=== PATIENT | female | born 1955 | race Caucasian/White ===

== ENCOUNTER → 2017-02-21 | Outpatient (CLI) | payer MEDICARE, MEDICAID ==
[~2017-02-21] MED LIST: /FENO48TA PO; /QUET10TA PO; CALCTAB52 PO; CAMP333T PO; CETI10TA PO; FIBE625T4 PO; FOSA70TA PO; IBUP200T2 PO; MAGN200T3 PO; METF500T PO; MULTLIQ7 PO; NEXI40GR PO; PAXI40TA2 PO; PERC7.5T12 PO; SPIRIVA INH; VITA100037 PO; ZOCO40TA PO
== END ==
LOC: M WUC 09:01
PROVIDERS: ATTEND Anesthesiology Pain Medicine
DX: Z79.899 Other long term (current) drug therapy (principal)

== ENCOUNTER → 2017-08-03 | Outpatient (CLI) | payer MEDICARE, MEDICAID ==
[~2017-08-03] MED LIST changes: +DEBR6.5S4 AD; +FARX1TAB3 PO; +FLON1SPR; +INCR1INH IN; +LAMI1TAB9 PO; +TRAD5TAB PO; +WELLTAB38 PO; +ZOLO100T PO
[2017-08-03 07:26] LABS: MEAN CORPUSCULAR HEMOGLOBIN 31.4 pg (27.0-33.0); MEAN CORPUSCULAR HGB CONC 32.7 g/dl (32.0-36.5); MEAN CORPUSCULAR VOLUME 95.9 fl (80.0-96.0); RED CELL DISTRIBUTION WIDTH 13.5 % (11.5-14.5); WHITE BLOOD COUNT 3.4 K/mm3 (4.0-10.0)
[2017-08-03 07:44] LABS: ALBUMIN 3.9 GM/DL (3.2-5.2); ALBUMIN/GLOBULIN RATIO 1.18 (1.00-1.93); ALKALINE PHOSPHATASE 28 U/L (45-117); ALT/SGPT 26 U/L (12-78); ANION GAP 9 MEQ/L (8-16); AST/SGOT 17 U/L (15-37); BILIRUBIN,TOTAL 0.2 MG/DL (0.2-1.0); BLOOD UREA NITROGEN 18 MG/DL (7-18); CALCIUM LEVEL 9.2 MG/DL (8.8-10.2); CARBON DIOXIDE LEVEL 30 MEQ/L (21-32); CHLORIDE LEVEL 106 MEQ/L (98-107); CHOLESTEROL LEVEL 218 MG/DL (<200); CREATININE FOR GFR 0.55 MG/DL (0.55-1.02); GLOMERULAR FILTRATION RATE > 60.0 (>45); GLUCOSE, FASTING 141 MG/DL (80-110); POTASSIUM SERUM 4.4 MEQ/L (3.5-5.1); SODIUM LEVEL 145 MEQ/L (136-145); TOTAL PROTEIN 7.2 GM/DL (6.4-8.2); TRIGLYCERIDES LEVEL 148 MG/DL (<150)
== END ==
LOC: M LAB 06:12
PROVIDERS: ATTEND Nurse Practitioner Family
DX: E11.8 Type 2 diabetes mellitus with unspecified complications (principal); E78.2 Mixed hyperlipidemia

== ENCOUNTER → 2017-09-06 | Outpatient (CLI) | payer MEDICARE, MEDICAID ==
[~2017-09-06] MED LIST changes: +ISOVUE-370 76% 100ML VIAL (Q9967) As Ordered ONE
--- NOTE | 2017-09-06 17:10 | REP ---
CT UROGRAM, WITH AND WITHOUT IV CONTRAST: CT urogram is performed. Images of the abdomen and pelvis are performed prior to and following the intravenous administration of 100 mL of Isovue-370 with delayed images also performed. Sagittal and coronal reconstruction images are performed. Comparison made with prior study of 05/08/2014. Visualized lung bases demonstrate mild interstitial fibrosis. There are tiny calcified granulomas in the liver and spleen without other definite intrinsic abnormality. The adrenals and pancreas appear unremarkable. The common bile duct is mildly dilated up to 9 mm with no definite intraluminal calculus. Small cysts are seen throughout both kidneys. There are also bilateral calculi. There is a calculus in the mid to lower right renal collecting system measuring approximately 3 mm in diameter. An oval calcification in the right lower pole collecting system measures approximately 1.4 cm in maximum diameter. Another adjacent linear calcification is seen just posterior to that. In the left renal collecting system inferiorly, there is an irregular calcification measuring 7 mm in diameter. There is moderately severe right hydronephrosis without definite hydroureter. There is no left hydronephrosis. Visualize left ureter is not dilated. The right ureter is not opacified with contrast on the delayed images. There is some excretion into the dilated right pelvicaliceal system. There is no abdominal aortic aneurysm. There is no evidence of lymphadenopathy in the abdomen or pelvis. No free air or free fluid is seen. No gross bowel abnormality is seen although evaluation is limited due to lack of oral contrast and lack and the relative lack of intraperitoneal fat. There is no definite pelvic mass. Urinary bladder is mildly distended and is not optimally evaluated. There is a small hiatal hernia. IMPRESSION: Calcified granulomas in the liver and spleen. Common bile duct dilated up to 9 mm without a definite intraluminal calculus. Small cysts are seen of both kidneys and there are also bilateral renal calculi as discussed above. There is moderately severe right hydronephrosis without hydroureter of uncertain significance. Without evidence of a ureteral calculus, consideration must be made for a stricture or neoplastic lesion of the proximal right ureter at the ureteropelvic junction. Signed by Donny Peña MD 09/07/2017 07:56 P
== END ==
LOC: M RAD 15:39
PROVIDERS: ATTEND Nurse Practitioner Women's Health
DX: R31.9 Hematuria, unspecified (principal)
CPT/HCPCS: 74178; Q9967

== ENCOUNTER 2017-09-29 11:45 | Day surgery (SDC) | payer MEDICARE, MEDICAID ==
[~2017-09-29] VITALS: Ht 154.9 cm; Wt 53.5 kg
[~2017-09-29 11:45] MED LIST changes: -ISOVUE-370 76% 100ML VIAL (Q9967) As Ordered ONE
[2017-09-29] MEDS ORDERED: LIDOCAINE 1% MDV 20ML VIAL SQ PRN (12:00)
[2017-09-29] MEDS ORDERED: LR 1,000 ML IV ONE (12:00)
[2017-09-29] MEDS ORDERED: ALBUTEROL SULFATE 2.5 MG/0.5 ML INH NEB SOLN As Ordered ONE (12:41)
[2017-09-29] MEDS ORDERED: ALBUTEROL SULFATE 2.5 MG/0.5 ML INH NEB SOLN INH ONE ×2 (13:15→16:00)
[2017-09-29] MEDS ORDERED: CONRAY-60 60% 50ML VIAL (Q9961) As Ordered ONE (13:41)
[2017-09-29] MEDS ORDERED: MIDAZOLAM INJ 2 MG/2 ML VIAL (J2250) As Ordered ONE (14:04)
[2017-09-29] MEDS ORDERED: fentaNYL 100 MCG/2 ML INJECTION (J3010) As Ordered ONE (14:04)
[2017-09-29] MEDS ORDERED: PROPOFOL 200 MG/20 ML VIAL As Ordered ONE (14:04)
[2017-09-29] MEDS ORDERED: ONDANSETRON 4MG/2ML VIAL (J2405) As Ordered ONE (14:13)
[2017-09-29] MEDS ORDERED: hydrALAZINE INJ 20 MG/ML VIAL As Ordered ONE (15:53)
[2017-09-29] MEDS: hydrALAZINE INJ 20 MG/ML VIAL IV SCH ×2 (15:59→16:12)
[2017-09-29] MEDS ORDERED: fentaNYL 100 MCG/2 ML INJECTION (J3010) IV PRN (16:00)
[2017-09-29] MEDS ORDERED: ONDANSETRON 4MG/2ML VIAL (J2405) IV PRN (16:00)
[2017-09-29] MEDS ORDERED: PERCOCET 5MG/325MG TAB PO PRN ×2 (16:00)
[2017-09-29] MEDS ORDERED: LR 1,000 ML IV SCH (16:00)
[2017-09-29 16:12] VITALS: BP 185/97
[2017-09-29 17:15] VITALS: BP 132/92
--- NOTE | 2017-09-30 06:57 | REP ---
Retrograde pyelogram: Four views. History: Microscopic hematuria. 41 seconds of fluoroscopy time is reported. Findings: A sequence of four last image hold fluoroscopic spot radiographs of the abdomen document ureteral cannulation, contrast injection, hydronephrosis, and ureteral stenting. No laterality markers are apparent. Signed by Javi Chaparro MD 09/30/2017 07:42 A
--- NOTE | 2017-09-30 20:38 | RO ---
DATE OF PROCEDURE: 09/29/2017 PREPROCEDURE DIAGNOSIS: Microscopic hematuria, right hydronephrosis. POSTPROCEDURE DIAGNOSIS: Right ureteral strictures, microscopic hematuria, right hydronephrosis. PROCEDURE PERFORMED: Cystoscopy, right ureteroscopy with biopsies, right retrograde pyelogram with intraoperative interpretation of images, right ureteral stent placement. SURGEON: Dr. Marcelino Salas INTERIOR DESIGN INSTRUCTOR: None. ANESTHESIA: General. OPERATIVE INDICATIONS: This is a 62-year-old female who presented to our office for a workup of microscopic hematuria. A CT urogram was performed and notable for severe right hydronephrosis down to the level of the proximal ureter with no obvious cause of obstruction. She was brought to the operating room today to investigate this. DESCRIPTION OF PROCEDURE: The patient was brought to the operating room and general anesthesia was induced. Prophylactic antibiotics were infused. She was then placed in the dorsal lithotomy position and prepped and draped in the usual sterile fashion. A rigid cystoscope was then inserted into the urethral meatus and advanced to the bladder. The bladder was thoroughly examined and there were no abnormalities seen. Next, a guidewire was advanced up the right collecting system. We then went up the right collecting system with a short semi-rigid ureteroscope, and of note, there were several areas of strictures within the right ureter. The ureteral mucosa appeared edematous, and in some areas, it did appear like she might have had small masses. At this point , several ureteral washings were obtained along the course of the entire ureter, all the way up to the kidney. These ureteral washings were handed off the table and will be sent for pathologic analysis. The ureteroscope was then advanced up into the proximal ureter, and a few biopsies were obtained of abnormal appearing mucosa. Once that was done, the short semi-rigid ureteroscope was traded out for a flexible ureteroscope, and the kidney was thoroughly examined. Of note, I did not see any stones within the kidney. She had large amounts of whitish-yellow debris floating around and settling at the bottom of her calices. I did not see any obvious tumors inside her kidney either. At this point, a retrograde pyelogram was performed. It was notable for severe right hydronephrosis with no extravasation. The ureteroscope was then removed, and the previously placed wire was utilized to advance a #7-Finnish x 22-32 cm JJ ureteral stent up into the right collecting system. The wire was then removed, and there were adequate curls of the stent in the right renal pelvis and in the bladder. The bladder was then emptied of all fluids, and this marked the conclusion of the procedure. The patient was then taken out of the dorsal lithotomy position, awakened from anesthesia and transported to the recovery room in stable condition. ESTIMATED BLOOD LOSS: 0 mL. COMPLICATIONS: None. SPECIMENS: Right ureteral washing for cytology, right ureteral biopsies. PLAN: The patient will followup in the clinic in a week or two to discuss pathology results and also discuss management of her stent. EDWARD
== END 2017-09-29 17:35 | disposition home or self-care (01) ==
LOC: M SDC 11:45
PROVIDERS: ATTEND Urology
DX: N13.30 Unspecified hydronephrosis (principal); R31.29 Other microscopic hematuria; E11.9 Type 2 diabetes mellitus without complications; I10 Essential (primary) hypertension; E78.5 Hyperlipidemia, unspecified; K21.9 Gastro-esophageal reflux disease without esophagitis; F32.9 Major depressive disorder, single episode, unspecified; F41.9 Anxiety disorder, unspecified; Z79.899 Other long term (current) drug therapy; F70 Mild intellectual disabilities
CPT/HCPCS: 52204; 52332; 74420; 88108; 88305; C1769; C1894; C2617; J2250; J2405; J3010; Q9961

== ENCOUNTER → 2017-10-18 | Outpatient (REF) | payer MEDICARE, MEDICAID ==
[~2017-10-18] MED LIST changes: +CEFAD50CA PO; +MACR100C43 PO; +VITMTA PO
== END ==
LOC: M LAB REF 09:29
PROVIDERS: ATTEND Physician Assistant
DX: N39.0 Urinary tract infection, site not specified (principal)

== ENCOUNTER 2017-10-22 05:54 | Day surgery (SDC) | payer MEDICARE, MEDICAID ==
[~2017-10-22] VITALS: Ht 162.6 cm; Wt 51.6 kg
[~2017-10-22 05:54] MED LIST changes: -CEFAD50CA PO; -MACR100C43 PO
[2017-10-22] MEDS ORDERED: LR 1,000 ML IV ONE (06:15)
[2017-10-22] MEDS ORDERED: MACR100C43 PO (06:56)
[2017-10-22] MEDS ORDERED: CEFAD50CA PO (06:56)
[2017-10-22 07:42] LABS: MEAN CORPUSCULAR HEMOGLOBIN 29.3 pg (27.0-33.0); MEAN CORPUSCULAR HGB CONC 32.4 g/dl (32.0-36.5); MEAN CORPUSCULAR VOLUME 90.4 fl (80.0-96.0); PLATELET COUNT, AUTOMATED 267 10^3/uL (150-450); RED CELL DISTRIBUTION WIDTH 14.6 % (11.5-14.5)
[2017-10-22 07:56] LABS: ANION GAP 6 MEQ/L (8-16); BLOOD UREA NITROGEN 19 MG/DL (7-18); CALCIUM LEVEL 9.3 MG/DL (8.8-10.2); CARBON DIOXIDE LEVEL 31 MEQ/L (21-32); CHLORIDE LEVEL 106 MEQ/L (98-107); CREATININE FOR GFR 0.47 MG/DL (0.55-1.02); GLOMERULAR FILTRATION RATE > 60.0 (>45); GLUCOSE, FASTING 170 MG/DL (80-110); POTASSIUM SERUM 3.6 MEQ/L (3.5-5.1); SODIUM LEVEL 143 MEQ/L (136-145)
[2017-10-22] MEDS ORDERED: CONRAY-60 60% 50ML VIAL (Q9961) As Ordered ONE (09:22)
[2017-10-22] MEDS ORDERED: fentaNYL 100 MCG/2 ML INJECTION (J3010) As Ordered ONE (09:37)
[2017-10-22] MEDS ORDERED: MIDAZOLAM INJ 2 MG/2 ML VIAL (J2250) As Ordered ONE (09:37)
[2017-10-22] MEDS ORDERED: KETOROLAC 60 MG/2 ML VIAL (J1885) As Ordered ONE (09:38)
[2017-10-22] MEDS ORDERED: ONDANSETRON 4MG/2ML VIAL (J2405) As Ordered ONE (09:38)
[2017-10-22] MEDS ORDERED: dexameTHASONE 4 MG/ML 1ML VIAL (J1100) As Ordered ONE (09:38)
[2017-10-22] MEDS ORDERED: PROPOFOL 200 MG/20 ML VIAL As Ordered ONE (09:38)
[2017-10-22] MEDS ORDERED: ePHEDrine SULFATE 25 MG/5 ML(5MG/ML) SYRINGE As Ordered ONE (09:40)
[2017-10-22] MEDS ORDERED: LR 1,000 ML IV SCH (10:45)
[2017-10-22] MEDS ORDERED: HYDROmorphone HCL 1 MG/ML SYRINGE (J1170) IV PRN (10:45)
[2017-10-22] MEDS ORDERED: ONDANSETRON 4MG/2ML VIAL (J2405) IV PRN (10:45)
[2017-10-22] MEDS ORDERED: PERCOCET 5MG/325MG TAB PO PRN ×2 (10:45)
[2017-10-22] MEDS ORDERED: fentaNYL 100 MCG/2 ML INJECTION (J3010) IV PRN (10:45)
[2017-10-22 12:14] VITALS: BP 174/112
--- NOTE | 2017-10-23 08:12 | RO ---
DATE OF PROCEDURE: 10/22/2017 PREPROCEDURE DIAGNOSIS: Right ureteral stricture. POSTPROCEDURE DIAGNOSIS: Right ureteral stricture. PROCEDURE: Cystoscopy, right ureteroscopy with balloon dilation of ureteral strictures, right retrograde pyelogram with intraoperative interpretation of images, right ureteral stent exchange. SURGEON: Dr. Marcelino Salas TELE RN: None. ANESTHESIA: General. OPERATIVE INDICATIONS: This is a 62-year-old female who underwent recent right ureteroscopy with biopsies. Her biopsies came back negative for cancer. On ureteroscopy, she was noted to have moderate narrowing and strictures of very proximal ureter. She was brought to the operating room today for treatment. DESCRIPTION OF PROCEDURE: The patient was brought to the operating room and general anesthesia induced. Prophylactic antibiotics were infused. She was then placed in the dorsal lithotomy position and prepped and draped in the usual sterile fashion. A rigid cystoscope was then inserted into the urethral meatus and advanced to the bladder. Once within the bladder, the previously placed stent was seen. The stent was then grasped and withdrawn until the distal end of the stent was seen. I then advanced a wire up the stent and into the right collecting system. The stent was then removed leaving the wire in place. I then advanced the ureteral access sheath up into the right collecting system. Of note, the access sheath was able to be advanced into the ureter a lot easier than it was during her previous procedure. Once the access sheath was in, I then advanced a flexible ureteroscope up into the right collecting system. Of note, the patient still had moderate narrowing of her proximal right ureter. A retrograde pyelogram was performed and was notable for hydronephrosis down to the level of the proximal ureter. I then inserted a balloon and balloon dilated the proximal ureter in several different areas. Once that was done, I went back in with the flexible ureteroscope and examined it, and it did appear that the ureter did open some. After that, the ureteroscope was removed along with the access sheath and no additional abnormalities were seen other than, of note, there did appear to be several polyps along the length of the ureter. At this point, I then utilized the previously placed wire to advance a 7-Kiswahili x 22-32 cm JJ ureteral stent up into the right collecting system. The wire was then removed, and there were adequate curls of the stent in the right renal pelvis and in the bladder. The bladder was then emptied of all fluids and this marked the conclusion of the procedure. The patient was then taken out of the dorsal lithotomy position, awakened from anesthesia and transported to the recovery room in stable condition. Estimated blood loss: 0 mL. Complications: None. Specimens: None. PLAN: I will have the patient followup in the clinic in a few weeks for stent removal. I will followup that up with a renal ultrasound in approximately 6 weeks to see if there is any persistent hydronephrosis. EDWARD
== END 2017-10-22 12:35 | disposition home or self-care (01) ==
LOC: M SDC 05:54
PROVIDERS: ATTEND Urology
DX: N13.1 Hydronephrosis with ureteral stricture, not elsewhere classified (principal); N39.0 Urinary tract infection, site not specified; E11.9 Type 2 diabetes mellitus without complications; I10 Essential (primary) hypertension; J44.9 Chronic obstructive pulmonary disease, unspecified; E78.5 Hyperlipidemia, unspecified; K21.9 Gastro-esophageal reflux disease without esophagitis; G43.909 Migraine, unspecified, not intractable, without status migrainosus; E20.9 Hypoparathyroidism, unspecified; F32.9 Major depressive disorder, single episode, unspecified; F41.9 Anxiety disorder, unspecified; F42.9 Obsessive-compulsive disorder, unspecified; F70 Mild intellectual disabilities; M85.80 Other specified disorders of bone density and structure, unspecified site; Z87.442 Personal history of urinary calculi; Z87.891 Personal history of nicotine dependence; Z88.4 Allergy status to anesthetic agent; Z79.899 Other long term (current) drug therapy; Z79.51 Long term (current) use of inhaled steroids; Z79.84 Long term (current) use of oral hypoglycemic drugs
CPT/HCPCS: 36415; 52332; 52341; 74420; 80048; 85027; C1758; C1894; C2617; J0690; J1100; J1885; J2250; J2405; J3010; Q9961

== ENCOUNTER → 2017-11-03 | Outpatient (CLI) | payer MEDICARE, MEDICAID ==
[~2017-11-03] MED LIST changes: +CEFAD50CA PO; +MACR100C43 PO
--- NOTE | 2017-11-03 10:54 | REPMRS ---
Patient History The patient states she had a clinical breast exam in 11/07 Patient is postmenopausal. No known family history of cancer. Digital Woman Screen Mammo: November 03, 2017 - Exam #: [id number] Bilateral CC and MLO view(s) were taken. Technologist: [place], Technologist Prior study comparison: August 14, 2016, digital woman screen mammo performed at [facility] to [facility]. August 14, 2015, digital woman screen mammo performed at [facility] to [facility]. FINDINGS: The breast tissue is extremely dense which could obscure a lesion on mammography. There is no evidence of cancer on this mammogram. ASSESSMENT: BI-RADS/ACR category 2 mammogram. Benign finding(s). Recommendation Routine screening mammogram of both breasts in 1 year (for women over age 40). This mammogram was interpreted with the aid of an FDA-approved computer-aided dectection system. Electronically Signed By: Donny Peña MD 11/03/17 [id number]
== END ==
LOC: M WHC 09:16
PROVIDERS: ATTEND Nurse Practitioner Family
DX: Z12.31 Encounter for screening mammogram for malignant neoplasm of breast (principal); Z78.0 Asymptomatic menopausal state

== ENCOUNTER → 2017-11-03 | Outpatient (REF) | payer MEDICARE, MEDICAID | LOC: M SFHCWAGY 09:35 | PROVIDERS: ATTEND Nurse Practitioner Family | DX: Z12.4 Encounter for screening for malignant neoplasm of cervix (principal); N95.2 Postmenopausal atrophic vaginitis ==

== ENCOUNTER → 2017-12-10 | Outpatient (CLI) | payer MEDICARE, MEDICAID ==
[2017-12-10 15:50] LABS: CREATININE FOR GFR 0.63 MG/DL (0.55-1.02); FREE T4 0.89 NG/DL (0.76-1.46); GLOMERULAR FILTRATION RATE > 60.0 (>45)
[2017-12-10 15:50] LABS: BLOOD UREA NITROGEN 16 MG/DL (7-18)
== END ==
LOC: M LAB 14:41
DX: E03.9 Hypothyroidism, unspecified (principal); E85.9 Amyloidosis, unspecified
CPT/HCPCS: 82565

== ENCOUNTER → 2018-01-04 | Outpatient (CLI) | payer MEDICARE, MEDICAID | LOC: M RAD 10:06 | DX: N13.5 Crossing vessel and stricture of ureter without hydronephrosis (principal) | CPT/HCPCS: 76775 ==

== ENCOUNTER → 2018-01-05 | Outpatient (REF) | payer MEDICARE, MEDICAID | LOC: M LAB REF 13:36 | DX: E85.9 Amyloidosis, unspecified (principal) | CPT/HCPCS: 88305; 88313 ==

== ENCOUNTER → 2018-02-01 | Outpatient (CLI) | payer MEDICARE, MEDICAID | LOC: M RAD 10:52 | DX: N13.5 Crossing vessel and stricture of ureter without hydronephrosis (principal); R93.41 Abnormal radiologic findings on diagnostic imaging of renal pelvis, ureter, or bladder | CPT/HCPCS: 74176 ==

== ENCOUNTER → 2018-02-15 | Outpatient (CLI) | payer MEDICARE, MEDICAID ==
[2018-02-15 07:48] LABS: HEMATOCRIT 39.8 % (36.0-47.0); HEMOGLOBIN 12.1 g/dl (12.0-16.0); MEAN CORPUSCULAR HEMOGLOBIN 26.8 pg (27.0-33.0); MEAN CORPUSCULAR HGB CONC 30.4 g/dl (32.0-36.5); MEAN CORPUSCULAR VOLUME 88.1 fl (80.0-96.0); PLATELET COUNT, AUTOMATED 300 10^3/uL (150-450); RED BLOOD COUNT 4.52 10^6/uL (4.00-5.40); RED CELL DISTRIBUTION WIDTH 15.3 % (11.5-14.5); WHITE BLOOD COUNT 4.7 10^3/uL (4.0-10.0)
[2018-02-15 08:02] LABS: ALBUMIN 3.9 GM/DL (3.2-5.2); ALBUMIN/GLOBULIN RATIO 1.15 (1.00-1.93); ALKALINE PHOSPHATASE 48 U/L (45-117); ALT/SGPT 26 U/L (12-78); ANION GAP 5 MEQ/L (8-16); AST/SGOT 17 U/L (7-37); BILIRUBIN,TOTAL 0.2 MG/DL (0.2-1.0); BLOOD UREA NITROGEN 19 MG/DL (7-18); CALCIUM LEVEL 9.1 MG/DL (8.8-10.2); CARBON DIOXIDE LEVEL 34 MEQ/L (21-32); CHLORIDE LEVEL 105 MEQ/L (98-107); CHOLESTEROL LEVEL 224 MG/DL (<200); CHOLESTEROL RISK RATIO 2.765 (<5); CREATININE FOR GFR 0.49 MG/DL (0.55-1.30); GLOMERULAR FILTRATION RATE > 60.0 (>45); GLUCOSE, FASTING 171 MG/DL (70-100); HDL CHOLESTEROL 81 MG/DL (>40); LDL CHOLESTEROL 117.6 MG/DL (<100); NON-HDL-C 143 MG/DL; SODIUM LEVEL 144 MEQ/L (136-145); TOTAL PROTEIN 7.3 GM/DL (6.4-8.2); TRIGLYCERIDES LEVEL 127 MG/DL (<150)
== END ==
LOC: M LAB 06:10
DX: E11.9 Type 2 diabetes mellitus without complications (principal); Z01.818 Encounter for other preprocedural examination (principal); I10 Essential (primary) hypertension; E78.5 Hyperlipidemia, unspecified; N39.0 Urinary tract infection, site not specified; R35.0 Frequency of micturition; R39.14 Feeling of incomplete bladder emptying
CPT/HCPCS: 80053

== ENCOUNTER → 2018-02-15 | Outpatient (REF) | payer MEDICARE, MEDICAID | LOC: M SMT 16:47 | DX: Z01.818 Encounter for other preprocedural examination (principal); N13.5 Crossing vessel and stricture of ureter without hydronephrosis; N39.0 Urinary tract infection, site not specified | CPT/HCPCS: 87088; 87186 ==

== ENCOUNTER 2018-03-11 07:20 | Day surgery (SDC) | payer MEDICARE, MEDICAID ==
[2018-03-11 08:25] LABS: BEDSIDE GLUCOSE 162 MG/DL (80-115)
[2018-03-11] MEDS: LR 1,000 ML IV ×2 (08:26)
[2018-03-11] MEDS ORDERED: fentaNYL 100 MCG/2 ML INJECTION (J3010) As Ordered ×2 (10:20)
[2018-03-11] MEDS ORDERED: MIDAZOLAM INJ 2 MG/2 ML VIAL (J2250) As Ordered ×2 (10:20)
[2018-03-11] MEDS ORDERED: LIDOCAINE 2% INJ 100 MG/5 ML SDV (FOR ANES.) As Ordered ×2 (10:22)
[2018-03-11] MEDS ORDERED: PROPOFOL 200 MG/20 ML VIAL As Ordered ×2 (10:22)
[2018-03-11] MEDS: CONRAY-60 60% 50ML VIAL (Q9961) As Ordered ×2 (10:36)
[2018-03-11] MEDS: LIDOCAINE 2% 5ML JELLY UROJET As Ordered ×2 (10:36)
[2018-03-11] MEDS ORDERED: ONDANSETRON 4MG/2ML VIAL (J2405) As Ordered ×2 (11:25)
== END 2018-03-11 12:16 | disposition home or self-care (01) ==
LOC: M SDC 07:20
DX: N13.5 Crossing vessel and stricture of ureter without hydronephrosis (principal); I10 Essential (primary) hypertension; E78.5 Hyperlipidemia, unspecified; E11.9 Type 2 diabetes mellitus without complications; J44.9 Chronic obstructive pulmonary disease, unspecified; K21.9 Gastro-esophageal reflux disease without esophagitis; G31.84 Mild cognitive impairment of uncertain or unknown etiology; Z79.899 Other long term (current) drug therapy
CPT/HCPCS: 52332

== ENCOUNTER 2018-03-14 21:25 | Inpatient (IN) | payer MEDICARE, MEDICAID ==
[2018-03-14] MEDS ORDERED: ACETAMINOPHEN 325 MG TAB PO (22:00)
[2018-03-14] MEDS ORDERED: diphenhydrAMINE INJ 50MG/ML VIAL (J1200) IV (22:03)
[2018-03-14] MEDS: IBUPROFEN 600 MG TAB PO (22:07)
[2018-03-14] MEDS: cefTRIAXone SOD 2 GM in D5W MINI-BAG PLUS 50 ML IV (22:07)
[2018-03-14 22:37] LABS: HEMATOCRIT 32.4 % (36.0-47.0); HEMOGLOBIN 10.2 g/dl (12.0-15.5); MEAN CORPUSCULAR HEMOGLOBIN 25.8 pg (27.0-33.0); MEAN CORPUSCULAR HGB CONC 31.5 g/dl (32.0-36.5); PLATELET COUNT, AUTOMATED 186 10^3/uL (150-450); RED BLOOD COUNT 3.95 10^6/uL (4.00-5.40); RED CELL DISTRIBUTION WIDTH 15.8 % (11.5-14.5); WHITE BLOOD COUNT 6.6 10^3/uL (4.0-10.0)
[2018-03-14 23:00] LABS: LACTIC ACID SEPSIS PROTOCOL 1.5 MMOL/L (0.4-2.0)
[2018-03-14 23:00] LABS: ALBUMIN/GLOBULIN RATIO 0.91 (1.00-1.93); ALKALINE PHOSPHATASE 46 U/L (45-117); ALT/SGPT 19 U/L (12-78); ANION GAP 7 MEQ/L (8-16); AST/SGOT 13 U/L (7-37); BILIRUBIN,DIRECT 0.1 MG/DL (0.0-0.2); BILIRUBIN,TOTAL 0.3 MG/DL (0.2-1.0); BLOOD UREA NITROGEN 30 MG/DL (7-18); CALCIUM LEVEL 9.1 MG/DL (8.8-10.2); CARBON DIOXIDE LEVEL 28 MEQ/L (21-32); CHLORIDE LEVEL 100 MEQ/L (98-107); CREATININE FOR GFR 0.76 MG/DL (0.55-1.30); GLOMERULAR FILTRATION RATE > 60.0 (>45); GLUCOSE, FASTING 222 MG/DL (70-100); POTASSIUM SERUM 3.4 MEQ/L (3.5-5.1); SODIUM LEVEL 135 MEQ/L (136-145); TOTAL PROTEIN 6.3 GM/DL (6.4-8.2)
[2018-03-14 23:02] LABS: APPEARANCE, URINE CLOUDY (CLEAR); BACTERIA, URINE AUTO 1+ (NEGATIVE); BILIRUBIN, URINE AUTO NEGATIVE (NEGATIVE); BLOOD, URINE BLOOD 3+ (NEGATIVE); COLOR, URINE YELLOW (YELLOW); GLUCOSE, URINE (UA) AUTO 3+ mg/dL (NEGATIVE); KETONE, URINE AUTO NEGATIVE (NEGATIVE); LEUKOCYTE ESTERASE, URINE AUTO 3+ (NEGATIVE); MUCUS, URINE SMALL (NEGATIVE); NITRITE, URINE AUTO POSITIVE (NEGATIVE); PROTEIN, URINE AUTO 2+ mg/dL (NEGATIVE); RBC, URINE AUTO TNTC /HPF (0-3); SQUAMOUS EPITHELIAL CELL UR AU 0 /HPF (0-6); UROBILINOGEN, URINE AUTO 0.2 mg/dL (0.0-2.0); WBC, URINE AUTO TNTC /HPF (0-3)
[2018-03-14 23:04] LABS: ADD MANUAL DIFFER YES; DIFF SLIDE NUMBER 369; POSITIVE MORPH POS FLAG
[2018-03-14] MEDS: NS 1,000 ML IV (23:06)
[2018-03-14 23:42] LABS: ANISOCYTOSIS 1+; ATYPICAL LYMPH 1 % (0-5); BANDS 1 % (< 11); BASOPHILS 2 % (0-4); LYMPHOCYTES 4 % (16-52); MONOCYTES 3 % (0-8); NEUTROPHILS 89 % (35-75); PLATELET ESTIMATE NORMAL (NORMAL)
[2018-03-15 01:58] LABS: ABG BASE EXCESS 1.5 (-2.0-2.0); ABG HCO3 25.2 MEQ/L (22.0-26.0); ABG O2 SATURATION 97.7 % (95.0-99.0); ABG PARTIAL PRESSURE CO2 36.5 mmHg (35.0-45.0); ABG PARTIAL PRESSURE O2 90.1 mmHg (75.0-100.0); ABG STANDARD HCO3 25.8 MEQ/L (22.0-26.0); ABG TOTAL CO2 26.3 MEQ/L (23.0-31.0); ABG pH (ARTERIAL) 7.457 UNITS (7.350-7.450)
[2018-03-15] MEDS ORDERED: MORPHINE 4 MG/ML 1ML VIAL/SYRINGE (J2270) IV (02:30)
[2018-03-15] MEDS ORDERED: ONDANSETRON 4MG/2ML VIAL (J2405) IV ×2 (02:30→13:45)
[2018-03-15] MEDS ORDERED: GLUCAGON FOR INJ 1 MG VIAL (J1610) SC (03:15)
[2018-03-15] MEDS ORDERED: GLUCOSE 4 GM CHEW TABLET PO (03:15)
[2018-03-15] MEDS ORDERED: DEXTROSE 50% 50 ML SYRINGE IV (03:15)
[2018-03-15] MEDS: ACETAMINOPHEN TAB 650MG DOSE (2X325MG) PO ×2 (04:15→20:31)
[2018-03-15] MEDS: NS 1,000 ML IV ×3 (04:16→18:39)
[2018-03-15 06:07] LABS: BEDSIDE GLUCOSE 162 MG/DL (80-115)
[2018-03-15] MEDS: HumaLOG INSULIN (NovoLOG) PER UNIT SC ×4 (07:01→21:00)
[2018-03-15] MEDS: buPROPion (WELLBUTRIN SR) 100 MG SR TAB PO ×2 (09:12→19:35)
[2018-03-15] MEDS: ACAMPROSATE CALCIUM 333 MG TABLET (CAMPRAL) PO ×2 (09:12→19:35)
[2018-03-15] MEDS: SERTRALINE 100 MG TAB PO (09:12)
[2018-03-15] MEDS: cefTRIAXone SOD 1 GM in D5W MINI-BAG PLUS 50 ML IV ×2 (09:12→20:31)
[2018-03-15] MEDS ORDERED: IPRATROPIUM 0.5MG/ALBUTEROL 2.5MG INH SOL UD 3ML (DUONEB)(J7620) NEB (11:15)
[2018-03-15 11:45] LABS: BEDSIDE GLUCOSE 163 MG/DL (80-115)
[2018-03-15] MEDS ORDERED: MIDAZOLAM INJ 2 MG/2 ML VIAL (J2250) As Ordered (11:58)
[2018-03-15] MEDS ORDERED: fentaNYL 100 MCG/2 ML INJECTION (J3010) As Ordered (12:07)
[2018-03-15] MEDS ORDERED: PROPOFOL 200 MG/20 ML VIAL As Ordered (12:11)
[2018-03-15] MEDS ORDERED: LIDOCAINE 2% INJ 100 MG/5 ML SDV (FOR ANES.) As Ordered (12:11)
[2018-03-15] MEDS ORDERED: dexameTHASONE 4 MG/ML 1ML VIAL (J1100) As Ordered (12:11)
[2018-03-15] MEDS ORDERED: ONDANSETRON 4MG/2ML VIAL (J2405) As Ordered (12:12)
[2018-03-15] MEDS: LIDOCAINE 2% 5ML JELLY UROJET As Ordered (12:44)
[2018-03-15] MEDS: CONRAY-60 60% 50ML VIAL (Q9961) As Ordered (12:45)
[2018-03-15] MEDS: LR 1,000 ML IV (13:45)
[2018-03-15] MEDS ORDERED: fentaNYL 100 MCG/2 ML INJECTION (J3010) IV (13:45)
[2018-03-15] MEDS: MAGNESIUM OXIDE 400 MG TAB (MAG-OX) PO ×2 (14:21→19:35)
[2018-03-15] MEDS: FENOFIBRATE 48 MG TAB (TRICOR) PO (14:24)
[2018-03-15] MEDS: SIMVASTATIN 40 MG TAB PO (14:25)
[2018-03-15 17:31] LABS: BEDSIDE GLUCOSE 530 MG/DL (80-115)
[2018-03-15 18:17] LABS: BEDSIDE GLUCOSE CONFIRMATION 288 MG/DL (LESS THAN 200)
[2018-03-15] MEDS: PERCOCET 5MG/325MG TAB PO (19:34)
[2018-03-15] MEDS: FLUTICASONE PROP 0.05% NASAL SPRAY 16 GM (FLONASE) (19:36)
[2018-03-15 21:08] LABS: BEDSIDE GLUCOSE 223 MG/DL (80-115)
[2018-03-16] MEDS: NS 1,000 ML IV ×2 (03:34→14:15)
[2018-03-16 07:58] LABS: HEMATOCRIT 32.6 % (36.0-47.0); HEMOGLOBIN 10.2 g/dl (12.0-15.5); MEAN CORPUSCULAR HGB CONC 31.3 g/dl (32.0-36.5); PLATELET COUNT, AUTOMATED 181 10^3/uL (150-450); RED BLOOD COUNT 3.93 10^6/uL (4.00-5.40); RED CELL DISTRIBUTION WIDTH 15.9 % (11.5-14.5); WHITE BLOOD COUNT 4.6 10^3/uL (4.0-10.0)
[2018-03-16 08:00] LABS: BEDSIDE GLUCOSE 230 MG/DL (80-115)
[2018-03-16 08:10] LABS: ADD MANUAL DIFFER YES; DIFF SLIDE NUMBER 52; POSITIVE MORPH POS FLAG
[2018-03-16 08:22] LABS: ANION GAP 6 MEQ/L (8-16); BLOOD UREA NITROGEN 19 MG/DL (7-18); CALCIUM LEVEL 8.3 MG/DL (8.8-10.2); CARBON DIOXIDE LEVEL 28 MEQ/L (21-32); CHLORIDE LEVEL 102 MEQ/L (98-107); CREATININE FOR GFR 0.54 MG/DL (0.55-1.30); GLOMERULAR FILTRATION RATE > 60.0 (>45); GLUCOSE, FASTING 179 MG/DL (70-100); SODIUM LEVEL 136 MEQ/L (136-145)
[2018-03-16] MEDS: HumaLOG INSULIN (NovoLOG) PER UNIT SC ×4 (08:32→20:59)
[2018-03-16] MEDS: ACAMPROSATE CALCIUM 333 MG TABLET (CAMPRAL) PO ×2 (08:33→21:06)
[2018-03-16] MEDS: SIMVASTATIN 40 MG TAB PO (08:33)
[2018-03-16] MEDS: MAGNESIUM OXIDE 400 MG TAB (MAG-OX) PO ×2 (08:33→21:06)
[2018-03-16] MEDS: SERTRALINE 100 MG TAB PO (08:33)
[2018-03-16] MEDS: buPROPion (WELLBUTRIN SR) 100 MG SR TAB PO ×2 (08:33→21:07)
[2018-03-16] MEDS: FENOFIBRATE 48 MG TAB (TRICOR) PO (08:34)
[2018-03-16 08:46] LABS: BEDSIDE GLUCOSE > 600 MG/DL (80-115)
[2018-03-16 09:35] LABS: ATYPICAL LYMPH 1 % (0-5); BANDS 4 % (< 11); LYMPHOCYTES 6 % (16-52); MONOCYTES 3 % (0-8); NEUTROPHILS 86 % (35-75); PLATELET ESTIMATE NORMAL (NORMAL)
[2018-03-16 09:36] LABS: ANISOCYTOSIS 1+; HYPOCHROMASIA 1+
[2018-03-16] MEDS: cefTRIAXone SOD 1 GM in D5W MINI-BAG PLUS 50 ML IV ×2 (10:54→21:06)
[2018-03-16 12:05] LABS: BEDSIDE GLUCOSE 157 MG/DL (80-115)
[2018-03-16] MEDS: POTASSIUM CHLORIDE 10 MEQ SR TABLET PO (14:13)
[2018-03-16 17:03] LABS: BEDSIDE GLUCOSE 194 MG/DL (80-115)
[2018-03-16 20:51] LABS: BEDSIDE GLUCOSE 205 MG/DL (80-115)
[2018-03-16] MEDS: FLUTICASONE PROP 0.05% NASAL SPRAY 16 GM (FLONASE) (21:06)
[2018-03-17] MEDS: NS 1,000 ML IV (03:52)
[2018-03-17 06:41] LABS: BASO % 0.2 % (0.0-1.0); EOS % 0.2 % (0.0-3.0); HEMATOCRIT 33.9 % (36.0-47.0); HEMOGLOBIN 10.7 g/dl (12.0-15.5); IMMATURE GRANULOCYTE % 1.2 % (0-3.0); LYMPH # 0.6 10^3/uL (1.5-4.5); LYMPH % 13.8 % (24.0-44.0); MEAN CORPUSCULAR HEMOGLOBIN 25.9 pg (27.0-33.0); MEAN CORPUSCULAR HGB CONC 31.6 g/dl (32.0-36.5); MEAN CORPUSCULAR VOLUME 82.1 fl (80.0-96.0); MONO # 0.5 10^3/uL (0.0-0.8); MONO % 11.4 % (0.0-5.0); NEUTROPHILS % 73.2 % (36.0-66.0); PLATELET COUNT, AUTOMATED 177 10^3/uL (150-450); RED BLOOD COUNT 4.13 10^6/uL (4.00-5.40); RED CELL DISTRIBUTION WIDTH 15.9 % (11.5-14.5); WHITE BLOOD COUNT 4.1 10^3/uL (4.0-10.0)
[2018-03-17 07:10] LABS: ANION GAP 5 MEQ/L (8-16); BLOOD UREA NITROGEN 13 MG/DL (7-18); CALCIUM LEVEL 8.5 MG/DL (8.8-10.2); CARBON DIOXIDE LEVEL 30 MEQ/L (21-32); CHLORIDE LEVEL 104 MEQ/L (98-107); CREATININE FOR GFR 0.45 MG/DL (0.55-1.30); GLOMERULAR FILTRATION RATE > 60.0 (>45); GLUCOSE, FASTING 196 MG/DL (70-100); POTASSIUM SERUM 3.1 MEQ/L (3.5-5.1); SODIUM LEVEL 139 MEQ/L (136-145)
[2018-03-17] MEDS: ACAMPROSATE CALCIUM 333 MG TABLET (CAMPRAL) PO ×2 (08:27→22:09)
[2018-03-17] MEDS: HumaLOG INSULIN (NovoLOG) PER UNIT SC ×4 (08:27→21:00)
[2018-03-17] MEDS: buPROPion (WELLBUTRIN SR) 100 MG SR TAB PO ×2 (08:27→22:09)
[2018-03-17] MEDS: FENOFIBRATE 48 MG TAB (TRICOR) PO (08:27)
[2018-03-17] MEDS: SIMVASTATIN 40 MG TAB PO (08:27)
[2018-03-17] MEDS: SERTRALINE 100 MG TAB PO (08:27)
[2018-03-17] MEDS: MEROPENEM INJ 1 GM in APPROPRIATE DILUENT 1 EA IV ×2 (10:23→17:36)
[2018-03-17 12:01] LABS: BEDSIDE GLUCOSE 162 MG/DL (80-115)
[2018-03-17] MEDS: POTASSIUM CHLORIDE 10 MEQ SR TABLET PO ×2 (13:28→22:09)
[2018-03-17 17:07] LABS: BEDSIDE GLUCOSE 291 MG/DL (80-115)
[2018-03-17 21:42] LABS: BEDSIDE GLUCOSE 175 MG/DL (80-115)
[2018-03-17] MEDS: FLUTICASONE PROP 0.05% NASAL SPRAY 16 GM (FLONASE) (22:09)
[2018-03-18] MEDS: MEROPENEM INJ 1 GM in APPROPRIATE DILUENT 1 EA IV ×3 (00:17→17:39)
[2018-03-18 06:05] LABS: BASO % 0.2 % (0.0-1.0); EOS % 0.8 % (0.0-3.0); HEMATOCRIT 34.5 % (36.0-47.0); HEMOGLOBIN 10.9 g/dl (12.0-15.5); IMMATURE GRANULOCYTE % 3.2 % (0-3.0); LYMPH # 0.9 10^3/uL (1.5-4.5); LYMPH % 16.8 % (24.0-44.0); MEAN CORPUSCULAR HEMOGLOBIN 25.7 pg (27.0-33.0); MEAN CORPUSCULAR HGB CONC 31.6 g/dl (32.0-36.5); MEAN CORPUSCULAR VOLUME 81.4 fl (80.0-96.0); MONO # 0.6 10^3/uL (0.0-0.8); MONO % 10.9 % (0.0-5.0); NEUTROPHILS # 3.4 10^3/uL (1.8-7.7); NEUTROPHILS % 68.1 % (36.0-66.0); PLATELET COUNT, AUTOMATED 212 10^3/uL (150-450); RED BLOOD COUNT 4.24 10^6/uL (4.00-5.40); WHITE BLOOD COUNT 5.1 10^3/uL (4.0-10.0)
[2018-03-18 06:23] LABS: ANION GAP 5 MEQ/L (8-16); BLOOD UREA NITROGEN 12 MG/DL (7-18); CALCIUM LEVEL 8.6 MG/DL (8.8-10.2); CARBON DIOXIDE LEVEL 29 MEQ/L (21-32); CHLORIDE LEVEL 106 MEQ/L (98-107); CREATININE FOR GFR 0.41 MG/DL (0.55-1.30); GLOMERULAR FILTRATION RATE > 60.0 (>45); GLUCOSE, FASTING 224 MG/DL (70-100); POTASSIUM SERUM 3.7 MEQ/L (3.5-5.1); SODIUM LEVEL 140 MEQ/L (136-145)
[2018-03-18] MEDS: HumaLOG INSULIN (NovoLOG) PER UNIT SC ×4 (08:01→21:00)
[2018-03-18] MEDS: POTASSIUM CHLORIDE 10 MEQ SR TABLET PO ×2 (10:23→21:27)
[2018-03-18] MEDS: ACAMPROSATE CALCIUM 333 MG TABLET (CAMPRAL) PO ×2 (10:24→21:27)
[2018-03-18] MEDS: FENOFIBRATE 48 MG TAB (TRICOR) PO (10:24)
[2018-03-18] MEDS: SERTRALINE 100 MG TAB PO (10:24)
[2018-03-18] MEDS: buPROPion (WELLBUTRIN SR) 100 MG SR TAB PO ×2 (10:24→21:27)
[2018-03-18] MEDS: SIMVASTATIN 40 MG TAB PO (10:25)
[2018-03-18 12:00] LABS: BEDSIDE GLUCOSE 209 MG/DL (80-115)
[2018-03-18 17:39] LABS: BEDSIDE GLUCOSE 174 MG/DL (80-115)
[2018-03-18 21:12] LABS: BEDSIDE GLUCOSE 260 MG/DL (80-115)
[2018-03-18] MEDS: FLUTICASONE PROP 0.05% NASAL SPRAY 16 GM (FLONASE) (21:28)
[2018-03-19] MEDS: MEROPENEM INJ 1 GM in APPROPRIATE DILUENT 1 EA IV ×3 (01:16→17:10)
[2018-03-19 06:24] LABS: HEMOGLOBIN 11.5 g/dl (12.0-15.5); MEAN CORPUSCULAR HEMOGLOBIN 25.4 pg (27.0-33.0); MEAN CORPUSCULAR HGB CONC 31.1 g/dl (32.0-36.5); MEAN CORPUSCULAR VOLUME 81.7 fl (80.0-96.0); PLATELET COUNT, AUTOMATED 311 10^3/uL (150-450); RED BLOOD COUNT 4.53 10^6/uL (4.00-5.40); WHITE BLOOD COUNT 5.2 10^3/uL (4.0-10.0)
[2018-03-19 06:25] LABS: ADD MANUAL DIFFER YES; DIFF SLIDE NUMBER 31; POS COUNT POS FLAG; POSITIVE MORPH POS FLAG
[2018-03-19 06:42] LABS: ANION GAP 6 MEQ/L (8-16); BLOOD UREA NITROGEN 8 MG/DL (7-18); CALCIUM LEVEL 9.2 MG/DL (8.8-10.2); CARBON DIOXIDE LEVEL 29 MEQ/L (21-32); CHLORIDE LEVEL 106 MEQ/L (98-107); CREATININE FOR GFR 0.44 MG/DL (0.55-1.30); GLOMERULAR FILTRATION RATE > 60.0 (>45); GLUCOSE, FASTING 225 MG/DL (70-100); POTASSIUM SERUM 4.4 MEQ/L (3.5-5.1); SODIUM LEVEL 141 MEQ/L (136-145)
[2018-03-19 06:52] LABS: ANISOCYTOSIS 1+; BASOPHILS 2 % (0-4); LYMPHOCYTES 24 % (16-52); METAMYELOCYTES 1 % (0-0); MONOCYTES 8 % (0-8); MYELOCYTES 3 % (0-0); NEUTROPHILS 62 % (35-75); PLATELET ESTIMATE NORMAL (NORMAL)
[2018-03-19] MEDS: ACAMPROSATE CALCIUM 333 MG TABLET (CAMPRAL) PO ×2 (08:28→20:19)
[2018-03-19] MEDS: SERTRALINE 100 MG TAB PO (08:28)
[2018-03-19] MEDS: HumaLOG INSULIN (NovoLOG) PER UNIT SC ×4 (08:28→21:00)
[2018-03-19] MEDS: buPROPion (WELLBUTRIN SR) 100 MG SR TAB PO ×2 (08:28→20:18)
[2018-03-19] MEDS: FENOFIBRATE 48 MG TAB (TRICOR) PO (08:29)
[2018-03-19] MEDS: SIMVASTATIN 40 MG TAB PO (08:29)
[2018-03-19] MEDS: POTASSIUM CHLORIDE 10 MEQ SR TABLET PO ×2 (08:29→20:19)
[2018-03-19] MEDS: LEVEMIR (INSULIN DETEMIR) 1 UNITS/0.01ML SC (08:38)
[2018-03-19] MEDS: ALBUTEROL SULFATE 2.5 MG/0.5 ML INH NEB SOLN NEB ×2 (12:05→20:00)
[2018-03-19 12:13] LABS: BEDSIDE GLUCOSE 107 MG/DL (80-115)
[2018-03-19 17:14] LABS: BEDSIDE GLUCOSE 141 MG/DL (80-115)
[2018-03-19] MEDS: FLUTICASONE PROP 0.05% NASAL SPRAY 16 GM (FLONASE) (20:19)
[2018-03-19 21:13] LABS: BEDSIDE GLUCOSE 229 MG/DL (80-115)
[2018-03-20] MEDS: MEROPENEM INJ 1 GM in APPROPRIATE DILUENT 1 EA IV ×4 (00:18→23:46)
[2018-03-20 06:42] LABS: BEDSIDE GLUCOSE 206 MG/DL (80-115)
[2018-03-20] MEDS: ALBUTEROL SULFATE 2.5 MG/0.5 ML INH NEB SOLN NEB ×3 (07:55→19:54)
[2018-03-20] MEDS: TIOTROPIUM INHALER/CAPSULE (SPIRIVA) INH (07:55)
[2018-03-20] MEDS: LEVEMIR (INSULIN DETEMIR) 1 UNITS/0.01ML SC (08:33)
[2018-03-20] MEDS: HumaLOG INSULIN (NovoLOG) PER UNIT SC ×4 (08:34→21:00)
[2018-03-20] MEDS: buPROPion (WELLBUTRIN SR) 100 MG SR TAB PO ×2 (08:34→21:28)
[2018-03-20] MEDS: SERTRALINE 100 MG TAB PO (08:34)
[2018-03-20] MEDS: SIMVASTATIN 40 MG TAB PO (08:34)
[2018-03-20] MEDS: LevoFLOXacin IV 750 MG in APPROPRIATE DILUENT 1 EA IV (08:34)
[2018-03-20] MEDS: POTASSIUM CHLORIDE 10 MEQ SR TABLET PO (08:34)
[2018-03-20] MEDS: FENOFIBRATE 48 MG TAB (TRICOR) PO (08:34)
[2018-03-20] MEDS: ACAMPROSATE CALCIUM 333 MG TABLET (CAMPRAL) PO ×2 (08:44→21:28)
[2018-03-20 12:05] LABS: BEDSIDE GLUCOSE 166 MG/DL (80-115)
[2018-03-20 16:41] LABS: BEDSIDE GLUCOSE 108 MG/DL (80-115)
[2018-03-20] MEDS: FLUTICASONE PROP 0.05% NASAL SPRAY 16 GM (FLONASE) (21:28)
[2018-03-20 22:17] LABS: BEDSIDE GLUCOSE 150 MG/DL (80-115)
[2018-03-21 06:17] LABS: BEDSIDE GLUCOSE 148 MG/DL (80-115)
[2018-03-21 06:31] LABS: HEMOGLOBIN 11.5 g/dl (12.0-15.5); MEAN CORPUSCULAR HEMOGLOBIN 25.9 pg (27.0-33.0); MEAN CORPUSCULAR HGB CONC 31.1 g/dl (32.0-36.5); MEAN CORPUSCULAR VOLUME 83.3 fl (80.0-96.0); PLATELET COUNT, AUTOMATED 503 10^3/uL (150-450); RED BLOOD COUNT 4.44 10^6/uL (4.00-5.40); RED CELL DISTRIBUTION WIDTH 16.5 % (11.5-14.5); WHITE BLOOD COUNT 6.1 10^3/uL (4.0-10.0)
[2018-03-21 06:34] LABS: ADD MANUAL DIFFER YES; DIFF SLIDE NUMBER 21; POS COUNT POS FLAG; POSITIVE MORPH POS FLAG
[2018-03-21 06:56] LABS: ANION GAP 4 MEQ/L (8-16); BLOOD UREA NITROGEN 10 MG/DL (7-18); CARBON DIOXIDE LEVEL 34 MEQ/L (21-32); CHLORIDE LEVEL 104 MEQ/L (98-107); CREATININE FOR GFR 0.57 MG/DL (0.55-1.30); GLOMERULAR FILTRATION RATE > 60.0 (>45); GLUCOSE, FASTING 155 MG/DL (70-100); POTASSIUM SERUM 4.4 MEQ/L (3.5-5.1); SODIUM LEVEL 142 MEQ/L (136-145)
[2018-03-21 06:58] LABS: ATYPICAL LYMPH 2 % (0-5); BASOPHILS 1 % (0-4); EOSINOPHILS 1 % (0-5); LYMPHOCYTES 23 % (16-52); MONOCYTES 3 % (0-8); MYELOCYTES 2 % (0-0); NEUTROPHILS 68 % (35-75)
[2018-03-21 07:00] LABS: ANISOCYTOSIS 1+; GIANT PLATELETS 2+; PLATELET ESTIMATE INCREASED (NORMAL)
[2018-03-21 07:01] LABS: STOMATOCYTES 1+
[2018-03-21] MEDS: ALBUTEROL SULFATE 2.5 MG/0.5 ML INH NEB SOLN NEB (07:13)
[2018-03-21] MEDS: TIOTROPIUM INHALER/CAPSULE (SPIRIVA) INH (07:13)
[2018-03-21] MEDS: HumaLOG INSULIN (NovoLOG) PER UNIT SC ×4 (08:41→21:00)
[2018-03-21] MEDS: MEROPENEM INJ 1 GM in APPROPRIATE DILUENT 1 EA IV (08:41)
[2018-03-21] MEDS: LEVEMIR (INSULIN DETEMIR) 1 UNITS/0.01ML SC (08:41)
[2018-03-21] MEDS: LevoFLOXacin IV 750 MG in APPROPRIATE DILUENT 1 EA IV (08:41)
[2018-03-21] MEDS: FENOFIBRATE 48 MG TAB (TRICOR) PO (08:42)
[2018-03-21] MEDS: SERTRALINE 100 MG TAB PO (08:42)
[2018-03-21] MEDS: SIMVASTATIN 40 MG TAB PO (08:42)
[2018-03-21] MEDS: POTASSIUM CHLORIDE 10 MEQ SR TABLET PO (08:42)
[2018-03-21] MEDS: buPROPion (WELLBUTRIN SR) 100 MG SR TAB PO ×2 (08:42→20:18)
[2018-03-21] MEDS: ACAMPROSATE CALCIUM 333 MG TABLET (CAMPRAL) PO ×2 (08:42→20:18)
[2018-03-21 12:33] LABS: BEDSIDE GLUCOSE 66 MG/DL (80-115)
[2018-03-21 17:04] LABS: BEDSIDE GLUCOSE 161 MG/DL (80-115)
[2018-03-21] MEDS: FLUTICASONE PROP 0.05% NASAL SPRAY 16 GM (FLONASE) (20:18)
[2018-03-21 20:31] LABS: BEDSIDE GLUCOSE 144 MG/DL (80-115)
[2018-03-22] MEDS: LevoFLOXacin 750 MG TABLET PO (05:12)
[2018-03-22 06:54] LABS: BEDSIDE GLUCOSE 180 MG/DL (80-115)
[2018-03-22] MEDS: ALBUTEROL SULFATE 2.5 MG/0.5 ML INH NEB SOLN NEB (07:10)
[2018-03-22] MEDS: TIOTROPIUM INHALER/CAPSULE (SPIRIVA) INH (07:10)
[2018-03-22] MEDS: ACAMPROSATE CALCIUM 333 MG TABLET (CAMPRAL) PO (08:34)
[2018-03-22] MEDS: HumaLOG INSULIN (NovoLOG) PER UNIT SC ×2 (08:34→12:11)
[2018-03-22] MEDS: LEVEMIR (INSULIN DETEMIR) 1 UNITS/0.01ML SC (08:35)
[2018-03-22] MEDS: buPROPion (WELLBUTRIN SR) 100 MG SR TAB PO (08:35)
[2018-03-22] MEDS: FENOFIBRATE 48 MG TAB (TRICOR) PO (08:35)
[2018-03-22] MEDS: SERTRALINE 100 MG TAB PO (08:35)
[2018-03-22] MEDS: SIMVASTATIN 40 MG TAB PO (08:35)
[2018-03-22] MEDS: POTASSIUM CHLORIDE 10 MEQ SR TABLET PO (08:35)
[2018-03-22] MEDS: ACETAMINOPHEN TAB 650MG DOSE (2X325MG) PO (10:15)
[2018-03-22 11:56] LABS: BEDSIDE GLUCOSE 78 MG/DL (80-115)
== END 2018-03-22 15:40 | disposition home or self-care (01) | DRG 699 ==
LOC: M ED INP 21:26 → M ED 21:25 → M MS5PR 03-15 04:00
PROC: 0TP98DZ Removal of Intraluminal Device from Ureter, Via Natural or Artificial Opening Endoscopic (ICD-10-PCS; principal; 2018-03-15 07:30)
PROC: 0T768DZ Dilation of Right Ureter with Intraluminal Device, Via Natural or Artificial Opening Endoscopic (ICD-10-PCS; 2018-03-15 07:30)
DX: T83.122A Displacement of indwelling ureteral stent, initial encounter (principal); N10 Acute pyelonephritis; R78.81 Bacteremia; N13.1 Hydronephrosis with ureteral stricture, not elsewhere classified; J44.9 Chronic obstructive pulmonary disease, unspecified; N20.0 Calculus of kidney; E11.9 Type 2 diabetes mellitus without complications; B95.2 Enterococcus as the cause of diseases classified elsewhere; B96.5 Pseudomonas (aeruginosa) (mallei) (pseudomallei) as the cause of diseases classified elsewhere; E78.5 Hyperlipidemia, unspecified; G43.909 Migraine, unspecified, not intractable, without status migrainosus; G47.33 Obstructive sleep apnea (adult) (pediatric); Z87.820 Personal history of traumatic brain injury; Z98.51 Tubal ligation status; Z87.442 Personal history of urinary calculi; Z87.891 Personal history of nicotine dependence; Z79.84 Long term (current) use of oral hypoglycemic drugs; Z79.899 Other long term (current) drug therapy; Z88.0 Allergy status to penicillin; Z96.0 Presence of urogenital implants; Z99.89 Dependence on other enabling machines and devices

== ENCOUNTER → 2018-04-05 | Outpatient (CLI) | payer MEDICARE, MEDICAID ==
[2018-04-05 06:56] LABS: ALBUMIN 3.5 GM/DL (3.2-5.2); ALKALINE PHOSPHATASE 55 U/L (45-117); ALT/SGPT 18 U/L (12-78); ANION GAP 6 MEQ/L (8-16); AST/SGOT 13 U/L (7-37); BILIRUBIN,TOTAL 0.1 MG/DL (0.2-1.0); BLOOD UREA NITROGEN 22 MG/DL (7-18); CARBON DIOXIDE LEVEL 30 MEQ/L (21-32); CHLORIDE LEVEL 112 MEQ/L (98-107); CREATININE FOR GFR 0.45 MG/DL (0.55-1.30); GLOMERULAR FILTRATION RATE > 60.0 (>45); GLUCOSE, FASTING 169 MG/DL (70-100); POTASSIUM SERUM 3.7 MEQ/L (3.5-5.1); SODIUM LEVEL 148 MEQ/L (136-145)
== END ==
LOC: M LAB 06:06
DX: E11.69 Type 2 diabetes mellitus with other specified complication (principal)
CPT/HCPCS: 80053

== ENCOUNTER → 2018-04-19 | Outpatient (REF) | payer MEDICARE, MEDICAID | LOC: M LAB REF 17:21 | DX: E85.9 Amyloidosis, unspecified (principal) | CPT/HCPCS: 88305 ==

== ENCOUNTER → 2018-06-03 | Outpatient (CLI) | payer MEDICARE, MEDICAID | LOC: M RAD 12:13 | DX: N13.39 Other hydronephrosis (principal); N20.2 Calculus of kidney with calculus of ureter; Z96.0 Presence of urogenital implants | CPT/HCPCS: 76775 ==

== ENCOUNTER → 2018-06-10 | Outpatient (CLI) | payer MEDICARE, MEDICAID ==
[~2018-06-10] MED LIST changes: -/FENO48TA PO; -/QUET10TA PO; -CALCTAB52 PO; -CAMP333T PO; -CEFAD50CA PO; -CETI10TA PO; -DEBR6.5S4 AD; -FARX1TAB3 PO; -FIBE625T4 PO; -FLON1SPR; -FOSA70TA PO; +GASTROGRAFIN SOLUTION 30ML (Q9963) As Ordered; -IBUP200T2 PO; -INCR1INH IN; +ISOVUE-370 76% 100ML VIAL (Q9967) As Ordered; -LAMI1TAB9 PO; -MACR100C43 PO; -MAGN200T3 PO; -METF500T PO; -MULTLIQ7 PO; -NEXI40GR PO; -PAXI40TA2 PO; -PERC7.5T12 PO; -SPIRIVA INH; -TRAD5TAB PO; -VITA100037 PO; -VITMTA PO; -WELLTAB38 PO; -ZOCO40TA PO; -ZOLO100T PO
== END ==
LOC: M RAD 11:16
DX: R10.9 Unspecified abdominal pain (principal)
CPT/HCPCS: Q9963

== ENCOUNTER → 2018-06-17 | Outpatient (REF) | payer MEDICARE, MEDICAID | LOC: M SMT 16:59 | DX: Z01.818 Encounter for other preprocedural examination (principal); N13.5 Crossing vessel and stricture of ureter without hydronephrosis | CPT/HCPCS: 87186 ==

== ENCOUNTER → 2018-06-18 | Outpatient (CLI) | payer MEDICARE, MEDICAID ==
[2018-06-18 10:35] LABS: HEMATOCRIT 35.2 % (36.0-47.0); HEMOGLOBIN 10.5 g/dl (12.0-15.5); MEAN CORPUSCULAR HEMOGLOBIN 25.2 pg (27.0-33.0); MEAN CORPUSCULAR HGB CONC 29.8 g/dl (32.0-36.5); MEAN CORPUSCULAR VOLUME 84.6 fl (80.0-96.0); PLATELET COUNT, AUTOMATED 302 10^3/uL (150-450); RED BLOOD COUNT 4.16 10^6/uL (4.00-5.40); WHITE BLOOD COUNT 3.4 10^3/uL (4.0-10.0)
[2018-06-18 11:07] LABS: ANION GAP 5 MEQ/L (8-16); BLOOD UREA NITROGEN 17 MG/DL (7-18); CALCIUM LEVEL 9.3 MG/DL (8.8-10.2); CARBON DIOXIDE LEVEL 35 MEQ/L (21-32); CHLORIDE LEVEL 104 MEQ/L (98-107); CREATININE FOR GFR 0.57 MG/DL (0.55-1.30); GLOMERULAR FILTRATION RATE > 60.0 (>45); GLUCOSE, FASTING 119 MG/DL (70-100); POTASSIUM SERUM 3.8 MEQ/L (3.5-5.1); SODIUM LEVEL 144 MEQ/L (136-145)
== END ==
LOC: M LAB 10:02
DX: Z01.818 Encounter for other preprocedural examination (principal); N13.5 Crossing vessel and stricture of ureter without hydronephrosis
CPT/HCPCS: 80048

== ENCOUNTER 2018-06-23 11:17 | Day surgery (SDC) | payer MEDICARE, MEDICAID ==
[2018-06-23] MEDS: LR 1,000 ML IV (12:00)
[2018-06-23 12:02] LABS: BEDSIDE GLUCOSE 143 MG/DL (80-115)
[2018-06-23] MEDS ORDERED: KETOROLAC 60 MG/2 ML VIAL (J1885) As Ordered (12:33)
[2018-06-23] MEDS ORDERED: dexameTHASONE 4 MG/ML 1ML VIAL (J1100) As Ordered (12:33)
[2018-06-23] MEDS ORDERED: LIDOCAINE 2% INJ 100 MG/5 ML SDV (FOR ANES.) As Ordered (12:33)
[2018-06-23] MEDS ORDERED: ONDANSETRON 4MG/2ML VIAL (J2405) As Ordered ×2 (12:33→15:12)
[2018-06-23] MEDS ORDERED: PROPOFOL 200 MG/20 ML VIAL As Ordered ×2 (12:33)
[2018-06-23] MEDS ORDERED: fentaNYL 100 MCG/2 ML INJECTION (J3010) As Ordered (12:34)
[2018-06-23] MEDS ORDERED: MIDAZOLAM INJ 2 MG/2 ML VIAL (J2250) As Ordered (12:34)
[2018-06-23] MEDS ORDERED: SUGAMMADEX SODIUM 500 MG/5 ML VIAL (BRIDION) As Ordered (12:36)
[2018-06-23] MEDS: LevoFLOXacin IV 500 MG in APPROPRIATE DILUENT 1 EA IV (13:07)
[2018-06-23] MEDS: CONRAY-60 60% 50ML VIAL (Q9961) As Ordered (13:44)
[2018-06-23] MEDS: LIDOCAINE 2% 5ML JELLY UROJET As Ordered (13:45)
[2018-06-23] MEDS ORDERED: ACETAMINOPHEN TAB 650MG DOSE (2X325MG) As Ordered (14:45)
[2018-06-23] MEDS: ACETAMINOPHEN TAB 650MG DOSE (2X325MG) PO (14:45)
[2018-06-23] MEDS: ONDANSETRON 4MG/2ML VIAL (J2405) IV (15:15)
== END 2018-06-23 15:56 | disposition home or self-care (01) ==
LOC: M SDC 15:56
DX: N13.5 Crossing vessel and stricture of ureter without hydronephrosis (principal); I10 Essential (primary) hypertension; E78.00 Pure hypercholesterolemia, unspecified; E10.9 Type 1 diabetes mellitus without complications; K57.30 Diverticulosis of large intestine without perforation or abscess without bleeding; K21.9 Gastro-esophageal reflux disease without esophagitis; M12.9 Arthropathy, unspecified; M54.9 Dorsalgia, unspecified; M85.80 Other specified disorders of bone density and structure, unspecified site; F41.9 Anxiety disorder, unspecified; F32.9 Major depressive disorder, single episode, unspecified; G43.909 Migraine, unspecified, not intractable, without status migrainosus; F70 Mild intellectual disabilities; J44.9 Chronic obstructive pulmonary disease, unspecified; G47.33 Obstructive sleep apnea (adult) (pediatric); N13.30 Unspecified hydronephrosis; Z88.4 Allergy status to anesthetic agent; Z79.899 Other long term (current) drug therapy; Z79.84 Long term (current) use of oral hypoglycemic drugs; Z86.59 Personal history of other mental and behavioral disorders; Z98.51 Tubal ligation status; Z87.891 Personal history of nicotine dependence
CPT/HCPCS: 52332

== ENCOUNTER → 2018-08-16 | Outpatient (CLI) | payer MEDICARE, MEDICAID ==
[2018-08-16 13:11] LABS: BASO % 0.5 % (0.0-1.0); EOS % 1.1 % (0.0-3.0); HEMATOCRIT 37.7 % (36.0-47.0); HEMOGLOBIN 11.2 g/dl (12.0-15.5); IMMATURE GRANULOCYTE % 0.3 % (0-3.0); LYMPH # 0.8 10^3/uL (1.5-4.5); LYMPH % 21.4 % (24.0-44.0); MEAN CORPUSCULAR HEMOGLOBIN 25.5 pg (27.0-33.0); MEAN CORPUSCULAR HGB CONC 29.7 g/dl (32.0-36.5); MEAN CORPUSCULAR VOLUME 85.7 fl (80.0-96.0); MONO # 0.3 10^3/uL (0.0-0.8); MONO % 7.8 % (0.0-5.0); NEUTROPHILS # 2.6 10^3/uL (1.8-7.7); NEUTROPHILS % 68.9 % (36.0-66.0); PLATELET COUNT, AUTOMATED 302 10^3/uL (150-450); RED CELL DISTRIBUTION WIDTH 20.7 % (11.5-14.5); WHITE BLOOD COUNT 3.7 10^3/uL (4.0-10.0)
[2018-08-16 14:47] LABS: ALBUMIN/GLOBULIN RATIO 1.38 (1.00-1.93); ALKALINE PHOSPHATASE 30 U/L (45-117); ALT/SGPT 29 U/L (12-78); ANION GAP 14 MEQ/L (8-16); AST/SGOT 18 U/L (7-37); BILIRUBIN,TOTAL 0.1 MG/DL (0.2-1.0); BLOOD UREA NITROGEN 16 MG/DL (7-18); CALCIUM LEVEL 10.2 MG/DL (8.8-10.2); CARBON DIOXIDE LEVEL 27 MEQ/L (21-32); CHLORIDE LEVEL 104 MEQ/L (98-107); CHOLESTEROL LEVEL 204 MG/DL (<200); CHOLESTEROL RISK RATIO 3.138 (<5); GLOMERULAR FILTRATION RATE > 60.0 (>45); GLUCOSE, FASTING 173 MG/DL (70-100); HDL CHOLESTEROL 65 MG/DL (>40); LDL CHOLESTEROL 101 MG/DL (<100); NON-HDL-C 139 MG/DL; POTASSIUM SERUM 3.7 MEQ/L (3.5-5.1); PROLACTIN 5.2 NG/ML; SODIUM LEVEL 145 MEQ/L (136-145); THYROID STIMULATING HORMONE 0.692 uIU/ML (0.358-3.740); TOTAL PROTEIN 6.9 GM/DL (6.4-8.2); TRIGLYCERIDES LEVEL 189 MG/DL (<150)
[2018-08-16 15:55] LABS: ESTIMATED AVERAGE GLUCOSE 146 MG/DL (60-110); HEMOGLOBIN A1c 6.7 %
== END ==
LOC: M WUC 08:47
DX: F70 Mild intellectual disabilities (principal); D64.9 Anemia, unspecified; D72.819 Decreased white blood cell count, unspecified
CPT/HCPCS: 84146

== ENCOUNTER → 2018-08-16 | Outpatient (REF) | payer MEDICARE, MEDICAID ==
[2018-08-16 15:21] LABS: FERRITIN 16 NG/ML (8-252)
== END ==
LOC: M LAB REF 14:10
DX: D64.9 Anemia, unspecified (principal); D72.819 Decreased white blood cell count, unspecified

== ENCOUNTER → 2018-09-28 | Outpatient (CLI) | payer MEDICARE, MEDICAID ==
[2018-09-28 10:06] LABS: HEMATOCRIT 41.1 % (36.0-47.0); HEMOGLOBIN 13.1 g/dl (12.0-15.5); MEAN CORPUSCULAR HEMOGLOBIN 28.9 pg (27.0-33.0); MEAN CORPUSCULAR HGB CONC 31.9 g/dl (32.0-36.5); MEAN CORPUSCULAR VOLUME 90.5 fl (80.0-96.0); PLATELET COUNT, AUTOMATED 223 10^3/uL (150-450); RED BLOOD COUNT 4.54 10^6/uL (4.00-5.40); RED CELL DISTRIBUTION WIDTH 21.7 % (11.5-14.5); WHITE BLOOD COUNT 2.9 10^3/uL (4.0-10.0)
[2018-09-28 10:21] LABS: ANION GAP 7 MEQ/L (8-16); BLOOD UREA NITROGEN 24 MG/DL (7-18); CALCIUM LEVEL 9.5 MG/DL (8.8-10.2); CARBON DIOXIDE LEVEL 31 MEQ/L (21-32); CHLORIDE LEVEL 108 MEQ/L (98-107); CREATININE FOR GFR 0.57 MG/DL (0.55-1.30); GLOMERULAR FILTRATION RATE > 60.0 (>45); GLUCOSE, FASTING 130 MG/DL (70-100); SODIUM LEVEL 146 MEQ/L (136-145)
== END ==
LOC: M LAB 08:44
DX: N13.5 Crossing vessel and stricture of ureter without hydronephrosis (principal)
CPT/HCPCS: 71046

== ENCOUNTER 2018-10-03 07:35 | Day surgery (SDC) | payer MEDICARE, MEDICAID ==
[~2018-10-03 07:35] MED LIST changes: -GASTROGRAFIN SOLUTION 30ML (Q9963) As Ordered; -ISOVUE-370 76% 100ML VIAL (Q9967) As Ordered; +LIDOCAINE 1% MDV 20ML VIAL SQ
[2018-10-03 08:24] LABS: BEDSIDE GLUCOSE 162 MG/DL (80-115)
[2018-10-03] MEDS ORDERED: LR 1,000 ML IV ×2 (08:30)
[2018-10-03] MEDS ORDERED: PROPOFOL 200 MG/20 ML VIAL As Ordered ×2 (08:47)
[2018-10-03] MEDS ORDERED: fentaNYL 100 MCG/2 ML INJECTION (J3010) As Ordered ×2 (08:47)
[2018-10-03] MEDS ORDERED: LIDOCAINE 2% INJ 100 MG/5 ML SDV (FOR ANES.) As Ordered ×2 (08:47)
[2018-10-03] MEDS ORDERED: MIDAZOLAM INJ 2 MG/2 ML VIAL (J2250) As Ordered ×2 (08:48)
[2018-10-03] MEDS: LIDOCAINE 2% 5ML JELLY UROJET As Ordered ×2 (10:30)
[2018-10-03] MEDS: CONRAY-60 60% 50ML VIAL (Q9961) As Ordered ×2 (10:30)
== END 2018-10-03 11:53 | disposition home or self-care (01) ==
LOC: M SDC 07:35
DX: N13.30 Unspecified hydronephrosis (principal); I10 Essential (primary) hypertension; E11.59 Type 2 diabetes mellitus with other circulatory complications; R94.31 Abnormal electrocardiogram [ECG] [EKG]; E78.2 Mixed hyperlipidemia; K57.30 Diverticulosis of large intestine without perforation or abscess without bleeding; K21.9 Gastro-esophageal reflux disease without esophagitis; M12.9 Arthropathy, unspecified; M85.80 Other specified disorders of bone density and structure, unspecified site; J44.9 Chronic obstructive pulmonary disease, unspecified; F41.9 Anxiety disorder, unspecified; F32.9 Major depressive disorder, single episode, unspecified; F70 Mild intellectual disabilities; R06.83 Snoring; G47.33 Obstructive sleep apnea (adult) (pediatric); G43.001 Migraine without aura, not intractable, with status migrainosus; F17.200 Nicotine dependence, unspecified, uncomplicated; E55.9 Vitamin D deficiency, unspecified; Z88.4 Allergy status to anesthetic agent; Z79.899 Other long term (current) drug therapy; Z79.84 Long term (current) use of oral hypoglycemic drugs; Z86.59 Personal history of other mental and behavioral disorders; Z87.891 Personal history of nicotine dependence; Z98.51 Tubal ligation status
CPT/HCPCS: 52332

== ENCOUNTER → 2018-10-20 | Outpatient (CLI) | payer MEDICARE, MEDICAID ==
[~2018-10-20] MED LIST changes: +FUROSEMIDE 20 MG/2 ML VIAL (J1940) As Ordered; -LIDOCAINE 1% MDV 20ML VIAL SQ
== END ==
LOC: M RAD 11:55
DX: N13.5 Crossing vessel and stricture of ureter without hydronephrosis (principal); N13.30 Unspecified hydronephrosis
CPT/HCPCS: J1940

== ENCOUNTER → 2018-11-17 | Outpatient (CLI) | payer MEDICARE, MEDICAID ==
[~2018-11-17] MED LIST changes: +/FENO48TA PO; +/QUET10TA PO; +ACAM0.05 PO; +ACET1TAB55 PO; +AMMO12CR4 TOP; +BUPR100T3 PO; +BYDU2INJ7 SC; +CALC500T49 PO; +CALCTAB52 PO; +CAMP333T PO; +CEFAD50CA PO; +CETI10TA PO; +DEBR6.5S4; +DEBR6.5S4 AD; +DEBR6.5S4 OTIC; +FARX1TAB3 PO; +FENO48TA2 PO; +FERR324T2 PO; +FERR325T3 PO; +FIBE625T PO; +FIBE625T4 PO; +FLON1SPR; +FOSA70TA PO; -FUROSEMIDE 20 MG/2 ML VIAL (J1940) As Ordered; +IBUP200T2 PO; +INCR1INH IN; +LAMI1TAB9 PO; +LEVA750T7 PO; +MACR100C43 PO; +MAGN200T3 PO; +MAGN400T5 PO; +METF10004 PO; +METF500T PO; +MULTLIQ7 PO; +NEXI40CA PO; +NEXI40GR PO; +PAXI40TA2 PO; +PERC5TAB12 PO; +PERC7.5T12 PO; +QUET5TAB PO; +SIMV40TA2 PO; +SPIRIVA INH; +SUMA25TA3 PO; +TIOT18INH INH; +TRAD5TAB PO; +VITA100037 PO; +VITA100067 PO; +VITMTA PO; +WELLTAB38 PO; +ZOCO40TA PO; +ZOLO100T PO; +ZYRT10CA5 PO
--- NOTE | 2018-11-17 10:41 | REPMRS ---
Patient History The patient states she had a clinical breast exam in 07/2018. Patient is postmenopausal. No known family history of cancer. No Hormone Replacement Therapy Digital Woman Screen Mammo: November 17, 2018 - Exam #: [id number] Bilateral CC and MLO view(s) were taken. Technologist: Jessica Saunders, Technologist Prior study comparison: November 03, 2017, digital woman screen mammo performed at [facility]. August 14, 2016, digital woman screen mammo performed at [facility]. August 14, 2015, digital woman screen mammo performed at [facility] to [facility]. FINDINGS: The breast tissue is extremely dense which could obscure a lesion on mammography. There is an extremely dense symmetrical pattern of residual fibroglandular tissue. There has been no change in the appearance of the mammogram from the previous studies. There is no interval development of dominant mass, archetectural distortion, or microcalcific cluster suggestive of malignancy. 3-D tomosynthesis shows no additional findings. Assessment: BI-RADS/ACR category 1 mammogram. Negative. Recommendation Routine screening mammogram of both breasts in 1 year (for women over age 40). This patient's Lifetime Breast Cancer RIsk is estimated at 9.0 %. This mammogram was interpreted with the aid of an FDA-approved computer-aided dectection system. Electronically Signed By: Baljinder Chaparro MD 11/17/18 104
== END ==
LOC: M WHC 09:26
PROVIDERS: ATTEND Nurse Practitioner Family
DX: Z12.31 Encounter for screening mammogram for malignant neoplasm of breast (principal); N60.31 Fibrosclerosis of right breast; N60.32 Fibrosclerosis of left breast

== ENCOUNTER → 2018-11-18 | Day surgery (SDC) | payer MEDICARE, MEDICAID ==
[~2018-11-18] VITALS: Ht 152.4 cm; Wt 51.7 kg
[~2018-11-18] MED LIST changes: +LIDOCAINE 2% MDV 20 ML VIAL As Ordered ONE; +NS 1,000 ML IV ONE; +PROPOFOL 200 MG/20 ML VIAL As Ordered ONE
== END | disposition home or self-care (01) ==
LOC: M OPP 09:51
PROVIDERS: ATTEND Internal Medicine Gastroenterology
DX: Z53.20 Procedure and treatment not carried out because of patient's decision for unspecified reasons (principal)

== ENCOUNTER 2018-12-26 07:17 | Day surgery (SDC) | payer MEDICARE, MEDICAID ==
[~2018-12-26] VITALS: Ht 154.9 cm; Wt 51.3 kg
[~2018-12-26 07:17] MED LIST changes: +LIDOCAINE 2% INJ 100 MG/5 ML SDV (FOR ANES.) As Ordered ONE; -LIDOCAINE 2% MDV 20 ML VIAL As Ordered ONE
--- NOTE | 2018-12-26 09:31 | ROOR ---
Patient Name: Lucy Yusuf Procedure Date: 12/26/2018 8:52 AM Date of : 1955 Age: 63 Room: [facility] Gender: Female Note Status: Finalized Procedure: Upper GI endoscopy Indications: Iron deficiency anemia Providers: Brenden Ricardo MD Referring MD: REG ROBB Requesting Provider: Medicines: Monitored Anesthesia Care Complications: No immediate complications. Procedure: Pre-Anesthesia Assessment: - Prior to the procedure, a History and Physical was performed, and patient medications and allergies were reviewed. The patient is competent. The risks and benefits of the procedure and the sedation options and risks were discussed with the patient. All questions were answered and informed consent was obtained. Patient identification and proposed procedure were verified by the physician, the nurse and the anesthesiologist in the procedure room. Mental Status Examination: alert and oriented. Airway Examination: normal oropharyngeal airway and neck mobility. Respiratory Examination: clear to auscultation. CV Examination: normal. Prophylactic Antibiotics: The patient does not require prophylactic antibiotics. Prior Anticoagulants: The patient has taken no previous anticoagulant or antiplatelet agents. ASA Grade Assessment: III - A patient with severe systemic disease. After reviewing the risks and benefits, the patient was deemed in satisfactory condition to undergo the procedure. The anesthesia plan was to use monitored anesthesia care (MAC). Immediately prior to administration of medications, the patient was re-assessed for adequacy to receive sedatives. The heart rate, respiratory rate, oxygen saturations, blood pressure, adequacy of pulmonary ventilation, and response to care were monitored throughout the procedure. The physical status of the patient was re-assessed after the procedure. The Endoscope was introduced through the mouth, and advanced to the second part of duodenum. The upper GI endoscopy was accomplished without difficulty. The patient tolerated the procedure well. Findings: No gross lesions were noted in the entire esophagus. The Z-line was irregular and was found in the distal esophagus. Diffuse moderate inflammation characterized by congestion (edema), erythema and granularity was found in the gastric fundus, in the gastric body and in the gastric antrum. One 12 mm mucosal papule (nodule) with no stigmata of recent bleeding was found in the gastric antrum. Biopsies were taken with a cold forceps for histology. Verification of patient identification for the specimen was done by the physician and nurse using the patient's name, date and medical record number. Estimated blood loss was minimal. The duodenal bulb and second portion of the duodenum were normal. Biopsies for histology were taken with a cold forceps for evaluation of celiac disease. Impression: - No gross lesions in esophagus. - Z-line irregular, in the distal esophagus. - Gastritis. - One mucosal papule (nodule) found in the stomach. Biopsied. - Normal duodenal bulb and second portion of the duodenum. Biopsied. Recommendation: - Patient has a contact number available for emergencies. The signs and symptoms of potential delayed complications were discussed with the patient. Return to normal activities tomorrow. Written discharge instructions were provided to the patient. - Resume previous diet. - Continue present medications. - Await pathology results. - Use Protonix (pantoprazole) 40 mg PO daily for 8 weeks. - Based on the biopsy results you will receive a phone call from GI clinic in 2-3 weeks to review the pathology results AND/OR your results will be faxed to your Primary care physician. - Return to GI clinic in [facility] (address [address], [address], [place] [address]) in 4 -- 6 weeks. Please call GI clinic @ [phone] for apppointment date and time. - Return to primary care physician. Brenden Ricardo MD Brenden Ricardo MD 12/26/2018 9:30:47 AM This report has been signed electronically. Number of Addenda: 0 Note Initiated On: 12/26/2018 8:52 AM Estimated Blood Loss: Estimated blood loss was minimal.
--- NOTE | 2018-12-26 09:37 | ROOR ---
Patient Name: Lucy Yusuf Procedure Date: 12/26/2018 8:53 AM Date of : 1955 Age: 63 Room: [facility] Gender: Female Note Status: Finalized Procedure: Colonoscopy Indications: Iron deficiency anemia Providers: Brenden Ricardo MD Referring MD: REG ROBB Requesting Provider: Medicines: Monitored Anesthesia Care Complications: No immediate complications. Procedure: Pre-Anesthesia Assessment: - Prior to the procedure, a History and Physical was performed, and patient medications and allergies were reviewed. The patient is competent. The risks and benefits of the procedure and the sedation options and risks were discussed with the patient. All questions were answered and informed consent was obtained. Patient identification and proposed procedure were verified by the physician, the nurse and the anesthesiologist in the procedure room. Mental Status Examination: alert and oriented. Airway Examination: normal oropharyngeal airway and neck mobility. Respiratory Examination: clear to auscultation. CV Examination: normal. Prophylactic Antibiotics: The patient does not require prophylactic antibiotics. Prior Anticoagulants: The patient has taken no previous anticoagulant or antiplatelet agents. ASA Grade Assessment: III - A patient with severe systemic disease. After reviewing the risks and benefits, the patient was deemed in satisfactory condition to undergo the procedure. The anesthesia plan was to use monitored anesthesia care (MAC). Immediately prior to administration of medications, the patient was re-assessed for adequacy to receive sedatives. The heart rate, respiratory rate, oxygen saturations, blood pressure, adequacy of pulmonary ventilation, and response to care were monitored throughout the procedure. The physical status of the patient was re-assessed after the procedure. The Colonoscope was introduced through the anus with the intention of advancing to the cecum. The scope was advanced to the descending colon before the procedure was aborted. Medications were given. The colonoscopy was performed without difficulty. The patient tolerated the procedure well. The quality of the bowel preparation was poor. No anatomical landmarks were photographed. Scope insertion time was 2 minutes. Scope withdrawal time was 6 minutes. The total duration of the procedure was 8 minutes. Findings: The perianal and digital rectal examinations were normal. A large amount of semi-liquid semi-solid stool was found from rectum to descending colon, interfering with visualization. Lavage of the area was performed using a large amount of sterile water, resulting in incomplete clearance with continued poor visualization. There is no endoscopic evidence of mass or stricture from rectum to sigmoid colon. Impression: - Preparation of the colon was poor. - Stool from rectum to descending colon. - No specimens collected. Recommendation: - Patient has a contact number available for emergencies. The signs and symptoms of potential delayed complications were discussed with the patient. Return to normal activities tomorrow. Written discharge instructions were provided to the patient. - Resume previous diet. - Continue present medications. - Perform an air contrast barium enema at appointment to be scheduled. - Repeat colonoscopy is not recommended at this time as patient is unable to do bowel preparation after multiple attempts. - Return to GI clinic in [facility] (address [address], [address], [place], [facility]) in 4 -- 6 weeks. Please call GI clinic @ [phone] for apppointment date and time. - Return to primary care physician. Brenden Ricardo MD Brenden Ricardo MD 12/26/2018 9:37:20 AM This report has been signed electronically. Number of Addenda: 0 Note Initiated On: 12/26/2018 8:53 AM Estimated Blood Loss: Estimated blood loss: none.
[2018-12-26 10:17] VITALS: BP 151/81
[2019-01-02] MEDS ORDERED: FERR325T3 PO (15:35)
== END 2018-12-26 10:19 | disposition home or self-care (01) ==
LOC: M OPP 07:17
PROVIDERS: ATTEND Internal Medicine Gastroenterology
DX: D50.9 Iron deficiency anemia, unspecified (principal); K22.8 Other specified diseases of esophagus; K29.70 Gastritis, unspecified, without bleeding; K31.89 Other diseases of stomach and duodenum; K21.9 Gastro-esophageal reflux disease without esophagitis; G47.33 Obstructive sleep apnea (adult) (pediatric); J44.9 Chronic obstructive pulmonary disease, unspecified; Z88.8 Allergy status to other drugs, medicaments and biological substances; Z79.899 Other long term (current) drug therapy

== ENCOUNTER → 2019-01-11 | Outpatient (CLI) | payer MEDICARE, MEDICAID ==
[~2019-01-11] MED LIST changes: -LIDOCAINE 2% INJ 100 MG/5 ML SDV (FOR ANES.) As Ordered ONE; -NS 1,000 ML IV ONE; -PROPOFOL 200 MG/20 ML VIAL As Ordered ONE; +SENN8.6T54 PO
[2019-01-11 06:45] LABS: HEMATOCRIT 44.9 % (36.0-47.0); HEMOGLOBIN 14.7 g/dl (12.0-15.5); MEAN CORPUSCULAR HEMOGLOBIN 31.7 pg (27.0-33.0); MEAN CORPUSCULAR HGB CONC 32.7 g/dl (32.0-36.5); MEAN CORPUSCULAR VOLUME 96.8 fl (80.0-96.0); PLATELET COUNT, AUTOMATED 264 10^3/uL (150-450); RED BLOOD COUNT 4.64 10^6/uL (4.00-5.40); WHITE BLOOD COUNT 4.1 10^3/uL (4.0-10.0)
[2019-01-11 07:22] LABS: BLOOD UREA NITROGEN 15 MG/DL (7-18); CALCIUM LEVEL 10.3 MG/DL (8.8-10.2); CARBON DIOXIDE LEVEL 32 MEQ/L (21-32); CHLORIDE LEVEL 104 MEQ/L (98-107); CREATININE FOR GFR 0.67 MG/DL (0.55-1.30); GLOMERULAR FILTRATION RATE > 60.0 (>45); GLUCOSE, FASTING 150 MG/DL (70-100); POTASSIUM SERUM 4.1 MEQ/L (3.5-5.1); SODIUM LEVEL 142 MEQ/L (136-145)
--- NOTE | 2019-01-11 09:32 | REP ---
Chest two views HISTORY: Ureteral stricture Comparison: 09/28/2018 Linear density is present in the left lower lobe consistent with scar. The right lung is clear. The heart is normal in size. The pulmonary vasculature is normal in appearance. The bony structure is intact. IMPRESSION: No acute disease. Electronically Signed by Win Sexton MD 01/11/2019 09:24 A
--- NOTE | 2019-01-11 22:26 | ECGEPIP ---
Stationary ECG Study [facility] Test Date: 2019-01-11 Pat Name: JOHANNA WILSON Department: Room: - Gender: F Biologist: [facility] : 1955 Requested By: FOREST Blackburn Order Number: [id number] Reading MD: Billy Hartley Measurements Intervals [place] Rate: 62 P: 65 [place]: 185 QRS: 34 QRSD: 116 T: 86 QT: 419 QTc: 428 Interpretive Statements SINUS RHYTHM INDETERMINATE AXIS MODERATE INTRAVENTRICULAR CONDUCTION DELAY S1-S2-S3 pattern, consider lung disease. Electronically Signed On 01-11-2019 22:26:38 EST by Billy Hartley
== END ==
LOC: M LAB 06:17
PROVIDERS: ATTEND Urology
DX: Z01.818 Encounter for other preprocedural examination (principal); N13.5 Crossing vessel and stricture of ureter without hydronephrosis

== ENCOUNTER 2019-01-20 09:49 | Day surgery (SDC) | payer MEDICARE, MEDICAID ==
[~2019-01-20] VITALS: Ht 154.9 cm; Wt 48.7 kg
[~2019-01-20 09:49] MED LIST changes: +LIDOCAINE 1% MDV 20ML VIAL SQ PRN; +LR 1,000 ML IV ONE
[2019-01-20] MEDS ORDERED: ONDANSETRON 4MG/2ML VIAL (J2405) As Ordered ONE (11:18)
[2019-01-20] MEDS ORDERED: MIDAZOLAM INJ 2 MG/2 ML VIAL (J2250) As Ordered ONE (11:18)
[2019-01-20] MEDS ORDERED: fentaNYL 100 MCG/2 ML INJECTION (J3010) As Ordered ONE (11:18)
[2019-01-20] MEDS ORDERED: PROPOFOL 200 MG/20 ML VIAL As Ordered ONE (11:18)
[2019-01-20] MEDS ORDERED: LIDOCAINE 2% INJ 100 MG/5 ML SDV (FOR ANES.) As Ordered ONE (11:18)
[2019-01-20] MEDS ORDERED: CONRAY-60 60% 50ML VIAL (Q9961) As Ordered ONE (15:06)
[2019-01-20] MEDS ORDERED: LIDOCAINE 2% 5ML JELLY UROJET As Ordered ONE (15:22)
--- NOTE | 2019-01-20 16:46 | REP ---
Retrograde pyelogram: Two views. History: Ureteral stricture. 57 seconds of fluoroscopy time is reported. Findings: A sequence of two last image hold fluoroscopic spot radiographs of the abdomen document double pigtail ureteral stent placement on the right side. Electronically Signed by Javi Chaparro MD 01/20/2019 05:06 P
[2019-01-20 16:55] VITALS: BP 153/91
--- NOTE | 2019-01-20 22:31 | RO ---
DATE OF PROCEDURE: 01/20/2019 PREPROCEDURE DIAGNOSIS: Right ureteral stricture. POSTPROCEDURE DIAGNOSIS: Right ureteral stricture. PROCEDURE: Cystoscopy, right ureteroscopy, right ureteral stent exchange, right retrograde pyelogram with intraoperative interpretation of images. SURGEON: Dr. Marcelino Salas COMMUNITY ACTION WORKER: None. ANESTHESIA: Monitored anesthesia care (MAC). OPERATIVE INDICATIONS: This is a 63-year-old female with a history of a right ureteral stricture. It has been managed with chronic ureteral stenting. She was brought to the operating room today for routine stent exchange. DESCRIPTION OF PROCEDURE: The patient was brought to the operating room and MAC anesthesia was administered. Prophylactic antibiotics were infused. She was then placed in the dorsal lithotomy position and prepped and draped in the usual sterile fashion. At this point, a rigid cystoscope was inserted into the urethral meatus and advanced to the bladder. Of note, the distal end of the stent was seen and was very calcified. At this point, I used a stone grasper, and I used that to break up the calcifications from the stent. I then removed the stent so that the distal end was seen protruding from the urethral meatus. I then advanced the wire of the stent up into the right collecting system. The stent was then removed leaving the wire in place. I then advanced the ureteral catheter up into the right collecting system. Of note, the ureteral catheter did not go all the way up into the kidney due to resistance. At this point, a retrograde pyelogram was performed. It was notable for severe right hydroureteronephrosis. Of note, the ureteral catheter could not be advanced all the way to the renal pelvis. I then tried to put a wire back up the ureteral catheter into the right kidney, and it would not go into the renal pelvis. At this point, the ureteral catheter was removed, and the wire was left in place. I then went up the right collecting system with a flexible ureteroscope and used that to navigate all the way up into the right renal pelvis. Of note, the ureter was very tortuous from prolonged obstruction. Once I was inside the renal pelvis, it was severely dilated. At this point, a wire was advanced through the scope into the renal pelvis and then the ureteroscope was removed. At this point, the wire was utilized to advance a 7-Macedonian x 22-32 cm JJ ureteral stent all the way up into the right collecting system and into the renal pelvis. The wire was then removed, and there were adequate curls of the stent in the right renal pelvis and in the bladder. At this point, the bladder was drained, and all the calcifications from the stent were drained out. Once the bladder was then emptied of all fluids, this marked the conclusion of the procedure. The patient was then taken out of the dorsal lithotomy position, awakened from anesthesia and transported to the recovery room in stable condition. Estimated blood loss: 5 mL. Complications: None. Specimens: None. PLAN: The patient will followup in the clinic in a few months to get her set up for her next sent exchange. Of note, I am concerned that each time that the patient is brought back, her kidney still looks severely dilated despite the stent being placed. This is likely due to the stent being calcified from her not drinking enough water. If she continues to have worsening of her kidney function with time, I will ultimately have to recommend a simple nephrectomy. EDWARD
== END 2019-01-20 17:00 | disposition home or self-care (01) ==
LOC: M SDC 09:49
PROVIDERS: ATTEND Urology
DX: N13.5 Crossing vessel and stricture of ureter without hydronephrosis (principal); I10 Essential (primary) hypertension; E78.5 Hyperlipidemia, unspecified; E11.9 Type 2 diabetes mellitus without complications; K21.9 Gastro-esophageal reflux disease without esophagitis; J44.9 Chronic obstructive pulmonary disease, unspecified; G47.30 Sleep apnea, unspecified; Z79.899 Other long term (current) drug therapy; Z87.891 Personal history of nicotine dependence; F41.9 Anxiety disorder, unspecified
CPT/HCPCS: 52332; 74420; C1769; C2617; J0690; J2250; J2405; J3010; Q9961

== ENCOUNTER → 2019-02-14 | Outpatient (CLI) | payer MEDICARE, MEDICAID ==
[~2019-02-14] MED LIST changes: -LIDOCAINE 1% MDV 20ML VIAL SQ PRN; +LIQUID POLIBAR PLUS 105% w/v 1900ML BTL As Ordered ONE; -LR 1,000 ML IV ONE
--- NOTE | 2019-02-14 14:32 | REP ---
Clinical: Iron-deficiency anemia. Technique: Single supine view of the abdomen and pelvis. Findings: Right ureteral stent in satisfactory position. Bowel gas pattern is nonspecific and without obstruction or perforation. However, significant amount of fecal material is noted suggesting constipation. Calcifications in the pelvis consistent with phleboliths. Skeletal structures appear intact. Impression: Moderate fecal stasis and presumed constipation. Electronically Signed by Dhiraj Jo MD 02/14/2019 02:23 P
== END ==
LOC: M RAD 10:38
PROVIDERS: ATTEND Internal Medicine Gastroenterology
DX: D50.9 Iron deficiency anemia, unspecified (principal); I87.8 Other specified disorders of veins

== ENCOUNTER → 2019-03-01 | Outpatient (REF) | payer MEDICARE, MEDICAID ==
[~2019-03-01] MED LIST changes: -/FENO48TA PO; -/QUET10TA PO; -AMMO12CR4 TOP; +AMMO12CR7 TOP; -LIQUID POLIBAR PLUS 105% w/v 1900ML BTL As Ordered ONE; +SENN-50 PO; -SENN8.6T54 PO; +SERO1TAB PO; +TRIC1TAB PO
[2019-03-01 19:39] LABS: AMORPHOUS SEDIMENT SMALL (NEGATIVE); APPEARANCE, URINE TURBID (CLEAR); BACTERIA, URINE AUTO 1+ (NEGATIVE); BILIRUBIN, URINE AUTO NEGATIVE (NEGATIVE); BLOOD, URINE BLOOD 3+ (NEGATIVE); COLOR, URINE YELLOW (YELLOW); GLUCOSE, URINE (UA) AUTO 3+ mg/dL (NEGATIVE); KETONE, URINE AUTO NEGATIVE (NEGATIVE); LEUKOCYTE ESTERASE, URINE AUTO 3+ (NEGATIVE); NITRITE, URINE AUTO NEGATIVE (NEGATIVE); PROTEIN, URINE AUTO 2+ mg/dL (NEGATIVE); RBC, URINE AUTO TNTC /HPF (0-3); SPECIFIC GRAVITY URINE AUTO 1.011 (1.002-1.035); SQUAMOUS EPITHELIAL CELL UR AU 1 /HPF (0-6); UROBILINOGEN, URINE AUTO 0.2 mg/dL (0.0-2.0); WBC, URINE AUTO 57 /HPF (0-3)
== END ==
LOC: M LAB REF 18:49
PROVIDERS: ATTEND Nurse Practitioner Family
DX: R32 Unspecified urinary incontinence (principal)

== ENCOUNTER → 2019-03-07 | Outpatient (CLI) | payer MEDICARE, MEDICAID | LOC: M WUC 16:36 | PROVIDERS: ATTEND Nurse Practitioner Family | DX: R32 Unspecified urinary incontinence (principal) ==

== ENCOUNTER → 2019-03-14 | Outpatient (CLI) | payer MEDICARE, MEDICAID ==
[~2019-03-14] MED LIST changes: +LIQUID POLIBAR PLUS 105% w/v 1900ML BTL As Ordered ONE
--- NOTE | 2019-03-15 16:41 | REP ---
The barium and air contrast material. The procedure was performed by IZZY Mcgarry, under the direct supervision of Dr. Peña. All images were reviewed with Dr. Peña. The mine exploration engineer film shows a right ureteral stent. Liquid barium and air were installed into the colon and retrograde flow of the barium air mixture. The colon is markedly redundant and limiting this exam. There is question of a small polyp in the upper rectosigmoid region. Several smaller filling defects in the lower rectosigmoid area are also noted possibly representing small polyps. There is a large polypoid mass in the lower rectosigmoid colon measuring 3 cm in diameter. There is free flow of contrast to the region of the cecum, no reflux into the ileum is noted. Impression: 1. 3 cm polypoid mass in the lower rectosigmoid colon. 2. Small polyp in the upper rectosigmoid region, question of multiple smaller polyps in the lower rectosigmoid. 3. Markedly redundant colon limiting exam. Fluoroscopy time 3.5 minutes. Reviewed by IZZY Alegre 03/15/2019 01:24 P Electronically Signed by Donny Peña MD 03/15/2019 04:33 P
== END ==
LOC: M RAD 09:31
PROVIDERS: ATTEND Internal Medicine Gastroenterology
DX: K63.5 Polyp of colon (principal); D50.9 Iron deficiency anemia, unspecified

== ENCOUNTER → 2019-04-02 | Outpatient (CLI) | payer MEDICARE, MEDICAID ==
[~2019-04-02] MED LIST changes: +ALL10TAB28 PO; -LIQUID POLIBAR PLUS 105% w/v 1900ML BTL As Ordered ONE; +MAGN1TAB26 PO; +OYST1TAB PO; +VITA1CHW8 PO
[2019-04-02 18:33] LABS: FREE T4 0.98 NG/DL (0.76-1.46); THYROID STIMULATING HORMONE 0.603 uIU/ML (0.358-3.740)
[2019-04-03 09:42] LABS: THYROID PEROXIDASE ANTIBODY 30.9 U/ML (<60.0)
== END ==
LOC: M WUC 09:14
PROVIDERS: ATTEND Nurse Practitioner Family
DX: E04.0 Nontoxic diffuse goiter (principal)

== ENCOUNTER → 2019-04-12 | Outpatient (CLI) | payer MEDICARE, MEDICAID ==
[2019-04-12 09:27] LABS: AMORPHOUS SEDIMENT SMALL (NEGATIVE); APPEARANCE, URINE TURBID (CLEAR); BACTERIA, URINE AUTO NEGATIVE (NEGATIVE); BILIRUBIN, URINE AUTO NEGATIVE (NEGATIVE); BLOOD, URINE BLOOD 2+ (NEGATIVE); CALCIUM OXALATE CRYSTALS SMALL; COLOR, URINE YELLOW (YELLOW); GLUCOSE, URINE (UA) AUTO 3+ mg/dL (NEGATIVE); KETONE, URINE AUTO NEGATIVE (NEGATIVE); LEUKOCYTE ESTERASE, URINE AUTO 3+ (NEGATIVE); MUCUS, URINE MODERATE (NEGATIVE); NITRITE, URINE AUTO NEGATIVE (NEGATIVE); PROTEIN, URINE AUTO 2+ mg/dL (NEGATIVE); RBC, URINE AUTO 111 /HPF (0-3); SPECIFIC GRAVITY URINE AUTO 1.014 (1.002-1.035); SQUAMOUS EPITHELIAL CELL UR AU 0 /HPF (0-6); UROBILINOGEN, URINE AUTO 0.2 mg/dL (0.0-2.0); WBC, URINE AUTO 150 /HPF (0-3)
[2019-04-12 09:28] LABS: HEMATOCRIT 43.4 % (36.0-47.0); HEMOGLOBIN 14.2 g/dl (12.0-15.5); MEAN CORPUSCULAR HEMOGLOBIN 32.7 pg (27.0-33.0); MEAN CORPUSCULAR HGB CONC 32.7 g/dl (32.0-36.5); PLATELET COUNT, AUTOMATED 243 10^3/uL (150-450); RED BLOOD COUNT 4.34 10^6/uL (4.00-5.40); WHITE BLOOD COUNT 3.8 10^3/uL (4.0-10.0)
[2019-04-12 09:41] LABS: INR 0.93; PROTHROMBIN TIME 12.6 SECONDS (12.1-14.4)
[2019-04-12 09:42] LABS: PARTIAL THROMBOPLASTIN TIME 29.1 SECONDS (25.4-37.6)
[2019-04-12 10:16] LABS: BLOOD UREA NITROGEN 26 MG/DL (7-18); CALCIUM LEVEL 9.3 MG/DL (8.8-10.2); CARBON DIOXIDE LEVEL 30 MEQ/L (21-32); CHLORIDE LEVEL 109 MEQ/L (98-107); CREATININE FOR GFR 0.53 MG/DL (0.55-1.30); GLOMERULAR FILTRATION RATE > 60.0 (>45); GLUCOSE, FASTING 143 MG/DL (70-100); SODIUM LEVEL 146 MEQ/L (136-145)
== END ==
LOC: M WUC 08:15
PROVIDERS: ATTEND Nurse Practitioner Family
DX: Z01.818 Encounter for other preprocedural examination (principal); N13.5 Crossing vessel and stricture of ureter without hydronephrosis

== ENCOUNTER 2019-04-19 10:03 | Day surgery (SDC) | payer MEDICARE, MEDICAID ==
[~2019-04-19] VITALS: Ht 152.4 cm; Wt 53.3 kg
[2019-04-19] MEDS ORDERED: LR 1,000 ML IV SCH (14:15)
[2019-04-19] MEDS ORDERED: LIDOCAINE 2% 5ML JELLY UROJET As Ordered ONE (15:07)
[2019-04-19] MEDS ORDERED: CONRAY-60 60% 50ML VIAL (Q9961) As Ordered ONE (15:08)
--- NOTE | 2019-04-19 18:58 | REP ---
Clinical: Stent placement. Technique: Multiple intraoperative fluoroscopic imaging using portable C-arm technique. Findings: Multiple images demonstrate satisfactory right ureteral stent placement. Total fluoroscopic time 33 seconds. Impression: Status post right ureteral stent placement. Electronically Signed by Dhiraj oJ MD 04/19/2019 06:50 P
--- NOTE | 2019-04-19 19:02 | ROOPDOC ---
[facility] Report Of Operation Report of Operation DATE OF PROCEDURE: 04/19/19 PREPROCEDURE DIAGNOSIS: Right ureteral stricture. POSTPROCEDURE DIAGNOSIS: Right ureteral stricture. PROCEDURE: Cystoscopy, right ureteroscopy, right ureteral stent exchange, right retrograde pyelogram with intraoperative interpretation of images. SURGEON: Dr. Forest Gan CASINO SHIFT MANAGER: None. ANESTHESIA: Monitored anesthesia care (MAC). OPERATIVE INDICATIONS: This is a 64-year-old female with a history of a right ureteral stricture. It has been managed with chronic ureteral stenting. She was brought to the operating room today for routine stent exchange. DESCRIPTION OF PROCEDURE: The patient was brought to the operating room and MAC anesthesia was administered. Prophylactic antibiotics were infused. She was then placed in the dorsal lithotomy position and prepped and draped in the usual sterile fashion. At this point, a rigid cystoscope was inserted into the urethral meatus and advanced to the bladder. Of note, the distal end of the stent was was very calcified. At this point, I used a stone grasper, and I used that to break up the calcifications from the stent. I then advanced a wire up the right collecting system along side the stent but it only went up to the mid ureter. The stent was then removed and I went up the right ureter with a short semirigid ureteroscope. With the ureteroscope I was able to navigate all the way into the right kidney. I then advanced the wire up the ureteroscope and into the right right renal pelvis. The ureteroscope was removed and a 5-Albanian open ended ureteral catheter was advanced over the wire and into the kidney. The wire was removed and a retrograde pyelogram was performed. It was notable for severe right hydroureteronephrosis. I then advanced the wire back up the ureteral catheter and into the kidney. At this point, the wire was utilized to advance a 7-Albanian x 22-32 cm JJ ureteral stent all the way up into the right collecting system and into the renal pelvis. The wire was then removed, and there were adequate curls of the stent in the right renal pelvis and in the bladder. At this point, the bladder was drained and this marked the conclusion of the procedure. The patient was then taken out of the dorsal lithotomy position, awakened from anesthesia and transported to the recovery room in stable condition. Estimated blood loss: 5 mL. Complications: None. Specimens: None. PLAN: I will obtain another lasix renal scan on the patient to assess the funct ion of her right kidney. I do not think the chronic stenting is helping as she continues to have severe hydronephrosis each time I change her stent. At this point I will likely recommend a right simple nephrectomy for treatment. FOREST GAN MD April 19, 2019 19:02
[2019-04-19 19:55] VITALS: BP 131/75
[2019-04-19] MEDS ORDERED: fentaNYL 100 MCG/2 ML INJECTION (J3010) As Ordered ONE (20:08)
[2019-04-19] MEDS ORDERED: PROPOFOL 200 MG/20 ML VIAL As Ordered ONE (20:08)
[2019-04-19] MEDS ORDERED: LIDOCAINE 2% INJ 100 MG/5 ML SDV (FOR ANES.) As Ordered ONE (20:08)
[2019-04-19] MEDS ORDERED: dexameTHASONE 4 MG/ML 1ML VIAL (J1100) As Ordered ONE (20:08)
[2019-04-19] MEDS ORDERED: MIDAZOLAM INJ 2 MG/2 ML VIAL (J2250) As Ordered ONE (20:08)
== END 2019-04-19 20:05 | disposition home or self-care (01) ==
LOC: M SDC 10:03
PROVIDERS: ATTEND Urology
DX: N13.1 Hydronephrosis with ureteral stricture, not elsewhere classified (principal); E11.9 Type 2 diabetes mellitus without complications; E78.5 Hyperlipidemia, unspecified; F41.9 Anxiety disorder, unspecified; G47.30 Sleep apnea, unspecified; K21.9 Gastro-esophageal reflux disease without esophagitis; G43.909 Migraine, unspecified, not intractable, without status migrainosus; D64.9 Anemia, unspecified; Z79.899 Other long term (current) drug therapy
CPT/HCPCS: 52332; 74420; C1769; C2617; J0690; J1100; J2250; J3010; Q9961

== ENCOUNTER → 2019-04-28 | Outpatient (CLI) | payer MEDICARE, MEDICAID ==
--- NOTE | 2019-04-28 10:51 | REP ---
RENAL NUCLEAR SCAN WITH FLOW AND FUNCTION: Following the intravenous administration of 8.8 mCi of technetium-99m MAG 3, immediate flow images are obtained in the posterior projection showing symmetrical blood flow bilaterally. Delayed renal function images are then performed every minute for a period of 30 minutes in the posterior projection. Comparison made with prior study of 10/20/2018. There is again delayed cortical uptake on the right. There is also delayed excretion on the right. There is moderate left hydronephrosis and severe right hydronephrosis. Findings are similar to the prior study. Split function is 65.1% on the left and 34.9% on the right, not significantly changed. Time to peak is 3 minutes on the left and 0.6 minutes on the right. T1/2 on the left is 11.8 minutes, previously 10.3 minutes. T1/2 on the right is not calculated as the renal function curve is essentially a plateau. Renal function curve for the left kidney is mildly shallow in its downward slope. There is very mild postvoid residual in the urinary bladder after voiding with no change in bilateral hydronephrosis. IMPRESSION: Mild to moderate left hydronephrosis and does not appear to be completely obstructive. Appearance is similar to the prior study of 10/20/2018. There is again severe right hydronephrosis as seen on prior study with nonobstructive scintigraphic pattern unchanged. Electronically Signed by Donny Peña MD 05/02/2019 09:42 A
== END ==
LOC: M RAD 07:34
PROVIDERS: ATTEND Urology
DX: N13.5 Crossing vessel and stricture of ureter without hydronephrosis (principal)
CPT/HCPCS: 78707; A9562

== ENCOUNTER → 2019-05-11 | Outpatient (REF) | payer MEDICARE, MEDICAID ==
[~2019-05-11] MED LIST changes: +BYDU1INJ SC
== END ==
LOC: M LAB REF 12:04
PROVIDERS: ATTEND Internal Medicine Endocrinology, Diabetes & Metabolism
DX: E04.1 Nontoxic single thyroid nodule (principal)

== ENCOUNTER → 2019-05-21 | Outpatient (CLI) | payer MEDICARE, MEDICAID ==
[2019-05-21 17:55] LABS: BASO % 0.3 % (0.0-1.0); EOS # 0.1 10^3/uL (0.0-0.50); EOS % 1.9 % (0.0-3.0); HEMATOCRIT 45.2 % (36.0-47.0); HEMOGLOBIN 14.1 g/dl (12.0-15.5); LYMPH % 28.1 % (24.0-44.0); MEAN CORPUSCULAR HEMOGLOBIN 31.8 pg (27.0-33.0); MEAN CORPUSCULAR HGB CONC 31.2 g/dl (32.0-36.5); MONO # 0.4 10^3/uL (0.0-0.8); MONO % 9.5 % (0.0-5.0); NEUTROPHILS # 2.2 10^3/uL (1.8-7.7); NEUTROPHILS % 59.4 % (36.0-66.0); PLATELET COUNT, AUTOMATED 251 10^3/uL (150-450); RED BLOOD COUNT 4.43 10^6/uL (4.00-5.40); WHITE BLOOD COUNT 3.7 10^3/uL (4.0-10.0)
[2019-05-21 17:58] LABS: ALBUMIN 3.4 GM/DL (3.2-5.2); ALT/SGPT 40 U/L (12-78); BILIRUBIN,TOTAL 0.1 MG/DL (0.2-1.0); BLOOD UREA NITROGEN 22 MG/DL (7-18); CALCIUM LEVEL 8.8 MG/DL (8.8-10.2); CARBON DIOXIDE LEVEL 34 MEQ/L (21-32); CHLORIDE LEVEL 108 MEQ/L (98-107); CHOLESTEROL LEVEL 174 MG/DL (<200); CHOLESTEROL RISK RATIO 2.636 (<5); GLOMERULAR FILTRATION RATE > 60.0 (>45); GLUCOSE, FASTING 160 MG/DL (70-100); HDL CHOLESTEROL 66 MG/DL (>40); LDL CHOLESTEROL 83 MG/DL (<100); NON-HDL-C 108 MG/DL; POTASSIUM SERUM 3.8 MEQ/L (3.5-5.1); SODIUM LEVEL 148 MEQ/L (136-145); TOTAL PROTEIN 6.6 GM/DL (6.4-8.2); TRIGLYCERIDES LEVEL 126 MG/DL (<150)
[2019-05-21 18:11] LABS: HEMOGLOBIN A1c 7.5 %
== END ==
LOC: M WUC 08:11
PROVIDERS: ATTEND Physician Assistant
DX: F70 Mild intellectual disabilities (principal)

== ENCOUNTER 2019-05-29 07:47 | Day surgery (SDC) | payer MEDICARE, MEDICAID ==
[~2019-05-29] VITALS: Ht 154.9 cm; Wt 54.4 kg
[~2019-05-29 07:47] MED LIST changes: -ALL10TAB28 PO; +ALL10TAB29 PO; +DEBR6.5S4 AU; -DEBR6.5S4 OTIC; -FENO48TA2 PO; +FENO48TA7 PO; -SIMV40TA2 PO; +SIMV40TA20 PO
[2019-05-29] MEDS ORDERED: NS 1,000 ML IV ONE (08:00)
[2019-05-29] MEDS ORDERED: propofoL 200 MG/20 ML VIAL As Ordered ONE ×3 (08:38→10:05)
[2019-05-29] MEDS ORDERED: LIDOCAINE 2% INJ 100 MG/5 ML SDV (FOR ANES.) As Ordered ONE (08:38)
--- NOTE | 2019-05-29 10:22 | ROOR ---
Patient Name: Lucy Yusuf Procedure Date: 05/29/2019 8:51 AM Date of : 1955 Age: 64 Room: [facility] Gender: Female Note Status: Finalized Procedure: Colonoscopy Indications: Therapeutic procedure for known colon polyp Providers: Brenden Ricardo MD Referring MD: LILIANA SILVESTRE MD Requesting Provider: Medicines: Monitored Anesthesia Care Complications: No immediate complications. Procedure: Pre-Anesthesia Assessment: - Prior to the procedure, a History and Physical was performed, and patient medications and allergies were reviewed. The patient is competent. The risks and benefits of the procedure and the sedation options and risks were discussed with the patient. All questions were answered and informed consent was obtained. Patient identification and proposed procedure were verified by the physician, the nurse and the anesthesiologist in the procedure room. Mental Status Examination: alert and oriented. Airway Examination: normal oropharyngeal airway and neck mobility. Respiratory Examination: clear to auscultation. CV Examination: normal. Prophylactic Antibiotics: The patient does not require prophylactic antibiotics. Prior Anticoagulants: The patient has taken no previous anticoagulant or antiplatelet agents. ASA Grade Assessment: II - A patient with mild systemic disease. After reviewing the risks and benefits, the patient was deemed in satisfactory condition to undergo the procedure. The anesthesia plan was to use monitored anesthesia care (MAC). Immediately prior to administration of medications, the patient was re-assessed for adequacy to receive sedatives. The heart rate, respiratory rate, oxygen saturations, blood pressure, adequacy of pulmonary ventilation, and response to care were monitored throughout the procedure. The physical status of the patient was re-assessed after the procedure. The Colonoscope was introduced through the anus with the intention of advancing to the cecum. The scope was advanced to the ascending colon before the procedure was aborted. Medications were given. The colonoscopy was performed without difficulty. The patient tolerated the procedure well. The quality of the bowel preparation was fair except the transverse colon was poor and the ascending colon was poor. The rectum was photographed. Scope insertion time was 8 minutes. Scope withdrawal time was 20 minutes. The total duration of the procedure was 28 minutes. Findings: The perianal and digital rectal examinations were normal. A 45 mm polyp was found in the sigmoid colon. The polyp was sessile. The polyp was removed with a piecemeal technique using a hot snare. Resection and retrieval were complete. To close a defect after polypectomy, two hemostatic clips were successfully placed. There was no bleeding at the end of the procedure. Verification of patient identification for the specimen was done by the physician and nurse using the patient's name, date and medical record number. Estimated blood loss was minimal. Five sessile polyps were found in the rectum, descending colon and hepatic flexure. The polyps were 6 to 12 mm in size. These polyps were removed with a hot snare. Resection and retrieval were complete. Non-bleeding external and internal hemorrhoids were found during retroflexion. The hemorrhoids were medium-sized. Impression: - One 45 mm polyp in the sigmoid colon, removed piecemeal using a hot snare. Resected and retrieved. Clips were placed. - Five 6 to 12 mm polyps in the rectum, in the descending colon and at the hepatic flexure, removed with a hot snare. Resected and retrieved. - Non-bleeding external and internal hemorrhoids. Recommendation: - Patient has a contact number available for emergencies. The signs and symptoms of potential delayed complications were discussed with the patient. Return to normal activities tomorrow. Written discharge instructions were provided to the patient. - Clear liquid diet for 2 days, then advance as tolerated to high fiber diet. - Continue present medications. - Await pathology results. - Miralax 1 capful (17 grams) in 8 ounces of water PO BID. - Await pathology results. - Return to GI clinic 1 - 2 weeks. Please call GI clinic @ [phone] for apppointment date and time. - Return to primary care physician. Brenden Ricardo MD Brenden Ricardo MD 05/29/2019 10:21:47 AM Electronically signed by Brenden Ricardo MD Number of Addenda: 0 Note Initiated On: 05/29/2019 8:51 AM Estimated Blood Loss: Estimated blood loss was minimal.
[2019-05-29 10:59] VITALS: BP 147/97
[2019-07-06] MEDS ORDERED: MIRA3350 PO (13:10)
[2019-07-06] MEDS ORDERED: LINZ145C PO (13:10)
[2019-10-05] MEDS ORDERED: BASA100I SC (13:46)
== END 2019-05-29 11:00 | disposition home or self-care (01) ==
LOC: M OPP 07:47
PROVIDERS: ATTEND Internal Medicine Gastroenterology
DX: D12.5 Benign neoplasm of sigmoid colon (principal); D12.4 Benign neoplasm of descending colon; K63.5 Polyp of colon; K62.1 Rectal polyp; K64.0 First degree hemorrhoids; R93.3 Abnormal findings on diagnostic imaging of other parts of digestive tract; Z79.899 Other long term (current) drug therapy; Z79.84 Long term (current) use of oral hypoglycemic drugs; Z88.8 Allergy status to other drugs, medicaments and biological substances

== ENCOUNTER → 2019-07-05 | Outpatient (CLI) | payer MEDICARE, MEDICAID ==
[~2019-07-05] MED LIST changes: +ALL10TAB28 PO; -ALL10TAB29 PO; -DEBR6.5S4 AU; +DEBR6.5S4 OTIC; +FENO48TA2 PO; -FENO48TA7 PO; +LINZ145C PO; +MIRA3350 PO; +SIMV40TA2 PO; -SIMV40TA20 PO
[2019-07-05 07:13] LABS: HEMATOCRIT 47.2 % (36.0-47.0); HEMOGLOBIN 15.2 g/dl (12.0-15.5); MEAN CORPUSCULAR HEMOGLOBIN 32.8 pg (27.0-33.0); MEAN CORPUSCULAR HGB CONC 32.2 g/dl (32.0-36.5); MEAN CORPUSCULAR VOLUME 101.7 fl (80.0-96.0); PLATELET COUNT, AUTOMATED 250 10^3/uL (150-450); RED BLOOD COUNT 4.64 10^6/uL (4.00-5.40)
[2019-07-05 07:24] LABS: INR 1.04; PROTHROMBIN TIME 13.3 SECONDS (11.8-14.0)
[2019-07-05 07:25] LABS: PARTIAL THROMBOPLASTIN TIME 29.7 SECONDS (25.0-38.4)
[2019-07-05 07:33] LABS: BLOOD UREA NITROGEN 36 MG/DL (7-18); CALCIUM LEVEL 11.6 MG/DL (8.8-10.2); CARBON DIOXIDE LEVEL 35 MEQ/L (21-32); CHLORIDE LEVEL 103 MEQ/L (98-107); CREATININE FOR GFR 0.79 MG/DL (0.55-1.30); GLOMERULAR FILTRATION RATE > 60.0 (>45); GLUCOSE, FASTING 218 MG/DL (70-100); POTASSIUM SERUM 4.1 MEQ/L (3.5-5.1); SODIUM LEVEL 144 MEQ/L (136-145)
--- NOTE | 2019-07-05 10:58 | REP ---
X-RAY: TWO VIEWS. HISTORY: Ureteral stricture. COMPARISON STUDY: January 11, 2019 FINDINGS: The lungs are symmetrically aerated and free of infiltrate. Pleural angles are sharp. Heart size is normal. Pulmonary vasculature is not increased. There are degenerative changes in the thoracic spine. There is evidence of enlargement of the right side of the thyroid gland, unchanged from the January 11, 2019 and September 28, 2018 prior radiographs. IMPRESSION: No active cardiopulmonary disease. Right thyroid gland enlargement. Electronically Signed by Javi Chaparro MD 07/05/2019 08:57 P
== END ==
LOC: M LAB 06:24
PROVIDERS: ATTEND Nurse Practitioner Family
DX: N13.5 Crossing vessel and stricture of ureter without hydronephrosis (principal); Z01.818 Encounter for other preprocedural examination

== ENCOUNTER → 2019-07-13 | Outpatient (REF) | payer MEDICARE, MEDICAID ==
[~2019-07-13] MED LIST changes: -ALL10TAB28 PO; +ALL10TAB29 PO; +AMMO12LO TOP; +BASA100I SC; +DEBR6.5S4 AU; -DEBR6.5S4 OTIC; -FENO48TA2 PO; +FENO48TA7 PO; +FERR1TAB8 PO; +GNP8.6TA PO; +HM S0.65 NARES; +IBUP200T45 PO; +IMIT50TA PO; +INCR1INH INH; +LAMO100T80 PO; +NITR-67 PO; +SERO50TA PO; -SIMV40TA2 PO; +SIMV40TA20 PO; +SPIR1CAP INH; +TRIC145T22 PO; +WELL100T2 PO; +ZYRTTAB8 PO; +campral PO
[2019-07-13 20:09] LABS: APPEARANCE, URINE HAZY (CLEAR); BACTERIA, URINE AUTO 2+ (NEGATIVE); BILIRUBIN, URINE AUTO NEGATIVE (NEGATIVE); BLOOD, URINE BLOOD 2+ (NEGATIVE); COLOR, URINE YELLOW (YELLOW); GLUCOSE, URINE (UA) AUTO 3+ mg/dL (NEGATIVE); KETONE, URINE AUTO NEGATIVE (NEGATIVE); LEUKOCYTE ESTERASE, URINE AUTO 3+ (NEGATIVE); MUCUS, URINE SMALL (NEGATIVE); NITRITE, URINE AUTO NEGATIVE (NEGATIVE); PROTEIN, URINE AUTO 2+ mg/dL (NEGATIVE); RBC, URINE AUTO 151 /HPF (0-3); SPECIFIC GRAVITY URINE AUTO 1.015 (1.002-1.035); SQUAMOUS EPITHELIAL CELL UR AU 0 /HPF (0-6); UROBILINOGEN, URINE AUTO 0.2 mg/dL (0.0-2.0); WBC, URINE AUTO TNTC /HPF (0-3)
== END ==
LOC: M SMT 10:50
PROVIDERS: ATTEND Nurse Practitioner Family
DX: N13.5 Crossing vessel and stricture of ureter without hydronephrosis (principal); Z01.818 Encounter for other preprocedural examination

== ENCOUNTER 2019-07-20 08:59 | Day surgery (SDC) | payer MEDICARE, MEDICAID ==
[~2019-07-20] VITALS: Ht 156.2 cm; Wt 56.0 kg
[~2019-07-20 08:59] MED LIST changes: -AMMO12LO TOP; -BASA100I SC; -DEBR6.5S4 AU; +DEBR6.5S4 OTIC; +FENO48TA2 PO; -FENO48TA7 PO; -FERR1TAB8 PO; -GNP8.6TA PO; -HM S0.65 NARES; -IBUP200T45 PO; -IMIT50TA PO; -INCR1INH INH; -LAMO100T80 PO; +LIDOCAINE 1% MDV 20ML VIAL SQ PRN; +LR 1,000 ML IV ONE; -NITR-67 PO; -SERO50TA PO; +SIMV40TA2 PO; -SIMV40TA20 PO; -SPIR1CAP INH; -TRIC145T22 PO; -WELL100T2 PO; -ZYRTTAB8 PO; -campral PO
[2019-07-20] MEDS ORDERED: PROPOFOL 200 MG/20 ML VIAL As Ordered ONE (10:45)
[2019-07-20] MEDS ORDERED: LIDOCAINE 2% INJ 100 MG/5 ML SDV (FOR ANES.) As Ordered ONE (10:45)
[2019-07-20] MEDS ORDERED: fentaNYL 100 MCG/2 ML INJECTION (J3010) As Ordered ONE (10:45)
[2019-07-20] MEDS ORDERED: MIDAZOLAM INJ 2 MG/2 ML VIAL (J2250) As Ordered ONE (10:46)
[2019-07-20] MEDS ORDERED: CONRAY-60 60% 50ML VIAL (Q9961) As Ordered ONE (10:51)
[2019-07-20] MEDS ORDERED: LIDOCAINE 2% 5ML JELLY UROJET As Ordered ONE (11:22)
[2019-07-20] MEDS ORDERED: ONDANSETRON 4MG/2ML VIAL (J2405) As Ordered ONE (11:38)
--- NOTE | 2019-07-20 12:02 | REP ---
Retrograde pyelogram: A series of two intraoperative fluoroscopic views are performed and demonstrate a right ureteral stent with the proximal distal pigtails in satisfactory locations. Fluoroscopic exposure time is 45 seconds. The fluoroscopic views are performed with last image hold technology and require no additional radiation. Electronically Signed by Donny Dean MD 07/20/2019 11:53 A
[2019-07-20 12:35] VITALS: BP 135/95
--- NOTE | 2019-07-21 09:29 | RO ---
DATE OF PROCEDURE: 07/20/2019 PREPROCEDURE DIAGNOSIS: Right ureteral stricture. POSTPROCEDURE DIAGNOSIS: Right ureteral stricture. PROCEDURE: Cystoscopy, right ureteroscopy, right retrograde pyelogram with intraoperative interpretation of images, right ureteral stent exchange. SURGEON: Dr. Marcelino Salas SENIOR VICE PRESIDENT AND CHIEF INFORMATION OFFICER: None. ANESTHESIA: MAC. OPERATIVE INDICATIONS: This is a 64-year-old female with a right ureteral stricture that has been managed with chronic ureteral stenting. She was brought to the operating room today for routine stent exchange. DESCRIPTION OF PROCEDURE: The patient was brought to the operating room where MAC anesthesia was administered. Prophylactic antibiotics were infused. She was placed in dorsal lithotomy position and then prepped and draped in the usual sterile fashion. A rigid cystoscope inserted into the urethral meatus and advanced into the bladder. A guidewire was advanced up alongside the right stent and of note it would not go past the distal ureter. The stent was then removed and then I went inside the right ureter with a short semi-rigid ureteroscope. At the level of the distal ureter, there was a lot of ureteral edema. I was ultimately able to advance the wire past the ureteral edema and into the right renal pelvis. At this point, the short semi-rigid ureteroscope was removed and then an open ended ureteral catheter was advanced over the wire into the right renal pelvis. A retrograde pyelogram was performed and notable for severe right hydronephrosis and no extravasation. I then advanced the wire back up the right collecting system and then removed the ureteral catheter. I then utilized the wire to advance a 7 Greenlandic x 22-32 cm JJ ureteral stent up into the right collecting system. The wire was removed and there were adequate curls of the stent in the right renal pelvis and in the bladder. The bladder was emptied of all fluid and this marked the conclusion of the procedure. The patient was then taken out of the dorsal lithotomy position, awakened from anesthesia and transported to the recovery room in stable condition. Estimated blood loss: 5 mL. Complications: None. Specimen: None. Plan: Will have the patient followup in the clinic in approximately 2 months and get her set up for her next stent exchange.
== END 2019-07-20 13:08 | disposition home or self-care (01) ==
LOC: M SDC 08:59
PROVIDERS: ATTEND Urology
DX: N13.5 Crossing vessel and stricture of ureter without hydronephrosis (principal); E78.5 Hyperlipidemia, unspecified; R94.31 Abnormal electrocardiogram [ECG] [EKG]; E11.9 Type 2 diabetes mellitus without complications; G47.30 Sleep apnea, unspecified; Z79.899 Other long term (current) drug therapy; Z79.84 Long term (current) use of oral hypoglycemic drugs; K58.8 Other irritable bowel syndrome; K21.9 Gastro-esophageal reflux disease without esophagitis; M81.0 Age-related osteoporosis without current pathological fracture; Z87.891 Personal history of nicotine dependence
CPT/HCPCS: 52332; 74420; C1769; J0690; J2250; J2405; J3010; Q9961

== ENCOUNTER 2019-08-07 07:00 | Day surgery (SDC) | payer MEDICARE, MEDICAID ==
[~2019-08-07] VITALS: Ht 152.4 cm; Wt 54.4 kg
[2019-08-07] MEDS: NS 1,000 ML IV ONE (06:00)
[~2019-08-07 07:00] MED LIST changes: +DEBR6.5S4 AU; -DEBR6.5S4 OTIC; -LIDOCAINE 1% MDV 20ML VIAL SQ PRN; -LR 1,000 ML IV ONE
[2019-08-07] MEDS ORDERED: PROPOFOL 200 MG/20 ML VIAL As Ordered ONE ×2 (08:40→09:13)
[2019-08-07] MEDS ORDERED: LIDOCAINE 2% INJ 100 MG/5 ML SDV (FOR ANES.) As Ordered ONE (08:40)
--- NOTE | 2019-08-07 09:39 | ROOR ---
Patient Name: Lucy Yusuf Procedure Date: 08/07/2019 8:20 AM Date of : 1955 Age: 64 Room: [facility] Gender: Female Note Status: Finalized Procedure: Colonoscopy Indications: Therapeutic procedure for colon polyps Providers: Brenden Ricardo MD Referring MD: LILIANA SILVESTRE MD Requesting Provider: Medicines: Monitored Anesthesia Care Complications: No immediate complications. Procedure: Pre-Anesthesia Assessment: - Prior to the procedure, a History and Physical was performed, and patient medications and allergies were reviewed. The patient is competent. The risks and benefits of the procedure and the sedation options and risks were discussed with the patient. All questions were answered and informed consent was obtained. Patient identification and proposed procedure were verified by the physician, the nurse and the anesthesiologist in the procedure room. Mental Status Examination: alert and oriented. Airway Examination: normal oropharyngeal airway and neck mobility. Respiratory Examination: clear to auscultation. CV Examination: normal. Prophylactic Antibiotics: The patient does not require prophylactic antibiotics. Prior Anticoagulants: The patient has taken no previous anticoagulant or antiplatelet agents. ASA Grade Assessment: II - A patient with mild systemic disease. After reviewing the risks and benefits, the patient was deemed in satisfactory condition to undergo the procedure. The anesthesia plan was to use monitored anesthesia care (MAC). Immediately prior to administration of medications, the patient was re-assessed for adequacy to receive sedatives. The heart rate, respiratory rate, oxygen saturations, blood pressure, adequacy of pulmonary ventilation, and response to care were monitored throughout the procedure. The physical status of the patient was re-assessed after the procedure. The Colonoscope was introduced through the anus and advanced to the terminal ileum, with identification of the appendiceal orifice and IC valve. The colonoscopy was performed without difficulty. The patient tolerated the procedure well. The quality of the bowel preparation was poor. The terminal ileum, ileocecal valve, appendiceal orifice, and rectum were photographed. Scope insertion time was 4 minutes. Scope withdrawal time was 8 minutes. The total duration of the procedure was 12 minutes. Findings: The perianal and digital rectal examinations were normal. The terminal ileum appeared normal. A large amount of semi-liquid stool was found from transverse colon to cecum, interfering with visualization. Lavage of the area was performed using a large amount of sterile water, resulting in clearance with fair visualization. Four sessile polyps were found in the cecum. The polyps were 5 to 15 mm in size. These polyps were removed with a hot snare. Resection and retrieval were complete. To close a defect after polypectomy, one hemostatic clip was successfully placed. There was no bleeding at the end of the procedure. Verification of patient identification for the specimen was done by the physician and nurse using the patient's name, date and medical record number. Estimated blood loss was minimal. A 10 mm polyp was found in the ascending colon. The polyp was sessile. The polyp was removed with a hot snare. Resection and retrieval were complete. To close a defect after polypectomy, one hemostatic clip was successfully placed. There was no bleeding at the end of the procedure. A 8 mm polyp was found in the distal transverse colon. The polyp was sessile. The polyp was removed with a hot snare. Resection and retrieval were complete. A 35 mm polyp was found in the transverse colon. The polyp was sessile. The polyp was removed with a hot snare. Resection and retrieval were complete. To close a defect after polypectomy, three hemostatic clips were successfully placed. There was no bleeding at the end of the procedure. Non-bleeding external and internal hemorrhoids were found during retroflexion. The hemorrhoids were medium-sized. Impression: - Preparation of the colon was poor. - The examined portion of the ileum was normal. - Stool from transverse colon to cecum. - Four 5 to 15 mm polyps in the cecum, removed with a hot snare. Resected and retrieved. Clip was placed. - One 10 mm polyp in the ascending colon, removed with a hot snare. Resected and retrieved. Clip was placed. - One 8 mm polyp in the distal transverse colon, removed with a hot snare. Resected and retrieved. - One 35 mm polyp in the transverse colon, removed with a hot snare. Resected and retrieved. Clips were placed. - Non-bleeding external and internal hemorrhoids. Recommendation: - Patient has a contact number available for emergencies. The signs and symptoms of potential delayed complications were discussed with the patient. Return to normal activities tomorrow. Written discharge instructions were provided to the patient. - Clear liquid diet for 1 day, then advance as tolerated to high fiber diet. - Continue present medications. - Await pathology results. - Repeat colonoscopy in 1 year for surveillance based on pathology results. - Telephone GI clinic for pathology results in 2 weeks. - Return to primary care physician. Brenden Ricardo MD Bernden Ricardo MD 08/07/2019 9:39:28 AM Electronically signed by Brenden Ricardo MD Number of Addenda: 0 Note Initiated On: 08/07/2019 8:20 AM Estimated Blood Loss: Estimated blood loss was minimal.
[2019-08-07 10:02] VITALS: BP 117/64
== END 2019-08-07 10:30 | disposition home or self-care (01) ==
LOC: M OPP 07:00
PROVIDERS: ATTEND Internal Medicine Gastroenterology
DX: K64.8 Other hemorrhoids (principal); D12.0 Benign neoplasm of cecum; D12.2 Benign neoplasm of ascending colon; D12.3 Benign neoplasm of transverse colon; G47.30 Sleep apnea, unspecified; E11.9 Type 2 diabetes mellitus without complications; Z88.4 Allergy status to anesthetic agent; Z79.899 Other long term (current) drug therapy; Z79.84 Long term (current) use of oral hypoglycemic drugs

== ENCOUNTER 2019-08-10 10:55 | Inpatient (IN) | payer MEDICARE, MEDICAID ==
[~2019-08-10] VITALS: Ht 152.4 cm; Wt 58.5 kg
[~2019-08-10 10:55] MED LIST changes: -FERR1TAB8 PO; -HM S0.65 NARES; -IBUP200T45 PO; -IMIT50TA PO; -INCR1INH INH; -SPIR1CAP INH; -WELL100T2 PO
[2019-08-10] MEDS ORDERED: ZOCO40TA PO (11:20)
[2019-08-10] MEDS ORDERED: WELL100T2 PO (11:20)
[2019-08-10] MEDS ORDERED: IMIT50TA PO (11:20)
[2019-08-10] MEDS ORDERED: IBUP200T45 PO (11:20)
[2019-08-10] MEDS ORDERED: SPIR1CAP INH (11:20)
[2019-08-10] MEDS ORDERED: FIBE625T PO (11:20)
[2019-08-10] MEDS ORDERED: ONDANSETRON 4MG/2ML VIAL (J2405) IV ONE (11:30)
[2019-08-10] MEDS: NS 1,000 ML IV SCH ×2 (11:55→22:07)
[2019-08-10 12:03] LABS: HEMATOCRIT 41.5 % (36.0-47.0); HEMOGLOBIN 13.5 g/dl (12.0-15.5); MEAN CORPUSCULAR HEMOGLOBIN 31.5 pg (27.0-33.0); MEAN CORPUSCULAR HGB CONC 32.5 g/dl (32.0-36.5); PLATELET COUNT, AUTOMATED 373 10^3/uL (150-450); RED BLOOD COUNT 4.28 10^6/uL (4.00-5.40); WHITE BLOOD COUNT 12.4 10^3/uL (4.0-10.0)
[2019-08-10] MEDS ORDERED: ISOVUE-370 76% 100ML VIAL (Q9967) As Ordered ONE (12:20)
[2019-08-10 12:37] LABS: ATYPICAL LYMPH 1 % (0-5); LYMPHOCYTES 4 % (16-44); NEUTROPHILS 93 % (28-66); PLATELET ESTIMATE NORMAL (NORMAL)
[2019-08-10 13:36] LABS: ALBUMIN 2.8 GM/DL (3.2-5.2); BILIRUBIN,DIRECT 0.1 MG/DL (0.0-0.2); BILIRUBIN,TOTAL 0.4 MG/DL (0.2-1.0); TOTAL PROTEIN 6.7 GM/DL (6.4-8.2)
[2019-08-10] MEDS ORDERED: cefTRIAXone SOD 2 GM in D5W MINI-BAG PLUS 50 ML IV ONE (13:45)
[2019-08-10] MEDS ORDERED: ACETAMINOPHEN 325 MG TAB PO ONE (13:45)
[2019-08-10] MEDS ORDERED: FLEET ENEMA PR PRN (13:45)
--- NOTE | 2019-08-10 13:50 | REP ---
CT ABDOMEN AND PELVIS WITH IV CONTRAST: TECHNIQUE: Axial contrast enhanced images from the lung bases to the pubic symphysis using 100 mL Isovue 370 intravenous contrast material with multiplanar reformations. Visualized lung bases demonstrate fibroatelectatic change. Liver is mildly enlarged and contains tiny calcifications compatible with calcified granulomas. There are also severe calcified granulomas of the spleen. Adrenals and pancreas are unremarkable. Gallbladder is grossly unremarkable. Scattered tiny cysts are seen throughout the left kidney without hydronephrosis. Punctate calcification is seen inferiorly in the left kidney. Right kidney again demonstrates moderate to mildly severe hydronephrosis unchanged from the prior exam. There are dependent calcifications again seen in the lower pole collecting system. A right ureteral stent is seen. The proximal end is in the very proximal right ureter. The distal end is in the urinary bladder. Urinary bladder is mildly distended and not well evaluated. There is no abdominal aortic aneurysm. There is no adenopathy. There is no free air or free fluid. I see no bowel wall thickening. I see no pelvic mass. There are degenerative changes of the spine. Note is made of seven ingested metallic foreign bodies throughout the colon. The largest measured 2 cm in length and 4 mm in thickness. There are two in the region of the cecum, three in the more superior aspect of the right colon, one in the transverse colon, and one in the rectosigmoid colon. These are of uncertain significance. IMPRESSION: Seven linear metallic ingested foreign bodies scattered throughout the colon. No bowel wall thickening. No free air or free fluid. Moderately severe right hydronephrosis appears similar to prior study of 06/10/2018. Right ureteral stent is again noted in place, unchanged in position as discussed above. Electronically Signed by Donny Peña MD 08/10/2019 05:38 P
[2019-08-10] MEDS: MIRALAX *UNIT DOSE* 17GM PACKET PO SCH (15:01)
[2019-08-10] MEDS ORDERED: HM S0.65 NARES (15:53)
[2019-08-10] MEDS ORDERED: SUMA25TA3 PO (15:53)
[2019-08-10] MEDS ORDERED: ACAM0.05 PO (15:53)
--- NOTE | 2019-08-10 16:36 | HPEPDOC ---
[facility] Medical History & Physical Date of Admission Aug 10, 2019 Date of Service: Aug 10, 2019 History and Physical CHIEF COMPLAINT: Abdominal discomfort HISTORY OF PRESENT ILLNESS: Patient is a 64F with PMH Traumatic brain injury, chronic ureteral stricture, DM, HLD, hypoparathyroidism presented to the ER with reportedly abdominal discomfort. She reportedly has had Colonoscopy with Dr. Ricardo with polyp resection and clips placement, noted on CT scan. Also noted to have moderate/severe R. hydronephrosis similar to previous study. UA with evidence of UTI and patient is requested to be admitted for pyelonephritis in the ER. Patient reports mild periumbilical discomfort but otherwise does not report any other symptoms including fever, chills, nausea, vomiting. Noted to be constipated and has not had a bowel movement since her colonoscopy on Wednesday. She is getting fleet enema in ER now. PAST MEDICAL HISTORY: Refer to [facility] PAST SURGICAL HISTORY: Traumatic brain injury s/p surgery 2004 Tubal ligation Ovarian cystectomy SOCIAL HISTORY: Former smoker and alcohol abuse. Denies drug use. FAMILY HISTORY: Sister from lung cancer ALLERGIES: Please see below. REVIEW OF SYSTEMS: 10 point review of system negative except as stated in HPI HOME MEDICATIONS: Please see below. PHYSICAL EXAMINATION: General: No acute distress, Alert, facial asymmetry with tongue protrusion. Eyes: Normal sclera, EOMI HENT: Atraumatic, neck supple, moist mucous membranes Cardiovascular: Normal rate, normal rhythm. Pulmonary: Clear to auscultation b/l, no wheezing GI: Soft, nondistended, mild generalized tenderness Skin: Warm and dry Neuro: CN grossly intact. Facial asymmetry with tongue protrusion. LABORATORY DATA: See below. IMAGING: CT Abdomen/Pelvis- IMPRESSION: Seven linear metallic ingested foreign bodies scattered throughout the colon. No bowel wall thickening. No free air or free fluid. Moderately severe right hydronephrosis appears similar to prior study of 06/10/2018. Right ureteral stent is again noted in place, unchanged in position as discussed above. MICROBIOLOGY: Please see below. ASSESSMENT AND PLAN: 1. Suspected Pyelonephritis - UA + LE and WBCs. In setting of chronic ureteral stricture. - f/u Urine culture, blood cultures. - c/w Rocephin. 2. 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 3. DM - Hold metformin and Tradjenta, ISS and low dose levemir for now. - ISS. 4. HLD - resume home meds. Code status: Full code Vital Signs Vital Signs Date Time Temp Pulse Resp B/P (MAP) Pulse Ox O2 Delivery O2 Flow Rate FiO2 08/10/19 16:00 98.5 73 08/10/19 15:45 115/66 (82) 92 Room Air 08/10/19 15:30 2.0 08/10/19 13:40 21 Laboratory Data Labs 24H Laboratory Tests 2 08/10/19 11:40: Nucleated Red Blood Cells % (auto) 0.0, Neutrophils 93H, Band Neutrophils 2, Lymphocytes (Manual) 4L, Atypical Lymphocytes 1, Platelet Estimate NORMAL, Red Blood Cell Morphology NORMAL, Lactic Acid Level 1.8, Aspartate Amino Transf (AST/SGOT) 12, Alanine Aminotransferase (ALT/SGPT) 24, Alkaline Phosphatase 89, Total Bilirubin 0.4, Direct Bilirubin 0.1, Total Protein 6.7, Albumin 2.8L, Albumin/Globulin Ratio 0.72L, Lipase 127 08/10/19 11:44: POC Glucose (Misc Panel) 255H, POC Sodium (Misc Panel) 135L, POC Potassium (Misc Panel) 3.9, POC Chloride (Misc Panel) 99, POC Total CO2 (Misc Panel) 28.0H, POC Blood Urea Nitrogen (Misc Panel 24, POC Ionized Calcium (Misc Panel) 4.7, POC Creatinine (Misc Panel) 0.5L, POC Hematocrit (Misc Panel) 43.0 08/10/19 12:43: Urine Color YELLOW, Urine Appearance CLOUDYH, Urine pH 6.0, Urine Specific [place] 1.025, Urine Protein 3+H, Urine Glucose (UA) 3+H, Urine Ketones NEGATIVE, Urine Blood 2+H, Urine Nitrite NEGATIVE, Urine Bilirubin NEGATIVE, Urine Urobilinogen 0.2, Urine Leukocyte Esterase 3+H, Urine WBC (Auto) TNTCH, Urine RBC (Auto) 17H, Urine Hyaline Casts (Auto) 0, Urine Bacteria (Auto) 1+H, Urine Squamous Epithelial Cells 0, Urine Mucus (Auto) SMALL, Urine Sperm (Auto) CBC/BMP Laboratory Tests 08/10/19 11:40 Red Blood Count 4.28, Mean Corpuscular Volume 97.0 H, Mean Corpuscular Hemoglobin 31.5, Mean Corpuscular Hemoglobin Concent 32.5, Red Cell Distribution Width 13.2 Microbiology Microbiology 08/10/19 Blood Culture, Received Pending 08/10/19 Blood Culture, Received Pending 08/10/19 Urine Culture, Received Pending Home Medications Scheduled Acamprosate Calcium (Acamprosate Calcium) 333 Mg Tab, 333 MG PO BID AM/HS Acamprosate Calcium (Acamprosate Calcium) 333 Mg Tablet.dr, 666 MG PO DAILY TAKES AT 1400 Alendronate Sodium (Fosamax) 70 Mg Tab, 70 MG PO QWEEK SATURDAYS Bupropion HCl (Wellbutrin Sr) 100 Mg Tab.sr.12h, 100 MG PO BID Calcium Polycarbophil (Fibercon) 625 Mg Tablet, 625 MG PO BID Carbamide Peroxide (Debrox) 6.5 % Cami, 3 DROP AU ASDIRECTED 3 TIMES MONTHLY Cetirizine HCl (Cetirizine HCl) 10 Mg Tablet, 10 MG PO DAILY Esomeprazole Magnesium (Nexium) 40 Mg Cap, 40 MG PO DAILY Fenofibrate Nanocrystallized (Fenofibrate) 48 Mg Tab, 48 MG PO DAILY Fluticasone Propionate (Flonase Allergy Relief) 50 Mcg/Act Spr, 2 SPRAY NA QHS Lamotrigine (Lamictal) 200 Mg Tab, 200 MG PO QHS Linagliptin (Tradjenta) 5 Mg Tab, 5 MG PO DAILY Magnesium Oxide (Magnesium Oxide) 400 Mg Tablet, 800 MG PO BID Metformin HCl (Metformin HCl) 1,000 Mg Tab, 1,000 MG PO BID Multivitamins (Thera M Plus Tablet) 1 Tab Tab, 1 TAB PO DAILY Quetiapine Fumarate (Quetiapine Fumarate) 50 Mg Tab, 50 MG PO QHS Sertraline Hcl (Zoloft) 100 Mg Tab, 100 MG PO DAILY Simvastatin (Zocor) 40 Mg Tablet, 40 MG PO DAILY Tiotropium [place] (Spiriva) 18 Mcg Cap.w.dev, 18 MCG INH DAILY Scheduled PRN Acetaminophen (Acetaminophen) 325 Mg Tab, 650 MG PO for PAIN OR FEVER Ibuprofen (Ibu-200) 200 Mg Tablet, 400 MG PO QID PRN for FEVER Sodium Chloride (Saline Nasal [place]) 44 Ml [place], 1 SPRAY NARES QID PRN for NASAL DRYNESS Sumatriptan Succinate (Sumatriptan Succinate) 25 Mg Tablet, 25 MG PO for MIGRAINE Allergies Coded Allergies: procaine (Verified Allergy, Intermediate, Hives, 07/20/19) A-FIB/CHADSVASC A-FIB History Current/History of A-Fib/PAF?: No MANUEL SAMUEL MD Aug 10, 2019 16:36
[2019-08-10] MEDS ORDERED: INCR1INH INH (16:50)
[2019-08-10] MEDS ORDERED: MIRA3350 PO (16:50)
[2019-08-10] MEDS ORDERED: FERR1TAB8 PO (16:50)
[2019-08-10] MEDS ORDERED: FARX1TAB3 PO (16:50)
[2019-08-10] MEDS ORDERED: LINZ145C PO (16:50)
[2019-08-10] MEDS ORDERED: BYDU1INJ SC (16:50)
[2019-08-10 17:00] VITALS: BP 116/59
[2019-08-10] MEDS: ACETAMINOPHEN 325 MG TAB PO PRN (17:59)
[2019-08-10] MEDS ORDERED: ACAMPROSATE CALCIUM 333 MG TABLET (CAMPRAL) PO SCH (21:00)
[2019-08-10] MEDS: QUEtiapine FUMARATE 50 MG TAB PO SCH (21:11)
[2019-08-10] MEDS: lamoTRIgine 100MG TAB PO SCH (21:11)
[2019-08-10] MEDS: buPROPion (WELLBUTRIN SR) 100 MG SR TAB PO SCH (21:11)
[2019-08-10] MEDS: CETIRIZINE (ZyrTEC) 10 MG TAB PO SCH (21:11)
[2019-08-10] MEDS: ACAMPROSATE CALCIUM 333 MG TABLET (CAMPRAL) PO SCH (21:12)
[2019-08-10] MEDS: FLUTICASONE PROP 0.05% NASAL SPRAY 16 GM (FLONASE) SCH (21:13)
[2019-08-10] MEDS: HEPARIN SOD (PORCINE) 5000 UNITS/ML VIAL SC SCH (21:13)
--- NOTE | 2019-08-10 21:39 | ECGEPIP ---
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
[2019-08-10 22:00] VITALS: BP 121/66
[2019-08-10] MEDS ORDERED: GLUCOSE 4 GM CHEW TABLET PO PRN (22:00)
[2019-08-10] MEDS ORDERED: DEXTROSE 50% 50 ML SYRINGE IV PRN (22:00)
[2019-08-10] MEDS ORDERED: GLUCAGON FOR INJ 1 MG VIAL (J1610) SC PRN (22:00)
[2019-08-10] MEDS: SUMAtriptan SUCCINATE 25 MG TAB PO PRN (22:06)
[2019-08-10] MEDS: HumaLOG INSULIN (NovoLOG) PER UNIT SC SCH (22:35)
[2019-08-11] MEDS: SUMAtriptan SUCCINATE 25 MG TAB PO PRN (05:36)
[2019-08-11 06:00] VITALS: BP 153/84
[2019-08-11 06:48] LABS: HEMATOCRIT 36.6 % (36.0-47.0); HEMOGLOBIN 11.9 g/dl (12.0-15.5); MEAN CORPUSCULAR HEMOGLOBIN 31.3 pg (27.0-33.0); MEAN CORPUSCULAR HGB CONC 32.5 g/dl (32.0-36.5); MEAN CORPUSCULAR VOLUME 96.3 fl (80.0-96.0); PLATELET COUNT, AUTOMATED 340 10^3/uL (150-450); WHITE BLOOD COUNT 9.6 10^3/uL (4.0-10.0)
[2019-08-11 07:10] LABS: BLOOD UREA NITROGEN 17 MG/DL (7-18); CALCIUM LEVEL 8.7 MG/DL (8.8-10.2); CARBON DIOXIDE LEVEL 29 MEQ/L (21-32); CHLORIDE LEVEL 101 MEQ/L (98-107); CREATININE FOR GFR 0.57 MG/DL (0.55-1.30); GLOMERULAR FILTRATION RATE > 60.0 (>45); GLUCOSE, FASTING 222 MG/DL (70-100); POTASSIUM SERUM 3.5 MEQ/L (3.5-5.1); SODIUM LEVEL 138 MEQ/L (136-145)
[2019-08-11] MEDS ORDERED: HumaLOG INSULIN (NovoLOG) PER UNIT SC SCH (07:30)
[2019-08-11] MEDS: TIOTROPIUM INHALER/CAPSULE (SPIRIVA) INH SCH (08:43)
[2019-08-11] MEDS: NS 1,000 ML IV SCH ×2 (09:02→17:28)
[2019-08-11] MEDS: SIMVASTATIN 40 MG TAB PO SCH (09:03)
[2019-08-11] MEDS: PANTOPRAZOLE 40MG TAB (PROTONIX) PO SCH (09:03)
[2019-08-11] MEDS: MIRALAX *UNIT DOSE* 17GM PACKET PO SCH (09:03)
[2019-08-11] MEDS: FENOFIBRATE 48 MG TAB (TRICOR) PO SCH (09:03)
[2019-08-11] MEDS: SERTRALINE 100 MG TAB PO SCH (09:03)
[2019-08-11] MEDS: MULTIVITAMINS/MINERALS THERAP 1 TAB PO SCH (09:03)
[2019-08-11] MEDS: buPROPion (WELLBUTRIN SR) 100 MG SR TAB PO SCH ×2 (09:03→21:16)
[2019-08-11] MEDS: ACAMPROSATE CALCIUM 333 MG TABLET (CAMPRAL) PO SCH ×2 (09:03→21:17)
[2019-08-11] MEDS: HEPARIN SOD (PORCINE) 5000 UNITS/ML VIAL SC SCH ×2 (09:03→21:16)
[2019-08-11] MEDS: HumaLOG INSULIN (NovoLOG) PER UNIT SC SCH ×4 (09:04→21:26)
[2019-08-11 10:00] VITALS: BP 130/69
[2019-08-11 14:00] VITALS: BP 123/61
[2019-08-11] MEDS: cefTRIAXone SOD 2 GM in D5W MINI-BAG PLUS 50 ML IV SCH (15:34)
--- NOTE | 2019-08-11 17:26 | IPNPDOC ---
Date Seen The patient was seen on 08/11/19. Progress Note SUBJECTIVE: Patient reported feeling fine but still have some vague abdominal discomfort. Remained afebrile overnight. WBC 12->9. BS elevated 200-300s. OBJECTIVE PHYSICAL EXAMINATION: General: No acute distress, Alert, facial asymmetry with tongue protrusion. Eyes: Normal sclera, EOMI HENT: Atraumatic, neck supple, moist mucous membranes Cardiovascular: Normal rate, normal rhythm. Pulmonary: Clear to auscultation b/l, no wheezing GI: Soft, nondistended, mild periumbilical tenderness Skin: Warm and dry Neuro: CN grossly intact. Facial asymmetry with tongue protrusion. LABORATORY DATA, IMAGING STUDIES, MICROBIOLOGY: Please see below. MICROBIOLOGY: Please see below. ASSESSMENT AND PLAN: 1. Suspected Pyelonephritis - UA + LE and WBCs. In setting of chronic ureteral stricture. - f/u Urine culture, blood cultures. - c/w Rocephin. 2. 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 3. DM - Hold metformin and Tradjenta, ISS and low dose levemir for now. - ISS. 4. HLD - resume home meds. Code status: Full code VS, I&O, 24H, Fishbone Vital Signs/I&O Vital Signs Date Time Temp Pulse Resp B/P (MAP) Pulse Ox O2 Delivery O2 Flow Rate FiO2 08/11/19 10:00 98.0 82 18 130/69 (89) 99 08/10/19 15:45 Room Air 08/10/19 15:30 2.0 I&O- Last 24 Hours up to 6 AM 08/11/19 06:00 Intake Total 2880 ml Output Total 375 ml Balance 2505 ml Laboratory Data 24H LABS Laboratory Tests 2 08/10/19 20:42: Bedside Glucose (Misc Panel) 370H 08/11/19 05:21: Nucleated Red Blood Cells % (auto) 0.0, Anion Gap 8, Glomerular Filtration Rate > 60.0, Blood Urea Nitrogen 17, Creatinine 0.57, Sodium Level 138, Potassium Level 3.5, Chloride Level 101, Carbon Dioxide Level 29, Calcium Level 8.7L 08/11/19 07:52: Bedside Glucose (Misc Panel) 260H 08/11/19 11:49: Bedside Glucose (Misc Panel) 358H CBC/BMP Laboratory Tests 08/11/19 05:21 Red Blood Count 3.80 L, Mean Corpuscular Volume 96.3 H, Mean Corpuscular Hemoglobin 31.3, Mean Corpuscular Hemoglobin Concent 32.5, Red Cell Distribution Width 13.3, Calcium Level 8.7 L Microbiology Microbiology 08/10/19 Blood Culture - Preliminary, Resulted No growth after 24 hours . All specim... 08/10/19 Blood Culture - Preliminary, Resulted No growth after 24 hours . All specim... 08/10/19 Urine Culture, Received Pending MANUEL SAMUEL MD Aug 11, 2019 17:26
[2019-08-11] MEDS ORDERED: LEVEMIR (INSULIN DETEMIR) 1 UNITS/0.01ML SC SCH ×2 (17:30)
[2019-08-11] MEDS: QUEtiapine FUMARATE 50 MG TAB PO SCH (21:16)
[2019-08-11] MEDS: FLUTICASONE PROP 0.05% NASAL SPRAY 16 GM (FLONASE) SCH (21:17)
[2019-08-11] MEDS: CETIRIZINE (ZyrTEC) 10 MG TAB PO SCH (21:17)
[2019-08-11] MEDS: lamoTRIgine 100MG TAB PO SCH (21:26)
[2019-08-11] MEDS: ACETAMINOPHEN 325 MG TAB PO PRN (21:45)
[2019-08-11 22:00] VITALS: BP 128/73
[2019-08-12] MEDS: SUMAtriptan SUCCINATE 25 MG TAB PO PRN (00:47)
[2019-08-12] MEDS: NS 1,000 ML IV SCH ×3 (02:42→23:37)
[2019-08-12 06:00] VITALS: BP 131/66
[2019-08-12 06:46] LABS: HEMATOCRIT 36.2 % (36.0-47.0); HEMOGLOBIN 11.5 g/dl (12.0-15.5); MEAN CORPUSCULAR HEMOGLOBIN 30.9 pg (27.0-33.0); MEAN CORPUSCULAR HGB CONC 31.8 g/dl (32.0-36.5); MEAN CORPUSCULAR VOLUME 97.3 fl (80.0-96.0); PLATELET COUNT, AUTOMATED 320 10^3/uL (150-450); RED BLOOD COUNT 3.72 10^6/uL (4.00-5.40); WHITE BLOOD COUNT 6.1 10^3/uL (4.0-10.0)
[2019-08-12 07:07] LABS: BLOOD UREA NITROGEN 13 MG/DL (7-18); CALCIUM LEVEL 8.7 MG/DL (8.8-10.2); CARBON DIOXIDE LEVEL 29 MEQ/L (21-32); CHLORIDE LEVEL 107 MEQ/L (98-107); GLOMERULAR FILTRATION RATE > 60.0 (>45); GLUCOSE, FASTING 171 MG/DL (70-100); POTASSIUM SERUM 3.6 MEQ/L (3.5-5.1); SODIUM LEVEL 143 MEQ/L (136-145)
[2019-08-12] MEDS: TIOTROPIUM INHALER/CAPSULE (SPIRIVA) INH SCH (08:06)
[2019-08-12] MEDS: HumaLOG INSULIN (NovoLOG) PER UNIT SC SCH ×4 (08:24→21:22)
[2019-08-12] MEDS: HEPARIN SOD (PORCINE) 5000 UNITS/ML VIAL SC SCH ×2 (08:25→21:21)
[2019-08-12] MEDS: MULTIVITAMINS/MINERALS THERAP 1 TAB PO SCH (08:25)
[2019-08-12] MEDS: SERTRALINE 100 MG TAB PO SCH (08:25)
[2019-08-12] MEDS: PANTOPRAZOLE 40MG TAB (PROTONIX) PO SCH (08:25)
[2019-08-12] MEDS: ACETAMINOPHEN 325 MG TAB PO PRN (08:25)
[2019-08-12] MEDS: MIRALAX *UNIT DOSE* 17GM PACKET PO SCH (08:25)
[2019-08-12] MEDS: ACAMPROSATE CALCIUM 333 MG TABLET (CAMPRAL) PO SCH ×2 (08:26→21:20)
[2019-08-12] MEDS: buPROPion (WELLBUTRIN SR) 100 MG SR TAB PO SCH ×2 (08:26→21:20)
[2019-08-12] MEDS: SIMVASTATIN 40 MG TAB PO SCH (08:26)
[2019-08-12] MEDS: FENOFIBRATE 48 MG TAB (TRICOR) PO SCH (08:26)
[2019-08-12] MEDS ORDERED: FLUBLOK(EGG FREE)(QUAD)INFLUENZA VACC 0.5ML SYRINGE (90682)18YRS&OLDER IM ONE (09:00)
[2019-08-12] MEDS ORDERED: LEVEMIR (INSULIN DETEMIR) 1 UNITS/0.01ML SC ONE (09:00)
[2019-08-12 14:00] VITALS: BP 111/57
[2019-08-12] MEDS: cefTRIAXone SOD 2 GM in D5W MINI-BAG PLUS 50 ML IV SCH (15:55)
--- NOTE | 2019-08-12 18:00 | IPNPDOC ---
Date Seen The patient was seen on 08/12/19. Progress Note SUBJECTIVE: Patient states she feels ok with some abdominal discomfort with very mild R. CVA tenderness. Otherwise afebrile overnight. WBC 6.1 BS elevated 300-400s. Received extra 10 units of Levemir in AM. OBJECTIVE PHYSICAL EXAMINATION: General: No acute distress, Alert, facial asymmetry with tongue protrusion. Eyes: Normal sclera, EOMI HENT: Atraumatic, neck supple, moist mucous membranes Cardiovascular: Normal rate, normal rhythm. Pulmonary: Clear to auscultation b/l, no wheezing GI: Soft, nondistended, mild periumbilical tenderness Skin: Warm and dry Neuro: CN grossly intact. Facial asymmetry with tongue protrusion. LABORATORY DATA, IMAGING STUDIES, MICROBIOLOGY: Please see below. MICROBIOLOGY: Please see below. ASSESSMENT AND PLAN: 1. Pyelonephritis - UA + LE and WBCs. In setting of chronic ureteral stricture. - Urine culture + E. coli. resistant to fluoroquinolone and bactrim. - c/w Rocephin for now. Blood culture negative to date. 2. 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 3. DM - Hold metformin and Tradjenta, ISS and low levemir for now. Adjust as needed. - Increased from 20 to 30 units today. - ISS. 4. HLD - resume home meds. Code status: Full code VS, I&O, 24H, Fishbone Vital Signs/I&O Vital Signs Date Time Temp Pulse Resp B/P (MAP) Pulse Ox O2 Delivery O2 Flow Rate FiO2 08/12/19 14:00 98.6 65 20 111/57 (75) 94 08/10/19 15:45 Room Air 08/10/19 15:30 2.0 I&O- Last 24 Hours up to 6 AM 08/12/19 06:00 Intake Total 5180 ml Output Total 2250 ml Balance 2930 ml Laboratory Data 24H LABS Laboratory Tests 2 08/11/19 21:18: Bedside Glucose (Misc Panel) 310H 08/12/19 06:27: Nucleated Red Blood Cells % (auto) 0.0, Anion Gap 7L, Glomerular Filtration Rate > 60.0, Blood Urea Nitrogen 13, Creatinine 0.50L, Sodium Level 143, Potassium Level 3.6, Chloride Level 107, Carbon Dioxide Level 29, Calcium Level 8.7L 08/12/19 11:50: Bedside Glucose (Misc Panel) 233H 08/12/19 16:36: Bedside Glucose (Misc Panel) 249H CBC/BMP Laboratory Tests 08/12/19 06:27 Red Blood Count 3.72 L, Mean Corpuscular Volume 97.3 H, Mean Corpuscular Hemoglobin 30.9, Mean Corpuscular Hemoglobin Concent 31.8 L, Red Cell Distribution Width 13.2, Calcium Level 8.7 L Microbiology Microbiology 08/10/19 Blood Culture - Preliminary, Resulted No Growth after 48 hours. All Specime... 08/10/19 Blood Culture - Preliminary, Resulted No Growth after 48 hours. All Specime... 08/10/19 Urine Culture - Final, Complete Escherichia Coli MANUEL SAMUEL MD Aug 12, 2019 18:00
[2019-08-12] MEDS ORDERED: LEVEMIR (INSULIN DETEMIR) 1 UNITS/0.01ML SC SCH (21:00)
[2019-08-12] MEDS: QUEtiapine FUMARATE 50 MG TAB PO SCH (21:20)
[2019-08-12] MEDS: lamoTRIgine 100MG TAB PO SCH (21:20)
[2019-08-12] MEDS: CETIRIZINE (ZyrTEC) 10 MG TAB PO SCH (21:20)
[2019-08-12] MEDS: FLUTICASONE PROP 0.05% NASAL SPRAY 16 GM (FLONASE) SCH (21:21)
[2019-08-12 22:00] VITALS: BP 140/84
[2019-08-13] MEDS: SUMAtriptan SUCCINATE 25 MG TAB PO PRN (05:05)
[2019-08-13 06:00] VITALS: BP 144/86
[2019-08-13 06:27] LABS: HEMATOCRIT 36.5 % (36.0-47.0); HEMOGLOBIN 11.6 g/dl (12.0-15.5); MEAN CORPUSCULAR HEMOGLOBIN 31.3 pg (27.0-33.0); MEAN CORPUSCULAR HGB CONC 31.8 g/dl (32.0-36.5); MEAN CORPUSCULAR VOLUME 98.4 fl (80.0-96.0); PLATELET COUNT, AUTOMATED 339 10^3/uL (150-450); RED BLOOD COUNT 3.71 10^6/uL (4.00-5.40); WHITE BLOOD COUNT 5.2 10^3/uL (4.0-10.0)
[2019-08-13 06:54] LABS: BLOOD UREA NITROGEN 10 MG/DL (7-18); CALCIUM LEVEL 8.6 MG/DL (8.8-10.2); CARBON DIOXIDE LEVEL 31 MEQ/L (21-32); CHLORIDE LEVEL 106 MEQ/L (98-107); CREATININE FOR GFR 0.47 MG/DL (0.55-1.30); GLOMERULAR FILTRATION RATE > 60.0 (>45); GLUCOSE, FASTING 105 MG/DL (70-100); POTASSIUM SERUM 3.3 MEQ/L (3.5-5.1); SODIUM LEVEL 143 MEQ/L (136-145)
[2019-08-13] MEDS: TIOTROPIUM INHALER/CAPSULE (SPIRIVA) INH SCH (07:52)
[2019-08-13] MEDS ORDERED: POTASSIUM CHLORIDE 10 MEQ SR TABLET PO ONE (08:15)
[2019-08-13] MEDS: HumaLOG INSULIN (NovoLOG) PER UNIT SC SCH ×4 (08:36→20:20)
[2019-08-13] MEDS: MIRALAX *UNIT DOSE* 17GM PACKET PO SCH (08:36)
[2019-08-13] MEDS: HEPARIN SOD (PORCINE) 5000 UNITS/ML VIAL SC SCH ×2 (08:36→20:47)
[2019-08-13] MEDS: MULTIVITAMINS/MINERALS THERAP 1 TAB PO SCH (08:37)
[2019-08-13] MEDS: buPROPion (WELLBUTRIN SR) 100 MG SR TAB PO SCH ×2 (08:37→20:48)
[2019-08-13] MEDS: SIMVASTATIN 40 MG TAB PO SCH (08:38)
[2019-08-13] MEDS: SERTRALINE 100 MG TAB PO SCH (08:38)
[2019-08-13] MEDS: FENOFIBRATE 48 MG TAB (TRICOR) PO SCH (08:38)
[2019-08-13] MEDS: NS 1,000 ML IV SCH ×2 (08:38→19:09)
[2019-08-13] MEDS: ACAMPROSATE CALCIUM 333 MG TABLET (CAMPRAL) PO SCH ×2 (08:38→20:48)
[2019-08-13] MEDS: PANTOPRAZOLE 40MG TAB (PROTONIX) PO SCH (08:38)
[2019-08-13 14:00] VITALS: BP 146/77
--- NOTE | 2019-08-13 14:23 | IPNPDOC ---
Date Seen The patient was seen on 08/13/19. Progress Note SUBJECTIVE: Patient reported improving abdominal discomfort. Minimal today, R. CVA tenderness seem to have resolved. Afebrile overnight. WBC 5.2. OBJECTIVE PHYSICAL EXAMINATION: General: No acute distress, Alert, facial asymmetry with tongue protrusion. Eyes: Normal sclera, EOMI HENT: Atraumatic, neck supple, moist mucous membranes Cardiovascular: Normal rate, normal rhythm. Pulmonary: Clear to auscultation b/l, no wheezing GI: Soft, nondistended, nontender Skin: Warm and dry Neuro: CN grossly intact. Facial asymmetry with tongue protrusion. LABORATORY DATA, IMAGING STUDIES, MICROBIOLOGY: Please see below. MICROBIOLOGY: Please see below. ASSESSMENT AND PLAN: 1. Pyelonephritis - UA + LE and WBCs. In setting of chronic ureteral stricture. - Urine culture + E. coli. resistant to fluoroquinolone and bactrim. - c/w Rocephin for now. Blood culture negative to date. - Symptoms have improved significantly. Likely can be d/c in the next day or two. 2. 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 3. DM - Hold metformin and Tradjenta, ISS and low levemir for now. Adjust as needed. - Increased to 35 units. - ISS. 4. HLD - resume home meds. Code status: Full code VS, I&O, 24H, [facility] Vital Signs/I&O Vital Signs Date Time Temp Pulse Resp B/P (MAP) Pulse Ox O2 Delivery O2 Flow Rate FiO2 08/13/19 06:00 96.9 66 20 144/86 (105) 94 08/10/19 15:45 Room Air 08/10/19 15:30 2.0 I&O- Last 24 Hours up to 6 AM 08/13/19 06:00 Intake Total 3695 ml Output Total 1625 ml Balance 2070 ml Laboratory Data 24H LABS Laboratory Tests 2 08/12/19 16:36: Bedside Glucose (Misc Panel) 249H 08/12/19 20:08: Bedside Glucose (Misc Panel) 259H 08/13/19 05:36: Nucleated Red Blood Cells % (auto) 0.0, Anion Gap 6L, Glomerular Filtration Rate > 60.0, Blood Urea Nitrogen 10, Creatinine 0.47L, Sodium Level 143, Potassium Level 3.3L, Chloride Level 106, Carbon Dioxide Level 31, Calcium Level 8.6L 08/13/19 11:45: Bedside Glucose (Misc Panel) 215H CBC/BMP Laboratory Tests 08/13/19 05:36 Red Blood Count 3.71 L, Mean Corpuscular Volume 98.4 H, Mean Corpuscular Hemoglobin 31.3, Mean Corpuscular Hemoglobin Concent 31.8 L, Red Cell Distribution Width 13.2, Calcium Level 8.6 L Microbiology Microbiology 08/10/19 Blood Culture - Preliminary, Resulted No Growth after 72 hours. All specime... 08/10/19 Blood Culture - Preliminary, Resulted No Growth after 72 hours. All specime... 08/10/19 Urine Culture - Final, Complete Escherichia Coli MANUEL SAMUEL MD Aug 13, 2019 14:23
[2019-08-13] MEDS: cefTRIAXone SOD 2 GM in D5W MINI-BAG PLUS 50 ML IV SCH (15:28)
[2019-08-13] MEDS: CETIRIZINE (ZyrTEC) 10 MG TAB PO SCH (20:47)
[2019-08-13] MEDS: QUEtiapine FUMARATE 50 MG TAB PO SCH (20:47)
[2019-08-13] MEDS: LEVEMIR (INSULIN DETEMIR) 1 UNITS/0.01ML SC SCH (20:47)
[2019-08-13] MEDS: FLUTICASONE PROP 0.05% NASAL SPRAY 16 GM (FLONASE) SCH (20:47)
[2019-08-13] MEDS: lamoTRIgine 100MG TAB PO SCH (20:47)
[2019-08-13 22:00] VITALS: BP 134/81
[2019-08-14] MEDS: NS 1,000 ML IV SCH ×3 (04:26→23:58)
[2019-08-14 06:00] VITALS: BP 127/78
[2019-08-14 06:50] LABS: HEMATOCRIT 37.3 % (36.0-47.0); HEMOGLOBIN 11.8 g/dl (12.0-15.5); MEAN CORPUSCULAR HEMOGLOBIN 30.4 pg (27.0-33.0); MEAN CORPUSCULAR HGB CONC 31.6 g/dl (32.0-36.5); MEAN CORPUSCULAR VOLUME 96.1 fl (80.0-96.0); PLATELET COUNT, AUTOMATED 379 10^3/uL (150-450); RED BLOOD COUNT 3.88 10^6/uL (4.00-5.40); WHITE BLOOD COUNT 5.7 10^3/uL (4.0-10.0)
[2019-08-14 07:15] LABS: BLOOD UREA NITROGEN 8 MG/DL (7-18); CALCIUM LEVEL 8.8 MG/DL (8.8-10.2); CARBON DIOXIDE LEVEL 28 MEQ/L (21-32); CHLORIDE LEVEL 106 MEQ/L (98-107); CREATININE FOR GFR 0.46 MG/DL (0.55-1.30); GLOMERULAR FILTRATION RATE > 60.0 (>45); GLUCOSE, FASTING 115 MG/DL (70-100); POTASSIUM SERUM 3.9 MEQ/L (3.5-5.1); SODIUM LEVEL 142 MEQ/L (136-145)
[2019-08-14] MEDS: buPROPion (WELLBUTRIN SR) 100 MG SR TAB PO SCH ×2 (08:00→20:14)
[2019-08-14] MEDS: FENOFIBRATE 48 MG TAB (TRICOR) PO SCH (08:00)
[2019-08-14] MEDS: HumaLOG INSULIN (NovoLOG) PER UNIT SC SCH ×4 (08:00→20:03)
[2019-08-14] MEDS: PANTOPRAZOLE 40MG TAB (PROTONIX) PO SCH (08:00)
[2019-08-14] MEDS: SIMVASTATIN 40 MG TAB PO SCH (08:00)
[2019-08-14] MEDS: MIRALAX *UNIT DOSE* 17GM PACKET PO SCH (08:01)
[2019-08-14] MEDS: MULTIVITAMINS/MINERALS THERAP 1 TAB PO SCH (08:01)
[2019-08-14] MEDS: ACAMPROSATE CALCIUM 333 MG TABLET (CAMPRAL) PO SCH ×2 (08:05→20:14)
[2019-08-14] MEDS: SERTRALINE 100 MG TAB PO SCH (08:05)
[2019-08-14] MEDS: HEPARIN SOD (PORCINE) 5000 UNITS/ML VIAL SC SCH ×2 (08:06→20:14)
[2019-08-14] MEDS: SUMAtriptan SUCCINATE 25 MG TAB PO PRN (08:20)
[2019-08-14] MEDS: TIOTROPIUM INHALER/CAPSULE (SPIRIVA) INH SCH (08:33)
[2019-08-14 14:00] VITALS: BP 135/84
[2019-08-14] MEDS: cefTRIAXone SOD 2 GM in D5W MINI-BAG PLUS 50 ML IV SCH (14:46)
[2019-08-14] MEDS: ACETAMINOPHEN 325 MG TAB PO PRN ×2 (16:44→22:55)
--- NOTE | 2019-08-14 20:05 | IPNPDOC ---
Text Note Date of Service The patient was seen on 08/14/19. NOTE Subjective: Patient states that she feels well today, no any flank pain. Patient denies fever, chills, nausea, vomiting, shortness of breath, palpitations, diarrhea or dysuria OBJECTIVE PHYSICAL EXAMINATION: General: No acute distress, Alert, facial asymmetry with tongue protrusion. Eyes: Normal sclera, EOMI HENT: Atraumatic, neck supple, moist mucous membranes Cardiovascular: Normal rate, normal rhythm. Pulmonary: Clear to auscultation b/l, no wheezing GI: Soft, nondistended, nontender Skin: Warm and dry Neuro: CN grossly intact. Facial asymmetry with tongue protrusion. Patient is 64 years old female with past history of diabetes, hyperlipidemia, traumatic brain injury presented hospital with acute pyelonephritis secondary to chronic ureteral stricture. 1. Pyelonephritis Await finalization of blood culture Continue treatment with Rocephin . 2. 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 3. DM -Insulin sliding scale in top of detemir I added 10 units of detemir qam Diabetes diet 4. HLD - resume home meds. VS,Fishbone, I+O VS, Fishbone, I+O Laboratory Tests 08/14/19 06:30 Red Blood Count 3.88 L, Mean Corpuscular Volume 96.1 H, Mean Corpuscular Hemoglobin 30.4, Mean Corpuscular Hemoglobin Concent 31.6 L, Red Cell Distribution Width 13.2, Calcium Level 8.8 Vital Signs Date Time Temp Pulse Resp B/P (MAP) Pulse Ox O2 Delivery O2 Flow Rate FiO2 08/14/19 14:00 97.7 70 17 135/84 (101) 97 08/10/19 15:45 Room Air 08/10/19 15:30 2.0 I&O- Last 24 Hours up to 6 AM 08/14/19 06:00 Intake Total 5700 ml Output Total 5225 ml Balance 475 ml PATRICIA TALLEY DO Aug 14, 2019 20:05
[2019-08-14] MEDS: FLUTICASONE PROP 0.05% NASAL SPRAY 16 GM (FLONASE) SCH (20:13)
[2019-08-14] MEDS: LEVEMIR (INSULIN DETEMIR) 1 UNITS/0.01ML SC SCH (20:13)
[2019-08-14] MEDS: lamoTRIgine 100MG TAB PO SCH (20:14)
[2019-08-14] MEDS: QUEtiapine FUMARATE 50 MG TAB PO SCH (20:14)
[2019-08-14] MEDS: CETIRIZINE (ZyrTEC) 10 MG TAB PO SCH (20:14)
[2019-08-14 22:00] VITALS: BP 131/85
[2019-08-15 06:00] VITALS: BP 154/90
[2019-08-15 06:36] LABS: HEMATOCRIT 39.7 % (36.0-47.0); HEMOGLOBIN 12.7 g/dl (12.0-15.5); MEAN CORPUSCULAR HEMOGLOBIN 31.5 pg (27.0-33.0); MEAN CORPUSCULAR VOLUME 98.5 fl (80.0-96.0); PLATELET COUNT, AUTOMATED 386 10^3/uL (150-450); RED BLOOD COUNT 4.03 10^6/uL (4.00-5.40); WHITE BLOOD COUNT 8.7 10^3/uL (4.0-10.0)
[2019-08-15 07:00] LABS: BLOOD UREA NITROGEN 9 MG/DL (7-18); CALCIUM LEVEL 9.3 MG/DL (8.8-10.2); CARBON DIOXIDE LEVEL 31 MEQ/L (21-32); CHLORIDE LEVEL 105 MEQ/L (98-107); CREATININE FOR GFR 0.51 MG/DL (0.55-1.30); GLOMERULAR FILTRATION RATE > 60.0 (>45); GLUCOSE, FASTING 120 MG/DL (70-100); SODIUM LEVEL 142 MEQ/L (136-145)
[2019-08-15 08:00] VITALS: BP 132/78
[2019-08-15] MEDS: TIOTROPIUM INHALER/CAPSULE (SPIRIVA) INH SCH (08:27)
[2019-08-15] MEDS ORDERED: LEVEMIR (INSULIN DETEMIR) 1 UNITS/0.01ML SC SCH (09:00)
[2019-08-15] MEDS: FENOFIBRATE 48 MG TAB (TRICOR) PO SCH (09:03)
[2019-08-15] MEDS: ACAMPROSATE CALCIUM 333 MG TABLET (CAMPRAL) PO SCH (09:03)
[2019-08-15] MEDS: buPROPion (WELLBUTRIN SR) 100 MG SR TAB PO SCH (09:03)
[2019-08-15] MEDS: SERTRALINE 100 MG TAB PO SCH (09:03)
[2019-08-15] MEDS: PANTOPRAZOLE 40MG TAB (PROTONIX) PO SCH (09:04)
[2019-08-15] MEDS: MIRALAX *UNIT DOSE* 17GM PACKET PO SCH (09:04)
[2019-08-15] MEDS: SIMVASTATIN 40 MG TAB PO SCH (09:04)
[2019-08-15] MEDS: MULTIVITAMINS/MINERALS THERAP 1 TAB PO SCH (09:04)
[2019-08-15] MEDS: HumaLOG INSULIN (NovoLOG) PER UNIT SC SCH ×2 (09:05→12:00)
[2019-08-15] MEDS: HEPARIN SOD (PORCINE) 5000 UNITS/ML VIAL SC SCH (09:07)
[2019-08-15] MEDS ORDERED: NITR-67 PO (12:30)
[2019-08-15 14:00] VITALS: BP_SYST 132; BP_SYST 146; BP_DIAS 78; BP_DIAS 84
--- NOTE | 2019-08-15 22:11 | DS.PDOC ---
Discharge Summary General Date of Admission Aug 10, 2019 at 16:22 Date of Discharge 08/15/19 Attending Physician: PATRICIA TALLEY DO Discharge Summary PROCEDURES PERFORMED DURING STAY: None. ADMITTING DIAGNOSES: 1. Pyelonephritis 2. Traumatic brain injury 3. DM 4. HLD DISCHARGE DIAGNOSES: 1. Pyelonephritis 2. Traumatic brain injury 3. DM 4. HLD COMPLICATIONS/CHIEF COMPLAINT: Pyelonephritis,Uti. HISTORY OF PRESENT ILLNESS: Patient is a 64F with PMH Traumatic brain injury, chronic ureteral stricture, DM, HLD, hypoparathyroidism presented to the ER with reportedly abdominal discomfort. She reportedly has had Colonoscopy with Dr. Ricardo with polyp resection and clips placement, noted on CT scan. Also noted to have moderate/severe R. hydronephrosis similar to previous study. UA with evidence of UTI and patient is requested to be admitted for pyelonephritis in the ER. Patient reports mild periumbilical discomfort but otherwise does not report any other symptoms including fever, chills, nausea, vomiting. Noted to be constipated and has not had a bowel movement since her colonoscopy on Wednesday. HOSPITAL COURSE: During hospital course the following issues were addressed 1. Pyelonephritis Urine culture positive for Escherichia coli sensitive to nitrofurantoin, which was prescribed as outpatient antibiotic for 10 days Patient received treatment with Rocephin in the hospital settings . 2. 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 3. DM -Insulin sliding scale in top of detemir Diabetes diet 4. HLD - resume home meds. DISCHARGE MEDICATIONS: Please see below. ALLERGIES: Please see below. PHYSICAL EXAMINATION ON DISCHARGE: General: No acute distress, Alert, facial asymmetry with tongue protrusion. Eyes: Normal sclera, EOMI HENT: Atraumatic, neck supple, moist mucous membranes Cardiovascular: Normal rate, normal rhythm. Pulmonary: Clear to auscultation b/l, no wheezing GI: Soft, nondistended, nontender Skin: Warm and dry Neuro: CN grossly intact. Facial asymmetry with tongue protrusion. LABORATORY DATA: Please see below. IMAGING: CT ABDOMEN AND PELVIS WITH IV CONTRAST: TECHNIQUE: Axial contrast enhanced images from the lung bases to the pubic symphysis using 100 mL Isovue 370 intravenous contrast material with multiplanar reformations. Visualized lung bases demonstrate fibroatelectatic change. Liver is mildly enlarged and contains tiny calcifications compatible with calcified granulomas. There are also severe calcified granulomas of the spleen. Adrenals and pancreas are unremarkable. Gallbladder is grossly unremarkable. Scattered tiny cysts are seen throughout the left kidney without hydronephrosis. Punctate calcification is seen inferiorly in the left kidney. Right kidney again demonstrates moderate to mildly severe hydronephrosis unchanged from the prior exam. There are dependent calcifications again seen in the lower pole collecting system. A right ureteral stent is seen. The proximal end is in the very proximal right ureter. The distal end is in the urinary bladder. Urinary bladder is mildly distended and not well evaluated. There is no abdominal aortic aneurysm. There is no adenopathy. There is no free air or free fluid. I see no bowel wall thickening. I see no pelvic mass. There are degenerative changes of the spine. Note is made of seven ingested metallic foreign bodies throughout the colon. The largest measured 2 cm in length and 4 mm in thickness. There are two in the region of the cecum, three in the more superior aspect of the right colon, one in the transverse colon, and one in the rectosigmoid colon. These are of uncertain significance. IMPRESSION: Seven linear metallic ingested foreign bodies scattered throughout the colon. No bowel wall thickening. No free air or free fluid. Moderately severe right hydronephrosis appears similar to prior study of 06/10/2018. Right ureteral stent is again noted in place, unchanged in position as discussed above. PROGNOSIS: Favorable ACTIVITY: As tolerated DIET: Diabetes diet DISCHARGE PLAN: [facility] DISPOSITION: Home, Self-Care. DISCHARGE INSTRUCTIONS: Continue prescribed nitrofurantoin for 10 days ITEMS TO FOLLOWUP ON ON OUTPATIENT: Follow-up with PCP in one week DISCHARGE CONDITION: Stable TIME SPENT ON DISCHARGE: Greater than 20 minutes. Vital Signs/I&Os Vital Signs Date Time Temp Pulse Resp B/P (MAP) Pulse Ox O2 Delivery O2 Flow Rate FiO2 08/15/19 14:00 98.3 78 17 132/84 (100) 97 08/10/19 15:45 Room Air 08/10/19 15:30 2.0 I&O- Last 24 Hours up to 6 AM 08/15/19 05:59 Intake Total 4206 ml Output Total 3500 ml Balance 706 ml Laboratory Data Labs 24H Laboratory Tests 2 08/15/19 05:55: Nucleated Red Blood Cells % (auto) 0.0, Anion Gap 6L, Glomerular Filtration Rate > 60.0, Blood Urea Nitrogen 9, Creatinine 0.51L, Sodium Level 142, Potassium Level 4.0, Chloride Level 105, Carbon Dioxide Level 31, Calcium Level 9.3 08/15/19 11:13: Bedside Glucose (Misc Panel) 212H CBC/BMP Laboratory Tests 08/15/19 05:55 Red Blood Count 4.03, Mean Corpuscular Volume 98.5 H, Mean Corpuscular Hemoglobin 31.5, Mean Corpuscular Hemoglobin Concent 32.0, Red Cell Distribution Width 13.2, Calcium Level 9.3 FSBS Laboratory Tests Test 08/15/19 11:13 Range/Units Bedside Glucose (Misc Panel) 212 80-115 MG/DL Microbiology Microbiology 08/10/19 Blood Culture - Final, Complete NO GROWTH AFTER 5 DAYS 08/10/19 Blood Culture - Final, Complete Escherichia Coli 08/10/19 Urine Culture - Final, Complete Escherichia Coli Discharge Medications Scheduled Acamprosate Calcium (Acamprosate Calcium) 333 Mg Tab, 666 MG PO BID, (Reported) Alendronate Sodium (Fosamax) 70 Mg Tab, 70 MG PO QWEEK, (Reported) SATURDAYS Bupropion HCl (Wellbutrin Sr) 100 Mg Tab.sr.12h, 100 MG PO BID, (Reported) Calcium Polycarbophil (Fibercon) 625 Mg Tablet, 625 MG PO BID, (Reported) Carbamide Peroxide (Debrox) 6.5 % Cami, 3 DROP AU ASDIRECTED, (Reported) FIRST 3 DAYS OF EACH MONTH Cetirizine HCl (Cetirizine HCl) 10 Mg Tablet, 10 MG PO QHS, (Reported) Dapagliflozin Propanediol (Farxiga) 10 Mg Tablet, 5 MG PO DAILY, (Reported) Esomeprazole Magnesium (Nexium) 40 Mg Cap, 40 MG PO DAILY, (Reported) Exenatide Microspheres (Bydureon) 2 Mg/0.65 Ml Pen.injctr, 2 MG SC QWEEK, (Repo rted) TUESDAYS Fenofibrate Nanocrystallized (Fenofibrate) 48 Mg Tab, 48 MG PO DAILY, (Reported) Ferrous Sulfate (Ferrous Sulfate) 325 Mg Tablet, 325 MG PO TID, (Reported) Fluticasone Propionate (Flonase Allergy Relief) 50 Mcg/Act Spr, 2 SPRAY NA QHS, (Reported) Lamotrigine (Lamictal) 200 Mg Tab, 200 MG PO QHS, (Reported) Linaclotide (Linzess) 145 Mcg Capsule, 145 MCG PO QAM, (Reported) Linagliptin (Tradjenta) 5 Mg Tab, 5 MG PO DAILY, (Reported) Magnesium Oxide (Magnesium Oxide) 400 Mg Tablet, 800 MG PO BID, (Reported) Metformin HCl (Metformin HCl) 1,000 Mg Tab, 1,000 MG PO BID, (Reported) Multivitamins (Thera M Plus Tablet) 1 Tab Tab, 1 TAB PO DAILY, (Reported) Nitrofurantoin Macrocrystal (Nitrofurantoin) 100 Mg Capsule, 100 MG PO BID Quetiapine Fumarate (Quetiapine Fumarate) 50 Mg Tab, 50 MG PO QHS, (Reported) Sertraline Hcl (Zoloft) 100 Mg Tab, 100 MG PO DAILY, (Reported) Simvastatin (Zocor) 40 Mg Tablet, 40 MG PO DAILY, (Reported) Umeclidinium [place] (Incruse Ellipta) 62.5 Mcg Blst.w.dev, 1 PUFF INH DAILY, (Reported) Scheduled PRN Acetaminophen (Acetaminophen) 325 Mg Tab, 650 MG PO for PAIN OR FEVER, (Reported) Ibuprofen (Ibu-200) 200 Mg Tablet, 400 MG PO QID PRN for FEVER, (Reported) Polyethylene Glycol 3350 (Miralax) 119 Gm Powder, 17 GM PO DAILY PRN for CONSTIPATION, (Reported) dilute in 8 ounces of water or juice Sodium Chloride (Saline Nasal [place]) 44 Ml [place], 1 SPRAY NARES QID PRN for NASAL DRYNESS, (Reported) Sumatriptan Succinate (Sumatriptan Succinate) 25 Mg Tablet, 25 MG PO for MIGRAINE, (Reported) Allergies Coded Allergies: procaine (Verified Allergy, Intermediate, Hives, 07/20/19) PATRICIA TALLEY DO Aug 15, 2019 22:11
[2019-08-22] MEDS ORDERED: CARBAMIDE PEROXIDE 6.5% OTIC SOLN 15ML AU SCH (09:00)
== END 2019-08-15 14:58 | disposition home or self-care (01) | DRG 690 ==
LOC: M ED 10:55 → M ED INP 16:22 → M MSPAV 16:58
PROVIDERS: ADMIT Student in an Organized Health Care Education/Training Program; ATTEND Internal Medicine
DX: N10 Acute pyelonephritis (principal); E11.9 Type 2 diabetes mellitus without complications; Z87.820 Personal history of traumatic brain injury; N13.1 Hydronephrosis with ureteral stricture, not elsewhere classified; E20.9 Hypoparathyroidism, unspecified; G31.84 Mild cognitive impairment of uncertain or unknown etiology; Z79.899 Other long term (current) drug therapy; Z88.8 Allergy status to other drugs, medicaments and biological substances; B96.29 Other Escherichia coli [E. coli] as the cause of diseases classified elsewhere

== ENCOUNTER → 2019-08-10 | Outpatient (CLI) | payer MEDICARE, MEDICAID ==
[~2019-08-10] MED LIST changes: +FERR1TAB8 PO; +HM S0.65 NARES; +IBUP200T45 PO; +IMIT50TA PO; +INCR1INH INH; +SPIR1CAP INH; +WELL100T2 PO
--- NOTE | 2019-08-10 10:17 | REP ---
Acute abdominal series including PA chest and supine upright views of the abdomen: A PA chest: Comparisons are 09/20/2017 and 07/05/2019. Lung tellez are clear. Cardiac size is upper normal. The the aditya are unremarkable. The trachea is deviated to the left, unchanged from both prior studies. This may be from thyroid enlargement. Consider follow-up thyroid ultrasound. There is no free subdiaphragmatic air. Impression: No acute cardiopulmonary findings. Possible thyroid enlargement. Consider thyroid ultrasound. Abdomen, supine upright views: There is a comparison abdomen/pelvis CT dated 06/10/2018. There is a right ureteral stent. This is unchanged. There are air-fluid levels in minimally distended bowel loops. The bowel gas pattern is nonspecific. There are metallic density superimposed over the abdomen and pelvis, nonspecific, possibly artifacts in clothing. Impression: Nonspecific bowel gas pattern. Electronically Signed by Donny Dean MD 08/10/2019 10:09 A
== END ==
LOC: M RAD 09:18
PROVIDERS: ATTEND Internal Medicine Gastroenterology
DX: K59.00 Constipation, unspecified (principal)

== ENCOUNTER → 2019-08-21 | Outpatient (CLI) | payer MEDICARE, MEDICAID ==
[~2019-08-21] MED LIST changes: +AMMO12LO TOP; +FERR1TAB8 PO; +GNP8.6TA PO; +HM S0.65 NARES; +IBUP200T45 PO; +IMIT50TA PO; +INCR1INH INH; +LAMO100T80 PO; +NITR-67 PO; +SERO50TA PO; +SPIR1CAP INH; +TRIC145T22 PO; +WELL100T2 PO; +ZYRTTAB8 PO; +campral PO
[2019-08-21 07:40] LABS: ALBUMIN 2.7 GM/DL (3.2-5.2); ALT/SGPT 31 U/L (12-78); BILIRUBIN,TOTAL 0.1 MG/DL (0.2-1.0); BLOOD UREA NITROGEN 39 MG/DL (7-18); CARBON DIOXIDE LEVEL 29 MEQ/L (21-32); CHLORIDE LEVEL 103 MEQ/L (98-107); CREATININE FOR GFR 0.77 MG/DL (0.55-1.30); GLOMERULAR FILTRATION RATE > 60.0 (>45); GLUCOSE, FASTING 332 MG/DL (70-100); POTASSIUM SERUM 5.1 MEQ/L (3.5-5.1); SODIUM LEVEL 141 MEQ/L (136-145); TOTAL PROTEIN 6.6 GM/DL (6.4-8.2)
== END ==
LOC: M LAB 06:26
PROVIDERS: ATTEND Nurse Practitioner Family
DX: E83.52 Hypercalcemia (principal)

== ENCOUNTER 2019-08-22 10:56 | Emergency (ER) | payer MEDICARE, MEDICAID ==
[~2019-08-22] VITALS: Ht 154.9 cm; Wt 55.1 kg
[~2019-08-22 10:56] MED LIST changes: -AMMO12LO TOP; -GNP8.6TA PO; -LAMO100T80 PO; -SERO50TA PO; -TRIC145T22 PO; -ZYRTTAB8 PO; -campral PO
[2019-08-22] MEDS ORDERED: TRAD5TAB PO (11:33)
[2019-08-22] MEDS ORDERED: TRIC145T22 PO (11:33)
[2019-08-22] MEDS ORDERED: ZYRTTAB8 PO (11:33)
[2019-08-22] MEDS ORDERED: FIBE625T PO (11:33)
[2019-08-22] MEDS ORDERED: campral PO (11:33)
[2019-08-22] MEDS ORDERED: INCR1INH INH (11:33)
[2019-08-22] MEDS ORDERED: SERO50TA PO (11:33)
[2019-08-22] MEDS ORDERED: BYDU1INJ SC (11:33)
[2019-08-22] MEDS ORDERED: ISOVUE-370 76% 100ML VIAL (Q9967) As Ordered ONE (13:55)
[2019-08-22 13:56] LABS: BASO % 0.4 % (0.0-1.0); EOS # 0.1 10^3/uL (0.0-0.5); EOS % 0.8 % (0.0-3.0); HEMATOCRIT 32.6 % (36.0-47.0); HEMOGLOBIN 10.2 g/dl (12.0-15.5); LYMPH # 1.7 10^3/uL (1.5-5.0); LYMPH % 23.9 % (24.0-44.0); MEAN CORPUSCULAR HEMOGLOBIN 32.1 pg (27.0-33.0); MEAN CORPUSCULAR HGB CONC 31.3 g/dl (32.0-36.5); MEAN CORPUSCULAR VOLUME 102.5 fl (80.0-96.0); MONO # 0.4 10^3/uL (0.0-0.8); MONO % 5.1 % (0.0-5.0); NEUTROPHILS # 4.7 10^3/uL (1.5-8.5); PLATELET COUNT, AUTOMATED 473 10^3/uL (150-450); RED BLOOD COUNT 3.18 10^6/uL (4.00-5.40); WHITE BLOOD COUNT 7.1 10^3/uL (4.0-10.0)
[2019-08-22 14:23] LABS: ALBUMIN 3.1 GM/DL (3.2-5.2); ALT/SGPT 28 U/L (12-78); BILIRUBIN,TOTAL 0.1 MG/DL (0.2-1.0); BLOOD UREA NITROGEN 34 MG/DL (7-18); CALCIUM LEVEL 9.4 MG/DL (8.8-10.2); CARBON DIOXIDE LEVEL 34 MEQ/L (21-32); CHLORIDE LEVEL 105 MEQ/L (98-107); CREATININE FOR GFR 0.62 MG/DL (0.55-1.30); GLOMERULAR FILTRATION RATE > 60.0 (>45); GLUCOSE, FASTING 151 MG/DL (70-100); POTASSIUM SERUM 4.3 MEQ/L (3.5-5.1); SODIUM LEVEL 143 MEQ/L (136-145); TOTAL PROTEIN 6.9 GM/DL (6.4-8.2)
[2019-08-22] MEDS ORDERED: MACR100C43 PO (15:38)
--- NOTE | 2019-08-22 15:52 | REP ---
HISTORY: Rectal bleeding. COMPARISON: All priors were reviewed, the latest which is dated 08/10/2019. CONTRAST: 100 mL Isovue-370. There are bibasilar curvilinear densities right greater than left increased from the prior examination likely secondary to subsegmental atelectatic changes. There are no pleural or pericardial effusions. There is a double pigtail catheter seen in the right renal collecting system, the proximal portion of which is in the region of the renal pelvis and the distal portion of which is in the urinary bladder. This is unchanged compared to the prior exam. The degree of right-sided hydronephrosis is also unchanged. The left kidney is stable. The liver, spleen, gallbladder, pancreas, and adrenal glands are unchanged. The abdominal aorta and periaortic regions are unchanged and again seen to be within normal limits. Once again, there are metallic radiodensities seen in the colon, one is in the mid transverse colon and two are in the proximal transverse colon. There is an additional metallic radiodensity which appears to be in the cecum near the ileocecal valve. These metallic radiodensities are essentially unchanged compared to the prior exam. There is no evidence of free intraperitoneal fluid or air. There is no evidence of intestinal obstruction. CT PELVIS: The bowel loops and their mesenteries are unchanged. There is no free fluid or free air. There is no mass or adenopathy. Bone window technique the examination shows no change in the osseous structures. IMPRESSION: 1. Multiple metallic radiodensities in the colon as described above. These have the appearance of threaded metallic radiodensities possibly reflecting some sort of screw. This should be correlated clinically. 2. Right-sided double pigtail catheter and hydronephrosis as described above, essentially unchanged. 3. Stable tiny bilateral nephroliths. 4. Other findings as described above. Electronically Signed by Óscar Emerson DO 08/22/2019 04:37 P
[2019-08-22 16:00] VITALS: BP 134/89
== END 2019-08-22 16:07 | disposition home or self-care (01) ==
LOC: M ED 10:56
DX: N39.0 Urinary tract infection, site not specified (principal); D64.9 Anemia, unspecified; K62.5 Hemorrhage of anus and rectum; E11.9 Type 2 diabetes mellitus without complications; J44.9 Chronic obstructive pulmonary disease, unspecified; Z87.442 Personal history of urinary calculi; Z87.448 Personal history of other diseases of urinary system; Z87.820 Personal history of traumatic brain injury; F41.9 Anxiety disorder, unspecified; F32.9 Major depressive disorder, single episode, unspecified; N20.0 Calculus of kidney; Z97.8 Presence of other specified devices; N13.30 Unspecified hydronephrosis; R93.3 Abnormal findings on diagnostic imaging of other parts of digestive tract; Z79.899 Other long term (current) drug therapy; Z88.8 Allergy status to other drugs, medicaments and biological substances
CPT/HCPCS: 74177; 80053; 81001; 85025; 86140; 86850; 86900; 86901; 87088; 87186; 99284; Q9967

== ENCOUNTER 2019-08-25 14:53 | Inpatient (IN) | payer MEDICARE, MEDICAID ==
[~2019-08-25] VITALS: Ht 154.9 cm; Wt 56.4 kg
[~2019-08-25 14:53] MED LIST changes: -AMMO12LO TOP; -GNP8.6TA PO; -LAMO100T80 PO
[2019-08-25] MEDS ORDERED: PANTOPRAZOLE 40MG INJ (PROTONIX) (C9113) IV ONE (15:15)
[2019-08-25] MEDS ORDERED: NS 1,000 ML IV ONE (15:15)
[2019-08-25 15:35] LABS: BASO % 0.2 % (0.0-1.0); EOS # 0.1 10^3/uL (0.0-0.5); EOS % 0.9 % (0.0-3.0); HEMATOCRIT 21.9 % (36.0-47.0); LYMPH # 1.2 10^3/uL (1.5-5.0); LYMPH % 18.7 % (24.0-44.0); MEAN CORPUSCULAR HEMOGLOBIN 31.7 pg (27.0-33.0); MEAN CORPUSCULAR HGB CONC 30.1 g/dl (32.0-36.5); MEAN CORPUSCULAR VOLUME 105.3 fl (80.0-96.0); MONO # 0.5 10^3/uL (0.0-0.8); MONO % 6.9 % (0.0-5.0); NEUTROPHILS # 4.6 10^3/uL (1.5-8.5); NEUTROPHILS % 71.1 % (36.0-66.0); PLATELET COUNT, AUTOMATED 363 10^3/uL (150-450); RED BLOOD COUNT 2.08 10^6/uL (4.00-5.40); WHITE BLOOD COUNT 6.5 10^3/uL (4.0-10.0)
[2019-08-25 15:40] LABS: HEMOGLOBIN 6.6 g/dl (12.0-15.5)
[2019-08-25 15:48] LABS: INR 1.01
[2019-08-25 15:58] LABS: ALT/SGPT 29 U/L (12-78); BILIRUBIN,DIRECT < 0.1 MG/DL (0.0-0.2); BILIRUBIN,TOTAL 0.1 MG/DL (0.2-1.0); BLOOD UREA NITROGEN 33 MG/DL (7-18); CALCIUM LEVEL 8.5 MG/DL (8.8-10.2); CARBON DIOXIDE LEVEL 31 MEQ/L (21-32); CHLORIDE LEVEL 105 MEQ/L (98-107); CREATININE FOR GFR 0.57 MG/DL (0.55-1.30); GLOMERULAR FILTRATION RATE > 60.0 (>45); GLUCOSE, FASTING 131 MG/DL (70-100); LIPASE 380 U/L (73-393); POTASSIUM SERUM 3.7 MEQ/L (3.5-5.1); SODIUM LEVEL 141 MEQ/L (136-145); TOTAL PROTEIN 6.7 GM/DL (6.4-8.2)
[2019-08-25] MEDS ORDERED: ACETAMINOPHEN 325 MG TAB PO ONE (16:45)
[2019-08-25] MEDS ORDERED: GLUCOSE 4 GM CHEW TABLET PO PRN (17:15)
[2019-08-25] MEDS ORDERED: GLUCAGON FOR INJ 1 MG VIAL (J1610) SC PRN (17:15)
[2019-08-25] MEDS ORDERED: DEXTROSE 50% 50 ML SYRINGE IV PRN (17:15)
[2019-08-25] MEDS ORDERED: AMMO12LO TOP (17:28)
[2019-08-25] MEDS ORDERED: LINZ145C PO (17:28)
[2019-08-25] MEDS ORDERED: LAMO100T80 PO (17:28)
[2019-08-25] MEDS ORDERED: ACAM0.05 PO (17:28)
[2019-08-25] MEDS ORDERED: FERR1TAB8 PO (17:28)
[2019-08-25] MEDS ORDERED: CETI10TA PO (17:28)
[2019-08-25] MEDS ORDERED: MIRA3350 PO (17:28)
[2019-08-25] MEDS ORDERED: BYDU1INJ SC (17:28)
[2019-08-25] MEDS ORDERED: GNP8.6TA PO (17:29)
[2019-08-25] MEDS: HumaLOG INSULIN (NovoLOG) PER UNIT SC SCH ×2 (17:30→21:00)
--- NOTE | 2019-08-25 18:53 | REP ---
Abdomen series: Four views. History: Abdomen pain. Comparison chest x-ray August 25, 2019. Findings: Monitoring electrodes are seen overlying the chest. Mild cardiomegaly is observed. There is linear fibrosis in the left base unchanged. There is no evidence of infiltrate or free subdiaphragmatic air. Supine and upright views of the abdomen demonstrate a double pigtail ureteral stent in place on the right. There are endoscopically placed clips projecting in the right colon. There is formed stool in the proximal and distal colon without large bowel dilation. No small bowel dilation is seen. There are osteoarthritic changes at the hips. These are unchanged from August 10, 2019 prior studies. Impression: Double pigtail right ureteral stent noted in place. Endoscopic lead position mucosal clips noted in the right colon. Moderate formed stool. Mild cardiomegaly. Electronically Signed by Javi Chaparro MD 08/28/2019 11:24 A
[2019-08-25] MEDS: COMBIVENT RESPIMAT 100-20MCG INHALER 4GM INH SCH (19:26)
[2019-08-25 20:21] VITALS: BP 135/73
[2019-08-25 20:24] LABS: HEMATOCRIT 22.8 % (36.0-47.0); HEMOGLOBIN 7.1 g/dl (12.0-15.5); MEAN CORPUSCULAR HEMOGLOBIN 31.4 pg (27.0-33.0); MEAN CORPUSCULAR HGB CONC 31.1 g/dl (32.0-36.5); MEAN CORPUSCULAR VOLUME 100.9 fl (80.0-96.0); PLATELET COUNT, AUTOMATED 325 10^3/uL (150-450); RED BLOOD COUNT 2.26 10^6/uL (4.00-5.40); WHITE BLOOD COUNT 5.4 10^3/uL (4.0-10.0)
--- NOTE | 2019-08-25 20:55 | HPE ---
DATE OF ADMISSION: 08/25/2019 PRIMARY CARE PROVIDER: Dr. Martha Mejia ATTENDING PHYSICIAN: Hospitalist group. PRINCIPAL DIAGNOSIS: Gastrointestinal bleeding with acute blood loss anemia. HISTORY: Lucy Yusuf is a 64-year-old who underwent colonoscopy with polypectomy 08/07/2019. She had multiple polyps removed, hemostat clips were required for several of the polypectomy sites. She was then subsequently hospitalized on 08/10/2019 to 08/15/2019 for pyelonephritis, Escherichia (E) coli cultured out of her urine culture. She then began to pass bright red blood per rectum today. She came to the emergency room and hemoglobin was down to 6.8 (was 10.2 on 08/22/2019). She is being admitted for stabilization and transfusion and monitoring. PAST MEDICAL HISTORY: 1. Traumatic brain injury. She is under the care of [facility] ([facility]) now. 2. Chronic ureteral strictures. 3. Type 2 diabetes. 4. Hyperlipidemia. 5. Hyperparathyroidism. 6. History of chronic right hydronephrosis. PAST SURGICAL HISTORY: 1. Some type of craniotomy surgery in 2003. 2. Tubal ligation. 3. Oophorectomy. SOCIAL HISTORY: She is a former smoker and no longer smokes. FAMILY HISTORY: Sister of lung cancer. REVIEW OF SYSTEMS: No abdominal pain, fevers, chills, urinary bleeding, frequency, urgency, dysuria. HOME MEDICATIONS: - Fosamax 70 mg weekly - Wellbutrin SR 100 mg twice a day - Zyrtec D one daily - Farxiga 5 mg daily - Nexium 40 mg daily - Tricor 145 mg daily - Flonase spray - Lamictal 200 mg at night - Tradjenta 5 mg daily - magnesium oxide 800 mg twice a day - metformin 1000 mg twice a day - multivitamin - Seroquel 50 mg one at bedtime - sertraline 100 mg daily - simvastatin 40 mg daily - sumatriptan 25 mg as needed for migraines - Incruse Ellipta one inhalation daily - Campral 333 mg twice a day ALLERGIES: PROCAINE. PHYSICAL EXAMINATION: VITAL SIGNS: Per flow sheet. Blood pressure was 125/76, pulse 78. GENERAL APPEARANCE: Well developed, well nourished, well perfused. Resting comfortably and in no distress. Hirsute. Pupils are equal and reactive to light. Pharynx benign. Neck with no masses. LUNGS: Clear. HEART: Regular rhythm without murmur. ABDOMEN: Bright red blood per rectum reported by the emergency room provider. EXTREMITIES: No clubbing, cyanosis or edema. Normal strength in the arms and legs. LABORATORIES: Hemoglobin 6.8 and recheck was 6.6 two hours later. White count 6.5, platelets 363. INR normal. Electrolytes unremarkable. BUN 33, creatinine 0.5. IMPRESSION: 1. Gastrointestinal bleed with acute blood loss anemia. She will be admitted to the medical floor. She is hemodynamically stable and well perfused. Transfuse her with a total of 4 units of packed red blood cells. Every 6 hour complete blood count (CBC) ordered. 2. Diabetes. Sliding scale of insulin. Fingerstick blood sugar until oral intake is assured. 3. Various psychiatric conditions. Continue psychotropic medications. 4. History of asthma. Continue her inhalers. 5. Osteoporosis. Hold her Fosamax while in the hospital. 6. Hyperlipidemia. Continue simvastatin 40 mg daily. Hold her fibrate for now. Her bleeding seems to have ceased. Her hemoglobin is stable over the last several hours. If she rebleeds then GI can be consulted.
[2019-08-25] MEDS: buPROPion (WELLBUTRIN SR) 100 MG SR TAB PO SCH (21:00)
[2019-08-25] MEDS: ACAMPROSATE CALCIUM 333 MG TABLET (CAMPRAL) PO SCH (21:00)
[2019-08-25] MEDS: SIMVASTATIN 40 MG TAB PO SCH (21:46)
[2019-08-25] MEDS: QUEtiapine FUMARATE 50 MG TAB PO SCH (21:46)
[2019-08-25] MEDS: CETIRIZINE (ZyrTEC) 10 MG TAB PO SCH (21:46)
[2019-08-25] MEDS: lamoTRIgine 100MG TAB PO SCH (21:46)
[2019-08-25 23:18] LABS: HEMATOCRIT 23.9 % (36.0-47.0); HEMOGLOBIN 7.5 g/dl (12.0-15.5); MEAN CORPUSCULAR HEMOGLOBIN 31.6 pg (27.0-33.0); MEAN CORPUSCULAR HGB CONC 31.4 g/dl (32.0-36.5); MEAN CORPUSCULAR VOLUME 100.8 fl (80.0-96.0); PLATELET COUNT, AUTOMATED 293 10^3/uL (150-450); RED BLOOD COUNT 2.37 10^6/uL (4.00-5.40); WHITE BLOOD COUNT 4.6 10^3/uL (4.0-10.0)
[2019-08-25] MEDS: KCL 20MEQ in NS 1000ML 1,000 ML IV SCH (23:55)
[2019-08-26] MEDS: KCL 20MEQ in NS 1000ML 1,000 ML IV SCH ×4 (00:20→19:55)
[2019-08-26 06:00] VITALS: BP 94/73
[2019-08-26 06:44] LABS: HEMATOCRIT 27.6 % (36.0-47.0); HEMOGLOBIN 8.6 g/dl (12.0-15.5); MEAN CORPUSCULAR HGB CONC 31.2 g/dl (32.0-36.5); MEAN CORPUSCULAR VOLUME 99.6 fl (80.0-96.0); PLATELET COUNT, AUTOMATED 335 10^3/uL (150-450); RED BLOOD COUNT 2.77 10^6/uL (4.00-5.40); WHITE BLOOD COUNT 4.9 10^3/uL (4.0-10.0)
[2019-08-26 07:09] LABS: BLOOD UREA NITROGEN 22 MG/DL (7-18); CALCIUM LEVEL 8.5 MG/DL (8.8-10.2); CARBON DIOXIDE LEVEL 28 MEQ/L (21-32); CHLORIDE LEVEL 110 MEQ/L (98-107); CREATININE FOR GFR 0.52 MG/DL (0.55-1.30); GLOMERULAR FILTRATION RATE > 60.0 (>45); GLUCOSE, FASTING 165 MG/DL (70-100); POTASSIUM SERUM 3.6 MEQ/L (3.5-5.1); SODIUM LEVEL 143 MEQ/L (136-145)
[2019-08-26] MEDS: COMBIVENT RESPIMAT 100-20MCG INHALER 4GM INH SCH ×2 (07:22→20:10)
--- NOTE | 2019-08-26 09:36 | IPNPDOC ---
Subjective Date Seen The patient was seen on 08/26/19. Subjective Chief Complaint/HPI As per patient is no more bleeding. Wants to eat now, as per patient, she is been very hungry General: Denies: ROS Unobtainable, Chills, Night Sweats, Fatigue, Malaise, Normal Appetite, Other Symptoms Constitutional: Denies: Chills, Fever, Malaise, Night Sweats, Weakness, Fatigue, Weight Loss, Lethargy, Other Pulmonary: Denies: Dyspnea, Cough, Pleuritic Chest Pain, Other Symptoms Cardiovascular: Denies: Chest Pain, Palpitations, Orthopnea, Paroxysmal Noc. Dyspnea, Edema, Lt Headedness, Other Symptoms Gastrointestinal: Denies: Nausea, Vomiting, Abdominal Pain, Diarrhea, Constipation, Melena, Hematochezia, Other Symptoms Musculoskeletal: Denies: Neck Pain, Back Pain, Shoulder Pain, Arm Pain, Hand Pain, Leg Pain, Foot Pain, Joint Pain, Muscle Pain, Spasms, Other Symptoms Neurological: Denies: Weakness, Numbness, Incoordination, Change in speech, Confusion, Seizures, Other Symptoms Objective Physical Examination General Exam: Positive: Alert, Cooperative Neck Exam: Positive: Supple Chest Exam: Positive: Clear to auscultation, Normal air movement Heart Exam: Positive: Rate Normal, Normal S1, Normal S2 Abdomen Exam: Positive: Normal bowel sounds, Soft Extremity Exam: Positive: Normal pulses Skin Exam: Positive: Nl turgor and temperature Neuro Exam: Positive: Normal Gait, Strength at 5/5 X4 ext, Sensation Intact Assessment /Plan Problems (1) GI bleed Status: Acute Problem Text: 64 years old white female, status post colonoscopy with polypectomy on 08/07/2019. She had multiple polyps removed and clips were placed in at multiple sites. Patient came in with the chief complaint of bright red blood per rectum and hemoglobin was found to be 6.8, hence was admitted and had 4 units of PRBC transfused. Patient does not complain of any active bleeding at this time and wants to eat, as she is on clear liquids. Monitor H&H Advance diet as tolerated Continue all home meds (2) Anemia Status: Acute Problem Text: Acute blood loss anemia secondary to GI bleed Monitor H&H Transfuse as needed (3) Diabetes mellitus Status: Chronic Problem Text: Continue home meds Fingerstick blood sugar every before meals and at bedtime with coverage (4) Asthma Status: Chronic Problem Text: Stable Continue home meds (5) Hyperlipemia Status: Chronic Problem Text: Stable Continue home meds Plan/VTE VTE Prophylaxis Ordered?: Yes VS, I&O, 24H, Fishbone Vital Signs/I&O Vital Signs Date Time Temp Pulse Resp B/P (MAP) Pulse Ox O2 Delivery O2 Flow Rate FiO2 08/26/19 06:00 98.5 66 17 94/73 (80) 94 08/25/19 14:54 Room Air I&O- Last 24 Hours up to 6 AM 08/26/19 05:59 Intake Total 720 ml Output Total 800 ml Balance -80 ml Laboratory Data 24H LABS Laboratory Tests 2 08/25/19 15:18: Immature Granulocyte % (Auto) 2.2, White Blood Count 6.5, Red Blood Count 2.08L, Hemoglobin 6.6*L, Hematocrit 21.9L, Mean Corpuscular Volume 105.3H, Mean Corpuscular Hemoglobin 31.7, Mean Corpuscular Hemoglobin Concent 30.1L, Red Cell Distribution Width 17.2H, Platelet Count 363, Neutrophils (%) (Auto) 71.1H, Lymphocytes (%) (Auto) 18.7L, Monocytes (%) (Auto) 6.9H, Eosinophils (%) (Auto) 0.9, Basophils (%) (Auto) 0.2, Neutrophils # (Auto) 4.6, Lymphocytes # (Auto) 1.2L, Monocytes # (Auto) 0.5, Eosinophils # (Auto) 0.1, Basophils # (Auto) 0.0, Nucleated Red Blood Cells % (auto) 2.5H, Prothrombin Time 13.0, Prothromb Time International Ratio 1.01, Anion Gap 5L, Glomerular Filtration Rate > 60.0, Calcium Level 8.5L, Aspartate Amino Transf (AST/SGOT) 13, Alanine Aminotransferase (ALT/SGPT) 29, Alkaline Phosphatase 52, Total Bilirubin 0.1L, Direct Bilirubin < 0.1, Total Protein 6.7, Albumin 3.0L, Albumin/Globulin Ratio 0.81L, Lipase 380 08/25/19 20:02: Nucleated Red Blood Cells % (auto) 2.6H 08/25/19 21:59: Bedside Glucose (Misc Panel) 143H 08/25/19 23:10: Nucleated Red Blood Cells % (auto) 2.8H 08/26/19 05:56: Nucleated Red Blood Cells % (auto) 1.8H, Anion Gap 5L, Glomerular Filtration Rate > 60.0, Blood Urea Nitrogen 22H, Creatinine 0.52L, Sodium Level 143, Potassium Level 3.6, Chloride Level 110H, Carbon Dioxide Level 28, Calcium Level 8.5L CBC/BMP Laboratory Tests 08/25/19 15:18 Red Blood Count 2.08 L, Mean Corpuscular Volume 105.3 H, Mean Corpuscular Hemoglobin 31.7, Mean Corpuscular Hemoglobin Concent 30.1 L, Red Cell Distribution Width 17.2 H, Neutrophils (%) (Auto) 71.1 H, Lymphocytes (%) (Auto) 18.7 L, Monocytes (%) (Auto) 6.9 H, Eosinophils (%) (Auto) 0.9, Basophils (%) (Auto) 0.2, Neutrophils # (Auto) 4.6, Lymphocytes # (Auto) 1.2 L, Monocytes # (Auto) 0.5, Eosinophils # (Auto) 0.1, Basophils # (Auto) 0.0 08/25/19 20:02 Red Blood Count 2.26 L, Mean Corpuscular Volume 100.9 H, Mean Corpuscular Hemoglobin 31.4, Mean Corpuscular Hemoglobin Concent 31.1 L, Red Cell Distribution Width 17.1 H 08/25/19 23:10 Red Blood Count 2.37 L, Mean Corpuscular Volume 100.8 H, Mean Corpuscular Hemoglobin 31.6, Mean Corpuscular Hemoglobin Concent 31.4 L, Red Cell Distribution Width 17.3 H 08/26/19 05:56 Red Blood Count 2.77 L, Mean Corpuscular Volume 99.6 H, Mean Corpuscular Hemoglobin 31.0, Mean Corpuscular Hemoglobin Concent 31.2 L, Red Cell Distribution Width 17.8 H, Calcium Level 8.5 L SOULEYMANE BURGOS MD Aug 26, 2019 09:36
[2019-08-26] MEDS: ACAMPROSATE CALCIUM 333 MG TABLET (CAMPRAL) PO SCH ×2 (09:41→21:11)
[2019-08-26] MEDS: HumaLOG INSULIN (NovoLOG) PER UNIT SC SCH ×4 (09:41→21:00)
[2019-08-26] MEDS: SERTRALINE 100 MG TAB PO SCH (09:42)
[2019-08-26] MEDS: PANTOPRAZOLE 40MG INJ (PROTONIX) (C9113) IV SCH (09:42)
[2019-08-26] MEDS: buPROPion (WELLBUTRIN SR) 100 MG SR TAB PO SCH ×2 (09:42→21:11)
[2019-08-26 10:00] VITALS: BP 127/73
[2019-08-26 11:28] LABS: HEMATOCRIT 27.2 % (36.0-47.0); HEMOGLOBIN 8.4 g/dl (12.0-15.5); MEAN CORPUSCULAR HEMOGLOBIN 30.5 pg (27.0-33.0); MEAN CORPUSCULAR HGB CONC 30.9 g/dl (32.0-36.5); MEAN CORPUSCULAR VOLUME 98.9 fl (80.0-96.0); PLATELET COUNT, AUTOMATED 305 10^3/uL (150-450); RED BLOOD COUNT 2.75 10^6/uL (4.00-5.40); WHITE BLOOD COUNT 4.9 10^3/uL (4.0-10.0)
[2019-08-26 14:00] VITALS: BP 143/72
[2019-08-26 17:06] LABS: HEMATOCRIT 26.5 % (36.0-47.0); HEMOGLOBIN 8.3 g/dl (12.0-15.5); MEAN CORPUSCULAR HEMOGLOBIN 31.7 pg (27.0-33.0); MEAN CORPUSCULAR HGB CONC 31.3 g/dl (32.0-36.5); MEAN CORPUSCULAR VOLUME 101.1 fl (80.0-96.0); PLATELET COUNT, AUTOMATED 287 10^3/uL (150-450); RED BLOOD COUNT 2.62 10^6/uL (4.00-5.40); WHITE BLOOD COUNT 5.9 10^3/uL (4.0-10.0)
[2019-08-26 18:00] VITALS: BP 125/60
[2019-08-26] MEDS: QUEtiapine FUMARATE 50 MG TAB PO SCH (21:11)
[2019-08-26] MEDS: lamoTRIgine 100MG TAB PO SCH (21:11)
[2019-08-26] MEDS: CETIRIZINE (ZyrTEC) 10 MG TAB PO SCH (21:11)
[2019-08-26] MEDS: SIMVASTATIN 40 MG TAB PO SCH (21:11)
[2019-08-26 22:00] VITALS: BP 137/74
[2019-08-26 22:53] LABS: HEMATOCRIT 27.4 % (36.0-47.0); HEMOGLOBIN 8.7 g/dl (12.0-15.5); MEAN CORPUSCULAR HEMOGLOBIN 31.9 pg (27.0-33.0); MEAN CORPUSCULAR HGB CONC 31.8 g/dl (32.0-36.5); MEAN CORPUSCULAR VOLUME 100.4 fl (80.0-96.0); PLATELET COUNT, AUTOMATED 286 10^3/uL (150-450); RED BLOOD COUNT 2.73 10^6/uL (4.00-5.40); WHITE BLOOD COUNT 5.1 10^3/uL (4.0-10.0)
[2019-08-27 02:00] VITALS: BP 132/81
[2019-08-27 05:53] LABS: BASO % 0.4 % (0.0-1.0); EOS # 0.1 10^3/uL (0.0-0.5); EOS % 1.4 % (0.0-3.0); HEMATOCRIT 27.9 % (36.0-47.0); HEMOGLOBIN 8.5 g/dl (12.0-15.5); LYMPH # 0.8 10^3/uL (1.5-5.0); LYMPH % 16.1 % (24.0-44.0); MEAN CORPUSCULAR HEMOGLOBIN 30.4 pg (27.0-33.0); MEAN CORPUSCULAR HGB CONC 30.5 g/dl (32.0-36.5); MEAN CORPUSCULAR VOLUME 99.6 fl (80.0-96.0); MONO # 0.3 10^3/uL (0.0-0.8); MONO % 6.7 % (0.0-5.0); NEUTROPHILS # 3.7 10^3/uL (1.5-8.5); NEUTROPHILS % 74.4 % (36.0-66.0); PLATELET COUNT, AUTOMATED 301 10^3/uL (150-450)
[2019-08-27 06:00] VITALS: BP 125/76
[2019-08-27 06:12] LABS: BLOOD UREA NITROGEN 19 MG/DL (7-18); CALCIUM LEVEL 8.3 MG/DL (8.8-10.2); CARBON DIOXIDE LEVEL 27 MEQ/L (21-32); CHLORIDE LEVEL 111 MEQ/L (98-107); CREATININE FOR GFR 0.49 MG/DL (0.55-1.30); GLOMERULAR FILTRATION RATE > 60.0 (>45); GLUCOSE, FASTING 163 MG/DL (70-100); POTASSIUM SERUM 3.4 MEQ/L (3.5-5.1); SODIUM LEVEL 144 MEQ/L (136-145)
[2019-08-27] MEDS: COMBIVENT RESPIMAT 100-20MCG INHALER 4GM INH SCH ×2 (07:30→19:46)
[2019-08-27] MEDS: PANTOPRAZOLE 40MG INJ (PROTONIX) (C9113) IV SCH (08:40)
[2019-08-27] MEDS: ACAMPROSATE CALCIUM 333 MG TABLET (CAMPRAL) PO SCH ×2 (08:41→20:49)
[2019-08-27] MEDS: HumaLOG INSULIN (NovoLOG) PER UNIT SC SCH ×4 (08:41→20:41)
[2019-08-27] MEDS: SERTRALINE 100 MG TAB PO SCH (08:41)
[2019-08-27] MEDS: buPROPion (WELLBUTRIN SR) 100 MG SR TAB PO SCH ×2 (08:41→20:49)
[2019-08-27] MEDS ORDERED: ACETAMINOPHEN TAB 650MG DOSE (2X325MG) PO PRN (09:00)
--- NOTE | 2019-08-27 09:33 | IPNPDOC ---
Subjective Date Seen The patient was seen on 08/27/19. Subjective Chief Complaint/HPI Patient offers no new complaints. Tolerating oral feeding very well. As per palpation. No more bleeding was noted General: Denies: ROS Unobtainable, Chills, Night Sweats, Fatigue, Malaise, Normal Appetite, Other Symptoms Constitutional: Denies: Chills, Fever, Malaise, Night Sweats, Weakness, Fatigue, Weight Loss, Lethargy, Other Pulmonary: Denies: Dyspnea, Cough, Pleuritic Chest Pain, Other Symptoms Cardiovascular: Denies: Chest Pain, Palpitations, Orthopnea, Paroxysmal Noc. Dyspnea, Edema, Lt Headedness, Other Symptoms Gastrointestinal: Denies: Nausea, Vomiting, Abdominal Pain, Diarrhea, Constipation, Melena, Hematochezia, Other Symptoms Endocrine: Denies: Polydipsia, Polyphagia, Polyuria, Heat Intolerance, Cold Intolerance, Other Endocrine Sx Musculoskeletal: Denies: Neck Pain, Back Pain, Shoulder Pain, Arm Pain, Hand Pain, Leg Pain, Foot Pain, Joint Pain, Muscle Pain, Spasms, Other Symptoms Objective Physical Examination Chest Exam: Positive: Clear to auscultation, Normal air movement Heart Exam: Positive: Rate Normal, Normal S1, Normal S2 Abdomen Exam: Positive: Normal bowel sounds, Soft Extremity Exam: Positive: Normal pulses Skin Exam: Positive: Nl turgor and temperature Assessment /Plan Problems (1) GI bleed Status: Acute Problem Text: 64 years old white female, status post colonoscopy with polypectomy on 08/07/2019. She had multiple polyps removed and clips were placed in at multiple sites. Patient came in with the chief complaint of bright red blood per rectum and hemoglobin was found to be 6.8, hence was admitted and had 4 units of PRBC transfused. Patient is tolerating oral feeding very well and has no more episodes of active bleeding , Hemoglobin is 8.5/27.9 Will monitor hemoglobin. Possibly discharge patient home Needs social work evaluation before discharge as patient lives in assisted living facility/longterm and will not be safe discharge to discharge her home today (2) Anemia Status: Acute Problem Text: Acute blood loss anemia secondary to GI bleed Stable H&H, hemoglobin 8.4./Hematocrit 27.4 CBC in a.m. (3) Diabetes mellitus Status: Chronic Problem Text: Continue home meds Fingerstick blood sugar every before meals and at bedtime with coverage (4) Asthma Status: Chronic Problem Text: Stable Continue home meds (5) Hyperlipemia Status: Chronic Problem Text: Stable Continue home meds (6) Hypokalemia Status: Acute Problem Text: Potassium supplementation given Repeat K in a.m. Plan/VTE VTE Prophylaxis Ordered?: Yes VS, I&O, 24H, Fishbone Vital Signs/I&O Vital Signs Date Time Temp Pulse Resp B/P (MAP) Pulse Ox O2 Delivery O2 Flow Rate FiO2 08/27/19 06:00 98.2 67 17 125/76 (92) 92 08/25/19 14:54 Room Air I&O- Last 24 Hours up to 6 AM 08/27/19 05:59 Intake Total 4050 ml Output Total 2300 ml Balance 1750 ml Laboratory Data 24H LABS Laboratory Tests 2 08/26/19 10:58: Nucleated Red Blood Cells % (auto) 1.8H 08/26/19 11:42: Bedside Glucose (Misc Panel) 98 08/26/19 16:44: Bedside Glucose (Misc Panel) 129H 08/26/19 16:47: Nucleated Red Blood Cells % (auto) 1.4H 08/26/19 21:01: Bedside Glucose (Misc Panel) 138H 08/26/19 22:47: Nucleated Red Blood Cells % (auto) 2.4H 08/27/19 05:30: Nucleated Red Blood Cells % (auto) 1.4H, Immature Granulocyte % (Auto) 1.0, White Blood Count 5.0, Red Blood Count 2.80L, Hemoglobin 8.5L, Hematocrit 27.9L, Mean Corpuscular Volume 99.6H, Mean Corpuscular Hemoglobin 30.4, Mean Corpu scular Hemoglobin Concent 30.5L, Red Cell Distribution Width 18.2H, Platelet Count 301, Neutrophils (%) (Auto) 74.4H, Lymphocytes (%) (Auto) 16.1L, Monocytes (%) (Auto) 6.7H, Eosinophils (%) (Auto) 1.4, Basophils (%) (Auto) 0.4, Neutrophils # (Auto) 3.7, Lymphocytes # (Auto) 0.8L, Monocytes # (Auto) 0.3, Eosinophils # (Auto) 0.1, Basophils # (Auto) 0.0, Anion Gap 6L, Glomerular Filtration Rate > 60.0, Blood Urea Nitrogen 19H, Creatinine 0.49L, Sodium Level 144, Potassium Level 3.4L, Chloride Level 111H, Carbon Dioxide Level 27, Calcium Level 8.3L CBC/BMP Laboratory Tests 08/26/19 10:58 Red Blood Count 2.75 L, Mean Corpuscular Volume 98.9 H, Mean Corpuscular Hemoglobin 30.5, Mean Corpuscular Hemoglobin Concent 30.9 L, Red Cell Distribution Width 18.1 H 08/26/19 16:47 Red Blood Count 2.62 L, Mean Corpuscular Volume 101.1 H, Mean Corpuscular Hemo globin 31.7, Mean Corpuscular Hemoglobin Concent 31.3 L, Red Cell Distribution Width 18.4 H 08/26/19 22:47 Red Blood Count 2.73 L, Mean Corpuscular Volume 100.4 H, Mean Corpuscular Hemoglobin 31.9, Mean Corpuscular Hemoglobin Concent 31.8 L, Red Cell Distribution Width 18.4 H 08/27/19 05:30 Red Blood Count 2.80 L, Mean Corpuscular Volume 99.6 H, Mean Corpuscular Hemoglobin 30.4, Mean Corpuscular Hemoglobin Concent 30.5 L, Red Cell Distribution Width 18.2 H, Neutrophils (%) (Auto) 74.4 H, Lymphocytes (%) (Auto) 16.1 L, Monocytes (%) (Auto) 6.7 H, Eosinophils (%) (Auto) 1.4, Basophils (%) (Auto) 0.4, Neutrophils # (Auto) 3.7, Lymphocytes # (Auto) 0.8 L, Monocytes # (Auto) 0.3, Eosinophils # (Auto) 0.1, Basophils # (Auto) 0.0, Calcium Level 8.3 L SOULEYMANE BURGOS MD Aug 27, 2019 09:33
[2019-08-27 10:00] VITALS: BP 119/63
[2019-08-27 11:14] LABS: HEMATOCRIT 29.2 % (36.0-47.0); HEMOGLOBIN 9.1 g/dl (12.0-15.5); MEAN CORPUSCULAR HEMOGLOBIN 31.3 pg (27.0-33.0); MEAN CORPUSCULAR HGB CONC 31.2 g/dl (32.0-36.5); MEAN CORPUSCULAR VOLUME 100.3 fl (80.0-96.0); PLATELET COUNT, AUTOMATED 327 10^3/uL (150-450); RED BLOOD COUNT 2.91 10^6/uL (4.00-5.40); WHITE BLOOD COUNT 8.9 10^3/uL (4.0-10.0)
[2019-08-27 14:00] VITALS: BP 120/62
[2019-08-27 18:00] VITALS: BP 130/69
[2019-08-27] MEDS: CETIRIZINE (ZyrTEC) 10 MG TAB PO SCH (20:49)
[2019-08-27] MEDS: SIMVASTATIN 40 MG TAB PO SCH (20:50)
[2019-08-27] MEDS: lamoTRIgine 100MG TAB PO SCH (20:50)
[2019-08-27] MEDS: QUEtiapine FUMARATE 50 MG TAB PO SCH (20:50)
[2019-08-27 22:00] VITALS: BP 128/70
[2019-08-28 02:00] VITALS: BP 115/58
[2019-08-28 06:00] VITALS: BP 116/76
[2019-08-28 06:37] LABS: BLOOD UREA NITROGEN 14 MG/DL (7-18); CALCIUM LEVEL 8.8 MG/DL (8.8-10.2); CARBON DIOXIDE LEVEL 29 MEQ/L (21-32); CHLORIDE LEVEL 111 MEQ/L (98-107); CREATININE FOR GFR 0.56 MG/DL (0.55-1.30); GLOMERULAR FILTRATION RATE > 60.0 (>45); GLUCOSE, FASTING 193 MG/DL (70-100); POTASSIUM SERUM 3.8 MEQ/L (3.5-5.1); SODIUM LEVEL 144 MEQ/L (136-145)
[2019-08-28] MEDS: COMBIVENT RESPIMAT 100-20MCG INHALER 4GM INH SCH (07:18)
[2019-08-28] MEDS: buPROPion (WELLBUTRIN SR) 100 MG SR TAB PO SCH (09:00)
--- NOTE | 2019-08-28 09:54 | DS.PDOC ---
Discharge Summary General Date of Admission Aug 25, 2019 at 17:05 Date of Discharge 08/28/19 Discharge Summary PROCEDURES PERFORMED DURING STAY: None. ADMITTING DIAGNOSES: 1. Lower GI bleed, acute blood loss anemia. DISCHARGE DIAGNOSES: 1. Lower GI bleed, acute blood loss anemia, status post polypectomy. COMPLICATIONS/CHIEF COMPLAINT: Gi Bleed. HISTORY OF PRESENT ILLNESS: This is a 64-year-old who underwent colonoscopy with polypectomy 08/07/2019. She had multiple polyps removed, hemostat clips were required for several of the polypectomy sites. She was then subsequently hospitalized on 08/10/2019 to 08/15/2019 for pyelonephritis, Escherichia (E) coli cultured out of her urine culture. She then began to pass bright red blood per rectum today. She came to the emergency room and hemoglobin was down to 6.8 (was 10.2 on 08/22/2019). She is being admitted for stabilization and transfusion and monitoring. . HOSPITAL COURSE: [ 64 years old white female, status post colonoscopy with polypectomy on 08/07/2019. She had multiple polyps removed and clips were placed in at multiple sites. Patient came in with the chief complaint of bright red blood per rectum and hemoglobin was found to be 6.8, hence was admitted and had 4 units of PRBC transfused. Patient remained asymptomatic during her stay. She tolerated oral feeding very well. Hemoglobin remained stable and no more GI bleeding was noted Patient has no more evidence of active bleeding. She can be followed up with her GI as an outpatient for possible repeat colonoscopy if needed On patient request, I called her sister and updated on, patient's discharge plans Will continue all home medications on discharge, follow up with dr muse in one week DISCHARGE MEDICATIONS: Please see below. ALLERGIES: Please see below. PHYSICAL EXAMINATION ON DISCHARGE: VITAL SIGNS: Please see below. GENERAL: Normal Normal HEENT: PERRLA. Extraocular muscles intact NECK: Supple, no JVD, no lymphadenopathy CARDIOVASCULAR EXAMINATION: S1, S2, regular RESPIRATORY EXAMINATION: Clear to A&P ABDOMINAL EXAMINATION: , Soft, nontender, bowel sounds present EXTREMITIES: No clubbing, cyanosis, edema SKIN: Normal NEUROLOGICAL EXAMINATION: . No focal motor sensory deficit PSYCHIATRIC EXAMINATION: , Normal LABORATORY DATA: Please see below. IMAGING: Abdominal x-ray:Impression: Double pigtail right ureteral stent noted in place. Endoscopic lead position mucosal clips noted in the right colon. Moderate formed stool. Mild cardiomegaly. PROGNOSIS: Good ACTIVITY: As tolerated. DIET: As tolerated DISCHARGE PLAN: Follow with Dr. Ricardo in 1 week DISPOSITION: senior living . DISCHARGE INSTRUCTIONS: 1. As per discharge instructions. ITEMS TO FOLLOWUP ON ON OUTPATIENT: 1. Follow with Dr. Ricardo outpatient in one week. DISCHARGE CONDITION: Stable. TIME SPENT ON DISCHARGE: 38 minutes. Vital Signs/I&Os Vital Signs Date Time Temp Pulse Resp B/P (MAP) Pulse Ox O2 Delivery O2 Flow Rate FiO2 08/28/19 06:00 98.5 73 18 116/76 (89) 95 08/25/19 14:54 Room Air I&O- Last 24 Hours up to 6 AM 08/28/19 06:00 Intake Total 3100 ml Output Total 2900 ml Balance 200 ml Laboratory Data Labs 24H Laboratory Tests 2 08/27/19 10:55: Nucleated Red Blood Cells % (auto) 1.0H 08/27/19 11:19: Bedside Glucose (Misc Panel) 221H 08/27/19 16:31: Bedside Glucose (Misc Panel) 339H 08/27/19 20:27: Bedside Glucose (Misc Panel) 191H 08/28/19 05:37: Anion Gap 4L, Glomerular Filtration Rate > 60.0, Blood Urea Nitrogen 14, Creatinine 0.56, Sodium Level 144, Potassium Level 3.8, Chloride Level 111H, Carbon Dioxide Level 29, Calcium Level 8.8 CBC/BMP Laboratory Tests 08/27/19 10:55 Red Blood Count 2.91 L, Mean Corpuscular Volume 100.3 H, Mean Corpuscular Hemoglobin 31.3, Mean Corpuscular Hemoglobin Concent 31.2 L, Red Cell Distribution Width 18.2 H 08/28/19 05:37 Calcium Level 8.8 FSBS Laboratory Tests Test 08/27/19 11:19 08/27/19 16:31 08/27/19 20:27 Range/Units Bedside Glucose (Misc Panel) 221 339 191 80-115 MG/DL Discharge Medications Scheduled Acamprosate Calcium (Acamprosate Calcium) 333 Mg Tablet.dr, 666 MG PO BID, (Reported) Alendronate Sodium (Fosamax) 70 Mg Tab, 70 MG PO QWEEK, (Reported) SATURDAYS Bupropion HCl (Wellbutrin Sr) 100 Mg Tab.sr.12h, 100 MG PO BID, (Reported) Calcium Polycarbophil (Fibercon) 625 Mg Tablet, 625 MG PO BID, (Reported) Carbamide Peroxide (Debrox) 6.5 % Cami, 3 DROP AU ASDIRECTED, (Reported) FIRST 3 DAYS OF EACH MONTH Cetirizine HCl (Cetirizine HCl) 10 Mg Tablet, 10 MG PO QHS, (Reported) Dapagliflozin Propanediol (Farxiga) 10 Mg Tablet, 5 MG PO DAILY, (Reported) Esomeprazole Magnesium (Nexium) 40 Mg Cap, 40 MG PO DAILY, (Reported) Exenatide Microspheres (Bydureon) 2 Mg/0.65 Ml Pen.injctr, 2 MG SC QWEEK, (Reported) TUESDAYS Fenofibrate Nanocrystallized (Tricor) 145 Mg Tablet, 48 MG PO QHS, (Reported) Ferrous Sulfate (Ferrous Sulfate) 325 Mg Tablet, 325 MG PO BID, (Reported) Fluticasone Propionate (Flonase Allergy Relief) 50 Mcg/Act Spr, 2 SPRAY NA QHS, (Reported) Lamotrigine (Lamotrigine) 100 Mg Tablet, 200 MG PO QHS, (Reported) Linaclotide (Linzess) 145 Mcg Capsule, 145 MCG PO DAILY, (Reported) Linagliptin (Tradjenta) 5 Mg Tablet, 5 MG PO DAILY, (Reported) Magnesium Oxide (Magnesium Oxide) 400 Mg Tablet, 800 MG PO BID, (Reported) Metformin HCl (Metformin HCl) 1,000 Mg Tab, 1,000 MG PO BID, (Reported) Multivitamins (Thera M Plus Tablet) 1 Tab Tab, 1 TAB PO DAILY, (Reported) Quetiapine Fumarate (Seroquel) 50 Mg Tablet, 50 MG PO QHS, (Reported) Sertraline Hcl (Zoloft) 100 Mg Tab, 100 MG PO DAILY, (Reported) Simvastatin (Zocor) 40 Mg Tablet, 40 MG PO QHS, (Reported) Umeclidinium [place] (Incruse Ellipta) 62.5 Mcg Blst.w.dev, 1 PUFF INH DAILY, (Reported) Scheduled PRN Ammonium Lactate (Ammonium Lactate) 12% Lotion, 1 APLCT TOP BID PRN for DRY SKIN, (Reported) Polyethylene Glycol 3350 (Miralax) 119 Gm Powder, 17 GM PO DAILY PRN for CONSTIPATION, (Reported) dilute in 8 ounces of water or juice Sumatriptan Succinate (Sumatriptan Succinate) 25 Mg Tablet, 25 MG PO for MIGRAINE, (Reported) Allergies Coded Allergies: procaine (Verified Allergy, Intermediate, Hives, 07/20/19) SOULEYMANE BURGOS MD Aug 28, 2019 09:54
[2019-08-28 10:00] VITALS: BP 116/74
[2019-08-28] MEDS: PANTOPRAZOLE 40MG INJ (PROTONIX) (C9113) IV SCH (10:19)
[2019-08-28] MEDS: HumaLOG INSULIN (NovoLOG) PER UNIT SC SCH ×2 (10:19→12:34)
[2019-08-28] MEDS: ACAMPROSATE CALCIUM 333 MG TABLET (CAMPRAL) PO SCH (10:20)
[2019-08-28] MEDS: SERTRALINE 100 MG TAB PO SCH (10:20)
== END 2019-08-28 14:58 | disposition home or self-care (01) | DRG 920 ==
LOC: M ED 14:53 → M ED INP 17:05 → M MSPAV 20:09
PROVIDERS: ADMIT Internal Medicine; ATTEND Internal Medicine
PROC: 30233N1 Transfusion of Nonautologous Red Blood Cells into Peripheral Vein, Percutaneous Approach (ICD-10-PCS; principal; 2019-08-25)
DX: K91.840 Postprocedural hemorrhage of a digestive system organ or structure following a digestive system procedure (principal); D62 Acute posthemorrhagic anemia; K92.2 Gastrointestinal hemorrhage, unspecified; Z79.899 Other long term (current) drug therapy; Z88.8 Allergy status to other drugs, medicaments and biological substances; E78.5 Hyperlipidemia, unspecified; E11.9 Type 2 diabetes mellitus without complications; E21.3 Hyperparathyroidism, unspecified; J45.909 Unspecified asthma, uncomplicated; M81.0 Age-related osteoporosis without current pathological fracture; E87.6 Hypokalemia

== ENCOUNTER → 2019-08-25 | Outpatient (CLI) | payer MEDICARE, MEDICAID ==
[~2019-08-25] MED LIST changes: +AMMO12LO TOP; +GNP8.6TA PO; +LAMO100T80 PO; +SERO50TA PO; +TRIC145T22 PO; +ZYRTTAB8 PO; +campral PO
[2019-08-25 13:59] LABS: HEMATOCRIT 22.1 % (36.0-47.0); HEMOGLOBIN 6.8 g/dl (12.0-15.5); MEAN CORPUSCULAR HEMOGLOBIN 31.8 pg (27.0-33.0); MEAN CORPUSCULAR HGB CONC 30.8 g/dl (32.0-36.5); MEAN CORPUSCULAR VOLUME 103.3 fl (80.0-96.0); PLATELET COUNT, AUTOMATED 378 10^3/uL (150-450); RED BLOOD COUNT 2.14 10^6/uL (4.00-5.40); WHITE BLOOD COUNT 7.1 10^3/uL (4.0-10.0)
--- NOTE | 2019-08-25 14:29 | REP ---
Chest x-ray: Two views. History: Wheezing. Comparison study: August 10, 2019. Findings: The lungs are symmetrically aerated. No infiltrate is seen. There is plate-like atelectasis in the bases visible bilaterally. This is somewhat improved. Heart is mildly enlarged unchanged. Pulmonary vasculature is not increased. There are degenerative changes in the thoracic spine. Impression: Mild bibasilar plate-like atelectasis improved from the prior study. No acute infiltrate. Mild cardiomegaly. Electronically Signed by Javi Chaparro MD 08/25/2019 02:21 P
[2019-08-25 14:33] LABS: ALT/SGPT 27 U/L (12-78); BILIRUBIN,TOTAL 0.1 MG/DL (0.2-1.0); BLOOD UREA NITROGEN 33 MG/DL (7-18); CALCIUM LEVEL 8.6 MG/DL (8.8-10.2); CARBON DIOXIDE LEVEL 29 MEQ/L (21-32); CHLORIDE LEVEL 105 MEQ/L (98-107); CPK CREATINE PHOSPHOKINASE 39 U/L (26-192); CREATININE FOR GFR 0.58 MG/DL (0.55-1.30); GLOMERULAR FILTRATION RATE > 60.0 (>45); GLUCOSE, FASTING 155 MG/DL (70-100); NT-PRO BNP 36 PG/ML (<125); SODIUM LEVEL 142 MEQ/L (136-145); TOTAL PROTEIN 6.3 GM/DL (6.4-8.2); TROPONIN I < 0.02 NG/ML (< 0.10)
[2019-08-25 14:40] LABS: HEMOGLOBIN A1c 9.2 %
== END ==
LOC: M LAB 13:25
PROVIDERS: ATTEND Family Medicine
DX: J98.11 Atelectasis (principal); I51.7 Cardiomegaly; R06.2 Wheezing; E11.69 Type 2 diabetes mellitus with other specified complication

== ENCOUNTER → 2019-10-16 | Outpatient (CLI) | payer MEDICARE, MEDICAID ==
[~2019-10-16] MED LIST changes: +AMMO12LO TOP; +BASA100I SC; +FENO48TA13 PO; -FENO48TA2 PO; +GNP8.6TA PO; +LAMO100T80 PO; -SIMV40TA2 PO; +SIMV40TA20 PO
[2019-10-16 07:46] LABS: INR 1.06; PARTIAL THROMBOPLASTIN TIME 32.1 SECONDS (25.0-38.4); PROTHROMBIN TIME 13.6 SECONDS (11.8-14.0)
[2019-10-16 08:20] LABS: BLOOD UREA NITROGEN 23 MG/DL (7-18); CALCIUM LEVEL 9.6 MG/DL (8.8-10.2); CARBON DIOXIDE LEVEL 28 MEQ/L (21-32); CHLORIDE LEVEL 109 MEQ/L (98-107); CREATININE FOR GFR 0.61 MG/DL (0.55-1.30); GLOMERULAR FILTRATION RATE > 60.0 (>45); GLUCOSE, FASTING 184 MG/DL (70-100); POTASSIUM SERUM 4.3 MEQ/L (3.5-5.1); SODIUM LEVEL 150 MEQ/L (136-145)
[2019-10-16 08:22] LABS: AMORPHOUS SEDIMENT SMALL (NEGATIVE); APPEARANCE, URINE TURBID (CLEAR); BACTERIA, URINE AUTO 3+ (NEGATIVE); BILIRUBIN, URINE AUTO NEGATIVE (NEGATIVE); BLOOD, URINE BLOOD 2+ (NEGATIVE); COLOR, URINE YELLOW (YELLOW); GLUCOSE, URINE (UA) AUTO 3+ mg/dL (NEGATIVE); KETONE, URINE AUTO NEGATIVE (NEGATIVE); LEUKOCYTE ESTERASE, URINE AUTO 3+ (NEGATIVE); NITRITE, URINE AUTO POSITIVE (NEGATIVE); PROTEIN, URINE AUTO 2+ mg/dL (NEGATIVE); RBC, URINE AUTO TNTC /HPF (0-3); SPECIFIC GRAVITY URINE AUTO 1.016 (1.002-1.035); SQUAMOUS EPITHELIAL CELL UR AU 0 /HPF (0-6); UROBILINOGEN, URINE AUTO 0.2 mg/dL (0.0-2.0); WBC, URINE AUTO TNTC /HPF (0-3)
[2019-10-16 09:00] LABS: HEMATOCRIT 41.7 % (36.0-47.0); MEAN CORPUSCULAR HEMOGLOBIN 25.1 pg (27.0-33.0); MEAN CORPUSCULAR HGB CONC 28.8 g/dl (32.0-36.5); MEAN CORPUSCULAR VOLUME 87.1 fl (80.0-96.0); PLATELET COUNT, AUTOMATED 509 10^3/uL (150-450); RED BLOOD COUNT 4.79 10^6/uL (4.00-5.40); WHITE BLOOD COUNT 5.2 10^3/uL (4.0-10.0)
== END ==
LOC: M LAB 06:30
PROVIDERS: ATTEND Nurse Practitioner Family
DX: Z01.818 Encounter for other preprocedural examination (principal); N13.5 Crossing vessel and stricture of ureter without hydronephrosis

== ENCOUNTER → 2019-10-21 | Outpatient (CLI) | payer MEDICARE, MEDICAID ==
[2019-10-21 11:57] LABS: HEMATOCRIT 43.1 % (36.0-47.0); HEMOGLOBIN 12.3 g/dl (12.0-15.5); MEAN CORPUSCULAR HEMOGLOBIN 24.7 pg (27.0-33.0); MEAN CORPUSCULAR HGB CONC 28.5 g/dl (32.0-36.5); MEAN CORPUSCULAR VOLUME 86.7 fl (80.0-96.0); PLATELET COUNT, AUTOMATED 395 10^3/uL (150-450); RED BLOOD COUNT 4.97 10^6/uL (4.00-5.40); WHITE BLOOD COUNT 3.9 10^3/uL (4.0-10.0)
[2019-10-21 12:20] LABS: ALT/SGPT 29 U/L (12-78); BILIRUBIN,DIRECT < 0.1 MG/DL (0.0-0.2); BILIRUBIN,TOTAL 0.1 MG/DL (0.2-1.0); BLOOD UREA NITROGEN 20 MG/DL (7-18); CALCIUM LEVEL 9.2 MG/DL (8.8-10.2); CARBON DIOXIDE LEVEL 34 MEQ/L (21-32); CHLORIDE LEVEL 109 MEQ/L (98-107); CHOLESTEROL LEVEL 174 MG/DL (<200); CHOLESTEROL RISK RATIO 2.676 (<5); CPK CREATINE PHOSPHOKINASE 210 U/L (26-192); GLOMERULAR FILTRATION RATE > 60.0 (>45); GLUCOSE, FASTING 117 MG/DL (70-100); HDL CHOLESTEROL 65 MG/DL (>40); LDL CHOLESTEROL 88 MG/DL (<100); NON-HDL-C 109 MG/DL; POTASSIUM SERUM 4.1 MEQ/L (3.5-5.1); SODIUM LEVEL 147 MEQ/L (136-145); TOTAL PROTEIN 7.1 GM/DL (6.4-8.2); TRIGLYCERIDES LEVEL 106 MG/DL (<150)
[2019-10-23 09:26] LABS: TOTAL 25(OH) VITAMIN D 25.5 NG/ML (30.0-100.0)
== END ==
LOC: M WUC 08:57
PROVIDERS: ATTEND Family Medicine
DX: E11.9 Type 2 diabetes mellitus without complications (principal); D50.8 Other iron deficiency anemias; E78.2 Mixed hyperlipidemia; E55.9 Vitamin D deficiency, unspecified

== ENCOUNTER 2019-10-26 10:19 | Day surgery (SDC) | payer MEDICARE, MEDICAID ==
[~2019-10-26] VITALS: Ht 152.4 cm; Wt 56.4 kg
[~2019-10-26 10:19] MED LIST changes: +LIDOCAINE 1% MDV 20ML VIAL SQ PRN; +LR 1,000 ML IV ONE; +ceFAZolin SOD 2 GM in IV 1 EA IV ONE
[2019-10-26] MEDS ORDERED: dexameTHASONE 4 MG/ML 1ML VIAL (J1100) As Ordered ONE (10:23)
[2019-10-26] MEDS ORDERED: ONDANSETRON 4MG/2ML VIAL (J2405) As Ordered ONE (10:23)
[2019-10-26] MEDS ORDERED: PROPOFOL 200 MG/20 ML VIAL As Ordered ONE (10:23)
[2019-10-26] MEDS ORDERED: LIDOCAINE 2% INJ 100 MG/5 ML SDV (FOR ANES.) As Ordered ONE (10:23)
[2019-10-26] MEDS ORDERED: PROPOFOL 500 MG/50 ML VIAL As Ordered ONE (10:32)
[2019-10-26] MEDS ORDERED: fentaNYL 100 MCG/2 ML INJECTION (J3010) As Ordered ONE (10:44)
[2019-10-26] MEDS ORDERED: CONRAY-60 60% 50ML VIAL (Q9961) As Ordered ONE (10:48)
[2019-10-26] MEDS ORDERED: LIDOCAINE 2% 5ML JELLY UROJET As Ordered ONE (10:48)
--- NOTE | 2019-10-26 11:54 | REP ---
Clinical: Ureteral stent exchange. Technique: Intraoperative fluoroscopic imaging. Findings: Right ureteral stent in satisfactory position. Marked right hydronephrosis noted. Total fluoroscopic time 22 seconds. Impression: Right ureteral stent in satisfactory position. Electronically Signed by Dhiraj Jo MD 10/26/2019 11:46 A
[2019-10-26 12:14] VITALS: BP 130/89
--- NOTE | 2019-10-26 12:15 | ROOPDOC ---
[facility] Report Of Operation Report of Operation DATE OF PROCEDURE: 10/26/19 PREPROCEDURE DIAGNOSIS: Right ureteral stricture. POSTPROCEDURE DIAGNOSIS: Right ureteral stricture. PROCEDURE: Cystoscopy, right ureteral stent exchange, right retrograde pyelogram with intraoperative interpretation of images. SURGEON: Dr. Forest Gan PR SPECIALIST: None. ANESTHESIA: MAC. OPERATIVE INDICATIONS: This is a 64-year-old female with a right ureteral stricture that has been managed with chronic ureteral stenting. She was brought to the operating room today for routine stent exchange. DESCRIPTION OF PROCEDURE: The patient was brought to the operating room where MAC anesthesia was administered. Prophylactic antibiotics were infused. She was placed in dorsal lithotomy position and then prepped and draped in the usual sterile fashion. A rigid cystoscope inserted into the urethral meatus and advanced into the bladder. Once inside the bladder the previously placed right ureteral stent was seen. Of note, the distal end of the stent had a small amount of calcifications on it, which was a significant improvement from what has been seen previously at the time of stent changes. At this point, the distal end of the stent was grasped and the stent was withdrawn until the end was protruding from the urethral meatus. A guidewire was then advanced up the stent and into the right renal pelvis. A 5 Samoan open ended ureteral catheter was then advanced up the wire and into the right collecting system. The wire was removed and a retrograde pyelogram was performed. It was notable for moderate right hydronephrosis with no extravasation. The guidewire was then advanced back up the right collecting system and the open ended ureteral catheter was removed. The guidewire was then utilized to advance a 7 Samoan x 24 cm black silicone stent into the right collecting system. The wire was removed and there were adequate curls of the stent in the right renal pelvis and in the bladder. The b ladder was emptied of all fluid and this marked the conclusion of the procedure. The patient was then taken out of the dorsal lithotomy position, awakened from anesthesia and transported to the recovery room in stable condition. Estimated blood loss: 5 mL. Complications: None. Specimen: None. Plan: Will arrange for the patient to have a renal ultrasound in 3 months and have her follow up in clinic afterward. If there is minimal to no hydronephrosis, we will keep the stent in longer. FOREST GAN MD Oct 26, 2019 12:15
== END 2019-10-26 12:22 | disposition home or self-care (01) ==
LOC: M SDC 10:19
PROVIDERS: ATTEND Urology
DX: N13.5 Crossing vessel and stricture of ureter without hydronephrosis (principal); E11.69 Type 2 diabetes mellitus with other specified complication; J44.9 Chronic obstructive pulmonary disease, unspecified; K21.9 Gastro-esophageal reflux disease without esophagitis; E78.2 Mixed hyperlipidemia; E04.1 Nontoxic single thyroid nodule; K58.9 Irritable bowel syndrome, unspecified; M19.90 Unspecified osteoarthritis, unspecified site; G47.30 Sleep apnea, unspecified; M81.0 Age-related osteoporosis without current pathological fracture; G43.001 Migraine without aura, not intractable, with status migrainosus; E55.9 Vitamin D deficiency, unspecified; F32.9 Major depressive disorder, single episode, unspecified; R32 Unspecified urinary incontinence; R15.9 Full incontinence of feces; G43.909 Migraine, unspecified, not intractable, without status migrainosus; M25.561 Pain in right knee; F10.10 Alcohol abuse, uncomplicated; E78.5 Hyperlipidemia, unspecified; F41.9 Anxiety disorder, unspecified; Z88.4 Allergy status to anesthetic agent; Z87.891 Personal history of nicotine dependence; Z79.899 Other long term (current) drug therapy; Z79.4 Long term (current) use of insulin
CPT/HCPCS: 52332; 74420; C1769; C2617; J0690; J1100; J2405; J3010; Q9961

== ENCOUNTER → 2019-10-30 | Outpatient (CLI) | payer MEDICARE, MEDICAID ==
[~2019-10-30] MED LIST changes: +E-Z-GAS II EFFERVESCENT PACKET (SODIUM BICARB./CITRIC ACID/SIMETHICONE) As Ordered ONE; +E-Z-HD 98% w/w 340GM SUSP BTL As Ordered ONE; +E-Z-PAQUE 96% w/w SUSP 176GM BTL As Ordered ONE; -LIDOCAINE 1% MDV 20ML VIAL SQ PRN; -LR 1,000 ML IV ONE; -ceFAZolin SOD 2 GM in IV 1 EA IV ONE
--- NOTE | 2019-10-30 09:49 | REP ---
RIGHT UPPER QUADRANT ULTRASOUND: Real-time sonographic evaluation of the right upper quadrant performed. Gallbladder demonstrates multiple tiny polyps along the inner wall 5 mm maximally due to mild sludge. There is no gallbladder wall thickening or pericholecystic fluid. There is no intrahepatic biliary dilatation. Common bile duct is upper limits of normal at 7 mm. Liver demonstrates heterogeneous echo texture which may indicate some degree of fibrofatty infiltration. No gross liver or pancreatic mass is seen. Right kidney is somewhat enlarged. Length is 15.6 cm. There is mild hydronephrosis. There appears to be echogenic calculus in the lower pole of the right kidney 1.9 cm in diameter. An echogenic stent is seen in the region of the renal pelvis. IMPRESSION: Multiple polyps in the gallbladder up to 5 mm. Mild gallbladder sludge with no wall thickening. Common bile duct upper limits of normal at 7 mm. Heterogeneous echotexture of the liver may indicate some degree of fibrofatty infiltration. Mild right hydronephrosis with stone, lower pole 1.9 cm. Electronically Signed by Donny Peña MD 10/30/2019 03:48 P
--- NOTE | 2019-10-30 18:06 | REP ---
UPPER GI AIR CONTRAST AND SMALL BOWEL FOLLOW THROUGH The procedure was performed under the direct supervision of Dr. Chaparro. The images were reviewed with Dr. Chaparro The supervisor garage film shows no organomegaly or pathological masses. The intestinal gas pattern is non-specific. There is a double pigtail ureteral stent in place on the right. Liquid barium and gas producing crystals were given in the erect position as well as liquid barium in the prone oblique position in order to perform a double contrast upper GI examination. Additionally liquid barium was given at the end of the examination in order to perform a small bowel follow through. The oral and pharyngeal stages of deglutition are unremarkable. There are esophageal transport there are tertiary waves demonstrated. There is no esophagitis, stricture or mucosal ring. There is a small sliding-type hiatal hernia. Gastroesophageal reflux is not demonstrated on this examination. The stomach solo are normally outlined . The rugal folds are smooth and regular. There is no gastritis neoplasm or ulcer disease. The duodenal solo are normally outlined . The mucosal folds are smooth and regular. There is no duodenitis pancreatitis peptic ulcer disease or neoplasm. The visualized portion of the proximal small bowel appears normal in course and caliber. The barium column was followed through the small bowel to the level of the terminal ileum. Small bowel transit time is approximately 3 hours . During fluoroscopy gentle palpation shows all loops are freely movable and pliable. There are no fixed or angulated loops. The small bowel mucosal pattern is normal in course and caliber. There is no transition to suggest a partial small-bowel obstruction. Spot filming of the terminal ileum shows it to be unremarkable. Impression: 1. Tertiary waves. 2. There is a small sliding-type hiatal hernia. 3.3 minutes of fluoro time was utilized for this procedure. Electronically Signed by IZZY Encarnacion 10/30/2019 05:03 P Electronically Signed by Javi Chaparro MD 10/30/2019 05:57 P
== END ==
LOC: M RAD 08:31
PROVIDERS: ATTEND Internal Medicine Gastroenterology
DX: R11.0 Nausea (principal); K44.9 Diaphragmatic hernia without obstruction or gangrene

== ENCOUNTER → 2019-11-27 | Outpatient (CLI) | payer MEDICARE, MEDICAID ==
[~2019-11-27] MED LIST changes: -E-Z-GAS II EFFERVESCENT PACKET (SODIUM BICARB./CITRIC ACID/SIMETHICONE) As Ordered ONE; -E-Z-HD 98% w/w 340GM SUSP BTL As Ordered ONE; -E-Z-PAQUE 96% w/w SUSP 176GM BTL As Ordered ONE
[2019-11-27 07:17] LABS: BASO % 0.4 % (0.0-1.0); EOS # 0.1 10^3/uL (0.0-0.5); HEMATOCRIT 47.6 % (36.0-47.0); HEMOGLOBIN 13.5 g/dl (12.0-15.5); LYMPH # 0.8 10^3/uL (1.5-5.0); LYMPH % 11.4 % (24.0-44.0); MEAN CORPUSCULAR HEMOGLOBIN 24.2 pg (27.0-33.0); MEAN CORPUSCULAR HGB CONC 28.4 g/dl (32.0-36.5); MEAN CORPUSCULAR VOLUME 85.2 fl (80.0-96.0); MONO # 0.4 10^3/uL (0.0-0.8); MONO % 6.2 % (0.0-5.0); NEUTROPHILS # 5.5 10^3/uL (1.5-8.5); NEUTROPHILS % 80.6 % (36.0-66.0); PLATELET COUNT, AUTOMATED 497 10^3/uL (150-450); RED BLOOD COUNT 5.59 10^6/uL (4.00-5.40); WHITE BLOOD COUNT 6.8 10^3/uL (4.0-10.0)
[2019-11-27 07:43] LABS: BLOOD UREA NITROGEN 24 MG/DL (7-18); CREATININE FOR GFR 0.64 MG/DL (0.55-1.30); FERRITIN 23 NG/ML (8-252); GLOMERULAR FILTRATION RATE > 60.0 (>45); IRON (FE) 108 UG/DL (50-170); PERCENT SATURATION 23.2 % (13.2-45.0); TOTAL IRON BINDING CAPACITY 465 UG/DL (250-450)
[2019-11-27 09:01] LABS: FOLATE 23.6 NG/ML
[2019-11-27 09:27] LABS: VITAMIN B12 LEVEL 728 PG/ML
== END ==
LOC: M LAB 06:33
PROVIDERS: ATTEND Internal Medicine Gastroenterology
DX: R11.0 Nausea (principal); D64.9 Anemia, unspecified

== ENCOUNTER → 2019-12-12 | Outpatient (CLI) | payer MEDICARE, MEDICAID ==
[~2019-12-12] MED LIST changes: -FENO48TA13 PO; +FENO48TA7 PO
[2019-12-12 06:56] LABS: HEMATOCRIT 46.5 % (36.0-47.0); HEMOGLOBIN 13.3 g/dl (12.0-15.5); MEAN CORPUSCULAR HEMOGLOBIN 24.1 pg (27.0-33.0); MEAN CORPUSCULAR HGB CONC 28.6 g/dl (32.0-36.5); MEAN CORPUSCULAR VOLUME 84.2 fl (80.0-96.0); PLATELET COUNT, AUTOMATED 360 10^3/uL (150-450); RED BLOOD COUNT 5.52 10^6/uL (4.00-5.40); WHITE BLOOD COUNT 5.5 10^3/uL (4.0-10.0)
[2019-12-12 07:28] LABS: PERCENT SATURATION 10.6 % (13.2-45.0)
== END ==
LOC: M LAB 06:25
PROVIDERS: ATTEND Family Medicine
DX: D50.8 Other iron deficiency anemias (principal)

== ENCOUNTER → 2020-02-09 | Outpatient (CLI) | payer MEDICARE, MEDICAID ==
--- NOTE | 2020-02-09 11:37 | REP ---
RENAL ULTRASOUND: Real-time sonographic evaluation of the kidneys performed. Right kidney measures 12.8 x 6.8 x 6.6 cm and left kidney 14.1 x 7.5 x 6.3 cm. Both kidneys are hyperechoic suggesting medical renal disease. There is moderate right hydronephrosis and mild left hydronephrosis. With duplex Doppler evaluation resistive index right kidney is 0.67 and left kidney is 0.58. In the dilated right pelvicalyceal system there is layering debris. There is a 1.1 cm echogenic focus likely representing a calculus in the lower pole of the right kidney. Stent is seen in the right renal pelvis. Three subcentimeter cysts are seen in the mid left kidney. Urinary bladder demonstrates a moderate amount of debris and the right ureteral stent is visualized within the bladder lumen. IMPRESSION: Hyperechoic kidneys suggests medical renal disease. Moderate right hydronephrosis with layering debris. Right ureteral stent appears to be in good position. There appears to be a calculus in the lower pole of the right kidney 1.1 cm in diameter. Mild left hydronephrosis. Urinary bladder contains debris. Electronically Signed by Donny Peña MD 02/09/2020 02:07 P
== END ==
LOC: M RAD 09:52
PROVIDERS: ATTEND Urology
DX: N13.1 Hydronephrosis with ureteral stricture, not elsewhere classified (principal)

== ENCOUNTER → 2020-02-12 | Outpatient (CLI) | payer MEDICARE, MEDICAID ==
[2020-02-12 21:04] LABS: BLOOD UREA NITROGEN 24 MG/DL (7-18); CALCIUM LEVEL 9.6 MG/DL (8.8-10.2); CARBON DIOXIDE LEVEL 33 MEQ/L (21-32); CHLORIDE LEVEL 103 MEQ/L (98-107); CREATININE FOR GFR 0.62 MG/DL (0.55-1.30); GLOMERULAR FILTRATION RATE > 60.0 (>45); GLUCOSE, FASTING 90 MG/DL (70-100); POTASSIUM SERUM 4.4 MEQ/L (3.5-5.1); SODIUM LEVEL 141 MEQ/L (136-145)
== END ==
LOC: M WUC 15:44
PROVIDERS: ATTEND Nurse Practitioner Family
DX: N13.5 Crossing vessel and stricture of ureter without hydronephrosis (principal)

== ENCOUNTER → 2020-04-10 | Outpatient (CLI) | payer MEDICARE, MEDICAID ==
--- NOTE | 2020-04-10 15:57 | REPMRS ---
Patient History The patient states she had a clinical breast exam in March 2020.No known family history of cancer. No Hormone Replacement Therapy Digital Woman Screen Mammo: April 10, 2020 - Exam #: [id number] Bilateral CC and MLO view(s) were taken. Technologist: Mare Lea, Technologist Prior study comparison: November 17, 2018, bilateral digital woman screen mammo performed at [facility]. November 03, 2017, digital woman screen mammo performed at [facility]. August 14, 2016, digital woman screen mammo performed at [facility]. FINDINGS: The breast tissue is extremely dense which could obscure a lesion on mammography. The Volpara volumetric breast density category is: D. There is an extremely dense symmetrical pattern of residual fibroglandular tissue. There has been no change in the appearance of the mammogram from the previous studies. There is no interval development of dominant mass, archetectural distortion, or grouped microcalcifications suggestive of malignancy. 3-D tomosynthesis shows no additional findings. Assessment: BI-RADS/ACR category 1 mammogram. Negative Mammogram. Recommendation Routine screening mammogram of both breasts in 1 year (for women over age 40). This patient's Lifetime Breast Cancer RIsk is estimated at 8.3 %. This mammogram was interpreted with the aid of an FDA-approved computer-aided dectection system. Electronically Signed By: Baljinder Chaparro MD 04/10/20 [id number]
== END ==
LOC: M WHC 14:48
PROVIDERS: ATTEND Family Medicine
DX: Z12.31 Encounter for screening mammogram for malignant neoplasm of breast (principal); M85.88 Other specified disorders of bone density and structure, other site

== ENCOUNTER → 2020-04-10 | Outpatient (REF) | payer MEDICARE, MEDICAID | LOC: M SFHCWAGY 17:26 | PROVIDERS: ATTEND Nurse Practitioner Family | DX: Z12.4 Encounter for screening for malignant neoplasm of cervix (principal); N95.2 Postmenopausal atrophic vaginitis; Z12.12 Encounter for screening for malignant neoplasm of rectum | CPT/HCPCS: 82270; G0101; G0123 ==

== ENCOUNTER → 2020-05-13 | Outpatient (CLI) | payer MEDICARE, MEDICAID ==
--- NOTE | 2020-05-13 13:03 | REP ---
RENAL ULTRASOUND: Real-time sonographic evaluation of the kidneys performed. Both kidneys demonstrate hyperechoic echotexture diffusely suggesting medical renal disease. Right kidney measures 13.8 x 6.8 x 6.1 cm and left kidney 15.4 x 7.7 x 6.6 cm. There is moderate to severe right hydronephrosis. There is mild to moderate left hydronephrosis. There is a stent in the right renal pelvis. Small amount of air is seen in the right renal collecting system. Elevated resistive index is noted of the right kidney with duplex Doppler evaluation at 0.70. There are a few scattered subcentimeter cysts at the left kidney. Resistive index left kidney 0.58. Urinary bladder is minimally distended and demonstrates ureteral stent in the bladder lumen. IMPRESSION: Moderate to severe right hydronephrosis is probably somewhat worse than the prior study of 02/09/2020. In addition, there appears to be air in the right renal collecting system. Mild to moderate left hydronephrosis is also probably mildly increased. Electronically Signed by Donny Peña MD 05/13/2020 07:31 P
== END ==
LOC: M RAD 09:32
PROVIDERS: ATTEND Nurse Practitioner Women's Health
DX: N35.92 Unspecified urethral stricture, female (principal)

== ENCOUNTER → 2020-05-15 | Outpatient (CLI) | payer MEDICARE, MEDICAID ==
[~2020-05-15] MED LIST changes: -ALL10TAB29 PO; +CETI-24 PO; +GABA-843 PO; +NITR1CAP11 PO; +OMEP-218 PO
[2020-05-15 13:21] LABS: BLOOD UREA NITROGEN 31 MG/DL (7-18); CALCIUM LEVEL 10.5 MG/DL (8.8-10.2); CARBON DIOXIDE LEVEL 31 MEQ/L (21-32); CHLORIDE LEVEL 104 MEQ/L (98-107); CREATININE FOR GFR 0.71 MG/DL (0.55-1.30); GLOMERULAR FILTRATION RATE > 60.0 (>45); GLUCOSE, FASTING 146 MG/DL (70-100); POTASSIUM SERUM 4.3 MEQ/L (3.5-5.1); SODIUM LEVEL 143 MEQ/L (136-145)
== END ==
LOC: M WUC 09:21
PROVIDERS: ATTEND Nurse Practitioner Women's Health
DX: N13.5 Crossing vessel and stricture of ureter without hydronephrosis (principal)

== ENCOUNTER → 2020-05-30 | Outpatient (CLI) | payer MEDICARE, MEDICAID ==
--- NOTE | 2020-05-30 13:36 | REP ---
RENAL AND BLADDER ULTRASOUND: Real-time sonographic evaluation of the kidneys performed. The kidneys are increased in echotexture suggesting medical renal disease. Right kidney measures 13.3 x 7.4 x 5.5 cm and left kidney 5.0 x 7.2 x 7.9 cm. There are moderate right hydronephrosis. There is mild left hydronephrosis. With duplex Doppler evaluation, right kidney is 0.61 and left kidney 0.63. Stent is seen in the right renal pelvis. Stent is also seen in the right side of the bladder posteriorly. IMPRESSION: Moderates hydronephrosis on the right and mild hydronephrosis on the left not significantly changed compared to a prior study of 05/13/2020. BLADDER ULTRASOUND: Real-time sonographic evaluation of the urinary bladder are performed. Bladder measures 6.3 x 6.2 x 2.6 cm for a total volume of 66 mL. Ureteral jets are not visualized with Doppler color evaluation. Ureteral stent is seen in the right base of the bladder. No gross bladder mass is seen. There is no postvoid residual. IMPRESSION: Suboptimal distention. Ureteral stent is seen in the bladder lumen. No gross abnormality.
== END ==
LOC: M WHC 10:15
PROVIDERS: ATTEND Nurse Practitioner Family
DX: N13.5 Crossing vessel and stricture of ureter without hydronephrosis (principal); Z96.0 Presence of urogenital implants

== ENCOUNTER → 2020-06-04 | Outpatient (CLI) | payer MEDICARE, MEDICAID ==
[2020-06-04 19:58] LABS: HEMOGLOBIN 14.1 g/dl (12.0-15.5); MEAN CORPUSCULAR HEMOGLOBIN 29.7 pg (27.0-33.0); MEAN CORPUSCULAR HGB CONC 30.7 g/dl (32.0-36.5); PLATELET COUNT, AUTOMATED 307 10^3/uL (150-450); RED BLOOD COUNT 4.74 10^6/uL (4.00-5.40); WHITE BLOOD COUNT 3.4 10^3/uL (4.0-10.0)
[2020-06-04 20:20] LABS: PERCENT SATURATION 23.9 % (13.2-45.0)
== END ==
LOC: M WUC 12:00
PROVIDERS: ATTEND Family Medicine
DX: D50.8 Other iron deficiency anemias (principal)

== ENCOUNTER → 2020-06-18 | Outpatient (REF) | payer MEDICARE, MEDICAID ==
[2020-07-12 10:50] LABS: APPEARANCE, URINE TURBID (CLEAR); BACTERIA, URINE AUTO 1+ (NEGATIVE); BILIRUBIN, URINE AUTO NEGATIVE (NEGATIVE); BLOOD, URINE BLOOD 1+ (NEGATIVE); COLOR, URINE YELLOW (YELLOW); GLUCOSE, URINE (UA) AUTO 3+ mg/dL (NEGATIVE); KETONE, URINE AUTO NEGATIVE (NEGATIVE); LEUKOCYTE ESTERASE, URINE AUTO 3+ (NEGATIVE); MUCUS, URINE SMALL (NEGATIVE); NITRITE, URINE AUTO NEGATIVE (NEGATIVE); PROTEIN, URINE AUTO 2+ mg/dL (NEGATIVE); RBC, URINE AUTO 27 /HPF (0-3); SPECIFIC GRAVITY URINE AUTO 1.013 (1.002-1.035); SQUAMOUS EPITHELIAL CELL UR AU 0 /HPF (0-6); UROBILINOGEN, URINE AUTO 0.2 mg/dL (0.0-2.0); WBC, URINE AUTO TNTC /HPF (0-3)
== END ==
LOC: M SMT 15:12
PROVIDERS: ATTEND Nurse Practitioner Family
DX: Z01.818 Encounter for other preprocedural examination (principal); N13.5 Crossing vessel and stricture of ureter without hydronephrosis

== ENCOUNTER → 2020-06-18 | Outpatient (CLI) | payer MEDICARE, MEDICAID ==
--- NOTE | 2020-07-24 11:34 | REP ---
CHEST X-RAY: 2-VIEWS HISTORY: Ureteral stone on the right. Preoperative testing. COMPARISON: 08/25/2019. This report was delayed due to a protracted episode of computer network disruption experienced by this facility. FINDINGS: The lungs are symmetrically some hyperinflated and free of infiltrate. Pleural angles are sharp. Heart size is mildly enlarged with cardiothoracic ratio measuring 50.1%. There are degenerative disc changes in the thoracic spine. Pulmonary vasculature is not increased. There is evidence of chronic enlargement of the right thyroid with the trachea deviated to the left at the level of the thoracic inlet from comparison radiographs. IMPRESSION: Enlarged right thyroid. Otherwise no acute disease. Mild cardiomegaly. MTDD
--- NOTE | 2020-08-14 11:17 | ECGEPIP ---
[facility] Test Date: 2020-06-18 Pat Name: JOHANNA WILSON Department: Room: - Gender: Female Financial Agent: NIKHIL : 1955 Requested By: FOREST Blackburn Order Number: [id number] Reading MD: Garth Brown Measurements Intervals [place] Rate: 57 P: 57 HI: 168 QRS: 9 QRSD: 119 T: 86 QT: 432 QTc: 423 Interpretive Statements SINUS BRADYCARDIA MODERATE INTRAVENTRICULAR CONDUCTION DELAY NONSPECIFIC T-WAVE ABNORMALITY BORDERLINE ECG CLINICAL CORRELATION ADVISED SEE SCANNED DOWNTIME REPORT
== END ==
LOC: M RAD 16:15
PROVIDERS: ATTEND Nurse Practitioner Family
DX: Z01.818 Encounter for other preprocedural examination (principal); N13.5 Crossing vessel and stricture of ureter without hydronephrosis

== ENCOUNTER → 2020-06-20 | Outpatient (REF) | payer MEDICARE, MEDICAID ==
[2020-07-16 12:26] LABS: INR 0.99; PARTIAL THROMBOPLASTIN TIME 31.3 SECONDS (25.0-38.4); PROTHROMBIN TIME 13.3 SECONDS (11.8-14.0)
[2020-07-28 09:05] LABS: BLOOD UREA NITROGEN 27 MG/DL (7-18); CALCIUM LEVEL 9.3 MG/DL (8.8-10.2); CARBON DIOXIDE LEVEL 31 MEQ/L (21-32); CHLORIDE LEVEL 105 MEQ/L (98-107); CREATININE FOR GFR 0.65 MG/DL (0.55-1.30); GLOMERULAR FILTRATION RATE > 60.0 (>45); GLUCOSE, FASTING 114 MG/DL (70-100); POTASSIUM SERUM 3.6 MEQ/L (3.5-5.1); SODIUM LEVEL 141 MEQ/L (136-145)
[2020-09-24 09:41] LABS: HEMATOCRIT 47.4 % (36.0-47.0); HEMOGLOBIN 14.8 g/dl (12.0-15.5); MEAN CORPUSCULAR HEMOGLOBIN 30.4 pg (27.0-33.0); MEAN CORPUSCULAR HGB CONC 31.2 g/dl (32.0-36.5); MEAN CORPUSCULAR VOLUME 97.3 fl (80.0-96.0); PLATELET COUNT, AUTOMATED 274 10^3/uL (150-450); RED BLOOD COUNT 4.87 10^6/uL (4.00-5.40); WHITE BLOOD COUNT 3.7 10^3/uL (4.0-10.0)
== END ==
LOC: M LABSMT 10:53
PROVIDERS: ATTEND Nurse Practitioner Family
DX: Z01.818 Encounter for other preprocedural examination (principal); N13.5 Crossing vessel and stricture of ureter without hydronephrosis

== ENCOUNTER → 2020-06-20 | Outpatient (CLI) | payer MEDICARE, MEDICAID ==
--- NOTE | 2020-08-09 15:32 | REP ---
THYROID ULTRASOUND INDICATION: Non-toxic new goiter. DATE: 06/20/2020. NOTE: Delay in reporting results from hospital computer malfunction as a result of a malware attack. FINDINGS: The thyroid right lobe measures 6.6 x 4.1 x 4.2 cm and the thyroid right lobe measures 5.5 x 1.6 x 1.8 cm. The isthmus measures 5.6 mm in thickness. The thyroid is diffusely enlarged. At the mid to lower pole of the right lobe there is a large solid thyroid mass measuring 5.0 x 3.6 x 4.3 cm. The thyroid parenchyma is effaced around the periphery of this mass. In the upper pole there is a 0.8 nodule and in the lower pole there is a 0.6 cm nodule. The smaller nodules are likely adenomatous cysts. In the isthmus, there are two nodules each measuring 4 mm. In the left lobe, there are three nodules measuring 5-7 mm each, likely thyroid adenomatous cysts. IMPRESSION: There is a large mass in the right lobe mid. I would recommend ultrasound-guided biopsy of this mass. Additionally, a radionuclide thyroid scan might be considered. There are other smaller nodules, likely thyroid adenomatous cysts. The entire gland is diffusely enlarged. MTDD
== END ==
LOC: M WHC 13:09
PROVIDERS: ATTEND Family Medicine
DX: E04.9 Nontoxic goiter, unspecified (principal); Z79.899 Other long term (current) drug therapy

== ENCOUNTER → 2020-07-11 | Outpatient (CLI) | payer MEDICARE, MEDICAID | LOC: M LABSMTC 11:18 | PROVIDERS: ATTEND Anesthesiology | DX: Z01.812 Encounter for preprocedural laboratory examination (principal); Z20.828 Contact with and (suspected) exposure to other viral communicable diseases ==

== ENCOUNTER 2020-07-16 06:57 | Day surgery (SDC) | payer MEDICARE, MEDICAID ==
[~2020-07-16] VITALS: Ht 156.2 cm; Wt 55.2 kg
[~2020-07-16 06:57] MED LIST changes: -GABA-843 PO; -NITR1CAP11 PO; -OMEP-218 PO
[2020-07-16] MEDS ORDERED: LIDOCAINE 2% 100MG/5ML SDV (FOR ANES.) As Ordered ONE (07:09)
[2020-07-16] MEDS ORDERED: propofoL 200 MG/20 ML VIAL As Ordered ONE (07:09)
[2020-07-16] MEDS ORDERED: D5W 200 ML IV ONE (08:15)
[2020-07-16 08:42] VITALS: BP 138/90
--- NOTE | 2020-07-31 11:35 | ROOR ---
Patient Name: Lucy Yusuf Procedure Date: 07/16/2020 7:47 AM Date of : 1955 Age: 65 Room: [facility] Gender: Female Note Status: Finalized Procedure: Colonoscopy Indications: High risk colon cancer surveillance: Personal history of colonic polyps Providers: Brenden Ricardo MD Referring MD: Kelsey Au Requesting Provider: Medicines: Monitored Anesthesia Care Complications: No immediate complications. Procedure: Pre-Anesthesia Assessment: - Prior to the procedure, a History and Physical was performed, and patient medications and allergies were reviewed. The patient is competent. The risks and benefits of the procedure and the sedation options and risks were discussed with the patient. All questions were answered and informed consent was obtained. Patient identification and proposed procedure were verified by the physician, the nurse and the anesthesiologist in the procedure room. Mental Status Examination: alert and oriented. Airway Examination: normal oropharyngeal airway and neck mobility. Respiratory Examination: clear to auscultation. CV Examination: normal. Prophylactic Antibiotics: The patient does not require prophylactic antibiotics. Prior Anticoagulants: The patient has taken no previous anticoagulant or antiplatelet agents. ASA Grade Assessment: II - A patient with mild systemic disease. After reviewing the risks and benefits, the patient was deemed in satisfactory condition to undergo the procedure. The anesthesia plan was to use monitored anesthesia care (MAC). Immediately prior to administration of medications, the patient was re-assessed for adequacy to receive sedatives. The heart rate, respiratory rate, oxygen saturations, blood pressure, adequacy of pulmonary ventilation, and response to care were monitored throughout the procedure. The physical status of the patient was re-assessed after the procedure. The Colonoscope was introduced through the anus with the intention of advancing to the cecum. The scope was advanced to the sigmoid colon before the procedure was aborted. Medications were given. The colonoscopy was performed without difficulty. The patient tolerated the procedure well. The quality of the bowel preparation was poor and unsatisfactory. The rectum was photographed. Scope insertion time was 2 minutes. Scope withdrawal time was 3 minutes. The total duration of the procedure was 8 minutes. Findings: The perianal and digital rectal examinations were normal. Three sessile polyps were found in the rectum. The polyps were 4 to 5 mm in size. These polyps were removed with a jumbo cold forceps. Resection and retrieval were complete. Verification of patient identification for the specimen was done by the physician and nurse using the patient's name, date and medical record number. Estimated blood loss was minimal. Extensive amounts of semi-solid stool was found from rectum to sigmoid colon, precluding visualization. Lavage of the area was performed using a large amount of sterile water, resulting in incomplete clearance with continued poor visualization. Impression: - Preparation of the colon was poor. - Preparation of the colon was unsatisfactory. - Three 4 to 5 mm polyps in the rectum, removed with a jumbo cold forceps. Resected and retrieved. - Stool from rectum to sigmoid colon. Recommendation: - Patient has a contact number available for emergencies. The signs and symptoms of potential delayed complications were discussed with the patient. Return to normal activities tomorrow. Written discharge instructions were provided to the patient. - High fiber diet. - Continue present medications. - Await pathology results. - Repeat colonoscopy is not recommended at this time as patient is unable to do bowel preparation after multiple attempts. - Perform an air contrast barium enema at appointment to be scheduled. - Return to GI clinic in [facility] (address [address], [facility] [address], [place] [address]) in 4 -- 6 weeks. Please call GI clinic @ [phone] for apppointment date and time. - Return to primary care physician. Brenden Ricardo MD Brenden Ricardo MD 07/16/2020 8:09:30 AM Number of Addenda: 0 Note Initiated On: 07/16/2020 7:47 AM Estimated Blood Loss: Estimated blood loss was minimal.
== END 2020-07-16 08:41 | disposition home or self-care (01) ==
LOC: M OPP 06:57
PROVIDERS: ATTEND Internal Medicine Gastroenterology
DX: Z86.010 Personal history of colon polyps (principal); K63.5 Polyp of colon; E11.9 Type 2 diabetes mellitus without complications; J44.9 Chronic obstructive pulmonary disease, unspecified

== ENCOUNTER → 2020-07-24 | Outpatient (REF) | payer MEDICARE, MEDICAID ==
[~2020-07-24] MED LIST changes: +GABA-843 PO; +NITR1CAP11 PO; +OMEP-218 PO
[2020-07-24 19:33] LABS: APPEARANCE, URINE CLOUDY (CLEAR); BACTERIA, URINE AUTO 2+ (NEGATIVE); BILIRUBIN, URINE AUTO NEGATIVE (NEGATIVE); BLOOD, URINE BLOOD 1+ (NEGATIVE); COLOR, URINE YELLOW (YELLOW); GLUCOSE, URINE (UA) AUTO 3+ mg/dL (NEGATIVE); KETONE, URINE AUTO NEGATIVE (NEGATIVE); LEUKOCYTE ESTERASE, URINE AUTO 3+ (NEGATIVE); NITRITE, URINE AUTO NEGATIVE (NEGATIVE); PROTEIN, URINE AUTO 2+ mg/dL (NEGATIVE); RBC, URINE AUTO 17 /HPF (0-3); SPECIFIC GRAVITY URINE AUTO 1.015 (1.002-1.035); SQUAMOUS EPITHELIAL CELL UR AU 0 /HPF (0-6); UROBILINOGEN, URINE AUTO 0.2 mg/dL (0.0-2.0); WBC, URINE AUTO TNTC /HPF (0-3)
== END ==
LOC: M LAB REF 11:00
PROVIDERS: ATTEND Urology
DX: N13.5 Crossing vessel and stricture of ureter without hydronephrosis (principal); N39.0 Urinary tract infection, site not specified

== ENCOUNTER → 2020-07-26 | Outpatient (CLI) | payer MEDICARE, MEDICAID ==
[2020-07-26 19:21] LABS: HEMATOCRIT 46.5 % (36.0-47.0); HEMOGLOBIN 14.6 g/dl (12.0-15.5); MEAN CORPUSCULAR HEMOGLOBIN 31.1 pg (27.0-33.0); MEAN CORPUSCULAR HGB CONC 31.4 g/dl (32.0-36.5); MEAN CORPUSCULAR VOLUME 98.9 fl (80.0-96.0); PLATELET COUNT, AUTOMATED 359 10^3/uL (150-450); WHITE BLOOD COUNT 4.5 10^3/uL (4.0-10.0)
[2020-07-26 19:28] LABS: INR 0.97; PROTHROMBIN TIME 13.1 SECONDS (11.8-14.0)
[2020-07-26 20:00] LABS: BLOOD UREA NITROGEN 26 MG/DL (7-18); CALCIUM LEVEL 9.6 MG/DL (8.8-10.2); CARBON DIOXIDE LEVEL 33 MEQ/L (21-32); CHLORIDE LEVEL 103 MEQ/L (98-107); CREATININE FOR GFR 0.68 MG/DL (0.55-1.30); GLOMERULAR FILTRATION RATE > 60.0 (>45); GLUCOSE, FASTING 56 MG/DL (70-100); POTASSIUM SERUM 4.3 MEQ/L (3.5-5.1); SODIUM LEVEL 141 MEQ/L (136-145)
== END ==
LOC: M WUC 12:19
PROVIDERS: ATTEND Nurse Practitioner Family
DX: Z01.818 Encounter for other preprocedural examination (principal); N13.30 Unspecified hydronephrosis; Z11.59 Encounter for screening for other viral diseases; Z79.01 Long term (current) use of anticoagulants
CPT/HCPCS: 36415; 80048; 85027; 85610; C9803; U0003

== ENCOUNTER → 2020-07-26 | Outpatient (CLI) | payer MEDICARE, MEDICAID | LOC: M LABSMTC 10:24 | PROVIDERS: ATTEND Anesthesiology | DX: Z11.59 Encounter for screening for other viral diseases (principal) ==

== ENCOUNTER 2020-07-31 07:43 | Day surgery (SDC) | payer MEDICARE, MEDICAID ==
[~2020-07-31] VITALS: Ht 154.9 cm; Wt 55.3 kg
[~2020-07-31 07:43] MED LIST changes: -GABA-843 PO; +LR 1,000 ML IV ONE; -NITR1CAP11 PO; -OMEP-218 PO; +ceFAZolin SOD 2 GM in IV 1 EA IV ONE
[2020-07-31] MEDS ORDERED: LIDOCAINE 2% 100MG/5ML SDV (FOR ANES.) As Ordered ONE ×2 (08:03→10:03)
[2020-07-31] MEDS ORDERED: propofoL 200 MG/20 ML VIAL As Ordered ONE ×2 (08:03→08:13)
[2020-07-31] MEDS ORDERED: fentaNYL 100 MCG/2 ML INJECTION (J3010) As Ordered ONE (08:03)
[2020-07-31] MEDS ORDERED: ONDANSETRON 4MG/2ML VIAL As Ordered ONE (08:04)
[2020-07-31] MEDS ORDERED: dexameTHASONE 4 MG/ML 1ML VIAL (J1100 PER 1MG) As Ordered ONE (08:04)
[2020-07-31] MEDS ORDERED: MIDAZOLAM INJ 2MG/2ML VIAL (J2250 PER 1MG) As Ordered ONE (08:05)
[2020-07-31] MEDS ORDERED: GABA-843 PO (08:31)
[2020-07-31] MEDS ORDERED: OMEP-218 PO (08:31)
[2020-07-31] MEDS ORDERED: NITR1CAP11 PO (08:31)
[2020-07-31] MEDS ORDERED: LINZ145C PO (08:31)
[2020-07-31] MEDS ORDERED: LIDOCAINE 2% 5ML JELLY UROJET As Ordered ONE (09:08)
[2020-07-31] MEDS ORDERED: CONRAY-60 60% 50ML VIAL (Q9961) As Ordered ONE (09:08)
--- NOTE | 2020-07-31 10:31 | ROOPDOC ---
[facility] Report Of Operation Report of Operation DATE OF PROCEDURE: 07/31/20 PREPROCEDURE DIAGNOSIS: Right ureteral stricture. POSTPROCEDURE DIAGNOSIS: Right ureteral stricture. PROCEDURE: Cystoscopy, right ureteral stent exchange, right retrograde pyelogram with intraoperative interpretation of images. SURGEON: Dr. Forest Gan MEDICAL OFFICE REP: None. ANESTHESIA: MAC. OPERATIVE INDICATIONS: This is a 65-year-old female with a right ureteral stricture that has been managed with chronic ureteral stenting. She was brought to the operating room today for routine stent exchange. DESCRIPTION OF PROCEDURE: The patient was brought to the operating room where MAC anesthesia was administered. Prophylactic antibiotics were infused. She was placed in dorsal lithotomy position and then prepped and draped in the usual sterile fashion. A rigid cystoscope inserted into the urethral meatus and advanced into the bladder. Once inside the bladder the previously placed right ureteral stent was seen. Of note, the distal end of the stent did not have any calcifications on it, which is an improvement compared to what has been seen previously when exchanging her stent. At this point, the distal end of the stent was grasped and the stent was withdrawn until the end was protruding from the urethral meatus. A guidewire was then advanced up the stent and into the right renal pelvis. A 5 Belgian open ended ureteral catheter was then advanced up the wire and into the right collecting system. The wire was removed and a retrograde pyelogram was performed. It was notable for moderate right hydronephrosis with no extravasation. The guidewire was then advanced back up the right collecting system and the open ended ureteral catheter was removed. The guidewire was then utilized to advance a 7 Belgian x 24 cm black silicone stent into the right collecting system. The wire was removed and there were adequate curls of the stent in the right renal pelvis and in the bladder. The bladder was emptied of all fluid and this marked the conclusion of the procedure. The patient was then taken out of the dorsal lithotomy position, awakened from anesthesia and transported to the recovery room in stable condition. Estimated blood loss: 5 mL. Complications: None. Specimen: None. Plan: Will arrange to change the patient's stent in 6 months. FOREST GAN MD Jul 31, 2020 10:31
[2020-07-31 12:09] VITALS: BP 136/91
--- NOTE | 2020-08-20 12:00 | REP ---
RETROGRADE PYELOGRAM CLINICAL: Right ureteral stent exchange. TECHNIQUE: Intraoperative fluoroscopic imaging using portable C-arm technique. FINDINGS: Multiple images demonstrate irregular marked hydronephrosis of the right kidney with satisfactory right ureteral stent placement. Total fluoroscopic time 24 seconds. IMPRESSION: Satisfactory right ureteral stent placement. MTDD
== END 2020-07-31 12:23 | disposition home or self-care (01) ==
LOC: M SDC 07:43
PROVIDERS: ATTEND Urology
DX: N35.92 Unspecified urethral stricture, female (principal)
CPT/HCPCS: 52332; 74420; C1769; C2617; J0690; J2250; J2405; J3010; Q9961

== ENCOUNTER → 2020-08-22 | Outpatient (CLI) | payer MEDICARE, MEDICAID ==
[~2020-08-22] MED LIST changes: +GABA-843 PO; +LIQUID POLIBAR PLUS 105% w/v 1900ML BTL As Ordered ONE; -LR 1,000 ML IV ONE; +NITR1CAP11 PO; +OMEP-218 PO; -ceFAZolin SOD 2 GM in IV 1 EA IV ONE
--- NOTE | 2020-08-22 13:12 | REP ---
KUB: SINGLE VIEW HISTORY: The patient is referred for a barium enema procedure. History of chronic polyps. FINDINGS: Preliminary heat treat worker radiograph demonstrates a right ureteral double pigtail stent placement. There is formed stool in the transverse colon and in the sigmoid colon and descending colon indicating inadequate bowel prep. The anticipated barium enema will be rescheduled. MTDD
--- NOTE | 2020-08-28 13:45 | REP ---
BARIUM ENEMA The procedure was performed by IZZY Mcgarry, under the direct supervision of Dr. Peña. The images were reviewed with Dr. Peña prior to dictation. The travel pt film shows a right ureteral double pigtail stent placement as well as air filled colon. Liquid barium and air were instilled into the colon and retrograde flow of the barium air mixture. The colon is markedly redundant. This combined with the lack of barium and air retention greatly limited this exam. No annular constricting lesions or polyps were identified. IMPRESSION: 1. Markedly redundant colon limiting exam. 2. No constricting lesions or polyps were identified. MTDD
== END ==
LOC: M RAD 08-15 07:20
PROVIDERS: ATTEND Internal Medicine Gastroenterology
DX: Z86.010 Personal history of colon polyps (principal); Z96.0 Presence of urogenital implants; Z91.19 Patient's noncompliance with other medical treatment and regimen

== ENCOUNTER → 2020-10-03 | Outpatient (CLI) | payer MEDICARE, MEDICAID ==
[~2020-10-03] MED LIST changes: -LIQUID POLIBAR PLUS 105% w/v 1900ML BTL As Ordered ONE
[2020-10-03 20:13] LABS: BLOOD UREA NITROGEN 28 MG/DL (7-18); CALCIUM LEVEL 9.8 MG/DL (8.8-10.2); CARBON DIOXIDE LEVEL 32 MEQ/L (21-32); CHLORIDE LEVEL 106 MEQ/L (98-107); CREATININE FOR GFR 0.75 MG/DL (0.55-1.30); GLOMERULAR FILTRATION RATE > 60.0 (>45); GLUCOSE, FASTING 82 MG/DL (70-100); POTASSIUM SERUM 4.1 MEQ/L (3.5-5.1); SODIUM LEVEL 145 MEQ/L (136-145)
[2020-10-03 20:49] LABS: CREATININE, URINE 78.1 MG/DL; MAU/CREAT RATIO 2727.2 MCG/MG (0.0-30.0)
== END ==
LOC: M WUC 17:25
PROVIDERS: ATTEND Internal Medicine Endocrinology, Diabetes & Metabolism
DX: E11.65 Type 2 diabetes mellitus with hyperglycemia (principal)

== ENCOUNTER → 2021-01-18 | Outpatient (CLI) | payer MEDICARE, MEDICAID ==
[~2021-01-18] MED LIST changes: +CEFA500C2 PO; -CEFAD50CA PO; +GABA-282 PO; -GABA-843 PO; +QUET50TA3 PO; -QUET5TAB PO
--- NOTE | 2021-01-18 09:56 | REP ---
INDICATION: BODY MASS INDEX PEDIATRIC, > OR EQUAL TO 95% FOR AGE COMPARISON: 06/18/2020. TECHNIQUE: PA/Lateral FINDINGS: Lungs: Clear, no infiltrate. Heart: Normal in size. Mediastinum: There is again evidence of chronic large amount of the right thyroid with deviation the trachea to the left, unchanged. Pleural angles: Unremarkable.. Bones and soft tissues: There are mild degenerative changes of the spine without compression deformity. IMPRESSION: No acute pulmonary disease. No change since prior study. <Electronically signed by Donny Peña > 01/18/21 0980
[2021-01-18 14:23] LABS: ALBUMIN 3.1 GM/DL (3.2-5.2); ALT/SGPT 23 U/L (12-78); BILIRUBIN,TOTAL 0.1 MG/DL (0.2-1.0); BLOOD UREA NITROGEN 22 MG/DL (7-18); CALCIUM LEVEL 9.5 MG/DL (8.8-10.2); CARBON DIOXIDE LEVEL 35 MEQ/L (21-32); CHLORIDE LEVEL 104 MEQ/L (98-107); CREATININE FOR GFR 0.51 MG/DL (0.55-1.30); FREE T3 2.2 PG/ML (2.2-4.0); FREE T4 1.14 NG/DL (0.76-1.46); GLOMERULAR FILTRATION RATE > 60.0 (>45); GLUCOSE, FASTING 123 MG/DL (70-100); POTASSIUM SERUM 4.2 MEQ/L (3.5-5.1); SODIUM LEVEL 143 MEQ/L (136-145); TOTAL PROTEIN 6.4 GM/DL (6.4-8.2)
[2021-01-18 14:40] LABS: HEMATOCRIT 45.2 % (36.0-47.0); HEMOGLOBIN 14.4 g/dl (12.0-15.5); MEAN CORPUSCULAR HEMOGLOBIN 30.3 pg (27.0-33.0); MEAN CORPUSCULAR HGB CONC 31.9 g/dl (32.0-36.5); PLATELET COUNT, AUTOMATED 286 10^3/uL (150-450); RED BLOOD COUNT 4.76 10^6/uL (4.00-5.40); WHITE BLOOD COUNT 3.9 10^3/uL (4.0-10.0)
--- NOTE | 2021-01-18 20:34 | ECGEPIP ---
[facility] Test Date: 2021-01-18 Pat Name: JOHANNA WILSON Department: Room: - Gender: Female Bias Binding Folder: baldo : 1955 Requested By: Mich FERRERA Order Number: [id number] Reading MD: Billy Hartley Measurements Intervals [place] Rate: 70 P: 63 LA: 164 QRS: 3 QRSD: 108 T: 38 QT: 402 QTc: 434 Interpretive Statements Normal sinus rhythm Nonspecific T wave abnormality. No significant change compared with 06/18/2020. Electronically Signed on 01-18-2021 20:33:38 EST by Billy Hartley
[2021-01-22 18:06] LABS: CK 1 (BB) 0 % (0); CK 2 (MB) 0 % (0-3); CK 3 (MM) 100 % (97-100); CK MACRO I PERCENT 0 % (Not Observed); CK MACRO II PERCENT 0 % (Not Observed); CK TOTAL 64 U/L (32-182)
== END ==
LOC: M LAB 08:45
PROVIDERS: ATTEND Registered Nurse
DX: Z01.818 Encounter for other preprocedural examination (principal); N13.5 Crossing vessel and stricture of ureter without hydronephrosis; E78.2 Mixed hyperlipidemia

== ENCOUNTER → 2021-01-18 | Outpatient (REF) | payer MEDICARE, MEDICAID ==
[2021-01-18 14:06] LABS: APPEARANCE, URINE TURBID (CLEAR); BACTERIA, URINE AUTO 2+ (NEGATIVE); BILIRUBIN, URINE AUTO NEGATIVE (NEGATIVE); BLOOD, URINE BLOOD 1+ (NEGATIVE); COLOR, URINE YELLOW (YELLOW); GLUCOSE, URINE (UA) AUTO NEGATIVE (NEGATIVE); KETONE, URINE AUTO NEGATIVE (NEGATIVE); LEUKOCYTE ESTERASE, URINE AUTO 3+ (NEGATIVE); NITRITE, URINE AUTO POSITIVE (NEGATIVE); PROTEIN, URINE AUTO 2+ mg/dL (NEGATIVE); RBC, URINE AUTO 15 /HPF (0-3); SPECIFIC GRAVITY URINE AUTO 1.012 (1.002-1.035); SQUAMOUS EPITHELIAL CELL UR AU 1 /HPF (0-6); UROBILINOGEN, URINE AUTO 0.2 mg/dL (0.0-2.0); WBC, URINE AUTO TNTC /HPF (0-3)
[2021-01-18 14:12] LABS: INR 1.92; PARTIAL THROMBOPLASTIN TIME 33.8 SECONDS (24.2-38.5); PROTHROMBIN TIME 12.6 SECONDS (12.5-14.3)
[2021-01-18 14:12] LABS: BLOOD UREA NITROGEN 23 MG/DL (7-18); CALCIUM LEVEL 9.6 MG/DL (8.8-10.2); CARBON DIOXIDE LEVEL 35 MEQ/L (21-32); CHLORIDE LEVEL 106 MEQ/L (98-107); CREATININE FOR GFR 0.56 MG/DL (0.55-1.30); GLOMERULAR FILTRATION RATE > 60.0 (>45); GLUCOSE, FASTING 123 MG/DL (70-100); POTASSIUM SERUM 4.2 MEQ/L (3.5-5.1); SODIUM LEVEL 144 MEQ/L (136-145)
[2021-01-18 14:39] LABS: HEMATOCRIT 45.3 % (36.0-47.0); HEMOGLOBIN 14.2 g/dl (12.0-15.5); MEAN CORPUSCULAR HEMOGLOBIN 29.7 pg (27.0-33.0); MEAN CORPUSCULAR HGB CONC 31.3 g/dl (32.0-36.5); MEAN CORPUSCULAR VOLUME 94.8 fl (80.0-96.0); PLATELET COUNT, AUTOMATED 284 10^3/uL (150-450); RED BLOOD COUNT 4.78 10^6/uL (4.00-5.40); WHITE BLOOD COUNT 3.8 10^3/uL (4.0-10.0)
== END ==
LOC: M LAB 10:14
PROVIDERS: ATTEND Nurse Practitioner Family
DX: Z01.818 Encounter for other preprocedural examination (principal); N13.5 Crossing vessel and stricture of ureter without hydronephrosis

== ENCOUNTER → 2021-01-24 | Outpatient (CLI) | payer MEDICARE, MEDICAID ==
[~2021-01-24] MED LIST changes: +ISOVUE-370 76% 100ML VIAL As Ordered ONE; +VITATAB26 PO; +XALA0.007 OU; +fiberlax PO
--- NOTE | 2021-01-24 09:19 | REPVR ---
PROCEDURE INFORMATION: Exam: CT Angiography Head With Contrast Exam date and time: 01/24/2021 8:47 AM Age: 65 years old Clinical indication: Pain; Other: Poss CVA; Additional info: Possible CVA TECHNIQUE: Imaging protocol: Computed tomography angiography of the head with intravenous contrast. 3D rendering (Not supervised by radiologist): MIP and/or 3D reconstructed images were created by the technologist. Radiation optimization: All CT scans at this facility use at least one of these dose optimization techniques: automated exposure control; mA and/or kV adjustment per patient size (includes targeted exams where dose is matched to clinical indication); or iterative reconstruction. Contrast material: ISOVUE 370; Contrast volume: 75 ml; Contrast route: INTRAVENOUS (IV); COMPARISON: CT Head without contrast 03/29/2018 1:33 PM FINDINGS: ANTERIOR CIRCULATION: Right internal carotid artery: Unremarkable. Intracranial segment is patent with no significant stenosis. No aneurysm. Right middle cerebral artery: Unremarkable. No occlusion or significant stenosis. No aneurysm. Right anterior cerebral artery: Unremarkable. No occlusion or significant stenosis. No aneurysm. Left internal carotid artery: Unremarkable. Intracranial segment is patent with no significant stenosis. No aneurysm. Left middle cerebral artery: Unremarkable. No occlusion or significant stenosis. No aneurysm. Left anterior cerebral artery: Unremarkable. No occlusion or significant stenosis. No aneurysm. POSTERIOR CIRCULATION: Right vertebral artery: Unremarkable. No occlusion or significant stenosis. No aneurysm. Left vertebral artery: Unremarkable. No occlusion or significant stenosis. No aneurysm. Basilar artery: Unremarkable. No occlusion or significant stenosis. No aneurysm. Right posterior cerebral artery: Unremarkable. No occlusion or significant stenosis. No aneurysm. Left posterior cerebral artery: Unremarkable. No occlusion or significant stenosis. No aneurysm. Brain: No definite mass, mass effect, or midline shift. Sella: There is a markedly expanded sella with possible underlying macro adenoma. This would be better assessed with pituitary protocol MRI. Cerebral ventricles: No ventriculomegaly. Bones/joints: There are right-sided craniotomy changes. Soft tissues: Unremarkable. IMPRESSION: Intracranial arterial circulation within normal limits. Electronically signed by: Bailey Coles On 01/24/2021 09:19:57 AM
== END ==
LOC: M RAD 08:10
PROVIDERS: ATTEND Registered Nurse
DX: Z86.73 Personal history of transient ischemic attack (TIA), and cerebral infarction without residual deficits (principal)
CPT/HCPCS: 70496; Q9967

== ENCOUNTER → 2021-01-25 | Outpatient (CLI) | payer MEDICARE, MEDICAID ==
[~2021-01-25] MED LIST changes: -ISOVUE-370 76% 100ML VIAL As Ordered ONE
== END ==
LOC: M LABSMTC 09:41
PROVIDERS: ATTEND Anesthesiology
DX: Z01.812 Encounter for preprocedural laboratory examination (principal); Z20.822 Contact with and (suspected) exposure to COVID-19

== ENCOUNTER → 2021-02-03 | Outpatient (REF) | payer MEDICARE ==
[2021-02-03 20:04] LABS: APPEARANCE, URINE CLOUDY (CLEAR); BACTERIA, URINE AUTO 1+ (NEGATIVE); BILIRUBIN, URINE AUTO NEGATIVE (NEGATIVE); BLOOD, URINE BLOOD 2+ (NEGATIVE); COLOR, URINE YELLOW (YELLOW); GLUCOSE, URINE (UA) AUTO NEGATIVE (NEGATIVE); KETONE, URINE AUTO NEGATIVE (NEGATIVE); LEUKOCYTE ESTERASE, URINE AUTO 3+ (NEGATIVE); MUCUS, URINE SMALL (NEGATIVE); NITRITE, URINE AUTO NEGATIVE (NEGATIVE); PROTEIN, URINE AUTO 3+ mg/dL (NEGATIVE); RBC, URINE AUTO 33 /HPF (0-3); SPECIFIC GRAVITY URINE AUTO 1.011 (1.002-1.035); SQUAMOUS EPITHELIAL CELL UR AU 0 /HPF (0-6); UROBILINOGEN, URINE AUTO 0.2 mg/dL (0.0-2.0); WBC, URINE AUTO TNTC /HPF (0-3)
== END ==
LOC: M LAB REF 19:20
PROVIDERS: ATTEND Registered Nurse
DX: N39.41 Urge incontinence (principal)

== ENCOUNTER → 2021-02-11 | Outpatient (CLI) | payer MEDICARE, MEDICAID ==
[2021-02-11 11:48] LABS: FOLATE 6.7 NG/ML; TOTAL PROTEIN 6.2 GM/DL (6.4-8.2); VITAMIN B12 LEVEL 917 PG/ML
[2021-02-11 12:33] LABS: HEMOGLOBIN A1c 5.9 %
[2021-02-12 11:05] LABS: ALPHA-1-GLOBULIN % 4.9 % (2.9-4.9); ALPHA-2-GLOBULINS % 11.7 % (7.1-11.8)
[2021-02-12 11:06] LABS: ALBUMIN 3.72 GM/DL (3.29-5.55); ALPHA-2-GLOBULINS 0.73 GM/DL (0.42-0.99); BETA-1-GLOBULINS 0.42 GM/DL (0.28-0.60); BETA-1-GLOBULINS % 6.8 % (4.7-7.2); BETA-2-GLOBULINS 0.37 GM/DL (0.19-0.55); GAMMA GLOBULIN % 10.6 % (11.1-18.8); GAMMA GLOBULINS 0.66 GM/DL (0.65-1.58)
== END ==
LOC: M WUC 08:30
PROVIDERS: ATTEND Psychiatry & Neurology Neurology
DX: R20.2 Paresthesia of skin (principal); E11.9 Type 2 diabetes mellitus without complications

== ENCOUNTER → 2021-02-14 | Outpatient (CLI) | payer MEDICARE, MEDICAID | LOC: M LABSMTC 13:46 | PROVIDERS: ATTEND Anesthesiology | DX: Z01.812 Encounter for preprocedural laboratory examination (principal); Z20.822 Contact with and (suspected) exposure to COVID-19 ==

== ENCOUNTER 2021-02-17 09:47 | Day surgery (SDC) | payer MEDICARE, MEDICAID ==
[~2021-02-17] VITALS: Ht 156.2 cm; Wt 46.2 kg
[~2021-02-17 09:47] MED LIST changes: +LIDOCAINE 1% MDV 20ML VIAL SQ PRN; +LR 1,000 ML IV ONE; +ceFAZolin SOD 2 GM in IV 1 EA IV ONE
[2021-02-17] MEDS ORDERED: CONRAY-60 60% 50ML VIAL (Q9961) As Ordered ONE (13:45)
[2021-02-17] MEDS ORDERED: LIDOCAINE 2% 5ML JELLY UROJET As Ordered ONE (14:01)
[2021-02-17] MEDS ORDERED: fentaNYL 100 MCG/2 ML INJECTION (J3010) As Ordered ONE (14:31)
[2021-02-17] MEDS ORDERED: MIDAZOLAM INJ 2MG/2ML VIAL (J2250 PER 1MG) As Ordered ONE (14:31)
[2021-02-17] MEDS ORDERED: propofoL 200 MG/20 ML VIAL As Ordered ONE (14:31)
[2021-02-17] MEDS ORDERED: LR 1,000 ML IV SCH (15:15)
[2021-02-17] MEDS ORDERED: fentaNYL 100 MCG/2 ML INJECTION (J3010) IV PRN (15:15)
[2021-02-17] MEDS ORDERED: ONDANSETRON 4MG/2ML VIAL IV PRN (15:15)
[2021-02-17] MEDS ORDERED: oxyCODONE 5MG TAB PO PRN (15:15)
--- NOTE | 2021-02-17 15:19 | REP ---
INDICATION: RIGHT URETERAL STRICTURE. COMPARISON: Comparison study 07/31/2020.. TECHNIQUE: Three views. 24 seconds of fluoroscopy time is reported. FINDINGS: A sequence of 3 last image hold fluoroscopically obtained spot retic are absent the right abdomen document right ureteral cannulation, contrast injection, hydronephrosis, and double-pigtail ureteral stent placement. IMPRESSION: Procedural imaging. <Electronically signed by Baljinder Chaparro > 02/17/21 [id number]
[2021-02-17] MEDS ORDERED: ACETAMINOPHEN TAB 650MG DOSE (2X325MG) PO PRN (15:20)
[2021-02-17 15:40] VITALS: BP 168/90
--- NOTE | 2021-02-17 15:47 | ROOPDOC ---
[facility] Report Of Operation Report of Operation DATE OF PROCEDURE: 02/17/21 PREPROCEDURE DIAGNOSIS: Right ureteral stricture. POSTPROCEDURE DIAGNOSIS: Right ureteral stricture. PROCEDURE: Cystoscopy, right ureteral stent exchange, right retrograde pyelogram with intraoperative interpretation of images. SURGEON: Dr. Forest Gan RN HEMATOLOGY: None. ANESTHESIA: General. OPERATIVE INDICATIONS: This is a 65-year-old female with a right ureteral stricture that has been managed with chronic ureteral stenting. She was brought to the operating room today for routine stent exchange. DESCRIPTION OF PROCEDURE: The patient was brought to the operating room where MAC anesthesia was administered. Prophylactic antibiotics were infused. She was placed in dorsal lithotomy position and then prepped and draped in the usual sterile fashion. A rigid cystoscope inserted into the urethral meatus and advanced into the bladder. Once inside the bladder the previously placed right ureteral stent was seen. At this point, the distal end of the stent was grasped and the stent was withdrawn until the end was protruding from the urethral meatus. A guidewire was then advanced up the stent and into the right renal pelvis. A 5 Scottish open ended ureteral catheter was then advanced up the wire and into the right collecting system. The wire was removed and a retrograde pyelogram was performed. It was notable for mild right hydronephrosis with no extravasation. The guidewire was then advanced back up the right collecting system and the open ended ureteral catheter was removed. The guidewire was then utilized to advance a 7 Scottish x 24 cm black silicone stent into the right collecting system. The wire was removed and there were adequate curls of the stent in the right renal pelvis and in the bladder. The bladder was emptied of all fluid and this marked the conclusion of the procedure. The patient was then taken out of the dorsal lithotomy position, awakened from anesthesia and transported to the recovery room in stable condition. Estimated blood loss: 5 mL. Complications: None. Specimen: None. Plan: Will arrange to change the patient's stent in 6 months. FOREST GAN MD Feb 17, 2021 15:47
== END 2021-02-17 16:02 | disposition home or self-care (01) ==
LOC: M SDC 09:47
PROVIDERS: ATTEND Urology
DX: N28.89 Other specified disorders of kidney and ureter (principal); Z96.0 Presence of urogenital implants; K21.9 Gastro-esophageal reflux disease without esophagitis; E11.9 Type 2 diabetes mellitus without complications; E78.5 Hyperlipidemia, unspecified; E04.1 Nontoxic single thyroid nodule; K58.8 Other irritable bowel syndrome; G47.30 Sleep apnea, unspecified; J44.9 Chronic obstructive pulmonary disease, unspecified; G43.909 Migraine, unspecified, not intractable, without status migrainosus; Z86.73 Personal history of transient ischemic attack (TIA), and cerebral infarction without residual deficits; M81.0 Age-related osteoporosis without current pathological fracture; Z79.899 Other long term (current) drug therapy; Z79.84 Long term (current) use of oral hypoglycemic drugs; F41.9 Anxiety disorder, unspecified; F32.9 Major depressive disorder, single episode, unspecified
CPT/HCPCS: 52332; 74420; C1769; C2617; J0690; J2250; J3010; Q9961; U0002

== ENCOUNTER → 2021-04-18 | Outpatient (REF) | payer MEDICARE, MEDICAID ==
[~2021-04-18] MED LIST changes: -GNP8.6TA PO; +GNP8.6TA7 PO; -LIDOCAINE 1% MDV 20ML VIAL SQ PRN; -LR 1,000 ML IV ONE; -ceFAZolin SOD 2 GM in IV 1 EA IV ONE
== END ==
LOC: M LAB REF 16:57
PROVIDERS: ATTEND Internal Medicine Nephrology
DX: T83.592A Infection and inflammatory reaction due to indwelling ureteral stent, initial encounter (principal)

== ENCOUNTER → 2021-05-06 | Outpatient (REF) | payer MEDICARE, MEDICAID ==
[2021-05-06 13:07] LABS: APPEARANCE, URINE CLOUDY (CLEAR); BACTERIA, URINE AUTO 3+ (NEGATIVE); BILIRUBIN, URINE AUTO NEGATIVE (NEGATIVE); BLOOD, URINE BLOOD 1+ (NEGATIVE); COLOR, URINE YELLOW (YELLOW); GLUCOSE, URINE (UA) AUTO NEGATIVE (NEGATIVE); KETONE, URINE AUTO NEGATIVE (NEGATIVE); LEUKOCYTE ESTERASE, URINE AUTO 3+ (NEGATIVE); NITRITE, URINE AUTO POSITIVE (NEGATIVE); PROTEIN, URINE AUTO 2+ mg/dL (NEGATIVE); RBC, URINE AUTO 0 /HPF (0-3); SQUAMOUS EPITHELIAL CELL UR AU 1 /HPF (0-6); UROBILINOGEN, URINE AUTO 0.2 mg/dL (0.0-2.0); WBC, URINE AUTO 86 /HPF (0-3)
== END ==
LOC: M LAB REF 09:26
PROVIDERS: ATTEND Internal Medicine Nephrology
DX: N18.2 Chronic kidney disease, stage 2 (mild) (principal); T83.592A Infection and inflammatory reaction due to indwelling ureteral stent, initial encounter; E11.22 Type 2 diabetes mellitus with diabetic chronic kidney disease

== ENCOUNTER → 2021-06-17 | Outpatient (CLI) | payer MEDICARE, MEDICAID ==
--- NOTE | 2021-06-18 09:06 | REP ---
INDICATION: ANGELICA SCR MAMMO/Z12.31. COMPARISON: Multiple TECHNIQUE: Digital screening mammography was attempted in the CC and MLO projections bilaterally using 2D modality only. The prior exams were reviewed. The patient's latest priors 04/10/2020 and DBT imaging was obtained during that exam. FINDINGS: There is gross underpenetration of the radiographic beam in all views bilaterally to such a degree That an abnormality could be obscured. The breast parenchymal density is equal to that of skin density. The Volpara volumetric breast density pattern could not be determined due to the gross underpenetration of the radiographic beam. IMPRESSION: BIRADS/ACR category 0 mammogram nondiagnostic as described above. Repeat examination is required. This patient's Tyrer-Cuzick lifetime breast cancer risk assessment score is 8%. This mammogram was interpreted with the aid of an FDA-approved computer-aided detection system. The patient states she had a clinical breast exam in over a year. The patient letter being requested is M0 RECOMMENDATION: As above). <Electronically signed by Óscar Emerson > 06/18/21 0902
== END ==
LOC: M WHC 15:29
PROVIDERS: ATTEND Registered Nurse
DX: Z12.31 Encounter for screening mammogram for malignant neoplasm of breast (principal); R92.8 Other abnormal and inconclusive findings on diagnostic imaging of breast

== ENCOUNTER → 2021-07-14 | Outpatient (CLI) | payer MEDICARE, MEDICAID ==
[~2021-07-14] MED LIST changes: -GNP8.6TA7 PO; -QUET50TA3 PO; +QUET50TA4 PO; +SENN-111 PO
--- NOTE | 2021-07-14 17:11 | REP ---
INDICATION: REPEAT MAMMOGRAM. COMPARISON: 06/17/2021 as well as other prior exams. TECHNIQUE: Additional views bilateral breasts. FINDINGS: The compression thickness of the breasts is only 6 mm. There is homogeneously dense parenchymal tissue. There is no suspicious mass or clustered microcalcifications. IMPRESSION: BIRADS/ACR category 1, negative bilateral mammogram. This mammogram was interpreted with the aid of an FDA-approved computer-aided detection system. The patient letter being requested is M1. RECOMMENDATION: Repeat screening mammography recommended 1 year (for women over 40). <Electronically signed by Donny Peña > 07/14/21 2646
== END ==
LOC: M WHC 15:06
PROVIDERS: ATTEND Registered Nurse
DX: R92.2 Inconclusive mammogram (principal)

== ENCOUNTER → 2021-07-21 | Outpatient (CLI) | payer MEDICARE, MEDICAID ==
[2021-07-21 11:36] LABS: BASO % 0.3 % (0.0-1.0); EOS % 0.8 % (0.0-3.0); HEMATOCRIT 42.3 % (36.0-47.0); HEMOGLOBIN 13.7 g/dl (12.0-15.5); LYMPH # 0.7 10^3/uL (1.5-5.0); MEAN CORPUSCULAR HEMOGLOBIN 29.7 pg (27.0-33.0); MEAN CORPUSCULAR HGB CONC 32.4 g/dl (32.0-36.5); MEAN CORPUSCULAR VOLUME 91.8 fl (80.0-96.0); MONO # 0.4 10^3/uL (0.0-0.8); MONO % 9.3 % (2.0-8.0); NEUTROPHILS # 2.8 10^3/uL (1.5-8.5); NEUTROPHILS % 72.1 % (36.0-66.0); PLATELET COUNT, AUTOMATED 317 10^3/uL (150-450); RED BLOOD COUNT 4.61 10^6/uL (4.00-5.40); WHITE BLOOD COUNT 3.9 10^3/uL (4.0-10.0)
[2021-07-21 11:43] LABS: INR 0.98; PROTHROMBIN TIME 13.4 SECONDS (12.7-14.5)
[2021-07-21 12:54] LABS: BLOOD UREA NITROGEN 17 MG/DL (7-18); CALCIUM LEVEL 9.2 MG/DL (8.8-10.2); CARBON DIOXIDE LEVEL 31 MEQ/L (21-32); CHLORIDE LEVEL 104 MEQ/L (98-107); CREATININE FOR GFR 0.54 MG/DL (0.55-1.30); GLOMERULAR FILTRATION RATE > 60.0 (>45); GLUCOSE, FASTING 120 MG/DL (70-100); POTASSIUM SERUM 4.2 MEQ/L (3.5-5.1); SODIUM LEVEL 141 MEQ/L (136-145)
== END ==
LOC: M WUC 08:42
PROVIDERS: ATTEND Registered Nurse
DX: E11.9 Type 2 diabetes mellitus without complications (principal)
CPT/HCPCS: 36415; 80048; 85025; 85610; G0463

== ENCOUNTER → 2021-08-02 | Outpatient (CLI) | payer MEDICARE, MEDICAID | LOC: M LABSMTC 11:18 | PROVIDERS: ATTEND Neurological Surgery | DX: Z01.812 Encounter for preprocedural laboratory examination (principal); Z20.822 Contact with and (suspected) exposure to COVID-19 ==

== ENCOUNTER → 2021-08-03 | Outpatient (CLI) | payer MEDICARE, MEDICAID ==
[2021-08-03 09:06] LABS: HEMATOCRIT 42.1 % (36.0-47.0); HEMOGLOBIN 13.6 g/dl (12.0-15.5); MEAN CORPUSCULAR HEMOGLOBIN 29.9 pg (27.0-33.0); MEAN CORPUSCULAR HGB CONC 32.3 g/dl (32.0-36.5); MEAN CORPUSCULAR VOLUME 92.5 fl (80.0-96.0); PLATELET COUNT, AUTOMATED 322 10^3/uL (150-450); RED BLOOD COUNT 4.55 10^6/uL (4.00-5.40); WHITE BLOOD COUNT 3.9 10^3/uL (4.0-10.0)
[2021-08-03 09:08] LABS: APPEARANCE, URINE TURBID (CLEAR); BACTERIA, URINE AUTO 1+ (NEGATIVE); BILIRUBIN, URINE AUTO NEGATIVE (NEGATIVE); BLOOD, URINE BLOOD 1+ (NEGATIVE); COLOR, URINE YELLOW (YELLOW); GLUCOSE, URINE (UA) AUTO NEGATIVE (NEGATIVE); KETONE, URINE AUTO NEGATIVE (NEGATIVE); LEUKOCYTE ESTERASE, URINE AUTO 3+ (NEGATIVE); MUCUS, URINE SMALL (NEGATIVE); NITRITE, URINE AUTO POSITIVE (NEGATIVE); PROTEIN, URINE AUTO 3+ mg/dL (NEGATIVE); RBC, URINE AUTO 22 /HPF (0-3); SPECIFIC GRAVITY URINE AUTO 1.009 (1.002-1.035); SQUAMOUS EPITHELIAL CELL UR AU 0 /HPF (0-6); UROBILINOGEN, URINE AUTO 0.2 mg/dL (0.0-2.0); WBC, URINE AUTO TNTC /HPF (0-3)
[2021-08-03 09:17] LABS: INR 0.99; PROTHROMBIN TIME 13.5 SECONDS (12.7-14.5)
[2021-08-03 09:18] LABS: PARTIAL THROMBOPLASTIN TIME 31.5 SECONDS (25.9-37.0)
[2021-08-03 09:36] LABS: BLOOD UREA NITROGEN 18 MG/DL (7-18); CALCIUM LEVEL 9.4 MG/DL (8.8-10.2); CARBON DIOXIDE LEVEL 35 MEQ/L (21-32); CHLORIDE LEVEL 104 MEQ/L (98-107); CREATININE FOR GFR 0.62 MG/DL (0.55-1.30); GLOMERULAR FILTRATION RATE > 60.0 (>45); GLUCOSE, FASTING 132 MG/DL (70-100); POTASSIUM SERUM 4.2 MEQ/L (3.5-5.1); SODIUM LEVEL 142 MEQ/L (136-145)
--- NOTE | 2021-08-03 10:47 | REP ---
INDICATION: CROSSING VESSEL AND STRICTURE OF URETER W/O HYDRONE/LABS 1ST COMPARISON: 01/18/2021. TECHNIQUE: PA/Lateral FINDINGS: Lungs: Clear, no infiltrate. Heart: Normal in size. Mediastinum: Mediastinal silhouette unremarkable. Pleural angles: Unremarkable.. Bones and soft tissues: There are mild degenerative changes of the spine. IMPRESSION: No acute pulmonary disease. <Electronically signed by Donny Peña > 08/03/21 1046
== END ==
LOC: M LAB 08:21
PROVIDERS: ATTEND Nurse Practitioner Women's Health
DX: Z01.818 Encounter for other preprocedural examination (principal); N13.5 Crossing vessel and stricture of ureter without hydronephrosis; Z86.010 Personal history of colon polyps

== ENCOUNTER → 2021-08-03 | Outpatient (CLI) | payer MEDICARE, MEDICAID ==
[2021-08-03 09:06] LABS: BASO % 0.5 % (0.0-1.0); HEMATOCRIT 41.9 % (36.0-47.0); HEMOGLOBIN 13.6 g/dl (12.0-15.5); LYMPH # 0.8 10^3/uL (1.5-5.0); LYMPH % 19.2 % (24.0-44.0); MEAN CORPUSCULAR HGB CONC 32.5 g/dl (32.0-36.5); MEAN CORPUSCULAR VOLUME 92.5 fl (80.0-96.0); MONO # 0.4 10^3/uL (0.0-0.8); MONO % 9.4 % (2.0-8.0); NEUTROPHILS # 2.8 10^3/uL (1.5-8.5); NEUTROPHILS % 69.4 % (36.0-66.0); PLATELET COUNT, AUTOMATED 308 10^3/uL (150-450); RED BLOOD COUNT 4.53 10^6/uL (4.00-5.40); WHITE BLOOD COUNT 4.1 10^3/uL (4.0-10.0)
[2021-08-03 09:36] LABS: BLOOD UREA NITROGEN 18 MG/DL (7-18); CALCIUM LEVEL 9.3 MG/DL (8.8-10.2); CARBON DIOXIDE LEVEL 36 MEQ/L (21-32); CHLORIDE LEVEL 105 MEQ/L (98-107); CREATININE FOR GFR 0.58 MG/DL (0.55-1.30); GLOMERULAR FILTRATION RATE > 60.0 (>45); GLUCOSE, FASTING 131 MG/DL (70-100); IRON (FE) 52 UG/DL (50-170); PERCENT SATURATION 13.5 % (13.2-45.0); POTASSIUM SERUM 4.3 MEQ/L (3.5-5.1); SODIUM LEVEL 141 MEQ/L (136-145); TOTAL IRON BINDING CAPACITY 386 UG/DL (250-450)
== END ==
LOC: M LAB 08:15
PROVIDERS: ATTEND Internal Medicine Gastroenterology
DX: Z86.010 Personal history of colon polyps (principal)

== ENCOUNTER → 2021-08-15 | Outpatient (CLI) | payer MEDICARE, MEDICAID ==
[~2021-08-15] MED LIST changes: +HYDR-3911 PO; +TORS5TAB2 PO
== END ==
LOC: M LABSMTC 09:00
PROVIDERS: ATTEND Anesthesiology
DX: Z01.812 Encounter for preprocedural laboratory examination (principal); Z20.822 Contact with and (suspected) exposure to COVID-19

== ENCOUNTER 2021-08-18 06:01 | Day surgery (SDC) | payer MEDICARE, MEDICAID ==
[~2021-08-18] VITALS: Ht 154.9 cm; Wt 48.7 kg
[~2021-08-18 06:01] MED LIST changes: -HYDR-3911 PO; +LIDOCAINE 1% MDV 20ML VIAL SQ PRN
[2021-08-18] MEDS ORDERED: ceFAZolin SOD 1 GM in D5W MINI-BAG PLUS 50 ML IV ONE ×4 (06:05)
[2021-08-18] MEDS ORDERED: LR 1,000 ML IV ONE (06:05)
[2021-08-18] MEDS ORDERED: HYDR-3911 PO (06:42)
[2021-08-18] MEDS ORDERED: propofoL 200 MG/20 ML VIAL As Ordered ONE (06:52)
[2021-08-18] MEDS ORDERED: ONDANSETRON 4MG/2ML VIAL As Ordered ONE (06:52)
[2021-08-18] MEDS ORDERED: PHENYLephrine 500MCG 5ML (100MCG/ML) SYRINGE As Ordered ONE (06:52)
[2021-08-18] MEDS ORDERED: dexameTHASONE 4 MG/ML 1ML VIAL (J1100 PER 1MG) As Ordered ONE (06:52)
[2021-08-18] MEDS ORDERED: LIDOCAINE 2% 100MG/5ML SDV (FOR ANES.) As Ordered ONE (06:52)
[2021-08-18] MEDS ORDERED: ACETAMINOPHEN 1000MG 100ML IV BTL (OFIRMEV) (J0131 PER 10MG) As Ordered ONE (06:52)
[2021-08-18] MEDS ORDERED: ePHEDrine SULFATE 25 MG/5 ML(5MG/ML) SYRINGE As Ordered ONE (06:52)
[2021-08-18] MEDS ORDERED: MIDAZOLAM INJ 2MG/2ML VIAL (J2250 PER 1MG) As Ordered ONE (06:53)
[2021-08-18] MEDS ORDERED: fentaNYL 100 MCG/2 ML INJECTION (J3010) As Ordered ONE (07:27)
[2021-08-18] MEDS ORDERED: CONRAY-60 60% 50ML VIAL (Q9961) As Ordered ONE (07:57)
--- NOTE | 2021-08-18 08:18 | ROOPDOC ---
[facility] Report Of Operation Report of Operation DATE OF PROCEDURE: 08/18/21 PREPROCEDURE DIAGNOSES: [right ureteral stricture]. POSTPROCEDURE DIAGNOSES: [same]. PROCEDURE PERFORMED: [cysto, fluoro, retrograde, rig uscopy, stent change]. SURGEON: [Sudheer Gregorio, PHYSICIAN SURGEON: [none], ANESTHESIA: [mac]. ESTIMATED BLOOD LOSS: Approximately [1] mL. COMPLICATIONS: [none]. REMARKS: [66yo wf with right ureteral stricture managed with ureteral stent that is changed routinely. Presents today for the same. Informed consent obtained. Risks discussed including infection, pain, bleeding, scarring, failure of surgery, need for another surgery, injury to gu tract and others. No guarantees given.]. FINDINGS: SPECIMENS REMOVED: [old right ureteral stent and urine from right kidney for cx] PROCEDURE NOTE: [7fr 24cm black right ureteral stent]. DESCRIPTION OF PROCEDURE: [Met with pt in preop and surgery discussed. Questions answered. Informed consent obtained. Pt wished to proceed. Pt brought to OR room. Mac anesthesia started. Dorsal litho position. Well padded. Prep'd and draped in sterile fashion. Time out performed. Surgery done under iv antibiotic. Cystoscopy performed with rigid scope. Stent on right noted. Coil encrusted with soft material. With rigid grasper, encrustation broken up. Stent then pulled to ext meatus. Could not pass wire through it. Wire passed along side stent instead with cystoscope. Stent then removed in its entirety. 5fr open ended catheter passed over wire and wire then removed. Retrograde obtained with gentle injection of contrast under fluoroscopy. Fluoroscopy used intermittently. Some images saved. Ureter obstructed just a few cm up from uo. Contrast did not make it past the area in question. Tip of ureteral catheter was below the obstruction. I couldn't pass a wire beyond the area either, even with help from ureteral catheter. I then performed rigid ureteroscopy. Fortunately I was able to advance a wire into the kidney after passing the stricture with the ureteroscope. With a wire in place, a new 7fr 24cm black silicone stent was placed using the cystoscope. Proper positioning was confirmed. This ended surgery. Of note, after getting a wire past the strictu re, another retrograde was obtained after passing the ureteral catheter past the stricture. Hydronephrosis was noted. At end of surgery, bladder was emptied and cystoscope was removed. Pt tolerated all well and left room in satisfactory condition. ]. MINDI GREGORIO MD Aug 18, 2021 08:18
[2021-08-18 09:05] VITALS: BP 165/96
--- NOTE | 2021-08-18 12:25 | REP ---
INDICATION: RIGHT STENT PLACEMENT. COMPARISON: February 17, 2021. TECHNIQUE: Single-view. 1 minute 9 seconds of fluoroscopy time. FINDINGS: A single last image hold fluoroscopically obtained spot radiograph of the abdomen documents double pigtail stent placement. Contrast opacification shows hydronephrosis. IMPRESSION: Procedural imaging. <Electronically signed by Baljinder Chaparro > 08/18/21 0879
== END 2021-08-18 09:05 | disposition home or self-care (01) ==
LOC: M SDC 06:01
PROVIDERS: ATTEND Urology
DX: N13.5 Crossing vessel and stricture of ureter without hydronephrosis (principal); E11.9 Type 2 diabetes mellitus without complications; G43.909 Migraine, unspecified, not intractable, without status migrainosus; Z88.8 Allergy status to other drugs, medicaments and biological substances; Z87.891 Personal history of nicotine dependence; Z79.899 Other long term (current) drug therapy
CPT/HCPCS: 52332; 74420; 87088; 87186; C1769; C2617; J0690; J1100; J2250; J2370; J2405; J3010; Q9961

== ENCOUNTER → 2021-08-26 | Outpatient (REF) | payer MEDICARE, MEDICAID ==
[~2021-08-26] MED LIST changes: +HYDR-3911 PO; -LIDOCAINE 1% MDV 20ML VIAL SQ PRN
[2021-08-26 21:37] LABS: AMORPHOUS SEDIMENT SMALL (NEGATIVE); APPEARANCE, URINE TURBID (CLEAR); BACTERIA, URINE AUTO 3+ (NEGATIVE); BILIRUBIN, URINE AUTO NEGATIVE (NEGATIVE); BLOOD, URINE BLOOD NEGATIVE (NEGATIVE); COLOR, URINE YELLOW (YELLOW); GLUCOSE, URINE (UA) AUTO NEGATIVE (NEGATIVE); KETONE, URINE AUTO NEGATIVE (NEGATIVE); LEUKOCYTE ESTERASE, URINE AUTO 3+ (NEGATIVE); MUCUS, URINE SMALL (NEGATIVE); NITRITE, URINE AUTO NEGATIVE (NEGATIVE); PROTEIN, URINE AUTO 3+ mg/dL (NEGATIVE); RBC, URINE AUTO 9 /HPF (0-3); SPECIFIC GRAVITY URINE AUTO 1.013 (1.002-1.035); SQUAMOUS EPITHELIAL CELL UR AU 1 /HPF (0-6); UROBILINOGEN, URINE AUTO 0.2 mg/dL (0.0-2.0); WBC, URINE AUTO TNTC /HPF (0-3)
== END ==
LOC: M LAB REF 20:51
PROVIDERS: ATTEND Neurological Surgery
DX: Z01.818 Encounter for other preprocedural examination (principal); D35.2 Benign neoplasm of pituitary gland

== ENCOUNTER → 2021-08-29 | Outpatient (CLI) | payer MEDICARE, MEDICAID ==
[~2021-08-29] MED LIST changes: +LIQUID POLIBAR PLUS 105% w/v 750ML BTL As Ordered ONE
--- NOTE | 2021-08-29 16:16 | REP ---
INDICATION: CONSTIPATION. COMPARISON: None. TECHNIQUE: The procedure was performed under the direct supervision of Dr. Chaparro. The images were reviewed with Dr. Chaparro. The could barium and air were instilled into the colon in a retrograde flow of the barium and air mixture. FINDINGS: The hand booked folder and stitcher film shows no organomegaly or pathological mass is. The intestinal gas pattern is nonspecific. There is a double pigtail stent in the right ureter. The colon is redundant and capacious. There is free flow of contrast to the cecum. There are a few mobile filling defects seen throughout the examination consistent with small 2 particles from incomplete cleansing. There are no annular constricting lesions identified. There are no polypoid masses identified. IMPRESSION: The colon is redundant and capacious. Otherwise, double-contrast barium enema within normal limits. <Electronically signed by Olman Schaffer > 08/29/21 1507 <Electronically signed by Baljinder Chaparro > 08/29/21 1610
== END ==
LOC: M RAD 08:56
PROVIDERS: ATTEND Internal Medicine Gastroenterology
DX: K59.00 Constipation, unspecified (principal); Q43.8 Other specified congenital malformations of intestine; Z96.0 Presence of urogenital implants

== ENCOUNTER → 2021-08-29 | Outpatient (REF) | payer MEDICARE, MEDICAID ==
[~2021-08-29] MED LIST changes: -LIQUID POLIBAR PLUS 105% w/v 750ML BTL As Ordered ONE
[2021-08-29 16:42] LABS: APPEARANCE, URINE TURBID (CLEAR); BACTERIA, URINE AUTO NEGATIVE (NEGATIVE); BILIRUBIN, URINE AUTO NEGATIVE (NEGATIVE); BLOOD, URINE BLOOD 2+ (NEGATIVE); COLOR, URINE YELLOW (YELLOW); GLUCOSE, URINE (UA) AUTO NEGATIVE (NEGATIVE); KETONE, URINE AUTO NEGATIVE (NEGATIVE); LEUKOCYTE ESTERASE, URINE AUTO 2+ (NEGATIVE); NITRITE, URINE AUTO NEGATIVE (NEGATIVE); PROTEIN, URINE AUTO 3+ mg/dL (NEGATIVE); RBC, URINE AUTO TNTC /HPF (0-3); SPECIFIC GRAVITY URINE AUTO 1.015 (1.002-1.035); SQUAMOUS EPITHELIAL CELL UR AU 0 /HPF (0-6); UROBILINOGEN, URINE AUTO 0.2 mg/dL (0.0-2.0); WBC, URINE AUTO TNTC /HPF (0-3)
== END ==
LOC: M LAB REF 15:50
PROVIDERS: ATTEND Registered Nurse
DX: N30.00 Acute cystitis without hematuria (principal)

== ENCOUNTER → 2021-09-14 | Outpatient (REF) | payer MEDICARE, MEDICAID ==
[~2021-09-14] MED LIST changes: -FENO48TA7 PO; +FENO48TA8 PO; -IBUP200T45 PO; +IBUP200T46 PO
[2021-09-14 13:07] LABS: APPEARANCE, URINE CLOUDY (CLEAR); BACTERIA, URINE AUTO 2+ (NEGATIVE); BILIRUBIN, URINE AUTO NEGATIVE (NEGATIVE); BLOOD, URINE BLOOD 2+ (NEGATIVE); COLOR, URINE YELLOW (YELLOW); GLUCOSE, URINE (UA) AUTO NEGATIVE (NEGATIVE); KETONE, URINE AUTO NEGATIVE (NEGATIVE); LEUKOCYTE ESTERASE, URINE AUTO 3+ (NEGATIVE); MUCUS, URINE SMALL (NEGATIVE); NITRITE, URINE AUTO NEGATIVE (NEGATIVE); PROTEIN, URINE AUTO 2+ mg/dL (NEGATIVE); RBC, URINE AUTO 51 /HPF (0-3); SPECIFIC GRAVITY URINE AUTO 1.009 (1.002-1.035); SQUAMOUS EPITHELIAL CELL UR AU 0 /HPF (0-6); UROBILINOGEN, URINE AUTO 0.2 mg/dL (0.0-2.0); WBC, URINE AUTO TNTC /HPF (0-3)
== END ==
LOC: M LAB REF 11:00
PROVIDERS: ATTEND Registered Nurse
DX: N30.00 Acute cystitis without hematuria (principal)

== ENCOUNTER 2021-09-19 12:28 | Emergency (ER) | payer MEDICARE, MEDICAID ==
[~2021-09-19] VITALS: Ht 157.5 cm; Wt 53.1 kg
--- OUTSIDE RECORDS SUMMARY | 2021-09-19 12:37 | CCD | Continuity of Care Document ---
Author Author Lucy DE PAZ FINANCIAL INSTITUTION BRANCH MANAGER Organization Unknown Address [address] [place] [address] Phone [phone] Care Team Providers Care Net C Developer Name Role Phone Martha Ortiz MD AUT [phone] Problems Active Problems Provider Date Pure hypercholesterolemia Onset: 019 Dominant nodule of thyroid Madyson Watters MD Onset: 2018 Social History Type Date Description Comments Sex Unknown Tobacco Use Start: Unknown Never Smoked Cigarettes ETOH Use Never used alcohol Tobacco Use Start: Unknown Patient has never smoked Smoking Status Reviewed: 08/19/21 Patient has never smoked Allergies and adverse reactions Active Allergies Criticality Reaction | Severity Comments Date W/ Epi Unable to assess criticality 04/07/2019 Medications Active Medications SIG Qnty Indications Ordering Provide r Date Dex4 Glucose 4-6GM-mg Chewtabs take 3 tablets for Blood sugar< 70 and symptoms 90units Madyson Watters MD 01/01/2021 Embrace Lancets Ultra Thin 30G Thin 30G Misc use as directed to check blood sugars twice daily 200units E11.65 Bette De Paz NP 12/12/2019 Embrace Blood Glucose Test Strips Strips use to test blood sugars twice a day 200units E11.65 Bette sterling NP 10/06/2019 Pen [place] 31G X 8 mm Misc use as directed 1 x per day e11.65 100units E11.65 Bette De Paz NP 09/29/2019 Torsemide 5mg Tablets 1 by mouth daily Unknown Seroquel 50mg Tablets 1 by mouth daily Unknown Neurontin 300mg Capsules every night then after a week twice a day Unknown 00/00/0 000 Latanoprost 0.005% Solution p rn Unknown Debrox 6.5% Solution prn Unknown Ferrous Sulfate 325(65Fe) mg Table ts 1 po daily Unknown Linzess 145mcg Capsules 1 po qd Unknown Flonase Allergy Relief 50mcg/Act Suspension 2 sprays (50 mcg/spray) per nostril once daily Unknown Zoloft 100mg Tablets 1 by mouth every day Unknown Imitrex 25mg Tablets prn Unknown Wellbutrin SR 100mg Tablets ER 12H R 1 po bid Unknown Lamictal 100mg Tablets 1 by mouth twice a day Unknown Zyrtec Allergy 10mg Tablets 1 by mouth every day Unknown Vitamin D3 1000Unit Capsules 1 by mouth bid Unknown Incruse Ellipta 62.5mcg/Inh Aeroso l one puff daily Unknown Tricor 48mg Tablets 1 by mouth every day Unknown Zocor 40mg Tablets take one tablet by mouth at bedtime Unknown Multivitamin Adult Tablets 1 by mouth every day Unknown Nexium 40mg Capsules DR 1 by mouth every day Unknown Magnesium Oxide 400mg Tablets 2 by mouth every day Unknown Metformin HCL 1000mg Tablets take one tablet by mouth twice a day 60tabs E11.65 Madyson Watters MD Fosamax 70mg Tablets 1 by mouth weekly Unknown Immunizations Description No Information Available Vital Signs Date Vital Result Comment 08/19/2021 10:28am BP Systolic 118 mmHg BP Diastolic 80 mmHg Heart Rate 78 /min Height 61 inches 5'1" Weight 107.50 lb BMI (Body Mass Index) 20.3 kg/m2 O2 % BldC Oximetry 96 % 03/31/2021 3:42pm BP Systolic 136 mmHg BP Diastolic 80 mmHg Heart Rate 60 /min Body Temperature 97.5 F Height 61 inches 5'1" Weight 108.25 lb BMI (Body Mass Index) 20.5 kg/m2 O2 % BldC Oximetry 98 % Results Test Acquired Date Facility Test Result H/L Range Note Laboratory test finding 08/19/2021 In House Glucose 188 Hemoglobin A1c 7.0 Procedures Date Code Description Status 08/19/2021 80595 Office/Outpatient Established Mo d MDM 30-39 Min Completed 08/01/2021 [id number] Diabetic Foot Exam Completed 03/31/2021 77413 Office/Outpatient Established Hi gh MDM 40-54 Min Completed Medical Devices Description No Information Available Encounters Type Date Location Provider Dx Diagnosis Office Visit 08/19/2021 10:30a DR. 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 Madyson Watters MD E 23.6 Other disorders of pituitary gland E11.65 Type 2 diabetes mellitus wit h hyperglycemia Assessments Date Code Description Provider 08/19/2021 E11.65 Type 2 diabetes mellitus with hy perglycemia Bette De Paz NP 08/19/2021 E23.6 Other disorders of pituitary gla nd Bette De Paz NP 03/31/2021 E23.6 Other disorders of pituitary gla nd Madyson Watters MD 03/31/2021 E11.65 Type 2 diabetes mellitus with hy perglycemia Madyson Watters MD Plan of Treatment Future Appointment(s):* 02/12/2022 3:45 pm - Bette De Paz NP at DR. Madyson Watters 08/19/2021 - Bette De Paz NP* E11.65 Type 2 diabetes mellitus with hyperglycemia* New Labs:* Basic Metabolic Profile, Scheduled: 01/20/22 * Comments:* 08/19/21- in office A1c= 7 % (5.4% down from 6.1%, 7%.) Random BS= 188 Blood sugar log reviewed- fasting- 98-197, bedtime- 72-193Current medications: Metformin 1000 mg twice a day, DIET:. No more than 55 g of carbohydrates with breakfast lunch and dinner and not more than 25 g of carbohydrates with a meal. Labs 10/03/2020- creatinine = 0.75, GFR >60, microalbumin ratio = 2727 Will continue same. RTO 6 months * Follow up:* Follow up in 6 months. 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 02/11, somatomedin C = 347, this is elevated.She completed an MRI of the pituitary gland at the neurology office. 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 Status post right frontoparietal craniotomy.Disease state of abnormality explained to the patient and her sister and the [facility] staff.Explained that she needs a referral to the neurosurgeon. Explained that approach through the back of the nose and the need to also see ear nose and throat.Surgery is always recommended as first line of treatment.Will recheck IGF-1 prior to next appt 01/2022 " is waiting for repeat MRI" Functional Status Description No Information Available Mental Status Description No Information Available Referrals Description No Information Available
--- OUTSIDE RECORDS SUMMARY | 2021-09-19 12:37 | CCD | Continuity of Care Document ---
Author Author Lucy DE PAZ NEWS PRODUCTION ASSISTANT Organization Unknown Address [address] [place] [address] Phone [phone] Care Team Providers Care Superintendent Building Name Role Phone Martha Ortiz MD AUT [phone] Problems Active Problems Provider Date Pure hypercholesterolemia Onset: 019 Dominant nodule of thyroid Madyson Watters MD Onset: 2018 Social History Type Date Description Comments Sex Unknown Tobacco Use Start: Unknown Never Smoked Cigarettes ETOH Use Never used alcohol Tobacco Use Start: Unknown Patient has never smoked Smoking Status Reviewed: 08/19/21 Patient has never smoked Allergies, Adverse Reactions, Alerts Active Allergies Criticality Reaction | Severity Comments [...] 200units E11.65 Bette sterling NP 10/06/2019 Pen [place] 31G X 8 mm Misc use as directed 1 x per day e11.65 100units E11.65 Bette De Paz NP 09/29/2019 Torsemide 5mg Tablets 1 by mouth daily Unknown Seroquel 50mg Tablets 1 by mouth daily Unknown Neurontin 300mg Capsules every night then after a week twice a day Unknown 0000/0 000 Latanoprost 0.005% Solution p rn Unknown [...] A1c 7.0 Procedures Date Code Description Status 08/01/2021 900642768 Diabetic Foot Exam Completed 03/31/2021 77961 Office/Outpatient Established Hi gh MDM 40-54 Min Completed 02/20/2021 25680 Office/Outpatient Established Mo d MDM 30-39 Min Completed Medical Devices Description No Information Available Encounters Type Date Location Provider Dx Diagnosis Office Visit 03/31/2021 3:45p DR. Madyson Watters MD E 23.6 Other disorders of pituitary gland E11.65 Type 2 diabetes mellitus wit h hyperglycemia Office Visit 02/20/2021 2:45p DR. Madyson Watters MD E 23.6 Other disorders of pituitary gland Assessments Date Code Description Provider 08/19/2021 E11.65 Type 2 diabetes mellitus with hy perglycemia Bette De Paz NP 08/19/2021 E23.6 Other disorders of pituitary gla nd Bette De Paz NP 03/31/2021 E23.6 Other disorders of pituitary gla nd Madyson Watters MD 03/31/2021 E11.65 Type 2 diabetes mellitus with hy perglycemia Madyson Watters MD 02/20/2021 E23.6 Other disorders of pituitary gla nd Madyson Watters MD Plan of Treatment 08/19/2021 - Bette De Paz NP* E11.65 [...] the patient and her sister and the [facility] staff.Explained that she needs a referral to the neurosurgeon. Explained that approach through the back of the nose and the need to also see ear nose and throat.Surgery is always recommended as first line of treatment.If IGF-I level remains elevated thereafter we will give her medical therapy. Functional Status Description No Information Available Mental Status Description No Information Available Referrals Refer to Reason for Referral Status Appt Date Madyson Watters MD MRI PITUITARY NO AUTH REQUIR ED, BASED ON MEDICAL NECESSITY. Created [facility] [address] [facility], [address] [place] [address] [phone]
--- OUTSIDE RECORDS SUMMARY | 2021-09-19 12:37 | CCD ---
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 818 Active confirmed 049862660 Problem Urinary frequency R35.0 Active confirmed 16 7412145 Problem Chronic obstructive pulmonary disease, unspecified COPD ty pe J44.9 Active confirmed 26385928 Problem Kidney stones N20.0 Active confirmed 256726 07 Problem Pyelonephritis N12 Active confirmed 15847 000 ALLERGIES Allergen (clinical drug ingredient) Drug/Non Drug Allergy do cumented on EMR Reaction Allergy Type Onset Date Status novocaine Rash Non Drug Allergy Active ENCOUNTERS from 1957 to 2021-08-26 Encounter Location Date Provider Diagnosis [facility] [address] [phone] [place] [address] Aug, Lorna Garland IMMUNIZATIONS No Information SOCIAL HISTORY Tobacco Use: Social History Observation Description Date Details (start date - stop date) Former Smoker Sex Assigned At : Social History Observation Description Sex Assigned At Unknown Tobacco Use: Question Answer Notes Are you a: former smoker How long has it been since you last smoked? 1-5 years REASON FOR REFERRAL No Information VITAL SIGNS No information MEDICATIONS Medication SIG (Take, Route, Frequency, Duration) Notes Start Da te End Date Status Tradjenta 5 MG 1 tablet Orally Once a day Active ZyrTEC Allergy 10 MG 1 tablet Orally Once a day Active Farxiga 5 MG 1 tablet Orally Once a day Active Wellbutrin SR 100 MG 1 tablet Orally Twice a day Active Magnesium 400mg. 1 tab Orally twice daily Active Imitrex 25 MG as directed Orally Act melissa Fosamax 70 MG 1 tablet Orally once weekly Active Macrobid 100 MG 1 cap Orally bid for 14 day(s) Jul, Active Incruse Ellipta 62.5 MCG/INH 1 puff Inhalation Once a day Active metFORMIN HCl 1000 MG 1 tab Orally Twice a day Active Basaglar KwikPen 100 UNIT/ML as directed Subcutaneous 30 units at bed time Active Zoloft 100 MG 1 tablet Orally Once a day Active Seroquel 50 MG 1 tablet Orally qhs A ctive Tricor 48 MG 1 tablet Orally Once a day for 30 day(s) Active LaMICtal 100 MG 2 tablets Orally once daily Active Multivitamins otc 1 tablet Orally once a day Active Zocor 40 MG 1 tablet every evening Orally Once a day for 30 day(s) Active PROCEDURES No Information RESULTS No Results REASON FOR VISIT URINE MEDICAL (GENERAL) HISTORY Type Description Date Medical History diabetic Medical History hx. of hyperlipidemia Medical History migraine headache Medical History hx. of alcohol abuse Medical History chronic breathing problems Medical History CALCIUM STOPPED PER [facility] NURS E DUE TO NEW DX. HYPO-PARATHYROIDISM----02/06/11 Medical History osteopenia Medical History Kidney stones Surgical History brain surgery/head injury 2003 Surgical History tubal ligation 1982 Surgical History colonoscopy 2009,2010,2019 Surgical History ovarian cystectomy 11/2013 Surgical History CYSTO 11/2017 Surgical History chronic right ureteral stent exchanges. 01/30/2021 Hospitalization History surgery related Hospitalization History kidney infection Hospitalization History blood transfusion Goals Section No Information Health Concerns No Information MEDICAL EQUIPMENT No Information MENTAL STATUS No Information FUNCTIONAL STATUS No Information ASSESSMENTS No Information PLAN OF TREATMENT Medication Medication Name Sig Start Date Stop Date Macrobid 100 MG 1 cap Orally bid for 14 day(s) Jul, Next Appt Details Provider Name:Lorna Garland, 1 10:15:00 AM, [address], , [place], [address], Insurance Providers Payer Name Payer Address Payer Phone Insured Name Patient Relati onship to Insured Coverage Start Date Coverage End Date MEDICARE Part A and B [address] [facility] [phone] JOHANNA WILSON self MEDICAID [facility] [address] [facility] [id number] JOHANNA WILSON self
--- OUTSIDE RECORDS SUMMARY | 2021-09-19 12:37 | CCD ---
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 818 Active confirmed 075222850 Problem Urinary frequency R35.0 Active confirmed 16 9486219 Problem Chronic obstructive pulmonary disease, unspecified COPD ty pe J44.9 Active confirmed 16672673 Problem Kidney stones N20.0 Active confirmed 756408 07 Problem Pyelonephritis N12 Active confirmed 20961 000 ALLERGIES Allergen (clinical drug ingredient) Drug/Non Drug Allergy do cumented on EMR Reaction Allergy Type Onset Date Status Novocain Rash Drug Allergy Active ENCOUNTERS from 1957 to 2021-09-17 Encounter Location Date Provider Diagnosis [facility] [address] [phone] [place] [address] Aug, Lorna Garland IMMUNIZATIONS No Information SOCIAL [...] Information RESULTS No Results REASON FOR VISIT UTI MEDICAL (GENERAL) HISTORY Type Description Date Medical History diabetic Medical History hx. of hyperlipidemia Medical History migraine headache Medical History hx. of alcohol abuse Medical History chronic breathing problems Medical History CALCIUM STOPPED PER [facility] NURS E DUE TO NEW DX. HYPO-PARATHYROIDISM----02/06/11 [...] Details Provider Name:Lorna Garland, 1 10:15:00 AM, [address], , [place], [address], Insurance Providers Payer Name Payer Address Payer Phone Insured Name Patient Relati onship to Insured Coverage Start Date Coverage End Date MEDICARE Part A and B [address] [facility] [phone] JOHANNA WILSON self MEDICAID [facility] [address] [facility] [id number] JOHANNA WILSON self
--- OUTSIDE RECORDS SUMMARY | 2021-09-19 12:37 | CCD | Continuity of Care Document ---
Author Author Lucy DE PAZ SUPPORT DBA Organization Unknown Address [address] [place] [address] Phone [phone] Care Team Providers Care Furnace Attendant Name Role Phone Martha Ortiz MD AUT [phone] Problems Active Problems Provider Date Pure hypercholesterolemia [...] 200units E11.65 Bette sterling NP 10/06/2019 Pen [place] 31G X 8 mm Misc use as [...] 7.0 Procedures Date Code Description Status 08/19/2021 35024 Office/Outpatient Established Mo d MDM 30-39 Min Completed 08/01/2021 347110387 Diabetic Foot Exam Completed 03/31/2021 72338 Office/Outpatient Established Hi gh MDM 40-54 Min Completed 02/20/2021 57153 Office/Outpatient Established Mo d MDM 30-39 Min [...] 2 diabetes mellitus with hy perglycemia Madyson Watetrs MD 02/20/2021 E23.6 Other disorders of pituitary gla nd Madyson Watters MD Plan of Treatment Future [...] the patient and her sister and the [facility] staff.Explained that she needs a referral to the neurosurgeon. Explained that approach through the back of the nose and the need to also see ear nose and throat.Surgery is always recommended as first line of treatment.Will recheck IGF-1 prior to next appt 01/2022 Functional Status Description No Information Available Mental Status Description No Information Available Referrals Refer to Reason for Referral Status Appt Date Madyson Watters MD MRI PITUITARY NO AUTH REQUIR ED, BASED ON MEDICAL NECESSITY. LS Created [address] [facility], [address] [place] [address] [phone]
--- OUTSIDE RECORDS SUMMARY | 2021-09-19 12:37 | CCD ---
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 818 Active confirmed 407276786 Problem Urinary frequency R35.0 Active confirmed 16 2923984 Problem Chronic obstructive pulmonary disease, unspecified COPD ty pe J44.9 Active confirmed 29311658 Problem Kidney stones N20.0 Active confirmed 756140 07 Problem Pyelonephritis N12 Active confirmed 63624 000 ALLERGIES Allergen (clinical drug ingredient) Drug/Non Drug Allergy do cumented on EMR Reaction Allergy Type Onset Date Status novocaine Rash Non Drug Allergy Active ENCOUNTERS from 1957 to 2021-08-26 Encounter Location Date Provider Diagnosis [facility] [address] [phone] [place] [address] Aug, Lorna Garland UTI (urinary tract infection) N39.0 IMMUNIZATIONS No Information SOCIAL HISTORY Tobacco Use: [...] Information RESULTS No Results REASON FOR VISIT UA MEDICAL (GENERAL) HISTORY Type Description Date Medical History diabetic Medical History hx. of hyperlipidemia Medical History migraine headache Medical History hx. of alcohol abuse Medical History chronic breathing problems Medical History CALCIUM STOPPED PER [facility] NURS E DUE TO NEW [...] No Information FUNCTIONAL STATUS No Information ASSESSMENTS Encounter Date Diagnosis Assessment Notes Treatment Notes Treatm ent Clinical Notes Aug, UTI (urinary tract infection) (ICD-10 - N39.0) PLAN OF TREATMENT Medication Medication Name Sig Start Date Stop Date Macrobid 100 MG 1 cap Orally bid for 14 day(s) Jul, Future Test Test Name Order Date URINE CULTURE [id number] UA URINALYSIS [id number] Next Appt Details Provider Name:Lorna Suh Dada, 1 10:15:00 AM, [address], , [place], [address], Insurance Providers Payer Name Payer Address Payer Phone Insured Name Patient Relati onship to Insured Coverage Start Date Coverage End Date MEDICARE Part A and B [address] [facility] [phone] JOHANNA WILSON self MEDICAID [facility] [address] [facility] [id number] JOHANNA WILSON self
--- OUTSIDE RECORDS SUMMARY | 2021-09-19 12:37 | CCD | Continuity of Care Document ---
Author Author [facility], Lucy Organization Unknown Address [facility] [address] [place] [address] Phone [phone] Care Team Providers Care Ladle Filler Name Role Phone Madyson Watters M.D. AUTM [phone] Martha Mejia MD AUTM [phone] Patrick Ram MD AUTM [phone] Problems Description No Information Available Social History Type Date Description Comments Sex Unknown ETOH Use Denies alcohol use past hx of al coholism Tobacco Use Start: Unknown End: Patient is a former smoker 1 ppd x 18 Recreational Drug Use Denies Drug Use Smoking Status Reviewed: 05/06/21 Patient is a former smoker 1 ppd x 18 Allergies, Adverse Reactions, Alerts Active Allergies Criticality Reaction | Severity Comments Date Yaw Unable to assess criticality 05/06/2021 Medications Active Medications SIG Qnty Indications Ordering Provide r Date Multivitamin Tablets 1 by mouth every day Unknown Aimovig 70mg/ml Solution Auto-Inject Martha Mejia MD Vitamin D3 25mcg (1000 Ut) Chewtab s 1 by mouth every day Unknown Omeprazole 20mg Capsules DR 1 by mouth every day Unknown Zyrtec Allergy 10mg Tablets 1 by mouth every day Unknown Zoloft 100mg Tablets 1 by mouth every day Unknown Zocor 40mg Tablets 1 by mo uth every day Unknown Wellbutrin SR 100mg Tablets ER 12H R 1 by mouth every day Unknown Tricor 48mg Tablets 1 by mouth every day Unknown Torsemide 5mg Tablets 1 by mouth every day Unknown Seroquel 50mg Tablets take 1 tablet by mouth AT bedtime Unknown Neurontin 300mg Capsules 1 tab by mouth three times a day Unknown Ferrous Sulfate 324(65Fe) mg Table ts DR 1 by mouth every day Unknown Miralax 17gm Packet needed Unknown Metformin HCL 1000mg Tablets take 1 tablet by mouth 2 times per day with meals for type 2 diabetes Unknown Magnesium 400mg Tablets 1 by mouth every day Unknown Linzess 145mcg Capsules 1 by mouth every day Unknown Latanoprost 0.005% Solution Unknown Lamictal 100mg Tablets 1 by mouth twice a day Unknown Incruse Ellipta 62.5mcg/Inh Aeroso l one inhalation once a day, rinse mouth after use Unk nown Imitrex 25mg Tablets take 1 tablet by mouth once with fluids early possible after the onset of a migraine attack Unknown Fosamax 70mg Tablets take 1 tablet by oral route every week in the morning, AT least 30 min before first food, beverage, Unknown Flonase Allergy Relief 50mcg/Act Suspension 1 spray intranasal twice a day needed Unknown Fiber-Lax 625mg Tablets take 2 tablets by mouth once daily for constipation Unknown Immunizations CPT Code Status Date Vaccine Lot # [id number] Given 12/26/2020 [facility] Covid-19 Sars-Cov-2, mRNA, LNP-S, PF, 100 mcg/ 0.5 mL 70965 Given 11/28/2020 [facility] Covid-19 Sars-Cov-2, mRNA, LNP-S, PF, 100 mcg/ 0.5 mL Vital Signs Date Vital Result Comment 07/30/2021 2:36pm Height 60.5 inches 5'0.50" Weight 111.00 lb BMI (Body Mass Index) 21.3 kg/m2 BP Systolic 160 mmHg BP Diastolic 92 mmHg Heart Rate 71 /min 05/06/2021 12:59pm Height 60.5 inches 5'0.50" Weight 110.00 lb BMI (Body Mass Index) 21.1 kg/m2 BP Systolic 129 mmHg BP Diastolic 78 mmHg Heart Rate 73 /min Body Temperature 98.5 F Body Temperature 36.9 C Respiratory Rate 73 /min Results Test Acquired Date Facility Test Result H/L Range Note Coronavirus 2019 Nasopharygeal 08/02/2021 [facility] [address] [place] [address] [phone] Coronavirus 2019 Nasopharygeal ASSAY INFORMATIO <SEE N OTE> 1 Laboratory test finding 07/30/2021 [facility] [address] [place] [address] [phone] Miscellaneous ok - 2 Lacny MRSA/Mssa By PCR done - 3 1 ASSAY INFORMATION: Real Time RT-PCR NOTE: The COVID-19 assay has been cleared by the U.S. Food and Drug Administration under the Emergency Use Authorization (EUA). [facility] are designated as high complexity laboratories by the Clinical Laboratory Improvement Amendments of 1988(CLIA) and are qualified to perform this test. Not Detected 2 MRSA/MSSA nasal swab 3 MRSA/MSSA nasal swab Procedures Date Code Description Status 07/30/2021 53039 Office/Outpatient Established Hi gh MDM 40-54 Min Completed 05/06/2021 33623 Office/Outpatient New High MDM 6 0-74 Minutes Completed Medical Devices Description No Information Available Encounters Type Date Location Provider Dx Diagnosis Office Visit 07/30/2021 1:40p [facility] [place] D35.2 Benign neoplasm of pituitary gland Z01.818 Encounter for other preproce dural examination Office Visit 05/06/2021 1:00p [facility] Patrick Ram MD D35.2 Benign neoplasm of pituitary gland Assessments Date Code Description Provider 07/30/2021 D35.2 Benign neoplasm of pituitary gla nd [facility] [place] 07/30/2021 Z01.818 Encounter for other preprocedura l examination [facility] [place] 07/30/2021 D35.2 Benign neoplasm of pituitary gla nd [facility] 07/30/2021 Z01.812 Encounter for preprocedural labo ratory examination [facility] 05/06/2021 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 She is at her neurological baseline. I answered all of her questions to her full satisfaction.We discussed the hospitalization and need for close monitoring for CSF leak and for laboratory abnormalities requiring hormone replacement. I told her to expect to be in the hospital for 4 to 5 days.She is agreeable to proceed with the surgery as planned.She is scheduled for Covid test on Wednesday, August 04, 2021. She is fully vaccinated. * Follow up:* 2 weeks post op * Z01.818 Encounter for other preprocedural examination Functional Status Description No Information Available Mental Status Description No Information Available Referrals Refer to Reason for Referral Status Appt Date Fabiola Jeffery MD 66 year old female with acro megaly and pituitary macroadenoma. Sent [facility] [address] [place] [address], [address] [place] [address] [phone]
--- OUTSIDE RECORDS SUMMARY | 2021-09-19 12:37 | CCD ---
Author Author [facility] Organization [facility] Address Unknown Phone Unavailable Care Team Providers Care Pipe Stress Engineer Name Role Phone Mich Arteaga Unavailable PROBLEMS Type Condition ICD9-CM Code NOC84-NV Code Onset Dates Condition S tatus W/U Status Risk SNOMED Code Notes Problem Postmenopausal atrophic vaginitis 627.3 Active con firmed 69619573 Problem Low bone mass M85.80 Active confirmed 028412 000 Problem Ureteral stricture, right N13.5 Active confirmed 77983572 Problem Preop testing Z01.818 Active confirmed 78115 9001 Problem UTI (urinary tract infection) N39.0 Active confirm ed 27576267 Problem Pseudomonas aeruginosa infection A49.8 Active conf irmed 71267892 Problem Microscopic hematuria R31.29 Active confirmed 141033888 Problem Kidney atrophy N26.1 Active confirmed 78356 005 Problem Encounter for other preprocedural examination Z01. 818 Active confirmed 370625465 Problem Urinary frequency R35.0 Active confirmed 16 1512490 Problem Chronic obstructive pulmonary disease, unspecified COPD ty pe J44.9 Active confirmed 90202778 Problem Kidney stones N20.0 Active confirmed 149458 07 Problem Pyelonephritis N12 Active confirmed 84598 000 ALLERGIES Allergen (clinical drug ingredient) Drug/Non Drug Allergy do cumented on EMR Reaction Allergy Type Onset Date Status novocaine Rash Non Drug Allergy Active ENCOUNTERS from 1957 to 2021-08-18 Encounter Location Date Provider Diagnosis [facility] [address] [phone] [place] [address] Jul, Mich Arteaga IMMUNIZATIONS No Information SOCIAL HISTORY Tobacco Use: [...] Information RESULTS No Results REASON FOR VISIT back to work slip MEDICAL (GENERAL) HISTORY Type Description Date Medical History diabetic Medical History hx. of hyperlipidemia Medical History migraine headache Medical History hx. of alcohol abuse Medical History chronic breathing problems Medical History CALCIUM STOPPED PER [facility] NURS E DUE TO NEW [...] 14 day(s) Jul, Next Appt Details Provider Name:Mare Almodovrajac, 2021-08-20 03:00:00 PM, [address] [facility], , [place], [address], Provider Name:Lorna Garland, 2021-10-22 5 10:45:00 AM, [address], , [place], [address], Insurance Providers Payer Name Payer Address Payer Phone Insured Name Patient Relati onship to Insured Coverage Start Date Coverage End Date MEDICAID [place] [address] [facility] [id number] [phone] JOHANNA WILSON self MEDICARE Part A and B [address] [facility] [phone] JOHANNA WILSON self
--- OUTSIDE RECORDS SUMMARY | 2021-09-19 12:38 | CCD | Continuity of Care Document ---
Author Lucy Marina DPGeraldine Organization Unknown Address [address] [place] [address], [facility] [address] [place] [address] Phone [phone] Care Team Providers Care Vision Impaired Teacher Name Role Phone Stephen Melanie WEIR [phone] Problems Active Problems Provider Date Pronation Roman De Leon DPM Onset: 10/24/2017 Onychomycosis Roman De Leon DPM Onset: 10/24/2017 Type 2 diabetes mellitus Roman De Leon DPM Onset: 017 Social History Type Date Description Comments Sex Unknown ETOH Use Never used alcohol Tobacco Use Start: Unknown Patient has never smoked Allergies, Adverse Reactions, Alerts Active Allergies Criticality Reaction | Severity Comments Date Yaw Unable to assess criticality 09/14/2017 Medications Active Medications SIG Qnty Indications Ordering Provide r Date Sulfamethoxazole/Trimethoprim DS 800-160mg Tablets Unknown D3 High Potency 1000Unit Capsules Take One Capsule By Mouth Every Morning Unknown 0 Sumatriptan Succinate 25mg Tablets Stephen PEDIATRIC SPORTS MEDICINE SPECIALIST, Melanie Fluticasone Propionate 50mcg/Act Suspension Stephen PEDIATRIC SPORTS MEDICINE SPECIALIST, Melanie Incruse Ellipta 62.5mcg/Inh Aerosol Stephen PEDIATRIC SPORTS MEDICINE SPECIALIST, Melanie Simvastatin 40mg Tablets Stephen DESTIN, Melanie Bupropion HCL ER (SR) 100mg Tablets ER 12HR Nora Wick,Andrea Lamotrigine 100mg Tablets Nora Wick,Andrea Acamprosate Calcium 333mg Tablets DR Nora Wick,Andrea Farxiga 5mg Tablets Stephen DESTIN, [facility] Metformin HCL 1000mg Tablets Stephen PEDIATRIC SPORTS MEDICINE SPECIALIST, [facility] Alendronate Sodium 70mg Tablets Stephen PEDIATRIC SPORTS MEDICINE SPECIALIST, [facility] Esomeprazole Magnesium 40mg Capsules DR Stephen , [facility] Quetiapine Fumarate 50mg Tablets [facility] [place] Tradjenta 5mg Tablets Stephen PEDIATRIC SPORTS MEDICINE SPECIALIST, [facility] Sertraline HCL 100mg Tablets Nora Wick,[place] Fenofibrate 48mg Tablets Stephen PEDIATRIC SPORTS MEDICINE SPECIALIST, [facility] Immunizations Description No Information Available Vital Signs Date Vital Result Comment 08/03/2019 2:01pm Height 60 inches 5'0" Weight 120.00 lb BP Systolic 88 mmHg BP Diastolic 60 mmHg Heart Rate 68 /min BMI (Body Mass Index) 23.4 kg/m2 09/14/2017 3:45pm Weight 109.00 lb BP Systolic 110 mmHg BP Diastolic 60 mmHg Heart Rate 62 /min Results Description No Information Available Procedures Date Code Description Status 08/01/2021 08692 Office/Outpatient Established [facility] 10-19 Min Completed 04/01/2021 28011 Office/Outpatient Established [facility] 10-19 Min Completed Medical Devices Description No Information Available Encounters Type Date Location Provider Dx Diagnosis Office Visit 08/01/2021 3:30p [place] [facility] Roman De Leon DPM B35.1 Tinea unguium E11.9 Type 2 diabetes mellitus wit hout complications Office Visit 04/01/2021 3:45p [place] [facility] Roman De Leon DPM B35.1 Tinea unguium E11.9 Type 2 diabetes mellitus wit hout complications Assessments Date Code Description Provider 08/01/2021 B35.1 Tinea unguium Roman De Leon DPM 08/01/2021 E11.9 Type 2 diabetes mellitus without complications Roman De Leon DPM 04/01/2021 B35.1 Tinea unguium Roman De Leon DPM 04/01/2021 E11.9 Type 2 diabetes mellitus without complications Roman De Leon DPM Plan of Treatment Future Appointment(s):* 10/10/2021 3:30 pm - Roman De Leon DPM at [facility] Functional Status Description No Information Available Mental Status Description No Information Available Referrals Description No Information Available
--- OUTSIDE RECORDS SUMMARY | 2021-09-19 12:38 | CCD | Continuity of Care Document ---
Author Author Lucy GEORGES [place] Organization Unknown Address [address], [address] [place] [address] Phone [phone] Care Team Providers Care Obstetrics And Gynecology Professor Name Role Phone Madyson Watters M.D. AUTM [phone] Martha Mejia MD AUTM [phone] Patrick Ram MD AUTM [phone] Problems Description No Information Available Social History [...] SIG Qnty Indications Ordering Provide r Date Miralax 17gm Packet needed Unknown Vitamin D3 25mcg (1000 Ut) Chewtab s [...] by mouth three times a day Unknown Multivitamin Tablets 1 by mouth every day Unknown Ferrous Sulfate 324(65Fe) mg Table ts DR 1 by mouth every day Unknown Metformin HCL 1000mg Tablets take 1 [...] CPT Code Status Date Vaccine Lot # [id number] Given 12/26/2020 [facility] Covid-19 Sars-Cov-2, mRNA, LNP-S, PF, 100 mcg/ 0.5 mL 04769 Given 11/28/2020 [facility] Covid-19 Sars-Cov-2, mRNA, LNP-S, PF, 100 mcg/ [...] 36.9 C Respiratory Rate 73 /min Results Description No Information Available Procedures Date Code Description Status 07/30/2021 24235 Office/Outpatient Established Mo d MDM 30-39 Min Completed 05/06/2021 46000 Office/Outpatient New High MDM 6 0-74 Minutes Completed Medical Devices Description No Information Available Encounters Type Date Location Provider Dx Diagnosis Office Visit 07/30/2021 1:40p [facility] [place] D35.2 Benign neoplasm of pituitary gland Office Visit 05/06/2021 1:00p [facility] Patrick Ram MD D35.2 Benign neoplasm of pituitary gland Assessments Date Code Description Provider 07/30/2021 D35.2 Benign neoplasm of pituitary gla nd [facility] [place] 05/06/2021 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 Sent [facility] [address] [place] [address], [address] [place] [id number] [phone]
--- OUTSIDE RECORDS SUMMARY | 2021-09-19 12:38 | CCD | Continuity of Care Document ---
Author Author Lucy GLASGOW PA-C Organization Unknown Address [facility] [address] [place] [address] Phone [phone] Problems Active Problems Provider Date Chronic alcoholism in remission Armando Glasgow PA-C Onset: 0 02/06/2020 Obsessive-compulsive disorder Armando Glasgow PA-C Onset: Alcohol dependence, uncomplicated Kacy Hathaway LCSW-Gregg Onset : 07/13/2018 Other specified disorders of brain MARLY Bradshaw Onse t: 07/13/2018 Mild mental handicap MARLY Bradshaw Onset: 07/13/2018 Social History Type Date Description Comments Sex Unknown Allergies, Adverse Reactions, Alerts Active Allergies Criticality Reaction | Severity Comments Date Novocaine Unable to assess criticality 07/19/2018 Seasonal Unable to assess criticality 07/19/2018 NKFA Unable to assess criticality 07/19/2018 Medications Active Medications SIG Qnty Indications Ordering Provide r Date Hydroxyzine HCL 50mg Tablets 1 tab by mouth every day at bedtime 90tabs F70 Javi Oconnell MD 07/26/2020 Fibercon 625mg Tablets Unknown Flonase Allergy Relief 50mcg/Act Suspension Unknown Debrox 6.5% Solution Unknown Zoloft 100mg Tablets 2 tabs by mouth every day 180tabs Javi Oconnell MD Imitrex 25mg Tablets Unknown Wellbutrin SR 100mg Tablets ER 12H R 1 tab by mouth twice a day Unknown Lamictal 100mg Tablets 2 tabs by mouth every day at bedtime 180tabs Javi Oconnell MD Zyrtec Allergy 10mg Capsules Unknown Vitamin D (Ergocalciferol) 21381Ywhr Capsules 1 tab by mouth weekly Unknown Calcium Carbonate Antacid 500mg Ch ewtabs Unknown Spiriva Handihaler 18mcg Capsules Unknown Tricor 48mg Tablets Unknown Zocor 40mg Tablets Unknown Multivitamin Adult Tablets Unknown Nexium 40mg Capsules DR Unknown Magnesium Oxide -MG Supplement 250mg Tablets 2 tabs by mouth twice a day Unknown Metformin HCL 1000mg Tablets Unknown Fosamax 70mg Tablets Unknown Immunizations Description No Information Available Vital Signs Date Vital Result Comment 07/19/2018 9:01am BP Systolic Sitting 144 mmHg BP Diastolic Sitting 87 mmHg Heart Rate 74 /min Body Temperature 98.2 F oral Respiratory Rate 20 /min O2 % BldC Oximetry 98 % Weight 148.75 lb Weight 67.473 kg Results Description No Information Available Procedures Date Code Description Status 07/29/2021 92715 Office/Outpatient Established Mo d MDM 30-39 Min Completed 03/25/2021 14089 Office/Outpatient Established Mo d MDM 30-39 Min Completed Medical Devices Description No Information Available Encounters Type Date Location Provider Dx Diagnosis Office Visit 07/29/2021 3:40p [facility] Armando Glasgow PA-C F70 Mild intellectual disabilities F42.9 Obsessive-compulsive disorde r, unspecified Assessments Date Code Description Provider 07/29/2021 F70 Mild intellectual disabilities Andrade Glasgow PA-C 07/29/2021 F42.9 Obsessive-compulsive disorder, u nspecrl Glasgow PA-C 03/25/2021 F70 Mild intellectual disabilities C bereket Glasgow PA-C 03/25/2021 F42.9 Obsessive-compulsive disorder, u nspanthony Glasgow PA-C Plan of Treatment Future Appointment(s):* 11/27/2021 3:40 pm - Armando Glasgow PA-C at [facility] Functional Status Description No Information Available Mental Status Description No Information Available Referrals Description No Information Available"
--- OUTSIDE RECORDS SUMMARY | 2021-09-19 12:38 | CCD | Continuity of Care Document ---
Author Author Lucy GEORGES [place] Organization Unknown Address [address], [address] [place] [address] Phone [phone] Care Team Providers Care Help Desk Internship Name Role Phone Madyson Watters M.D. AUTM [phone] Martha Mejia MD AUTM [phone] Patrick Ram MD AUTM [phone] Problems Description No Information Available Social History [...] CPT Code Status Date Vaccine Lot # [id number] Given 12/26/2020 [facility] Covid-19 Sars-Cov-2, mRNA, LNP-S, PF, 100 mcg/ 0.5 mL 35455 Given 11/28/2020 [facility] Covid-19 Sars-Cov-2, mRNA, LNP-S, PF, 100 mcg/ [...] Available Procedures Date Code Description Status 07/30/2021 26769 Office/Outpatient Established Mo d MDM 30-39 Min Completed 05/06/2021 70322 Office/Outpatient New High MDM 6 0-74 Minutes Completed Medical Devices Description No Information Available Encounters Type Date Location Provider Dx Diagnosis Office Visit 07/30/2021 1:40p [facility] [place] D35.2 Benign neoplasm of pituitary gland Office Visit 05/06/2021 1:00p [facility] Patrick Ram MD D35.2 Benign neoplasm of pituitary gland Assessments Date Code Description Provider 07/30/2021 D35.2 Benign neoplasm of pituitary gla nd [facility] [place] 05/06/2021 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 Sent [facility] [address] [place] [address], [address] [place] [id number] [phone]
--- OUTSIDE RECORDS SUMMARY | 2021-09-19 12:38 | CCD | Continuity of Care Document ---
Author Author Lucy LOWERY M.D. Organization Unknown Address [address] [facility], [address] [place] [address] Phone [phone] Care Team Providers Care Mold Burner Name Role Phone Martha Mejia M.D. AUTM [phone] Baldemar Can M.D. 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 Mild mental handicap Nicholas Kennedy MD Onset: 12/10/2017 Dysphagia Nicholas Kennedy MD Onset: 12/10/2017 Obstructive sleep apnea syndrome Nicholas Kennedy MD Onset: 12/10/2017 Social History Type Date Description Comments Sex Unknown Smokeless Tobacco Never Used Smokeless Tobacco ETOH Use H/O Abuse Recreational Drug Use Denies Drug Use Tobacco Use Start: Unknown End: Unknown Patient is a former smoker 1 PPD SMOKER Tobacco Use Start: Unknown Quit 2014 Allergies, Adverse Reactions, Alerts Active Allergies Criticality Reaction | Severity Comments Date Novacaine Unable to assess criticality SWELLING 09/27/2013 Medications Active Medications SIG Qnty Indications Ordering Provide r Date Preparation H 0.25-88.44% Supposit ory one suppository jessica night at bedtime for 7 days 48units Brenden Lowery M.D. 07/29/2021 Linzess 145mcg Capsules Take One Capsule By Mouth Every Morning 30 Minutes Prior To Breakfast bottle 30caps K59.00 Brenden Lowery M.D. 06/14/2019 Zocor 40mg Tablets 1tab qd Unknown Tricor 48mg Tablets 1tab qd Unknown Torsemide 5mg Tablets 1tab qd Unknown Seroquel 50mg Tablets 1tab qd Unknown Multi Vitamin Tablets 1tab q d Unknown Magnesium Oxide 400mg Tablets 2tabs (800mg) bid Unknown Incruse Ellipta 62.5mcg/Inh Aeroso l 1puff/qd Unknown Ferrous Sulfate 325mg Tablets 1tab qd Unknown Gabapentin 300mg Capsules 1ca p bid Unknown Vitamin D3 1000Unit Capsules 1cap qd Unknown Flonase Allergy Relief 50mcg/Act Suspension 2sprays/qd Unknown Debrox 6.5% Solution 3drops g gts Unknown Zoloft 100mg Tablets 2tabs qa m Unknown Imitrex 25mg Tablets 1tab prn Unknown Wellbutrin SR 100mg Tablets ER 12H R 1tab bid Unknown Lamictal 100mg Tablets 2tabs qhs Unknown Metformin HCL 1000mg Tablets 1tab bid Unknown Zyrtec Allergy 10mg Tablets 1 tab qd Unknown Fosamax 70mg Tablets 1tab qwk Unknown Immunizations Description No Information Available Vital Signs Date Vital Result Comment 07/21/2021 11:16am BP Systolic 150 mmHg BP Diastolic 86 mmHg Height 60 inches 5'0" Weight 106.00 lb BMI (Body Mass Index) 20.7 kg/m2 [place] Body Weight 100 lb Weight 48.082 kg BSA (Body Surface Area) 1.43 m2 09/19/2020 10:33am BP Systolic 142 mmHg BP Diastolic 84 mmHg Height 60 inches 5'0" Weight 113.00 lb BMI (Body Mass Index) 22.1 kg/m2 [place] Body Weight 100 lb Weight 51.257 kg BSA (Body Surface Area) 1.46 m2 Results Description No Information Available Procedures Date Code Description Status 07/21/2021 71215 Office/Outpatient Established Lo w MDM 20-29 Min Completed Medical Devices Description No Information Available Encounters Type Date Location Provider Dx Diagnosis Office Visit 07/21/2021 10:30a [facility] jai Lowery M.D. Z86.010 Personal history of colonic polyps K59.00 Constipation, unspecified R63.4 Abnormal weight loss Assessments Date Code Description Provider 07/21/2021 Z86.010 Personal history of colonic poly ps Brenden Lowery M.D. 07/21/2021 K59.00 Constipation, unspecified Shamir Lowery M.D. 07/21/2021 R63.4 Abnormal weight loss Brenden skinner M.D. Plan of Treatment No Information Available Functional Status Description No Information Available Mental Status Description No Information Available Referrals Refer to Reason for Referral Status Appt Date Brenden Lowery M.D. FECAL ENCOPRESIS Scheduled [facility] [address] [facility], [address] [address] [phone]
--- OUTSIDE RECORDS SUMMARY | 2021-09-19 12:38 | CCD | Continuity of Care Document ---
Author Lucy Marina DPGeraldine Organization Unknown Address [address] [place] [address], [facility] [address] [place] [address] Phone [phone] Care Team Providers Care Scrap Baler Name Role Phone Stephen Melanie WEIR [phone] Problems Active Problems Provider Date Pronation Roman [...] Unknown 0 Sumatriptan Succinate 25mg Tablets Stephen AIRFRAME [employer] POWERPLANT MECHANIC, Melanie Fluticasone Propionate 50mcg/Act Suspension Stephen [employer]FRAME [employer] POWERPLANT MECHANIC, Melanie Incruse Ellipta 62.5mcg/Inh Aerosol Stephen [employer]FRAME [employer]OWERPLANT MECHANIC, Melanie Simvastatin 40mg Tablets Stephen [employer]FRAME [employer] POWERPLANT MECHANIC, Melanie Bupropion HCL ER (SR) 100mg Tablets ER 12HR Nora Wick,Andrea Lamotrigine 100mg Tablets Nora Wick,Andrea Acamprosate Calcium 333mg Tablets DR Nora Wick,Andrea Farxiga 5mg Tablets Stephen DESTIN, Melanie Metformin HCL 1000mg Tablets Stephen [employer]FRAME [employer]OWERPLANT MECHANIC, [facility] Alendronate Sodium 70mg Tablets Stephen [employer]FRAME [employer]OWERPLANT MECHANIC, [facility] Esomeprazole Magnesium 40mg Capsules DR Stephen [employer]OWERPLANT MECHANIC, [facility] Quetiapine Fumarate [facility]mg Tablets [facility],[place] Tradjenta 5mg Tablets Stephen [employer]FRAME [employer]OWERPLANT MECHANIC, [facility] Sertraline HCL 100mg Tablets Nora Wick,[place] Fenofibrate 48mg Tablets Stephen [employer]FRAME [employer] POWERPLANT MECHANIC, [facility] Immunizations Description No Information Available Vital Signs [...] Information Available Procedures Date Code Description Status 04/01/2021 10569 Office/Outpatient Established [facility] 10-19 Min Completed Medical Devices Description No Information Available Encounters Type Date Location Provider Dx Diagnosis Office Visit 04/01/2021 3:45p [place] [facility] Roman De Leon DPM B35.1 Tinea unguium E11.9 Type 2 diabetes mellitus wit hout complications Assessments Date Code Description Provider 04/01/2021 B35.1 Tinea unguium Roman De Leon DPM 04/01/2021 E11.9 Type 2 diabetes mellitus without complications Roman De Leon DPM Plan of Treatment Future Appointment(s):* 10/10/2021 3:30 pm - Roman De Leon DPM at [place] [facility] Functional Status Description No Information Available Mental Status Description No Information Available Referrals Description No Information Available
--- OUTSIDE RECORDS SUMMARY | 2021-09-19 12:38 | CCD ---
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 818 Active confirmed 215374817 Problem Urinary frequency R35.0 Active confirmed 16 5493443 Problem Chronic obstructive pulmonary disease, unspecified COPD ty pe J44.9 Active confirmed 21862254 Problem Kidney stones N20.0 Active confirmed 410289 07 Problem Pyelonephritis N12 Active confirmed 43313 000 ALLERGIES Allergen (clinical drug ingredient) Drug/Non Drug Allergy do cumented on EMR Reaction Allergy Type Onset Date Status novocaine Rash Non Drug Allergy Active ENCOUNTERS from 1957 to 2021-07-22 Encounter Location Date Provider Diagnosis [facility] Urology [address] [phone] [place] [address] Jun, Lorna Garland Ureteral stricture, right N13.5 and Preo p testing Z01.818 IMMUNIZATIONS No Information SOCIAL HISTORY Tobacco Use: Social History Observation Description Date Details (start date - stop date) Former Smoker Sex Assigned At : Social History Observation Description Sex Assigned At Unknown Tobacco Use: Question Answer Notes Are you a: former smoker How long has it been since you last smoked? 1-5 years REASON FOR REFERRAL No Information VITAL SIGNS Weight 106 lbs Jun, Weight-kg 48.08 kg Jun, Height 59.5 in Jun, BMI 21.05 kg/m2 Jun, Heart Rate 77 /min Jun, Respiratory Rate 18 /min Jun, Temperature 97.7 degrees Fahrenheit Jun, Oximetry 96 Jun, Blood pressure systolic 136 mm Hg Jun, Blood pressure diastolic 86 mm Hg Jun, MEDICATIONS Medication SIG (Take, Route, Frequency, Duration) Notes Start Da te End Date Status Wellbutrin SR 100 MG 1 tablet Orally Twice a day Active Tradjenta 5 MG 1 tablet Orally Once a day Active metFORMIN HCl 1000 MG 1 tab Orally Twice a day Active Basaglar KwikPen 100 UNIT/ML as directed Subcutaneous 30 units at bed time Active Fosamax 70 MG 1 tablet Orally once weekly Active Magnesium 400mg. 1 tab Orally twice daily Active Imitrex 25 MG as directed Orally Act melissa Tricor 48 MG 1 tablet Orally Once a day for 30 day(s) Active Incruse Ellipta 62.5 MCG/INH 1 puff Inhalation Once a day Active Multivitamins otc 1 tablet Orally once a day Active Zocor 40 MG 1 tablet every evening Orally Once a day for 30 day(s) Active Farxiga 5 MG 1 tablet Orally Once a day Active Zoloft 100 MG 1 tablet Orally Once a day Active LaMICtal 100 MG 2 tablets Orally once daily Active Seroquel 50 MG 1 tablet Orally qhs A ctive ZyrTEC Allergy 10 MG 1 tablet Orally Once a day Active PROCEDURES No Information RESULTS No Results REASON FOR VISIT consent for stent exchange. MEDICAL (GENERAL) HISTORY Type Description Date Medical History diabetic Medical History hx. of hyperlipidemia Medical History migraine headache Medical History hx. of alcohol abuse Medical History chronic breathing problems Medical History CALCIUM STOPPED PER [facility] NURS E DUE TO NEW DX. HYPO-PARATHYROIDISM----02/06/11 [...] Notes Treatment Notes Treatm ent Clinical Notes Jun, Ureteral stricture, right (ICD-10 - N13.5) She will need preop urine, blood work, chest x-ray, EKG, and medical clearance. Preop orders given to [employer] worker today, they will wait to do them until she hears from our office. Jun, Preop testing (ICD-10 - Z01.818) PLAN OF TREATMENT Treatment Notes Assessment Notes Clinical Notes Ureteral stricture, right She will need preop urine, blood work, chest x-ray, EKG, and medical clearance. Preop orders given to [employer] worker today, they will wait to do them until she hears from our office. Treatment Notes Test Name Order Date Electrocardiogram (EKG) 2021-07-21 PLZ CHEST 2 VIEW 2021-07-21 Future Test Test Name Order Date Basic Metabolic Profile (BMP) [id number] CBC - Complete Blood Count [id number] PT & APTT [id number] UA URINALYSIS [id number] URINE CULTURE [id number] Next Appt Details Provider Name:Mare Lopez, 2021-08-20 03:00:00 PM, [address] [facility], , [place], [address], Insurance Providers Payer Name Payer Address Payer Phone Insured Name Patient Relati onship to Insured Coverage Start Date Coverage End Date MEDICARE Part A and B [address] [facility] [phone] JOHANNA WILSON MEDICAID [employer] [address] [facility] [id number] JOHANNA WILSON
--- OUTSIDE RECORDS SUMMARY | 2021-09-19 12:38 | CCD ---
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 818 Active confirmed 161668260 Problem Urinary frequency R35.0 Active confirmed 16 8720467 Problem Chronic obstructive pulmonary disease, unspecified COPD ty pe J44.9 Active confirmed 99019392 Problem Kidney stones N20.0 Active confirmed 270730 07 Problem Pyelonephritis N12 Active confirmed 85061 000 ALLERGIES Allergen (clinical drug ingredient) Drug/Non Drug Allergy do cumented on EMR Reaction Allergy Type Onset Date Status novocaine Rash Non Drug Allergy Active ENCOUNTERS from 1955 to 2021-08-05 Encounter Location Date Provider Diagnosis [facility] Urology [address] [phone] [place] [address] 14 Jul, 2021 Lorna Garland IMMUNIZATIONS No Information SOCIAL HISTORY [...] breathing problems Medical History CALCIUM STOPPED PER [facility] NURS E DUE TO [...] day(s) Jul, Next Appt Details Provider Name:Mare Almodovarjac, 2021-08-20 03:00:00 PM, [address] [facility], , [place], [address], Provider Name:Lorna Garland, 2021-10-22 10:45:00 AM, [address], , [place], [address], Insurance Providers Payer Name Payer Address Payer Phone Insured Name Patient Relati onship to Insured Coverage Start Date Coverage End Date MEDICAID Panl [address] [facility] [id number] [phone] JOHANNA WILSON self MEDICARE Part A and B [address] [facility] [address] [phone] JOHANNA WILSON self
--- OUTSIDE RECORDS SUMMARY | 2021-09-19 12:38 | CCD | Continuity of Care Document ---
Author Author Lucy GEORGES LA Organization Unknown Address [address], [address] [place] [address] Phone [phone] Care Team Providers Care Sander And Polisher Name Role Phone Madyson Watters M.D. AUTM [phone] Martha Mejia MD AUTM [phone] Patrick Ram MD AUTM [phone] Problems Description No Information Available Social History [...] CPT Code Status Date Vaccine Lot # [id number] Given 12/26/2020 [facility] Covid-19 Sars-Cov-2, mRNA, LNP-S, PF, 100 mcg/ 0.5 mL 74528 Given 11/28/2020 [facility] Covid-19 Sars-Cov-2, mRNA, LNP-S, PF, 100 mcg/ [...] Available Procedures Date Code Description Status 07/30/2021 79423 Office/Outpatient Established Mo d MDM 30-39 Min Completed 05/06/2021 75620 Office/Outpatient New High MDM 6 0-74 Minutes Completed Medical Devices Description No Information Available Encounters Type Date Location Provider Dx Diagnosis Office Visit 07/30/2021 1:40p [facility] [place] D35.2 Benign neoplasm of pituitary gland Office Visit 05/06/2021 1:00p [facility] Patrick Ram MD D35.2 Benign neoplasm of pituitary gland Assessments Date Code Description Provider 07/30/2021 D35.2 Benign neoplasm of pituitary gla nd [facility] [place] 05/06/2021 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 Sent [facility] [place] Otoloaryngology [address] [place] [address], [address] [place] [id number] [phone]
--- OUTSIDE RECORDS SUMMARY | 2021-09-19 12:38 | CCD | Continuity of Care Document ---
Author Author Lucy GEORGES DC Organization Unknown Address [address], [address] [place] [address] Phone [phone] Care Team Providers Care Rental Representative Name Role Phone Madyson Watters M.D. AUTM [phone] Martha Mejia MD AUTM [phone] Patrick Ram MD AUTM [phone] Problems Description No Information Available Social History [...] CPT Code Status Date Vaccine Lot # [id number] Given 12/26/2020 [facility] Covid-19 Sars-Cov-2, mRNA, LNP-S, PF, 100 mcg/ 0.5 mL 50690 Given 11/28/2020 [facility] Covid-19 Sars-Cov-2, [...] Available Procedures Date Code Description Status 07/30/2021 51775 Office/Outpatient Established Mo d MDM 30-39 Min Completed 05/06/2021 11440 Office/Outpatient New High MDM 6 0-74 Minutes Completed Medical Devices Description No Information Available Encounters Type Date Location Provider Dx Diagnosis Office Visit 07/30/2021 1:40p [facility] Neurosurgery [place] D35.2 Benign neoplasm of pituitary gland Office Visit 05/06/2021 1:00p [facility] Patrick Ram MD D35.2 Benign neoplasm of pituitary gland Assessments Date Code Description Provider 07/30/2021 D35.2 Benign neoplasm of pituitary gla nd [facility] [place] 05/06/2021 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 Sent [facility] [place] Otoloaryngology [address] [place] [address], [address] [place] [id number] [phone]
--- OUTSIDE RECORDS SUMMARY | 2021-09-19 12:40 | CCD ---
Author Author [facility] Organization [facility] Address Unknown Phone Unavailable Care Team Providers Care Manager Hvac Name Role Phone Andrade Mejia MD Unavailable Unavailable Andrade Mejia MD Unavailable Unavailable Andrade Mejia MD Unavailable Unavailable Andrade Mejia MD Unavailable Unavailable Andrade Mejia MD Unavailable Unavailable Andrade Mejia MD Unavailable Unavailable Andrade Mejia MD Unavailable Unavailable Andrade Mejia MD Unavailable Unavailable Andrade Mejia MD Unavailable Unavailable Andrade Mejia MD Unavailable Unavailable Roberto, Andrade Thomas MD Unavailable Unavailable Roberto, Andrade Thomas MD Unavailable Unavailable Roberto, Andrade Thomas MD Unavailable Unavailable Roberto, Andrade Thomas MD Unavailable Unavailable Roberto, Andrade Thomas MD Unavailable Unavailable Roberto, Andrade Thomas MD Unavailable Unavailable Roberto, Andrade Thomas MD Unavailable Unavailable Roberto, Andrade Thomas MD Unavailable Unavailable Roberto, Andrade Thomas MD Unavailable Unavailable Roberto, Andrade Thomas MD Unavailable Unavailable Roberto, Andrade Thomas MD Unavailable Unavailable Roberto, Andrade Thomas MD Unavailable Unavailable Roberto, Andrade Thomas MD Unavailable Unavailable Roberto, Andrade Thomas MD Unavailable Unavailable Roberto, Andrade Thomas MD Unavailable Unavailable Roberto, Andrade Thomas MD Unavailable Unavailable Roberto, Andrade Thomas MD Unavailable Unavailable Roberto, Andrade Thomas MD Unavailable Unavailable Roberto, Andrade Thomas MD Unavailable Unavailable Roberto, Andrade Thomas MD Unavailable Unavailable Roberto, Andrade Thomas MD Unavailable Unavailable Roberto, Andrade Thomas MD Unavailable Unavailable Roberto, Andrade Thomas MD Unavailable Unavailable Roberto, Andrade Thomas MD Unavailable Unavailable Roberto, Andrade Thomas MD Unavailable Unavailable Roberto, Andrade Thomas MD Unavailable Unavailable Roberto, Andrade Thomas MD Unavailable Unavailable Roberto, Andrade Thomas MD Unavailable Unavailable Roberto, Andrade Thomas MD Unavailable Unavailable Orberto, Andrade Thomas MD Unavailable Unavailable Roberto, Andrade Thomas MD Unavailable Unavailable Roberto, Andrade Thomas MD Unavailable Unavailable Roberto, Andrade Thomas MD Unavailable Unavailable Roberto, Andrade Thomas MD Unavailable Unavailable Roberto, Andrade Thomas MD Unavailable Unavailable Roberto, Andrade Thomas MD Unavailable Unavailable Roberto, Andrade Thomas MD Unavailable Unavailable Roberto, Andrade Thomas MD Unavailable Unavailable Roberto, Andrade Thomas MD Unavailable Unavailable Roberto, Andrade Thomas MD Unavailable Unavailable Roberto, Andrade Thomas MD Unavailable Unavailable Roberto, Andrade Thomas MD Unavailable Unavailable Roberto, Andrade Thomas MD Unavailable Unavailable Roberto, Andrade Thomas MD Unavailable Unavailable Roberto, Andrade Thomas MD Unavailable Unavailable Roberto, Andrade Thomas MD Unavailable Unavailable Roberto, Andrade Thomas MD Unavailable Unavailable Roberto, Andrade Thomas MD Unavailable Unavailable Roberto, Andrade Thomas MD Unavailable Unavailable Roberto, Andrade Thomas MD Unavailable Unavailable Roberto, Andrade Thomas MD Unavailable Unavailable Roberto, Andrade Thomas MD Unavailable Unavailable Roberto, Andrade Thomas MD Unavailable Unavailable Roberto, Andrade Thomas MD Unavailable Unavailable Roberto, Andrade Thomas MD Unavailable Unavailable Roberto, Andrade Thomas MD Unavailable Unavailable Roberto, Andrade Thomas MD Unavailable Unavailable Roberto, Andrade Thomas MD Unavailable Unavailable Roberto, Andrade Thomas MD Unavailable Unavailable Roberto, Andrade Thomas MD Unavailable Unavailable Roberto, Andrade Thomas MD Unavailable Unavailable Roberto, Andrade Thomas MD Unavailable Unavailable Roberto, Andrade Thomas MD Unavailable Unavailable Roberto, Andrade Thomas MD Unavailable Unavailable Roberto, Andrade Thomas MD Unavailable Unavailable Roberto, Andrade Thomas MD Unavailable Unavailable Roberto, Andrade Thomas MD Unavailable Unavailable Gregg COBB DPM Unavailable Unavailable Gregg COBB DPM Unavailable Unavailable Gregg COBB DPM Unavailable Unavailable Gregg COBB DPM Unavailable Unavailable Gregg COBB DPM Unavailable Unavailable Gregg COBB DPM Unavailable Unavailable Gregg COBB DPM Unavailable Unavailable Gregg COBB DPM Unavailable Unavailable Gregg COBB DPM Unavailable Unavailable Gregg COBB DPM Unavailable Unavailable Gregg COBB DPM Unavailable Unavailable Gregg COBB DPM Unavailable Unavailable Gregg COBB DPM Unavailable Unavailable Gregg COBB DPM Unavailable Unavailable Gregg COBB DPM Unavailable Unavailable Gregg COBB DPM Unavailable Unavailable Gregg COBB DPM Unavailable Unavailable Gregg COBB DPM Unavailable Unavailable Gregg COBB DPM Unavailable Unavailable Gregg COBB DPM Unavailable Unavailable Gregg COBB DPM Unavailable Unavailable Gregg COBB DPM Unavailable Unavailable Gregg COBB DPM Unavailable Unavailable Gregg COBB DPM Unavailable Unavailable Gregg COBB DPM Unavailable Unavailable Gregg COBB DPM Unavailable Unavailable Gregg COBB DPM Unavailable Unavailable Gregg COBB DPM Unavailable Unavailable Gregg COBB DPM Unavailable Unavailable Gregg COBB DPM Unavailable Unavailable Gregg COBB DPM Unavailable Unavailable Art CRANE Unavailable Unavailable CRANE, J EMILIO PA Unavailable Unavailable CRANE, J EMILIO PA Unavailable Unavailable CRANE, J EMILIO PA Unavailable Unavailable CRANE, J EMILIO PA Unavailable Unavailable CRANE, J EMILIO PA Unavailable Unavailable CRANE, J EMILIO PA Unavailable Unavailable CRANE, J EMILIO PA Unavailable Unavailable CRANE, J EMILIO PA Unavailable Unavailable CRANE, J EMILIO PA Unavailable Unavailable CRANE, J EMILIO PA Unavailable Unavailable CRANE, J EMILIO PA Unavailable Unavailable CRANE, J EMILIO PA Unavailable Unavailable CRANE, J EMILIO PA Unavailable Unavailable CRANE, J EMILIO PA Unavailable Unavailable CRANE, J EMILIO PA Unavailable Unavailable CRANE, J EMILIO PA Unavailable Unavailable CRANE, J EMILIO PA Unavailable Unavailable CRANE, J EMILIO PA Unavailable Unavailable CRANE, J EMILIO PA Unavailable Unavailable CRANE, J EMILIO PA Unavailable Unavailable CRANE, J EMILIO PA Unavailable Unavailable CRANE, J EMILIO PA Unavailable Unavailable CRANE, J EMILIO PA Unavailable Unavailable CRANE, J EMILIO PA Unavailable Unavailable CRANE, J EMILIO PA Unavailable Unavailable CRANE, J EMILIO PA Unavailable Unavailable CRANE, J EMILIO PA Unavailable Unavailable CRANE, J EMILIO PA Unavailable Unavailable CRANE, J EMILIO PA Unavailable Unavailable CRANE, J EMILIO PA Unavailable Unavailable CRANE, J EMILIO PA Unavailable Unavailable CRANE, J EMILIO PA Unavailable Unavailable CRANE, J EMILIO PA Unavailable Unavailable CRANE, J EMILIO PA Unavailable Unavailable CRANE, J EMILIO PA Unavailable Unavailable CRANE, J EMILIO PA Unavailable Unavailable CRANE, J EMILIO PA Unavailable Unavailable CRANE, J EMILIO PA Unavailable Unavailable CRANE, J EMILIO PA Unavailable Unavailable CRANE, J EMILIO PA Unavailable Unavailable CRANE, J EMILIO PA Unavailable Unavailable CRANE, J EMILIO PA Unavailable Unavailable CRANE, J EMILIO PA Unavailable Unavailable CRANE, J EMILIO PA Unavailable Unavailable CRANE, J EMILIO PA Unavailable Unavailable CRANE, J EMILIO PA Unavailable Unavailable CRANE, J EMILIO PA Unavailable Unavailable CRANE, J EMILIO PA Unavailable Unavailable CRANE, J EMILIO PA Unavailable Unavailable CRANE, J EMILIO PA Unavailable Unavailable CRANE, J EMILIO PA Unavailable Unavailable CRANE, J EMILIO PA Unavailable Unavailable CRANE, J EMILIO PA Unavailable Unavailable Saw Oconnell MD Unavailable Unavailable Saw Oconnell MD Unavailable Unavailable Saw Oconnell MD Unavailable Unavailable Saw Oconnell MD Unavailable Unavailable Saw Oconnell MD Unavailable Unavailable Saw Oconnell MD Unavailable Unavailable Saw Oconnell MD Unavailable Unavailable Saw Oconnell MD Unavailable Unavailable Saw Oconnell MD Unavailable Unavailable Saw Oconnell MD Unavailable Unavailable Saw Oconnell MD Unavailable Unavailable Saw Oconnell MD Unavailable Unavailable Saw Oconnell MD Unavailable Unavailable Saw Oconnell MD Unavailable Unavailable Saw Oconnell MD Unavailable Unavailable Saw Oconnell MD Unavailable Unavailable Saw Oconnell MD Unavailable Unavailable Saw Oconnell MD Unavailable Unavailable Saw Oconnell MD Unavailable Unavailable Saw Oconnell MD Unavailable Unavailable Saw Oconnell MD Unavailable Unavailable Saw Oconnell MD Unavailable Unavailable Saw Oconnell MD Unavailable Unavailable Saw Oconnell MD Unavailable Unavailable Saw Oconnell MD Unavailable Unavailable Saw Oconnell MD Unavailable Unavailable Michael Mayo MD Unavailable Unavailable Michael Mayo MD Unavailable Unavailable Michael Mayo MD Unavailable Unavailable Michael Mayo MD Unavailable Unavailable Michael Mayo MD Unavailable Unavailable Michael Mayo MD Unavailable Unavailable Michael Mayo MD Unavailable Unavailable Michael Mayo MD Unavailable Unavailable Michael Mayo MD Unavailable Unavailable Michael Mayo MD Unavailable Unavailable Michael Mayo MD Unavailable Unavailable Michael Mayo MD Unavailable Unavailable Michael Mayo MD Unavailable Unavailable Michael Mayo MD Unavailable Unavailable Michael Mayo MD Unavailable Unavailable Michael Mayo MD Unavailable Unavailable Michael Mayo MD Unavailable Unavailable Michael Mayo MD Unavailable Unavailable Michael Mayo MD Unavailable Unavailable Michael Mayo MD Unavailable Unavailable Michael Mayo MD Unavailable Unavailable Michael Mayo MD Unavailable Unavailable Michael Mayo MD Unavailable Unavailable Michael Mayo MD Unavailable Unavailable Michael Mayo MD Unavailable Unavailable Michael Mayo MD Unavailable Unavailable Michael Mayo MD Unavailable Unavailable Michael Mayo MD Unavailable Unavailable Michael Mayo MD Unavailable Unavailable Michael Mayo MD Unavailable Unavailable Michael Mayo MD Unavailable Unavailable Michael Mayo MD Unavailable Unavailable Michael Mayo MD Unavailable Unavailable Michael Mayo MD Unavailable Unavailable Michael Mayo MD Unavailable Unavailable Michael Mayo MD Unavailable Unavailable Michael Mayo MD Unavailable Unavailable Michael Mayo MD Unavailable Unavailable Michael Mayo MD Unavailable Unavailable Michael Mayo MD Unavailable Unavailable Michael Mayo MD Unavailable Unavailable Michael Mayo MD Unavailable Unavailable Michael Mayo MD Unavailable Unavailable Michael Mayo MD Unavailable Unavailable Michael Mayo MD Unavailable Unavailable Michael Mayo MD Unavailable Unavailable Michael Mayo MD Unavailable Unavailable Michael Mayo MD Unavailable Unavailable Michael Mayo MD Unavailable Unavailable Michael Mayo MD Unavailable Unavailable Michael Mayo MD Unavailable Unavailable Michael Mayo MD Unavailable Unavailable Michael Mayo MD Unavailable Unavailable Michael Mayo MD Unavailable Unavailable Michael Mayo MD Unavailable Unavailable Michael Mayo MD Unavailable Unavailable Michael Mayo MD Unavailable Unavailable Michael Mayo MD Unavailable Unavailable Michael Mayo MD Unavailable Unavailable Michael Mayo MD Unavailable Unavailable Michael Mayo MD Unavailable Unavailable Michael Mayo MD Unavailable Unavailable Michael Mayo MD Unavailable Unavailable Michael Mayo MD Unavailable Unavailable Michael Mayo MD Unavailable Unavailable Michael Mayo MD Unavailable Unavailable Michael Mayo MD Unavailable Unavailable Michael Mayo MD Unavailable Unavailable Michael Mayo MD Unavailable Unavailable Michael Mayo MD Unavailable Unavailable Michael Mayo MD Unavailable Unavailable Michael Mayo MD Unavailable Unavailable Michael Mayo MD Unavailable Unavailable Michael Mayo MD Unavailable Unavailable Michael Mayo MD Unavailable Unavailable Michael Mayo MD Unavailable Unavailable Michael Mayo MD Unavailable Unavailable Michael Mayo MD Unavailable Unavailable Michael Mayo MD Unavailable Unavailable [place], Mariae Bowdoin DATA MANAGEMENT MANAGER Unavailable Unavailable [place], Mariae Rosanna DATA MANAGEMENT MANAGER Unavailable Unavailable [place], Mariae Rosanna DATA MANAGEMENT MANAGER Unavailable Unavailable Benedicto, Mariae Rosanna DATA MANAGEMENT MANAGER Unavailable Unavailable [place], Mariae Rosanna DATA MANAGEMENT MANAGER Unavailable Unavailable Benedicto, Mariae Rosanna DATA MANAGEMENT MANAGER Unavailable Unavailable Benedicto, Mariae Rosanna DATA MANAGEMENT MANAGER Unavailable Unavailable Benedicto, Mariae Bowdoin DATA MANAGEMENT MANAGER Unavailable Unavailable [place], Mariae Rosanna DATA MANAGEMENT MANAGER Unavailable Unavailable [place], Mariae Bowdoin DATA MANAGEMENT MANAGER Unavailable Unavailable Benedicto, Mariae Bowdoin DATA MANAGEMENT MANAGER Unavailable Unavailable [place], Mariae Bowdoin DATA MANAGEMENT MANAGER Unavailable Unavailable Benedicto, Mariae Bowdoin DATA MANAGEMENT MANAGER Unavailable Unavailable [place], Mariae Bowdoin DATA MANAGEMENT MANAGER Unavailable Unavailable [place], Mariae Rosanna DATA MANAGEMENT MANAGER Unavailable Unavailable [place], Mariae Bowdoin DATA MANAGEMENT MANAGER Unavailable Unavailable Benedicto, Mariae Bowdoin DATA MANAGEMENT MANAGER Unavailable Unavailable Aziza LOWERY MD Unavailable Unavailable Aziza LOWERY MD Unavailable Unavailable Aziza LOWERY MD Unavailable Unavailable Aziza LOWERY MD Unavailable Unavailable Aziza LOWERY MD Unavailable Unavailable Aziza LOWERY MD Unavailable Unavailable Aziza LOWERY MD Unavailable Unavailable Aziza LOWERY MD Unavailable Unavailable Aziza LOWERY MD Unavailable Unavailable Aziza LOWERY MD Unavailable Unavailable Aziza LOWERY MD Unavailable Unavailable Aziza LOWERY MD Unavailable Unavailable Aziza LOWERY MD Unavailable Unavailable Aziza LOWERY MD Unavailable Unavailable Aziza LOWERY MD Unavailable Unavailable Aziza LOWERY MD Unavailable Unavailable Aziza LOWERY MD Unavailable Unavailable Aziza LOWERY MD Unavailable Unavailable Aziza LOWERY MD Unavailable Unavailable Aziza LOWERY MD Unavailable Unavailable Aziza LOWERY MD Unavailable Unavailable Aziza LOWERY MD Unavailable Unavailable Aziza LOWERY MD Unavailable Unavailable Aziza LOWERY MD Unavailable Unavailable Aziza LOWERY MD Unavailable Unavailable Aziza LOWERY MD Unavailable Unavailable Aziza LOWERY MD Unavailable Unavailable Aziza LOWERY MD Unavailable Unavailable Aziza LOWERY MD Unavailable Unavailable Aziza LOWERY MD Unavailable Unavailable Aziza LOWERY MD Unavailable Unavailable Aziza LOWERY MD Unavailable Unavailable Aziza LOWERY MD Unavailable Unavailable CRISTI, 0000{ Unavailable Unavailable LETTIERE, A ROGER PA Unavailable Unavailable LETTIERE, A ROGER PA Unavailable Unavailable LETTIERE, A ROGER PA Unavailable Unavailable LETTIERE, A ROGER PA Unavailable Unavailable LETTIERE, A ROGER PA Unavailable Unavailable LETTIERE, A ROGER PA Unavailable Unavailable LETTIERE, A ROGER PA Unavailable Unavailable LETTIERE, A ROGER PA Unavailable Unavailable LETTIERE, A ROGER PA Unavailable Unavailable LETTIERE, A ROGER PA Unavailable Unavailable LETTIERE, A ROGER PA Unavailable Unavailable LETTIERE, A ROGER PA Unavailable Unavailable LETTIERE, A ROGER PA Unavailable Unavailable LETTIERE, A ROGER PA Unavailable Unavailable LETTIERE, A ROGER PA Unavailable Unavailable LETTIERE, A ROGER PA Unavailable Unavailable LETTIERE, A ROGER PA Unavailable Unavailable LETTIERE, A ROGER PA Unavailable Unavailable LETTIERE, A ROGER PA Unavailable Unavailable LETTIERE, A ROGER PA Unavailable Unavailable LETTIERE, A ROGER PA Unavailable Unavailable LETTIERE, A ROGER PA Unavailable Unavailable LETTIERE, A ROGER PA Unavailable Unavailable LETTIERE, A ROGER PA Unavailable Unavailable LETTIERE, A ROGER PA Unavailable Unavailable LETTIERE, A ROGER PA Unavailable Unavailable LETTIERE, A ROGER PA Unavailable Unavailable LETTIERE, A ROGER PA Unavailable Unavailable LETTIERE, A ROGER PA Unavailable Unavailable LETTIERE, A ROGER PA Unavailable Unavailable LETTIERE, A ROGER PA Unavailable Unavailable ZANDRA, B MICHELLE DATA MANAGEMENT MANAGER Unavailable Unavailable ZANDRA, B MICHELLE DATA MANAGEMENT MANAGER Unavailable Unavailable ZANDRA, B MICHELLE DATA MANAGEMENT MANAGER Unavailable Unavailable ZANDRA, B MICHELLE DATA MANAGEMENT MANAGER Unavailable Unavailable ZANDRA, B MICHELLE DATA MANAGEMENT MANAGER Unavailable Unavailable ZANDRA, B MICHELLE DATA MANAGEMENT MANAGER Unavailable Unavailable ZANDRA, B MICHELLE DATA MANAGEMENT MANAGER Unavailable Unavailable ZANDRA, B MICHELLE DATA MANAGEMENT MANAGER Unavailable Unavailable ZANDRA, B MICHELLE DATA MANAGEMENT MANAGER Unavailable Unavailable ZANDRA, B MICHELLE DATA MANAGEMENT MANAGER Unavailable Unavailable ZANDRA, B MICHELLE DATA MANAGEMENT MANAGER Unavailable Unavailable ZANDRA, B MICHELLE DATA MANAGEMENT MANAGER Unavailable Unavailable ZANDRA, B MICHELLE DATA MANAGEMENT MANAGER Unavailable Unavailable ZANDRA, B MICHELLE DATA MANAGEMENT MANAGER Unavailable Unavailable ZANDRA, B MICHELLE DATA MANAGEMENT MANAGER Unavailable Unavailable ZANDRA, B MICHELLE DATA MANAGEMENT MANAGER Unavailable Unavailable ZANDRA, B MICHELLE DATA MANAGEMENT MANAGER Unavailable Unavailable ZANDRA, B MICHELLE DATA MANAGEMENT MANAGER Unavailable Unavailable ZANDRA, B MICHELLE DATA MANAGEMENT MANAGER Unavailable Unavailable ZANDRA, B MICHELLE DATA MANAGEMENT MANAGER Unavailable Unavailable ZANDRA, B MICHELLE DATA MANAGEMENT MANAGER Unavailable Unavailable ZANDRA, B MICHELLE DATA MANAGEMENT MANAGER Unavailable Unavailable ZANDRA, B MICHELLE DATA MANAGEMENT MANAGER Unavailable Unavailable ZANDRA, B MICHELLE DATA MANAGEMENT MANAGER Unavailable Unavailable ZANDRA, B MICHELLE DATA MANAGEMENT MANAGER Unavailable Unavailable ZANDRA, B MICHELLE DATA MANAGEMENT MANAGER Unavailable Unavailable ZANDRA, B MICHELLE DATA MANAGEMENT MANAGER Unavailable Unavailable ZANDRA, B MICHELLE DATA MANAGEMENT MANAGER Unavailable Unavailable ZANDRA, B MICHELLE DATA MANAGEMENT MANAGER Unavailable Unavailable ZANDRA, B MICHELLE DATA MANAGEMENT MANAGER Unavailable Unavailable ZANDRA, B MICHELLE DATA MANAGEMENT MANAGER Unavailable Unavailable ZANDRA, B MICHELLE DATA MANAGEMENT MANAGER Unavailable Unavailable ZANDRA, B MICHELLE DATA MANAGEMENT MANAGER Unavailable Unavailable ZANDRA, B MICHELLE DATA MANAGEMENT MANAGER Unavailable Unavailable ZANDRA, B MICHELLE DATA MANAGEMENT MANAGER Unavailable Unavailable ZANDRA, B MICHELLE DATA MANAGEMENT MANAGER Unavailable Unavailable ZANDRA, B MICHELLE DATA MANAGEMENT MANAGER Unavailable Unavailable ZANDRA, B MICHELLE DATA MANAGEMENT MANAGER Unavailable Unavailable ZANDRA, B MICHELLE DATA MANAGEMENT MANAGER Unavailable Unavailable ZANDRA, B MICHELLE DATA MANAGEMENT MANAGER Unavailable Unavailable ZANDRA, B MICHELLE DATA MANAGEMENT MANAGER Unavailable Unavailable ZANDRA, B MICHELLE DATA MANAGEMENT MANAGER Unavailable Unavailable ZANDRA, B MICHELLE DATA MANAGEMENT MANAGER Unavailable Unavailable ZANDRA, B MICHELLE DATA MANAGEMENT MANAGER Unavailable Unavailable ZANDRA, B MICHELLE DATA MANAGEMENT MANAGER Unavailable Unavailable ZANDRA, B MICHELLE DATA MANAGEMENT MANAGER Unavailable Unavailable ZANDRA, B MICHELLE DATA MANAGEMENT MANAGER Unavailable Unavailable ZANDRA, B MICHELLE DATA MANAGEMENT MANAGER Unavailable Unavailable ZANDRA, B MICHELLE DATA MANAGEMENT MANAGER Unavailable Unavailable ZANDRA, B MICHELLE DATA MANAGEMENT MANAGER Unavailable Unavailable ZANDRA, B MICHELLE DATA MANAGEMENT MANAGER Unavailable Unavailable ZANDRA, B MICHELLE DATA MANAGEMENT MANAGER Unavailable Unavailable ZANDRA, B MICHELLE DATA MANAGEMENT MANAGER Unavailable Unavailable ZANDRA, B MICHELLE DATA MANAGEMENT MANAGER Unavailable Unavailable ZANDRA, B MICHELLE DATA MANAGEMENT MANAGER Unavailable Unavailable ZANDRA, B MICHELLE DATA MANAGEMENT MANAGER Unavailable Unavailable ZANDRA, B MICHELLE DATA MANAGEMENT MANAGER Unavailable Unavailable ZANDRA, B MICHELLE DATA MANAGEMENT MANAGER Unavailable Unavailable ZANDRA, B MICHELLE DATA MANAGEMENT MANAGER Unavailable Unavailable ZANDRA, B MICHELLE DATA MANAGEMENT MANAGER Unavailable Unavailable ZANDRA, B MICHELLE DATA MANAGEMENT MANAGER Unavailable Unavailable ZANDRA, B MICHELLE DATA MANAGEMENT MANAGER Unavailable Unavailable Chong, Shannon Shari PA Unavailable Unavailable Chong, Shannon Shari PA Unavailable Unavailable Chong, Shannon Shari PA Unavailable Unavailable Chong, Shannon Shari PA Unavailable Unavailable Chong, Shannon Shari PA Unavailable Unavailable Chong, Shannon Shari PA Unavailable Unavailable Hcong, Shannon Shari PA Unavailable Unavailable Chong, Shannon Shari PA Unavailable Unavailable Chong, Shannon Shair PA Unavailable Unavailable Chong, Shannon Shari PA Unavailable Unavailable CARISSA, MAQBOOL JOHN MD Unavailable Unavailable CARISSA, MAQBOOL JOHN MD Unavailable Unavailable CARISSA, MAQBOOL JOHN MD Unavailable Unavailable CARISSA, MAQBOOL JOHN MD Unavailable Unavailable CARISSA, MAQBOOL JOHN MD Unavailable Unavailable CARISSA, MAQBOOL JOHN MD Unavailable Unavailable CARISSA, MAQBOOL JOHN MD Unavailable Unavailable CARISSA, MAQBOOL JOHN MD Unavailable Unavailable CARISSA, MAQBOOL JOHN MD Unavailable Unavailable CARISSA, MAQBOOL JOHN MD Unavailable Unavailable CARISSA, MAQBOOL JOHN MD Unavailable Unavailable CARISSA, MAQBOOL JOHN MD Unavailable Unavailable CARISSA, MAQBOOL JOHN MD Unavailable Unavailable CARISSA, MAQBOOL JONH MD Unavailable Unavailable CARISSA, MAQBOOL JOHN MD Unavailable Unavailable CARISSA, MAQBOOL JOHN MD Unavailable Unavailable CARISSA, MAQBOOL JOHN MD Unavailable Unavailable CARISSA, MAQBOOL JOHN MD Unavailable Unavailable CARISSA, MAQBOOL JOHN MD Unavailable Unavailable CARISSA, MAQBOOL JOHN MD Unavailable Unavailable CARISSA, MAQBOOL JOHN MD Unavailable Unavailable CARISSA, MAQBOOL JOHN MD Unavailable Unavailable CARISSA, MAQBOOL JOHN MD Unavailable Unavailable CARISSA, MAQBOOL JOHN MD Unavailable Unavailable CARISSA, MAQBOOL JOHN MD Unavailable Unavailable CARISSA, MAQBOOL JOHN MD Unavailable Unavailable CARISSA, MAQBOOL JOHN MD Unavailable Unavailable CARISSA, MAQBOOL JOHN MD Unavailable Unavailable CARISSA, MAQBOOL JOHN MD Unavailable Unavailable CARISSA, MAQBOOL JOHN MD Unavailable Unavailable CARISSA, MAQBOOL JOHN MD Unavailable Unavailable CARISSA, MAQBOOL JOHN MD Unavailable Unavailable CARISSA, MAQBOOL JOHN MD Unavailable Unavailable CARISSA, MAQBOOL JOHN MD Unavailable Unavailable CARISSA, MAQBOOL JOHN MD Unavailable Unavailable CARISSA, MAQBOOL JOHN MD Unavailable Unavailable CARISSA, MAQBOOL JOHN MD Unavailable Unavailable CARISSA, MAQBOOL JOHN MD Unavailable Unavailable CARISSA, MAQBOOL JOHN MD Unavailable Unavailable CARISSA, MAQBOOL JOHN MD Unavailable Unavailable CARISSA, MAQBOOL JOHN MD Unavailable Unavailable CARISSA, MAQBOOL JOHN MD Unavailable Unavailable CARISSA, MAQBOOL JOHN MD Unavailable Unavailable CARISSA, MAQBOOL JOHN MD Unavailable Unavailable CARISSA, MAQBOOL JOHN MD Unavailable Unavailable CARISSA, MAQBOOL JOHN MD Unavailable Unavailable CARISSA, MAQBOOL JOHN MD Unavailable Unavailable CARISSA, MAQBOOL JOHN MD Unavailable Unavailable CARISSA, MAQBOOL JOHN MD Unavailable Unavailable CARISSA, MAQBOOL JOHN MD Unavailable Unavailable CARISSA, MAQBOOL JOHN MD Unavailable Unavailable CARISSA, MAQBOOL JOHN MD Unavailable Unavailable CARISSA, MAQBOOL JOHN MD Unavailable Unavailable CARISSA, MAQBOOL JOHN MD Unavailable Unavailable CARISSA, MAQBOOL JOHN MD Unavailable Unavailable CARISSA, MAQBOOL JOHN MD Unavailable Unavailable CARISSA, MAQBOOL JOHN MD Unavailable Unavailable CARISSA, MAQBOOL JOHN MD Unavailable Unavailable CARISSA, MAQBOOL JOHN MD Unavailable Unavailable CARISSA, MAQBOOL JOHN MD Unavailable Unavailable CARISSA, MAQBOOL JOHN MD Unavailable Unavailable CARISSA, MAQBOOL JOHN MD Unavailable Unavailable CARISSA, MAQBOOL JOHN MD Unavailable Unavailable CARISSA, MAQBOOL JOHN MD Unavailable Unavailable CARISSA, MAQBOOL JOHN MD Unavailable Unavailable CARISSA, MAQBOOL JOHN MD Unavailable Unavailable CARISSA, MAQBOOL JOHN MD Unavailable Unavailable CARISSA, MAQBOOL JOHN MD Unavailable Unavailable CARISSA, MAQBOOL JOHN MD Unavailable Unavailable CARISSA, MAQBOOL JOHN MD Unavailable Unavailable CARISSA, MAQBOOL JOHN MD Unavailable Unavailable CARISSA, MAQBOOL JOHN MD Unavailable Unavailable ACRISSA, MAQBOOL JOHN MD Unavailable Unavailable CARISSA, MAQBOOL JOHN MD Unavailable Unavailable CARISSA, MAQBOOL JOHN MD Unavailable Unavailable CARISSA, MAQBOOL JOHN MD Unavailable Unavailable CARISSA, MAQBOOL JOHN MD Unavailable Unavailable CARISSA, MAQBOOL JOHN MD Unavailable Unavailable CANUTE, W RADAMES MD Unavailable Unavailable CANUTE, W RADAMES MD Unavailable Unavailable CANUTE, W RADAMES MD Unavailable Unavailable CANUTE, W RADAMES MD Unavailable Unavailable CANUTE, W RADAMES MD Unavailable Unavailable CANUTE, W RADAMES MD Unavailable Unavailable CANUTE, W RADAMES MD Unavailable Unavailable CANUTE, W RADAMES MD Unavailable Unavailable CANUTE, W RADAMES MD Unavailable Unavailable CANUTE, W RADAMES MD Unavailable Unavailable CANUTE, W RADAMES MD Unavailable Unavailable CANUTE, W RADAMES MD Unavailable Unavailable CANUTE, W RADAMES MD Unavailable Unavailable CANUTE, W RADAMES MD Unavailable Unavailable CANUTE, W RADAMES MD Unavailable Unavailable CANUTE, W RADAMES MD Unavailable Unavailable CANUTE, W RADAMES MD Unavailable Unavailable CANUTE, W RADAMES MD Unavailable Unavailable CANUTE, W RADAMES MD Unavailable Unavailable CANUTE, W RADAMES MD Unavailable Unavailable CANUTE, W RADAMES MD Unavailable Unavailable CANUTE, W RADAMES MD Unavailable Unavailable CANUTE, W RADAMES MD Unavailable Unavailable CANUTE, W RADAMES MD Unavailable Unavailable CANUTE, W RADAMES MD Unavailable Unavailable CANUTE, W RADAMES MD Unavailable Unavailable CANUTE, W RADAMES MD Unavailable Unavailable CANUTE, W RADAMES MD Unavailable Unavailable CANUTE, W RADAMES MD Unavailable Unavailable CANUTE, W RADAMES MD Unavailable Unavailable CANUTE, W RADAMES MD Unavailable Unavailable CANUTE, W RADAMES MD Unavailable Unavailable CANUTE, W RADAMES MD Unavailable Unavailable CANUTE, W RADAMES MD Unavailable Unavailable CANUTE, W RADAMES MD Unavailable Unavailable CANUTE, W RADAMES MD Unavailable Unavailable CANUTE, W RADAMES MD Unavailable Unavailable CANUTE, W RADAMES MD Unavailable Unavailable CANUTE, W RADAMES MD Unavailable Unavailable CANUTE, W RADAMES MD Unavailable Unavailable CANUTE, W RADAMES MD Unavailable Unavailable CANUTE, W RADAMES MD Unavailable Unavailable CANUTE, W RADAMES MD Unavailable Unavailable CANUTE, W RADAMES MD Unavailable Unavailable CANUTE, W RADAMES MD Unavailable Unavailable CANUTE, W RADAMES MD Unavailable Unavailable CANUTE, W RADAMES MD Unavailable Unavailable CANUTE, W RADAMES MD Unavailable Unavailable CANUTE, W RADAMES MD Unavailable Unavailable CANUTE, W RADAMES MD Unavailable Unavailable CANUTE, W RADAMES MD Unavailable Unavailable CANUTE, W RADAMES MD Unavailable Unavailable CANUTE, W RADAMES MD Unavailable Unavailable CANUTE, W RADAMES MD Unavailable Unavailable CANUTE, W RADAMES MD Unavailable Unavailable CANUTE, W RADAMES MD Unavailable Unavailable CANUTE, W RADAMES MD Unavailable Unavailable CANUTE, W RADAMES MD Unavailable Unavailable CANUTE, W RADAMES MD Unavailable Unavailable CANUTE, W RADAMES MD Unavailable Unavailable CANUTE, W RADAMES MD Unavailable Unavailable CANUTE, W RADAMES MD Unavailable Unavailable CANUTE, W RADAMES MD Unavailable Unavailable CANUTE, W RADAMES MD Unavailable Unavailable CANUTE, W RADAMES MD Unavailable Unavailable CANUTE, W RADAMES MD Unavailable Unavailable CANUTE, W RADAMES MD Unavailable Unavailable CANUTE, W RADAMES MD Unavailable Unavailable CANUTE, W RADAMES MD Unavailable Unavailable CANUTE, W RADAMES MD Unavailable Unavailable CANUTE, W RADAMES MD Unavailable Unavailable CANUTE, W RADAMES MD Unavailable Unavailable CANUTE, W RADAMES MD Unavailable Unavailable CANUTE, W RADAMES MD Unavailable Unavailable CANUTE, W RADAMES MD Unavailable Unavailable CANUTE, W RADAMES MD Unavailable Unavailable CANUTE, W RADAMES MD Unavailable Unavailable CANUTE, W RADAMES MD Unavailable Unavailable CANUTE, W RADAMES MD Unavailable Unavailable CANUTE, W RADAMES MD Unavailable Unavailable CANUTE, W RADAMES MD Unavailable Unavailable CANUTE, W RADAMES MD Unavailable Unavailable CANUTE, W RADAMES MD Unavailable Unavailable CANUTE, W RADAMES MD Unavailable Unavailable CANUTE, W RADAMES MD Unavailable Unavailable CANUTE, W RADAMES MD Unavailable Unavailable CANUTE, W RADAMES MD Unavailable Unavailable CANUTE, W RADAMES MD Unavailable Unavailable CANUTE, W RADAMES MD Unavailable Unavailable CANUTE, W RADAMES MD Unavailable Unavailable Kevin FRANKS MD Unavailable Unavailable CANKevin WOLF MD Unavailable Unavailable Kevin FRANKS MD Unavailable Unavailable CANKevin WOLF MD Unavailable Unavailable CANKevin WOLF MD Unavailable Unavailable CANKevin WOLF MD Unavailable Unavailable Kevin FRANKS MD Unavailable Unavailable Kevin FRANKS MD Unavailable Unavailable CANKeivn WOLF MD Unavailable Unavailable CANKevin WOLF MD Unavailable Unavailable CANKevin WOLF MD Unavailable Unavailable CANKevin WOLF MD Unavailable Unavailable Kevin FRANKS MD Unavailable Unavailable FishScot MD Unavailable Unavailable FishScot MD Unavailable Unavailable Fish, Scot Coughlin MD Unavailable Unavailable Fish, Scot Coughlin MD Unavailable Unavailable Fish, Scot Coughlin MD Unavailable Unavailable Fish, Scot Coughlin MD Unavailable Unavailable Fish, Scot Coughlin MD Unavailable Unavailable Fish, Scot Coughlin MD Unavailable Unavailable Fish, Scot Coughlin MD Unavailable Unavailable Fish, Scot Coughlin MD Unavailable Unavailable Fish, Scot Coughlin MD Unavailable Unavailable Fish, Scot Coughlin MD Unavailable Unavailable Fish, Scot Coughlin MD Unavailable Unavailable Fish, Scot Coughlin MD Unavailable Unavailable Fish, Scot Coughlin MD Unavailable Unavailable Fish, Scot Coughlin MD Unavailable Unavailable FishScot MD Unavailable Unavailable FishScot MD Unavailable Unavailable FishScot MD Unavailable Unavailable Fish, Scot Coughlin MD Unavailable Unavailable Fish, Scot Coughlin MD Unavailable Unavailable Fish, Scot Coughlin MD Unavailable Unavailable Fish, Scot Coughlin MD Unavailable Unavailable FishScot MD Unavailable Unavailable Scot Watters MD Unavailable Unavailable Scot Watters MD Unavailable Unavailable Scot Watters MD Unavailable Unavailable FishScot MD Unavailable Unavailable FishScot MD Unavailable Unavailable FishScot MD Unavailable Unavailable FishScot MD Unavailable Unavailable FishScot MD Unavailable Unavailable FishScot MD Unavailable Unavailable FishScot MD Unavailable Unavailable Scot Watters MD Unavailable Unavailable Scot Watters MD Unavailable Unavailable Scot Watters MD Unavailable Unavailable Scot Watters MD Unavailable Unavailable FishScot MD Unavailable Unavailable FishScot MD Unavailable Unavailable Scot Watters MD Unavailable Unavailable Scot Watters MD Unavailable Unavailable Scot Watters MD Unavailable Unavailable Scot Watters MD Unavailable Unavailable Fish, Scot Coughlin MD Unavailable Unavailable Fish, Scot Coughlin MD Unavailable Unavailable Fish, B Madyson MD Unavailable Unavailable Fish, B Madyson MD Unavailable Unavailable Fish, B Madyson MD Unavailable Unavailable Fish, B Madyson MD Unavailable Unavailable Fish, B Madyson MD Unavailable Unavailable Fish, B Madyson MD Unavailable Unavailable Fish, B Madyson MD Unavailable Unavailable Fish, B Madyson MD Unavailable Unavailable Fish, B Madyson MD Unavailable Unavailable Fish, B Madyson MD Unavailable Unavailable Fish, B Madyson MD Unavailable Unavailable Fish, B Madyson MD Unavailable Unavailable Fish, B Madyson MD Unavailable Unavailable Fish, B Madyson MD Unavailable Unavailable Fish, B Madyson MD Unavailable Unavailable Fish, B Madyson MD Unavailable Unavailable Fish, B Madyson MD Unavailable Unavailable Fish, B Madyson MD Unavailable Unavailable Fish, B Madyson MD Unavailable Unavailable CANUTE, W RADAMES MD Unavailable Unavailable CANUTE, W RADAMES MD Unavailable Unavailable CANUTE, W RADAMES MD Unavailable Unavailable CANUTE, W RADAMES MD Unavailable Unavailable CANUTE, W RADAMES MD Unavailable Unavailable CANUTE, W RADAMES MD Unavailable Unavailable CANUTE, W RADAMES MD Unavailable Unavailable CANUTE, W RADAMES MD Unavailable Unavailable CANUTE, W RADAMES MD Unavailable Unavailable CANUTE, W RADAMES MD Unavailable Unavailable CANUTE, W RADAMES MD Unavailable Unavailable CANUTE, W RADAMES MD Unavailable Unavailable CANUTE, W RADAMES MD Unavailable Unavailable CANUTE, W RADAMES MD Unavailable Unavailable CANUTE, W RADAMES MD Unavailable Unavailable CANUTE, W RADAMES MD Unavailable Unavailable CANUTE, W RADAMES MD Unavailable Unavailable CANUTE, W RADAMES MD Unavailable Unavailable CANUTE, W RADAMES MD Unavailable Unavailable CANUTE, W RADAMES MD Unavailable Unavailable CANUTE, W RADAMES MD Unavailable Unavailable CANUTE, W RADAMES MD Unavailable Unavailable CANUTE, W RADAMES MD Unavailable Unavailable CANUTE, W RADAMES MD Unavailable Unavailable CANUTE, W RADAMES MD Unavailable Unavailable CANUTE, W RADAMES MD Unavailable Unavailable CANUTE, W RADAMES MD Unavailable Unavailable CANUTE, W RADAMES MD Unavailable Unavailable CANUTE, W RADAMES MD Unavailable Unavailable CANUTE, W RADAMES MD Unavailable Unavailable CANUTE, W RADAMES MD Unavailable Unavailable CANUTE, W RADAMES MD Unavailable Unavailable CANUTE, W RADAMES MD Unavailable Unavailable CANUTE, W RADAMES MD Unavailable Unavailable CANUTE, W RADAMES MD Unavailable Unavailable CANUTE, W RADAMES MD Unavailable Unavailable CANUTE, W RADAMES MD Unavailable Unavailable CANUTE, W RADAMES MD Unavailable Unavailable CANUTE, W RADAMES MD Unavailable Unavailable CANUTE, W RADAMES MD Unavailable Unavailable CANUTE, W RADAMES MD Unavailable Unavailable CANUTE, W RADAMES MD Unavailable Unavailable CANUTE, W RADAMES MD Unavailable Unavailable CANUTE, W RADAMES MD Unavailable Unavailable CANUTE, W RADAMES MD Unavailable Unavailable CANUTE, W RADAMES MD Unavailable Unavailable CANUTE, W RADAMES MD Unavailable Unavailable CANUTE, W RADAMES MD Unavailable Unavailable CANUTE, W RADAMES MD Unavailable Unavailable CANUTE, W RADAMES MD Unavailable Unavailable CANUTE, W RADAMES MD Unavailable Unavailable CANUTE, W RADAMES MD Unavailable Unavailable CANUTE, W RADAMES MD Unavailable Unavailable CANUTE, W RADAMES MD Unavailable Unavailable CANUTE, W RADAMES MD Unavailable Unavailable CANUTE, W RADAMES MD Unavailable Unavailable CANUTE, W RADAMES MD Unavailable Unavailable CANUTE, W RADAMES MD Unavailable Unavailable CANUTE, W RADAMES MD Unavailable Unavailable CANUTE, W RADAMES MD Unavailable Unavailable CANUTE, W RADAMES MD Unavailable Unavailable CANUTE, W RADAMES MD Unavailable Unavailable CANUTE, W RADAMES MD Unavailable Unavailable CANUTE, W RADAMES MD Unavailable Unavailable CANUTE, W RADAMES MD Unavailable Unavailable CANUTE, W RADAMES MD Unavailable Unavailable CANUTE, W RADAMES MD Unavailable Unavailable CANUTE, W RADAMES MD Unavailable Unavailable CANUTE, W RADAMES MD Unavailable Unavailable CANUTE, W RADAMES MD Unavailable Unavailable CANUTE, W RADAMES MD Unavailable Unavailable CANUTE, W RADAMES MD Unavailable Unavailable CANUTE, W RADAMES MD Unavailable Unavailable CANUTE, W RADAMES MD Unavailable Unavailable CANUTE, W RADAMES MD Unavailable Unavailable CANUTE, W RADAMES MD Unavailable Unavailable CANUTE, W RADAMES MD Unavailable Unavailable CANUTE, W RADAMES MD Unavailable Unavailable CANUTE, W RADAMES MD Unavailable Unavailable CANUTE, W RADAMES MD Unavailable Unavailable CANUTE, W RADAMES MD Unavailable Unavailable CANUTE, W RADAMES MD Unavailable Unavailable CANUTE, W RADAMES MD Unavailable Unavailable CANUTE, W RADAMES MD Unavailable Unavailable CANUTE, W RADAMES MD Unavailable Unavailable CANUTE, W RADAMES MD Unavailable Unavailable CANUTE, W RADAMES MD Unavailable Unavailable CANUTE, W RADAMES MD Unavailable Unavailable CANUTE, W RADAMES MD Unavailable Unavailable CANUTE, W RADAMES MD Unavailable Unavailable CANUTE, W RADAMES MD Unavailable Unavailable CANUTE, W RADAMES MD Unavailable Unavailable CANUTE, W RADAMES MD Unavailable Unavailable CANUTE, W RADAMES MD Unavailable Unavailable CANUTE, W RADAMES TEMPLETON Unavailable Unavailable CANKevin WOLF MD Unavailable Unavailable CANKevin WOLF MD Unavailable Unavailable CANKevin WOLF MD Unavailable Unavailable CANKevin WOLF MD Unavailable Unavailable CANUTE, Kevin CRUM MD Unavailable Unavailable CANUTE, Kevin CRUM MD Unavailable Unavailable CANUTE, Kevin CRUM MD Unavailable Unavailable CANUTEKevin MD Unavailable Unavailable STULB, R WALTER PA Unavailable Unavailable STULB, R WALTER PA Unavailable Unavailable STULB, R WALTER PA Unavailable Unavailable STULB, R WALTER PA Unavailable Unavailable STULB, R WALTER PA Unavailable Unavailable STULB, R WALTER PA Unavailable Unavailable STULB, R WALTER PA Unavailable Unavailable STULB, R WALTER PA Unavailable Unavailable STULB, R WALTER PA Unavailable Unavailable STULB, R WALTER PA Unavailable Unavailable STULB, R WALTER PA Unavailable Unavailable STULB, R WALTER PA Unavailable Unavailable STULB, R WALTER PA Unavailable Unavailable STULB, R WALTER PA Unavailable Unavailable STULB, R WALTER PA Unavailable Unavailable STULB, R WALTER PA Unavailable Unavailable STULB, R WALTER PA Unavailable Unavailable STULB, R WALTER PA Unavailable Unavailable STULB, R WALTER PA Unavailable Unavailable STULB, R WALTER PA Unavailable Unavailable STULB, R WALTER PA Unavailable Unavailable STULB, R WALTER PA Unavailable Unavailable STULB, R WALTER PA Unavailable Unavailable STULB, R WALTER PA Unavailable Unavailable STULB, R WALTER PA Unavailable Unavailable STULB, R WALTER PA Unavailable Unavailable STULB, R WALTER PA Unavailable Unavailable STULB, R WALTER PA Unavailable Unavailable STULB, R WALTER PA Unavailable Unavailable STULB, R WALTER PA Unavailable Unavailable STULB, R WALTER PA Unavailable Unavailable STULB, R WALTER PA Unavailable Unavailable STULB, R WALTER PA Unavailable Unavailable STULB, R WALTER PA Unavailable Unavailable STULB, R WALTER PA Unavailable Unavailable STULB, R WALTER PA Unavailable Unavailable STULB, R WALTER PA Unavailable Unavailable STULB, R WALTER PA Unavailable Unavailable STULB, R WALTER PA Unavailable Unavailable STULB, R WALTER PA Unavailable Unavailable STULB, R WALTER PA Unavailable Unavailable STULB, R WALTER PA Unavailable Unavailable STULB, R WALTER PA Unavailable Unavailable STULB, R WALTER PA Unavailable Unavailable STULB, R WALTER PA Unavailable Unavailable STULB, R WALTER PA Unavailable Unavailable Andrade Mejia MD Unavailable Unavailable Andrade Mejia MD Unavailable Unavailable Roberto, Andrade Thomas MD Unavailable Unavailable Roberto, Andrade Thomas MD Unavailable Unavailable Roberto, Andrade Thomas MD Unavailable Unavailable Roberto, Andrade Thomas MD Unavailable Unavailable Roberto, Andrade Thomas MD Unavailable Unavailable Roberto, Andrade Thomas MD Unavailable Unavailable Roberto, Andrade Thomas MD Unavailable Unavailable Roberto, Andrade Thomas MD Unavailable Unavailable Roberto, Andrade Thomas MD Unavailable Unavailable Roberto, Andrade Thomas MD Unavailable Unavailable Roberto, Andrade Thomas MD Unavailable Unavailable Roberto, Andrade Thomas MD Unavailable Unavailable Roberto, Andrade Thomas MD Unavailable Unavailable Roberto, Andrade Thomas MD Unavailable Unavailable Roberto, Andrade Thomas MD Unavailable Unavailable Roberto, Andrade Thomas MD Unavailable Unavailable Roberto, Andrade Thomas MD Unavailable Unavailable Roberto, Andrade Thomas MD Unavailable Unavailable Roberto, Andrade Thomas MD Unavailable Unavailable Roberto, Andrade Thomas MD Unavailable Unavailable Roberto, Andrade Thomas MD Unavailable Unavailable Roberto, Adnrade Thomas MD Unavailable Unavailable Roberto, Andrade Thomas MD Unavailable Unavailable Roberto, Andrade Thomas MD Unavailable Unavailable Roberto, Andrade Thomas MD Unavailable Unavailable Roberto, Andrade Thomas MD Unavailable Unavailable Roberto, Andrade Thomas MD Unavailable Unavailable Roberto, Andrade Thomas MD Unavailable Unavailable Roberto, Andrade Thomas MD Unavailable Unavailable Roberto, Andrade Thomas MD Unavailable Unavailable Roberto, Andrade Thomas MD Unavailable Unavailable Roberto, Andrade Thomas MD Unavailable Unavailable Roberto, Andrade Thomas MD Unavailable Unavailable Roberto, Andrade Thomas MD Unavailable Unavailable Roberto, Andrade Thomas MD Unavailable Unavailable Roberto, Andrade Thomas MD Unavailable Unavailable Roberto, Andrade Thomas MD Unavailable Unavailable Roberto, Andrade Thomas MD Unavailable Unavailable Roberto, Andrade Thomas MD Unavailable Unavailable Roberto, Andrade Thomas MD Unavailable Unavailable Roberto, Andrade Thomas MD Unavailable Unavailable Roberto, Andrade Thomas MD Unavailable Unavailable Roberto, Andrade Thomas MD Unavailable Unavailable Roberto, Andrade Thomas MD Unavailable Unavailable Roberto, Andrade Thomas MD Unavailable Unavailable Roberto, Andrade Thomas MD Unavailable Unavailable Roberto, Andrade Thomas MD Unavailable Unavailable Roberto, Andrade Thomas MD Unavailable Unavailable Roberto, Andrade Thomas MD Unavailable Unavailable Roberto, C Martha MD Unavailable Unavailable Roberot, C Martha MD Unavailable Unavailable Roberto, C Martha MD Unavailable Unavailable Roberto, C Martha MD Unavailable Unavailable Roberto, C Martha MD Unavailable Unavailable Roberto, C Martha MD Unavailable Unavailable Roberto, C Martha MD Unavailable Unavailable Roberto, C Martha MD Unavailable Unavailable Roberto, C Martha MD Unavailable Unavailable Roberto, C Martha MD Unavailable Unavailable Roberto, C Martha MD Unavailable Unavailable Roberto, C Martha MD Unavailable Unavailable Roberto, C Martha MD Unavailable Unavailable Roberto, C Martha MD Unavailable Unavailable Roberto, C Martha MD Unavailable Unavailable Roberto, C Martha MD Unavailable Unavailable Roberto, C Martha MD Unavailable Unavailable Roberto, C Martha MD Unavailable Unavailable Roberto, C Martha MD Unavailable Unavailable Roberto, C Martha MD Unavailable Unavailable Roberto, C Martha MD Unavailable Unavailable Roberto, C Martha MD Unavailable Unavailable Roberto, C Martha MD Unavailable Unavailable Roberto, C Martha MD Unavailable Unavailable Roberto, C Martha MD Unavailable Unavailable Roberto, C Martha MD Unavailable Unavailable Re-disclosure Warning The records that you are about to access may contain information from federally-assisted alcohol or drug abuse programs. If such information is present, then the following federally mandated warning applies: This information has been disclosed to you from records protected by federal confidentiality rules (42 CFR part 2). The federal rules prohibit you from making any further disclosure of this information unless further disclosure is expressly permitted by the written consent of the person to whom it pertains or as otherwise permitted by 42 CFR part 2. A general authorization for the release of medical or other information is NOT sufficient for this purpose. The Federal rules restrict any use of the information to criminally investigate or prosecute any alcohol or drug abuse patient.The records that you are about to access may contain highly sensitive health information, the redisclosure of which is protected by Article 27-F of the [facility] Public Health law. If you continue you may have access to information: Regarding HIV / AIDS; Provided by facilities licensed or operated by the [facility] Office of Mental Health; or Provided by the [facility] Office for People With Developmental Disabilities. If such information is present, then the following [facility] mandated warning applies: This information has been disclosed to you from confidential records which are protected by state law. State law prohibits you from making any further disclosure of this information without the specific written consent of the person to whom it pertains, or as otherwise permitted by law. Any unauthorized further disclosure in violation of state law may result in a fine or halfway sentence or both. A general authorization for the release of medical or other information is NOT sufficient authorization for further disc losure. Allergies and Adverse Reactions Type Description Substance Reaction Status Data Source(s ) Propensity to adverse reactions NOVOCAIN NOVOCAIN [facility] Family History Family Member Name Family Member Gender Family Member Status Date o f Status Description Data Source(s) Unknown Female Problem MEDENT ([facility]) Unknown Unknown Problem MED[facility] ([facility] ) Unknown Unknown Problem [facility] ([facility] Unknown Unknown Problem MEDENT ([facility] Encounters Encounter Providers Location Date Indications Data Source(s ) Unknown [address] [facility] [address] [id number] 09/17/2021 12:00:00 AM EDT eCW1 ([facility]) Unknown [address] [facility] [address] [id number] 08/26/2021 12:00:00 AM EDT eCW1 ([facility]) Unknown [address] [facility] [address] [id number] 08/22/2021 12:00:00 AM EDT eCW1 ([facility]) Outpatient Attender: MICHELLE DE PAZ NP Physical Therapy 10:30:00 AM EDT MEDENT ([facility]) Unknown [address] [facility] [address] [id number] 08/18/2021 12:00:00 AM EDT eCW1 ([facility]) Unknown [address] [facility] [address] [id number] 08/05/2021 12:00:00 AM EDT eCW1 ([facility]) [facility] [place] [facility] 03:30:00 PM EDT MEDENT ([facility] Outpatient Attender: WALTER FINNEY [facility] Internal Med at [facility] 07/30/2021 01:40:00 PM EDT [facility] ([facility] Outpatient Attender: EMILIO CRANE PAConsultant: Martha graves MD 07/29/2021 03:43:00 PM EDT - 07/29/2021 03:43:00 PM EDT [facility] Outpatient Attender: EMILIO FINNEY [facility] 07/29 03:40:00 PM EDT MEDENT ([facility]) Outpatient<td ID="encounterTypeDescripti onID0">SURGICAL CLEARANCE</td><td>Rosanna Nimisha Diane NP</td><td>[facility]</td><td>07/25/2021</td><td>10:18AM</td><td>11:22AM</td><td><content ID="encounterDiagnosisID0-0">Chronic Kidney Disease (Nkf Classification)</content>, <content ID="encounterDiagnosisID0-1">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</content>, <content ID="encounterDiagnosisID0-2">Ureteral Stricture</content>, <content ID="encounterDiagnosisID0-3">Pituitary Macroadenoma</content></td> Attender: Rosanna Diane NP [facility], 07/25/2021 10:18:00 AM EDT - 07/25/2021 11:22:00 AM EDT Ureteral StrictureInfection and Inflamma tory Reaction Due To Ureteral StentChronic Kidney Disease (Nkf Classification)Ureteral Stricture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Chronic Kidney Disease (Nkf Classification)Pituitary MacroadenomaPituitary Macroadenoma KADI ([facility]) Ureteral Stricture 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 Chronic Kidney Disease (Nkf Classificati on) Ureteral Stricture 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 Chronic Kidney Disease (Nkf Classificati on) Pituitary Macroadenoma Pituitary Macroadenoma Outpatient Attender: MALENA Gaitan/Gilson/Faheem hopkins/Gia 07/21/2021 10:30:00 AM EDT MEDENT ([facility] Outpatient [address] [facility] [address] [place] [id number] 07/21/2021 12:00:00 AM EDT eCW1 ([facility]) Outpatient Attender: 0000{ [place] 06/19/2021 05:57:00 PM E DT [facility] Outpatient Attender: RADAMES FRANKS MD 06/19/2021 05 :57:00 PM EDT BENIGN NEOPLASM OF PITUITARY GLAND [facility] BENIGN NEOPLASM OF PITUITARY GLAND Outpatient<td ID="encounterTypeDescripti onID2">STANDARD OV</td><td>Martha Mejia MD</td><td>[facility]</td><td>06/12/2021</td><td>3:24PM</td><td>4:22PM</td><td><content ID="encounterDiagnosisID2-0">Encopresis</content>, <content ID="encounterDiagnosisID2-1">Acromegaly</content>, <content ID="encounterDiagnosisID2-2">Pituitary Macroadenoma</content>, <content ID="encounterDiagnosisID2-3">Chronic Kidney Disease Stage 1</content>, <content ID="encounterDiagnosisID2-4">Cardiomegaly</content>, <content ID="encounterDiagnosisID2-5">Mitral Regurgitation</content>, <content ID="encounterDiagnosisID2-6">Tricuspid Regurgitation</content>, <content ID="encounterDiagnosisID2-7">Iron Deficiency Anemia</content>, <content ID="encounterDiagnosisID2-8">Common Migraine Without Aura Without Intractable Migraine</content></td> Attender: Martha Mejia MD [facility] 06/12/2021 03:24:00 PM EDT - 06/12/2021 04:22:00 PM ED T Common Migraine Without Aura Without Intractable MigraineIron Deficiency AnemiaTricuspid RegurgitationMitral RegurgitationCardiomegalyChronic Kidney Disease Stage 1AcromegalyEncopresisCommon Migraine Without Aura Without Intractable MigraineIron Deficiency AnemiaTricuspid RegurgitationMitral RegurgitationCardiomegalyChronic Kidney Disease Stage 1AcromegalyEncopresisCommon Migraine Without Aura Without Intractable MigraineIron Deficiency AnemiaTricuspid RegurgitationMitral RegurgitationCardiomegalyChronic Kidney Disease Stage 1AcromegalyEncopresisPituitary MacroadenomaPituitary MacroadenomaPituitary Macroadenoma [place] ([facility]) Common Migraine Without Aura Without Int ractable Migraine Iron Deficiency Anemia Tricuspid Regurgitation Mitral Regurgitation Cardiomegaly Chronic Kidney Disease Stage 1 Acromegaly Encopresis Common Migraine Without Aura Without Int ractable Migraine Iron Deficiency Anemia Tricuspid Regurgitation Mitral Regurgitation Cardiomegaly Chronic Kidney Disease Stage 1 Acromegaly Encopresis Common Migraine Without Aura Without Int ractable Migraine Iron Deficiency Anemia Tricuspid Regurgitation Mitral Regurgitation Cardiomegaly Chronic Kidney Disease Stage 1 Acromegaly Encopresis 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 Outpatient<td ID="encounterTypeDescripti onID1">CLINICAL USE ONLY</td><td>Rosanna Diane NP</td><td>Family Medicine [facility]</td><td>07/14/2021</td><td>06/12/2021 2:42PM</td><td>06/12/2021 11:59PM</td><td></td> Attender: Rosanna Diane NP Family Medicine [facility] sharon 06/12/2021 02:42:00 PM EDT - 06/12/2021 11:59:00 PM EDT [place] ([facility]) Office Visit Attender: Layla Mayo MD Main office - [facility] 05/20/2021 02:45:00 PM EDT [facility] ([facility] ) Outpatient Attender: RADAMES FRANKS MD [facility] Internal Med at [place] 05/06/2021 01:00:00 PM EDT [facility] ([facility] Unknown [address] [facility] [address] 05/05/2021 12:00:00 AM EDT eCW1 ([facility]) <td ID="encounterTypeDescriptionID3">EXT ENDED VISIT</td><td>Rosanna Diane DESTIN</td><td>[facility]</td><td>04/10/2021</td><td>2:52PM</td><td>3:29PM</td><td><content ID="encounterDiagnosisID3-0">Depression</content>, <content ID="encounterDiagnosisID3-1">Hyperlipidemia</content>, <content ID="encounterDiagnosisID3-2">Pituitary Neoplasm Benign</content>, <content ID="encounterDiagnosisID3-3">Migraine Headache</content></td>Outpatient Attender: Rosanna Benedicto WEIR [facility] 04/10/2021 02:52:00 PM EDT - 04/10/2021 03:29:00 PM EDT Pituitary Neoplasm BenignDepressionPitui tary Neoplasm BenignDepressionPituitary Neoplasm BenignDepressionPituitary Neoplasm BenignDepressionMigraine HeadacheMigraine HeadacheMigraine HeadacheMigraine HeadacheHyperlipidemiaHyperlipidemiaHyperlipidemiaHyperlipidemia [place] ([facility]) Pituitary Neoplasm Benign Depression Pituitary Neoplasm Benign Depression Pituitary Neoplasm Benign Depression Pituitary Neoplasm Benign Depression Migraine Headache Migraine Headache Migraine Headache Migraine Headache Hyperlipidemia Hyperlipidemia Hyperlipidemia Hyperlipidemia Outpatient Attender: TARA COBB [facility] 03/22 03:45:00 PM EDT [facility] ([facility] Outpatient Attender: Madyson Watters MD Physical Therapy 03/31 03:45:00 PM EDT [facility] ([facility] ) Outpatient Attender: JOHN CHAVEZ MD Medical Building 03/26 03:30:00 PM EDT [facility] (John Chavez MD) Outpatient Attender: EMILIO CRANE PAConsultant: Martha graves MD 03/25/2021 03:13:00 PM EDT - 03/25/2021 03:13:00 PM EDT [facility] Outpatient<td ID="encounterTypeDescripti onID4">STANDARD OV</td><td>Martha Mejia MD</td><td>[facility],</td><td>03/05/2021</td><td>12:55PM</td><td>1:32PM</td><td><content ID="encounterDiagnosisID4-0">Thyroid Disorders</content>, <content ID="encounterDiagnosisID4-1">Diabetes Mellitus Type 2 in Nonobese</content>, <content ID="encounterDiagnosisID4-2">Chronic Obstructive Pulmonary Disease</content>, <content ID="encounterDiagnosisID4-3">Assessment of Difficulty with Balance</content>, <content ID="encounterDiagnosisID4- 4">Undiagnosed Cardiac Murmur</content></td> Attender: Martha Mejia MD [facility], 03/05/2021 12:55:00 PM EDT - 03/05/2021 01:32:00 PM ED T Undiagnosed Cardiac MurmurAssessment of Difficulty with BalanceThyroid DisordersUndiagnosed Cardiac MurmurAssessment of Difficulty with BalanceThyroid DisordersUndiagnosed Cardiac MurmurAssessment of Difficulty with BalanceThyroid DisordersUndiagnosed Cardiac MurmurAssessment of Difficulty with BalanceThyroid DisordersUndiagnosed Cardiac MurmurAssessment of Difficulty with BalanceThyroid DisordersDiabetes Mellitus Type 2 in NonobeseDiabetes Mellitus Type 2 in NonobeseDiabetes Mellitus Type 2 in NonobeseDiabetes Mellitus Type 2 in NonobeseDiabetes Mellitus Type 2 in NonobeseChronic Obstructive Pulmonary DiseaseChronic Obstructive Pulmonary DiseaseChronic Obstructive Pulmonary DiseaseChronic Obstructive Pulmonary DiseaseChronic Obstructive Pulmonary Disease [place] ([facility]) Undiagnosed Cardiac Murmur Assessment of Difficulty with Balance Thyroid Disorders Undiagnosed Cardiac Murmur Assessment of Difficulty with Balance Thyroid Disorders Undiagnosed Cardiac Murmur Assessment of Difficulty with Balance Thyroid Disorders Undiagnosed Cardiac Murmur Assessment of Difficulty with Balance Thyroid Disorders Undiagnosed Cardiac Murmur Assessment of Difficulty with Balance Thyroid Disorders Diabetes Mellitus Type 2 in Nonobese Diabetes Mellitus Type 2 in Nonobese Diabetes Mellitus Type 2 in Nonobese Diabetes Mellitus Type 2 in Nonobese Diabetes Mellitus Type 2 in Nonobese Chronic Obstructive Pulmonary Disease Chronic Obstructive Pulmonary Disease Chronic Obstructive Pulmonary Disease Chronic Obstructive Pulmonary Disease Chronic Obstructive Pulmonary Disease Outpatient Attender: Madyson Watters MD Physical Therapy 02/20 02:45:00 PM EDT [facility] ([facility]) Unknown [address] [facility] [address] 02/17/2021 12:00:00 AM EDT eCW1 ([facility]) Outpatient Attender: Layla Mayo MD Main office - [facility] 02/10/2021 09:30:00 AM EDT [facility] ([facility]) Outpatient Attender: Madyson Watters MD Physical Therapy 02/04 09:45:00 AM EDT [facility] ([facility]) Outpatient<td ID="encounterTypeDescripti onID6"> CONSULTATION</td><td>Rosanna Diane DATA MANAGEMENT MANAGER</td><td>[facility]</td><td>02/05/2021</td><td>01/29/2021 4:21PM</td><td>01/29/2021 11:59PM</td><td><content ID="encounterDiagnosisID6-0">Urinary Tract Infection</content></td> Attender: Rosanna Diane NP [facility] [place] 01/29/2021 04:21:00 PM EST - 01/29/2021 11:59:00 PM ES T Urinary Tract InfectionUrinary Tract InfectionUrinary Tract InfectionUrinary Tract InfectionUrinary Tract InfectionUrinary Tract InfectionUrinary Tract Infection [place] ([facility]) Urinary Tract Infection Urinary Tract Infection Urinary Tract Infection Urinary Tract Infection Urinary Tract Infection Urinary Tract Infection Urinary Tract Infection Outpatient<td ID="encounterTypeDescripti onID7">RX UPDATE</td><td>Rosanna Diane NP</td><td>Family [facility]</td><td>02/05/2021</td><td>01/29/2021 4:09PM</td><td>01/29/2021 11:59PM</td><td></td> Attender: Rosanna Diane NP [facility], 01/29/2021 04:09:00 PM EST - 01/29/2021 11:59:00 PM EST [place] ([facility]) Outpatient<td ID="encounterTypeDescripti onID5">CLINICAL USE ONLY</td><td>Rosanna Diane NP</td><td>[facility],</td><td>02/10/2021</td><td>01/29/2021 2:20PM</td><td>01/29/2021 11:59PM</td><td></td> Attender: Rosanna Diane NP [facility], 01/29/2021 02:20:00 PM EST - 01/29/2021 11:59:00 PM EST [place] ([facility]) Outpatient<td ID="encounterTypeDescripti onID8">SURGICAL CLEARANCE</td><td>Rosanna Diane NP</td><td>[facility],</td><td>01/29/2021</td><td>10:18AM</td><td>10:56AM</td><td><content ID="encounterDiagnosisID8-0">Possible Stroke Syndrome</content></td> Attender: Rosanna Diane NP [facility], 01/29/2021 10:18:00 AM EST - 01/29/2021 10:56:00 AM EST Possible Stroke SyndromePossible Stroke SyndromePossible Stroke SyndromePossible Stroke SyndromePossible Stroke SyndromePossible Stroke SyndromePossible Stroke SyndromePossible Stroke SyndromePossible Stroke Syndrome [place] ([facility]) Possible Stroke Syndrome Possible Stroke Syndrome Possible Stroke Syndrome Possible Stroke Syndrome Possible Stroke Syndrome Possible Stroke Syndrome Possible Stroke Syndrome Possible Stroke Syndrome Possible Stroke Syndrome <td ID="encounterTypeDescriptionID9">JACINTO GICAL CLEARANCE</td><td>Rosanna Bansal Benedicto DESTIN</td><td>[facility]</td><td>01/22/2021</td><td>10:57AM</td><td>12:00PM</td><td><content ID="encounterDiagnosisID9-0">Disturbance of Gait</content>, <content ID="encounterDiagnosisID9-1">Possible Stroke Syndrome</content></td>Outpatient Attender: Rosanna Benedicto WEIR [facility] 01/22/2021 10:57:00 AM EST - 01/22/2021 12:00:00 PM EST Possible Stroke SyndromeDisturbance of GaitPossible Stroke SyndromeDisturbance of GaitPossible Stroke SyndromeDisturbance of GaitPossible Stroke SyndromeDisturbance of GaitPossible Stroke SyndromeDisturbance of GaitPossible Stroke SyndromeDisturbance of GaitPossible Stroke SyndromeDisturbance of GaitPossible Stroke SyndromeDisturbance of GaitPossible Stroke SyndromeDisturbance of GaitPossible Stroke SyndromeDisturbance of Gait [place] ([facility]) Possible Stroke Syndrome Disturbance of Gait Possible Stroke Syndrome Disturbance of Gait Possible Stroke Syndrome Disturbance of Gait Possible Stroke Syndrome Disturbance of Gait Possible Stroke Syndrome Disturbance of Gait Possible Stroke Syndrome Disturbance of Gait Possible Stroke Syndrome Disturbance of Gait Possible Stroke Syndrome Disturbance of Gait Possible Stroke Syndrome Disturbance of Gait Possible Stroke Syndrome Disturbance of Gait Unknown [address] [facility] [address] 01/22/2021 12:00:00 AM EST eCW1 ([facility]) Outpatient Attender: TARA COBB [facility] 12/2020 12:45:00 PM EST [facility] ([facility] Outpatient Attender: EMILIO CRANE PAConsultant: Martha graves MD 01/20/2021 03:52:00 PM EST - 01/20/2021 03:52:00 PM EST [facility] Unknown [address] [facility] [address] 01/20/2021 12:00:00 AM EST eCW1 ([facility]) Outpatient<td ID="encounterTypeDescripti onID10">RX UPDATE</td><td>Rosanna Diane DATA MANAGEMENT MANAGER</td><td></td><td>01/21/2021</td><td>01/13/2021 4:25PM</td><td>01/13/2021 11:59PM</td><td></td> Attender: Rosanna Diane NP 01/13/2021 04:25:00 PM EST - 01/13/2021 11:59:00 PM EST [place] ([facility]) <td ID="[id number]">EX TENDED VISIT</td><td>Rosanna Diane NP</td><td>[facility],</td><td>01/13/2021</td><td>2:11PM</td><td>3:46PM</td><td><content ID="compkcmvgWbuadhbqoQK14-7">Disorder of Muscle Weakness (Generalized)</content>, <content ID="hccusrlcsHckxtrkfsFB96-4">Allergic Rhinitis</content>, <content ID="owzqyctkpZomhrsgdoBD55-5">Migraine Headache</content>, <content ID="pbyhrmxgoDasthkkxyHQ84- 3">Hyperlipidemia</content>, <content ID="suqaemnupPqivhhqqbPI48-4">Emphysema</content></td>Outpatient Attender: Rosanna Diane NP [facility], 01/13/2021 02:11:00 PM EST - 01/13/2021 03:46:00 PM EST EmphysemaAllergic RhinitisDisorder of Mu scle Weakness (Generalized)EmphysemaAllergic RhinitisDisorder of Muscle Weakness (Generalized)EmphysemaAllergic RhinitisDisorder of Muscle Weakness (Generalize d)EmphysemaAllergic RhinitisDisorder of Muscle Weakness (Generalized)EmphysemaAllergic RhinitisDisorder of Muscle Weakness (Generalized)EmphysemaAllergic RhinitisDisorder of Muscle Weakness (Generalized)EmphysemaAllergic RhinitisDisorder of Muscle Weakness (Generalized) EmphysemaAllergic RhinitisDisorder of Muscle Weakness (Generalized)EmphysemaAllergic RhinitisDisorder of Muscle Weakness (Generalized)EmphysemaAllergic RhinitisDisorder of Muscle Weakness (Generalized )EmphysemaAllergic RhinitisDisorder of Muscle Weakness (Generalized)EmphysemaAllergic RhinitisDisorder of Muscle Weakness (Generalized)Migraine HeadacheMigraine HeadacheMigraine HeadacheMigraine HeadacheMigraine HeadacheMigraine HeadacheMigraine HeadacheMigraine Headache Migraine HeadacheMigraine HeadacheMigraine HeadacheMigraine HeadacheHyperlipidemiaHyperlipidemiaHyperlipidemiaHyperlipidemiaHyperlipidemiaHy perlipidemiaHyperlipidemiaHyperlipidemiaHyperlipidemiaHyperl ipidemiaHyperlipidemiaHyperlipidemia [place] ([facility]) Emphysema Allergic Rhinitis Disorder of Muscle Weakness (Generalized ) Emphysema Allergic Rhinitis Disorder of Muscle Weakness (Generalized ) Emphysema Allergic Rhinitis Disorder of Muscle Weakness (Generalized ) Emphysema Allergic Rhinitis Disorder of Muscle Weakness (Generalized ) Emphysema Allergic Rhinitis Disorder of Muscle Weakness (Generalized ) Emphysema Allergic Rhinitis Disorder of Muscle Weakness (Generalized ) Emphysema Allergic Rhinitis Disorder of Muscle Weakness (Generalized ) Emphysema Allergic Rhinitis Disorder of Muscle Weakness (Generalized ) Emphysema Allergic Rhinitis Disorder of Muscle Weakness (Generalized ) Emphy[place]ma Allergic Rhinitis Disorder of Muscle Weakness (Generalized ) [place]phy[place]ma Allergic Rhinitis Disorder of Muscle Weakness (Generalized ) [place] Allergic Rhinitis Disorder of Muscle Weakness (Generalized ) Migraine Headache Migraine Headache Migraine Headache Migraine Headache Migraine Headache Migraine Headache Migraine Headache Migraine Headache Migraine Headache Migraine Headache Migraine Headache Migraine Headache Hyperlipidemia Hyperlipidemia Hyperlipidemia Hyperlipidemia Hyperlipidemia Hyperlipidemia Hyperlipidemia Hyperlipidemia Hyperlipidemia Hyperlipidemia Hyperlipidemia Hyperlipidemia Outpatient<td ID="encounterTypeDescripti onID11">MEDICARE ANNUAL WELLNESS/RISK ASSESSMENT</td><td>Rosanna Diane NP</td><td>[facility],</td><td>01/13/2021</td><td>2:11PM</td><td>3:46PM</td><td><content ID="tlgbpbtsuIvshlhwehSL62-1">Routine History and Physical Adult (18 - 64 Yrs)</content></td> Attender: Rosanna Diane NP [facility] 01/13/2021 02:11:00 PM EST - 01/13/2021 03:46:00 PM EST Routine History and Physical Adult (18 - 64 Yrs)Routine History and Physical Adult (18 - 64 Yrs)Routine History and Physical Adult (18 - 64 Yrs)Routine History and Physical Adult (18 - 64 Yrs)Routine History and Physical Adult (18 - 64 Yrs)Routine History and Physical Adult (18 - 64 Yrs)Routine History and Physical Adult (18 - 64 Yrs)Routine History and Physical Adult (18 - 64 Yrs)Routine History and Physical Adult (18 - 64 Yrs)Routine History and Physical Adult (18 - 64 Yrs) Routine History and Physical Adult (18 - 64 Yrs)Routine History and Physical Adult (18 - 64 Yrs) [place] ([facility]) Routine History and Physical Adult (18 - 64 Yrs) Routine History and Physical Adult (18 - 64 Yrs) Routine History and Physical Adult (18 - 64 Yrs) Routine History and Physical Adult (18 - 64 Yrs) Routine History and Physical Adult (18 - 64 Yrs) Routine History and Physical Adult (18 - 64 Yrs) Routine History and Physical Adult (18 - 64 Yrs) Routine History and Physical Adult (18 - 64 Yrs) Routine History and Physical Adult (18 - 64 Yrs) Routine History and Physical Adult (18 - 64 Yrs) Routine History and Physical Adult (18 - 64 Yrs) Routine History and Physical Adult (18 - 64 Yrs) Outpatient Attender: Madyson Watters MD Physical Therapy 01/06 10:30:00 AM EST [facility] ([facility]) Unknown [address] [facility] [address] 01/02/2021 12:00:00 AM EST eCW1 ([facility]) Outpatient [address] [facility] [place] [address] 12/31/2020 12:00:00 AM EST eCW1 ([facility]) Unknown [address] [facility] [place] [address] 12/09/2020 12:00:00 AM EST eCW1 ([facility]) Outpatient Attender: ROGER pierce 11/23/2020 01:25:00 PM EST [facility] ([facility] Outpatient Attender: TARA COBB [facility] Office 10/23 01:00:00 PM EST [facility] ([facility] Outpatient Attender: Shari pierce 11/19/2020 12:15:00 PM EST [facility] ([facility]) Outpatient Attender: EMILIO CRANE PAConsultant: Martha graves MD 10/22/2020 03:38:00 PM EST - 10/22/2020 03:38:00 PM EST [facility] Unknown [address] [facility] [facility] [address] 10/08/2020 12:00:00 AM EST eCW1 ([facility]) Outpatient<td ID="encounterTypeDescripti onID14">RX UPDATE</td><td>Rosanna Diane NP</td><td>Family Medicine [facility]</td><td>11/11/2020</td><td>10/03/2020 5:16PM</td><td>10/03/2020 11:59PM</td><td></td> Attender: Rosanna Diane NP Family Medicine [facility] 10/03/2020 05:16:00 PM EST - 10/03/2020 11:59:00 PM EST [facility] ([facility]) <td ID="ta[id number]">[facility]</td><td>Rosanna Diane NP</td><td>Family Medicine [facility]</td><td>10/03/2020</td><td>3:39PM</td><td>4:41PM</td><td><content ID="sqtphpgwqQkxiaybyeZG85-2">Urge Incontinence of Urine</content>, <content ID="nifqqcyinBvzrbrpifKY61-5">Obsessive Compulsive Disorder</content></td>Outpatient Attender: [facility] Diane [facility] 10/03/2020 03:39:00 PM EST - 10/03/2020 04:41:00 PM ES T Obsessive Compulsive DisorderUrge Incontinence of UrineObsessive Compulsive DisorderUrge Incontinence of UrineObsessive Compulsive DisorderUrge Incontinence of UrineObsessive Compulsive DisorderUrge Incontinence of UrineObsessive Compulsive DisorderUrge Incontinence of UrineObsessive Compulsive DisorderUrge Incontinence of UrineObsessive Compulsive DisorderUrge Incontinence of UrineObsessive Compulsive DisorderUrge Incontinence of UrineObsessive Compulsive DisorderUrge Incontinence of UrineObsessive Compulsive DisorderUrge Incontinence of UrineObsessive Compulsive DisorderUrge Incontinence of UrineObsessive Compulsive DisorderUrge Incontinence of UrineObsessive Compulsive DisorderUrge Incontinence of Urine [place] ([facility]) Obsessive Compulsive Disorder Urge Incontinence of Urine Obsessive Compulsive Disorder Urge Incontinence of Urine Obsessive Compulsive Disorder Urge Incontinence of Urine Obsessive Compulsive Disorder Urge Incontinence of Urine Obsessive Compulsive Disorder Urge Incontinence of Urine Obsessive Compulsive Disorder Urge Incontinence of Urine Obsessive Compulsive Disorder Urge Incontinence of Urine Obsessive Compulsive Disorder Urge Incontinence of Urine Obsessive Compulsive Disorder Urge Incontinence of Urine Obsessive Compulsive Disorder Urge Incontinence of Urine Obsessive Compulsive Disorder Urge Incontinence of Urine Obsessive Compulsive Disorder Urge Incontinence of Urine Obsessive Compulsive Disorder Urge Incontinence of Urine Outpatient<td ID="encounterTypeDescripti onID13">E-VISIT E/M</td><td>Rosanna Diane NP</td><td>[facility]</td><td>12/10/2020</td><td>10/03/2020 11:39AM</td><td>10/03/2020 11:59PM</td><td><content ID="geqapkiekEawcjjrkrKM35-8">Muscle Hematoma</content></td> Attender: Rosanna Diane NP [facility] 10/03/2020 11:39:00 AM EST - 10/03/2020 11:59:00 PM ES T Muscle HematomaMuscle HematomaMuscle HematomaMuscle HematomaMuscle HematomaMuscle HematomaMuscle HematomaMuscle HematomaMuscle HematomaMuscle HematomaMuscle HematomaMuscle Hematoma [place] ([facility]) Muscle Hematoma Muscle Hematoma Muscle Hematoma Muscle Hematoma Muscle Hematoma Muscle Hematoma Muscle Hematoma Muscle Hematoma Muscle Hematoma Muscle Hematoma Muscle Hematoma Muscle Hematoma Outpatient<td ID="encounterTypeDescripti onID15">CLINICAL USE ONLY</td><td>Martha Mejia MD</td><td>[facility]</td><td>10/10/2020</td><td>10/03/2020 10:26AM</td><td>10/03/2020 11:59PM</td><td></td> Attender: Martha Mejia MD Family Medicine [facility], 10/03/2020 10:26:00 AM EST - 10/03/2020 11:59:00 PM EST [place] ([facility]) Outpatient Attender: Madyson Wattres MD Physical Therapy 09/03 02:30:00 PM EDT [facility] ([facility] Outpatient Attender: TARA COBB [facility] 08/22 09:30:00 AM EDT [facility] ([facility] Outpatient Attender: EMILIO FINNEY Family Practice 08/23 03:20:00 PM EDT [facility] ([facility] Outpatient Attender: EMILIO CRANE PAConsultant: Martha graves MD 08/23/2020 03:05:00 PM EDT - 08/23/2020 03:05:00 PM EDT [facility] <td ID="dj[id number]">E- VISIT E/M</td><td>Rosanna Nimisha Diane NP</td><td>Family Medicine [facility],</td><td>08/21/2020</td><td>4:03PM</td><td>5:09PM</td><td></td> Outpatient Attender: Rosanna Diane NP Family Medicine [facility], 0 08/21/2020 04:03:00 PM EDT - 08/21/2020 05:09:00 PM EDT [place] ([facility]) Outpatient<td ID="encounterTypeDescripti onID17">RX UPDATE</td><td>Martha Mejia MD</td><td>Family Medicine [facility]</td><td>09/26/2020</td><td>08/21/2020 1:06PM</td><td>08/21/2020 11:59PM</td><td></td> Attender: Martha Meija MD [facility] 08/21/2020 01:06:00 PM EDT - 08/21/2020 11:59:00 PM EDT [place] ([facility]) Outpatient Attender: EMILIO FINNEY Family Practice 07/26 03:00:00 PM [facility] Outpatient Attender: EMILIO Ac ferguson: Javi Oconnell MDConsultant: Martha Mejia MD 07/26/2020 02:50:00 PM EDT - 07/26/2020 02:50:0 0 PM EDT [facility] Outpatient<td ID="encounterTypeDescripti onID17">STANDARD OV</td><td>Martha Mejia MD</td><td>[facility]</td><td>07/24/2020</td><td>9:02AM</td><td>9:53AM</td><td><content ID="bynlqrawrZmfqojiqgPN66-9">Allergic Rhinitis</content>, <content ID="ivphectayNsxgjtxvnFY39-3">Diabetes Mellitus Type 2 in Nonobese</content>, <content ID="fgzvgxianEdmfwevpzFT46-5">Organic Sleep Apnea Obstructive Adult</content>, <content ID="mvmvzoqdlKvqigqvrtDR02-3">Obsessive Compulsive Disorder</content></td> Attender: Martha Mejia MD [facility], 07/24/2020 09:02:00 AM EDT - 07/24/2020 09:53:00 AM ED T Obsessive Compulsive DisorderObsessive Compulsive DisorderObsessive Compulsive DisorderObsessive Compulsive DisorderObsessive Compulsive DisorderObsessive Compulsive DisorderObsessive Compulsive DisorderObsessive Compulsive Disorder Obsessive Compulsive DisorderObsessive Compulsive DisorderObsessive Compulsive DisorderOrganic Sleep Apnea Obstructive AdultAllergic RhinitisOrganic Sleep Apnea Obstructive AdultAllergic RhinitisOrganic Sleep Apnea Obstructive Adult Allergic RhinitisOrganic Sleep Apnea Obstructive AdultAllergic RhinitisOrganic Sleep Apnea Obstructive AdultAllergic RhinitisOrganic Sleep Apnea Obstructive AdultAllergic RhinitisOrganic Sleep Apnea Obstructive AdultAllergic Rhinitis Organic Sleep Apnea Obstructive AdultAllergic RhinitisOrganic Sleep Apnea Obstructive AdultAllergic RhinitisOrganic Sleep Apnea Obstructive AdultAllergic RhinitisOrganic Sleep Apnea Obstructive AdultAllergic RhinitisObsessive Compulsive DisorderOrganic Sleep Apnea Obstructive AdultAllergic RhinitisObsessive Compulsive DisorderOrganic Sleep Apnea Obstructive AdultDiabetes Mellitus Type 2 in NonobeseAllergic RhinitisObsessive Compulsive DisorderOrganic Sleep Apnea Obstructive AdultDiabetes Mellitus Type 2 in NonobeseAllergic RhinitisDiabetes Mellitus Type 2 in NonobeseDiabetes Mellitus Type 2 in NonobeseDiabetes Mellitus Type 2 in NonobeseDiabetes Mellitus Type 2 in NonobeseDiabetes Mellitus Type 2 in NonobeseDiabetes Mellitus Type 2 in NonobeseDiabetes Mellitus Type 2 in NonobeseDiabetes Mellitus Type 2 in NonobeseDiabetes Mellitus Type 2 in NonobeseDiabetes Mellitus Type 2 in NonobeseDiabetes Mellitus Type 2 in NonobeseDiabetes Mellitus Type 2 in Nonobese [facility] ([facility]) Obsessive Compulsive Disorder Obsessive Compulsive Disorder Obsessive Compulsive Disorder Obsessive Compulsive Disorder Obsessive Compulsive Disorder Obsessive Compulsive Disorder Obsessive Compulsive Disorder Obsessive Compulsive Disorder Obsessive Compulsive Disorder Obsessive Compulsive Disorder Obsessive Compulsive Disorder Organic Sleep Apnea Obstructive Adult Allergic Rhinitis Organic Sleep Apnea Obstructive Adult Allergic Rhinitis Organic Sleep Apnea Obstructive Adult Allergic Rhinitis Organic Sleep Apnea Obstructive Adult Allergic Rhinitis Organic Sleep Apnea Obstructive Adult Allergic Rhinitis Organic Sleep Apnea Obstructive Adult Allergic Rhinitis Organic Sleep Apnea Obstructive Adult Allergic Rhinitis Organic Sleep Apnea Obstructive Adult Allergic Rhinitis Organic Sleep Apnea Obstructive Adult Allergic Rhinitis Organic Sleep Apnea Obstructive Adult Allergic Rhinitis Organic Sleep Apnea Obstructive Adult Allergic Rhinitis Obsessive Compulsive Disorder Organic Sleep Apnea Obstructive Adult Allergic Rhinitis Obsessive Compulsive Disorder Organic Sleep Apnea Obstructive Adult Diabetes Mellitus Type 2 in Nonobese Allergic Rhinitis Obsessive Compulsive Disorder Organic Sleep Apnea Obstructive Adult Diabetes Mellitus Type 2 in Nonobese Allergic Rhinitis Diabetes Mellitus Type 2 in Nonobese Diabetes Mellitus Type 2 in Nonobese Diabetes Mellitus Type 2 in Nonobese Diabetes Mellitus Type 2 in Nonobese Diabetes Mellitus Type 2 in Nonobese 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 Moderna Covid-19 Sars-Cov-2, mRNA, LNP-S, PF, 100 mcg/ 0.5 mL 12/25/2020 11:00:00 PM EST completed [facility] ([facility]) COVID-19 VACCINE Moderna 11/28/2020 12:00:00 AM EST completed [facility] Vaccine Series Complete: NOThis Data was Submitted to [facility] Via [employer]. Moderna Covid-19 Sars-Cov-2, mRNA, LNP-S, PF, 100 mcg/ 0.5 mL 11/27/2020 11:00:00 PM EST completed [facility] ([facility]) Medications Medication Brand Name Start Date Product Form Dose Route Admi nistrative Instructions Pharmacy Instructions Status Indications Reaction Description Data Source(s) NITROFURANTOIN, MACROCRYSTALS 25 MG / Ni trofurantoin, Monohydrate 75 MG Oral Capsule [Macrobid] Macrobid 100 MG Macrobid 100 MG 08/05/2021 12:00:00 AM EDT active Macrobid 100 MG eCW1 ([facility]) NITROFURANTOIN, MACROCRYSTALS 25 MG / Ni trofurantoin, Monohydrate 75 MG Oral Capsule [Macrobid] Macrobid 100 MG Macrobid 100 MG 08/05/2021 12:00:00 AM EDT active Macrobid 100 MG eCW1 ([facility]) NITROFURANTOIN, MACROCRYSTALS 25 MG / Ni trofurantoin, Monohydrate 75 MG Oral Capsule [Macrobid] Macrobid 100 MG Macrobid 100 MG 08/05/2021 12:00:00 AM EDT active Macrobid 100 MG eCW1 ([facility]) NITROFURANTOIN, MACROCRYSTALS 25 MG / Ni trofurantoin, Monohydrate 75 MG Oral Capsule [Macrobid] Macrobid 100 MG Macrobid 100 MG 08/05/2021 12:00:00 AM EDT active Macrobid 100 MG eCW1 ([facility]) NITROFURANTOIN, MACROCRYSTALS 25 MG / Ni trofurantoin, Monohydrate 75 MG Oral Capsule [Macrobid] Macrobid 100 MG Macrobid 100 MG 08/05/2021 12:00:00 AM EDT active Macrobid 100 MG eCW1 ([facility]) cocoa butter 0.884 MG/MG / Phenylephrine Hydrochloride 0.0025 MG/MG Rectal Suppository Preparation H 07/29/2021 12:00:00 AM EDT active [facility] ([facility], ) Huggies Pull-Ups Miscellaneous Huggies Pull-Ups Miscellaneou s 06/12/2021 12:00:00 AM EDT completed Huggi es Pull-Ups [facility] ([facility]) Fenofibrate 48 MG Oral Tablet Fenofibrate 48 MG Oral Tablet 06/12/2021 12:00:00 AM EDT active fenofibrate 48 MG Oral Tablet [place] ([facility]) 12 HR Bupropion Hydrochloride 100 MG Ext ended Release Oral Tablet buPROPion HCl ER (SR) 100 MG Oral Tablet Extended Release 12 Hour buPROPion HCl ER (SR) 100 MG Oral Tablet Extended Release 12 Hour 06/12/2021 12:00:00 AM EDT active 12 HR bupropion hydrochloride 10 0 MG Extended Release Oral Tablet [facility]) Omeprazole 20 MG Delayed Release Oral Ca psule Omeprazole 20 MG Oral Capsule Delayed Release Omeprazole 20 MG Oral Capsule Delayed Release 06/12/20 12:00:00 AM EDT active omeprazole 20 MG Delayed Release Oral Capsule [facility]) cetirizine hydrochloride 10 MG Oral Tablet Cetirizine HCl 10 MG Oral Tablet Cetirizine HCl 10 MG Oral Tablet 06/12/2021 12:00:00 AM EDT active cetirizine hydrochloride 10 MG Oral Tablet [facility] ([facility]) Sumatriptan 25 MG Oral Tablet SUMAtriptan Succinate 25 MG Oral Tablet SUMAtriptan Succinate 25 MG Oral Tablet 06/12/2021 12:00:00 AM EDT active [facility]ript[facility] carbamide peroxide 65 MG/ML Otic Solutio n [Murine Ear] Murine Ear 6.5% Otic Solution Murine Ear 6.5% Otic Solution 06/12/2021 12:00:00 AM EDT active carbamide peroxide 65 MG/ML Otic Solution [Murine Ear] [facility]) Huggies Pull-Ups Miscellaneous Huggies Pull-Ups Miscellaneou s 06/12/2021 12:00:00 AM EDT aborted Huggies Pull-Ups [facility]) Multivitamins Oral Capsule Multivitamins Oral Capsule 2020 12:00:00 AM EDT 1 [facility] gabapentin 300 MG Oral Capsule Gabapentin 300 MG Oral Capsule Gabapentin 300 MG Oral Capsule 06/12/2021 12:00:00 AM EDT activ e gabapentin [address] [facility]) Cholecalciferol 1000 UNT Oral Capsule Vitamin D3 25 MC G (1000 UT) Oral Capsule Vitamin D3 25 MCG (1000 UT) Oral Capsule 06/12/2021 12:00:00 AM EDT active cholecalciferol 0.[address] [facility]) Magnesium Oxide 400 MG Oral Tablet Magne sium Oxide 400 (241.3 Mg) MG Oral Tablet Magnesium Oxide 400 (241.3 Mg) MG Oral Tablet 06/12/2021 12:00:00 AM EDT active magnesium oxide 400 [address] [facility]) Simvastatin 40 MG Oral Tablet Simvastatin 40 MG Oral Tablet 06/12/2021 12:00:00 AM EDT 1 active simvastatin [address] [facility]) 7 ACTUAT umeclidinium 0.0625 MG/ACTUAT D ry Powder Inhaler [Incruse] Incruse Ellipta 62.5 MCG/INH Inhalation Aerosol Powder Breath Activated Incruse Ellipta 62.5 MCG/INH Inhalation Aerosol Powder Breath Activated 06/12/2021 12:00:00 AM EDT active 7 ACTUAT umeclidinium 0.0625 MG/ACTUAT Dry Powder Inhaler [Incruse] [facility]) ammonium lactate 120 MG/ML Topical Lotion Ammonium Lac turner 12% External Lotion Ammonium Lactate 12% External Lotion 06/12/2021 12:00:00 AM EDT active ammonium lactate 120 MG/ML Topic al Lotion [place] ([facility]) ferrous sulfate 325 MG Oral Tablet Ferrous Sulfate 325 (65 Fe) MG Oral Tablet Ferrous Sulfate 325 (65 Fe) MG Oral Tablet 06/12/2021 12:00:00 AM EDT active ferrous sulfate 325 MG Oral Tabl et [place] ([facility]) Alendronic acid 70 MG Oral Tablet Alendronate Sodium 7 0 MG Oral Tablet Alendronate Sodium 70 MG Oral Tablet 06/01/2021 12:00:00 AM EDT active alendronic acid 70 MG Oral Table t [place] ([facility]) Fluticasone Propionate 50 MCG/ACT Nasal Suspension Flu ticasone Propionate 50 MCG/ACT Nasal Suspension 05/28/2021 12:00:00 AM EDT active fluticasone propionate 0.05 MG/ACTUAT Metered Dose Nasal [place] ([facility]) ferrous sulfate 325 MG Oral Tablet Ferrous Sulfate 325 (65 Fe) MG Oral Tablet Ferrous Sulfate 325 (65 Fe) MG Oral Tablet 04/10/2021 12:00:00 AM EDT aborted ferrous sulfate 325 MG Oral Tabl et [place] ([facility]) Fenofibrate 48 MG Oral Tablet Fenofibrate 48 MG Oral Tablet 04/10/2021 12:00:00 AM EDT aborted fenofibrate 48 M G Oral Tablet [place] ([facility]) gabapentin 300 MG Oral Capsule Gabapentin 300 MG Oral Capsule Gabapentin 300 MG Oral Capsule 04/10/2021 12:00:00 AM EDT abort ed gabapentin 300 MG Oral Capsule [place] ([facility]) 12 HR Bupropion Hydrochloride 100 MG Ext ended Release Oral Tablet buPROPion HCl ER (SR) 100 MG Oral Tablet Extended Release 12 Hour buPROPion HCl ER (SR) 100 MG Oral Tablet Extended Release 12 Hour 04/10/2021 12:00:00 AM EDT aborted 12 HR bupropion hydrochloride 10 0 MG Extended Release Oral Tablet [place] ([facility]) Multivitamins Oral Capsule Multivitamins Oral Capsule 2020 12:00:00 AM EDT 1 [facility] cetirizine hydrochloride 10 MG Oral Tablet Cetirizine HCl 10 MG Oral Tablet Cetirizine HCl 10 MG Oral Tablet 04/04/2021 12:00:00 AM EDT aborted cetirizine hydrochloride 10 MG Oral Tablet [facility] ([facility]) Fiber-Lax 625 MG Oral Tablet Fiber-Lax 625 MG Oral Tablet 12:00:00 AM EDT aborted Fiber-Lax [facility] ([facility]) Omeprazole 20 MG Delayed Release Oral Ca psule Omeprazole 20 MG Oral Capsule Delayed Release Omeprazole 20 MG Oral Capsule Delayed Release 04/04/20 12:00:00 AM EDT aborted omeprazole 20 MG Delayed Release Oral Capsule [place] ([facility]) Dobutamine IV Injection 250MG 04/02/2021 12:00:00 AM EDT completed [facility] (John stephenson MD) Medication administered onsite Technetium TC 99M Sestamibi 04/02/2021 12:00:00 AM EDT completed [facility] (John Chavez MD) Medication administered onsite Sumatriptan 25 MG Oral Tablet SUMAtriptan Succinate 25 MG Oral Tablet SUMAtriptan Succinate 25 MG Oral Tablet 04/01/2021 12:00:00 AM EDT aborted [facility]riptan 25 MG [facility] 7 ACTUAT umeclidinium 0.0625 MG/ACTUAT D ry Powder Inhaler [Incruse] Incruse Ellipta 62.5 MCG/INH Inhalation Aerosol Powder Breath Activated Incruse Ellipta 62.5 MCG/INH Inhalation Aerosol Powder Breath Activated 04/01/2021 12:00:00 AM EDT aborted 7 ACTUAT umeclidinium 0.0625 MG/ACTUAT Dry Powder Inhaler [Incruse] [facility] ([facility]) Cholecalciferol 1000 UNT Oral Capsule Vitamin D3 25 MC G (1000 UT) Oral Capsule Vitamin D3 25 MCG (1000 UT) Oral Capsule 03/20/2021 12:00:00 AM EDT aborted cholecalciferol 0.025 MG Oral Ca psule [facility] ([facility]) Magnesium Oxide 400 MG Oral Tablet Magne sium Oxide 400 (241.3 Mg) MG Oral Tablet Magnesium Oxide 400 (241.3 Mg) MG Oral Tablet 03/14/2021 12:00:00 AM EDT aborted magnesium oxide 400 MG Or al Tablet [place] ([facility]) Alendronic acid 70 MG Oral Tablet Alendronate Sodium 7 0 MG Oral Tablet Alendronate Sodium 70 MG Oral Tablet 03/05/2021 12:00:00 AM EDT aborted alendronic acid 70 MG Oral Table t [place] ([facility]) carbamide peroxide 65 MG/ML Otic Solutio n [Murine Ear] Murine Ear 6.5% Otic Solution Murine Ear 6.5% Otic Solution 03/05/2021 12:00:00 AM EDT aborted carbamide peroxide 65 MG/ML Otic Solution [Murine Ear] [place] ([facility]) Magnesium Oxide 400 MG Oral Tablet Magnesium Oxide 400 MG Or al Tablet 03/05/2021 12:00:00 AM EDT aborted magnesi um oxide 400 MG Oral Tablet [place] ([facility]) Fluticasone Propionate 50 MCG/ACT Nasal Suspension Flu ticasone Propionate 50 MCG/ACT Nasal Suspension 03/05/2021 12:00:00 AM EDT 2 aborted fluticasone propionate 0.05 MG/ACTUAT Metered Dose Nasal [place] [facility]) Huggies Pull-Ups Miscellaneous Huggies Pull-Ups Miscellaneou s 03/05/2021 12:00:00 AM EDT aborted Huggies Pull-Ups [place] ([facility]) Simvastatin 40 MG Oral Tablet Simvastatin 40 MG Oral Tablet 03/05/2021 12:00:00 AM EDT 1 aborted simvastatin 40 M G Oral Tablet [place] ([facility]) 12 HR Bupropion Hydrochloride 100 MG Ext ended Release Oral Tablet buPROPion HCl ER (SR) 100 MG Oral Tablet Extended Release 12 Hour buPROPion HCl ER (SR) 100 MG Oral Tablet Extended Release 12 Hour 02/08/2021 12:00:00 AM EDT aborted 12 HR bupropion hydrochloride 10 0 MG Extended Release Oral Tablet [place] ([facility]) Cephalexin 500 MG Oral Capsule Cephalexin 500 MG Oral Capsul e 02/05/2021 12:00:00 AM EDT aborted cephale dayan [address] [facility]) Multivitamins Oral Capsule Multivitamins Oral Capsule 2020 12:00:00 AM EST 1 [facility] NITROFURANTOIN, MACROCRYSTALS 25 MG / Ni trofurantoin, Monohydrate 75 MG Oral Capsule [Macrobid] Macrobid 100 MG Macrobid 100 MG 01/20/2021 12:00:00 AM EST active Macrobid 100 MG eCW1 ([facility]) NITROFURANTOIN, MACROCRYSTALS 25 MG / Ni trofurantoin, Monohydrate 75 MG Oral Capsule [Macrobid] Macrobid 100 MG Macrobid 100 MG 01/20/2021 12:00:00 AM EST active Macrobid 100 MG eCW1 ([facility]) NITROFURANTOIN, MACROCRYSTALS 25 MG / Ni trofurantoin, Monohydrate 75 MG Oral Capsule [Macrobid] Macrobid 100 MG Macrobid 100 MG 01/20/2021 12:00:00 AM EST active Macrobid 100 MG eCW1 ([facility]) NITROFURANTOIN, MACROCRYSTALS 25 MG / Ni trofurantoin, Monohydrate 75 MG Oral Capsule [Macrobid] Macrobid 100 MG Macrobid 100 MG 01/20/2021 12:00:00 AM EST active Macrobid 100 MG eCW1 ([facility]) Omeprazole 20 MG Delayed Release Oral Ca psule Omeprazole 20 MG Oral Capsule Delayed Release Omeprazole 20 MG Oral Capsule Delayed Release 01/13/20 12:00:00 AM EST aborted omeprazole 20 MG Delayed Release Oral Capsule [place] ([facility]) gabapentin 300 MG Oral Capsule Gabapentin 300 MG Oral Capsule Gabapentin 300 MG Oral Capsule 01/13/2021 12:00:00 AM EST abort ed gabapentin 300 MG Oral Capsule [place] ([facility]) 7 ACTUAT umeclidinium 0.0625 MG/ACTUAT D ry Powder Inhaler [Incruse] Incruse Ellipta 62.5 MCG/INH Inhalation Aerosol Powder Breath Activated Incruse Ellipta 62.5 MCG/INH Inhalation Aerosol Powder Breath Activated 01/13/2021 12:00:00 AM EST aborted 7 ACTUAT umeclidinium 0.0625 MG/ACTUAT Dry Powder Inhaler [Incruse] [place] ([facility]) Sumatriptan 25 MG Oral Tablet SUMAtriptan Succinate 25 MG Oral Tablet SUMAtriptan Succinate 25 MG Oral Tablet 01/13/2021 12:00:00 AM EST aborted [facility]riptan [facility] MG [facility] cetirizine hydrochloride 10 MG Oral Tablet Cetirizine HCl 10 MG Oral Tablet Cetirizine HCl 10 MG Oral Tablet 01/13/2021 12:00:00 AM EST aborted cetirizine hydrochloride 10 MG Oral Tablet [place] ([facility]) Fenofibrate 48 MG Oral Tablet Fenofibrate 48 MG Oral Tablet 01/13/2021 12:00:00 AM EST aborted fenofibrate 48 M G Oral Tablet [facility]) ferrous sulfate 325 MG Oral Tablet Ferrous Sulfate 325 (65 Fe) MG Oral Tablet Ferrous Sulfate 325 (65 Fe) MG Oral Tablet 01/13/2021 12:00:00 AM EST aborted ferrous sulfate 325 MG Oral Tabl et [place] ([facility]) calcium polycarbophil 625 MG Oral Tablet [FiberCon] Fi berCon 625 MG Oral Tablet FiberCon 625 MG Oral Tablet 01/13/2021 12:00:00 AM EST aborted calcium polycarbophil 625 MG Oral Tablet [FiberCon] [place] ([facility]) ferrous sulfate 325 MG Oral Tablet Ferrous Sulfate 325 (65 Fe) MG Oral Tablet Ferrous Sulfate 325 (65 Fe) MG Oral Tablet 01/10/2021 12:00:00 AM EST aborted ferrous sulfate 325 MG Oral Tabl et [place] ([facility]) Alendronic acid 70 MG Oral Tablet Alendronate Sodium 7 0 MG Oral Tablet Alendronate Sodium 70 MG Oral Tablet 01/07/2021 12:00:00 AM EST aborted alendronic acid 70 [address] [facility]) Sure Comfort Pen Denbo 32G X 6 MM Miscellaneous Sure Comfort Pen Denbo 32G X 6 MM Miscellaneous 01/02/2021 12:00:00 AM EST aborted Sure Comfort Pen Denbo [place] ([facility]) Glucose 4000 MG Chewable Tablet [Dex4] Dex4 Glucose 12:00:00 AM EST active [facility] ( [facility]) Glucose Tabs 01/01/2021 12:00:00 AM EST compl eted [facility] ([facility]) Fluticasone Propionate 50 MCG/ACT Nasal Suspension Flu ticasone Propionate 50 MCG/ACT Nasal Suspension 12/27/2020 12:00:00 AM EST 2 aborted fluticasone propionate 0.05 MG/ACTUAT Metered Dose Nasal [place] ([facility]) Magnesium Oxide 400 MG Oral Tablet Magnesium Oxide 400 MG Or al Tablet 12/20/2020 12:00:00 AM EST aborted magnes ium oxide 400 MG Oral Tablet [place] ([facility]) carbamide peroxide 65 MG/ML Otic Solutio n [Murine Ear] Murine Ear 6.5% Otic Solution Murine Ear 6.5% Otic Solution 12/17/2020 12:00:00 AM EST aborted carbamide peroxide 65 MG/ML Otic Solution [Murine Ear] [facility]) ferrous sulfate 325 MG Oral Tablet Ferrous Sulfate 325 (65 Fe) MG Oral Tablet Ferrous Sulfate 325 (65 Fe) MG Oral Tablet 12/13/2020 12:00:00 AM EST aborted ferrous sulfate 325 MG Oral Tabl et [place] ([facility]) ammonium lactate 120 MG/ML Topical Lotion Ammonium Lac turner 12% External Lotion Ammonium Lactate 12% External Lotion 12/08/2020 12:00:00 AM EST aborted ammonium lactate 120 MG/ML Topic al Lotion [place] ([facility]) Cholecalciferol 1000 UNT Oral Capsule Vitamin D3 25 MC G (1000 UT) Oral Capsule Vitamin D3 25 MCG (1000 UT) Oral Capsule 12/05/2020 12:00:00 AM EST aborted cholecalciferol 0.025 MG Oral Ca psule [place] ([facility]) Simvastatin 40 MG Oral Tablet Simvastatin 40 MG Oral Tablet 12/05/2020 12:00:00 AM EST 1 aborted simvastatin 40 M G Oral Tablet [place] ([facility]) 12 HR Bupropion Hydrochloride 100 MG Ext ended Release Oral Tablet buPROPion HCl ER (SR) 100 MG Oral Tablet Extended Release 12 Hour buPROPion HCl ER (SR) 100 MG Oral Tablet Extended Release 12 Hour 11/25/2020 12:00:00 AM EST aborted 12 HR bupropion hydrochloride 10 0 MG Extended Release Oral Tablet [place] ([facility]) Cephalexin 500 MG Oral Tablet Cephalexin 11/23/2020 12:00:00 AM EST ORAL active [facility] ([facility]) calcium polycarbophil 625 MG Oral Tablet [FiberCon] Fi berCon 625 MG Oral Tablet FiberCon 625 MG Oral Tablet 11/19/2020 12:00:00 AM EST aborted calcium polycarbophil 625 MG Oral Tablet [FiberCon] [place] ([facility]) Omeprazole 20 MG Delayed Release Oral Ca psule Omeprazole 20 MG Oral Capsule Delayed Release Omeprazole 20 MG Oral Capsule Delayed Release 11/11/20 12:00:00 AM EST aborted omeprazole 20 MG Delayed Release Oral Capsule [facility]) gabapentin 300 MG Oral Capsule Gabapentin 300 MG Oral Capsule Gabapentin 300 MG Oral Capsule 11/11/2020 12:00:00 AM EST abort ed gabapentin [address] [facility]) cetirizine hydrochloride 10 MG Oral Tablet Cetirizine HCl 10 MG Oral Tablet Cetirizine HCl 10 MG Oral Tablet 11/05/2020 12:00:00 AM EST aborted cetirizine hydrochloride 10 MG Oral Tablet [place] ([facility]) Fenofibrate 48 MG Oral Tablet Fenofibrate 48 MG Oral Tablet 11/05/2020 12:00:00 AM EST aborted fenofibrate 48 M G Oral Tablet [facility]) 7 ACTUAT umeclidinium 0.0625 MG/ACTUAT D ry Powder Inhaler [Incruse] Incruse Ellipta 62.5 MCG/INH Inhalation Aerosol Powder Breath Activated Incruse Ellipta 62.5 MCG/INH Inhalation Aerosol Powder Breath Activated 10/25/2020 12:00:00 AM EST aborted 7 ACTUAT umeclidinium 0.0625 MG/ACTUAT Dry Powder Inhaler [Incruse] [place] ([facility]) Magnesium 400 MG Oral Tablet Magnesium 400 MG Oral Tablet 12:00:00 AM EST aborted Magnesium [facility] ([facility]) 12 HR Bupropion Hydrochloride 100 MG Ext ended Release Oral Tablet buPROPion HCl ER (SR) 100 MG Oral Tablet Extended Release 12 Hour buPROPion HCl ER (SR) 100 MG Oral Tablet Extended Release 12 Hour 10/08/2020 12:00:00 AM EST aborted 12 HR bupropion hydrochloride 10 0 MG Extended Release Oral Tablet [facility]) cetirizine hydrochloride 10 MG Oral Tablet Cetirizine HCl 10 MG Oral Tablet Cetirizine HCl 10 MG Oral Tablet 10/08/2020 12:00:00 AM EST aborted cetirizine hydrochloride 10 MG Oral Tablet [place] ([facility]) Fenofibrate 48 MG Oral Tablet Fenofibrate 48 MG Oral Tablet 10/08/2020 12:00:00 AM EST aborted fenofibrate 48 M G Oral Tablet [place] ([facility]) dapagliflozin 5 MG Oral Tablet [Farxiga] Farxiga 5 MG Oral Tablet Farxiga 5 MG Oral Tablet 10/03/2020 12:00:00 AM EST aborte d dapagliflozin 5 MG Oral Tablet [Farxiga] [place] ([facility]) Huggies Pull-Ups Miscellaneous Huggies Pull-Ups Miscellaneou s 10/03/2020 12:00:00 AM EST aborted Huggies Pull-Ups [facility]) POLYETHYLENE GLYCOL 3350 142 MG/ML Oral Solution [Miralax] MiraLax 17 GM Oral Packet MiraLax 17 GM Oral Packet 10/03/2020 12:00:00 AM EST 1 active polyethylene glycol 3350 06013 MG Powder for Oral Solu tion [Miralax] [facility]) hydroxizine 15 mg Oral Capsule hydroxizine 15 mg Oral Capsul e 10/03/2020 12:00:00 AM EST [address] [facility]) 7 ACTUAT umeclidinium 0.0625 MG/ACTUAT D ry Powder Inhaler [Incruse] Incruse Ellipta 62.5 MCG/INH Inhalation Aerosol Powder Breath Activated Incruse Ellipta 62.5 MCG/INH Inhalation Aerosol Powder Breath Activated 09/28/2020 12:00:00 AM EST aborted 7 ACTUAT umeclidinium 0.0625 MG/ACTUAT Dry Powder Inhaler [Incruse] [place] ([facility]) ferrous sulfate 325 MG Oral Tablet Ferrous Sulfate 325 (65 Fe) MG Oral Tablet Ferrous Sulfate 325 (65 Fe) MG Oral Tablet 09/26/2020 12:00:00 AM EST 1 aborted ferrous sulfate 325 MG Oral Tabl et [place] ([facility]) Alendronic acid 70 MG Oral Tablet [Fosamax] Fosamax 70 MG Oral Tablet Fosamax 70 MG Oral Tablet 09/26/2020 12:00:00 AM EST ab orted alendronic acid 70 MG Oral Tablet [Fosamax] [place] ([facility]) dapagliflozin 10 MG Oral Tablet [Farxiga] Farxiga 09/26/2020 1 2:00:00 AM EST ORAL completed [facility] ([facility]) Magnesium 400 MG Oral Tablet Magnesium 400 MG Oral Tablet 12:00:00 AM EST aborted Magnesium [facility] ([facility]) ammonium lactate 120 MG/ML Topical Lotio n [Lac-Hydrin] Lac-Hydrin Twelve 12% External Lotion Lac-Hydrin Twelve 12% External Lotion 09/19/2020 12:00 :00 AM EDT aborted ammonium lactate 120 MG/ML Topical Lotion [Lac-Hydrin] [place] ([facility]) Cholecalciferol 1000 UNT Oral Capsule Vitamin D3 25 MC G (1000 UT) Oral Capsule Vitamin D3 25 MCG (1000 UT) Oral Capsule 09/18/2020 12:00:00 AM EDT aborted cholecalciferol 0.025 MG Oral Ca psule [place] ([facility]) Simvastatin 40 MG Oral Tablet Simvastatin 40 MG Oral Tablet 09/18/2020 12:00:00 AM EDT 1 aborted simvastatin 40 M G Oral Tablet [place] ([facility]) Multivitamins Oral Capsule Multivitamins Oral Capsule 2019 12:00:00 AM EDT 1 [facility] Fenofibrate 48 MG Oral Tablet Fenofibrate 48 MG Oral Tablet 09/10/2020 12:00:00 AM EDT aborted fenofibrate 48 M G Oral Tablet [place] ([facility]) 12 HR Bupropion Hydrochloride 100 MG Ext ended Release Oral Tablet buPROPion HCl ER (SR) 100 MG Oral Tablet Extended Release 12 Hour buPROPion HCl ER (SR) 100 MG Oral Tablet Extended Release 12 Hour 09/10/2020 12:00:00 AM EDT aborted 12 HR bupropion hydrochloride 10 0 MG Extended Release Oral Tablet [place] ([facility]) cetirizine hydrochloride 10 MG Oral Tablet Cetirizine HCl 10 MG Oral Tablet Cetirizine HCl 10 MG Oral Tablet 09/10/2020 12:00:00 AM EDT aborted cetirizine hydrochloride 10 MG Oral Tablet [facility] ([facility]) calcium polycarbophil 625 MG Oral Tablet [FiberCon] Fi berCon 625 MG Oral Tablet FiberCon 625 MG Oral Tablet 09/02/2020 12:00:00 AM EDT aborted calcium polycarbophil 625 MG Oral Tablet [FiberCon] [place] ([facility]) Magnesium 400 MG Oral Tablet Magnesium 400 MG Oral Tablet 12:00:00 AM EDT aborted Magnesium [place] ([facility]) POLYETHYLENE GLYCOL 3350 142 MG/ML Oral Solution [Miralax] M iralax 08/28/2020 12:00:00 AM EDT active M [place]IM[place] ([facility], ) 7 ACTUAT umeclidinium 0.0625 MG/ACTUAT D ry Powder Inhaler [Incruse] Incruse Ellipta 62.5 MCG/INH Inhalation Aerosol Powder Breath Activated Incruse Ellipta 62.5 MCG/INH Inhalation Aerosol Powder Breath Activated 08/22/2020 12:00:00 AM EDT aborted 7 ACTUAT umeclidinium 0.0625 MG/ACTUAT Dry Powder Inhaler [Incruse] [place] ([facility]) 200 ACTUAT Albuterol 0.09 MG/ACTUAT Mete red Dose Inhaler [Ventolin] Ventolin HFA 108 (90 Base) MCG/ACT Inhalation Aerosol Solution Ventolin HFA 108 (90 Base) MCG/ACT Inhalation Aerosol Solution 08/22/2020 12:00:00 AM EDT 18 aborted [id number] 200 ACTUAT albuterol 0.09 MG/ACTUAT Metered Dose Inhaler [Ventolin] [place] ([facility]) POLYETHYLENE GLYCOL 3350 142 MG/ML Oral Solution [Miralax] M iralax 08/16/2020 12:00:00 AM EDT completed [facility] ([facility], ) Acetaminophen 325 MG / Hydrocodone Bitartrate 5 MG Oral Tabl et [[place]] [place] 08/01/2020 12:00:00 AM EDT ORAL active [facility] ([facility], ) magnesium citrate 58.2 MG/ML Oral Solution Magnesium Citrate 07/30/2020 12:00:00 AM EDT completed [facility] ([facility], ) Bisacodyl 5 MG Delayed Release Oral Tablet Bisacodyl Ec 07/30/2020 12:00:00 AM EDT ORAL completed [facility] ([facility], ) Bisacodyl 10 MG Rectal Suppository Bisacodyl 07/30/2020 12:00:00 AM EDT completed [facility] ([facility], ) Hydroxyzine Hydrochloride 50 MG Oral Tablet Hydroxyzine HCL 07/26/2020 12:00:00 AM EDT ORAL active [facility] ([facility]) gabapentin 300 MG Oral Capsule Gabapentin 300 MG Oral Capsule Gabapentin 300 MG Oral Capsule 07/26/2020 12:00:00 AM EDT abort ed gabapentin [address] [facility]) quetiapine 50 MG Oral Tablet [Seroquel] SEROquel 50 MG Oral Tablet SEROquel 50 MG Oral Tablet 07/24/2020 12:00:00 AM EDT 1 abo rted quetiapine 50 MG Oral Tablet [Seroquel] [facility]) lamotrigine 100 MG Oral Tablet [Lamictal] LaMICtal 100 MG Oral Tablet LaMICtal 100 MG Oral Tablet 07/24/2020 12:00:00 AM EDT active lamotrigine 100 MG Oral Tablet [Lamictal] [facility]) Multivitamins Oral Capsule Multivitamins Oral Capsule 2019 12:00:00 AM EDT 1 [facility] Omeprazole 20 MG Delayed Release Oral Ca psule Omeprazole 20 MG Oral Capsule Delayed Release Omeprazole 20 MG Oral Capsule Delayed Release 07/23/20 12:00:00 AM EDT aborted omeprazole 20 MG Delayed Release Oral Capsule [facility]) POLYETHYLENE GLYCOL 3350 105 MG/ML / Pot assium Chloride 0.28125 MEQ/ML / Sodium Bicarbonate 0.017 MEQ/ML / Sodium Chloride 0.0479 MEQ/ML Oral Solution [GaviLyte-N] Gavilyte-N With Flavor Pack 07/01/2020 12:00:00 AM EDT completed [facility] ([facility], ) Bisacodyl 5 MG Delayed Release Oral Tablet [Dulcolax] Dulcol ax 07/01/2020 12:00:00 AM EDT completed [facility] ([facility], ) lamotrigine 100 MG Oral Tablet [Lamictal] LaMICtal 100 MG Oral Tablet LaMICtal 100 MG Oral Tablet 06/18/2020 12:00:00 AM EDT 1 aborted lamotrigine 100 MG Oral Tablet [Lamictal] [place] ([facility]) ammonium lactate 120 MG/ML Topical Lotio n [Lac-Hydrin] Lac-Hydrin Twelve 12% External Lotion Lac-Hydrin Twelve 12% External Lotion 06/18/2020 12:00 :00 AM EDT aborted ammonium lactate 120 MG/ML Topical Lotion [Lac-Hydrin] [place] ([facility]) Basaglar KwikPen 100 UNIT/ML Subcutaneous Solution Pen -injector Basaglar KwikPen 100 UNIT/ML Subcutaneous Solution Pen-injector 06/18/2020 12:00:00 AM EDT aborted Sensor 3 ML in sulin glargine 100 UNT/ML Pen Injector [Basaglar] [place] ([facility]) gabapentin 300 MG Oral Capsule Gabapentin 300 MG Oral Capsule Gabapentin 300 MG Oral Capsule 06/18/2020 12:00:00 AM EDT 1 abort ed gabapentin 300 MG Oral Capsule [place] ([facility]) 200 ACTUAT Albuterol 0.09 MG/ACTUAT Mete red Dose Inhaler [Ventolin] Ventolin HFA 108 (90 Base) MCG/ACT Inhalation Aerosol Solution Ventolin HFA 108 (90 Base) MCG/ACT Inhalation Aerosol Solution 06/04/2020 12:00:00 AM EDT 18 aborted [id number] 200 ACTUAT albuterol 0.09 MG/ACTUAT Metered Dose Inhaler [Ventolin] [facility]) Riboflavin 400 MG Oral Tablet Riboflavin 400 MG Oral Tablet 06/04/2020 12:00:00 AM EDT 1 aborted riboflavin 400 M G Oral Tablet [place] ([facility]) 12 HR Bupropion Hydrochloride 100 MG Ext ended Release Oral Tablet buPROPion HCl ER (SR) 100 MG Oral Tablet Extended Release 12 Hour buPROPion HCl ER (SR) 100 MG Oral Tablet Extended Release 12 Hour 06/04/2020 12:00:00 AM EDT aborted 12 HR bupropion hydrochloride 10 0 MG Extended Release Oral Tablet [facility]) cetirizine hydrochloride 10 MG Oral Tablet Cetirizine HCl 10 MG Oral Tablet Cetirizine HCl 10 MG Oral Tablet 06/04/2020 12:00:00 AM EDT aborted cetirizine hydrochloride 10 MG Oral Tablet [place] ([facility]) Fenofibrate 48 MG Oral Tablet Fenofibrate 48 MG Oral Tablet 06/04/2020 12:00:00 AM EDT aborted fenofibrate 48 M G Oral Tablet [place] ([facility]) Cholecalciferol 1000 UNT Oral Capsule Vitamin D3 25 MC G (1000 UT) Oral Capsule Vitamin D3 25 MCG (1000 UT) Oral Capsule 06/04/2020 12:00:00 AM EDT aborted cholecalciferol 0.025 MG Oral Ca psule [place] ([facility]) Fluticasone Propionate 50 MCG/ACT Nasal Suspension Flu ticasone Propionate 50 MCG/ACT Nasal Suspension 06/04/2020 12:00:00 AM EDT 2 aborted fluticasone propionate 0.05 MG/ACTUAT Metered Dose Nasal [place] [facility]) Sumatriptan 25 MG Oral Tablet SUMAtriptan Succinate 25 MG Oral Tablet SUMAtriptan Succinate 25 MG Oral Tablet 06/04/2020 12:00:00 AM EDT aborted [facility]riptan 25 MG [facility] ferrous sulfate 325 MG Oral Tablet Ferrous Sulfate 325 (65 Fe) MG Oral Tablet Ferrous Sulfate 325 (65 Fe) MG Oral Tablet 06/04/2020 12:00:00 AM EDT 1 aborted ferrous sulfate 325 MG Oral Tabl et [place] ([facility]) Magnesium Oxide 400 MG Oral Tablet Magnesium Oxide 400 MG Or al Tablet 06/04/2020 12:00:00 AM EDT aborted magnes ium oxide [address] [facility]) Alendronic acid 70 MG Oral Tablet [Fosamax] Fosamax 70 MG Oral Tablet Fosamax 70 MG Oral Tablet 06/04/2020 12:00:00 AM EDT ab orted alendronic acid 70 MG Oral Tablet [Fosamax] [facility]) 7 ACTUAT umeclidinium 0.0625 MG/ACTUAT D ry Powder Inhaler [Incruse] Incruse Ellipta 62.5 MCG/INH Inhalation Aerosol Powder Breath Activated Incruse Ellipta 62.5 MCG/INH Inhalation Aerosol Powder Breath Activated 06/03/2020 12:00:00 AM EDT aborted 7 ACTUAT umeclidinium 0.0625 MG/ACTUAT Dry Powder Inhaler [Incruse] [facility]) Multivitamins Oral Capsule Multivitamins Oral Capsule 2019 12:00:00 AM EDT 1 [facility] calcium polycarbophil 625 MG Oral Tablet [FiberCon] Fi berCon 625 MG Oral Tablet FiberCon 625 MG Oral Tablet 06/03/2020 12:00:00 AM EDT aborted calcium polycarbophil 625 MG Oral Tablet [FiberCon] [facility]) Simvastatin 40 MG Oral Tablet Simvastatin 40 MG Oral Tablet 05/29/2020 12:00:00 AM EDT 1 aborted simvastatin 40 M G Oral Tablet [facility]) Omeprazole 20 MG Delayed Release Oral Ca psule Omeprazole 20 MG Oral Capsule Delayed Release Omeprazole 20 MG Oral Capsule Delayed Release 05/03/20 12:00:00 AM EDT aborted omeprazole 20 MG Delayed Release Oral Capsule [facility]) carbamide peroxide 65 MG/ML Otic Solution [Debrox] Daylin cosme 6.5% Otic Solution Debrox 6.5% Otic Solution 03/05/2020 12:00:00 AM EDT aborted carbamide peroxide 65 MG/ML Otic Solution [Debrox] [place] ([facility]) Acamprosate 333 MG Oral Tablet Acamprosate 333 MG Oral Table t 01/11/2020 12:00:00 AM EST aborted Acampro sate [place] ([facility]) dapagliflozin 5 MG Oral Tablet [Farxiga] Farxiga 5 MG Oral Tablet Farxiga 5 MG Oral Tablet 12/12/2019 12:00:00 AM EST aborte d dapagliflozin 5 MG Oral Tablet [Farxiga] [place] ([facility]) Bydureon BCise 2 MG/0.85ML Subcutaneous Auto-injector Bydureon BCise 2 MG/0.85ML Subcutaneous Auto-injector 12/12/2019 12:00:00 AM EST aborted 0.85 ML exenatide 2.35 MG/ML Auto-Injector [Bydureon] [place] ([facility]) BD Pen Needle Micro U/F 32G X 6 MM Miscellaneous BD Pe n Needle Micro U/F 32G X 6 MM Miscellaneous 12/04/2019 12:00:00 AM EST aborted BD Pen Needle Micro U/F [place] ([facility]) POLYETHYLENE GLYCOL 3350 142 MG/ML Oral Solution [Kalani lax] MiraLax Oral Powder MiraLax Oral Powder 04/04/2019 12:00:00 AM EDT aborted polyethylene glycol 3350 14554 MG Powder for Oral Solution [Miralax] [place] ([facility]) quetiapine 50 MG Oral Tablet [Seroquel] SEROquel 50MG Oral Tablet SEROquel 50MG Oral Tablet 01/05/2019 12:00:00 AM EST aborte d quetiapine 50 MG Oral Tablet [Seroquel] [place] ([facility]) Insurance Providers Payer name Policy type / Coverage type Policy ID Covered alliance party ID Covered alliance party's relationship to vallejo Policy [place] Plan Information Medicare [place] of [place] Medicare Primary [id number] Self 0 MEDICARE [id number] SP [id number] Medicare [place] of [place] Medicare Primary 0 [id number] Self 0 Medicare [place] of [place] Medicare Primary 0 [id number] Self 0 Medicare Part B of [facility] Medicare Primary 0 [id number] Self 0 Medicare Part B of [facility] Medicare Primary 0 [id number] Self 0 Medicare Part B of [facility] Medicare Primary 0 [id number] Self 0 Medicare Part B of [facility] Medicare Primary 0 [id number] Self 0 Medicare Part B of [facility] Medicare Primary 0 [id number] Self 0 Medicare Part B of [facility] Medicare Primary 0 [id number] Self 0 Medicare Part B of [facility] Medicare Primary 0 [id number] Self 0 MEDICARE A [id number] Self [id number] MEDICARE [id number] SP [id number] Medicare Part B of [facility] Medicare Primary 0 [id number] Self 0 Medicare Part B of [facility] Medicare Primary 0 [id number] Self 0 MEDICARE [id number] SP [id number] MEDICARE [id number] SP [id number] MEDICAID [id number] SP [id number] MEDICAID M [id number] Self [id number] MEDICAID [id number] SP [id number] MEDICAID [id number] SP [id number] MEDICAID [id number] SP [id number] MEDICAID [id number] SP [id number] MEDICAID [id number] SP [id number] MEDICAID [id number] SP [id number] MEDICAID [id number] SP [id number] MEDICAID [id number] SP [id number] Medicare Part B of [facility] Other 0 [id number] Self 0 Medicaid of [place] Supplemental Policy 0 [id number] Self 0 Medicare Part B of [facility] Other 0 [id number] Self 0 Medicaid [place] Supplemental Policy 0 [id number] Self 0 Medicare Part B of [facility] Other 0 [id number] Self 0 [place] Supplemental Policy 0 [id number] Self 0 Medicare Part B of [facility] Other 0 [id number] Self 0 [place] Supplemental Policy 0 [id number] Self 0 Medicare Part B of [facility] Other 0 [id number] Self 0 [place] Supplemental Policy 0 [id number] Self 0 Medicare Part B of [facility] Other 0 [id number] Self 0 [place] Supplemental Policy 0 [id number] Self 0 Medicare Part B of [facility] Other 0 [id number] Self 0 [place] Supplemental Policy 0 [id number] Self 0 Medicare Part B of [facility] Other 0 [id number] Self 0 [place] Supplemental Policy 0 [id number] Self 0 Medicare Part B of [facility] Other 0 [id number] Self 0 [place] Supplemental Policy 0 [id number] Self 0 Medicare Part B of [facility] Other 0 [id number] Self 0 [place] Supplemental Policy 0 [id number] Self 0 Medicare Part B of [facility] Other 0 [id number] Self 0 [place] Supplemental Policy 0 [id number] Self 0 Medicare Part B of [facility] Other 0 [id number] Self 0 [place] Supplemental Policy 0 [id number] Self 0 Medicare Part B of [facility] Other 0 [id number] Self 0 MEDICAID [id number] SP [id number] Medicaid of [place] Supplemental Policy 0 [id number] Self 0 Medicare Part B of [facility] Other 0 [id number] Self 0 [place] Supplemental Policy 0 [id number] Self 0 Medicare Part B of [facility] Other 0 [id number] Self 0 [place] Supplemental Policy 0 [id number] Self 0 Medicare Part B of [facility] Other 0 [id number] Self 0 MEDICARE C [id number] S [id number] MEDICAID M [id number] S [id number] Medicaid of [place] Supplemental Policy 0 [id number] Self 0 Medicare Part B of [facility] Other 0 [id number] Self 0 [place] Supplemental Policy 0 [id number] Self 0 Medicare Part B of [facility] Other 0 [id number] Self 0 [place] Supplemental Policy 0 [id number] Self 0 Medicare Part B of [facility] Other 0 [id number] Self 0 [place] Supplemental Policy 0 [id number] Self 0 Medicare Part B of [facility] Other 0 [id number] Self 0 [place] Supplemental Policy 0 [id number] Self 0 Medicare Part B of [facility] Other 0 [id number] Self 0 [place] Supplemental Policy 0 [id number] Self 0 Medicare Part B of [facility] Other 0 [id number] Self 0 [place] Supplemental Policy 0 [id number] Self 0 Medicare Part B of [facility] Other 0 [id number] Self 0 MEDICARE [place] [id number] Medicaid [place] Supplemental Policy 0 [id number] Self 0 Medicare Part B of [facility] Other 0 [id number] Self 0 [place] Supplemental Policy 0 [id number] Self 0 Medicare Part B of [facility] Other 0 [id number] Self 0 Medicaid [place] Supplemental Policy 0 [id number] Self 0 Medicare Part B of [facility] Other 0 [id number] Self 0 ANSI-Medicaid [id number] ANSI-Medicare Part B [id number] Medicaid [facility] Part B [id number] Self [id number] [place] Primary [id number] Self [id number] Medicaid [place] Med[place] Part [place] [id number] Self [id number] Medicare [place]/[facility] Medicare Primary [id number] Self [id number] Medicaid [place] [id number] Self [id number] [place] Primary [id number] Self [id number] MEDICARE [id number] ANSI-Medicaid [id number] ANSI-Medicare Part B [id number] ANSI-Medicaid [id number] ANSI-Medicare Part B [id number] Medicaid [facility] Supplemental Policy 0 [id number] Self 0 Medicare Part B [facility] Other 0 [id number] Self 0 Medicaid [place] Part [place] [id number] Self [id number] [place] Medicare Primary [id number] Self [id number] Medicaid [facility] Supplemental Policy 0 [id number] Self 0 Medicare Part B of [place] Other 0 [id number] Self 0 ANSI-Medicare Part B [id number] ANSI-Medicaid [id number] ANSI-Medicaid [id number] ANSI-Medicare Part B [id number] Medicaid [facility] Supplemental Policy 0 [id number] Self 0 Medicare Part B [facility] Other 0 [id number] Self 0 Medicaid [facility] Supplemental Policy 0 [id number] Self 0 Medicare Part B [facility] Other 0 [id number] Self 0 Medicaid [facility] Supplemental Policy 0 [id number] Self 0 Medicare Part B [place] Other 0 [id number] Self 0 ANSI-Medicare Part B [id number] ANSI-Medicaid [id number] Medicare [facility] Part B [id number] .936.92858.0 Self [id number] Medicaid Medicaid [id number] S elf [id number] Medicare Medicare Primary [id number] 2.0.1.520515.3.227. 99.936.28218.0 Self [id number] Medicaid [place] Medigap Part B [id number] .8646.03292.0 Self [id number] Medicare [place] Medicare Primary [id number] 2.0.1.720931.3.227.99.8646.42781.0 Self [id number] ANSI-Medicaid [id number] ANSI-Medicare Part B [id number] Medicaid [facility] Supplemental Policy 0 [id number] Self 0 Medicare Part B [facility] Other 0 [id number] Self 0 ANSI-Medicare Part B [id number] ANSI-Medicaid [id number] Medicaid [facility] Supplemental Policy 0 [id number] Self 0 ANSI-Medicaid [id number] ANSI-Medicare Part B [id number] Medicare [place] Medigap Part B [id number] 2.0.1.059717.3.227.99 .936.35057.0 Self [id number] Medicaid Medicaid [id number] 2.0.1.191424.3.227.99.936.87869.0 S elf [id number] Medicare Medicare Primary [id number] 2.0.1.313478.3.227. 99.936.29229.0 Self [id number] Medicaid [facility] Supplemental Policy 0 [id number] Self 0 ANSI-Medicaid [id number] ANSI-Medicare Part B [id number] Medicaid [facility] Supplemental Policy 0 [id number] Self [facility] [id number] 2.0.1.328472.3.227.99 .936.84918.0 Self [id number] Medicaid Medicaid [id number]36.30972.0 S elf [id number] Medicare Medicare Primary [id number] 2.840.1.665684.3.227. 99.936.05299.0 Self [id number] MEDICARE C [id number] S [id number] Medicaid [facility] Part B [id number] .8646.63374.0 Self [id number] Medicare [place]/[facility] Medicare Primary [id number] 2.0.1.415539.3.227.99.8646.78108.0 Self [id number] Medicaid [facility] Supplemental Policy 0 [id number] Self 0 Medicaid [place] Part B [id number] 2.0.1.495677.3.227.99 .8646.48036.0 Self [id number] Medicare [place] Medicare Primary [id number].8646.67597.0 Self [id number] Medicaid [facility] Supplemental Policy 0 [id number] Self 0 [place] Supplemental Policy 0 [id number] Self 0 [place] Supplemental Policy 0 [id number] Self 0 Medicaid [place] Part [place] [id number] 2.16.840.1.017567.3.227.99 .8646.22585.0 Self [id number] Medicare [place] Medicare Primary [id number] 2.16.840.1.498057.3.227.99.8646.71802.0 Self [id number] Medicare [place] Medigap Part B [id number] 2.16.840.1.267432.3.227.99 .936.55325.0 Self [id number] Medicaid Medicaid [id number] 2.16.840.1.744300.3.227.99.936.42441.0 S elf [id number] Medicare Medicare Primary [id number] 2.16840.1.132172.3.227. 99.936.95046.0 Self [id number] [facility] MED[facility] PART B C [id number] S [id number] Medicaid [place] Med[place] Part B [id number] 2.16.840.1.434019.3.227.99 .8646.10390.0 Self [id number] Medicare [place] Medicare Primary [id number] 2.16.840.1.937398.3.227.99.8646.99006.0 Self [id number] Medicaid [place] Part [place] [id number] 2.16.840.1.900497.3.227.99 .8646.53774.0 Self [id number] Medicare [place] Medicare Primary [id number] 2.16.840.1.983810.3.227.99.8646.33266.0 Self [id number] Medicaid [place] Part [place] [id number] 2.16.840.1.534122.3.227.99 .8646.69155.0 Self [id number] Medicare [place] Medicare Primary [id number] [id number] Self [id number] [place] [id number] .[id number] Self [id number] Medicare Natl Gov't Servi Medicare Primary [id number] Self 1 [id number] MEDICARE [id number] Medicaid [facility] Supplemental Policy 0 [id number] Self 0 Medicaid [facility] Supplemental Policy 0 [id number] Self 0 Medicare Medicare Primary [id number]. [id number] Self [id number] MEDICAID-O/P [id number] MEDICARE PART A -O/P [id number] 18 [id number] Medicaid [facility] Supplemental Policy 0 [id number] Self 0 Medicaid of [place] Supplemental Policy 0 [id number] Self 0 [facility] Network Supplemental Policy 0 [id number] Self 0 MEDICAID [id number] Medicaid [place] 2551 Self Medicare Natl Gov't Servi Medicare Primary 2550 Self MEDICARE -O/P [id number] 18 [id number] MEDICARE P [id number] S [id number] MEDICAID - CLINIC [id number] MEDICARE PART A-CLINIC [id number] 18 [id number] A [facility] MEDICAID [id number] MEDICARE [id number] SP [id number] U92 MEDICARE CO [id number] 18 [id number] MEDICAID [id number] Medicaid of [place] Supplemental Policy 0 [id number] Self 0 [place] Other 0 [id number] Self 0 [place] 0 [id number] Self 0 [place] Other 0 [id number] Self 0 MEDICAID HEA [id number] S [id number] MEDICARE MCA [id number] S [id number] MEDICARE MCA [id number] S [id number] [place] of [place] Supplemental Policy 0 [id number] Self 0 Medicare Part B of [facility] Other 0 [id number] Self 0 [place] Supplemental Policy 0 [id number] Self 0 Medicare Part B of [facility] Other 0 [id number] Self 0 [place] of [place] Supplemental Policy 0 [id number] Self 0 Medicare Part B of [facility] Other 0 [id number] Self 0 EMEDNY [id number] SP [id number] [place] of [place] Supplemental Policy 0 [id number] Self 0 Medicare Part B of [facility] Other 0 [id number] Self 0 [place] of [place] Supplemental Policy 0 [id number] Self 0 Medicare Part B of [facility] Other 0 [id number] Self 0 [place] Supplemental Policy 0 [id number] Self 0 Medicare Part B of [facility] 0 [id number] Self 0 Medicaid of [place] Supplemental Policy 0 [id number] Self 0 Medicare Part B of [facility] 0 [id number] Self 0 Medicaid of [facility] Policy 0 [id number] Self 0 Problems, Conditions, and Diagnoses Code Display Name Description Problem Type Effective Dates Data Source(s) F429 Obsessive-compulsive disorder, unspecifi ed Obsessive-compulsive disorder, unspecified Diagnosis 07/29/2021 03:43:00 PM [facility] F70 Mild intellectual disabilities Mild intellectual disab ilities Diagnosis 07/29/2021 03:43:00 PM [facility] 593.3 Ureteral Stricture Ureteral Stricture Problem 12:00:00 AM EDT [place] ([facility]) 585.9 Chronic Renal Failure Chronic Renal Failure Problem 07/25/2021 12:00:00 AM EDT [facility] ([facility]) [id number] 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, 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) 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 Problem 07/25/2021 12:00:00 AM EDT [facility] ([facility]) 593.3 Ureteral Stricture Ureteral Stricture Problem 12:00:00 AM EDT [facility] ([facility]) 585.9 Chronic Renal Failure Chronic Renal Failure Problem 07/25/2021 12:00:00 AM EDT [facility] ([facility]) 970578163 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, 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) 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 Problem 07/25/2021 12:00:00 AM EDT [facility] ([facility]) 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 04/10/2021 12:00:00 AM EDT [facility] ([facility]) 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 04/10/2021 12:00:00 AM EDT [facility] ([facility]) 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 04/10/2021 12:00:00 AM EDT [facility] ([facility]) 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 04/10/2021 12:00:00 AM EDT [facility] ([facility]) 137440311 Recurrent falls Recurrent falls Problem 02/10/2021 12:0 0:00 AM EDT [facility] ([facility] ) 97909040 Unsteady when walking Unsteady when walking Problem 02/10/2021 12:00:00 AM EDT [facility] ([facility] ) T14.90XA Muscle Hematoma Muscle Hematoma Problem 12/10/2020 12:0 0:00 AM EST [facility] ([facility]) T14.90XA Muscle Hematoma Muscle Hematoma Problem 12/10/2020 12:0 0:00 AM EST [facility] ([facility]) T14.90XA Muscle Hematoma Muscle Hematoma Problem 12/10/2020 12:0 0:00 AM EST [facility] ([facility]) T14.90XA Muscle Hematoma Muscle Hematoma Problem 12/10/2020 12:0 0:00 AM EST [facility] ([facility]) T14.90XA Muscle Hematoma Muscle Hematoma Problem 12/10/2020 12:0 0:00 AM EST [facility] ([facility]) T14.90XA Muscle Hematoma Muscle Hematoma Problem 12/10/2020 12:0 0:00 AM EST [facility] ([facility]) T14.90XA Muscle Hematoma Muscle Hematoma Problem 12/10/2020 12:0 0:00 AM EST [facility] ([facility]) T14.90XA Muscle Hematoma Muscle Hematoma Problem 12/10/2020 12:0 0:00 AM EST [facility] ([facility]) T14.90XA Muscle Hematoma Muscle Hematoma Problem 12/10/2020 12:0 0:00 AM EST [facility] ([facility]) T14.90XA Muscle Hematoma Muscle Hematoma Problem 12/10/2020 12:0 0:00 AM EST [facility] ([facility]) T14.90XA Muscle Hematoma Muscle Hematoma Problem 12/10/2020 12:0 0:00 AM EST [facility] ([facility]) T14.90XA Muscle Hematoma Muscle Hematoma Problem 12/10/2020 12:0 0:00 AM EST [facility] ([facility]) 788.31 Urge Incontinence of Urine Urge Incontinence of Urine Finding 10/03/2020 12:00:00 AM EST [facility] ([facility]) F42.9 Obsessive Compulsive Disorder Obsessive Compulsive Dis order Problem 10/03/2020 12:00:00 AM EST [facility] ([facility]) 788.31 Urge Incontinence of Urine Urge Incontinence of Urine Finding 10/03/2020 12:00:00 AM EST [facility] ([facility]) F42.9 Obsessive Compulsive Disorder Obsessive Compulsive Dis order Problem 10/03/2020 12:00:00 AM EST [facility] ([facility]) 788.31 Urge Incontinence of Urine Urge Incontinence of Urine Finding 10/03/2020 12:00:00 AM EST [facility] ([facility]) F42.9 Obsessive Compulsive Disorder Obsessive Compulsive Dis order Problem 10/03/2020 12:00:00 AM EST [facility] ([facility]) 788.31 Urge Incontinence of Urine Urge Incontinence of Urine Finding 10/03/2020 12:00:00 AM EST [facility] ([facility]) F42.9 Obsessive Compulsive Disorder Obsessive Compulsive Dis order Problem 10/03/2020 12:00:00 AM EST [facility] ([facility]) 788.31 Urge Incontinence of Urine Urge Incontinence of Urine Finding 10/03/2020 12:00:00 AM EST [facility] ([facility]) F42.9 Obsessive Compulsive Disorder Obsessive Compulsive Dis order Problem 10/03/2020 12:00:00 AM EST [facility] ([facility]) 788.31 Urge Incontinence of Urine Urge Incontinence of Urine Finding 10/03/2020 12:00:00 AM EST [facility] ([facility]) F42.9 Obsessive Compulsive Disorder Obsessive Compulsive Dis order Problem 10/03/2020 12:00:00 AM EST [facility] ([facility]) 788.31 Urge Incontinence of Urine Urge Incontinence of Urine Finding 10/03/2020 12:00:00 AM EST [facility] ([facility]) F42.9 Obsessive Compulsive Disorder Obsessive Compulsive Dis order Problem 10/03/2020 12:00:00 AM EST [facility] ([facility]) 788.31 Urge Incontinence of Urine Urge Incontinence of Urine Finding 10/03/2020 12:00:00 AM EST [facility] ([facility]) F42.9 Obsessive Compulsive Disorder Obsessive Compulsive Dis order Problem 10/03/2020 12:00:00 AM EST [facility] ([facility]) 788.31 Urge Incontinence of Urine Urge Incontinence of Urine Finding 10/03/2020 12:00:00 AM EST [facility] ([facility]) F42.9 Obsessive Compulsive Disorder Obsessive Compulsive Dis order Problem 10/03/2020 12:00:00 AM EST [facility] ([facility]) 788.31 Urge Incontinence of Urine Urge Incontinence of Urine Finding 10/03/2020 12:00:00 AM EST [facility] ([facility]) F42.9 Obsessive Compulsive Disorder Obsessive Compulsive Dis order Problem 10/03/2020 12:00:00 AM EST [facility] ([facility]) 788.31 Urge Incontinence of Urine Urge Incontinence of Urine Finding 10/03/2020 12:00:00 AM [facility] ([facility]) F42.9 Obsessive Compulsive Disorder Obsessive Compulsive Dis order Problem 10/03/2020 12:00:00 AM [facility] ([facility]) 788.31 Urge Incontinence of Urine Urge Incontinence of Urine Finding 10/03/2020 12:00:00 AM [facility] ([facility]) F42.9 Obsessive Compulsive Disorder Obsessive Compulsive Dis order Problem 10/03/2020 12:00:00 AM [facility] ([facility]) 788.31 Urge Incontinence of Urine Urge Incontinence of Urine Finding 10/03/2020 12:00:00 AM [facility] ([facility]) F42.9 Obsessive Compulsive Disorder Obsessive Compulsive Dis order Problem 10/03/2020 12:00:[address] [facility]) Surgeries/Procedures Procedure Description Date Indications Data Source(s) OFFICE OUTPATIENT VISIT 25 MINUTES 08/19/2021 12:00:00 AM EDT [facility] ([facility] ) Diabetic Foot Exam 08/01/2021 12:00:00 AM EDT [facility] ([facility]) OFFICE OUTPATIENT VISIT 10 MINUTES 08/01/2021 12:00:00 AM EDT [facility] ([facility] OFFICE OUTPATIENT VISIT 40 MINUTES 07/30/2021 12:00:00 AM EDT [facility] ([facility]) OFFICE OUTPATIENT VISIT 25 MINUTES 07/30/2021 12:00:00 AM EDT [facility] ([facility]) OFFICE OUTPATIENT VISIT 25 MINUTES 07/29/2021 12:00:00 AM EDT [facility] ([facility]) ELECTROCARDIOGRAM, COMPLETE (EKG) ELECTROCARDIOGRAM, COMPLET E (EKG) 07/25/2021 12:00:00 AM [facility] ([facility]) OFFICE OUTPATIENT VISIT 15 MINUTES 07/21/2021 12:00:00 AM EDT [facility] ([facility] ) HbA1c (Glycosolated) (waived laboratory) HbA1c (Glycos olated) (waived laboratory) 06/12/2021 12:00:00 AM EDT [facility] ([facility]) GLUCOSE (waived laboratory) GLUCOSE (waived laboratory) 05/23 [facility] COLLECTION VENOUS BLOOD VENIPUNCTURE BLOOD DRAW 06/12/2021 12:00: 00 AM [facility] ([facility]) PHYSICIAN TELEPHONE EVALUATION 11-20 MIN 05/20/2021 12 :00:00 AM [facility] OFFICE OUTPATIENT NEW 60 MINUTES 05/06/2021 12:00:00 A M EDT [facility]) MYOCARDIAL SPECT MULTIPLE STUDIES 04/02/2021 12:00:00 AM EDT [facility]John Ch[facility]) OFFICE OUTPATIENT VISIT 10 MINUTES 04/01/2021 12:00:00 AM EDT [facility] OFFICE OUTPATIENT VISIT 40 MINUTES 03/31/2021 12:00:00 AM EDT [facility] ) ECG ROUTINE ECG W/LEAST 12 LDS W/I&R 03/26/2021 12:00: 00 AM EDT [facility]John Chavez [facility]) ECHO TTHRC R-T 2D W/WOM-MODE COMPL SPEC&COLR DOP 03/26 12:00:00 AM EDT [facility]John Chavez [facility]) OFFICE OUTPATIENT VISIT 25 MINUTES 03/25/2021 12:00:00 AM EDT [facility]) MRI BRAIN BRAIN STEM W/O CONTRAST MATERIAL 03/05/2021 12:00:00 AM EDT [facility] ([facility] ) MRI BRAIN BRAIN STEM W/O CONTRAST MATERIAL 03/05/2021 12:00:00 AM EDT [facility] ([facility] ) MRI SPINAL CANAL CERVICAL W/O CONTRAST MATRL 12:00:00 AM EDT [facility] ([facility] ) MRI SPINAL CANAL CERVICAL W/O CONTRAST MATRL 12:00:00 AM EDT [facility] ) Needle electromyography, each extremity, with related paraspinal areas, when performed, done with nerve conduction, amplitude and latency/velocity study; complete, five or more muscles studied, innervated by three or more nerves or four or more spinal levels (list separately in addition to the code for primary procedure). 02/26/2021 12:00:00 AM EDT [facility] ([facility] ) Needle electromyography, each extremity, with related paraspinal areas, when performed, done with nerve conduction, amplitude and latency/velocity study; complete, five or more muscles studied, innervated by three or more nerves or four or more spinal levels (list separately in addition to the code for primary procedure). 02/26/2021 12:00:00 AM EDT [facility] ([facility] ) Nerve Conduction 9-10 Studies 02/26/2021 12:00:00 AM E DT [facility] ([facility] ) OFFICE OUTPATIENT VISIT 25 MINUTES 02/20/2021 12:00:00 AM EDT [facility] ([facility] ) Needle electromyography, each extremity, with related paraspinal areas, when performed, done with nerve conduction, amplitude and latency/velocity study; complete, five or more muscles studied, innervated by three or more nerves or four or more spinal levels (list separately in addition to the code for primary procedure). 02/12/2021 12:00:00 AM EDT [facility] ([facility] ) Needle electromyography, each extremity, with related paraspinal areas, when performed, done with nerve conduction, amplitude and latency/velocity study; complete, five or more muscles studied, innervated by three or more nerves or four or more spinal levels (list separately in addition to the code for primary procedure). 02/12/2021 12:00:00 AM EDT [facility] ([facility] ) Nerve Conduction 9-10 Studies 02/12/2021 12:00:00 AM E DT [facility] ([facility] ) OFFICE OUTPATIENT NEW 45 MINUTES 02/10/2021 12:00:00 A M EDT [facility] ([facility] ) Annual wellness visit, includes a person alized prevention plan of service (pps), subsequent visit MEDICARE ANNUAL WELLNESS VISIT (SUBSEQUENT) 01/13/2021 12:00:00 AM [facility] ([facility]) Annual wellness visit, includes a person alized prevention plan of service (pps), subsequent visit MEDICARE ANNUAL WELLNESS VISIT (SUBSEQUENT) 01/13/2021 12:00:00 AM EST [place] ([facility]) Results ID Date Data Source [id number] 08/19/2021 10:40:00 AM EDT [facility] ([facility]) Name Value Range Interpretation Code Description Data Cinthia rce(s) Supporting Document(s) Glucose [Mass/volume] in Serum or Plasma 188 [facility]) Hemoglobin A1c/Hemoglobin.total in Blood 7.0 [facility]) ID Date Data Source [id number] 08/15/2021 10:20:00 AM EDT [facility] Name Value Range Interpretation Code Description Data Cinthia rce(s) Supporting Document(s) SARS coronavirus 2 RNA [Presence] in Res piratory specimen by KB with probe detection NEGATIVE [facility] This lab was ordered by [facility] a nd reported by . ID Date Data Source [id number] 08/02/2021 11:35:00 AM EDT [facility] ([facility]) Name Value Range Interpretation Code Description Data Cinthia rce(s) Supporting Document(s) Laboratory test finding (navigational concept) Laboratory test result [facility]) ASSAY INFORMATION: Real Time RT-PCR NOTE: The COVID-19 assay has been cleared by the U.S. Food and Drug Administration under the Emergency Use Authorization (EUA). [facility] are designated as high complexity laboratories by the Clinical Laboratory Improvement Amendments of 1988(CLIA) and are qualified to perform this test. Not Detected ID Date Data Source [id number] 08/02/2021 11:35:00 AM EDT [facility] Name Value Range Interpretation Code Description Data Cinthia rce(s) Supporting Document(s) SARS-CoV-2 (COVID-19) RNA [Presence] in Respiratory specimen by KB with probe detection Not Detected [facility] This lab was ordered by [facility] and reported by [employer] ID Date Data Source [id number] 07/30/2021 05:09:00 PM EDT [facility]) Name Value Range Interpretation Code Description Data Cinthia rce(s) Supporting Document(s) Miscellaneous Laboratory test result [facility] ([facility]) MRSA/MSSA nasal swab Methicillin resistant Staphylococcus aur eus (MRSA) DNA [Presence] in Unspecified specimen by Probe and target amplification method Laboratory test result [facility] ([facility]) MRSA/MSSA nasal swab ID Date Data Source [id number] 08/01/2021 01:33:40 PM EDT [facility] Name Value Range Interpretation Code Description Data Cinthia rce(s) Supporting Document(s) SPECIMEN DESCRIPTION Laborator y [facility] Corrected on 08/01 AT 1204: Previously r eported as THROAT SWAB METH RES STAPH AUR (NEG) Laboratory [facility] ID Date Data Source [id number] 06/20/2021 08:26:00 AM EDT [facility] DATE OF EXAM: 06/19/2021MRI BRAIN AND PI TUITARY WITH AND WITHOUT CONTRAST CLINICAL STATEMENT: Benign neoplasm of the pituitary gland TECHNIQUE: Multiplanar, multisequential imaging of the brain and pituitary gland was performed with and without the administration of intravenous contrast. The patient was administered 8 mL ProHance intravenously/10 mL vial. COMPARISON: None FINDINGS: An expansile hypoenhancing lesion is seen within the sella. This lesion measures approximately 1.7 x 1.9 x 1.5 cm (transverse by anterior posterior by craniocaudad dimensions). The lesion is predominantly T2 hypointen se with several very small intrinsic T2 hyperintense areas within the lesion. No significant encasement of the cavernous internal carotid artery segments is seen. No significant suprasellar component is seen. The pituitary infundibulum is midline and unremarkable in appearance. The optic chiasm is unremarkable. A right-sided craniotomy changes are noted. No suspicious intracranial enhancement or mass is seen. No acute infarct or restricted diffusion is seen. Mild FLAIR signal abnormality is seen throughout the periventricular and subcortical white matter, nonspecific however most likely sequela of chronic small vessel ischemic disease. No intra or extra-axial fluid collections are seen. The ventricles are symmetric and normal in size. Visualized orbits are unremarkable. Trace mucoperiosteal thickening is seen within the paranasal sinuses. Trace bilateral mastoid fluid is seen. IMPRESSION: Expansile sellar mass measuring up to 1.9 cm. 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 Professional interpretation performed at [facility] .End of diagnostic report for accession: [id number] Interpreted: Michell Tam MDTranscribed: 06/20/2021 08:16 AMSigned: 06/20/2021 08:26 AM Michell Tam MD [facility] ACC # [id number] BILL # [id number] 2MEM Name Value Range Interpretation Code Description Data Cinthia rce(s) Supporting Document(s) ID Date Data Source [id number] 06/12/2021 04:43:00 PM EDT [place] ([facility] Name Value Range Interpretation Code Description Data Cinthia rce(s) Supporting Document(s) Glucose [Mass/volume] in Urine collected for unspecified duration [address] [facility]) ID Date Data Source [id number] 06/12/2021 04:43:00 PM EDT [place] ([facility]) Name Value Range Interpretation Code Description Data Cinthia rce(s) Supporting Document(s) Hemoglobin A1c/Hemoglobin.total in Blood 6.9 Abnormal (applies to non-numeric results) HbA1C [place] ([facility]) ID Date Data Source [id number] 02/17/2021 03:02:00 PM EDT [place] ([facility]) Name Value Range Interpretation Code Description Data Cinthia rce(s) Supporting Document(s) Reported Physicians See Note Reported Physici ans [place] ([facility]) Note: Reported Physicians:Ordering: ANGIE MCCALL [id number], FOREST BlackburnAttending: Laura GAN To: Laura GAN To: Martha Mejia ID Date Data Source [id number] 02/17/2021 03:02:00 PM EDT [place] ([facility]) Name Value Range Interpretation Code Description Data Cinthia rce(s) Supporting Document(s) BEDSIDE GLUCOSE 108 MG/DL Normal BEDSIDE GLUCOSE [facility] ([facility]) ID Date Data Source [id number] 02/17/2021 10:51:00 AM EDT [facility] ([facility]) Name Value Range Interpretation Code Description Data Cinthia rce(s) Supporting Document(s) Reported Physicians See Note Reported Physic ans [place] ([facility]) Note: Reported Physicians:Ordering: ANGIE MCCALL [id number], FOREST BlackburnAttending: Laura GAN To: Laura GAN To: Martha Mejia ID Date Data Source [id number] 02/17/2021 10:51:00 AM EDT [facility] ([facility]) Name Value Range Interpretation Code Description Data Cinthia rce(s) Supporting Document(s) BEDSIDE GLUCOSE 111 MG/DL Normal BEDSIDE GLUCOSE [facility] ([facility]) Note: Doctor Notified ID Date Data Source [id number] 02/17/2021 08:40:00 AM EDT [facility] ([facility]) Name Value Range Interpretation Code Description Data Cinthia rce(s) Supporting Document(s) Reported Physicians See Note Reported [facility] ([facility]) Note: Reported Physicians:Ordering: Payton [id number], Ian LowryAttending: Laura GAN To: Laura GAN To: Britni Cain To: Martha Mejia ID Date Data Source [id number] 02/17/2021 08:40:00 AM EDT [facility] ([facility]) Name Value Range Interpretation Code Description Data Cinthia rce(s) Supporting Document(s) SARS COVID-19 AMPLIFICATION NEGATIVE Normal SARS COV ID-19 AMPLIFICATION [place] ([facility]) Note: A false negative result may occur if a specimen is improperly collected, transported or handled. False negative results may also occur if inadequate numbers of organisms are present in the specimen. As with any molecular test, mutations within the target regions of [employer] [employer] SARS-CoV-2 could affect primer and/or probe binding resulting in failure to detect the presence of virus. This test cannot rule out diseases caused by other bacterial or viral pathogens. DISCLAIMER: Testing was performed using the [employer] SARS-CoV-2 test. This test was developed and its performance characteristics determined by [employer]. This test has not been FDA cleared or approved. This test has been authorized by FDA under an Emergency Use Authorization (EUA). This test is only authorized for the duration of time the declaration that circumstances exist justifying the authorization of the emergency use of in vitro diagnostic tests for detection of SARS-CoV-2 virus and/or diagnosis of COVID-19 infection under section 564(b)(1) of the Act, 21 U.S.C. 360bbb-3(b)(1), unless the authorization is terminated or revoked sooner. ID Date Data Source [id number] 02/17/2021 08:40:00 AM EDT [facility] Name Value Range Interpretation Code Description Data Cinthia rce(s) Supporting Document(s) SARS coronavirus 2 RNA [Presence] in Res piratory specimen by KB with probe detection NEGATIVE [facility] This lab was ordered by [facility] a nd reported by . ID Date Data Source [id number] 02/14/2021 01:00:00 PM EDT [facility] Name Value Range Interpretation Code Description Data Cinthia rce(s) Supporting Document(s) SARS coronavirus 2 RNA Not Detected [facility] [place] This lab was ordered by [facility] and reported by [facility]. ID Date Data Source [id number] 02/11/2021 08:34:00 AM EDT [facility] Name Value Range Interpretation Code Description Data Cinthia rce(s) Supporting Document(s) Insulin-like growth factor-I [Mass/volume] in Serum or Plasma 34 7 ng/mL 57-202 [facility] ([facility]) Performed at: [address] [id number] [employer]: Houston Davidson MD, Phone: [phone] ID Date Data Source [id number] 02/11/2021 08:34:00 AM EDT [facility] ([facility]) Name Value Range Interpretation Code Description Data Cinthia rce(s) Supporting Document(s) Insulin-like growth factor-I [Mass/volume] in Serum or Plasma 34 7 ng/mL 57-202 [facility] ([facility]) Performed at: BN - [address] [id number] [employer]: Houston Davidson MD, Phone: [phone] ID Date Data Source [id number] 02/11/2021 08:31:00 AM EDT [facility] Name Value Range Interpretation Code Description Data Cinthia rce(s) Supporting Document(s) Thiamine [Mass/volume] in Blood 170.7 nmol/L 66.5-200.0 [facility] ([facility] ) Performed at: [address] [id number] [employer]er: Houston Davidson MD, Phone: [phone] Pyridoxine [Mass/volume] in Serum or Plasma 9.2 ug/L 2.0-32.8 [facility] ) Specimen Comment: Test(s) 419099-Gstsaap E(Alpha Tocopherol); 088822- Specimen Comment: Vitamin E(Gamma Tocopherol); 450914-Iaqhukf B6; 920870- Specimen Comment: Vit. B1, Whole Blood Specimen Comment: was developed and its performance characteristics Specimen Comment: [facility] It has not been cleared or approved Specimen Comment: by the Food and Drug Administration. ID Date Data Source [id number] 02/11/2021 08:31:00 AM EDT [facility] Name Value Range Interpretation Code Description Data Cinthia rce(s) Supporting Document(s) Vitamin E(Gamma Tocopherol) 0.9 mg/L 0.5-4.9 [facility] ([facility] ) Reference intervals for alpha and gamma- tocopherol determined from National Health and Nutrition Examination Survey, 1739-5409. Individuals with alpha-tocopherol levels less than 5.0 mg/L are considered vitamin E deficient. Vitamin E(Alpha Tocopherol) 12.8 mg/L 9.0-29.0 [facility] ID Date Data Source [id number] 02/11/2021 08:31:00 AM EDT [facility] Name Value Range Interpretation Code Description Data Cinthia rce(s) Supporting Document(s) Reagin Ab [Presence] in Serum by RPR Laboratory test result [facility] ) ID Date Data Source [id number] 02/11/2021 08:31:00 AM EDT [facility] ([facility] ) Name Value Range Interpretation Code Description Data Cinthia rce(s) Supporting Document(s) Vitamin B12 Level 917 pg/mL [facility] ([facility], ) VITAMIN B12 NORMAL RANGE NORMAL 247 - 911 PG/ML INDETERMINATE 211 - 246 PG/ML DEFICIENT LESS THAN 211 PG/ML Folate 6.7 ng/mL [facility] ([facility]) FOLATE NORMAL RANGE NORMAL GREATER THAN 5.4 NG/ML INDETERMINATE 3.4-5.4 NG/ML DEFICIENT LESS THAN 3.4 NG/ML ID Date Data Source [id number] 02/11/2021 08:31:00 AM EDT [facility] ([facility] ) Name Value Range Interpretation Code Description Data Cinthia rce(s) Supporting Document(s) Tfunp-0-Pcnkeitp % 4.9 % 2.9-4.9 [facility] ([facility] ) Albumin % 60.0 % 55.8-66.1 [facility] Ovcbk-2-Cbjacrzml % 11.7 % 7.1-11.8 [facility] ([facility], ) Neae-5-Vdyjeflud % 6.0 % 3.2-6.5 [facility] ([facility] ) Kqvc-2-Nhdbuwfyq % 6.8 % 4.7-7.2 [facility] Gamma Globulin % 10.6 % 11.1-18.8 [facility] Albumin 3.72 GM/DL 3.29-5.55 [facility] ([facility] ) Eezcu-2-Kkpzwmhzc 0.73 GM/DL 0.42-0.99 [facility] ([facility] ) Pmoqp-0-Wjhfscqli 0.30 GM/DL 0.17-0.41 [facility] ([facility] ) Fmnp-3-Znnimjxuh 0.42 GM/DL 0.28-0.60 [facility] ([facility] ) Ydgy-0-Uxnzumpxi 0.37 GM/DL 0.19-0.55 [facility] ([facility] ) Gamma Globulins 0.66 GM/DL 0.65-1.58 [facility] ([facility]) Spep Interpretation Laboratory test result [facility]) NO M-SPIKE(S)NOTED. Total Protein 6.2 GM/DL 6.4-8.2 [facility] ([facility]) Laboratory test finding (navigational concept) Laboratory test result [facility] ([facility]) REV'D BY O ADJAPONG ID Date Data Source [id number] 02/11/2021 08:31:00 AM EDT [facility]) Name Value Range Interpretation Code Description Data Cinthia rce(s) Supporting Document(s) Laboratory test finding (navigational concept) Laboratory test result [facility] ([facility]) REV'D BY O ADJAPONG It Serum Interpretation Laboratory test result [facility] ([facility]) NO MONOCLONAL BANDS NOTED. ID Date Data Source [id number] 02/11/2021 08:31:00 AM EDT [facility] ([facility]) Name Value Range Interpretation Code Description Data Cinthia rce(s) Supporting Document(s) Hemoglobin A1c 5.9 % [facility] ([facility]) <content>REFERENCE RANGES:</content><br/ ><content></content>
<content><=5.6% NORMAL</content>
<content>5.7-6.4% SUGGESTS IMPAIRED GLUCOSE METABOLISM/PREDIABETIC</content>
<content>>= 6.5% ABNORMAL</content>
<content></content> Estimated Average Glucose 123 mg/dL 60-110 [facility] ([facility]) ID Date Data Source [id number] 01/25/2021 11:00:00 AM EST [facility] Name Value Range Interpretation Code Description Data Cinthia rce(s) Supporting Document(s) SARS coronavirus 2 RNA Not Detected [facility] This lab was ordered by [facility] and reported by [facility]. ID Date Data Source [id number] 01/18/2021 09:18:00 AM EST [facility] ([facility]) Name Value Range Interpretation Code Description Data Cinthia rce(s) Supporting Document(s) Reported Physicians See Note Reported Physici ans [facility] ([facility]) Note: Reported Physicians:Ordering: Ellen resendiz [phone] FNPAttending: Rosanna DianeCopy To: Rosanna DianeCopy To: Keenan Arteaga To: Martha Mejia ID Date Data Source [id number] 01/18/2021 09:18:00 AM EST [facility] ([facility]) Name Value Range Interpretation Code Description Data Cinthia rce(s) Supporting Document(s) THYROID STIMULATING HORMONE 1.010 uIU/ML Normal THYROI D STIMULATING HORMONE [facility]) FREE T4 1.14 NG/DL Normal FREE T4 [place] ([facility]) ID Date Data Source [id number] 01/18/2021 09:18:00 AM EST [place] ([facility]) Name Value Range Interpretation Code Description Data Cinthia rce(s) Supporting Document(s) Reported Physicians See Note Reported Physici ans [facility]) Note: Reported Physicians:Ordering: Ellen resendiz [phone], Jordan FNPAttending: Rosanna DianeCopy To: Rosanna DianeCopy To: Keenan Arteaga To: Martha Mejia ID Date Data Source [id number] 01/18/2021 09:18:00 AM EST [place] ([facility]) Name Value Range Interpretation Code Description Data [facility] rce(s) Supporting Document(s) RED BLOOD COUNT 4.76 6/uL Normal [facility] Hemoglobin [Mass/volume] in Mixed venous blood by Oximetry 14.4 g/d l Normal HEMOGLOBIN [facility]) WHITE BLOOD COUNT 3.9 3/uL Below low normal WHITE BLOOD COUNT [facility]) MEAN CORPUSCULAR VOLUME 95.0 fl Normal MEAN CORPUSC ULAR VOLUME [facility]) Hematocrit [Pure volume fraction] of Blood by Automated count 45.2 % Normal HEMATOCRIT [facility]) MEAN CORPUSCULAR HEMOGLOBIN 30.3 pg Normal MEAN COR PUSCULAR HEMOGLOBIN [facility]) PLATELET COUNT, AUTOMATED 286 3/uL Normal PLATELET C OUNT, AUTOMATED [facility]) MEAN CORPUSCULAR HGB CONC 31.9 g/dl Below low caty l MEAN CORPUSCULAR HGB CONC [place] ([facility]) RED CELL DISTRIBUTION WIDTH 13.2 % Normal RED CELL DISTRIBUTION WIDTH [facility]) NUCLEATED RED BLOOD CELL % 0.0 % Normal NUCLEATED RED BLOOD CELL % [facility]) ID Date Data Source [id number] 01/18/2021 09:18:00 AM EST [facility] ([facility]) Name Value Range Interpretation Code Description Data Cinthia rce(s) Supporting Document(s) Reported Physicians See Note Reported Physici ans [place] ([facility]) Note: Reported Physicians:Ordering: Ellen Blanco [phone], Jordan FNPAttending: Rosanna DianeCopy To: Rosanna DianeCopmartín To: Keenan Arteaga To: Martha Mejia ID Date Data Source [id number] 01/18/2021 09:18:00 AM EST [facility] ([facility]) Name Value Range Interpretation Code Description Data Cinthia rce(s) Supporting Document(s) CPK CREATINE PHOSPHOKINASE 64 U/L Normal CPK CREAT INE PHOSPHOKINASE [facility]) ID Date Data Source [id number] 01/18/2021 09:18:00 AM EST [place] ([facility]) Name Value Range Interpretation Code Description Data Cinthia rce(s) Supporting Document(s) Reported Physicians See Note Reported Physici ans [place] ([facility]) Note: Reported Physicians:Ordering: Ellen resendiz [id number], Jordan FNPAttending: Benedicto JamaicaCopy To: Eliecer DianeicaCopy To: Keenan Arteaga To: Martha Mejia ID Date Data Source [id number] 01/18/2021 09:18:00 AM EST [facility] ([facility]) Name Value Range Interpretation Code Description Data Cinthia rce(s) Supporting Document(s) CK 1 (BB) 0 % Normal CK 1 (BB) [facility]) Note: Performed at: RN - [facility] [address], [place], [place] [id number] [employer]er: Roxy Sheth MD, Phone: [phone] CK TOTAL 64 U/L Normal CK TOTAL [facility] ([facility]) CK 2 (MB) 0 % Normal CK 2 (MB) [facility] ([facility]) CK 3 (MM) 100 % Normal CK 3 (MM) [facility] ([facility]) CK MACRO I PERCENT 0 % Normal CK MACRO I PERCEN T [facility] ([facility]) CK MACRO II PERCENT 0 % Normal CK MACRO II PERC ENT [facility] ([facility]) ID Date Data Source [id number] 01/18/2021 09:18:00 AM EST [place] ([facility]) Name Value Range Interpretation Code Description Data Cinthia rce(s) Supporting Document(s) Reported Physicians See Note Reported Physici ans [place] ([facility]) Note: Reported Physicians:Ordering: Ellen resendiz [phone], Jordan FNPAttending: Rosanna DianeCopy To: Rosanna DianeCopmartín To: Keenan Arteaga To: Martha Mejia ID Date Data Source [id number] 01/18/2021 09:18:00 AM EST [facility] ([facility]) Name Value Range Interpretation Code Description Data Cinthia rce(s) Supporting Document(s) FREE T3 2.2 PG/ML Normal FREE T3 [place] ([facility]) ID Date Data Source [id number] 01/18/2021 09:18:00 AM EST [facility] ([facility]) Name Value Range Interpretation Code Description Data Cinthia rce(s) Supporting Document(s) Reported Physicians See Note Reported Physici ans [place] ([facility]) Note: Reported Physicians:Ordering: Ellen resendiz [phone], Jordan FNPAttending: Eliecer DianeicaCopy To: Rosanna DianeCopy To: Mich ArteagaCopmartín To: Martha Mejia ID Date Data Source [id number] 01/18/2021 09:18:00 AM EST [facility] ([facility]) Name Value Range Interpretation Code Description Data Cinthia rce(s) Supporting Document(s) BLOOD UREA NITROGEN 22 MG/DL Above high normal BLOOD URE A NITROGEN [place] ([facility]) GLUCOSE, FASTING 123 MG/DL Above high normal GLUCOSE, FAS TING [facility]) CREATININE FOR GFR 0.51 MG/DL Below low normal CREATININE FOR GFR [place] ([facility]) SODIUM LEVEL 143 MEQ/L Normal SODIUM LEVEL [place] ( [facility]) POTASSIUM SERUM 4.2 MEQ/L Normal [facility]UM [facility]) GLOMERULAR FILTRATION RATE > 60.0 Normal GLOMERULA R FILTRATION RATE [place] ([facility]) Note: Units are mL/min/1.73 m2 Chroni c Kidney Disease Staging per NKF: Stage I & II GFR >=60 Normal to Mildly Decreased Stage III GFR 30- 59 Moderately Decreased Stage IV GFR 15-29 Severely Decreased Stage V GFR <15 Very Little GFR Left ESRD GFR <15 on CONSTRUCTION TECH CARBON DIOXIDE LEVEL 35 MEQ/L Above high normal CARBON D IOXIDE LEVEL [facility]) Anion gap in Body fluid 4 MEQ/L Below low normal ANION GAP [facility]) CALCIUM LEVEL 9.5 MG/DL Normal CALCIUM LEVEL [facility]) CHLORIDE LEVEL 104 MEQ/L Normal CHLORIDE LEVEL [facility]) Alkaline phosphatase [Enzymatic activity/volume] in Se rum, Plasma or Blood 57 U/L Normal ALKALINE PHOSPHATASE [facility]) ALT/SGPT 23 U/L Normal ALT/SGPT [facility]) AST/SGOT 9 U/L Normal AST/SGOT [place] ([facility]) BILIRUBIN,TOTAL 0.1 MG/DL Below low normal BILIRUBIN,TOTA L [facility]) TOTAL PROTEIN 6.4 GM/DL Normal TOTAL PROTEIN [facility]) Albumin [Mass/volume] in Blood by Bromocresol purple ( BCP) dye binding method 3.1 GM/DL Below low normal ALBUMIN [place] ([facility]) ALBUMIN/GLOBULIN RATIO 0.9 Below low normal ALBUMIN /GLOBULIN RATIO [place] ([facility]) ID Date Data Source [id number] 01/06/2021 11:48:00 AM EST [facility] ([facility]) Name Value Range Interpretation Code Description Data Cinthia rce(s) Supporting Document(s) Hemoglobin A1c/Hemoglobin.total in Blood 4.9 [facility] ([facility]) Glucose [Mass/volume] in Serum or Plasma 67 [facility] ([facility]) ID Date Data Source [id number] 11/19/2020 12:00:00 AM EST [facility] Name Value Range Interpretation Code Description Data Cinthia rce(s) Supporting Document(s) SARS-CoV2 Rapid Antigen [facility] This lab was reported by [facility] ID Date Data Source [id number] 10/03/2020 05:26:00 PM EST [facility] ([facility]) Name Value Range Interpretation Code Description Data Cinthia rce(s) Supporting Document(s) Creatinine [Mass/volume] in Urine 78.1 mg/dL [facility] ([facility]) Microalbumin [Mass/volume] in Urine 2130.0 mg/L [facility] ([facility]) Microalbumin/Creatinine [Mass Ratio] in Urine 2727.2 MCG/MG 0.0-30.0 [facility] ([facility]) THE [employer] STATES THAT MICROALBUMINURIA IS PRESENT IF THE MICROALBUMIN/CREATININE RATIO EXCEEDS 30 MCG/MG. THE THRESHOLD FOR CLINICAL ALBUMINURIA IS REACHED AT 300 MCG/MG. THE CLASSIFICATION OF A PATIENT SHOULD BE BASED UPON AT LEAST 2 OF 3 ABNORMAL RESULTS ON SPECIMENS COLLECTED WITHIN A 3 TO 6 MONTH TIME FRAME. ID Date Data Source [id number] 10/03/2020 05:26:00 PM EST [facility] ([facility]) Name Value Range Interpretation Code Description Data Cinthia rce(s) Supporting Document(s) Glucose, Fasting 82 mg/dL 70-100 [facility] ([facility]) Creatinine For GFR 0.75 mg/dL 0.55-1.30 [facility] ([facility]) Blood Urea Nitrogen 28 mg/dL 7-18 [facility] ([facility]) Glomerular Filtration Rate [facility]) <content>Units are mL/min/1.73 m2</content>
<content></content>
<content>Chronic Kidney Disease Staging per NKF:</content>
<content></content>
<content>Stage I & II GFR >=60 Normal to Mildly Decreased</content>
<content>Stage III GFR 30-59 Moderately Decreased</content>
<content>Stage IV GFR 15-29 Severely Decreased</content>
<content>Stage V GFR <15 Very Little GFR Left</content>
<content>ESRD GFR <15 on CONSTRUCTION TECH</content>
<content></content> Potassium Serum 4.1 meq/L 3.5-5.1 [facility] ([facility]) Sodium Level 145 meq/L 136-145 [facility] ([facility]) Chloride Level 106 meq/L 98-107 [facility] ([facility]) Carbon Dioxide Level 32 meq/L 21-32 [facility] ([facility]) Anion Gap 7 meq/L 8-16 [facility] ([facility]) Calcium Level 9.8 mg/dL 8.8-10.2 [facility] ([facility]) ID Date Data Source [id number] 09/03/2020 02:47:00 PM EDT [facility] ([facility]) Name Value Range Interpretation Code Description Data Cinthia rce(s) Supporting Document(s) Hemoglobin A1c/Hemoglobin.total in Blood 5.4 [facility] ([facility]) Glucose [Mass/volume] in Serum or Plasma 101 [facility] ([facility]) ID Date Data Source [id number] URINALYSIS 08/20/2020 09:32:52 AM EDT eCW1 (formerly [facility]) Name Value Range Interpretation Code Description Data Cinthia rce(s) Supporting Document(s) Laboratory studies (set) UA URINALYS IS eCW1 ([facility]) ID Date Data Source URINE CULTURE 08/20/2020 09:32:44 AM EDT eCW1 (formerly [facility]) Name Value Range Interpretation Code Description Data Cinthia rce(s) Supporting Document(s) Laboratory studies (set) URINE CULTU RE eCW1 ([facility]) ID Date Data Source PT & APTT 08/20/2020 09:32:32 AM EDT eCW1 (formerly [facility]) Name Value Range Interpretation Code Description Data Cinthia rce(s) Supporting Document(s) 13.3 eCW1 (On license of [facility]) 0.99 eCW1 (On license of [facility]) 31.3 eCW1 (On license of [facility]) ID Date Data Source Basic Metabolic Profile (BMP) 08/20/2020 04:51:29 AM EDT eCW 1 ([facility]) Name Value Range Interpretation Code Description Data Cinthia rce(s) Supporting Document(s) 56 eCW1 (On license of [facility]) 26 eCW1 (On license of [facility]) 141 eCW1 (On license of [facility]) > 60.0 eCW1 (On license of [facility]) 0.68 eCW1 (On license of [facility]) 33 eCW1 (On license of [facility]) 4.3 eCW1 (On license of [facility]) 103 eCW1 (On license of [facility]) 9.6 eCW1 (On license of [facility]) ID Date Data Source CBC - Complete Blood Count 08/20/2020 04:51:15 AM EDT eCW1 ( [facility]) Name Value Range Interpretation Code Description Data Cinthia rce(s) Supporting Document(s) 4.5 eCW1 (On license of [facility]) 4.70 eCW1 (On license of [facility]) 98.9 eCW1 (On license of [facility]) 31.1 eCW1 (On license of [facility]) 46.5 eCW1 (On license of [facility]) 14.6 eCW1 (On license of [facility]) 359 eCW1 (On license of [facility]) 14.1 eCW1 (On license of [facility]) 31.4 eCW1 (On license of [facility]) ID Date Data Source [id number] 07/31/2020 10:37:00 AM EDT [facility] ([facility]) Name Value Range Interpretation Code Description Data Cinthia rce(s) Supporting Document(s) Reported Physicians See Note Reported Physici ans [facility] ([facility]) Note: Reported Physicians:Ordering: ANGIE MCCALL [phone], FOREST BlackburnAttending: Laura GAN To: Laura GAN To: Martha Mejia ID Date Data Source [id number] 07/31/2020 10:37:00 AM EDT [facility] ([facility]) Name Value Range Interpretation Code Description Data Cinthia rce(s) Supporting Document(s) BEDSIDE GLUCOSE 78 MG/DL Below low normal BEDSIDE GLUCOS E [facility] ([facility]) Note: Nurse Notified ID Date Data Source [id number] 07/26/2020 11:00:00 AM EDT [facility] Name Value Range Interpretation Code Description Data Cinthia rce(s) Supporting Document(s) SARS coronavirus 2 RNA [facility] This lab was ordered by [facility] and reported by [facility]. Procedure Social History Code Duration Value Status Description Data Source(s ) Smoking 09/09/2021 12:00:00 AM EDT Former Smoker completed Former Smoker eCW1 ([facility]) Smoking 08/19/2021 12:00:00 AM EDT Patient has never smoked co mpleted Patient has never smoked [facility] ([facility]) Smoking 08/18/2021 12:00:00 AM EDT Former Smoker completed Former Smoker eCW1 ([facility]) Smoking 08/18/2021 12:00:00 AM EDT Former Smoker completed Former Smoker eCW1 ([facility]) Smoking 08/18/2021 12:00:00 AM EDT Former Smoker completed Former Smoker eCW1 ([facility]) Smoking 07/21/2021 12:00:00 AM EDT Former Smoker completed Former Smoker eCW1 ([facility]) Smoking 07/21/2021 12:00:00 AM EDT Former Smoker completed Former Smoker eCW1 ([facility]) Smoking 05/06/2021 12:00:00 AM EDT Patient is a former smoker completed Patient is a former smoker [facility] ([facility]) Smoking 01/13/2021 06:50:29 PM EST Never smoked tobacco (findi ng) completed Never smoked tobacco (finding) [facility] ([facility]) Smoking 12/31/2020 12:00:00 AM EST Former Smoker completed Former Smoker eCW1 ([facility]) Smoking 12/31/2020 12:00:00 AM EST Former Smoker completed Former Smoker eCW1 ([facility]) Smoking 12/31/2020 12:00:00 AM EST Former Smoker completed Former Smoker eCW1 ([facility]) Smoking 12/31/2020 12:00:00 AM EST Former Smoker completed Former Smoker eCW1 ([facility]) Smoking 12/31/2020 12:00:00 AM EST Former Smoker completed Former Smoker eCW1 ([facility]) Smoking 12/31/2020 12:00:00 AM EST Former Smoker completed Former Smoker eCW1 ([facility]) Smoking 11/23/2020 12:00:00 AM EST Patient is a former smoker completed Patient is a former smoker PAT ([facility]) Vital Signs ID Date Data Source UNK Name Value Range Interpretation Code Description Data Source(s) Systolic blood pressure 118 mm[Hg] 118 mm[Hg] M EDENT ([facility]) Diastolic blood pressure 80 mm[Hg] 80 mm[Hg] [facility] ([facility]) Heart rate 78 /min 78 /min [facility] ([facility]) Body height 61 [in_i] 61 [in_i] [facility] ([facility]) 5'1" Body weight 107.50 [lb_av] 107.50 [lb_av] MEDEN T ([facility]) Body mass index (BMI) [Ratio] 20.3 kg/m2 20.3 k g/m2 [facility] ([facility] Oxygen saturation in Arterial blood by Pulse oximetry 96 % 96 % [facility] ([facility]) Body weight 111.00 [lb_av] 111.00 [lb_av] MEDEN T ([facility]) Body mass index (BMI) [Ratio] 21.3 kg/m2 21.3 k g/m2 [facility]) Diastolic blood pressure 92 mm[Hg] 92 mm[Hg] [facility] ([facility]) Heart rate 71 /min 71 /min [facility] ([facility]) Systolic blood pressure 160 mm[Hg] 160 mm[Hg] M ED[facility] ([facility]) Body height 60.5 [in_i] 60.5 [in_i] [facility] ([facility] 5'0.50" Diastolic blood pressure 80 mm[Hg] 80 mm[Hg] [facility] ([facility]) Systolic blood pressure 140 mm[Hg] 140 mm[Hg] G REENWAY ([facility]) Body mass index (BMI) [Ratio] 21.2 kg/m2 21.2 k g/m2 [facility] ([facility]) Body surface area Derived from formula 1.42 m2 1.42 m2 [place] ([facility]) Oxygen saturation in Arterial blood by Pulse oximetry 96 % 96 % [place] ([facility]) Heart rate 80 /min 80 /min [facility] Respiratory rate 20 /min 20 /min [facility] ([facility]) Body temperature 97.3 [degF] 97.3 [degF] [facility] ([facility]) Body height 59.5 [in_i] 59.5 [in_i] KADI ([facility] Body weight 107 [lb_av] 107 [lb_av] KAD[facility] ([facility] Body weight 106 [lb_av] 106 [lb_av] W1 ([facility]) Body mass index (BMI) [Ratio] 21.05 kg/m2 21.05 kg/m2 eCW1 ([facility]) Body weight 48.08 kg 48.08 kg eCW1 ([facility]) Heart rate 77 /min 77 /min eCW1 ([facility]) Respiratory rate 18 /min 18 /min eCW1 ([facility]) Body temperature 97.7 [degF] 97.7 [degF] eCW1 ( [facility]) Systolic blood pressure 136 mm[Hg] 136 mm[Hg] e CW1 ([facility]) Diastolic blood pressure 86 mm[Hg] 86 mm[Hg] eCW1 ([facility]) Body height 59.5 [in_i] 59.5 [in_i] eCW1 ([facility]) Systolic blood pressure 150 mm[Hg] 150 mm[Hg] M EDENT ([facility]) Diastolic blood pressure 86 mm[Hg] 86 mm[Hg] [facility] ([facility]) Body height 60 [in_i] 60 [in_i] [facility] ([facility]) 5'0" Body weight 106.00 [lb_av] 106.00 [lb_av] [facility]) Body mass index (BMI) [Ratio] 20.7 kg/m2 20.7 k g/m2 [facility] ([facility]) [place] body weight 100 [lb_av] 100 [lb_av] [facility]) Body weight 48.082 kg 48.082 kg [facility] ([facility]) Body surface area Derived from formula 1.43 m2 1.43 m2 [facility] ([facility]) Body surface area Derived from formula 1.42 m2 1.42 m2 [place] ([facility]) Diastolic blood pressure 68 mm[Hg] 68 mm[Hg] [place] ([facility]) Oxygen saturation in Arterial blood by Pulse oximetry 95 % 95 % [place] ([facility]) Body mass index (BMI) [Ratio] 21.1 kg/m2 21.1 k g/m2 [place] ([facility]) Inhaled oxygen flow rate 0 L/min 0 L/min [place] ([facility]) Inhaled oxygen concentration 21 % 21 % [place] ([facility]) Systolic blood pressure 122 mm[Hg] 122 mm[Hg] [facility] Heart rate 61 /min 61 /min [place] ([facility]) Respiratory rate 24 /min 24 /min [place] ([facility]) Body temperature 97.6 [degF] 97.6 [degF] [facility] ([facility]) Body height 59.5 [in_i] 59.5 [in_i] KADI ([facility]) Body weight 106 [lb_av] 106 [lb_av] KADI ([facility]) Respiratory rate 12 /min 12 /min MEDENT ( [facility] ) Body height 61 [in_i] 61 [in_i] MEDENT ([facility], ) 5'1" Body weight 105.00 [lb_av] 105.00 [lb_av] MEDEN T ([facility], ) Body mass index (BMI) [Ratio] 19.8 kg/m2 19.8 k g/m2 MEDENT ([facility], ) [place] body weight 105 [lb_av] 105 [lb_av] MEDEN T ([facility], ) Body height 60.5 [in_i] 60.5 [in_i] MEDENT ([facility] 5'0.50" Body mass index (BMI) [Ratio] 21.1 kg/m2 21.1 k g/m2 MEDENT ([facility]) Systolic blood pressure 129 mm[Hg] 129 mm[Hg] M EDENT ([facility]) Diastolic blood pressure 78 mm[Hg] 78 mm[Hg] MEDENT ([facility]) Heart rate 73 /min 73 /min MEDENT ([facility]) Body temperature 98.5 [degF] 98.5 [degF] MEDENT ([facility]) Body weight 110.00 [lb_av] 110.00 [lb_av] MEDEN T ([facility]) Body temperature 36.9 Melissa 36.9 Melissa MEDENT ( [facility]) Respiratory rate 73 /min 73 /min MEDENT ( [facility]) Body height 62 [in_i] 62 [in_i] MEDENT (John Chavez [facility]) 5'2" Body weight 108.00 [lb_av] 108.00 [lb_av] MEDEN T (John Chavez [facility]) Body mass index (BMI) [Ratio] 19.8 kg/m2 19.8 k g/m2 MEDENT (John Chavez [facility]) Body temperature 97.2 [degF] 97.2 [degF] MED[facility] (John Chavez [facility]) Systolic blood pressure 139 mm[Hg] 139 mm[Hg] M EDENT (John Chavez [facility]) Diastolic blood pressure 83 mm[Hg] 83 mm[Hg] [facility] (John Chavez [facility]) Heart rate 76 /min 76 /min MEDENT (John Chavez [facility]) Oxygen saturation in Arterial blood by Pulse oximetry 96 % 96 % MED[facility] (John Chavez [facility]) Body mass index (BMI) [Ratio] 21.1 kg/m2 21.1 k g/m2 [place] ([facility]) Body surface area Derived from formula 1.42 m2 1.42 m2 [place] ([facility]) Oxygen saturation in Arterial blood by Pulse oximetry 97 % 97 % [place] ([facility]) Inhaled oxygen flow rate 0 L/min 0 L/min [place] ([facility]) Inhaled oxygen concentration 21 % 21 % [place] ([facility]) Systolic blood pressure 140 mm[Hg] 140 mm[Hg] [facility] ([facility]) Diastolic blood pressure 90 mm[Hg] 90 mm[Hg] [place] ([facility]) Heart rate 71 /min 71 /min [place] ([facility]) Respiratory rate 18 /min 18 /min [place] ([facility]) Body temperature 94.5 [degF] 94.5 [degF] [facility] ([facility]) Body height 59.5 [in_i] 59.5 [in_i] KADI ([facility]) Body weight 106 [lb_av] 106 [lb_av] [facility] Diastolic blood pressure 80 mm[Hg] 80 mm[Hg] MEDENT ([facility]) Heart rate 60 /min 60 /min MEDENT ([facility]) Body temperature 97.5 [degF] 97.5 [degF] MED[facility] ([facility]) Body height 61 [in_i] 61 [in_i] MED[facility] ([facility]) 5'1" Body weight 108.25 [lb_av] 108.25 [lb_av] MEDEN T ([facility]) Body mass index (BMI) [Ratio] 20.5 kg/m2 20.5 k g/m2 MEDENT ([facility]) Systolic blood pressure 136 mm[Hg] 136 mm[Hg] M EDENT ([facility]) Oxygen saturation in Arterial blood by Pulse oximetry 98 % 98 % MED[facility] ([facility]) Body temperature 97.2 [degF] 97.2 [degF] MEDENT (John Chavez [facility]) Systolic blood pressure 144 mm[Hg] 144 mm[Hg] M EDENT (John Chavez [facility]) Diastolic blood pressure 80 mm[Hg] 80 mm[Hg] MED[facility] (John Chavez [facility]) Heart rate 63 /min 63 /min MED[facility] (John Chavez [facility]) Oxygen saturation in Arterial blood by Pulse oximetry 95 % 95 % [facility] Body height 62 [in_i] 62 [in_i] MEDENT (John Chavez [facility]) 5'2" Body weight 107.12 [lb_av] 107.12 [lb_av] MEDEN T (John Chavez [facility]) Body mass index (BMI) [Ratio] 19.6 kg/m2 19.6 k g/m2 MED[facility] (John Chavez [facility]) Inhaled oxygen concentration 21 % 21 % [place] ([facility]) Oxygen saturation in Arterial blood by Pulse oximetry 94 % 94 % [place] ([facility]) Systolic blood pressure 118 mm[Hg] 118 mm[Hg] [facility] ([facility]) Diastolic blood pressure 68 mm[Hg] 68 mm[Hg] [place] ([facility]) Body mass index (BMI) [Ratio] 20.7 kg/m2 20.7 k g/m2 [place] ([facility]) Inhaled oxygen flow rate 0 L/min 0 L/min [place] ([facility]) Body surface area Derived from formula 1.41 m2 1.41 m2 [place] ([facility]) Heart rate 87 /min 87 /min [place] ([facility]) Respiratory rate 24 /min 24 /min [place] ([facility]) Body temperature 98.1 [degF] 98.1 [degF] [facility] ([facility]) Body height 59.5 [in_i] 59.5 [in_i] KADI ([facility]) Body weight 104 [lb_av] 104 [lb_av] [place] ([facility]) Systolic blood pressure 138 mm[Hg] 138 mm[Hg] M EDENT ([facility] ) Diastolic blood pressure 80 mm[Hg] 80 mm[Hg] MED[facility] ([facility] ) Heart rate 77 /min 77 /min [facility] Body temperature 95.1 [degF] 95.1 [degF] MED[facility] ([facility] ) Body height 61 [in_i] 61 [in_i] [facility] 5'1" Body weight 105.25 [lb_av] 105.25 [lb_av] MEDEN T ([facility] ) Body mass index (BMI) [Ratio] 19.9 kg/m2 19.9 k g/m2 [facility] ) Oxygen saturation in Arterial blood by Pulse oximetry 98 % 98 % [facility] ) Respiratory rate 12 /min 12 /min [facility] ( [facility] ) Body height 61 [in_i] 61 [in_i] [facility] ([facility], ) 5'1" Body weight 105.00 [lb_av] 105.00 [lb_av] MEDEN T ([facility] ) Body mass index (BMI) [Ratio] 19.8 kg/m2 19.8 k g/m2 MED[facility] ([facility] ) [place] body weight 105 [lb_av] 105 [lb_av] MEDEN T ([facility], ) Systolic blood pressure 124 mm[Hg] 124 mm[Hg] M EDENT ([facility] ) Body temperature 95.9 [degF] 95.9 [degF] [facility] ([facility] ) Body height 61 [in_i] 61 [in_i] [facility] ([facility] ) 5'1" Body weight 103.50 [lb_av] 103.50 [lb_av] MEDEN T ([facility]) Diastolic blood pressure 86 mm[Hg] 86 mm[Hg] MED[facility] ([facility]) Heart rate 71 /min 71 /min MED[facility] ([facility]) Body mass index (BMI) [Ratio] 19.6 kg/m2 19.6 k g/m2 [facility] ([facility]) Oxygen saturation in Arterial blood by Pulse oximetry 96 % 96 % [facility] ([facility]) Diastolic blood pressure 80 mm[Hg] 80 mm[Hg] KADI ([facility]) Systolic blood pressure 146 mm[Hg] 146 mm[Hg] [facility] ([facility]) Body mass index (BMI) [Ratio] 20.6 kg/m2 20.6 k g/m2 [place] ([facility]) Body surface area Derived from formula 1.40 m2 1.40 m2 [place] ([facility]) Oxygen saturation in Arterial blood by Pulse oximetry 95 % 95 % [place] ([facility]) Heart rate 76 /min 76 /min [place] ([facility]) Respiratory rate 20 /min 20 /min [place] ([facility]) Body temperature 97.4 [degF] 97.4 [degF] [facility] ([facility]) Body height 59.5 [in_i] 59.5 [in_i] [place] ([facility]) Body weight 103.5 [lb_av] 103.5 [lb_av] [facility] ([facility]) Systolic blood pressure 110 mm[Hg] 110 mm[Hg] [facility] ([facility]) Diastolic blood pressure 60 mm[Hg] 60 mm[Hg] [place] ([facility]) Body mass index (BMI) [Ratio] 20.5 kg/m2 20.5 k g/m2 [place] ([facility]) Body surface area Derived from formula 1.40 m2 1.40 m2 [place] ([facility]) Oxygen saturation in Arterial blood by Pulse oximetry 96 % 96 % [place] ([facility]) Heart rate 76 /min 76 /min [place] ([facility]) Respiratory rate 20 /min 20 /min [place] ([facility]) Body temperature 96.7 [degF] 96.7 [degF] [facility] ([facility]) Body height 59.5 [in_i] 59.5 [in_i] KADI ([facility]) Body weight 103 [lb_av] 103 [lb_av] KADI ([facility]) Body mass index (BMI) [Ratio] 21.1 kg/m2 21.1 k g/m2 [place] ([facility]) Body surface area Derived from formula 1.42 m2 1.42 m2 [place] ([facility]) Oxygen saturation in Arterial blood by Pulse oximetry 81 % 81 % [place] ([facility]) Systolic blood pressure 138 mm[Hg] 138 mm[Hg] [facility] ([facility]) Diastolic blood pressure 80 mm[Hg] 80 mm[Hg] [place] ([facility]) Heart rate 88 /min 88 /min KADI ([facility]) Respiratory rate 20 /min 20 /min [place] ([facility]) Body temperature 98 [degF] 98 [degF] [place] ([facility]) Body height 59.5 [in_i] 59.5 [in_i] [place] ([facility]) Body weight 106 [lb_av] 106 [lb_av] [place] ([facility]) Body surface area Derived from formula 1.42 m2 1.42 m2 [place] ([facility]) Oxygen saturation in Arterial blood by Pulse oximetry 81 % 81 % [place] ([facility]) Heart rate 88 /min 88 /min [place] ([facility]) Respiratory rate 20 /min 20 /min [place] ([facility]) Body temperature 98 [degF] 98 [degF] [place] ([facility]) Body height 59.5 [in_i] 59.5 [in_i] KADI ([facility]) Body weight 106 [lb_av] 106 [lb_av] KADI ([facility]) Systolic blood pressure 138 mm[Hg] 138 mm[Hg] G [place] ([facility]) Diastolic blood pressure 80 mm[Hg] 80 mm[Hg] [facility]AD[place] ([facility]) Body mass index (BMI) [Ratio] 21.1 kg/m2 21.1 k g/m2 [facility] ([facility]) Diastolic blood pressure 74 mm[Hg] 74 mm[Hg] MEDENT ([facility] ) Oxygen saturation in Arterial blood by Pulse oximetry 96 % 96 % MED[facility] ([facility]) Body height 61 [in_i] 61 [in_i] [facility] ([facility]) 5'1" Body weight 103.50 [lb_av] 103.50 [lb_av] MEDEN T ([facility]) Systolic blood pressure 118 mm[Hg] 118 mm[Hg] M EDENT ([facility]) Heart rate 69 /min 69 /min MED[facility] ([facility]) Body temperature 96.4 [degF] 96.4 [degF] [facility] ([facility]) Body mass index (BMI) [Ratio] 19.6 kg/m2 19.6 k g/m2 [facility] ([facility] ) Body weight 104 [lb_av] 104 [lb_av] eCW1 ([facility]) Body height 59.5 [in_i] 59.5 [in_i] eCW1 ([facility]) Diastolic blood pressure 88 mm[Hg] 88 mm[Hg] eCW1 ([facility]) Body mass index (BMI) [Ratio] 20.65 kg/m2 20.65 kg/m2 eCW1 ([facility]) Heart rate 66 /min 66 /min eCW1 ([facility]) Respiratory rate 18 /min 18 /min eCW1 ([facility]) Systolic blood pressure 138 mm[Hg] 138 mm[Hg] e CW1 ([facility]) Systolic blood pressure 142 mm[Hg] 142 mm[Hg] M EDENT ([facility], [facility]) Body temperature 97.8 [degF] 97.8 [degF] MEDENT ([facility], [facility]) Body weight 106.00 [lb_av] 106.00 [lb_av] [facility], [facility]) Body height 62 [in_i] 62 [in_i] [facility] ([facility], [facility]) 5'2" Body mass index (BMI) [Ratio] 19.4 kg/m2 19.4 k g/m2 MEDENT ([facility], [facility]) Diastolic blood pressure 93 mm[Hg] 93 mm[Hg] MEDENT ([facility], [facility]) Heart rate 89 /min 89 /min MEDENT ([facility], [facility]) Respiratory rate 18 /min 18 /min [facility] ( [facility], [facility]) Oxygen saturation in Arterial blood by Pulse oximetry 96 % 96 % [facility] ([facility], [facility]) Systolic blood pressure 124 mm[Hg] 124 mm[Hg] M EDENT ([facility], [facility]) Diastolic blood pressure 76 mm[Hg] 76 mm[Hg] [facility] ([facility], [facility]) Heart rate 77 /min 77 /min MEDENT ([facility], [facility]) Respiratory rate 18 /min 18 /min [facility] ( [facility], [facility]) Oxygen saturation in Arterial blood by Pulse oximetry 96 % 96 % [facility] ([facility], [facility]) Body temperature 99.3 [degF] 99.3 [degF] [facility] ([facility], [facility]) Body weight 106.00 [lb_av] 106.00 [lb_av] [facility] ([facility], [facility]) Systolic blood pressure 132 mm[Hg] 132 mm[Hg] [facility] Diastolic blood pressure 86 mm[Hg] 86 mm[Hg] [place] ([facility]) Body height 59.75 [in_i] 59.75 [in_i] [place] ([facility]) Body weight 114 [lb_av] 114 [lb_av] [place] ([facility]) Body mass index (BMI) [Ratio] 22.5 kg/m2 22.5 k g/m2 [place] ([facility]) Body surface area Derived from formula 1.47 m2 1.47 m2 [place] ([facility]) Oxygen saturation in Arterial blood by Pulse oximetry 94 % 94 % [place] ([facility]) Inhaled oxygen flow rate 0 L/min 0 L/min [place] ([facility]) Inhaled oxygen concentration 21 % 21 % [place] ([facility]) Heart rate 66 /min 66 /min [place] ([facility]) Respiratory rate 22 /min 22 /min [place] ([facility]) Body temperature 96.8 [degF] 96.8 [degF] [facility] ([facility]) Body mass index (BMI) [Ratio] 22.1 kg/m2 22.1 k g/m2 [facility] ([facility]) Body height 60 [in_i] 60 [in_i] [facility] ([facility]) 5'0" Body weight 113.00 [lb_av] 113.00 [lb_av] MED[facility] T ([facility]) [place] body weight 100 [lb_av] 100 [lb_av] MED[facility] T ([facility]) Body weight 51.257 kg 51.257 kg [facility] ([facility]) Systolic blood pressure 142 mm[Hg] 142 mm[Hg] [facility] ([facility]) Diastolic blood pressure 84 mm[Hg] 84 mm[Hg] [facility] ([facility]) Body height 60 [in_i] 60 [in_i] [facility] ([facility]) 5'0" Body weight 113.00 [lb_av] 113.00 [lb_av] MED[facility] T ([facility]) Body mass index (BMI) [Ratio] 22.1 kg/m2 22.1 k g/m2 [facility] ([facility]) [place] body weight 100 [lb_av] 100 [lb_av] MED[facility] T ([facility]) Body weight 51.257 kg 51.257 kg [facility] ([facility]) Body surface area Derived from formula 1.46 m2 1.46 m2 [facility] ([facility] ) Systolic blood pressure 152 mm[Hg] 152 mm[Hg] M EDENT ([facility]) Diastolic blood pressure 80 mm[Hg] 80 mm[Hg] MED[facility] ([facility]) Body temperature 96.6 [degF] 96.6 [degF] [facility] Body height 61 [in_i] 61 [in_i] [facility] ([facility]) 5'1" Body weight 114.25 [lb_av] 114.25 [lb_av] MED[facility] T ([facility]) Body mass index (BMI) [Ratio] 21.6 kg/m2 21.6 k g/m2 [facility] ([facility]) Heart rate 66 /min 66 /min [facility] ([facility]) Oxygen saturation in Arterial blood by Pulse oximetry 97 % 97 % [facility] ([facility]) Systolic blood pressure 152 mm[Hg] 152 mm[Hg] [facility], ) Diastolic blood pressure 98 mm[Hg] 98 mm[Hg] [facility] ([facility], ) Body height 60 [in_i] 60 [in_i] [facility] ([facility]) 5'0" Body weight 114.00 [lb_av] 114.00 [lb_av] [facility]) Body mass index (BMI) [Ratio] 22.3 kg/m2 22.3 k g/m2 [facility] ([facility]) [place] body weight 100 [lb_av] 100 [lb_av] [facility], ) Body weight 51.710 kg 51.710 kg [facility] ([facility], ) Respiratory rate 24 /min 24 /min [place] ([facility]) Systolic blood pressure 124 mm[Hg] 124 mm[Hg] [facility] [place] ([facility]) Diastolic blood pressure 66 mm[Hg] 66 mm[Hg] [place] ([facility]) Heart rate 81 /min 81 /min KADI ([facility]) Body surface area Derived from formula 1.49 m2 1.49 m2 [place] ([facility]) Oxygen saturation in Arterial blood by Pulse oximetry 95 % 95 % [place] ([facility]) Inhaled oxygen flow rate 0 L/min 0 L/min [place] ([facility]) Inhaled oxygen concentration 21 % 21 % [place] ([facility]) Body temperature 97.6 [degF] 97.6 [degF] [facility] Body height 59.75 [in_i] 59.75 [in_i] [place] ([facility]) Body weight 119 [lb_av] 119 [lb_av] [place] ([facility]) Body mass index (BMI) [Ratio] 23.4 kg/m2 23.4 k g/m2 [place] ([facility]) Patient Treatment Plan of Care Planned Activity Planned Date Details Description Data Source (s) NITROFURANTOIN, MACROCRYSTALS 25 MG / Ni trofurantoin, Monohydrate 75 MG Oral Capsule [Macrobid] 08/05/2021 12:00:00 AM EDT eC W1 ([facility]) NITROFURANTOIN, MACROCRYSTALS 25 MG / Ni trofurantoin, Monohydrate 75 MG Oral Capsule [Macrobid] 08/05/2021 12:00:00 AM EDT eC W1 ([facility]) NITROFURANTOIN, MACROCRYSTALS 25 MG / Ni trofurantoin, Monohydrate 75 MG Oral Capsule [Macrobid] 08/05/2021 12:00:00 AM EDT eC W1 ([facility]) NITROFURANTOIN, MACROCRYSTALS 25 MG / Ni trofurantoin, Monohydrate 75 MG Oral Capsule [Macrobid] 08/05/2021 12:00:00 AM EDT eC W1 ([facility]) NITROFURANTOIN, MACROCRYSTALS 25 MG / Ni trofurantoin, Monohydrate 75 MG Oral Capsule [Macrobid] 08/05/2021 12:00:00 AM EDT eC W1 ([facility]) Huggies Pull-Ups Miscellaneous 06/12/2021 12:00:00 AM EDT [place] ([facility]) Huggies Pull-Ups Miscellaneous 06/12/2021 12:00:00 AM EDT [place] ([facility]) Fenofibrate 48 MG Oral Tablet 06/12/2021 12:00:00 AM EDT [place] ([facility]) 12 HR Bupropion Hydrochloride 100 MG Extended Release Oral Tablet 06/12/2021 12:00:00 AM EDT [place] ([facility]) carbamide peroxide 65 MG/ML Otic Solution [Murine Ear] 06/12/2021 12:00:00 AM EDT [place] ([facility]) cetirizine hydrochloride 10 MG Oral Tablet 06/12/2021 12:00:00 AM E DT [place] ([facility]) Sumatriptan 25 MG Oral Tablet 06/12/2021 12:00:00 AM EDT [place] ([facility]) Omeprazole 20 MG Delayed Release Oral Capsule 06/12/2021 12:00:00 A M EDT [place] ([facility]) Multivitamins Oral Capsule 06/12/2021 12:00:00 AM EDT [place] ([facility]) gabapentin 300 MG Oral Capsule 06/12/2021 12:00:00 AM EDT [place] ([facility]) Cholecalciferol 1000 UNT Oral Capsule 06/12/2021 12:00:00 AM EDT [place] ([facility]) Magnesium Oxide 400 MG Oral Tablet 06/12/2021 12:00:00 AM EDT [place] ([facility]) Simvastatin 40 MG Oral Tablet 06/12/2021 12:00:00 AM EDT [place] ([facility]) 7 ACTUAT umeclidinium 0.0625 MG/ACTUAT Dry Powder Inha ler [Incruse] 06/12/2021 12:00:00 AM EDT [place] ([facility]) ammonium lactate 120 MG/ML Topical Lotion 06/12/2021 12:00:00 AM ED T [place] ([facility]) ferrous sulfate 325 MG Oral Tablet 06/12/2021 12:00:00 AM EDT [place] ([facility]) Alendronic acid 70 MG Oral Tablet 06/01/2021 12:00:00 AM EDT [place] ([facility]) Fluticasone Propionate 50 MCG/ACT Nasal Suspension 05/28/2021 12 :00:[address] [facility]) ferrous sulfate 325 MG Oral Tablet 04/10/2021 12:00:00 AM [facility]) Fenofibrate 48 MG Oral Tablet 04/10/2021 12:00:[address] [facility]) 12 HR Bupropion Hydrochloride 100 MG Extended Release Oral Tablet 04/10/2021 12:00:00 AM T [facility]) Multivitamins Oral Capsule 04/10/2021 12:00:00 AM [facility]) gabapentin 300 MG Oral Capsule 04/10/2021 12:00:00 AM [facility]) Omeprazole 20 MG Delayed Release Oral Capsule 04/04/2021 12:00:00 A M [facility]) cetirizine hydrochloride 10 MG Oral Tablet 04/04/2021 12:00:00 AM E DT [place] ([facility]) Fiber-Lax 625 MG Oral Tablet 04/04/2021 12:00:00 AM [facility]) Sumatriptan 25 MG Oral Tablet 04/01/2021 12:00:00 AM [facility]) 7 ACTUAT umeclidinium 0.0625 MG/ACTUAT Dry Powder Inha ler [Incruse] 04/01/2021 12:00:00 AM EDT [place] ([facility]) Cholecalciferol 1000 UNT Oral Capsule 03/20/2021 12:00:[address] [facility]) Magnesium Oxide 400 MG Oral Tablet 03/14/2021 12:00:00 AM [facility]) Fluticasone Propionate 50 MCG/ACT Nasal Suspension 03/05/2021 12 :00:[address] [facility]) Huggies Pull-Ups Miscellaneous 03/05/2021 12:00:00 AM EDT [place] ([facility]) Alendronic acid 70 MG Oral Tablet 03/05/2021 12:00:00 AM EDT [place] ([facility]) Magnesium Oxide 400 MG Oral Tablet 03/05/2021 12:00:00 AM EDT [place] ([facility]) carbamide peroxide 65 MG/ML Otic Solution [Murine Ear] 03/05/2021 12:00:00 AM EDT [place] ([facility]) Simvastatin 40 MG Oral Tablet 03/05/2021 12:00:00 AM EDT [place] ([facility]) 12 HR Bupropion Hydrochloride 100 MG Extended Release Oral Tablet 02/08/2021 12:00:00 AM EDT [place] ([facility]) Cephalexin 500 MG Oral Capsule 02/05/2021 12:00:00 AM EDT [place] ([facility]) Multivitamins Oral Capsule 01/21/2021 12:00:00 AM EST [place] ([facility]) NITROFURANTOIN, MACROCRYSTALS 25 MG / Ni trofurantoin, Monohydrate 75 MG Oral Capsule [Macrobid] 01/20/2021 12:00:00 AM EST eC [place] ([facility]) NITROFURANTOIN, MACROCRYSTALS 25 MG / Ni trofurantoin, Monohydrate 75 MG Oral Capsule [Macrobid] 01/20/2021 12:00:00 AM EST eC [facility] ([facility]) NITROFURANTOIN, MACROCRYSTALS 25 MG / Ni trofurantoin, Monohydrate 75 MG Oral Capsule [Macrobid] 01/20/2021 12:00:00 AM EST eC [facility] ([facility]) NITROFURANTOIN, MACROCRYSTALS 25 MG / Ni trofurantoin, Monohydrate 75 MG Oral Capsule [Macrobid] 01/20/2021 12:00:00 AM EST eC [facility] ([facility]) cetirizine hydrochloride 10 MG Oral Tablet 01/13/2021 12:00:[address] [place] ([facility]) Fenofibrate 48 MG Oral Tablet 01/13/2021 12:00:00 AM [facility] ([facility]) ferrous sulfate 325 MG Oral Tablet 01/13/2021 12:00:[facility] calcium polycarbophil 625 MG Oral Tablet [FiberCon] 01/13/20 12:00:00 AM [facility] ([facility]) Omeprazole 20 MG Delayed Release Oral Capsule 01/13/2021 12:00:00 A M EST [place] ([facility]) gabapentin 300 MG Oral Capsule 01/13/2021 12:00:00 AM [facility] ([facility]) 7 ACTUAT umeclidinium 0.0625 MG/ACTUAT Dry Powder Inha ler [Incruse] 01/13/2021 12:00:00 AM [facility] ([facility]) Sumatriptan 25 MG Oral Tablet 01/13/2021 12:00:00 AM [facility] ([facility]) ferrous sulfate 325 MG Oral Tablet 01/10/2021 12:00:00 AM [facility] ([facility]) Alendronic acid 70 MG Oral Tablet 01/07/2021 12:00:00 AM [facility] ([facility]) Sure Comfort Pen Denbo 32G X 6 MM Miscellaneous 01/02/2021 12: 00:00 AM [facility] ([facility]) Fluticasone Propionate 50 MCG/ACT Nasal Suspension 12/27/2020 12 :00:[address] [facility]) Magnesium Oxide 400 MG Oral Tablet 12/20/2020 12:00:[address] [facility]) carbamide peroxide 65 MG/ML Otic Solution [Murine Ear] 12/17/2020 12:00:00 AM [facility] ([facility]) ferrous sulfate 325 MG Oral Tablet 12/13/2020 12:00:00 AM [facility] ([facility]) ammonium lactate 120 MG/ML Topical Lotion 12/08/2020 12:00:00 AM [facility] ([facility]) Simvastatin 40 MG Oral Tablet 12/05/2020 12:00:[address] [facility]) Cholecalciferol 1000 UNT Oral Capsule 12/05/2020 12:00:[address] [facility]) 12 HR Bupropion Hydrochloride 100 MG Extended Release Oral Tablet 11/25/2020 12:00:00 AM [facility]) calcium polycarbophil 625 MG Oral Tablet [FiberCon] 11/19/20 12:00:[address] [facility]) gabapentin 300 MG Oral Capsule 11/11/2020 12:00:[address] [facility]) Omeprazole 20 MG Delayed Release Oral Capsule 11/11/2020 12:00:[address] [facility]) cetirizine hydrochloride 10 MG Oral Tablet 11/05/2020 12:00:00 AM E [facility]) Fenofibrate 48 MG Oral Tablet 11/05/2020 12:00:[address] [facility]) 7 ACTUAT umeclidinium 0.0625 MG/ACTUAT Dry Powder Inha ler [Incruse] 10/25/2020 12:00:00 AM [facility]) Magnesium 400 MG Oral Tablet 10/21/2020 12:00:[address] [facility]) Fenofibrate 48 MG Oral Tablet 10/08/2020 12:00:[address] [facility]) 12 HR Bupropion Hydrochloride 100 MG Extended Release Oral Tablet 10/08/2020 12:00:00 AM [facility]) cetirizine hydrochloride 10 MG Oral Tablet 10/08/2020 12:00:00 AM E [facility] ([facility]) Huggies Pull-Ups Miscellaneous 10/03/2020 12:00:[address] [facility]) 7 ACTUAT umeclidinium 0.0625 MG/ACTUAT Dry Powder Inha ler [Incruse] 09/28/2020 12:00:00 AM [facility]) ferrous sulfate 325 MG Oral Tablet 09/26/2020 12:00:00 AM [facility] ([facility]) Alendronic acid 70 MG Oral Tablet [Fosamax] 09/26/2020 12:00:[address] [facility]) Magnesium 400 MG Oral Tablet 09/25/2020 12:00:[address] [facility]) ammonium lactate 120 MG/ML Topical Lotion [Lac-Hydrin] [facility] Multivitamins Oral Capsule 09/18/2020 12:00:00 AM [facility] ([facility]) Cholecalciferol 1000 UNT Oral Capsule 09/18/2020 12:00:00 AM [facility]) Simvastatin 40 MG Oral Tablet 09/18/2020 12:00:00 AM [facility] ([facility]) 12 HR Bupropion Hydrochloride 100 MG Extended Release Oral Tablet 09/10/2020 12:00:00 AM [facility] ([facility]) cetirizine hydrochloride 10 MG Oral Tablet 09/10/2020 12:00:00 AM E [facility] ([facility]) Fenofibrate 48 MG Oral Tablet 09/10/2020 12:00:00 AM [facility] ([facility]) calcium polycarbophil 625 MG Oral Tablet [FiberCon] 09/02/20 [facility] Magnesium 400 MG Oral Tablet 08/29/2020 12:00:00 AM [facility] ([facility]) 7 ACTUAT umeclidinium 0.0625 MG/ACTUAT Dry Powder Inha ler [Incruse] 08/22/2020 12:00:00 AM EDT [place] ([facility]) 200 ACTUAT Albuterol 0.09 MG/ACTUAT Metered Dose Inhal er [Ventolin] 08/22/2020 [facility] gabapentin 300 MG [facility]apsule [facility] 07/24/2020 12:00:00 AM [facility]) Omeprazole 20 MG Delayed Release Oral Capsule 07/23/2020 12:00:00 A M [facility]) gabapentin 300 MG Oral Capsule 06/18/2020 12:00:00 AM [facility]) ammonium lactate 120 MG/ML Topical Lotion [Lac-Hydrin] 06/18/2020 12:00:00 AM EDT [facility]) Fenofibrate 48 MG Oral Tablet 06/04/2020 12:00:00 AM [facility]) 200 ACTUAT Albuterol 0.09 MG/ACTUAT Metered Dose Inhal er [Ventolin] 06/04/2020 12:00:00 AM T [facility]) cetirizine hydrochloride 10 MG Oral Tablet 06/04/2020 12:00:00 AM E DT [place] ([facility]) Riboflavin 400 MG Oral Tablet 06/04/2020 12:00:[address] [facility]) Sumatriptan 25 MG Oral Tablet 06/04/2020 12:00:00 AM [facility]) ferrous sulfate 325 MG Oral Tablet 06/04/2020 12:00:00 AM [facility]) Cholecalciferol 1000 UNT Oral Capsule 06/04/2020 12:00:00 AM [facility]) 12 HR Bupropion Hydrochloride 100 MG Extended Release Oral Tablet 06/04/2020 12:00:00 AM [facility]) Fluticasone Propionate 50 MCG/ACT Nasal Suspension 06/04/2020 12 :00:[address] [facility]) Magnesium Oxide 400 MG Oral Tablet 06/04/2020 12:00:00 AM [facility]) Alendronic acid 70 MG Oral Tablet [Fosamax] 06/04/2020 12:00:[address] [facility]) Multivitamins Oral Capsule 06/03/2020 12:00:00 AM EDT [place] ([facility]) 7 ACTUAT umeclidinium 0.0625 MG/ACTUAT Dry Powder Inha ler [Incruse] 06/03/2020 12:00:00 AM EDT [place] ([facility]) calcium polycarbophil 625 MG Oral Tablet [FiberCon] 06/03/20 20 12:00:00 AM EDT [place] ([facility]) Simvastatin 40 MG Oral Tablet 05/29/2020 12:00:00 AM EDT [place] ([facility]) Omeprazole 20 MG Delayed Release Oral Capsule 05/03/2020 12:00:00 A M [facility] ([facility]) carbamide peroxide 65 MG/ML Otic Solution [Debrox] 03/05/2020 12 :00:00 AM [facility] ([facility]) BD Pen Needle Micro U/F 32G X 6 MM Miscellaneous 12/04/2019 12:00:[address] [facility])
--- OUTSIDE RECORDS SUMMARY | 2021-09-19 15:37 | CCD ---
Author Author [facility] Organization [facility] Address Unknown Phone Unavailable Care Team Providers Care Solar Designer/Installer Name Role Phone Andrade Mejia MD Unavailable [...] Andrade Thomas MD Unavailable Unavailable Roberto, Andrade Thmoas MD Unavailable Unavailable Roberto, Andrade Thomas MD [...] J EMILIO PA Unavailable Unavailable CRANE, J EMIILO PA Unavailable Unavailable CRANE, J EMILIO PA Unavailable Unavailable CRANE, J MEILIO PA Unavailable Unavailable CRANE, J EMILIO PA [...] Unavailable Unavailable Michael Mayo MD Unavailable Unavailable Micheal Mayo MD Unavailable Unavailable Michael Mayo MD [...] Unavailable Unavailable Michael Mayo MD Unavailable Unavailable Sabattus, Mariae Brilliant ELECTRON TUBE ASSEMBLER Unavailable Unavailable Sabattus, Mariae Rosanna ELECTRON TUBE ASSEMBLER Unavailable Unavailable Sabattus, Mariae Rosanna ELECTRON TUBE ASSEMBLER Unavailable Unavailable Benedicto, Mariae Rosanna ELECTRON TUBE ASSEMBLER Unavailable Unavailable Sabattus, Mariae Rosanna ELECTRON TUBE ASSEMBLER Unavailable Unavailable Benedicto, Mariae Rosanna ELECTRON TUBE ASSEMBLER Unavailable Unavailable Benedicto, Mariae Rosanna ELECTRON TUBE ASSEMBLER Unavailable Unavailable Benedicto, Mariae Brilliant ELECTRON TUBE ASSEMBLER Unavailable Unavailable Sabattus, Mariae Rosanna ELECTRON TUBE ASSEMBLER Unavailable Unavailable Sabattus, Mariae Brilliant ELECTRON TUBE ASSEMBLER Unavailable Unavailable Benedicto, Mariae Brilliant ELECTRON TUBE ASSEMBLER Unavailable Unavailable Sabattus, Mariae Brilliant ELECTRON TUBE ASSEMBLER Unavailable Unavailable Benedicto, Mariae Brilliant ELECTRON TUBE ASSEMBLER Unavailable Unavailable Sabattus, Mariae Brilliant ELECTRON TUBE ASSEMBLER Unavailable Unavailable Sabattus, Mariae Rosanna ELECTRON TUBE ASSEMBLER Unavailable Unavailable Sabattus, Mariae Brilliant ELECTRON TUBE ASSEMBLER Unavailable Unavailable Benedicto, Mariae Brilliant ELECTRON TUBE ASSEMBLER Unavailable Unavailable Aziza LOWERY MD Unavailable Unavailable Aziza LOWERY MD Unavailable Unavailable Aziza LOWERY MD Unavailable Unavailable Aziza LOWERY MD Unavailable Unavailable Aziza LOWERY MD Unavailable Unavailable Aizza LOWERY MD Unavailable Unavailable Aziza LOWERY MD [...] ROGER PA Unavailable Unavailable ZANDRA, B MICHELLE ELECTRON TUBE ASSEMBLER Unavailable Unavailable ZANDAR, B MICHELLE ELECTRON TUBE ASSEMBLER Unavailable Unavailable ZANDRA, B MICHELLE ELECTRON TUBE ASSEMBLER Unavailable Unavailable ZANDRA, B MICHELLE ELECTRON TUBE ASSEMBLER Unavailable Unavailable ZANDRA, B MICHELLE ELECTRON TUBE ASSEMBLER Unavailable Unavailable ZANDRA, B MICHELLE ELECTRON TUBE ASSEMBLER Unavailable Unavailable ZANDRA, B MICHELLE ELECTRON TUBE ASSEMBLER Unavailable Unavailable ZANDRA, B MICHELLE ELECTRON TUBE ASSEMBLER Unavailable Unavailable ZANDRA, B MICHELLE ELECTRON TUBE ASSEMBLER Unavailable Unavailable ZANDRA, B MICHELLE ELECTRON TUBE ASSEMBLER Unavailable Unavailable ZANDRA, B MICHELLE ELECTRON TUBE ASSEMBLER Unavailable Unavailable ZANDRA, B MICHELLE ELECTRON TUBE ASSEMBLER Unavailable Unavailable ZANDRA, B MICHELLE ELECTRON TUBE ASSEMBLER Unavailable Unavailable ZANDRA, B MICHELLE ELECTRON TUBE ASSEMBLER Unavailable Unavailable ZANDRA, B MICHELLE ELECTRON TUBE ASSEMBLER Unavailable Unavailable ZANDRA, B MICHELLE ELECTRON TUBE ASSEMBLER Unavailable Unavailable ZANDRA, B MICHELLE ELECTRON TUBE ASSEMBLER Unavailable Unavailable ZANDRA, B MICHELLE ELECTRON TUBE ASSEMBLER Unavailable Unavailable ZANDRA, B MICHELLE ELECTRON TUBE ASSEMBLER Unavailable Unavailable ZANDRA, B MICHELLE ELECTRON TUBE ASSEMBLER Unavailable Unavailable ZANDRA, B MICHELLE ELECTRON TUBE ASSEMBLER Unavailable Unavailable ZANDRA, B MICHELLE ELECTRON TUBE ASSEMBLER Unavailable Unavailable ZANDRA, B MICHELLE ELECTRON TUBE ASSEMBLER Unavailable Unavailable ZANDRA, B MICHELLE ELECTRON TUBE ASSEMBLER Unavailable Unavailable ZANDRA, B MICHELLE ELECTRON TUBE ASSEMBLER Unavailable Unavailable ZANDRA, B MICHELLE ELECTRON TUBE ASSEMBLER Unavailable Unavailable ZANDRA, B MICHELLE ELECTRON TUBE ASSEMBLER Unavailable Unavailable ZANDRA, B MICHELLE ELECTRON TUBE ASSEMBLER Unavailable Unavailable ZANDRA, B MICHELLE ELECTRON TUBE ASSEMBLER Unavailable Unavailable ZANDRA, B MICHELLE ELECTRON TUBE ASSEMBLER Unavailable Unavailable ZANDRA, B MICHELLE ELECTRON TUBE ASSEMBLER Unavailable Unavailable ZANDRA, B MICHELLE ELECTRON TUBE ASSEMBLER Unavailable Unavailable ZANDRA, B MICHELLE ELECTRON TUBE ASSEMBLER Unavailable Unavailable ZANDRA, B MICHELLE ELECTRON TUBE ASSEMBLER Unavailable Unavailable ZANDRA, B MICHELLE ELECTRON TUBE ASSEMBLER Unavailable Unavailable ZANDRA, B MICHELLE ELECTRON TUBE ASSEMBLER Unavailable Unavailable ZANDRA, B MICHELLE ELECTRON TUBE ASSEMBLER Unavailable Unavailable ZANDRA, B MICHELLE ELECTRON TUBE ASSEMBLER Unavailable Unavailable ZANDRA, B MICHELLE ELECTRON TUBE ASSEMBLER Unavailable Unavailable ZANDRA, B MICHELLE ELECTRON TUBE ASSEMBLER Unavailable Unavailable ZANDRA, B MICHELLE ELECTRON TUBE ASSEMBLER Unavailable Unavailable ZANDRA, B MICHELLE ELECTRON TUBE ASSEMBLER Unavailable Unavailable ZANDRA, B MICHELLE ELECTRON TUBE ASSEMBLER Unavailable Unavailable ZANDRA, B MICHELLE ELECTRON TUBE ASSEMBLER Unavailable Unavailable ZANDRA, B MICHELLE ELECTRON TUBE ASSEMBLER Unavailable Unavailable ZANDRA, B MICHELLE ELECTRON TUBE ASSEMBLER Unavailable Unavailable ZANDRA, B MICHELLE ELECTRON TUBE ASSEMBLER Unavailable Unavailable ZANDRA, B MICHELLE ELECTRON TUBE ASSEMBLER Unavailable Unavailable ZANDRA, B MICHELLE ELECTRON TUBE ASSEMBLER Unavailable Unavailable ZANDRA, B MICHELLE ELECTRON TUBE ASSEMBLER Unavailable Unavailable ZANDRA, B MICHELLE ELECTRON TUBE ASSEMBLER Unavailable Unavailable ZANDRA, B MICHELLE ELECTRON TUBE ASSEMBLER Unavailable Unavailable ZANDRA, B MICHELLE ELECTRON TUBE ASSEMBLER Unavailable Unavailable ZANDRA, B MICHELLE ELECTRON TUBE ASSEMBLER Unavailable Unavailable ZANDRA, B MICHELLE ELECTRON TUBE ASSEMBLER Unavailable Unavailable ZANDRA, B MICHELLE ELECTRON TUBE ASSEMBLER Unavailable Unavailable ZANDRA, B MICHELLE ELECTRON TUBE ASSEMBLER Unavailable Unavailable ZANDRA, B MICHELLE ELECTRON TUBE ASSEMBLER Unavailable Unavailable ZANDRA, B MICHELLE ELECTRON TUBE ASSEMBLER Unavailable Unavailable ZANDRA, B MICHELLE ELECTRON TUBE ASSEMBLER Unavailable Unavailable ZANDRA, B MICHELLE ELECTRON TUBE ASSEMBLER Unavailable Unavailable ZANDRA, B MICHELLE ELECTRON TUBE ASSEMBLER Unavailable Unavailable Chong, Shannon Shari PA Unavailable [...] Scot Coughlin MD Unavailable Unavailable Fish, Scot Couhglin MD Unavailable Unavailable FishScot MD Unavailable Unavailable [...] Unavailable Roberto, Andrade Thomas MD Unavailable Unavailable Robreto, Andrade Thomas MD Unavailable Unavailable Roberto, Andrade [...] is protected by Article 27-F of the [facility] Public Health law. If you continue you may have access to information: Regarding HIV / AIDS; Provided by facilities licensed or operated by the [facility] Office of Mental Health; or Provided by the [facility] Office for People With Developmental Disabilities. If such information is present, then the following [facility] mandated warning applies: This information has [...] law may result in a fine or intermediate sentence or both. A general authorization for the release of medical or other information is NOT sufficient authorization for further disc losure. Allergies and Adverse Reactions Type Description Substance Reaction Status Data Source(s ) Propensity to adverse reactions NOVOCAIN NOVOCAIN [facility] Family History Family Member Name Family Member Gender Family Member Status Date o f Status Description Data Source(s) Unknown Female Problem [facility] ([facility]) Unknown Unknown Problem [facility] ([facility] ) Unknown Unknown Problem [facility] ([facility] Unknown Unknown Problem [facility] ([facility] Encounters Encounter Providers Location Date Indications Data Source(s ) Unknown [address] [facility] [place] [address] 09/17/2021 12:00:00 AM EDT eCW1 ([facility]) Unknown [address] [facility] [place] [address] 08/26/2021 12:00:00 AM EDT eCW1 ([facility]) Unknown [address] [facility] [place] [address] 08/22/2021 12:00:00 AM EDT eCW1 ([facility]) Outpatient Attender: MICHELLE DE PAZ NP Physical Therapy 10:30:00 AM EDT [facility] ([facility]) Unknown [address] [facility] [place] [address] 08/18/2021 12:00:00 AM EDT eCW1 ([facility]) Unknown [address] [facility] [place] [address] 08/05/2021 12:00:00 AM EDT eCW1 ([facility]) [facility] 03[facility]00 PM EDT [facility] ([facility] Outpatient Attender: WALTER FINNEY [facility] Internal Med at [facility] 07/30/2021 01:40:00 PM EDT [facility] ([facility]) Outpatient Attender: EMILIO CRANE PAConsultant: Martha graves MD 07/29/2021 03:43:00 PM EDT - 07/29/2021 03:43:00 PM EDT [facility] Outpatient Attender: EMILIO FIN[facility] 07/29 03:40:00 PM EDT MED[facility] ([facility]) Outpatient<td ID="encounterTypeDescripti onID0">SURGICAL CLEARANCE</td><td>Rosanna Nimisha Diane NP</td><td>[facility]</td><td>07/25/2021</td><td>10:18AM</td><td>11:22AM</td><td><content ID="encounterDiagnosisID0-0">Chronic Kidney Disease (Nkf Classification)</content>, <content ID="encounterDiagnosisID0-1">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</content>, <content ID="encounterDiagnosisID0-2">Ureteral Stricture</content>, <content ID="encounterDiagnosisID0-3">Pituitary Macroadenoma</content></td> Attender: Rosanna Diane NP [facility], 07/25/2021 10:18:00 AM EDT - 07/25/2021 11:22:00 AM EDT Ureteral StrictureInfection and Inflamma tory Reaction Due To Ureteral StentChronic Kidney Disease (Nkf Classification)Ureteral Stricture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Chronic Kidney Disease (Nkf Classification)Pituitary MacroadenomaPituitary Macroadenoma [facility] ([facility]) Ureteral Stricture 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 Chronic Kidney Disease (Nkf Classificati on) Ureteral Stricture 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 Chronic Kidney Disease (Nkf Classificati on) Pituitary Macroadenoma Pituitary Macroadenoma Outpatient Attender: MALENA Gaitan/Gilson/Faheem hopkins/Gia 07/21/2021 10:30:00 AM EDT MED[facility] ([facility] [place] [address] [place] [address] 07/21/2021 12:00:00 AM EDT eCW1 ([facility]) Outpatient Attender: 0000{ UNION 06/19/2021 05:57:00 PM E DT [facility] Outpatient Attender: RADAMES FRANKS MD 06/19/2021 05 :57:00 PM EDT BENIGN NEOPLASM OF PITUITARY GLAND [facility] BENIGN NEOPLASM OF PITUITARY GLAND <td ID="encounterTypeDescriptionID2">STA NDARD OV</td><td>Martha Mejia MD</td><td>[facility]</td><td>06/12/2021</td><td>3:24PM</td><td>4:22PM</td><td><content ID="encounterDiagnosisID2-0">Encopresis</content>, <content ID="encounterDiagnosisID2-1">Acromegaly</content>, <content ID="encounterDiagnosisID2-2">Pituitary Macroadenoma</content>, <content ID="encounterDiagnosisID2-3">Chronic Kidney Disease Stage 1</content>, <content ID="encounterDiagnosisID2-4">Cardiomegaly</content>, <content ID="encounterDiagnosisID2-5">Mitral Regurgitation</content>, <content ID="encounterDiagnosisID2-6">Tricuspid Regurgitation</content>, <content ID="encounterDiagnosisID2-7">Iron Deficiency Anemia</content>, <content ID="encounterDiagnosisID2-8">Common Migraine Without Aura Without Intractable Migraine</content></td>Outpatient Attender: Martha Mejia MD [facility] 06/12/2021 03:24:00 PM EDT - 06/12/2021 04:22:00 PM ED T Common Migraine Without Aura Without Intractable MigraineIron Deficiency AnemiaTricuspid RegurgitationMitral RegurgitationCardiomegalyChronic Kidney Disease Stage 1AcromegalyEncopresisCommon Migraine Without Aura Without Intractable MigraineIron Deficiency AnemiaTricuspid RegurgitationMitral RegurgitationCardiomegalyChronic Kidney Disease Stage 1AcromegalyEncopresisCommon Migraine Without Aura Without Intractable MigraineIron Deficiency AnemiaTricuspid RegurgitationMitral RegurgitationCardiomegalyChronic Kidney Disease Stage 1AcromegalyEncopresisPituitary MacroadenomaPituitary MacroadenomaPituitary Macroadenoma [place] ([facility]) Common Migraine Without Aura Without Int ractable [...] ID="encounterTypeDescripti onID1">CLINICAL USE ONLY</td><td>Rosanna Diane NP</td><td>Family Medicine [facility]</td><td>07/14/2021</td><td>06/12/2021 2:42PM</td><td>06/12/2021 11:59PM</td><td></td> Attender: Rosanna Diane NP Family Medicine [facility] sharon 06/12/2021 02:42:00 PM EDT - 06/12/2021 11:59:00 PM EDT [place] ([facility]) Office Visit Attender: Layla Mayo MD Main office - [facility] 05/20/2021 02:45:00 PM EDT MED[facility] ([facility] Outpatient Attender: RADAMES FRANKS MD [facility] Internal Med at [place] 05/06/2021 01:00:00 PM EDT [facility] ([facility]) [place] [address] [place] [address] 05/05/2021 12:00:00 AM EDT eCW1 ([facility]) <td ID="encounterTypeDescriptionID3">EXT ENDED VISIT</td><td>Rosanna Diane DESTIN</td><td>[facility]</td><td>04/10/2021</td><td>2:52PM</td><td>3:29PM</td><td><content ID="encounterDiagnosisID3-0">Depression</content>, <content ID="encounterDiagnosisID3-1">Hyperlipidemia</content>, <content ID="encounterDiagnosisID3-2">Pituitary Neoplasm Benign</content>, <content ID="encounterDiagnosisID3-3">Migraine Headache</content></td>Outpatient Attender: Rosannamikala Diane NP [facility] 04/10/2021 02:52:00 PM EDT - 04/10/2021 03:29:00 PM EDT Pituitary Neoplasm BenignDepressionPitui tary Neoplasm BenignDepressionPituitary Neoplasm BenignDepressionPituitary Neoplasm BenignDepressionMigraine HeadacheMigraine HeadacheMigraine HeadacheMigraine HeadacheHyperlipidemiaHyperlipidemiaHyperlipidemiaHyperlipidemia [place] ([facility]) Pituitary Neoplasm Benign Depression Pituitary Neoplasm Benign Depression Pituitary Neoplasm Benign Depression Pituitary Neoplasm Benign Depression Migraine Headache Migraine Headache Migraine Headache Migraine Headache Hyperlipidemia Hyperlipidemia Hyperlipidemia Hyperlipidemia Outpatient Attender: TARA COBB [facility] 03/22 03:45:00 PM EDT [facility] ([facility] Outpatient Attender: Madyson Watters MD Physical Therapy 03/31 03:45:00 PM EDT [facility] ([facility] Outpatient Attender: JOHN CHAVEZ MD Medical Building 03/26 03:30:00 PM EDT MEDENT (John Chavez MD) Outpatient Attender: EMILIO CRANE PAConsultant: Martha graves MD 03/25/2021 03:13:00 PM EDT - 03/25/2021 03:13:00 PM EDT [facility] <td ID="encounterTypeDescriptionID4">STA NDARD OV</td><td>Martha Mejia MD</td><td>[facility],</td><td>03/05/2021</td><td>12:55PM</td><td>1:32PM</td><td><content ID="encounterDiagnosisID4-0">Thyroid Disorders</content>, <content ID="encounterDiagnosisID4-1">Diabetes Mellitus Type 2 in Nonobese</content>, <content ID="encounterDiagnosisID4-2">Chronic Obstructive Pulmonary Disease</content>, <content ID="encounterDiagnosisID4-3">Assessment of Difficulty with Balance</content>, <content ID="encounterDiagnosisID4- 4">Undiagnosed Cardiac Murmur</content></td>Outpatient Attender: Martha Mejia MD [facility], 03/05/2021 12:55:00 PM EDT - 03/05/2021 01:32:00 PM EDT Undiagnosed Cardiac MurmurAssessment of Difficulty with BalanceThyroid [...] DiseaseChronic Obstructive Pulmonary DiseaseChronic Obstructive Pulmonary Disease [place] ([facility]) Undiagnosed Cardiac Murmur Assessment of Difficulty with [...] Physical Therapy 02/20 02:45:00 PM EDT [facility] ([facility]) [place] [address] [facility] [place] [address] 02/17/2021 12:00:00 AM EDT eCW1 ([facility]) Outpatient Attender: Layla Mayo MD Main office - [facility] 02/10/2021 09:30:00 AM EDT MED[facility] ([facility]) Outpatient Attender: Madyson Watters MD Physical Therapy 02/04 09:45:00 AM EDT MED[facility] ([facility]) <td ID="encounterTypeDescriptionID6"> CONSULTATION</td><td>Rosanna Diane ELECTRON TUBE ASSEMBLER</td><td>[facility]</td><td>02/05/2021</td><td>01/29/2021 4:21PM</td><td>01/29/2021 11:59PM</td><td><content ID="encounterDiagnosisID6-0">Urinary Tract Infection</content></td>Outpatient Attender: Rosanna Diane NP [facility] 01/29/2021 04:21:00 PM EST - 01/29/2021 11:59:00 PM ES T Urinary Tract InfectionUrinary Tract InfectionUrinary Tract InfectionUrinary Tract InfectionUrinary Tract InfectionUrinary Tract InfectionUrinary Tract Infection [place] [facility] Urinary Tract Infection Urinary Tract Infection Urinary Tract Infection Urinary Tract Infection Urinary Tract Infection Urinary Tract Infection Urinary Tract Infection <td ID="encounterTypeDescriptionID7">RX UPDATE</td><td>Rosanna Diane NP</td><td>Family [facility]</td><td>02/05/2021</td><td>01/29/2021 4:09PM</td><td>01/29/2021 11:59PM</td><td></td>Outpatient Attender: Rosanna Diane NP [facility] Medicine [facility], 01/29/2021 04:09:00 PM EST - 01/29/2021 11:59:00 PM EST [facility] ([facility]) <td ID="encounterTypeDescriptionID5">CLI NICAL USE ONLY</td><td>Rosanna Diane ELECTRON TUBE ASSEMBLER</td><td>[facility],</td><td>02/10/2021</td><td>01/29/2021 2:20PM</td><td>01/29/2021 11:59PM</td><td></td>Outpatient Attender: Rosanna Diane NP [facility], 01/29/2021 02:20:00 PM EST - 01/29/2021 11:59:00 PM EST [facility] ([facility]) <td ID="encounterTypeDescriptionID8">JACINTO GICAL CLEARANCE</td><td>Rosanna Diane ELECTRON TUBE ASSEMBLER</td><td>[facility],</td><td>01/29/2021</td><td>10:18AM</td><td>10:56AM</td><td><content ID="encounterDiagnosisID8-0">Possible Stroke Syndrome</content></td>Outpatient Attender: Rosanna Diane NP [facility], 01/29/2021 10:18:00 AM EST - 01/29/2021 10:56:00 AM EST Possible Stroke SyndromePossible Stroke SyndromePossible Stroke SyndromePossible Stroke SyndromePossible Stroke SyndromePossible Stroke SyndromePossible Stroke SyndromePossible Stroke SyndromePossible Stroke Syndrome [facility] ([facility]) Possible Stroke Syndrome Possible Stroke Syndrome Possible Stroke Syndrome Possible Stroke Syndrome Possible Stroke Syndrome Possible Stroke Syndrome Possible Stroke Syndrome Possible Stroke Syndrome Possible Stroke Syndrome Outpatient<td ID="encounterTypeDescripti onID9">SURGICAL CLEARANCE</td><td>Rosanna Bansal Benedicto WEIR</td><td>[facility]</td><td>01/22/2021</td><td>10:57AM</td><td>12:00PM</td><td><content ID="encounterDiagnosisID9-0">Disturbance of Gait</content>, <content ID="encounterDiagnosisID9-1">Possible Stroke Syndrome</content></td> Attender: Rosanna Diane NP [facility] 01/22/2021 10:57:00 AM EST - 01/22/2021 12:00:00 PM EST Possible Stroke SyndromeDisturbance of G aitPossible Stroke SyndromeDisturbance of GaitPossible Stroke SyndromeDisturbance of GaitPossible Stroke SyndromeDisturbance of GaitPossible Stroke SyndromeDis turbance of GaitPossible Stroke SyndromeDisturbance of GaitPossible Stroke SyndromeDisturbance of GaitPossible Stroke SyndromeDisturbance of GaitPossible Stroke SyndromeDisturbance of GaitPossible Stroke SyndromeDisturbance of Gait [facility] ([facility]) Possible Stroke Syndrome Disturbance of Gait Possible Stroke Syndrome Disturbance of Gait Possible Stroke Syndrome Disturbance of Gait Possible Stroke Syndrome Disturbance of Gait Possible Stroke Syndrome Disturbance of Gait Possible Stroke Syndrome Disturbance of Gait Possible Stroke Syndrome Disturbance of Gait Possible Stroke Syndrome Disturbance of Gait Possible Stroke Syndrome Disturbance of Gait Possible Stroke Syndrome Disturbance of Gait [place] [address] [facility] [place] [address] 01/22/2021 12:00:00 AM EST eCW1 ([facility]) Outpatient Attender: TARA COBB [facility] 12/2020 12:45:00 PM EST PAT ([facility] Outpatient Attender: EMILIO CRANE PAConsultant: Martha graves MD 01/20/2021 03:52:00 PM EST - 01/20/2021 03:52:00 PM EST [facility] Unknown [address] [facility] [place] [address] 01/20/2021 12:00:00 AM EST eCW1 ([facility]) <td ID="[id number]">RX UPDATE</td><td>Rosanna Diane NP</td><td></td><td>01/21/2021</td><td>01/13/2021 4:25PM</td><td>01/13/2021 11:59PM</td><td></td>Outpatient Attender: Rosanna Diane NP 01/13/2021 04:25:00 PM EST - 01/13/2021 11:59:00 PM EST [facility] ([facility]) Outpatient<td ID="encounterTypeDescripti onID12">EXTENDED VISIT</td><td>Rosanna iDane NP</td><td>[facility],</td><td>01/13/2021</td><td>2:11PM</td><td>3:46PM</td><td><content ID="wwzvturyhUadzvbzbcHI05-9">Disorder of Muscle Weakness (Generalized)</content>, <content ID="lovcmivbaHadvfmoxrBH04-2">Allergic Rhinitis</content>, <content ID="zkkksokzeYzshuojnoSK28-4">Migraine Headache</content>, <content ID="ablvuwvriWpcttzszvEG94- 3">Hyperlipidemia</content>, <content ID="rqpcslvqpVvehurvckQK84-5">Emphysema</content></td> Attender: Rosanna Diane NP [facility], 01/13/2021 02:11:00 PM EST - 01/13/2021 03:46:00 [...] Migraine HeadacheMigraine HeadacheMigraine HeadacheMigraine HeadacheHyperlipidemiaHyperlipidemiaHyperlipidemiaHyperlipidemiaHyperlipidemiaHy perlipidemiaHyperlipidemiaHyperlipidemiaHyperlipidemiaHyperl ipidemiaHyperlipidemiaHyperlipidemia [place] ([facility]) Emphysema Allergic Rhinitis Disorder of Muscle Weakness [...] Outpatient<td ID="encounterTypeDescripti onID11">MEDICARE ANNUAL WELLNESS/RISK ASSESSMENT</td><td>Rosanna Diane NP</td><td>[facility],</td><td>01/13/2021</td><td>2:11PM</td><td>3:46PM</td><td><content ID="hbadrdynwKzeqqnkmfCG23-3">Routine History and Physical Adult (18 - 64 Yrs)</content></td> Attender: Rosanna Diane NP [facility] 01/13/2021 02:11:00 PM EST - 01/13/2021 03:46:00 [...] and Physical Adult (18 - 64 Yrs) [place] ([facility]) Routine History and Physical Adult (18 - [...] Physical Therapy 01/06 10:30:00 AM EST [facility] ([facility]) Unknown [address] [place] [address] 01/02/2021 12:00:00 AM EST eCW1 ([facility]) Outpatient [address] [place] [address] 12/31/2020 12:00:00 AM EST eCW1 ([facility]) Unknown [address] [facility] [place] [address] 12/09/2020 12:00:00 AM EST eCW1 ([facility]) Outpatient Attender: ROGER pierce 11/23/2020 01:25:00 PM EST [facility] ([facility] Outpatient Attender: TARA COBB [facility] Office 10/23 01:00:00 PM EST [facility] ([facility] Outpatient Attender: Shari pierce 11/19/2020 12:15:00 PM EST [facility] ([facility]) Outpatient Attender: EMILIO CRANE PAConsultant: Martha graves MD 10/22/2020 03:38:00 PM EST - 10/22/2020 03:38:00 PM EST [facility] Unknown [id number] [address] 10/08/2020 12:00:00 AM EST eCW1 (Formerly [facility]) <td ID="[id number]">RX UPDATE</td><td>Rosanna Diane NP</td><td>[facility]</td><td>11/11/2020</td><td>10/03/2020 5:16PM</td><td>10/03/2020 11:59PM</td><td></td>Outpatient Attender: Rosanna Diane NP [facility] 10/03/2020 05:16:00 PM EST - 10/03/2020 11:59:00 PM EST [facility] ([facility]) Outpatient<td ID="encounterTypeDescripti [email or web address]">STANDARD OV</td><td>Rosanna Diane NP</td><td>[facility]</td><td>10/03/2020</td><td>3:39PM</td><td>4:41PM</td><td><content ID="[id number]">Urge Incontinence of Urine</content>, <content ID="[id number]">Obsessive Compulsive Disorder</content></td> Attender: Rosanna Diane NP Family Medicine [facility] 10/03/2020 03:39:00 PM EST - 10/03/2020 04:41:00 PM EST Obsessive Compulsive DisorderUrge Incontinence of UrineObsessive Compulsive DisorderUrge Incontinence of UrineObsessive Compulsive DisorderUrge Incontinence of UrineObsessive Compulsive DisorderUrge Incontinence of UrineObsessive Compulsive DisorderUrge Incontinence of UrineObsessive Compulsive DisorderUrge Incontinence of UrineObsessive Compulsive DisorderUrge Incontinence of UrineObsessive Compulsive DisorderUrge I ncontinence of UrineObsessive Compulsive DisorderUrge Incontinence of UrineObsessive Compulsive DisorderUrge Incontinence of UrineObsessive Compulsive DisorderUrge Incontinence of UrineObsessive Compulsive DisorderUrge Incontinence of UrineObsessive Compulsive DisorderUrge Incontinence of Urine [facility] ([facility]) Obsessive Compulsive Disorder Urge Incontinence of Urine [...] of Urine Outpatient<td ID="encounterTypeDescripti [email or web address]">E-VISIT E/M</td><td>Rosanna Diane NP</td><td>[facility]</td><td>12/10/2020</td><td>10/03/2020 11:39AM</td><td>10/03/2020 11:59PM</td><td><content ID="[id number]">Muscle Hematoma</content></td> Attender: oRsanna Diane NP [facility] 10/03/2020 11:39:00 AM EST - 10/03/2020 11:59:00 PM ES T Muscle HematomaMuscle HematomaMuscle HematomaMuscle HematomaMuscle HematomaMuscle HematomaMuscle HematomaMuscle HematomaMuscle HematomaMuscle HematomaMuscle HematomaMuscle Hematoma [place] ([facility]) Muscle Hematoma Muscle Hematoma Muscle Hematoma Muscle Hematoma Muscle Hematoma Muscle Hematoma Muscle Hematoma Muscle Hematoma Muscle Hematoma Muscle Hematoma Muscle Hematoma Muscle Hematoma <td ID="[id number]">CL INICAL USE ONLY</td><td>Martha Mejia MD</td><td>[facility]</td><td>10/10/2020</td><td>10/03/2020 10:26AM</td><td>10/03/2020 11:59PM</td><td></td>Outpatient Attender: Martha Mejia MD Family Medicine [facility], 10/03/2020 10:26:00 AM EST - 10/03/2020 11:59:00 PM EST [place] ([facility]) Outpatient Attender: Madyson Watters MD Physical Therapy 09/03 02:30:00 PM EDT [facility] ([facility] ) Outpatient Attender: TARA COBB [facility] 08/22 09:30:00 AM EDT [facility] ([facility] Outpatient Attender: EMILIO FINNEY [facility] 08/23 03:20:00 PM EDT [facility] ([facility]) Outpatient Attender: EMILIO CRANE PAConsultant: Martha graves MD 08/23/2020 03:05:00 PM EDT - 08/23/2020 03:05:00 PM EDT [facility] Outpatient<td ID="encounterTypeDescripti [email or web address]">E-VISIT E/M</td><td>Rosanna Nimisha Diane NP</td><td>Family [facility]</td><td>08/21/2020</td><td>4:03PM</td><td>5:09PM</td><td></td> Attender: Rosanna Diane NP Family Medicine [facility] 08/21/2020 04:03:00 PM EDT - 08/21/2020 05:09:00 PM EDT [place] ([facility] <td ID="[id number]">RX UPDATE</td><td>Martha Mejia MD</td><td>Family Medicine [facility]</td><td>09/26/2020</td><td>08/21/2020 1:06PM</td><td>08/21/2020 11:59PM</td><td></td>Outpatient Attender: Martha Mejia MD [facility], 08/21/2020 01:06:00 PM EDT - 08/21/2020 11:59:00 PM EDT [place] ([facility]) Outpatient Attender: EMILIO FINNEY [facility] 07/26 03:00:00 [facility] Outpatient Attender: EMILIO Ac ferguson: Javi Oconnell MDConsultant: Martha Mejia MD 07/26/2020 02:50:00 PM EDT - 07/26/2020 02:50:0 0 PM EDT [facility] Outpatient<td ID="encounterTypeDescripti [email or web address]">STANDARD OV</td><td>Martha Mejia MD</td><td>[facility]</td><td>07/24/2020</td><td>9:02AM</td><td>9:53AM</td><td><content ID="[id number]">Allergic Rhinitis</content>, <content ID="[id number]">Diabetes Mellitus Type 2 in Nonobese</content>, <content ID="[id number]">Organic Sleep Apnea Obstructive Adult</content>, <content ID="[id number]">Obsessive Compulsive Disorder</content></td> Attender: Martha Mejia MD [facility], 07/24/2020 09:02:00 AM EDT - 07/24/2020 09:53:00 [...] in NonobeseDiabetes Mellitus Type 2 in Nonobese [place] ([facility]) Obsessive Compulsive Disorder Obsessive Compulsive Disorder Obsessive [...] Complete: YESThis Data wa s Submitted to [facility] Via [email or web address]. Moderna Covid-19 Sars-Cov-2, mRNA, LNP-S, PF, 100 mcg/ 0.5 mL 12/25/2020 11:00:00 PM EST completed [facility] ([facility]) COVID-19 VACCINE Moderna 11/28/2020 12:00:00 AM EST completed [facility] Vaccine Series Complete: NOThis Data was Submitted to [facility] Via [email or web address]. Moderna Covid-19 Sars-Cov-2, mRNA, LNP-S, PF, 100 mcg/ 0.5 mL 11/27/2020 11:00:00 PM EST completed [facility] ([facility]) Medications Medication Brand Name Start Date Product Form Dose Route Admi nistrative Instructions Pharmacy Instructions Status Indications Reaction Description Data Source(s) NITROFURANTOIN, MACROCRYSTALS 25 MG / Ni trofurantoin, Monohydrate 75 MG Oral Capsule [Macrobid] Macrobid 100 MG Macrobid 100 MG 08/05/2021 12:00:00 AM EDT active Macrobid 100 MG eCW1 ([facility]) NITROFURANTOIN, MACROCRYSTALS 25 MG / Ni trofurantoin, Monohydrate 75 MG Oral Capsule [Macrobid] Macrobid 100 MG Macrobid 100 MG 08/05/2021 12:00:00 AM EDT active Macrobid 100 MG eCW1 ([facility]) NITROFURANTOIN, MACROCRYSTALS 25 MG / Ni trofurantoin, Monohydrate 75 MG Oral Capsule [Macrobid] Macrobid 100 MG Macrobid 100 MG 08/05/2021 12:00:00 AM EDT active Macrobid 100 MG eCW1 ([facility]) NITROFURANTOIN, MACROCRYSTALS 25 MG / Ni trofurantoin, Monohydrate 75 MG Oral Capsule [Macrobid] Macrobid 100 MG Macrobid 100 MG 08/05/2021 12:00:00 AM EDT active Macrobid 100 MG eCW1 ([facility]) NITROFURANTOIN, MACROCRYSTALS 25 MG / Ni trofurantoin, Monohydrate 75 MG Oral Capsule [Macrobid] Macrobid 100 MG Macrobid 100 MG 08/05/2021 12:00:00 AM EDT active Macrobid 100 MG eCW1 ([facility]) cocoa butter 0.884 MG/MG / Phenylephrine Hydrochloride 0.0025 MG/MG Rectal Suppository Preparation H 07/29/2021 12:00:00 AM EDT active [facility] ([facility], ) Huggies Pull-Ups Miscellaneous Huggies Pull-Ups Miscellaneou s 06/12/2021 12:00:00 AM EDT completed Huggi es Pull-Ups [place] ([facility]) Fenofibrate 48 MG Oral Tablet Fenofibrate 48 MG Oral Tablet 06/12/2021 12:00:00 AM EDT active fenofibrate 48 MG Oral Tablet [place] ([facility]) 12 HR Bupropion Hydrochloride 100 MG Ext ended Release Oral Tablet buPROPion HCl ER (SR) 100 MG Oral Tablet Extended Release 12 Hour buPROPion HCl ER (SR) 100 MG Oral Tablet Extended Release 12 Hour 06/12/2021 12:00:00 AM EDT active 12 HR bupropion hydrochloride 10 0 MG Extended Release Oral Tablet [facility]) Omeprazole 20 MG Delayed Release Oral Ca psule Omeprazole 20 MG Oral Capsule Delayed Release Omeprazole 20 MG Oral Capsule Delayed Release 06/12/20 12:00:00 AM EDT active omeprazole 20 MG Delayed Release Oral Capsule [facility]) cetirizine hydrochloride 10 MG Oral Tablet Cetirizine HCl 10 MG Oral Tablet Cetirizine HCl 10 MG Oral Tablet 06/12/2021 12:00:00 AM EDT active cetirizine hydrochloride 10 MG Oral Tablet [facility] ([facility]) Sumatriptan 25 MG Oral Tablet SUMAtriptan Succinate 25 MG Oral Tablet SUMAtriptan Succinate 25 MG Oral Tablet 06/12/2021 12:00:00 AM EDT active sumatriptan 25 MG [facility] carbamide peroxide 65 MG/ML Otic Solutio n [Murine Ear] Murine Ear 6.5% Otic Solution Murine Ear 6.5% Otic Solution 06/12/2021 12:00:00 AM EDT active carbamide peroxide 65 MG/ML Otic Solution [Murine Ear] [facility]) Huggies Pull-Ups Miscellaneous Huggies Pull-Ups Miscellaneou s 06/12/2021 12:00:00 AM EDT aborted Huggies Pull-Ups [facility]) Multivitamins Oral Capsule Multivitamins Oral Capsule 2020 12:00:00 AM EDT 1 [facility] gabapentin 300 MG Oral Capsule Gabapentin 300 MG Oral Capsule Gabapentin 300 MG Oral Capsule 06/12/2021 12:00:00 AM EDT activ e gabapentin 300 MG Oral Capsule [facility]) Cholecalciferol 1000 UNT Oral Capsule Vitamin D3 25 MC G (1000 UT) Oral Capsule Vitamin D3 25 MCG (1000 UT) Oral Capsule 06/12/2021 12:00:00 AM EDT active cholecalciferol 0.025 MG Oral Ca psule [facility]) Magnesium Oxide 400 MG Oral Tablet Magne sium Oxide 400 (241.3 Mg) MG Oral Tablet Magnesium Oxide 400 (241.3 Mg) MG Oral Tablet 06/12/2021 12:00:00 AM EDT active magnesium oxide 400 MG Or al Tablet [facility]) Simvastatin 40 MG Oral Tablet Simvastatin 40 MG Oral Tablet 06/12/2021 12:00:00 AM EDT 1 active simvastatin 40 MG Oral Tablet [facility]) 7 ACTUAT umeclidinium 0.0625 MG/ACTUAT D ry Powder Inhaler [Incruse] Incruse Ellipta 62.5 MCG/INH Inhalation Aerosol Powder Breath Activated Incruse Ellipta 62.5 MCG/INH Inhalation Aerosol Powder Breath Activated 06/12/2021 12:00:00 AM EDT active 7 ACTUAT umeclidinium 0.0625 MG/ACTUAT Dry Powder Inhaler [Incruse] [place] ([facility]) ammonium lactate 120 MG/ML Topical Lotion Ammonium [place] 12% External Lotion Ammonium Lactate 12% External Lotion 06/12/2021 12:00:00 AM EDT active ammonium lactate 120 MG/ML Topic al Lotion [place] ([facility]) ferrous sulfate 325 MG Oral Tablet Ferrous Sulfate 325 (65 Fe) MG Oral Tablet Ferrous Sulfate 325 (65 Fe) MG Oral Tablet 06/12/2021 12:00:00 AM EDT active ferrous sulfate 325 MG Oral Tabl et [place] ([facility]) Alendronic acid 70 MG Oral Tablet Alendronate Sodium 7 0 MG Oral Tablet Alendronate Sodium 70 MG Oral Tablet 06/01/2021 12:00:00 AM EDT active alendronic acid 70 MG Oral Table t [place] ([facility]) Fluticasone Propionate 50 MCG/ACT Nasal Suspension Flu ticasone Propionate 50 MCG/ACT Nasal Suspension 05/28/2021 12:00:00 AM EDT active fluticasone propionate 0.05 MG/ACTUAT Metered Dose Nasal [place] ([facility]) ferrous sulfate 325 MG Oral Tablet Ferrous Sulfate 325 (65 Fe) MG Oral Tablet Ferrous Sulfate 325 (65 Fe) MG Oral Tablet 04/10/2021 12:00:00 AM EDT aborted ferrous sulfate 325 MG Oral Tabl et [place] ([facility]) Fenofibrate 48 MG Oral Tablet Fenofibrate 48 MG Oral Tablet 04/10/2021 12:00:00 AM EDT aborted fenofibrate 48 M G Oral Tablet [place] ([facility]) gabapentin 300 MG Oral Capsule Gabapentin 300 MG Oral Capsule Gabapentin 300 MG Oral Capsule 04/10/2021 12:00:00 AM EDT abort ed gabapentin 300 MG Oral Capsule [place] ([facility]) 12 HR Bupropion Hydrochloride 100 MG Ext ended Release Oral Tablet buPROPion HCl ER (SR) 100 MG Oral Tablet Extended Release 12 Hour buPROPion HCl ER (SR) 100 MG Oral Tablet Extended Release 12 Hour 04/10/2021 12:00:00 AM EDT aborted 12 HR bupropion hydrochloride 10 0 MG Extended Release Oral Tablet [facility]) Multivitamins Oral Capsule Multivitamins Oral Capsule 2020 12:00:00 AM EDT 1 aborted [facility]amins [facility] cetirizine hydrochloride 10 MG Oral Tablet Cetirizine HCl 10 MG Oral Tablet Cetirizine HCl 10 MG Oral Tablet 04/04/2021 12:00:00 AM EDT aborted cetirizine hydrochloride 10 MG Oral Tablet [facility] ([facility]) Fiber-Lax 625 MG Oral Tablet Fiber-Lax 625 MG Oral Tablet 12:00:00 AM EDT aborted Fiber-Lax [facility] ([facility]) Omeprazole 20 MG Delayed Release Oral Ca psule Omeprazole 20 MG Oral Capsule Delayed Release Omeprazole 20 MG Oral Capsule Delayed Release 04/04/20 12:00:00 AM EDT aborted omeprazole 20 MG Delayed Release Oral Capsule [place] ([facility]) Dobutamine IV Injection 250MG 04/02/2021 12:00:00 AM EDT completed [facility] (John stephenson MD) Medication administered onsite Technetium TC 99M Sestamibi 04/02/2021 12:00:00 AM EDT completed [facility] (John Chavez MD) Medication administered onsite Sumatriptan 25 MG Oral Tablet SUMAtriptan Succinate 25 MG Oral Tablet SUMAtriptan Succinate 25 MG Oral Tablet 04/01/2021 12:00:00 AM EDT aborted sumatriptan 25 MG Oral Tablet [facility] ([facility]) 7 ACTUAT umeclidinium 0.0625 MG/ACTUAT D ry Powder Inhaler [Incruse] Incruse Ellipta 62.5 MCG/INH Inhalation Aerosol Powder Breath Activated Incruse Ellipta 62.5 MCG/INH Inhalation Aerosol Powder Breath Activated 04/01/2021 12:00:00 AM EDT aborted 7 ACTUAT umeclidinium 0.0625 MG/ACTUAT Dry Powder Inhaler [Incruse] [place] ([facility]) Cholecalciferol 1000 UNT Oral Capsule Vitamin D3 25 MC G (1000 UT) Oral Capsule Vitamin D3 25 MCG (1000 UT) Oral Capsule 03/20/2021 12:00:00 AM EDT aborted cholecalciferol 0.025 MG Oral Ca psule [facility] ([facility]) Magnesium Oxide 400 MG Oral Tablet Magne sium Oxide 400 (241.3 Mg) MG Oral Tablet Magnesium Oxide 400 (241.3 Mg) MG Oral Tablet 03/14/2021 12:00:00 AM EDT aborted magnesium oxide 400 MG Or al Tablet [place] ([facility]) Alendronic acid 70 MG Oral Tablet Alendronate Sodium 7 0 MG Oral Tablet Alendronate Sodium 70 MG Oral Tablet 03/05/2021 12:00:00 AM EDT aborted alendronic acid 70 MG Oral Table t [place] ([facility]) carbamide peroxide 65 MG/ML Otic Solutio n [Murine Ear] Murine Ear 6.5% Otic Solution Murine Ear 6.5% Otic Solution 03/05/2021 12:00:00 AM EDT aborted carbamide peroxide 65 MG/ML Otic Solution [Murine Ear] [place] ([facility]) Magnesium Oxide 400 MG Oral Tablet Magnesium Oxide 400 MG Or al Tablet 03/05/2021 12:00:00 AM EDT aborted magnesi um oxide 400 MG Oral Tablet [place] ([facility]) Fluticasone Propionate 50 MCG/ACT Nasal Suspension Flu ticasone Propionate 50 MCG/ACT Nasal Suspension 03/05/2021 12:00:00 AM EDT 2 aborted fluticasone propionate 0.05 MG/ACTUAT Metered Dose Nasal [place] ([facility]) Huggies Pull-Ups Miscellaneous Huggies Pull-Ups Miscellaneou s 03/05/2021 12:00:00 AM EDT aborted Huggies Pull-Ups [place] ([facility]) Simvastatin 40 MG Oral Tablet Simvastatin 40 MG Oral Tablet 03/05/2021 12:00:00 AM EDT 1 aborted simvastatin 40 M G Oral Tablet [place] ([facility]) 12 HR Bupropion Hydrochloride 100 MG Ext ended Release Oral Tablet buPROPion HCl ER (SR) 100 MG Oral Tablet Extended Release 12 Hour buPROPion HCl ER (SR) 100 MG Oral Tablet Extended Release 12 Hour 02/08/2021 12:00:00 AM EDT aborted 12 HR bupropion hydrochloride 10 0 MG Extended Release Oral Tablet [place] ([facility]) Cephalexin 500 MG Oral Capsule Cephalexin 500 MG Oral Capsul e 02/05/2021 12:00:00 AM EDT aborted cephale dayan 500 MG Oral Capsule [facility]) Multivitamins Oral Capsule Multivitamins Oral Capsule 2020 12:00:00 AM EST 1 aborted [facility] NITROFURANTOIN, MACROCRYSTALS 25 MG / Ni trofurantoin, Monohydrate 75 MG Oral Capsule [Macrobid] Macrobid 100 MG Macrobid 100 MG 01/20/2021 12:00:00 AM EST active Macrobid 100 MG eCW1 ([facility]) NITROFURANTOIN, MACROCRYSTALS 25 MG / Ni trofurantoin, Monohydrate 75 MG Oral Capsule [Macrobid] Macrobid 100 MG Macrobid 100 MG 01/20/2021 12:00:00 AM EST active Macrobid 100 MG eCW1 ([facility]) NITROFURANTOIN, MACROCRYSTALS 25 MG / Ni trofurantoin, Monohydrate 75 MG Oral Capsule [Macrobid] Macrobid 100 MG Macrobid 100 MG 01/20/2021 12:00:00 AM EST active Macrobid 100 MG eCW1 ([facility]) NITROFURANTOIN, MACROCRYSTALS 25 MG / Ni trofurantoin, Monohydrate 75 MG Oral Capsule [Macrobid] Macrobid 100 MG Macrobid 100 MG 01/20/2021 12:00:00 AM EST active Macrobid 100 MG eCW1 ([facility]) Omeprazole 20 MG Delayed Release Oral Ca psule Omeprazole 20 MG Oral Capsule Delayed Release Omeprazole 20 MG Oral Capsule Delayed Release 01/13/20 12:00:00 AM EST aborted omeprazole 20 MG Delayed Release Oral Capsule [place] ([facility]) gabapentin 300 MG Oral Capsule Gabapentin 300 MG Oral Capsule Gabapentin 300 MG Oral Capsule 01/13/2021 12:00:00 AM EST abort ed gabapentin 300 MG Oral Capsule [place] ([facility]) 7 ACTUAT umeclidinium 0.0625 MG/ACTUAT D ry Powder Inhaler [Incruse] Incruse Ellipta 62.5 MCG/INH Inhalation Aerosol Powder Breath Activated Incruse Ellipta 62.5 MCG/INH Inhalation Aerosol Powder Breath Activated 01/13/2021 12:00:00 AM EST aborted 7 ACTUAT umeclidinium 0.0625 MG/ACTUAT Dry Powder Inhaler [Incruse] [place] ([facility]) Sumatriptan 25 MG Oral Tablet SUMAtriptan Succinate 25 MG Oral Tablet SUMAtriptan Succinate 25 MG Oral Tablet 01/13/2021 12:00:00 AM EST aborted sumatriptan 25 MG Oral Tablet [facility] cetirizine hydrochloride 10 MG Oral Tablet Cetirizine HCl 10 MG Oral Tablet Cetirizine HCl 10 MG Oral Tablet 01/13/2021 12:00:00 AM EST aborted cetirizine hydrochloride 10 MG Oral Tablet [place] ([facility]) Fenofibrate 48 MG Oral Tablet Fenofibrate 48 MG Oral Tablet 01/13/2021 12:00:00 AM EST aborted fenofibrate 48 M G Oral Tablet [place] ([facility]) ferrous sulfate 325 MG Oral Tablet Ferrous Sulfate 325 (65 Fe) MG Oral Tablet Ferrous Sulfate 325 (65 Fe) MG Oral Tablet 01/13/2021 12:00:00 AM EST aborted ferrous sulfate 325 MG Oral Tabl et [place] ([facility]) calcium polycarbophil 625 MG Oral Tablet [FiberCon] Fi berCon 625 MG Oral Tablet FiberCon 625 MG Oral Tablet 01/13/2021 12:00:00 AM EST aborted calcium polycarbophil 625 MG Oral Tablet [FiberCon] [place] ([facility]) ferrous sulfate 325 MG Oral Tablet Ferrous Sulfate 325 (65 Fe) MG Oral Tablet Ferrous Sulfate 325 (65 Fe) MG Oral Tablet 01/10/2021 12:00:00 AM EST aborted ferrous sulfate 325 MG Oral Tabl et [place] ([facility]) Alendronic acid 70 MG Oral Tablet Alendronate Sodium 7 0 MG Oral Tablet Alendronate Sodium 70 MG Oral Tablet 01/07/2021 12:00:00 AM EST aborted alendronic acid 70 MG Oral Table t [place] ([facility]) Sure Comfort [place] 32G X 6 MM Miscellaneous Sure Comfort Pen [place] 32G X 6 MM Miscellaneous 01/02/2021 12:00:00 AM EST aborted Sure Comfort [place] ([facility]) Glucose 4000 MG Chewable Tablet [Dex4] Dex4 Glucose 12:00:00 AM EST active [facility] ( [facility]) Glucose Tabs 01/01/2021 12:00:00 AM EST compl eted [facility] ([facility]) Fluticasone Propionate 50 MCG/ACT Nasal Suspension Flu ticasone Propionate 50 MCG/ACT Nasal Suspension 12/27/2020 12:00:00 AM EST 2 aborted fluticasone propionate 0.05 MG/ACTUAT Metered Dose Nasal [place] ([facility]) Magnesium Oxide 400 MG Oral Tablet Magnesium Oxide 400 MG Or al Tablet 12/20/2020 12:00:00 AM EST aborted magnes ium oxide 400 MG Oral Tablet [place] ([facility]) carbamide peroxide 65 MG/ML Otic Solutio n [Murine Ear] Murine Ear 6.5% Otic Solution Murine Ear 6.5% Otic Solution 12/17/2020 12:00:00 AM EST aborted carbamide peroxide 65 MG/ML Otic Solution [Murine Ear] [facility]) ferrous sulfate 325 MG Oral Tablet Ferrous Sulfate 325 (65 Fe) MG Oral Tablet Ferrous Sulfate 325 (65 Fe) MG Oral Tablet 12/13/2020 12:00:00 AM EST aborted ferrous sulfate 325 MG Oral Tabl et [place] ([facility]) ammonium lactate 120 MG/ML Topical Lotion Ammonium [place] 12% External Lotion Ammonium Lactate 12% External Lotion 12/08/2020 12:00:00 AM EST aborted ammonium lactate 120 MG/ML Topic al Lotion [place] ([facility]) Cholecalciferol 1000 UNT Oral Capsule Vitamin D3 25 MC G (1000 UT) Oral Capsule Vitamin D3 25 MCG (1000 UT) Oral Capsule 12/05/2020 12:00:00 AM EST aborted cholecalciferol 0.025 MG Oral Ca psule [place] ([facility]) Simvastatin 40 MG Oral Tablet Simvastatin 40 MG Oral Tablet 12/05/2020 12:00:00 AM EST 1 aborted simvastatin 40 M G Oral Tablet [facility]) 12 HR Bupropion Hydrochloride 100 MG Ext ended Release Oral Tablet buPROPion HCl ER (SR) 100 MG Oral Tablet Extended Release 12 Hour buPROPion HCl ER (SR) 100 MG Oral Tablet Extended Release 12 Hour 11/25/2020 12:00:00 AM EST aborted 12 HR bupropion hydrochloride 10 0 MG Extended Release Oral Tablet [place] ([facility]) Cephalexin 500 MG Oral Tablet Cephalexin 11/23/2020 12:00:00 AM EST ORAL active [facility] ([facility]) calcium polycarbophil 625 MG Oral Tablet [FiberCon] Fi berCon 625 MG Oral Tablet FiberCon 625 MG Oral Tablet 11/19/2020 12:00:00 AM EST aborted calcium polycarbophil 625 MG Oral Tablet [FiberCon] [place] ([facility]) Omeprazole 20 MG Delayed Release Oral Ca psule Omeprazole 20 MG Oral Capsule Delayed Release Omeprazole 20 MG Oral Capsule Delayed Release 11/11/20 12:00:00 AM EST aborted omeprazole 20 MG Delayed Release Oral Capsule [facility]) gabapentin 300 MG Oral Capsule Gabapentin 300 MG Oral Capsule Gabapentin 300 MG Oral Capsule 11/11/2020 12:00:00 AM EST abort ed gabapentin 300 MG Oral Capsule [place] ([facility]) cetirizine hydrochloride 10 MG Oral Tablet Cetirizine HCl 10 MG Oral Tablet Cetirizine HCl 10 MG Oral Tablet 11/05/2020 12:00:00 AM EST aborted cetirizine hydrochloride 10 MG Oral Tablet [facility] ([facility]) Fenofibrate 48 MG Oral Tablet Fenofibrate 48 MG Oral Tablet 11/05/2020 12:00:00 AM EST aborted fenofibrate 48 M G Oral Tablet [place] ([facility]) 7 ACTUAT umeclidinium 0.0625 MG/ACTUAT D ry Powder Inhaler [Incruse] Incruse Ellipta 62.5 MCG/INH Inhalation Aerosol Powder Breath Activated Incruse Ellipta 62.5 MCG/INH Inhalation Aerosol Powder Breath Activated 10/25/2020 12:00:00 AM EST aborted 7 ACTUAT umeclidinium 0.0625 MG/ACTUAT Dry Powder Inhaler [Incruse] [place] ([facility]) Magnesium 400 MG Oral Tablet Magnesium 400 MG Oral Tablet 12:00:00 AM EST aborted Magnesium [facility] ([facility]) 12 HR Bupropion Hydrochloride 100 MG Ext ended Release Oral Tablet buPROPion HCl ER (SR) 100 MG Oral Tablet Extended Release 12 Hour buPROPion HCl ER (SR) 100 MG Oral Tablet Extended Release 12 Hour 10/08/2020 12:00:00 AM EST aborted 12 HR bupropion hydrochloride 10 0 MG Extended Release Oral Tablet [place] ([facility]) cetirizine hydrochloride 10 MG Oral Tablet Cetirizine HCl 10 MG Oral Tablet Cetirizine HCl 10 MG Oral Tablet 10/08/2020 12:00:00 AM EST aborted cetirizine hydrochloride 10 MG Oral Tablet [place] ([facility]) Fenofibrate 48 MG Oral Tablet Fenofibrate 48 MG Oral Tablet 10/08/2020 12:00:00 AM EST aborted fenofibrate 48 M G Oral Tablet [place] ([facility]) dapagliflozin 5 MG Oral Tablet [Farxiga] Farxiga 5 MG Oral Tablet Farxiga 5 MG Oral Tablet 10/03/2020 12:00:00 AM EST aborte d dapagliflozin 5 MG Oral Tablet [Farxiga] [place] ([facility]) Huggies Pull-Ups Miscellaneous Huggies Pull-Ups Miscellaneou s 10/03/2020 12:00:00 AM EST aborted Huggies Pull-Ups [place] ([facility]) POLYETHYLENE GLYCOL 3350 142 MG/ML Oral Solution [Miralax] MiraLax 17 GM Oral Packet MiraLax 17 GM Oral Packet 10/03/2020 12:00:00 AM EST 1 active polyethylene glycol 3350 26333 MG Powder for Oral Solu tion [Miralax] [place] ([facility]) hydroxizine 15 mg Oral Capsule hydroxizine 15 mg Oral Capsul e 10/03/2020 12:00:00 AM EST 1 active hydroxiz ine [facility]) 7 ACTUAT umeclidinium 0.0625 MG/ACTUAT D ry Powder Inhaler [Incruse] Incruse Ellipta 62.5 MCG/INH Inhalation Aerosol Powder Breath Activated Incruse Ellipta 62.5 MCG/INH Inhalation Aerosol Powder Breath Activated 09/28/2020 12:00:00 AM EST aborted 7 ACTUAT umeclidinium 0.0625 MG/ACTUAT Dry Powder Inhaler [Incruse] [place] ([facility]) ferrous sulfate 325 MG Oral Tablet Ferrous Sulfate 325 (65 Fe) MG Oral Tablet Ferrous Sulfate 325 (65 Fe) MG Oral Tablet 09/26/2020 12:00:00 AM EST 1 aborted ferrous sulfate 325 MG Oral Tabl et [place] ([facility]) Alendronic acid 70 MG Oral Tablet [Fosamax] Fosamax 70 MG Oral Tablet Fosamax 70 MG Oral Tablet 09/26/2020 12:00:00 AM EST ab orted alendronic acid 70 MG Oral Tablet [Fosamax] [place] ([facility]) dapagliflozin 10 MG Oral Tablet [Farxiga] Farxiga 09/26/2020 1 2:00:00 AM EST ORAL completed [place] ([facility]) Magnesium 400 MG Oral Tablet Magnesium 400 MG Oral Tablet 12:00:00 AM EST aborted Magnesium [facility] ([facility]) ammonium lactate 120 MG/ML Topical Lotio n [Lac-Hydrin] Lac-Hydrin Twelve 12% External Lotion Lac-Hydrin Twelve 12% External Lotion 09/19/2020 12:00 :00 AM EDT aborted ammonium lactate 120 MG/ML Topical Lotion [Lac-Hydrin] [place] ([facility]) Cholecalciferol 1000 UNT Oral Capsule Vitamin D3 25 MC G (1000 UT) Oral Capsule Vitamin D3 25 MCG (1000 UT) Oral Capsule 09/18/2020 12:00:00 AM EDT aborted cholecalciferol 0.025 MG Oral Ca psule [place] ([facility]) Simvastatin 40 MG Oral Tablet Simvastatin 40 MG Oral Tablet 09/18/2020 12:00:00 AM EDT 1 aborted simvastatin 40 M G Oral Tablet [place] ([facility]) Multivitamins Oral Capsule Multivitamins Oral Capsule 2019 12:00:00 AM EDT 1 aborted [facility] Fenofibrate 48 MG Oral Tablet Fenofibrate 48 MG Oral Tablet 09/10/2020 12:00:00 AM EDT aborted fenofibrate 48 M G Oral Tablet [place] ([facility]) 12 HR Bupropion Hydrochloride 100 MG Ext ended Release Oral Tablet buPROPion HCl ER (SR) 100 MG Oral Tablet Extended Release 12 Hour buPROPion HCl ER (SR) 100 MG Oral Tablet Extended Release 12 Hour 09/10/2020 12:00:00 AM EDT aborted 12 HR bupropion hydrochloride 10 0 MG Extended Release Oral Tablet [place] ([facility]) cetirizine hydrochloride 10 MG Oral Tablet Cetirizine HCl 10 MG Oral Tablet Cetirizine HCl 10 MG Oral Tablet 09/10/2020 12:00:00 AM EDT aborted cetirizine hydrochloride 10 MG Oral Tablet [place] ([facility]) calcium polycarbophil 625 MG Oral Tablet [FiberCon] Fi berCon 625 MG Oral Tablet FiberCon 625 MG Oral Tablet 09/02/2020 12:00:00 AM EDT aborted calcium polycarbophil 625 MG Oral Tablet [FiberCon] [place] ([facility]) Magnesium 400 MG Oral Tablet Magnesium 400 MG Oral Tablet 12:00:00 AM EDT aborted Magnesium [facility] ([facility]) POLYETHYLENE GLYCOL 3350 142 MG/ML Oral Solution [Miralax] M iralax 08/28/2020 12:00:00 AM EDT active M [place] ([facility], ) 7 ACTUAT umeclidinium 0.0625 MG/ACTUAT D ry Powder Inhaler [Incruse] Incruse Ellipta 62.5 MCG/INH Inhalation Aerosol Powder Breath Activated Incruse Ellipta 62.5 MCG/INH Inhalation Aerosol Powder Breath Activated 08/22/2020 12:00:00 AM EDT aborted 7 ACTUAT umeclidinium 0.0625 MG/ACTUAT Dry Powder Inhaler [Incruse] [place] ([facility]) 200 ACTUAT Albuterol 0.09 MG/ACTUAT Mete red Dose Inhaler [Ventolin] Ventolin HFA 108 (90 Base) MCG/ACT Inhalation Aerosol Solution Ventolin HFA 108 (90 Base) MCG/ACT Inhalation Aerosol Solution 08/22/2020 12:00:00 AM EDT 18 aborted [id number] 200 ACTUAT albuterol 0.09 MG/ACTUAT Metered Dose Inhaler [Ventolin] [facility] POLYETHYLENE GLYCOL 3350 142 MG/ML Oral Solution [Miralax] M iralax 08/16/2020 12:00:00 AM EDT completed [facility] ([facility], ) Acetaminophen 325 MG / Hydrocodone Bitartrate 5 MG Oral Tabl et [Springer] Springer 08/01/2020 12:00:00 AM EDT ORAL active [facility] ([facility], ) magnesium citrate 58.2 MG/ML Oral Solution Magnesium Citrate 07/30/2020 12:00:00 AM EDT completed [facility] ([facility], ) Bisacodyl 5 MG Delayed Release Oral Tablet Bisacodyl Ec 07/30/2020 12:00:00 AM EDT ORAL completed [facility] ([facility], ) Bisacodyl 10 MG Rectal Suppository Bisacodyl 07/30/2020 12:00:00 AM EDT completed [facility] ([facility], ) Hydroxyzine Hydrochloride 50 MG Oral Tablet Hydroxyzine HCL 07/26/2020 12:00:00 AM EDT ORAL active [facility] ([facility]) gabapentin 300 MG Oral Capsule Gabapentin 300 MG Oral Capsule Gabapentin 300 MG Oral Capsule 07/26/2020 12:00:00 AM EDT abort ed gabapentin 300 MG Oral Capsule [facility]) quetiapine 50 MG Oral Tablet [Seroquel] SEROquel 50 MG Oral Tablet SEROquel 50 MG Oral Tablet 07/24/2020 12:00:00 AM EDT 1 abo rted quetiapine 50 MG Oral Tablet [Seroquel] [facility]) lamotrigine 100 MG Oral Tablet [Lamictal] LaMICtal 100 MG Oral Tablet LaMICtal 100 MG Oral Tablet 07/24/2020 12:00:00 AM EDT active lamotrigine 100 MG Oral Tablet [Lamictal] [facility]) Multivitamins Oral Capsule Multivitamins Oral Capsule 2019 12:00:00 AM EDT 1 aborted [facility] Omeprazole 20 MG Delayed Release Oral Ca psule Omeprazole 20 MG Oral Capsule Delayed Release Omeprazole 20 MG Oral Capsule Delayed Release 07/23/20 12:00:00 AM EDT aborted omeprazole 20 MG Delayed Release Oral Capsule [facility]) POLYETHYLENE GLYCOL 3350 105 MG/ML / Pot assium Chloride 0.08576 MEQ/ML / Sodium Bicarbonate 0.017 MEQ/ML / Sodium Chloride 0.0479 MEQ/ML Oral Solution [GaviLyte-N] Gavilyte-N With Flavor Pack 07/01/2020 12:00:00 AM EDT completed [facility] ([facility], ) Bisacodyl 5 MG Delayed Release Oral Tablet [Dulcolax] Dulcol ax 07/01/2020 12:00:00 AM EDT completed [facility] ([facility], ) lamotrigine 100 MG Oral Tablet [Lamictal] LaMICtal 100 MG Oral Tablet LaMICtal 100 MG Oral Tablet 06/18/2020 12:00:00 AM EDT 1 aborted lamotrigine 100 MG Oral Tablet [Lamictal] [place] ([facility]) ammonium lactate 120 MG/ML Topical Lotio n [Lac-Hydrin] Lac-Hydrin Twelve 12% External Lotion Lac-Hydrin Twelve 12% External Lotion 06/18/2020 12:00 :00 AM EDT aborted ammonium lactate 120 MG/ML Topical Lotion [Lac-Hydrin] [place] ([facility]) Basaglar KwikPen 100 UNIT/ML Subcutaneous Solution Pen -injector Basaglar KwikPen 100 UNIT/ML Subcutaneous Solution Pen-injector 06/18/2020 12:00:00 AM EDT aborted Sensor 3 ML in sulin glargine 100 UNT/ML Pen Injector [Basaglar] [place] ([facility]) gabapentin 300 MG Oral Capsule Gabapentin 300 MG Oral Capsule Gabapentin 300 MG Oral Capsule 06/18/2020 12:00:00 AM EDT 1 abort ed gabapentin 300 MG Oral Capsule [facility]) 200 ACTUAT Albuterol 0.09 MG/ACTUAT Mete red Dose Inhaler [Ventolin] Ventolin HFA 108 (90 Base) MCG/ACT Inhalation Aerosol Solution Ventolin HFA 108 (90 Base) MCG/ACT Inhalation Aerosol Solution 06/04/2020 12:00:00 AM EDT 18 aborted [id number] 200 ACTUAT albuterol 0.09 MG/ACTUAT Metered Dose Inhaler [Ventolin] [facility]) Riboflavin 400 MG Oral Tablet Riboflavin 400 MG Oral Tablet 06/04/2020 12:00:00 AM EDT 1 aborted riboflavin 400 M G Oral Tablet [place] ([facility]) 12 HR Bupropion Hydrochloride 100 MG Ext ended Release Oral Tablet buPROPion HCl ER (SR) 100 MG Oral Tablet Extended Release 12 Hour buPROPion HCl ER (SR) 100 MG Oral Tablet Extended Release 12 Hour 06/04/2020 12:00:00 AM EDT aborted 12 HR bupropion hydrochloride 10 0 MG Extended Release Oral Tablet [facility]) cetirizine hydrochloride 10 MG Oral Tablet Cetirizine HCl 10 MG Oral Tablet Cetirizine HCl 10 MG Oral Tablet 06/04/2020 12:00:00 AM EDT aborted cetirizine hydrochloride 10 MG Oral Tablet [place] ([facility]) Fenofibrate 48 MG Oral Tablet Fenofibrate 48 MG Oral Tablet 06/04/2020 12:00:00 AM EDT aborted fenofibrate 48 M G Oral Tablet [place] ([facility]) Cholecalciferol 1000 UNT Oral Capsule Vitamin D3 25 MC G (1000 UT) Oral Capsule Vitamin D3 25 MCG (1000 UT) Oral Capsule 06/04/2020 12:00:00 AM EDT aborted cholecalciferol 0.025 MG Oral Ca psule [place] ([facility]) Fluticasone Propionate 50 MCG/ACT Nasal Suspension Flu ticasone Propionate 50 MCG/ACT Nasal Suspension 06/04/2020 12:00:00 AM EDT 2 aborted fluticasone propionate 0.05 MG/ACTUAT Metered Dose Nasal [facility]) Sumatriptan 25 MG Oral Tablet SUMAtriptan Succinate 25 MG Oral Tablet SUMAtriptan Succinate 25 MG Oral Tablet 06/04/2020 12:00:00 AM EDT aborted sumatriptan 25 MG Oral [facility]t [facility] ferrous sulfate 325 MG Oral Tablet Ferrous Sulfate 325 (65 Fe) MG Oral Tablet Ferrous Sulfate 325 (65 Fe) MG Oral Tablet 06/04/2020 12:00:00 AM EDT 1 aborted ferrous sulfate 325 MG Oral Tabl et [place] ([facility]) Magnesium Oxide 400 MG Oral Tablet Magnesium Oxide 400 MG Or al Tablet 06/04/2020 12:00:00 AM EDT aborted magnes ium oxide 400 MG Oral Tablet [facility]) Alendronic acid 70 MG Oral Tablet [Fosamax] Fosamax 70 MG Oral Tablet Fosamax 70 MG Oral Tablet 06/04/2020 12:00:00 AM EDT ab orted alendronic acid 70 MG Oral Tablet [Fosamax] [facility]) 7 ACTUAT umeclidinium 0.0625 MG/ACTUAT D ry Powder Inhaler [Incruse] Incruse Ellipta 62.5 MCG/INH Inhalation Aerosol Powder Breath Activated Incruse Ellipta 62.5 MCG/INH Inhalation Aerosol Powder Breath Activated 06/03/2020 12:00:00 AM EDT aborted 7 ACTUAT umeclidinium 0.0625 MG/ACTUAT Dry Powder Inhaler [Incruse] [facility]) Multivitamins Oral Capsule Multivitamins Oral Capsule 2019 12:00:00 AM EDT 1 aborted Multivitamins [facility] ([facility]) calcium polycarbophil 625 MG Oral Tablet [FiberCon] Fi berCon 625 MG Oral Tablet FiberCon 625 MG Oral Tablet 06/03/2020 12:00:00 AM EDT aborted calcium polycarbophil 625 MG Oral Tablet [FiberCon] [facility]) Simvastatin 40 MG Oral Tablet Simvastatin 40 MG Oral Tablet 05/29/2020 12:00:00 AM EDT 1 aborted simvastatin 40 M G Oral Tablet [facility]) Omeprazole 20 MG Delayed Release Oral Ca psule Omeprazole 20 MG Oral Capsule Delayed Release Omeprazole 20 MG Oral Capsule Delayed Release 05/03/20 12:00:00 AM EDT aborted omeprazole 20 MG Delayed Release Oral Capsule [facility]) carbamide peroxide 65 MG/ML Otic Solution [Debrox] Daylin cosme 6.5% Otic Solution Debrox 6.5% Otic Solution 03/05/2020 12:00:00 AM EDT aborted carbamide peroxide 65 MG/ML Otic Solution [Debrox] [place] ([facility]) Acamprosate 333 MG Oral Tablet Acamprosate 333 MG Oral Table t 01/11/2020 12:00:00 AM EST aborted Acampro sate [place] ([facility]) dapagliflozin 5 MG Oral Tablet [Farxiga] Farxiga 5 MG Oral Tablet Farxiga 5 MG Oral Tablet 12/12/2019 12:00:00 AM EST aborte d dapagliflozin 5 MG Oral Tablet [Farxiga] [place] ([facility]) Bydureon BCise 2 MG/0.85ML Subcutaneous Auto-injector Bydureon BCise 2 MG/0.85ML Subcutaneous Auto-injector 12/12/2019 12:00:00 AM EST aborted 0.85 ML exenatide 2.35 MG/ML Auto-Injector [Bydureon] [place] ([facility]) BD Pen Needle Micro U/F 32G X 6 MM Miscellaneous BD Pe n Needle Micro U/F 32G X 6 MM Miscellaneous 12/04/2019 12:00:00 AM EST aborted BD Pen Needle Micro U/F [place] ([facility]) POLYETHYLENE GLYCOL 3350 142 MG/ML Oral Solution [Kalani lax] MiraLax Oral Powder MiraLax Oral Powder 04/04/2019 12:00:00 AM EDT aborted polyethylene glycol 3350 51751 MG Powder for Oral Solution [Miralax] [place] ([facility]) quetiapine 50 MG Oral Tablet [Seroquel] SEROquel 50MG Oral Tablet SEROquel 50MG Oral Tablet 01/05/2019 12:00:00 AM EST aborte d quetiapine 50 MG Oral Tablet [Seroquel] [place] ([facility]) Insurance Providers Payer name Policy type / Coverage type Policy ID Covered green party ID Covered green party's relationship to [place] Policy [place] Plan Information Medicare [place] of [place] Medicare Primary [id number] Self 0 MEDICARE [id number] SP [id number] Medicare [place] Medicare Primary 0 [id number] Self 0 Medicare [place] Medicare Primary 0 [id number] Self 0 Medicare Part B of [facility] Medicare Primary 0 [id number] Self 0 Medicare Part B of [facility] Medicare Primary 0 [id number] Self 0 Medicare Part B of [facility] Medicare Primary 0 [id number] Self 0 Medicare Part B of [facility] Medicare Primary 0 [id number] Self 0 Medicare Part B of [facility] Medicare Primary 0 [id number] Self 0 Medicare Part B of [facility] Medicare Primary 0 [id number] Self 0 Medicare Part B of [facility] Medicare Primary 0 [id number] Self 0 MEDICARE A [id number] Self [id number] MEDICARE [id number] SP [id number] Medicare Part B of [facility] Medicare Primary 0 [id number] Self 0 Medicare Part B of [facility] Medicare Primary 0 [id number] Self 0 MEDICARE [id number] SP [id number] MEDICARE [id number] SP [id number] MEDICAID [id number] SP [id number] MEDICAID M [id number] Self [id number] MEDICAID [id number] SP [id number] MEDICAID [id number] SP [id number] MEDICAID [id number] SP [id number] MEDICAID [id number] SP [id number] MEDICAID [id number] SP [id number] MEDICAID [id number] SP [id number] MEDICAID [id number] SP [id number] MEDICAID [id number] SP [id number] Medicare Part B of [facility] Other 0 [id number] Self 0 Medicaid of [place] Supplemental Policy 0 [id number] Self 0 Medicare Part B of [facility] Other 0 [id number] Self 0 [place] Supplemental Policy 0 [id number] Self 0 Medicare Part B of [facility] Other 0 [id number] Self 0 [place] Supplemental Policy 0 [id number] Self 0 Medicare Part B of [facility] Other 0 [id number] Self 0 [place] Supplemental Policy 0 [id number] Self 0 Medicare Part B of [facility] Other 0 [id number] Self 0 [place] Supplemental Policy 0 [id number] Self 0 Medicare Part B of [facility] Other 0 [id number] Self 0 [place] Supplemental Policy 0 [id number] Self 0 Medicare Part B of [facility] Other 0 [id number] Self 0 [place] Supplemental Policy 0 [id number] Self 0 Medicare Part B of [facility] Other 0 [id number] Self 0 [place] Supplemental Policy 0 [id number] Self 0 Medicare Part B of [facility] Other 0 [id number] Self 0 [place] Supplemental Policy 0 [id number] Self 0 Medicare Part B of [facility] Other 0 [id number] Self 0 [place] Supplemental Policy 0 [id number] Self 0 Medicare Part B of [facility] Other 0 [id number] Self 0 [place] Supplemental Policy 0 [id number] Self 0 Medicare Part B of [facility] Other 0 [id number] Self 0 [place] Supplemental Policy 0 [id number] Self 0 Medicare Part B of [facility] Other 0 [id number] Self 0 MEDICAID [id number] SP [id number] Medicaid [place] Supplemental Policy 0 [id number] Self 0 Medicare Part B of [facility] Other 0 [id number] Self 0 [place] Supplemental Policy 0 [id number] Self 0 Medicare Part B of [facility] Other 0 [id number] Self 0 [place] Supplemental Policy 0 [id number] Self 0 Medicare Part B of [facility] Other 0 [id number] Self 0 MEDICARE C [id number] S [id number] MEDICAID M [id number] S [id number] Medicaid [place] Supplemental Policy 0 [id number] Self 0 Medicare Part B of [facility] Other 0 [id number] Self 0 [place] Supplemental Policy 0 [id number] Self 0 Medicare Part B of [facility] Other 0 [id number] Self 0 [place] Supplemental Policy 0 [id number] Self 0 Medicare Part B of [facility] Other 0 [id number] Self 0 [place] Supplemental Policy 0 [id number] Self 0 Medicare Part B of [facility] Other 0 [id number] Self 0 [place] Supplemental Policy 0 [id number] Self 0 Medicare Part B of [facility] Other 0 [id number] Self 0 [place] Supplemental Policy 0 [id number] Self 0 Medicare Part B of [facility] Other 0 [id number] Self 0 [place] Supplemental Policy 0 [id number] Self 0 Medicare Part B of [facility] Other 0 [id number] Self 0 [place] [id number] [place] Supplemental Policy 0 [id number] Self 0 Medicare Part B of [facility] Other 0 [id number] Self 0 [place] Supplemental Policy 0 [id number] Self 0 Medicare Part B of [facility] Other 0 [id number] Self 0 [place] Supplemental Policy 0 [id number] Self 0 Medicare Part B of [facility] Other 0 [id number] Self 0 ANSI-Medicaid [id number] ANSI-Medicare Part B [id number] Medicaid [facility] Part B [id number] Self [id number] [place] Primary [id number] Self [id number] Medicaid [place] Med[place] Part B [id number] Self [id number] Medicare [place]/[facility] Medicare Primary [id number] Self [id number] Medicaid [place] Med[place] Part B [id number] Self [id number] [place] Primary [id number] Self [id number] MEDICARE [id number] ANSI-Medicaid [id number] ANSI-Medicare Part B [id number] ANSI-Medicaid [id number] ANSI-Medicare Part B [id number] Medicaid [facility] Supplemental Policy 0 [id number] Self 0 Medicare Part B [facility] Other 0 [id number] Self 0 Medicaid [facility] Part B [id number] Self [id number] [place] Primary [id number] Self [id number] Medicaid [facility] Supplemental Policy 0 [id number] Self 0 Medicare Part B [facility] Other 0 [id number] Self 0 ANSI-Medicare Part B [id number] ANSI-Medicaid [id number] ANSI-Medicaid [id number] ANSI-Medicare Part B [id number] Medicaid [facility] Supplemental Policy 0 [id number] Self 0 Medicare [place] [facility] [place] [facility] [place] Other 0 [id number] Self 0 Medicaid [facility] Supplemental Policy 0 [id number] Self 0 Medicare [place] [facility] [place] Other 0 [id number] Self 0 [place] Supplemental Policy 0 [id number] Self 0 Medicare [place] Other 0 [id number] Self 0 ANSI-Medicare Part B [id number] ANSI-Medicaid [id number] Medicare [facility] Part B [id number] Self [id number] Medicaid Medicaid [id number] S elf [id number] Medicare Medicare Primary [id number] Self [id number] Medicaid [place] Medigap Part B [id number] Self [id number] [place] Medicare Primary [id number] Self [id number] ANSI-Medicaid [id number] ANSI-Medicare Part B [id number] Medicaid [facility] Supplemental Policy 0 [id number] Self 0 Medicare Part B [facility] Other 0 [id number] Self 0 ANSI-Medicare Part B [id number] ANSI-Medicaid [id number] Medicaid [facility] Supplemental Policy 0 [id number] Self 0 ANSI-Medicaid [id number] ANSI-Medicare Part B [id number] Medicare [place] Medigap Part B [id number] Self [id number] Medicaid Medicaid [id number] S elf [id number] Medicare Medicare Primary [id number]. [id number] Self [id number] [place] Supplemental Policy 0 [id number] Self 0 ANSI-Medicaid [id number] ANSI-Medicare Part B [id number] Medicaid [place] Supplemental Policy [id number] [facility] Medigap Part B [id number] .[id number] Self [id number] Medicaid Medicaid [id number] S elf [id number] Medicare Medicare Primary [id number]. [id number] Self [id number] MEDICARE C [id number] S [id number] Medicaid [place] Med[place]ap Part B [id number] Self [id number] Medicare Up[place]/[facility] Medicare Primary [id number] Self [id number] Medicaid [facility] Supplemental Policy 0 [id number] Self 0 Medicaid [place] Med[place] Part B [id number] Self [id number] [place] Medicare Primary [id number] Self [id number] [place] Supplemental Policy 0 [id number] Self 0 [place] 0 [id number] Self 0 [place] Supplemental Policy 0 [id number] Self 0 Medicaid [place] Medigap Part B [id number] Self [id number] Medicare [place] Medicare Primary [id number] Self [id number] Medicare Dme Medigap Part B [id number] Self [id number] Medicaid Medicaid [id number] S elf [id number] Medicare Medicare Primary [id number] Self [id number] [facility] [id number] S [id number] Medicaid [place] Medigap Part B [id number] Self [id number] Medicare [place] Medicare Primary [id number] Self [id number] Medicaid [place] Med[place] B [id number] Self [id number] Medicare [place] Medicare Primary [id number] Self [id number] [place] Med[place] [id number] Self [id number] Medicare [place] Medicare Primary [id number] Self [id number] Medicaid [place] Medigap Part B [id number] Self [id number] Medicare Natl Gov't Servi Medicare Primary [id number] Self 1 [id number] MEDICARE [id number] SP [id number] Medicaid [facility] Supplemental Policy 0 [id number] Self 0 Medicaid [facility] Supplemental Policy 0 [id number] Self 0 Medicare Medicare Primary [id number] Self [id number] MEDICAID-O/P [id number] MEDICARE PART A -O/P [id number] 18 [id number] Medicaid [facility] Supplemental Policy 0 [id number] Self 0 [place] Supplemental Policy 0 [id number] Self 0 Medicaid [facility] Supplemental Policy 0 [id number] Self 0 MEDICAID [id number] [place] [id number] Self Medicare Natl Gov't Servi Medicare Primary [id number] Self MEDICARE -O/P [id number] 18 [id number] MEDICARE P [id number] S [id number] MEDICAID - CLINIC [id number] MEDICARE PART A-CLINIC [id number] 18 [id number] [facility] MEDICAID [id number] SP [id number] MEDICARE [id number] SP [id number] MEDICARE CO [id number] 18 [id number] MEDICAID [id number] Medicaid [facility] Supplemental Policy 0 [id number] Self 0 Medicare [place] of [place] Other 0 [id number] Self 0 [place] Supplemental Policy 0 [id number] Self 0 Medicare [place] Other 0 [id number] Self 0 MEDICAID HEA [id number] S [id number] MEDICARE MCA [id number] S [id number] MEDICARE MCA [id number] S [id number] [place] Supplemental Policy 0 [id number] Self 0 Medicare Part B of [facility] Other 0 [id number] Self 0 [place] Supplemental Policy 0 [id number] Self 0 Medicare Part B of [facility] Other 0 [id number] Self 0 [place] Supplemental Policy 0 [id number] Self 0 Medicare Part B of [facility] Other 0 [id number] Self 0 [place] [id number] [place] Supplemental Policy 0 [id number] Self 0 Medicare Part B of [facility] Other 0 [id number] Self 0 [place] Supplemental Policy 0 [id number] Self 0 Medicare Part B of [facility] Other 0 [id number] Self 0 [place] Supplemental Policy 0 [id number] Self 0 Medicare Part B of [facility] Other 0 [id number] Self 0 [place] Supplemental Policy 0 [id number] Self 0 Medicare Part B of [facility] Other 0 [id number] Self 0 [place] Supplemental Policy 0 [id number] Self 0 Problems, Conditions, and Diagnoses Code Display Name Description Problem Type Effective Dates Data Source(s) F429 Obsessive-compulsive disorder, unspecifi ed Obsessive-compulsive disorder, unspecified Diagnosis 07/29/2021 03:43:[address] [facility] F70 Mild intellectual disabilities Mild intellectual disab ilities Diagnosis 07/29/2021 03:43:[address] 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) 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 Problem 07/25/2021 12:00:00 AM EDT [facility] ([facility]) 593.3 Ureteral Stricture Ureteral Stricture Problem 12:00:00 AM EDT [facility] ([facility]) 585.9 Chronic Renal Failure Chronic Renal Failure Problem 07/25/2021 12:00:00 AM EDT [facility] ([facility]) 170053291 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, 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) 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 Problem 07/25/2021 12:00:00 AM EDT [facility] ([facility]) 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 04/10/2021 12:00:00 AM EDT [facility] ([facility]) 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 04/10/2021 12:00:00 AM EDT [facility] ([facility]) 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 04/10/2021 12:00:00 AM EDT [facility] ([facility]) 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 04/10/2021 12:00:00 AM EDT [facility] ([facility]) 239670740 Recurrent falls Recurrent falls Problem 02/10/2021 12:0 0:00 AM EDT [facility] ([facility] ) 20204761 Unsteady when walking Unsteady when walking Problem 02/10/2021 12:00:00 AM EDT [facility] ([facility] ) T14.90XA Muscle Hematoma Muscle Hematoma Problem 12/10/2020 12:0 0:00 AM EST [facility] ([facility]) T14.90XA Muscle Hematoma Muscle Hematoma Problem 12/10/2020 12:0 0:00 AM EST [facility] ([facility]) T14.90XA Muscle Hematoma Muscle Hematoma Problem 12/10/2020 12:0 0:00 AM EST [facility] ([facility]) T14.90XA Muscle Hematoma Muscle Hematoma Problem 12/10/2020 12:0 0:00 AM EST [facility] ([facility]) T14.90XA Muscle Hematoma Muscle Hematoma Problem 12/10/2020 12:0 0:00 AM EST [facility] ([facility]) T14.90XA Muscle Hematoma Muscle Hematoma Problem 12/10/2020 12:0 0:00 AM EST [facility] ([facility]) T14.90XA Muscle Hematoma Muscle Hematoma Problem 12/10/2020 12:0 0:00 AM EST [facility] ([facility]) T14.90XA Muscle Hematoma Muscle Hematoma Problem 12/10/2020 12:0 0:00 AM EST [facility] ([facility]) T14.90XA Muscle Hematoma Muscle Hematoma Problem 12/10/2020 12:0 0:00 AM EST [facility] ([facility]) T14.90XA Muscle Hematoma Muscle Hematoma Problem 12/10/2020 12:0 0:00 AM EST [facility] ([facility]) T14.90XA Muscle Hematoma Muscle Hematoma Problem 12/10/2020 12:0 0:00 AM EST [facility] ([facility]) T14.90XA Muscle Hematoma Muscle Hematoma Problem 12/10/2020 12:0 0:00 AM EST [facility] ([facility]) 788.31 Urge Incontinence of Urine Urge Incontinence of Urine Finding 10/03/2020 12:00:00 AM EST [facility] ([facility]) F42.9 Obsessive Compulsive Disorder Obsessive Compulsive Dis order Problem 10/03/2020 12:00:00 AM EST [facility] ([facility]) 788.31 Urge Incontinence of Urine Urge Incontinence of Urine Finding 10/03/2020 12:00:00 AM EST [facility] ([facility]) F42.9 Obsessive Compulsive Disorder Obsessive Compulsive Dis order Problem 10/03/2020 12:00:00 AM EST [facility] ([facility]) 788.31 Urge Incontinence of Urine Urge Incontinence of Urine Finding 10/03/2020 12:00:00 AM EST [facility] ([facility]) F42.9 Obsessive Compulsive Disorder Obsessive Compulsive Dis order Problem 10/03/2020 12:00:00 AM EST [facility] ([facility]) 788.31 Urge Incontinence of Urine Urge Incontinence of Urine Finding 10/03/2020 12:00:00 AM EST [facility] ([facility]) F42.9 Obsessive Compulsive Disorder Obsessive Compulsive Dis order Problem 10/03/2020 12:00:00 AM EST [facility] ([facility]) 788.31 Urge Incontinence of Urine Urge Incontinence of Urine Finding 10/03/2020 12:00:00 AM EST [facility] ([facility]) F42.9 Obsessive Compulsive Disorder Obsessive Compulsive Dis order Problem 10/03/2020 12:00:00 AM EST [facility] ([facility]) 788.31 Urge Incontinence of Urine Urge Incontinence of Urine Finding 10/03/2020 12:00:00 AM EST [facility] ([facility]) F42.9 Obsessive Compulsive Disorder Obsessive Compulsive Dis order Problem 10/03/2020 12:00:00 AM EST [facility] ([facility]) 788.31 Urge Incontinence of Urine Urge Incontinence of Urine Finding 10/03/2020 12:00:00 AM EST [facility] ([facility]) F42.9 Obsessive Compulsive Disorder Obsessive Compulsive Dis order Problem 10/03/2020 12:00:00 AM EST [facility] ([facility]) 788.31 Urge Incontinence of Urine Urge Incontinence of Urine Finding 10/03/2020 12:00:00 AM EST [facility] ([facility]) F42.9 Obsessive Compulsive Disorder Obsessive Compulsive Dis order Problem 10/03/2020 12:00:00 AM EST [facility] ([facility]) 788.31 Urge Incontinence of Urine Urge Incontinence of Urine Finding 10/03/2020 12:00:00 AM EST [facility] ([facility]) F42.9 Obsessive Compulsive Disorder Obsessive Compulsive Dis order Problem 10/03/2020 12:00:00 AM EST [facility] ([facility]) 788.31 Urge Incontinence of Urine Urge Incontinence of Urine Finding 10/03/2020 12:00:00 AM EST [facility] ([facility]) F42.9 Obsessive Compulsive Disorder Obsessive Compulsive Dis order Problem 10/03/2020 12:00:00 AM EST [facility] ([facility]) 788.31 Urge Incontinence of Urine Urge Incontinence of Urine Finding 10/03/2020 12:00:00 AM [facility] ([facility]) F42.9 Obsessive Compulsive Disorder Obsessive Compulsive Dis order Problem 10/03/2020 12:00:00 AM [facility] ([facility]) 788.31 Urge Incontinence of Urine Urge Incontinence of Urine Finding 10/03/2020 12:00:00 AM [facility] ([facility]) F42.9 Obsessive Compulsive Disorder Obsessive Compulsive Dis order Problem 10/03/2020 12:00:00 AM EST [place] ([facility]) 788.31 Urge Incontinence of Urine Urge Incontinence of Urine Finding 10/03/2020 12:00:00 AM [facility] ([facility]) F42.9 Obsessive Compulsive Disorder Obsessive Compulsive Dis order Problem 10/03/2020 12:00:00 AM [facility] ([facility]) Surgeries/Procedures Procedure Description Date Indications Data Source(s) OFFICE OUTPATIENT VISIT 25 MINUTES 08/19/2021 12:00:00 AM EDT [facility] ([facility] ) Diabetic Foot Exam 08/01/2021 12:00:00 AM EDT [facility] ([facility]) OFFICE OUTPATIENT VISIT 10 MINUTES 08/01/2021 12:00:00 AM EDT [facility] ([facility] OFFICE OUTPATIENT VISIT 40 MINUTES 07/30/2021 12:00:00 AM EDT [facility] ([facility]) OFFICE OUTPATIENT VISIT 25 MINUTES 07/30/2021 12:00:00 AM EDT [facility] ([facility]) OFFICE OUTPATIENT VISIT 25 MINUTES 07/29/2021 12:00:00 AM EDT [facility] ([facility]) ELECTROCARDIOGRAM, COMPLETE (EKG) ELECTROCARDIOGRAM, COMPLET E (EKG) 07/25/2021 [facility] OFFICE OUTPATIENT VISIT 15 MINUTES 07/21/2021 12:00:00 AM EDT [facility] ([facility] ) HbA1c (Glycosolated) (waived laboratory) HbA1c (Glycos olated) (waived laboratory) 06/12/2021 12:00:00 AM EDT [facility] ([facility]) GLUCOSE (waived laboratory) GLUCOSE (waived laboratory) 05/23 12:00:[facility] COLLECTION VENOUS BLOOD VENIPUNCTURE BLOOD DRAW 06/12/2021 12:00: 00 AM [facility] ([facility]) PHYSICIAN TELEPHONE EVALUATION 11-20 MIN 05/20/2021 12 :00:00 AM [facility] OFFICE OUTPATIENT NEW 60 MINUTES 05/06/2021 12:00:00 A M EDT [facility] MYOCARDIAL SPECT MULTIPLE STUDIES 04/02/2021 12:00:00 AM EDT [facility]) OFFICE OUTPATIENT VISIT 10 MINUTES 04/01/2021 12:00:00 AM [facility]T [facility] OFFICE OUTPATIENT VISIT 40 MINUTES 03/31/2021 12:00:00 AM EDT [facility] ) ECG ROUTINE ECG W/LEAST 12 LDS W/I&R 03/26/2021 12:00: 00 AM EDT [facility]John [facility]) ECHO TTHRC R-T 2D W/WOM-MODE COMPL SPEC&COLR DOP 03/26 12:00:00 AM EDT [facility] (John Chavez [facility]) OFFICE OUTPATIENT VISIT 25 MINUTES 03/25/2021 12:00:00 AM EDT [facility]) MRI BRAIN BRAIN STEM W/O CONTRAST MATERIAL 03/05/2021 12:00:00 AM EDT [facility] ([facility] ) MRI BRAIN BRAIN STEM W/O CONTRAST MATERIAL 03/05/2021 12:00:00 AM EDT [facility] ([facility] ) MRI SPINAL CANAL CERVICAL W/O CONTRAST MATRL 12:00:00 AM EDT [facility] ([facility] ) MRI SPINAL CANAL CERVICAL W/O CONTRAST MATRL 12:00:00 AM EDT [facility] ) Needle electromyography, each extremity, with related paraspinal areas, when performed, done with nerve conduction, amplitude and latency/velocity study; complete, five or more muscles studied, innervated by three or more nerves or four or more spinal levels (list separately in addition to the code for primary procedure). 02/26/2021 12:00:00 AM EDT [facility] ([facility] ) Needle electromyography, each extremity, with related paraspinal areas, when performed, done with nerve conduction, amplitude and latency/velocity study; complete, five or more muscles studied, innervated by three or more nerves or four or more spinal levels (list separately in addition to the code for primary procedure). 02/26/2021 12:00:00 AM EDT [facility] ([facility] ) Nerve Conduction 9-10 Studies 02/26/2021 12:00:00 AM E DT [facility] ([facility] ) OFFICE OUTPATIENT VISIT 25 MINUTES 02/20/2021 12:00:00 AM EDT [facility] ([facility] ) Needle electromyography, each extremity, with related paraspinal areas, when performed, done with nerve conduction, amplitude and latency/velocity study; complete, five or more muscles studied, innervated by three or more nerves or four or more spinal levels (list separately in addition to the code for primary procedure). 02/12/2021 12:00:00 AM EDT [facility] ([facility] ) Needle electromyography, each extremity, with related paraspinal areas, when performed, done with nerve conduction, amplitude and latency/velocity study; complete, five or more muscles studied, innervated by three or more nerves or four or more spinal levels (list separately in addition to the code for primary procedure). 02/12/2021 12:00:00 AM EDT [facility] ([facility] ) Nerve Conduction 9-10 Studies 02/12/2021 12:00:00 AM E DT [facility] ([facility] ) OFFICE OUTPATIENT NEW 45 MINUTES 02/10/2021 12:00:00 A M EDT [facility] ([facility] ) Annual wellness visit, includes a person alized prevention plan of service (pps), subsequent visit MEDICARE ANNUAL WELLNESS VISIT (SUBSEQUENT) 01/13/2021 12:00:[address] [facility]) Annual wellness visit, includes a person alized prevention plan of service (pps), subsequent visit MEDICARE ANNUAL WELLNESS VISIT (SUBSEQUENT) 01/13/2021 12:00:00 AM EST [facility] ([facility]) Results ID Date Data Source [id number] 08/19/2021 10:40:00 AM EDT [facility] ([facility]) Name Value Range Interpretation Code Description Data Cinthia rce(s) Supporting Document(s) Glucose [Mass/volume] in Serum or Plasma 188 [facility] ([facility]) Hemoglobin A1c/Hemoglobin.total in Blood 7.0 [facility]) ID Date Data Source [id number] 08/15/2021 10:20:00 AM EDT [facility] Name Value Range Interpretation Code Description Data Cinthia rce(s) Supporting Document(s) SARS coronavirus 2 RNA [Presence] in Res piratory specimen by KB with probe detection NEGATIVE [facility] This lab was ordered by [facility] a nd reported by [facility]. ID Date Data Source [id number] 08/02/2021 11:35:00 AM EDT [facility] ([facility]) Name Value Range Interpretation Code Description Data Cinthia rce(s) Supporting Document(s) Laboratory test finding (navigational concept) Laboratory test result [facility]) ASSAY INFORMATION: Real Time RT-PCR NOTE: The COVID-19 assay has been cleared by the U.S. Food and Drug Administration under the Emergency Use Authorization (EUA). [employer] and [employer] are designated as high complexity laboratories by the Clinical Laboratory Improvement Amendments of 1988(CLIA) and are qualified to perform this test. Not Detected ID Date Data Source [id number] 08/02/2021 11:35:00 AM EDT [facility] Name Value Range Interpretation Code Description Data Cinthia rce(s) Supporting Document(s) SARS-CoV-2 (COVID-19) RNA [Presence] in Respiratory specimen by KB with probe detection Not Detected [facility] This lab was ordered by [facility] and reported by [employer] ID Date Data Source [id number] 07/30/2021 05:09:00 PM EDT [facility]) Name Value Range Interpretation Code Description Data Cinthia rce(s) Supporting Document(s) Miscellaneous Laboratory test result [facility] ([facility]) MRSA/MSSA nasal swab Methicillin resistant Staphylococcus aur eus (MRSA) DNA [Presence] in Unspecified specimen by Probe and target amplification method Laboratory test result [facility] ([facility]) MRSA/MSSA nasal swab ID Date Data Source [id number] 08/01/2021 01:33:40 PM EDT [facility] Name Value Range Interpretation Code Description Data Cinthia rce(s) Supporting Document(s) SPECIMEN DESCRIPTION Laborator y [facility] Corrected on 08/01 AT 1204: Previously r eported as THROAT SWAB METH RES STAPH AUR (NEG) Laboratory [facility] ID Date Data Source [id number] 06/20/2021 08:26:00 AM EDT [facility] DATE OF EXAM: 06/19/2021MRI BRAIN [...] for pituitary macroadenoma. Professional interpretation performed at [facility] .End of diagnostic report for accession: [id number] Interpreted: Michell Tam MDTranscribed: 06/20/2021 08:16 AMSigned: 06/20/2021 08:[address] [facility] ACC # [id number] BILL # [id number] 2MEM Name Value Range Interpretation Code Description Data Cinthia rce(s) Supporting Document(s) ID Date Data Source [id number] 06/12/2021 04:43:00 PM EDT [place] ([facility] Name Value Range Interpretation Code Description Data Cinthia rce(s) Supporting Document(s) Glucose [Mass/volume] in Urine collected for unspecified duration 1 Normal Glucose [place] ([facility]) ID Date Data Source [id number] 06/12/2021 04:43:00 PM EDT [place] ([facility]) Name Value Range Interpretation Code Description Data Cinthia rce(s) Supporting Document(s) Hemoglobin A1c/Hemoglobin.total in Blood 6.9 Abnormal (applies to non-numeric results) HbA1C [place] ([facility]) ID Date Data Source [id number] 02/17/2021 03:02:00 PM EDT [place] ([facility]) Name Value Range Interpretation Code Description Data Cinthia rce(s) Supporting Document(s) Reported Physicians See Note Reported Physici ans [place] ([facility]) Note: Reported Physicians:Ordering: ANGIE MCCALL [id number], FOREST BlackburnAttending: Laura GAN To: Laura GAN To: Martha Mejia ID Date Data Source [id number] 02/17/2021 03:02:00 PM EDT [place] ([facility]) Name Value Range Interpretation Code Description Data Cinthia rce(s) Supporting Document(s) BEDSIDE GLUCOSE 108 MG/DL Normal BEDSIDE GLUCOSE [facility] ([facility]) ID Date Data Source [id number] 02/17/2021 10:51:00 AM EDT [facility] ([facility]) Name Value Range Interpretation Code Description Data Cinthia rce(s) Supporting Document(s) Reported Physicians See Note Reported Physici ans [place] ([facility]) Note: Reported Physicians:Ordering: ANGIE MCCALL [id number], FOREST BlackburnAttending: Laura GAN To: Laura GAN To: Martha Mejia ID Date Data Source [id number] 02/17/2021 10:51:00 AM EDT [facility] ([facility]) Name Value Range Interpretation Code Description Data Cinthia rce(s) Supporting Document(s) BEDSIDE GLUCOSE 111 MG/DL Normal BEDSIDE GLUCOSE [facility] ([facility]) Note: Doctor Notified ID Date Data Source [id number] 02/17/2021 08:40:00 AM EDT [facility] ([facility]) Name Value Range Interpretation Code Description Data Cinthia rce(s) Supporting Document(s) Reported Physicians See Note Reported Physici [facility] ([facility]) Note: Reported Physicians:Ordering: Pay[place] [id number], Ian LowryAttending: Laura GAN To: Laura GAN To: Britni Cain To: Martha Mejia ID Date Data Source [id number] 02/17/2021 08:40:00 AM EDT [facility] ([facility]) Name Value Range Interpretation Code Description Data Cinthia rce(s) Supporting Document(s) SARS COVID-19 AMPLIFICATION NEGATIVE Normal SARS COV ID-19 AMPLIFICATION [facility] ([facility]) Note: A false negative result may occur [...] pathogens. DISCLAIMER: Testing was performed using the [employer] SARS-CoV-2 test. This test was developed and its performance characteristics determined by [employer]. This test has not been FDA cleared [...] or revoked sooner. ID Date Data Source [id number] 02/17/2021 08:40:00 AM EDT [facility] Name Value Range Interpretation Code Description Data Cinthia rce(s) Supporting Document(s) SARS coronavirus 2 RNA [Presence] in Res piratory specimen by KB with probe detection [facility]IVE [facility] lab was ordered by [facility] a nd reported by [facility]. ID Date Data Source [id number] 02/14/2021 01:00:00 PM EDT [facility] Name Value Range Interpretation Code Description Data Cinthia rce(s) Supporting Document(s) SARS coronavirus 2 RNA Not Detected [facility] [place] This lab was ordered by [facility] and reported by [facility]. ID Date Data Source [id number] 02/11/2021 08:34:00 AM EDT [facility] ([facility]) Name Value Range Interpretation Code Description Data Cinthia rce(s) Supporting Document(s) Insulin-like growth factor-I [Mass/volume] in Serum or Plasma 34 7 ng/mL 57-202 [facility] ([facility]) Performed at: [address] [id number] 61 Money Laundering Investigator: Houston Davidson MD, Phone: [phone] ID Date Data Source [id number] 02/11/2021 08:34:00 AM EDT [facility] ([facility]) Name Value Range Interpretation Code Description Data Cinthia rce(s) Supporting Document(s) Insulin-like growth factor-I [Mass/volume] in Serum or Plasma 34 7 ng/mL 57-202 [facility] ([facility]) Performed at: [address] [id number] 61 Money Laundering Investigator: Houston Davidson MD, Phone: [phone] ID Date Data Source [id number] 02/11/2021 08:31:00 AM [facility]T [facility] ([facility], ) Name Value Range Interpretation Code Description Data Cinthia rce(s) Supporting Document(s) Thiamine [Mass/volume] in Blood 170.7 nmol/L 66.5-200.0 [facility] ([facility], ) Performed at: [address] [id number] Money Laundering Investigator: Houston Davidson MD, Phone: [phone] Pyridoxine [Mass/volume] in Serum or Plasma 9.2 ug/L 2.0-32.8 [facility] ([facility], ) Specimen Comment: Test(s) 439887-Kdyntcy E(Alpha Tocopherol); 933201- Specimen Comment: Vitamin E(Gamma Tocopherol); 805395-Ylzempi B6; 880097- Specimen Comment: Vit. B1, Whole Blood Specimen Comment: was developed and its performance characteristics Specimen Comment: determined by [facility]. It has not been cleared or approved Specimen Comment: by the Food and Drug Administration. ID Date Data Source [id number] 02/11/2021 08:31:00 AM EDT [facility] ([facility], ) Name Value Range Interpretation Code Description Data Cinthia rce(s) Supporting Document(s) Vitamin E(Gamma Tocopherol) 0.9 mg/L 0.5-4.9 [facility] ([facility], ) Reference intervals for alpha and gamma- tocopherol determined from National Health and Nutrition Examination Survey, 5601-6713. Individuals with alpha-tocopherol levels less than 5.0 mg/L are considered vitamin E deficient. Vitamin E(Alpha Tocopherol) 12.8 mg/L 9.0-29.0 [facility] ([facility], ) ID Date Data Source [id number] 02/11/2021 08:31:00 AM EDT [facility] ([facility], ) Name Value Range Interpretation Code Description Data Cinthia rce(s) Supporting Document(s) Reagin Ab [Presence] in Serum by RPR Laboratory test result [facility] ([facility], ) ID Date Data Source [id number] 02/11/2021 08:31:00 AM EDT [facility] ([facility], ) Name Value Range Interpretation Code Description Data Cinthia rce(s) Supporting Document(s) Vitamin B12 Level 917 pg/mL [facility] ([facility], ) VITAMIN B12 NORMAL RANGE NORMAL 247 - 911 PG/ML INDETERMINATE 211 - 246 PG/ML DEFICIENT LESS THAN 211 PG/ML Folate 6.7 ng/mL [facility] ([facility], ) FOLATE NORMAL RANGE NORMAL GREATER THAN 5.4 NG/ML INDETERMINATE 3.4-5.4 NG/ML DEFICIENT LESS THAN 3.4 NG/ML ID Date Data Source [id number] 02/11/2021 08:31:00 AM EDT [facility] ([facility], ) Name Value Range Interpretation Code Description Data Cinthia rce(s) Supporting Document(s) Zdtgr-9-Rogvxmwx % 4.9 % 2.9-4.9 [facility] ([facility], ) Albumin % 60.0 % 55.8-66.1 [facility] ([facility], ) Adloz-8-Wfnqpdtwm % 11.7 % 7.1-11.8 [facility] ([facility], ) Lgui-6-Waqkqwguu % 6.0 % 3.2-6.5 [facility] ([facility], ) Advf-3-Isrspvxzw % 6.8 % 4.7-7.2 [facility] Gamma Globulin % 10.6 % 11.1-18.8 [facility] Albumin 3.72 GM/DL 3.29-5.55 [facility] ([facility], ) Sztrb-5-Cquwsrnyd 0.73 GM/DL 0.42-0.99 [facility] ([facility], ) Qhzsw-7-Kbspkedts 0.30 GM/DL 0.17-0.41 [facility] ([facility], ) Gstv-2-Nycvfolsm 0.42 GM/DL 0.28-0.60 [facility] ([facility], ) Wjes-9-Mxntjmjsf 0.37 GM/DL 0.19-0.55 [facility] ([facility], ) Gamma Globulins 0.66 GM/DL 0.65-1.58 [facility] ([facility]) Spep Interpretation Laboratory test result [facility] ([facility]) NO M-SPIKE(S)NOTED. Total Protein 6.2 GM/DL 6.4-8.2 [facility] ([facility]) Laboratory test finding (navigational concept) Laboratory test result [facility] ([facility]) REV'D BY O ADJAPONG ID Date Data Source [id number] 02/11/2021 08:31:00 AM EDT [facility] ([facility]) Name Value Range Interpretation Code Description Data Cinthia rce(s) Supporting Document(s) Laboratory test finding (navigational concept) Laboratory test result [facility] ([facility]) REV'D BY O ADJAPONG It Serum Interpretation Laboratory test result [facility] ([facility]) NO MONOCLONAL BANDS NOTED. ID Date Data Source [id number] 02/11/2021 08:31:00 AM EDT [facility] ([facility]) Name Value Range Interpretation Code Description Data Cinthia rce(s) Supporting Document(s) Hemoglobin A1c 5.9 % [facility] ([facility]) <content>REFERENCE RANGES:</content><br/ ><content></content>
<content><=5.6% NORMAL</content>
<content>5.7-6.4% SUGGESTS IMPAIRED GLUCOSE METABOLISM/PREDIABETIC</content>
<content>>= 6.5% ABNORMAL</content>
<content></content> Estimated Average Glucose 123 mg/dL 60-110 [facility] ([facility]) ID Date Data Source [id number] 01/25/2021 11:00:00 AM EST [facility] Name Value Range Interpretation Code Description Data Cinthia rce(s) Supporting Document(s) SARS coronavirus [address] [facility] This lab was ordered by [facility] and reported by [facility]. ID Date Data Source [id number] 01/18/2021 09:18:00 AM EST [facility] ([facility]) Name Value Range Interpretation Code Description Data Cinthia rce(s) Supporting Document(s) Reported Physicians See Note Reported Physici ans [facility] ([facility]) Note: Reported Physicians:Ordering: Ellen resendiz [id number] FNPAttending: Rosanna DianeCopy To: Rosanna DianeCopy To: Keenan Arteaga To: Martha Mejia ID Date Data Source [id number] 01/18/2021 09:18:00 AM EST [facility] ([facility]) Name Value Range Interpretation Code Description Data Cinthia rce(s) Supporting Document(s) THYROID STIMULATING HORMONE 1.010 uIU/ML Normal THYROI D STIMULATING HORMONE [facility]) FREE T4 1.14 NG/DL Normal FREE T4 [place] ([facility]) ID Date Data Source [id number] 01/18/2021 09:18:00 AM EST [place] ([facility]) Name Value Range Interpretation Code Description Data Cinthia rce(s) Supporting Document(s) Reported Physicians See Note Reported Physici ans [place] ([facility]) Note: Reported Physicians:Ordering: Ellen resendiz [id number], Jordan FNPAttending: Rosanna DianeCopy To: Vaughn Dianey To: Keenan Arteaga To: Martha Mejia ID Date Data Source [id number] 01/18/2021 09:18:00 AM EST [place] ([facility]) Name Value Range Interpretation Code Description Data Cinthia rce(s) Supporting Document(s) RED BLOOD COUNT 4.76 6/uL Normal RED [facility]LOOD COUNT [facility] ([facility]) Hemoglobin [Mass/volume] in Mixed venous blood by Oximetry 14.4 g/d l Normal HEMOGLOBIN [facility]) WHITE BLOOD COUNT 3.9 3/uL Below low normal WHITE BLOOD COUNT [facility]) MEAN CORPUSCULAR VOLUME 95.0 fl Normal MEAN CORPUSC ULAR VOLUME [facility]) Hematocrit [Pure volume fraction] of Blood by Automated count 45.2 % Normal HEMATOCRIT [facility]) MEAN CORPUSCULAR HEMOGLOBIN 30.3 pg Normal MEAN COR PUSCULAR HEMOGLOBIN [facility]) PLATELET COUNT, AUTOMATED 286 3/uL Normal PLATELET C OUNT, AUTOMATED [place] ([facility]) MEAN CORPUSCULAR HGB CONC 31.9 g/dl Below low caty l MEAN CORPUSCULAR HGB CONC [place] ([facility]) RED CELL DISTRIBUTION WIDTH 13.2 % Normal RED CELL DISTRIBUTION WIDTH [facility]) NUCLEATED RED BLOOD CELL % 0.0 % Normal NUCLEATED RED BLOOD CELL % [facility]) ID Date Data Source [id number] 01/18/2021 09:18:00 AM EST [place] ([facility]) Name Value Range Interpretation Code Description Data Cinthia rce(s) Supporting Document(s) Reported Physicians See Note Reported Physici ans [place] ([facility]) Note: Reported Physicians:Ordering: Ellen resendiz [phone], Jordan FNPAttending: Rosanna DianeCopmartín To: Rosanna DianeCopmartín To: Keenan Arteaga To: Martha Mejia ID Date Data Source [id number] 01/18/2021 09:18:00 AM EST [place] ([facility]) Name Value Range Interpretation Code Description Data Cinthia rce(s) Supporting Document(s) CPK CREATINE PHOSPHOKINASE 64 U/L Normal CPK CREAT INE PHOSPHOKINASE [facility]) ID Date Data Source [id number] 01/18/2021 09:18:00 AM EST [place] ([facility]) Name Value Range Interpretation Code Description Data Cinthia rce(s) Supporting Document(s) Reported Physicians See Note Reported Physici ans [place] ([facility]) Note: Reported Physicians:Ordering: Ellen resendiz [id number], Jordan FNPAttending: SabattusEliecer carcamoicaCopy To: Eliecer DianeicaCopy To: Keenan Arteaga To: Martha Mejia ID Date Data Source [id number] 01/18/2021 09:18:00 AM EST [facility] ([facility]) Name Value Range Interpretation Code Description Data Cinthia rce(s) Supporting Document(s) CK 1 (BB) 0 % Normal CK 1 (BB) [place] ([facility]) Note: Performed at: RN - [facility] [address] [id number] Money Laundering Investigator: Roxy Sheth MD, Phone: [phone] CK TOTAL 64 U/L Normal CK TOTAL [facility] ([facility]) CK 2 (MB) 0 % Normal CK 2 (MB) [facility] ([facility]) CK 3 (MM) 100 % Normal CK 3 (MM) [facility] ([facility]) CK MACRO I PERCENT 0 % Normal CK MACRO I PERCEN T [place] ([facility]) CK MACRO II PERCENT 0 % Normal CK MACRO II PERC ENT [facility] ([facility]) ID Date Data Source [id number] 01/18/2021 09:18:00 AM EST [place] ([facility]) Name Value Range Interpretation Code Description Data Cinthia rce(s) Supporting Document(s) Reported Physicians See Note Reported Physici ans [place] ([facility]) Note: Reported Physicians:Ordering: Ellen resendiz [id number], Jordan FNPAttending: Rosanna DianeCopmartín To: Rosanna DianeCopmartín To: Mich ArteagaCopmartín To: Martha Mejia ID Date Data Source [id number] 01/18/2021 09:18:00 AM EST [place] ([facility]) Name Value Range Interpretation Code Description Data Cinthia rce(s) Supporting Document(s) FREE T3 2.2 PG/ML Normal FREE T3 [place] ([facility]) ID Date Data Source [id number] 01/18/2021 09:18:00 AM EST [place] ([facility]) Name Value Range Interpretation Code Description Data Cinthia rce(s) Supporting Document(s) Reported Physicians See Note Reported Physici ans [place] ([facility]) Note: Reported Physicians:Ordering: Ellen Blanco [id number], Jordan FNPAttending: Rosanna DianeCopy To: Rosanna DianeCopy To: Mich ArteagaCopmartín To: Martha Mejia ID Date Data Source [id number] 01/18/2021 09:18:00 AM EST [facility] ([facility]) Name Value Range Interpretation Code Description Data Cinthia rce(s) Supporting Document(s) BLOOD UREA NITROGEN 22 MG/DL Above high normal BLOOD URE A NITROGEN [place] ([facility]) GLUCOSE, FASTING 123 MG/DL Above high normal GLUCOSE, FAS TING [place] ([facility]) CREATININE FOR GFR 0.51 MG/DL Below low normal CREATININE FOR GFR [place] ([facility]) SODIUM LEVEL 143 MEQ/L Normal SODIUM LEVEL [place] ( [facility]) POTASSIUM SERUM 4.2 MEQ/L Normal POTASSIUM SERUM GREE [facility] ([facility]) GLOMERULAR FILTRATION RATE > 60.0 Normal GLOMERULA R FILTRATION RATE [place] ([facility]) Note: Units are mL/min/1.73 m2 Chroni c Kidney Disease Staging per NKF: Stage I & II GFR >=60 Normal to Mildly Decreased Stage III GFR 30- 59 Moderately Decreased Stage IV GFR 15-29 Severely Decreased Stage V GFR <15 Very Little GFR Left ESRD GFR <15 on [employer]ANK SERVICER CARBON DIOXIDE LEVEL 35 MEQ/L Above high normal CARBON D IOXIDE LEVEL [place] ([facility]) Anion gap in Body fluid 4 MEQ/L Below low normal ANION GAP [facility]) CALCIUM LEVEL 9.5 MG/DL Normal CALCIUM LEVEL [facility]) CHLORIDE LEVEL 104 MEQ/L Normal CHLORIDE LEVEL [facility]) Alkaline phosphatase [Enzymatic activity/volume] in Se rum, Plasma or Blood 57 U/L Normal ALKALINE PHOSPHATASE [place] ([facility]) ALT/SGPT 23 U/L Normal ALT/SGPT [place] ([facility]) AST/SGOT 9 U/L Normal AST/SGOT [place] ([facility]) BILIRUBIN,TOTAL 0.1 MG/DL Below low normal BILIRUBIN,TOTA L [facility]) TOTAL PROTEIN 6.4 GM/DL Normal TOTAL PROTEIN [facility]) Albumin [Mass/volume] in Blood by Bromocresol purple ( BCP) dye binding method 3.1 GM/DL Below low normal ALBUMIN [place] ([facility]) ALBUMIN/GLOBULIN RATIO 0.9 Below low normal ALBUMIN /GLOBULIN RATIO [place] ([facility]) ID Date Data Source [id number] 01/06/2021 11:48:00 AM EST [facility] ([facility]) Name Value Range Interpretation Code Description Data Cinthia rce(s) Supporting Document(s) Hemoglobin A1c/Hemoglobin.total in Blood 4.9 [facility] ([facility]) Glucose [Mass/volume] in Serum or Plasma 67 [facility] ([facility]) ID Date Data Source [id number] 11/19/2020 12:00:00 AM EST [facility] Name Value Range Interpretation Code Description Data Cinthia rce(s) Supporting Document(s) SARS-CoV2 Rapid Antigen [facility] This lab was reported by [facility] loco ID Date Data Source [id number] 10/03/2020 05:26:00 PM EST [facility] ([facility]) Name Value Range Interpretation Code Description Data Cinthia rce(s) Supporting Document(s) Creatinine [Mass/volume] in Urine 78.1 mg/dL [facility] ([facility]) Microalbumin [Mass/volume] in Urine 2130.0 mg/L [facility] ([facility]) Microalbumin/Creatinine [Mass Ratio] in Urine 2727.2 MCG/MG 0.0-30.0 [facility] ([facility]) THE [employer] STATES THAT MICROALBUMINURIA IS PRESENT IF THE MICROALBUMIN/CREATININE RATIO EXCEEDS 30 MCG/MG. THE THRESHOLD FOR CLINICAL ALBUMINURIA IS REACHED AT 300 MCG/MG. THE CLASSIFICATION OF A PATIENT SHOULD BE BASED UPON AT LEAST 2 OF 3 ABNORMAL RESULTS ON SPECIMENS COLLECTED WITHIN A 3 TO 6 MONTH TIME FRAME. ID Date Data Source [id number] 10/03/2020 05:26:00 PM EST [facility] ([facility]) Name Value Range Interpretation Code Description Data Cinthia rce(s) Supporting Document(s) Glucose, Fasting 82 mg/dL 70-100 [facility] ([facility]) Creatinine For GFR 0.75 mg/dL 0.55-1.30 [facility] ([facility]) Blood Urea Nitrogen 28 mg/dL 7-18 [facility] ([facility] Glomerular Filtration Rate Laboratory test result [facility] ([facility]) <content>Units are mL/min/1.73 m2</content>
<content></content>
<content>Chronic Kidney Disease Staging per NKF:</content>
<content></content>
<content>Stage I & II GFR >=60 Normal to Mildly Decreased</content>
<content>Stage III GFR 30-59 Moderately Decreased</content>
<content>Stage IV GFR 15-29 Severely Decreased</content>
<content>Stage V GFR <15 Very Little GFR Left</content>
<content>ESRD GFR <15 on SEPTIC TANK SERVICER</content>
<content></content> Potassium Serum 4.1 meq/L 3.5-5.1 [facility] ([facility]) Sodium Level 145 meq/L 136-145 [facility]) Chloride Level 106 meq/L 98-107 [facility]) Carbon Dioxide Level 32 meq/L 21-32 [facility] ([facility]) Anion Gap 7 meq/L 8-16 [facility] ([facility]) Calcium Level 9.8 mg/dL 8.8-10.2 [facility] ([facility]) ID Date Data Source [id number] 09/03/2020 02:47:00 PM EDT [facility] ([facility]) Name Value Range Interpretation Code Description Data Cinthia rce(s) Supporting Document(s) Hemoglobin A1c/Hemoglobin.total in Blood 5.4 [facility] ([facility]) Glucose [Mass/volume] in Serum or Plasma 101 [facility] ([facility]) ID Date Data Source UA URINALYSIS 08/20/2020 09:32:52 AM EDT eCW1 ([facility]) Name Value Range Interpretation Code Description Data Cinthia rce(s) Supporting Document(s) Laboratory studies (set) UA URINALYS IS eCW1 ([facility]) ID Date Data Source URINE CULTURE 08/20/2020 09:32:44 AM EDT eCW1 ([facility]) Name Value Range Interpretation Code Description Data Cinthia rce(s) Supporting Document(s) Laboratory studies (set) URINE CULTU RE eCW1 ([facility]) ID Date Data Source PT & APTT 08/20/2020 09:32:32 AM EDT eCW1 ([facility]) Name Value Range Interpretation Code Description Data Cinthia rce(s) Supporting Document(s) 13.3 eCW1 ([facility]) 0.99 eCW1 ([facility]) 31.3 eCW1 ([facility]) ID Date Data Source Basic Metabolic Profile (BMP) 08/20/2020 04:51:29 AM EDT eCW 1 ([facility]) Name Value Range Interpretation Code Description Data Cinthia rce(s) Supporting Document(s) 56 eCW1 ([facility]) 26 eCW1 ([facility]) 141 eCW1 ([facility]) > 60.0 eCW1 ([facility]) 0.68 eCW1 ([facility]) 33 eCW1 ([facility]) 4.3 eCW1 ([facility]) 103 eCW1 ([facility]) 9.6 eCW1 ([facility]) ID Date Data Source CBC - Complete Blood Count 08/20/2020 04:51:15 AM EDT eCW1 ( [facility]) Name Value Range Interpretation Code Description Data Cinthia rce(s) Supporting Document(s) 4.5 eCW1 ([facility]) 4.70 eCW1 ([facility]) 98.9 eCW1 ([facility]) 31.1 eCW1 ([facility]) 46.5 eCW1 ([facility]) 14.6 eCW1 ([facility]) 359 eCW1 ([facility]) 14.1 eCW1 ([facility]) 31.4 eCW1 ([facility]) ID Date Data Source [id number] 07/31/2020 10:37:00 AM EDT [facility] ([facility]) Name Value Range Interpretation Code Description Data Cinthia rce(s) Supporting Document(s) Reported Physicians See Note Reported Physici ans [facility] ([facility]) Note: Reported Physicians:Ordering: ANGIE MCCALL [phone], FOREST BlackburnAttending: Laura GAN To: Laura GAN To: Martha Mejia ID Date Data Source [id number] 07/31/2020 10:37:00 AM EDT [facility] ([facility]) Name Value Range Interpretation Code Description Data Cinthia rce(s) Supporting Document(s) BEDSIDE GLUCOSE 78 MG/DL Below low normal BEDSIDE GLUCOS E [facility] ([facility]) Note: Nurse Notified ID Date Data Source [id number] 07/26/2020 11:00:00 AM EDT [facility] Name Value Range Interpretation Code Description Data Cinthia rce(s) Supporting Document(s) SARS coronavirus 2 RNA [facility] This lab was ordered by [facility] and reported by [facility]. Procedure Social History Code Duration Value Status Description Data Source(s ) Smoking 09/09/2021 12:00:00 AM EDT Former Smoker completed Former Smoker eCW1 ([facility]) Smoking 08/19/2021 12:00:00 AM EDT Patient has never smoked co mpleted Patient has never smoked [facility] ([facility]) Smoking 08/18/2021 12:00:00 AM EDT Former Smoker completed Former Smoker eCW1 ([facility]) Smoking 08/18/2021 12:00:00 AM EDT Former Smoker completed Former Smoker eCW1 ([facility]) Smoking 08/18/2021 12:00:00 AM EDT Former Smoker completed Former Smoker eCW1 ([facility]) Smoking 07/21/2021 12:00:00 AM EDT Former Smoker completed Former Smoker eCW1 ([facility]) Smoking 07/21/2021 12:00:00 AM EDT Former Smoker completed Former Smoker eCW1 ([facility]) Smoking 05/06/2021 12:00:00 AM EDT Patient is a former smoker completed Patient is a former smoker [facility] ([facility]) Smoking 01/13/2021 06:50:29 PM EST Never smoked tobacco (findi ng) completed Never smoked tobacco (finding) [facility] ([facility]) Smoking 12/31/2020 12:00:00 AM EST Former Smoker completed Former Smoker eCW1 ([facility]) Smoking 12/31/2020 12:00:00 AM EST Former Smoker completed Former Smoker eCW1 ([facility]) Smoking 12/31/2020 12:00:00 AM EST Former Smoker completed Former Smoker eCW1 ([facility]) Smoking 12/31/2020 12:00:00 AM EST Former Smoker completed Former Smoker eCW1 ([facility]) Smoking 12/31/2020 12:00:00 AM EST Former Smoker completed Former Smoker eCW1 ([facility]) Smoking 12/31/2020 12:00:00 AM EST Former Smoker completed Former Smoker eCW1 ([facility]) Smoking 11/23/2020 12:00:00 AM EST Patient is a former smoker completed Patient is a former smoker PAT ([facility]) Vital Signs ID Date Data Source UNK Name Value Range Interpretation Code Description Data Source(s) Systolic blood pressure 118 mm[Hg] 118 mm[Hg] [facility] ([facility]) Diastolic blood pressure 80 mm[Hg] 80 mm[Hg] [facility]) Heart rate 78 /min 78 /min [facility] ([facility]) Body height 61 [in_i] 61 [in_i] PAT ([facility]) 5'1" Body weight 107.50 [lb_av] 107.50 [lb_av] [facility] T ([facility]) Body mass index (BMI) [Ratio] 20.3 kg/m2 20.3 k g/m2 [facility] ([facility]) Oxygen saturation in Arterial blood by Pulse oximetry 96 % 96 % [facility] ([facility]) Systolic blood pressure 160 mm[Hg] 160 mm[Hg] [facility] Diastolic blood pressure 92 mm[Hg] 92 mm[Hg] [facility] ([facility]) Body weight 111.00 [lb_av] 111.00 [lb_av] [facility] T ([facility]) Body mass index (BMI) [Ratio] 21.3 kg/m2 21.3 k g/m2 [facility] ([facility]) Heart rate 71 /min 71 /min [facility] ([facility]) Body height 60.5 [in_i] 60.5 [in_i] [facility] ([facility]) 5'0.50" Diastolic blood pressure 80 mm[Hg] 80 mm[Hg] [facility] ([facility]) Systolic blood pressure 140 mm[Hg] 140 mm[Hg] G REENWAY ([facility]) Body mass index (BMI) [Ratio] 21.2 kg/m2 21.2 k g/m2 [facility] ([facility]) Body surface area Derived from formula 1.42 m2 1.42 m2 [place] ([facility]) Oxygen saturation in Arterial blood by Pulse oximetry 96 % 96 % [facility] ([facility]) Heart rate 80 /min 80 /min [facility] Respiratory rate 20 /min 20 /min [facility] ([facility]) Body temperature 97.3 [degF] 97.3 [degF] [facility]) Body height 59.5 [in_i] 59.5 [in_i] KADI ([facility]) Body weight 107 [lb_av] 107 [lb_av] KADI ([facility]) Body weight 106 [lb_av] 106 [lb_av] eCW1 ([facility]) Body mass index (BMI) [Ratio] 21.05 kg/m2 21.05 kg/m2 eCW1 ([facility]) Heart rate 77 /min 77 /min eCW1 ([facility]) Respiratory rate 18 /min 18 /min eCW1 ([facility]) Body temperature 97.7 [degF] 97.7 [degF] eCW1 ( [facility]) Systolic blood pressure 136 mm[Hg] 136 mm[Hg] e CW1 ([facility]) Diastolic blood pressure 86 mm[Hg] 86 mm[Hg] eCW1 ([facility]) Body weight 48.08 kg 48.08 kg eCW1 ([facility], 1928–1983) Body height 59.5 [in_i] 59.5 [in_i] eCW1 ([facility]) Systolic blood pressure 150 mm[Hg] 150 mm[Hg] M EDENT ([facility]) Diastolic blood pressure 86 mm[Hg] 86 mm[Hg] [facility] ([facility]) Body height 60 [in_i] 60 [in_i] [facility] ([facility]) 5'0" Body weight 106.00 [lb_av] 106.00 [lb_av] MEDEN T ([facility]) Body mass index (BMI) [Ratio] 20.7 kg/m2 20.7 k g/m2 [facility] ([facility]) [place] body weight 100 [lb_av] 100 [lb_av] MEDEN T ([facility]) Body weight 48.082 kg 48.082 kg [facility] ([facility]) Body surface area Derived from formula 1.43 m2 1.43 m2 [facility] ([facility]) Body surface area Derived from formula 1.42 m2 1.42 m2 [place] ([facility]) Oxygen saturation in Arterial blood by Pulse oximetry 95 % 95 % [place] ([facility]) Inhaled oxygen flow rate 0 L/min 0 L/min [place] ([facility]) Diastolic blood pressure 68 mm[Hg] 68 mm[Hg] [place] ([facility]) Body mass index (BMI) [Ratio] 21.1 kg/m2 21.1 k g/m2 [place] ([facility]) Inhaled oxygen concentration 21 % 21 % [place] ([facility]) Systolic blood pressure 122 mm[Hg] 122 mm[Hg] [place] ([facility]) Heart rate 61 /min 61 /min [place] ([facility]) Respiratory rate 24 /min 24 /min [place] ([facility]) Body temperature 97.6 [degF] 97.6 [degF] [facility] ([facility]) Body height 59.5 [in_i] 59.5 [in_i] KADI ([facility]) Body weight 106 [lb_av] 106 [lb_av] KADI ([facility]) Respiratory rate 12 /min 12 /min MEDENT ( [facility] ) Body height 61 [in_i] 61 [in_i] MEDENT ([facility], ) 5'1" Body weight 105.00 [lb_av] 105.00 [lb_av] MEDEN T ([facility], ) Body mass index (BMI) [Ratio] 19.8 kg/m2 19.8 k g/m2 MEDENT ([facility], ) [place] body weight 105 [lb_av] 105 [lb_av] MEDEN T ([facility], ) Body mass index (BMI) [Ratio] 21.1 kg/m2 21.1 k g/m2 MEDENT ([facility]) Body height 60.5 [in_i] 60.5 [in_i] MEDENT ([facility]) 5'0.50" Systolic blood pressure 129 mm[Hg] 129 mm[Hg] M EDENT ([facility]) Diastolic blood pressure 78 mm[Hg] 78 mm[Hg] MEDENT ([facility]) Heart rate 73 /min 73 /min MEDENT ([facility]) Body weight 110.00 [lb_av] 110.00 [lb_av] MEDEN T ([facility]) Body temperature 36.9 Melissa 36.9 Melissa MEDENT ( [facility]) Respiratory rate 73 /min 73 /min MEDENT ( [facility]) Body temperature 98.5 [degF] 98.5 [degF] MEDENT ([facility]) Body height 62 [in_i] 62 [...] (BMI) [Ratio] 21.1 kg/m2 21.1 k g/m2 [place] ([facility]) Body surface area Derived from formula 1.42 m2 1.42 m2 [place] ([facility]) Oxygen saturation in Arterial blood by Pulse oximetry 97 % 97 % [place] ([facility]) Inhaled oxygen flow rate 0 L/min 0 L/min [place] ([facility]) Inhaled oxygen concentration 21 % 21 % [place] ([facility]) Systolic blood pressure 140 mm[Hg] 140 mm[Hg] [place] ([facility]) Diastolic blood pressure 90 mm[Hg] 90 mm[Hg] [place] ([facility]) Heart rate 71 /min 71 /min [place] ([facility]) Respiratory rate 18 /min 18 /min [place] ([facility]) Body temperature 94.5 [degF] 94.5 [degF] [facility] ([facility]) Body height 59.5 [in_i] 59.5 [in_i] [facility] 106 [lb_av] 106 [lb_av] [facility] Heart rate 60 /min 60 /min MEDENT ([facility]) Diastolic blood pressure 80 mm[Hg] 80 mm[Hg] MED[facility] ([facility]) Body temperature 97.5 [degF] 97.5 [degF] MEDENT ([facility]) Body height 61 [in_i] 61 [in_i] MED[facility] ([facility]) 5'1" Body weight 108.25 [lb_av] 108.25 [lb_av] MEDEN T ([facility]) Body mass index (BMI) [Ratio] 20.5 kg/m2 20.5 k g/m2 MED[facility] ([facility]) Oxygen saturation in Arterial blood by Pulse oximetry 98 % 98 % [facility] ([facility]) Systolic blood pressure 136 mm[Hg] 136 mm[Hg] M EDENT ([facility]) Body temperature 97.2 [degF] 97.2 [degF] MEDENT (John Chavez [facility]) Systolic blood pressure 144 mm[Hg] 144 mm[Hg] M EDENT (John Chavez MD) Diastolic blood pressure 80 mm[Hg] 80 mm[Hg] [facility] (John Chavez MD) Heart rate 63 /min 63 /min MEDENT (John Chavez MD) Oxygen saturation in Arterial blood by Pulse oximetry 95 % 95 % [facility] (John Chavez MD) Body height 62 [in_i] 62 [in_i] MED[facility] (John Chavez MD) 5'2" Body weight 107.12 [lb_av] 107.12 [lb_av] MEDEN T (John Chavez MD) Body mass index (BMI) [Ratio] 19.6 kg/m2 19.6 k g/m2 MEDENT (John Chavez MD) Inhaled oxygen concentration 21 % 21 % [place] ([facility]) Systolic blood pressure 118 mm[Hg] 118 mm[Hg] [facility] ([facility]) Diastolic blood pressure 68 mm[Hg] 68 mm[Hg] [place] ([facility]) Body mass index (BMI) [Ratio] 20.7 kg/m2 20.7 k g/m2 [place] ([facility]) Body surface area Derived from formula 1.41 m2 1.41 m2 [place] ([facility]) Heart rate 87 /min 87 /min [place] ([facility]) Respiratory rate 24 /min 24 /min [place] ([facility]) Body temperature 98.1 [degF] 98.1 [degF] [facility] ([facility]) Body height 59.5 [in_i] 59.5 [in_i] [place] ([facility]) Body weight 104 [lb_av] 104 [lb_av] [place] ([facility]) Oxygen saturation in Arterial blood by Pulse oximetry 94 % 94 % [place] ([facility]) Inhaled oxygen flow rate 0 L/min 0 L/min [place] ([facility]) Systolic blood pressure 138 mm[Hg] 138 mm[Hg] EDENT ([facility] ) Diastolic blood pressure 80 mm[Hg] 80 mm[Hg] MED[facility] ([facility] ) Heart rate 77 /min 77 /[facility] Body temperature 95.1 [degF] 95.1 [degF] [facility] Body height 61 [in_i] 61 [in_i] [facility] ([facility] ) 5'1" Body weight 105.25 [lb_av] 105.25 [lb_av] MEDEN T ([facility] ) Body mass index (BMI) [Ratio] 19.9 kg/m2 19.9 k g/m2 [facility] ([facility] ) Oxygen saturation in Arterial blood by Pulse oximetry 98 % 98 % [facility] ([facility] Respiratory rate 12 /min 12 /min [facility] ( [facility] ) Body height 61 [in_i] 61 [in_i] [facility] ([facility], ) 5'1" Body weight 105.00 [lb_av] 105.00 [lb_av] MEDEN T ([facility], ) Body mass index (BMI) [Ratio] 19.8 kg/m2 19.8 k g/m2 [facility] ([facility] ) [place] body weight 105 [lb_av] 105 [lb_av] MEDEN T ([facility], ) Body temperature 95.9 [degF] 95.9 [degF] MEDENT ([facility] ) Body height 61 [in_i] 61 [in_i] [facility] ([facility] ) 5'1" Body weight 103.50 [lb_av] 103.50 [lb_av] MEDEN T ([facility] ) Systolic blood pressure 124 mm[Hg] 124 mm[Hg] M EDENT ([facility]) Diastolic blood pressure 86 mm[Hg] 86 mm[Hg] MED[facility] ([facility]) Heart rate 71 /min 71 /min MED[facility] ([facility]) Body mass index (BMI) [Ratio] 19.6 kg/m2 19.6 k g/m2 [facility] ([facility]) Oxygen saturation in Arterial blood by Pulse oximetry 96 % 96 % [facility] ([facility]) Diastolic blood pressure 80 mm[Hg] 80 mm[Hg] [place] ([facility]) Systolic blood pressure 146 mm[Hg] 146 mm[Hg] [facility] ([facility]) Body mass index (BMI) [Ratio] 20.6 kg/m2 20.6 k g/m2 [place] ([facility]) Body surface area Derived from formula 1.40 m2 1.40 m2 [place] ([facility]) Oxygen saturation in Arterial blood by Pulse oximetry 95 % 95 % [place] ([facility]) Heart rate 76 /min 76 /min [place] ([facility]) Respiratory rate 20 /min 20 /min [place] ([facility]) Body temperature 97.4 [degF] 97.4 [degF] [facility] ([facility]) Body height 59.5 [in_i] 59.5 [in_i] [place] ([facility]) Body weight 103.5 [lb_av] 103.5 [lb_av] [facility] ([facility]) Systolic blood pressure 110 mm[Hg] 110 mm[Hg] [facility] ([facility]) Diastolic blood pressure 60 mm[Hg] 60 mm[Hg] [place] ([facility]) Body mass index (BMI) [Ratio] 20.5 kg/m2 20.5 k g/m2 [place] ([facility]) Body surface area Derived from formula 1.40 m2 1.40 m2 [place] ([facility]) Oxygen saturation in Arterial blood by Pulse oximetry 96 % 96 % [place] ([facility]) Heart rate 76 /min 76 /min [place] ([facility]) Respiratory rate 20 /min 20 /min [place] ([facility]) Body temperature 96.7 [degF] 96.7 [degF] [facility] ([facility]) Body height 59.5 [in_i] 59.5 [in_i] KADI ([facility]) Body weight 103 [lb_av] 103 [lb_av] KADI ([facility]) Body mass index (BMI) [Ratio] 21.1 kg/m2 21.1 k g/m2 [place] ([facility]) Body surface area Derived from formula 1.42 m2 1.42 m2 [place] ([facility]) Oxygen saturation in Arterial blood by Pulse oximetry 81 % 81 % [place] ([facility]) Systolic blood pressure 138 mm[Hg] 138 mm[Hg] [facility] ([facility]) Diastolic blood pressure 80 mm[Hg] 80 mm[Hg] [place] ([facility]) Heart rate 88 /min 88 /min KADI ([facility]) Respiratory rate 20 /min 20 /min [place] ([facility]) Body temperature 98 [degF] 98 [degF] [place] ([facility]) Body height 59.5 [in_i] 59.5 [in_i] [place] ([facility]) Body weight 106 [lb_av] 106 [lb_av] [place] ([facility]) Body surface area Derived from formula 1.42 m2 1.42 m2 [place] ([facility]) Oxygen saturation in Arterial blood by Pulse oximetry 81 % 81 % [place] ([facility]) Heart rate 88 /min 88 /min [place] ([facility]) Respiratory rate 20 /min 20 /min [place] ([facility]) Systolic blood pressure 138 mm[Hg] 138 mm[Hg] [facility] ([facility]) Body temperature 98 [degF] 98 [degF] [place] ([facility]) Diastolic blood pressure 80 mm[Hg] 80 mm[Hg] KADI ([facility]) Body height 59.5 [in_i] 59.5 [in_i] KADI ([facility]) Body mass index (BMI) [Ratio] 21.1 kg/m2 21.1 k g/m2 KADI ([facility]) Body weight 106 [lb_av] 106 [lb_av] KADI ([facility]) Diastolic blood pressure 74 mm[Hg] 74 mm[Hg] MEDENT ([facility] ) Oxygen saturation in Arterial blood by Pulse oximetry 96 % 96 % MEDENT ([facility]) Body height 61 [in_i] 61 [in_i] [facility] ([facility]) 5'1" Body weight 103.50 [lb_av] 103.50 [lb_av] MEDEN T ([facility]) Systolic blood pressure 118 mm[Hg] 118 mm[Hg] M EDENT ([facility]) Heart rate 69 /min 69 /min [facility] ([facility]) Body temperature 96.4 [degF] 96.4 [degF] [facility] ([facility] ) Body mass index (BMI) [Ratio] 19.6 kg/m2 19.6 k g/m2 [facility] ([facility] ) Body weight 104 [lb_av] 104 [lb_av] eCW1 ([facility]) Body height 59.5 [in_i] 59.5 [in_i] eCW1 ([facility]) Body mass index (BMI) [Ratio] 20.65 kg/m2 20.65 kg/m2 eCW1 ([facility]) Heart rate 66 /min 66 /min eCW1 ([facility]) Respiratory rate 18 /min 18 /min eCW1 ([facility]) Diastolic blood pressure 88 mm[Hg] 88 mm[Hg] eCW1 ([facility]) Systolic blood pressure 138 mm[Hg] 138 mm[Hg] e CW1 ([facility]) Body temperature 97.8 [degF] 97.8 [degF] MEDENT ([facility]) Body weight 106.00 [lb_av] 106.00 [lb_av] MEDEN T ([facility], [facility]) Systolic blood pressure 142 mm[Hg] 142 mm[Hg] M EDENT ([facility], [facility]) Body height 62 [in_i] 62 [in_i] [facility], [facility]) 5'2" Diastolic blood pressure 93 mm[Hg] 93 mm[Hg] [facility] ([facility], [facility]) Heart rate 89 /min 89 /min MEDENT ([facility], [facility]) Respiratory rate 18 /min 18 /min [facility] ( [facility], [facility]) Oxygen saturation in Arterial blood by Pulse oximetry 96 % 96 % [facility] ([facility], [facility]) Body mass index (BMI) [Ratio] 19.4 kg/m2 19.4 k g/m2 [facility] ([facility], [facility]) Systolic blood pressure 124 mm[Hg] 124 mm[Hg] [facility] ([facility], [facility]) Diastolic blood pressure 76 mm[Hg] 76 mm[Hg] [facility] ([facility], [facility]) Heart rate 77 /min 77 /min [facility], [facility]) Respiratory rate 18 /min 18 /min [facility] ( [facility], [facility]) Oxygen saturation in Arterial blood by Pulse oximetry 96 % 96 % [facility] ([facility], [facility]) Body temperature 99.3 [degF] 99.3 [degF] [facility] ([facility], [facility]) Body weight 106.00 [lb_av] 106.00 [lb_av] [facility], [facility]) Systolic blood pressure 132 mm[Hg] 132 mm[Hg] [place] ([facility]) Diastolic blood pressure 86 mm[Hg] 86 mm[Hg] [place] ([facility]) Body height 59.75 [in_i] 59.75 [in_i] [place] ([facility]) Body weight 114 [lb_av] 114 [lb_av] KADI ([facility]) Body mass index (BMI) [Ratio] 22.5 kg/m2 22.5 k g/m2 [place] ([facility]) Body surface area Derived from formula 1.47 m2 1.47 m2 [place] ([facility]) Oxygen saturation in Arterial blood by Pulse oximetry 94 % 94 % [place] ([facility]) Inhaled oxygen flow rate 0 L/min 0 L/min [place] ([facility]) Inhaled oxygen concentration 21 % 21 % [place] ([facility]) Heart rate 66 /min 66 /min [place] ([facility]) Respiratory rate 22 /min 22 /min [place] ([facility]) Body temperature 96.8 [degF] 96.8 [degF] [facility] ([facility]) Body height 60 [in_i] 60 [in_i] [facility] ([facility]) 5'0" Body weight 113.00 [lb_av] 113.00 [lb_av] MEDEN T ([facility]) [place] body weight 100 [lb_av] 100 [lb_av] MEDEN T ([facility]) Body weight 51.257 kg 51.257 kg [facility] ([facility]) Body mass index (BMI) [Ratio] 22.1 kg/m2 22.1 k g/m2 [facility] ([facility]) Systolic blood pressure 142 mm[Hg] 142 mm[Hg] [facility] ([facility]) Diastolic blood pressure 84 mm[Hg] 84 mm[Hg] [facility] ([facility]) Body height 60 [in_i] 60 [in_i] [facility] ([facility]) 5'0" Body weight 113.00 [lb_av] 113.00 [lb_av] MED[place] T ([facility]) Body mass index (BMI) [Ratio] 22.1 kg/m2 22.1 k g/m2 [facility] ([facility]) [place] body weight 100 [lb_av] 100 [lb_av] MED[facility] T ([facility]) Body weight 51.257 kg 51.257 kg [facility] ([facility]) Body surface area Derived from formula 1.46 m2 1.46 m2 [facility] ([facility], ) Diastolic blood pressure 80 mm[Hg] 80 mm[Hg] MED[facility] ([facility]) Body temperature 96.6 [degF] 96.6 [degF] [facility] ([facility]) Body height 61 [in_i] 61 [in_i] [facility] ([facility]) 5'1" Systolic blood pressure 152 mm[Hg] 152 mm[Hg] M EDENT ([facility]) Body weight 114.25 [lb_av] 114.25 [lb_av] MED[facility] T ([facility]) Heart rate 66 /min 66 /min [facility] Body mass index (BMI) [Ratio] 21.6 kg/m2 21.6 k g/m2 [facility] ([facility]) Oxygen saturation in Arterial blood by Pulse oximetry 97 % 97 % [facility] ([facility]) Systolic blood pressure 152 mm[Hg] 152 mm[Hg] [facility] Diastolic blood pressure 98 mm[Hg] 98 mm[Hg] [facility] ([facility]) Body height 60 [in_i] 60 [in_i] [facility] ([facility]) 5'0" Body weight 114.00 [lb_av] 114.00 [lb_av] MED[facility] T ([facility]) Body mass index (BMI) [Ratio] 22.3 kg/m2 22.3 k g/m2 [facility] ([facility]) [place] body weight 100 [lb_av] 100 [lb_av] MEDEN T ([facility]) Body weight 51.710 kg 51.710 kg [facility] ([facility]) Respiratory rate 24 /min 24 /min KADI ([facility]) Systolic blood pressure 124 mm[Hg] 124 mm[Hg] [place] ([facility]) Diastolic blood pressure 66 mm[Hg] 66 mm[Hg] [place] ([facility]) Heart rate 81 /min 81 /min KAD[place] ([facility]) Body surface area Derived from formula 1.49 m2 1.49 m2 [place] ([facility]) Oxygen saturation in Arterial blood by Pulse oximetry 95 % 95 % [place] ([facility]) Inhaled oxygen flow rate 0 L/min 0 L/min [place] ([facility]) Inhaled oxygen concentration 21 % 21 % [place] ([facility]) Body temperature 97.6 [degF] 97.6 [degF] [facility] Body height 59.75 [in_i] 59.75 [in_i] [place] ([facility]) Body weight 119 [lb_av] 119 [lb_av] [place] ([facility]) Body mass index (BMI) [Ratio] 23.4 kg/m2 23.4 k g/m2 [place] ([facility]) Patient Treatment Plan of Care Planned Activity Planned Date Details Description Data Source (s) NITROFURANTOIN, MACROCRYSTALS 25 MG / Ni trofurantoin, Monohydrate 75 MG Oral Capsule [Macrobid] 08/05/2021 12:00:00 AM EDT eC W1 ([facility]) NITROFURANTOIN, MACROCRYSTALS 25 MG / Ni trofurantoin, Monohydrate 75 MG Oral Capsule [Macrobid] 08/05/2021 12:00:00 AM EDT eC W1 ([facility]) NITROFURANTOIN, MACROCRYSTALS 25 MG / Ni trofurantoin, Monohydrate 75 MG Oral Capsule [Macrobid] 08/05/2021 12:00:00 AM EDT eC W1 ([facility]) NITROFURANTOIN, MACROCRYSTALS 25 MG / Ni trofurantoin, Monohydrate 75 MG Oral Capsule [Macrobid] 08/05/2021 12:00:00 AM EDT eC W1 ([facility]) NITROFURANTOIN, MACROCRYSTALS 25 MG / Ni trofurantoin, Monohydrate 75 MG Oral Capsule [Macrobid] 08/05/2021 12:00:00 AM EDT eC W1 ([facility]) Huggies Pull-Ups Miscellaneous 06/12/2021 12:00:00 AM EDT [place] ([facility]) Huggies Pull-Ups Miscellaneous 06/12/2021 12:00:00 AM EDT [place] ([facility]) Fenofibrate 48 MG Oral Tablet 06/12/2021 12:00:00 AM EDT [place] ([facility]) 12 HR Bupropion Hydrochloride 100 MG Extended Release Oral Tablet 06/12/2021 12:00:00 AM EDT [place] ([facility]) carbamide peroxide 65 MG/ML Otic Solution [Murine Ear] 06/12/2021 12:00:00 AM EDT [place] ([facility]) cetirizine hydrochloride 10 MG Oral Tablet 06/12/2021 12:00:00 AM E DT [place] ([facility]) Sumatriptan 25 MG Oral Tablet 06/12/2021 12:00:00 AM EDT [place] ([facility]) Omeprazole 20 MG Delayed Release Oral Capsule 06/12/2021 12:00:00 A M EDT [place] ([facility]) Multivitamins Oral Capsule 06/12/2021 12:00:00 AM EDT [place] ([facility]) gabapentin 300 MG Oral Capsule 06/12/2021 12:00:00 AM EDT [place] ([facility]) Cholecalciferol 1000 UNT Oral Capsule 06/12/2021 12:00:00 AM EDT [place] ([facility]) Magnesium Oxide 400 MG Oral Tablet 06/12/2021 12:00:00 AM EDT [place] ([facility]) Simvastatin 40 MG Oral Tablet 06/12/2021 12:00:00 AM EDT [place] ([facility]) 7 ACTUAT umeclidinium 0.0625 MG/ACTUAT Dry Powder Inha ler [Incruse] 06/12/2021 12:00:00 AM EDT [place] ([facility]) ammonium lactate 120 MG/ML Topical Lotion 06/12/2021 12:00:00 AM ED T [place] ([facility]) ferrous sulfate 325 MG Oral Tablet 06/12/2021 12:00:00 AM EDT [place] ([facility]) Alendronic acid 70 MG Oral Tablet 06/01/2021 12:00:00 AM EDT [place] ([facility]) Fluticasone Propionate 50 MCG/ACT Nasal Suspension 05/28/2021 12 :00:00 AM EDT [facility]) ferrous sulfate 325 MG Oral Tablet 04/10/2021 12:00:00 AM T [facility]) Fenofibrate 48 MG Oral Tablet 04/10/2021 12:00:00 AM EDT [facility]) 12 HR Bupropion Hydrochloride 100 MG Extended Release Oral Tablet 04/10/2021 12:00:00 AM EDT [facility]) Multivitamins Oral Capsule 04/10/2021 12:00:00 AM T [facility]) gabapentin 300 MG Oral Capsule 04/10/2021 12:00:00 AM [facility]) Omeprazole 20 MG Delayed Release Oral Capsule 04/04/2021 12:00:00 A M [facility]) cetirizine hydrochloride 10 MG Oral Tablet 04/04/2021 12:00:00 AM E DT [place] ([facility]) Fiber-Lax 625 MG Oral Tablet 04/04/2021 12:00:00 AM [facility]) Sumatriptan 25 MG Oral Tablet 04/01/2021 12:00:00 AM [facility]) 7 ACTUAT umeclidinium 0.0625 MG/ACTUAT Dry Powder Inha ler [Incruse] 04/01/2021 12:00:00 AM EDT [place] ([facility]) Cholecalciferol 1000 UNT Oral Capsule 03/20/2021 12:00:00 AM EDT [facility]) Magnesium Oxide 400 MG Oral Tablet 03/14/2021 12:00:00 AM EDT [facility]) Fluticasone Propionate 50 MCG/ACT Nasal Suspension 03/05/2021 12 :00:00 AM T [facility]) Huggies Pull-Ups Miscellaneous 03/05/2021 12:00:00 AM EDT [place] ([facility]) Alendronic acid 70 MG Oral Tablet 03/05/2021 12:00:00 AM EDT [place] ([facility]) Magnesium Oxide 400 MG Oral Tablet 03/05/2021 12:00:00 AM EDT [place] ([facility]) carbamide peroxide 65 MG/ML Otic Solution [Murine Ear] 03/05/2021 12:00:00 AM EDT [place] ([facility]) Simvastatin 40 MG Oral Tablet 03/05/2021 12:00:00 AM EDT [place] ([facility]) 12 HR Bupropion Hydrochloride 100 MG Extended Release Oral Tablet 02/08/2021 12:00:00 AM EDT [place] ([facility]) Cephalexin 500 MG Oral Capsule 02/05/2021 12:00:00 AM EDT [place] ([facility]) Multivitamins Oral Capsule 01/21/2021 12:00:00 AM EST [place] ([facility]) NITROFURANTOIN, MACROCRYSTALS 25 MG / Ni trofurantoin, Monohydrate 75 MG Oral Capsule [Macrobid] 01/20/2021 12:00:00 AM EST eC [place] ([facility]) NITROFURANTOIN, MACROCRYSTALS 25 MG / Ni trofurantoin, Monohydrate 75 MG Oral Capsule [Macrobid] 01/20/2021 12:00:00 AM EST eC [facility]1 ([facility]) NITROFURANTOIN, MACROCRYSTALS 25 MG / Ni trofurantoin, Monohydrate 75 MG Oral Capsule [Macrobid] 01/20/2021 12:00:00 AM EST eC [facility]1 ([facility]) NITROFURANTOIN, MACROCRYSTALS 25 MG / Ni trofurantoin, Monohydrate 75 MG Oral Capsule [Macrobid] 01/20/2021 12:00:00 AM EST eC W1 ([facility]) cetirizine hydrochloride 10 MG Oral Tablet 01/13/2021 12:00:[address] [place] ([facility]) Fenofibrate 48 MG Oral Tablet 01/13/2021 12:00:00 AM [facility] ([facility]) ferrous sulfate 325 MG Oral Tablet 01/13/2021 12:00:00 AM [facility] ([facility]) calcium polycarbophil 625 MG Oral Tablet [FiberCon] 01/13/20 12:00:00 AM [facility] ([facility]) Omeprazole 20 MG Delayed Release Oral Capsule 01/13/2021 12:00:00 A M EST [place] ([facility]) gabapentin 300 MG Oral Capsule 01/13/2021 12:00:[address] [facility]) 7 ACTUAT umeclidinium 0.0625 MG/ACTUAT Dry Powder Inha ler [Incruse] 01/13/2021 12:00:00 AM [facility] ([facility]) Sumatriptan 25 MG Oral Tablet 01/13/2021 12:00:00 AM [facility] ([facility]) ferrous sulfate 325 MG Oral Tablet 01/10/2021 12:00:00 AM [facility] ([facility]) Alendronic acid 70 MG Oral Tablet 01/07/2021 12:00:[address] [facility]) Sure Comfort Pen [place] 32G X 6 MM Miscellaneous 01/02/2021 12: 00:00 AM [facility] ([facility]) Fluticasone Propionate 50 MCG/ACT Nasal Suspension 12/27/2020 12 :00:00 AM [facility] ([facility]) Magnesium Oxide 400 MG Oral Tablet 12/20/2020 12:00:00 AM [facility] ([facility]) carbamide peroxide 65 MG/ML Otic Solution [Murine Ear] 12/17/2020 12:00:00 AM [facility] ([facility]) ferrous sulfate 325 MG Oral Tablet 12/13/2020 12:00:00 AM [facility] ([facility]) ammonium lactate 120 MG/ML Topical Lotion 12/08/2020 12:00:00 AM [facility] ([facility]) Simvastatin 40 MG Oral Tablet 12/05/2020 12:00:[address] [facility]) Cholecalciferol 1000 UNT Oral Capsule 12/05/2020 12:00:[address] [facility]) 12 HR Bupropion Hydrochloride 100 MG Extended Release Oral Tablet 11/25/2020 12:00:00 AM [facility]) calcium polycarbophil 625 MG Oral Tablet [FiberCon] 11/19/20 12:00:[address] [facility]) gabapentin 300 MG Oral Capsule 11/11/2020 12:00:[address] [facility]) Omeprazole 20 MG Delayed Release Oral Capsule 11/11/2020 12:00:[address] [facility]) cetirizine hydrochloride 10 MG Oral Tablet 11/05/2020 12:00:00 AM E [facility] ([facility]) Fenofibrate 48 MG Oral Tablet 11/05/2020 12:00:[address] [facility]) 7 ACTUAT umeclidinium 0.0625 MG/ACTUAT Dry Powder Inha ler [Incruse] 10/25/2020 12:00:00 AM [facility]) Magnesium 400 MG Oral Tablet 10/21/2020 12:00:[address] [facility]) Fenofibrate 48 MG Oral Tablet 10/08/2020 12:00:[address] [facility]) 12 HR Bupropion Hydrochloride 100 MG Extended Release Oral Tablet 10/08/2020 12:00:00 AM [facility] ([facility]) cetirizine hydrochloride 10 MG Oral Tablet 10/08/2020 12:00:00 AM E [facility] ([facility]) Huggies Pull-Ups Miscellaneous 10/03/2020 12:00:[address] [facility]) 7 ACTUAT umeclidinium 0.0625 MG/ACTUAT Dry Powder Inha ler [Incruse] 09/28/2020 12:00:00 AM [facility]) ferrous sulfate 325 MG Oral Tablet 09/26/2020 12:00:00 AM [facility] ([facility]) Alendronic acid 70 MG Oral Tablet [Fosamax] 09/26/2020 12:00:00 AM [facility] ([facility]) Magnesium 400 MG Oral Tablet 09/25/2020 12:00:00 AM [facility] ([facility]) ammonium lactate 120 MG/ML Topical Lotion [Lac-Hydrin] 09/19/2020 12:00:00 AM EDT [place] ([facility]) Multivitamins Oral Capsule 09/18/2020 [facility] Cholecalciferol 1000 UNT Oral Capsule 09/18/2020 12:00:00 AM [facility] ([facility]) Simvastatin 40 MG Oral Tablet 09/18/2020 12:00:00 AM [facility] ([facility]) 12 HR Bupropion Hydrochloride 100 MG Extended Release Oral Tablet 09/10/2020 12:00:00 AM [facility] ([facility]) cetirizine hydrochloride 10 MG Oral Tablet 09/10/2020 12:00:00 AM E [facility] ([facility]) Fenofibrate 48 MG Oral Tablet 09/10/2020 12:00:00 AM T [place] ([facility]) calcium polycarbophil 625 MG Oral Tablet [FiberCon] 09/02/20 [facility] Magnesium 400 MG Oral Tablet 08/29/2020 12:00:00 AM [facility] ([facility]) 7 ACTUAT umeclidinium 0.0625 MG/ACTUAT Dry Powder Inha ler [Incruse] 08/22/2020 12:00:00 AM EDT [place] ([facility]) 200 ACTUAT Albuterol 0.09 MG/ACTUAT Metered Dose Inhal er [Ventolin] 08/22/2020 12:[facility] gabapentin 300 MG Oral Capsule 07/26/2020 12:00:00 AM EDT [facility]) Multivitamins Oral Capsule 07/24/2020 12:00:00 AM EDT [facility]) Omeprazole 20 MG Delayed Release Oral Capsule 07/23/2020 12:00:00 A M EDT [facility]) gabapentin 300 MG Oral Capsule 06/18/2020 12:00:00 AM T [facility]) ammonium lactate 120 MG/ML Topical Lotion [Lac-Hydrin] 06/18/2020 12:00:00 AM EDT [facility]) Fenofibrate 48 MG Oral Tablet 06/04/2020 12:00:00 AM T [facility]) 200 ACTUAT Albuterol 0.09 MG/ACTUAT Metered Dose Inhal er [Ventolin] 06/04/2020 12:00:00 AM T [facility]) cetirizine hydrochloride 10 MG Oral Tablet 06/04/2020 12:00:00 AM E DT [facility]) Riboflavin 400 MG Oral Tablet 06/04/2020 12:00:00 AM T [facility]) Sumatriptan 25 MG Oral Tablet 06/04/2020 12:00:00 AM T [facility]) ferrous sulfate 325 MG Oral Tablet 06/04/2020 12:00:00 AM [facility]) Cholecalciferol 1000 UNT Oral Capsule 06/04/2020 12:00:00 AM T [facility]) 12 HR Bupropion Hydrochloride 100 MG Extended Release Oral Tablet 06/04/2020 12:00:00 AM T [facility]) Fluticasone Propionate 50 MCG/ACT Nasal Suspension 06/04/2020 12 :00:00 AM T [facility]) Magnesium Oxide 400 MG Oral Tablet 06/04/2020 12:00:00 AM T [facility]) Alendronic acid 70 MG Oral Tablet [Fosamax] 06/04/2020 12:00:00 AM T [facility]) Multivitamins Oral Capsule 06/03/2020 12:00:00 AM EDT [place] ([facility]) 7 ACTUAT umeclidinium 0.0625 MG/ACTUAT Dry Powder Inha ler [Incruse] 06/03/2020 12:00:00 AM EDT [place] ([facility]) calcium polycarbophil 625 MG Oral Tablet [FiberCon] 06/03/20 20 12:00:00 AM EDT [place] ([facility]) Simvastatin 40 MG Oral Tablet 05/29/2020 12:00:00 AM EDT [place] ([facility]) Omeprazole 20 MG Delayed Release Oral Capsule 05/03/2020 12:00:00 A M [facility] ([facility]) carbamide peroxide 65 MG/ML Otic Solution [Debrox] 03/05/2020 12 :[facility] BD Pen Needle Micro U/F 32G X 6 MM Miscellaneous 12/04/2019 12:00:0 0 AM [facility] ([facility])
[2021-09-19] MEDS ORDERED: NS 1,000 ML IV ONE (16:10)
--- NOTE | 2021-09-19 16:38 | REP ---
INDICATION: congestion, fatigue, elev glucose. COMPARISON: 08/03/2021 latest prior TECHNIQUE: PA and lateral FINDINGS: There is cardiomegaly. A diffuse increase in the interstitial markings has developed since the last exam. There is a haziness throughout the pulmonary vascularity. No patchy opacities or pleural effusions have developed. The osseous structures are stable and intact. IMPRESSION: Cardiomegaly and increased interstitial markings as described above consistent with mild CHF. <Electronically signed by Óscar Emerson > 09/19/21 [id number]
[2021-09-19] MEDS ORDERED: ACETAMINOPHEN TAB 650MG DOSE (2X325MG) PO ONE (16:50)
[2021-09-19 16:53] LABS: BASO % 0.3 % (0.0-1.0); EOS # 0.1 10^3/uL (0.0-0.5); EOS % 1.5 % (0.0-3.0); HEMATOCRIT 39.1 % (36.0-47.0); HEMOGLOBIN 12.5 g/dl (12.0-15.5); LYMPH # 0.9 10^3/uL (1.5-5.0); LYMPH % 27.3 % (24.0-44.0); MEAN CORPUSCULAR HEMOGLOBIN 29.8 pg (27.0-33.0); MEAN CORPUSCULAR VOLUME 93.1 fl (80.0-96.0); MONO # 0.4 10^3/uL (0.0-0.8); MONO % 10.7 % (2.0-8.0); NEUTROPHILS % 59.6 % (36.0-66.0); PLATELET COUNT, AUTOMATED 211 10^3/uL (150-450); WHITE BLOOD COUNT 3.4 10^3/uL (4.0-10.0)
[2021-09-19 17:22] LABS: ACETONE/KETONE 1.19 MG/DL (<2.81); C REACTIVE PROTEIN QUANTITATIV < 0.30 MG/DL (0.00-0.30)
[2021-09-19 17:48] LABS: ERYTHROCYTE SEDIMENTATION RATE 35 mm/hr (0-30)
[2021-09-19] MEDS ORDERED: FUROSEMIDE 20 MG TAB PO ONE (18:40)
[2021-09-19] MEDS ORDERED: CEFDINIR 300 MG CAP (OMNICEF) PO ONE (18:40)
[2021-09-19] MEDS ORDERED: CEFD1CAP8 PO (18:47)
[2021-09-19 18:52] VITALS: BP 192/108
== END 2021-09-19 19:34 | disposition home or self-care (01) ==
LOC: M ED 12:28
DX: E11.65 Type 2 diabetes mellitus with hyperglycemia (principal); I50.9 Heart failure, unspecified; J44.9 Chronic obstructive pulmonary disease, unspecified; Z79.84 Long term (current) use of oral hypoglycemic drugs; Z79.51 Long term (current) use of inhaled steroids; Z79.899 Other long term (current) drug therapy; Z88.6 Allergy status to analgesic agent

== ENCOUNTER → 2021-09-23 | Outpatient (REF) | payer MEDICARE, MEDICAID ==
[~2021-09-23] MED LIST changes: +CEFD1CAP8 PO
[2021-09-23 18:34] LABS: MAGNESIUM LEVEL 1.9 MG/DL (1.8-2.4)
[2021-09-24 13:28] LABS: TOTAL PROTEIN 6.2 GM/DL (6.4-8.2)
[2021-09-24 14:27] LABS: CREATININE,RANDOM URINE 50.8 MG/DL; TOTAL PROTEIN,RANDOM URINE 311.5 MG/DL (0.0-12.0)
[2021-09-25 13:41] LABS: ALBUMIN 3.68 GM/DL (3.29-5.55); ALBUMIN % 59.4 % (55.8-66.1); ALPHA-1-GLOBULIN % 4.6 % (2.9-4.9); ALPHA-1-GLOBULINS 0.29 GM/DL (0.17-0.41); ALPHA-2-GLOBULINS 0.74 GM/DL (0.42-0.99); ALPHA-2-GLOBULINS % 11.9 % (7.1-11.8); BETA-1-GLOBULINS 0.45 GM/DL (0.28-0.60); BETA-1-GLOBULINS % 7.2 % (4.7-7.2); BETA-2-GLOBULINS 0.37 GM/DL (0.19-0.55); BETA-2-GLOBULINS % 5.9 % (3.2-6.5); GAMMA GLOBULINS 0.68 GM/DL (0.65-1.58)
== END ==
LOC: M LAB REF 17:52
PROVIDERS: ATTEND Internal Medicine Nephrology
DX: N18.1 Chronic kidney disease, stage 1 (principal); R80.9 Proteinuria, unspecified

== ENCOUNTER → 2021-09-24 | Outpatient (CLI) | payer MEDICARE, MEDICAID ==
[2021-09-24 16:12] LABS: BLOOD UREA NITROGEN 34 MG/DL (7-18); CARBON DIOXIDE LEVEL 32 MEQ/L (21-32); CHLORIDE LEVEL 104 MEQ/L (98-107); CREATININE FOR GFR 0.76 MG/DL (0.55-1.30); GLOMERULAR FILTRATION RATE > 60.0 (>45); GLUCOSE, FASTING 199 MG/DL (70-100); NT-PRO BNP 90 PG/ML (<125); POTASSIUM SERUM 4.2 MEQ/L (3.5-5.1); SODIUM LEVEL 141 MEQ/L (136-145); TROPONIN I < 0.02 NG/ML (< 0.10)
== END ==
LOC: M WUC 10:58
PROVIDERS: ATTEND Family Medicine
DX: I50.21 Acute systolic (congestive) heart failure (principal); R60.9 Edema, unspecified

== ENCOUNTER → 2021-10-03 | Outpatient (CLI) | payer MEDICARE, MEDICAID ==
[2021-10-03 16:04] LABS: APPEARANCE, URINE HAZY (CLEAR); BACTERIA, URINE AUTO NEGATIVE (NEGATIVE); BILIRUBIN, URINE AUTO NEGATIVE (NEGATIVE); BLOOD, URINE BLOOD 3+ (NEGATIVE); COLOR, URINE YELLOW (YELLOW); GLUCOSE, URINE (UA) AUTO 3+ mg/dL (NEGATIVE); KETONE, URINE AUTO NEGATIVE (NEGATIVE); LEUKOCYTE ESTERASE, URINE AUTO TRACE (NEGATIVE); NITRITE, URINE AUTO NEGATIVE (NEGATIVE); PROTEIN, URINE AUTO 3+ mg/dL (NEGATIVE); RBC, URINE AUTO TNTC /HPF (0-3); SPECIFIC GRAVITY URINE AUTO 1.021 (1.002-1.035); SQUAMOUS EPITHELIAL CELL UR AU 0 /HPF (0-6); UROBILINOGEN, URINE AUTO 0.2 mg/dL (0.0-2.0); WBC, URINE AUTO 0 /HPF (0-3)
== END ==
LOC: M WUC 14:11
PROVIDERS: ATTEND Registered Nurse
DX: N39.0 Urinary tract infection, site not specified (principal)

== ENCOUNTER → 2021-10-03 | Outpatient (CLI) | payer MEDICARE, MEDICAID ==
--- NOTE | 2021-10-03 14:32 | REP ---
INDICATION: ACUTE SYSTOLIC CONGESTIVE HEART FAILURE. COMPARISON: 09/19/2021 TECHNIQUE: Two views of the chest were obtained. FINDINGS: Moderate cardiomegaly is present. No abnormality of the aorta is seen however the pulmonary vascularity is minimally prominent in upper lobes and the vessels at the lung bases are indistinct peripherally suggestive of early cardiac decompensation. Moderate degenerative changes are present in midthoracic spine, unchanged from previous. IMPRESSION: Changes consistent with early cardiac decompensation. <Electronically signed by Garth Horowitz > 10/03/21 [id number]
[2021-10-03 16:35] LABS: BLOOD UREA NITROGEN 36 MG/DL (7-18); CARBON DIOXIDE LEVEL 32 MEQ/L (21-32); CHLORIDE LEVEL 109 MEQ/L (98-107); CREATININE FOR GFR 0.74 MG/DL (0.55-1.30); GLOMERULAR FILTRATION RATE > 60.0 (>45); GLUCOSE, FASTING 145 MG/DL (70-100); NT-PRO BNP 83 PG/ML (<125); POTASSIUM SERUM 4.2 MEQ/L (3.5-5.1); SODIUM LEVEL 146 MEQ/L (136-145)
== END ==
LOC: M WUC 14:07
PROVIDERS: ATTEND Family Medicine
DX: I50.21 Acute systolic (congestive) heart failure (principal); I51.7 Cardiomegaly; N39.0 Urinary tract infection, site not specified

== ENCOUNTER → 2021-10-22 | Outpatient (CLI) | payer MEDICARE, MEDICAID ==
[~2021-10-22] MED LIST changes: -CEFD1CAP8 PO; +CEFD300C41 PO; +OMEP-173 PO; -OMEP-218 PO
== END ==
LOC: M RAD 17:16
PROVIDERS: ATTEND Family Medicine
DX: D34 Benign neoplasm of thyroid gland (principal)

== ENCOUNTER → 2021-12-10 | Outpatient (CLI) | payer MEDICARE, MEDICAID ==
[2021-12-10 19:45] LABS: HEMATOCRIT 44.6 % (36.0-47.0); HEMOGLOBIN 13.8 g/dl (12.0-15.5); MEAN CORPUSCULAR HEMOGLOBIN 30.1 pg (27.0-33.0); MEAN CORPUSCULAR HGB CONC 30.9 g/dl (32.0-36.5); MEAN CORPUSCULAR VOLUME 97.2 fl (80.0-96.0); PLATELET COUNT, AUTOMATED 267 10^3/uL (150-450); RED BLOOD COUNT 4.59 10^6/uL (4.00-5.40); WHITE BLOOD COUNT 3.1 10^3/uL (4.0-10.0)
[2021-12-10 19:51] LABS: APPEARANCE, URINE CLOUDY (CLEAR); BACTERIA, URINE AUTO 1+ (NEGATIVE); BILIRUBIN, URINE AUTO NEGATIVE (NEGATIVE); BLOOD, URINE BLOOD 1+ (NEGATIVE); COLOR, URINE YELLOW (YELLOW); GLUCOSE, URINE (UA) AUTO 3+ mg/dL (NEGATIVE); KETONE, URINE AUTO NEGATIVE (NEGATIVE); LEUKOCYTE ESTERASE, URINE AUTO 3+ (NEGATIVE); MUCUS, URINE SMALL (NEGATIVE); NITRITE, URINE AUTO NEGATIVE (NEGATIVE); PROTEIN, URINE AUTO 2+ mg/dL (NEGATIVE); RBC, URINE AUTO 8 /HPF (0-3); SPECIFIC GRAVITY URINE AUTO 1.013 (1.002-1.035); SQUAMOUS EPITHELIAL CELL UR AU 0 /HPF (0-6); UROBILINOGEN, URINE AUTO 0.2 mg/dL (0.0-2.0); WBC, URINE AUTO TNTC /HPF (0-3)
[2021-12-10 19:52] LABS: BLOOD UREA NITROGEN 28 MG/DL (7-18); CALCIUM LEVEL 9.6 MG/DL (8.8-10.2); CARBON DIOXIDE LEVEL 29 MEQ/L (21-32); CHLORIDE LEVEL 106 MEQ/L (98-107); CREATININE FOR GFR 0.71 MG/DL (0.55-1.30); GLOMERULAR FILTRATION RATE > 60.0 (>45); GLUCOSE, FASTING 195 MG/DL (70-100); NT-PRO BNP 81 PG/ML (<125); POTASSIUM SERUM 3.8 MEQ/L (3.5-5.1); SODIUM LEVEL 142 MEQ/L (136-145)
== END ==
LOC: M WUC 13:32
PROVIDERS: ATTEND Registered Nurse
DX: I50.9 Heart failure, unspecified (principal); N39.0 Urinary tract infection, site not specified

== ENCOUNTER → 2021-12-23 | Outpatient (CLI) | payer MEDICARE, MEDICAID ==
[2021-12-23 12:52] LABS: APPEARANCE, URINE TURBID (CLEAR); BACTERIA, URINE AUTO 1+ (NEGATIVE); BILIRUBIN, URINE AUTO NEGATIVE (NEGATIVE); BLOOD, URINE BLOOD NEGATIVE (NEGATIVE); COLOR, URINE AMBER (YELLOW); GLUCOSE, URINE (UA) AUTO 3+ mg/dL (NEGATIVE); KETONE, URINE AUTO NEGATIVE (NEGATIVE); LEUKOCYTE ESTERASE, URINE AUTO 3+ (NEGATIVE); MUCUS, URINE SMALL (NEGATIVE); NITRITE, URINE AUTO NEGATIVE (NEGATIVE); PROTEIN, URINE AUTO 3+ mg/dL (NEGATIVE); RBC, URINE AUTO 10 /HPF (0-3); SPECIFIC GRAVITY URINE AUTO 1.014 (1.002-1.035); SQUAMOUS EPITHELIAL CELL UR AU 0 /HPF (0-6); UROBILINOGEN, URINE AUTO 0.2 mg/dL (0.0-2.0); WBC, URINE AUTO TNTC /HPF (0-3)
== END ==
LOC: M WUC 11:10
PROVIDERS: ATTEND Registered Nurse
DX: N39.0 Urinary tract infection, site not specified (principal)

== ENCOUNTER → 2022-01-21 | Outpatient (REF) | payer MEDICARE, MEDICAID ==
[2022-01-22 08:47] LABS: CREATININE,RANDOM URINE < 13.0 MG/DL; TOTAL PROTEIN,RANDOM URINE 37.5 MG/DL (0.0-12.0)
== END ==
LOC: M LAB REF 17:02
PROVIDERS: ATTEND Nurse Practitioner Family
DX: R80.9 Proteinuria, unspecified (principal)

== ENCOUNTER → 2022-01-28 | Outpatient (CLI) | payer MEDICARE, MEDICAID ==
[~2022-01-28] MED LIST changes: +FURO20TA2 PO; +JARD1TAB; +NITR50CA34; +RIME75TA PO; +VITA500C24 PO
[2022-01-28 12:56] LABS: BLOOD UREA NITROGEN 38 MG/DL (7-18); CARBON DIOXIDE LEVEL 34 MEQ/L (21-32); CHLORIDE LEVEL 110 MEQ/L (98-107); CORTISOL BASELINE 20.2 UG/DL (4.3-22.4); CREATININE FOR GFR 0.73 MG/DL (0.55-1.30); FREE T4 0.68 NG/DL (0.76-1.46); GLOMERULAR FILTRATION RATE > 60.0 (>45); GLUCOSE, FASTING 125 MG/DL (70-100); PROLACTIN 6.7 NG/ML; SODIUM LEVEL 147 MEQ/L (136-145); THYROID STIMULATING HORMONE 0.529 uIU/ML (0.358-3.740)
[2022-01-28 12:57] LABS: FOLLICLE STIMULATING HORMONE 1.8 mIU/mL; LUTEINIZING HORMONE < 0.1 mIU/mL
== END ==
LOC: M WUC 10:53
PROVIDERS: ATTEND Internal Medicine Endocrinology, Diabetes & Metabolism
DX: Z01.818 Encounter for other preprocedural examination (principal); E11.65 Type 2 diabetes mellitus with hyperglycemia; N13.5 Crossing vessel and stricture of ureter without hydronephrosis

== ENCOUNTER → 2022-01-28 | Outpatient (CLI) | payer MEDICARE, MEDICAID ==
[2022-01-28 12:19] LABS: APPEARANCE, URINE CLOUDY (CLEAR); BACTERIA, URINE AUTO NEGATIVE (NEGATIVE); BILIRUBIN, URINE AUTO NEGATIVE (NEGATIVE); BLOOD, URINE BLOOD 3+ (NEGATIVE); COLOR, URINE YELLOW (YELLOW); GLUCOSE, URINE (UA) AUTO 3+ mg/dL (NEGATIVE); KETONE, URINE AUTO NEGATIVE (NEGATIVE); LEUKOCYTE ESTERASE, URINE AUTO 3+ (NEGATIVE); MUCUS, URINE SMALL (NEGATIVE); NITRITE, URINE AUTO NEGATIVE (NEGATIVE); PROTEIN, URINE AUTO 2+ mg/dL (NEGATIVE); RBC, URINE AUTO 61 /HPF (0-3); SPECIFIC GRAVITY URINE AUTO 1.014 (1.002-1.035); SQUAMOUS EPITHELIAL CELL UR AU 0 /HPF (0-6); UROBILINOGEN, URINE AUTO 0.2 mg/dL (0.0-2.0); WBC, URINE AUTO TNTC /HPF (0-3)
[2022-01-28 12:21] LABS: HEMATOCRIT 45.2 % (36.0-47.0); HEMOGLOBIN 14.3 g/dl (12.0-15.5); MEAN CORPUSCULAR HEMOGLOBIN 30.4 pg (27.0-33.0); MEAN CORPUSCULAR HGB CONC 31.6 g/dl (32.0-36.5); MEAN CORPUSCULAR VOLUME 96.2 fl (80.0-96.0); PLATELET COUNT, AUTOMATED 237 10^3/uL (150-450); WHITE BLOOD COUNT 3.5 10^3/uL (4.0-10.0)
[2022-01-28 12:32] LABS: INR 0.9; PROTHROMBIN TIME 12.6 SECONDS (12.7-14.5)
[2022-01-28 12:33] LABS: PARTIAL THROMBOPLASTIN TIME 27.2 SECONDS (25.9-37.0)
[2022-01-28 12:46] LABS: BLOOD UREA NITROGEN 39 MG/DL (7-18); CARBON DIOXIDE LEVEL 34 MEQ/L (21-32); CHLORIDE LEVEL 110 MEQ/L (98-107); GLOMERULAR FILTRATION RATE > 60.0 (>45); GLUCOSE, FASTING 127 MG/DL (70-100); SODIUM LEVEL 147 MEQ/L (136-145)
== END ==
LOC: M WUC 10:57
PROVIDERS: ATTEND Nurse Practitioner Women's Health
DX: Z01.818 Encounter for other preprocedural examination (principal); N13.5 Crossing vessel and stricture of ureter without hydronephrosis

== ENCOUNTER → 2022-02-02 | Outpatient (CLI) | payer MEDICARE, MEDICAID | LOC: M LABSMTC 09:33 | PROVIDERS: ATTEND Anesthesiology | DX: Z01.812 Encounter for preprocedural laboratory examination (principal); Z20.822 Contact with and (suspected) exposure to COVID-19 ==

== ENCOUNTER 2022-02-05 12:43 | Emergency (ER) | payer MEDICARE, MEDICAID ==
[~2022-02-05] VITALS: Ht 156.2 cm; Wt 55.5 kg
[2022-02-05 16:19] VITALS: BP 170/100
[2022-02-05 19:52] LABS: BASO % 0.2 % (0.0-1.0); EOS # 0.1 10^3/uL (0.0-0.5); EOS % 1.4 % (0.0-3.0); HEMATOCRIT 42.7 % (36.0-47.0); HEMOGLOBIN 13.9 g/dl (12.0-15.5); LYMPH # 0.8 10^3/uL (1.5-5.0); LYMPH % 15.1 % (24.0-44.0); MEAN CORPUSCULAR HEMOGLOBIN 30.8 pg (27.0-33.0); MEAN CORPUSCULAR HGB CONC 32.6 g/dl (32.0-36.5); MEAN CORPUSCULAR VOLUME 94.5 fl (80.0-96.0); MONO # 0.5 10^3/uL (0.0-0.8); MONO % 9.9 % (2.0-8.0); NEUTROPHILS # 3.7 10^3/uL (1.5-8.5); PLATELET COUNT, AUTOMATED 277 10^3/uL (150-450); RED BLOOD COUNT 4.52 10^6/uL (4.00-5.40); WHITE BLOOD COUNT 5.2 10^3/uL (4.0-10.0)
[2022-02-05 20:07] LABS: BLOOD UREA NITROGEN 27 MG/DL (7-18); C REACTIVE PROTEIN QUANTITATIV 1.58 MG/DL (0.00-0.30); CALCIUM LEVEL 9.1 MG/DL (8.8-10.2); CARBON DIOXIDE LEVEL 36 MEQ/L (21-32); CHLORIDE LEVEL 105 MEQ/L (98-107); CREATININE FOR GFR 0.71 MG/DL (0.55-1.30); GLOMERULAR FILTRATION RATE > 60.0 (>45); GLUCOSE, FASTING 128 MG/DL (70-100); POTASSIUM SERUM 3.9 MEQ/L (3.5-5.1); SODIUM LEVEL 144 MEQ/L (136-145)
[2022-02-05 20:51] LABS: ERYTHROCYTE SEDIMENTATION RATE 49 mm/hr (0-30)
== END 2022-02-05 21:23 | disposition home or self-care (01) ==
LOC: M ED 12:43
DX: S50.311A Abrasion of right elbow, initial encounter (principal); W01.198A Fall on same level from slipping, tripping and stumbling with subsequent striking against other object, initial encounter; Y92.9 Unspecified place or not applicable; Y93.9 Activity, unspecified; Y99.9 Unspecified external cause status; E11.9 Type 2 diabetes mellitus without complications; J44.9 Chronic obstructive pulmonary disease, unspecified; Z87.442 Personal history of urinary calculi; Z79.899 Other long term (current) drug therapy; Z88.8 Allergy status to other drugs, medicaments and biological substances

== ENCOUNTER 2022-02-06 11:54 | Day surgery (SDC) | payer MEDICARE, MEDICAID ==
[~2022-02-06] VITALS: Ht 154.9 cm; Wt 53.4 kg
[~2022-02-06 11:54] MED LIST changes: +CIPROFLOXACIN 400 MG in IV 1 EA IV ONE; +LR 1,000 ML IV ONE
[2022-02-06] MEDS ORDERED: MIDAZOLAM INJ 2MG/2ML VIAL (J2250 PER 1MG) As Ordered ONE (13:28)
[2022-02-06] MEDS ORDERED: ONDANSETRON 4MG/2ML VIAL As Ordered ONE (13:29)
[2022-02-06] MEDS ORDERED: fentaNYL 100 MCG/2 ML INJECTION As Ordered ONE (13:29)
[2022-02-06] MEDS ORDERED: propofoL 200 MG/20 ML VIAL As Ordered ONE (13:29)
[2022-02-06] MEDS ORDERED: LIDOCAINE 2% 100MG/5ML SDV (FOR ANES.) As Ordered ONE (13:29)
[2022-02-06] MEDS ORDERED: dexameTHASONE 4 MG/ML 1ML VIAL (J1100 PER 1MG) As Ordered ONE (13:29)
[2022-02-06] MEDS ORDERED: LIDOCAINE 2% 5ML JELLY UROJET As Ordered ONE (14:39)
[2022-02-06] MEDS ORDERED: ALBUTEROL SULFATE 2.5 MG/0.5 ML INH NEB SOLN As Ordered ONE (14:48)
[2022-02-06] MEDS ORDERED: ceFAZolin 2 GM/D5W 50 ML IV BAG (J0690 PER 500MG) As Ordered ONE (14:52)
[2022-02-06] MEDS ORDERED: ALBUTEROL SULFATE 2.5 MG/0.5 ML INH NEB SOLN INH ONE (14:55)
[2022-02-06] MEDS ORDERED: CONRAY-60 60% 50ML VIAL (Q9961) As Ordered ONE (14:57)
[2022-02-06 16:10] VITALS: BP 160/95
== END 2022-02-06 17:05 | disposition home or self-care (01) ==
LOC: M SDC 11:54
PROVIDERS: ATTEND Urology
DX: N13.5 Crossing vessel and stricture of ureter without hydronephrosis (principal); F70 Mild intellectual disabilities; F10.11 Alcohol abuse, in remission; K58.8 Other irritable bowel syndrome; K21.9 Gastro-esophageal reflux disease without esophagitis; J44.9 Chronic obstructive pulmonary disease, unspecified; F41.9 Anxiety disorder, unspecified; F32.9 Major depressive disorder, single episode, unspecified; E11.9 Type 2 diabetes mellitus without complications; R94.31 Abnormal electrocardiogram [ECG] [EKG]; E78.5 Hyperlipidemia, unspecified; Z88.8 Allergy status to other drugs, medicaments and biological substances; D64.9 Anemia, unspecified; G47.30 Sleep apnea, unspecified; Z79.899 Other long term (current) drug therapy
CPT/HCPCS: 52332; 74420; C1769; C2617; J0690; J1100; J2250; J2405; J3010; Q9961

== ENCOUNTER 2022-02-12 11:17 | Emergency (ER) | payer MEDICARE, MEDICAID ==
[~2022-02-12 11:17] MED LIST changes: -CIPROFLOXACIN 400 MG in IV 1 EA IV ONE; -LR 1,000 ML IV ONE
[2022-02-12 12:51] LABS: BASO % 0.4 % (0.0-1.0); EOS # 0.1 10^3/uL (0.0-0.5); EOS % 1.5 % (0.0-3.0); HEMATOCRIT 44.1 % (36.0-47.0); HEMOGLOBIN 14.1 g/dl (12.0-15.5); LYMPH # 0.8 10^3/uL (1.5-5.0); LYMPH % 14.9 % (24.0-44.0); MEAN CORPUSCULAR HEMOGLOBIN 29.9 pg (27.0-33.0); MEAN CORPUSCULAR VOLUME 93.6 fl (80.0-96.0); MONO # 0.4 10^3/uL (0.0-0.8); MONO % 6.4 % (2.0-8.0); NEUTROPHILS # 4.2 10^3/uL (1.5-8.5); NEUTROPHILS % 76.1 % (36.0-66.0); PLATELET COUNT, AUTOMATED 319 10^3/uL (150-450); RED BLOOD COUNT 4.71 10^6/uL (4.00-5.40); WHITE BLOOD COUNT 5.5 10^3/uL (4.0-10.0)
[2022-02-12 13:12] LABS: BLOOD UREA NITROGEN 31 MG/DL (7-18); CALCIUM LEVEL 10.4 MG/DL (8.8-10.2); CARBON DIOXIDE LEVEL 31 MEQ/L (21-32); CHLORIDE LEVEL 108 MEQ/L (98-107); CREATININE FOR GFR 0.59 MG/DL (0.55-1.30); GLOMERULAR FILTRATION RATE > 60.0 (>45); GLUCOSE, FASTING 154 MG/DL (70-100); POTASSIUM SERUM 4.7 MEQ/L (3.5-5.1); SODIUM LEVEL 144 MEQ/L (136-145)
[2022-02-12 14:15] VITALS: BP 148/82
== END 2022-02-12 14:25 | disposition home or self-care (01) ==
LOC: EDBD 11:17 → M ED 11:17
DX: I10 Essential (primary) hypertension (principal); E11.9 Type 2 diabetes mellitus without complications; Z79.84 Long term (current) use of oral hypoglycemic drugs; Z79.899 Other long term (current) drug therapy; Z88.8 Allergy status to other drugs, medicaments and biological substances

== ENCOUNTER → 2022-03-09 | Outpatient (CLI) | payer MEDICARE, MEDICAID ==
[~2022-03-09] MED LIST changes: +BUPR-70 PO; -BUPR100T3 PO
== END ==
LOC: M LABSMTC 11:39
PROVIDERS: ATTEND Neurological Surgery
DX: Z01.812 Encounter for preprocedural laboratory examination (principal); Z20.822 Contact with and (suspected) exposure to COVID-19

== ENCOUNTER → 2022-03-31 | Outpatient (CLI) | payer MEDICARE, MEDICAID ==
[2022-03-31 15:46] LABS: BLOOD UREA NITROGEN 37 MG/DL (7-18); CALCIUM LEVEL 10.2 MG/DL (8.8-10.2); CARBON DIOXIDE LEVEL 30 MEQ/L (21-32); CHLORIDE LEVEL 102 MEQ/L (98-107); CREATININE FOR GFR 0.76 MG/DL (0.55-1.30); FREE T4 0.81 NG/DL (0.76-1.46); GLOMERULAR FILTRATION RATE > 60.0 (>45); GLUCOSE, FASTING 75 MG/DL (70-100); POTASSIUM SERUM 4.6 MEQ/L (3.5-5.1); SODIUM LEVEL 139 MEQ/L (136-145)
[2022-03-31 17:56] LABS: CORTISOL AM 27.9 UG/DL (4.3-22.4)
== END ==
LOC: M PLALAB 12:43
PROVIDERS: ATTEND Internal Medicine Endocrinology, Diabetes & Metabolism
DX: E11.65 Type 2 diabetes mellitus with hyperglycemia (principal); E23.6 Other disorders of pituitary gland

== ENCOUNTER → 2022-05-19 | Outpatient (CLI) | payer MEDICARE, MEDICAID | LOC: M WUC 08:53 | PROVIDERS: ATTEND Family Medicine | DX: E83.42 Hypomagnesemia (principal) ==

== ENCOUNTER → 2022-07-13 | Outpatient (CLI) | payer MEDICARE, MEDICAID ==
[2022-07-13 17:13] LABS: BLOOD UREA NITROGEN 48 MG/DL (7-18); CALCIUM LEVEL 9.5 MG/DL (8.8-10.2); CARBON DIOXIDE LEVEL 34 MEQ/L (21-32); CHLORIDE LEVEL 101 MEQ/L (98-107); CREATININE FOR GFR 0.94 MG/DL (0.55-1.30); GLOMERULAR FILTRATION RATE > 60.0 (>45); GLUCOSE, FASTING 92 MG/DL (70-100); MAGNESIUM LEVEL 2.4 MG/DL (1.8-2.4); NT-PRO BNP 212 PG/ML (<125); POTASSIUM SERUM 4.8 MEQ/L (3.5-5.1); SODIUM LEVEL 137 MEQ/L (136-145)
== END ==
LOC: M RAD 15:44
PROVIDERS: ATTEND Family Medicine
DX: I50.20 Unspecified systolic (congestive) heart failure (principal); R06.02 Shortness of breath; J84.10 Pulmonary fibrosis, unspecified

== ENCOUNTER → 2022-07-17 | Outpatient (REF) | payer MEDICARE, MEDICAID ==
[2022-07-20 18:38] LABS: CREATININE,RANDOM URINE 19.5 MG/DL; TOTAL PROTEIN,RANDOM URINE 34.8 MG/DL (0.0-12.0)
== END ==
LOC: M LAB REF 17:12
PROVIDERS: ATTEND Nurse Practitioner Family
DX: N18.1 Chronic kidney disease, stage 1 (principal); R80.9 Proteinuria, unspecified

== ENCOUNTER → 2022-08-03 | Outpatient (CLI) | payer MEDICARE, MEDICAID ==
[~2022-08-03] MED LIST changes: +ALEN70TA87 PO
[2022-08-03 16:31] LABS: HEMATOCRIT 39.5 % (36.0-47.0); HEMOGLOBIN 12.1 g/dl (12.0-15.5); MEAN CORPUSCULAR HEMOGLOBIN 29.4 pg (27.0-33.0); MEAN CORPUSCULAR HGB CONC 30.6 g/dl (32.0-36.5); MEAN CORPUSCULAR VOLUME 96.1 fl (80.0-96.0); PLATELET COUNT, AUTOMATED 314 10^3/uL (150-450); RED BLOOD COUNT 4.11 10^6/uL (4.00-5.40); WHITE BLOOD COUNT 5.3 10^3/uL (4.0-10.0)
[2022-08-03 16:51] LABS: INR 0.95
[2022-08-03 16:52] LABS: PARTIAL THROMBOPLASTIN TIME 28.5 SECONDS (25.9-37.0)
[2022-08-03 17:11] LABS: CREATININE FOR GFR 1.26 MG/DL (0.55-1.30); GLOMERULAR FILTRATION RATE 45.4 (>45); POTASSIUM SERUM 4.7 MEQ/L (3.5-5.1)
== END ==
LOC: M WUC 14:30
PROVIDERS: ATTEND Nurse Practitioner Women's Health
DX: Z01.818 Encounter for other preprocedural examination (principal); N13.5 Crossing vessel and stricture of ureter without hydronephrosis

== ENCOUNTER → 2022-08-11 | Outpatient (REF) | payer MEDICARE, MEDICAID ==
[~2022-08-11] MED LIST changes: +ALBU8.5H INH; -JARD1TAB; +JARD1TAB PO; +LISI5TAB11 PO; -NITR50CA34; +NITR50CA34 PO; +VITA-243 PO
[2022-08-11 15:38] LABS: APPEARANCE, URINE MANUAL HAZY (CLEAR); COLOR, URINE MANUAL LT YELLOW (YELLOW)
[2022-08-11 15:39] LABS: BILIRUBIN, URINE MANUAL NEGATIVE (NEGATIVE); GLUCOSE, URINE (UA) MANUAL 2+(250 MG/DL) mg/dL (NEGATIVE); KETONE, URINE MANUAL NEGATIVE (NEGATIVE); LEUKOCYTE ESTERASE, URINE MAN POSITIVE (NEGATIVE); NITRITE, URINE MANUAL POSITIVE (NEGATIVE); PH,URINE MAN 5.5 UNITS (5.0 - 7.0); PROTEIN, URINE MANUAL TRACE mg/dL (NEGATIVE); UROBILINOGEN, URINE MANUAL NORMAL (NORMAL)
[2022-08-11 15:40] LABS: BLOOD URINE MANUAL NEGATIVE (NEGATIVE)
[2022-08-11 16:08] LABS: BACTERIA, URINE LARGE AMOUNT; SQUAMOUS EPITHELIAL CELL URINE SMALL AMOUNT /hpf (SMALL AMT); TRANSITIONAL EPI CELLS, URINE SMALL AMOUNT /hpf; WBC, URINE TNTC /hpf (0-3)
[2022-08-11 16:09] LABS: HYALINE CAST, URINE NONE SEEN /lpf (0-1); MUCUS, URINE SMALL AMOUNT (NEGATIVE)
== END ==
LOC: M SMT 15:18
PROVIDERS: ATTEND Nurse Practitioner Women's Health
DX: Z01.812 Encounter for preprocedural laboratory examination (principal); N13.5 Crossing vessel and stricture of ureter without hydronephrosis

== ENCOUNTER → 2022-08-17 | Outpatient (CLI) | payer MEDICARE, MEDICAID | LOC: M LABSMTC 09:30 | PROVIDERS: ATTEND Anesthesiology | DX: Z01.812 Encounter for preprocedural laboratory examination (principal); Z20.822 Contact with and (suspected) exposure to COVID-19 ==

== ENCOUNTER 2022-08-21 07:23 | Day surgery (SDC) | payer MEDICARE, MEDICAID ==
[~2022-08-21] VITALS: Ht 154.9 cm; Wt 62.6 kg
[~2022-08-21 07:23] MED LIST changes: +ceFAZolin SOD 2 GM in IV 1 EA IV ONE
[2022-08-21] MEDS ORDERED: LR 1,000 ML IV SCH ×2 (07:35→09:25)
[2022-08-21] MEDS ORDERED: MIDAZOLAM INJ 2MG/2ML VIAL (J2250 PER 1MG) As Ordered ONE (08:02)
[2022-08-21] MEDS ORDERED: fentaNYL 250 MCG/5 ML INJECTION As Ordered ONE (08:02)
[2022-08-21] MEDS ORDERED: LIDOCAINE 2% 100MG/5ML SDV (FOR ANES.) As Ordered ONE (08:02)
[2022-08-21] MEDS ORDERED: ONDANSETRON 4MG 2ML VIAL As Ordered ONE (08:02)
[2022-08-21] MEDS ORDERED: dexameTHASONE 4 MG/ML 1ML VIAL (J1100 PER 1MG) As Ordered ONE (08:02)
[2022-08-21] MEDS ORDERED: propofoL 200 MG/20 ML VIAL As Ordered ONE (08:02)
[2022-08-21] MEDS ORDERED: METOCLOPRAMIDE INJ 10MG/2ML VIAL (J2765 PER 1) As Ordered ONE (08:02)
[2022-08-21] MEDS ORDERED: ISOVUE-300 61% 50ML VIAL As Ordered ONE (08:38)
[2022-08-21] MEDS ORDERED: LIDOCAINE 2% 5ML JELLY UROJET As Ordered ONE (08:50)
[2022-08-21] MEDS ORDERED: ACETAMINOPHEN 1000MG 100ML IV BTL (OFIRMEV) (J0131 PER 10MG) As Ordered ONE (09:00)
[2022-08-21] MEDS ORDERED: HYDROMORPHONE HCL 0.5 MG/ 0.5 ML SYRINGE (J1170 PER 1) IV PRN (09:25)
[2022-08-21] MEDS ORDERED: oxyCODONE 5MG TAB PO PRN (09:25)
[2022-08-21] MEDS ORDERED: fentaNYL 100 MCG/2 ML INJECTION IV PRN (09:25)
[2022-08-21] MEDS ORDERED: ONDANSETRON 4MG 2ML VIAL IV PRN (09:25)
[2022-08-21 10:00] VITALS: BP 123/69
== END 2022-08-21 10:20 | disposition home or self-care (01) ==
LOC: M SDC 07:23
PROVIDERS: ATTEND Urology
DX: N13.1 Hydronephrosis with ureteral stricture, not elsewhere classified (principal); I10 Essential (primary) hypertension; E78.5 Hyperlipidemia, unspecified; R60.0 Localized edema; E11.9 Type 2 diabetes mellitus without complications; K58.8 Other irritable bowel syndrome; D64.9 Anemia, unspecified; F70 Mild intellectual disabilities; F41.9 Anxiety disorder, unspecified; F32.A Depression, unspecified; J44.9 Chronic obstructive pulmonary disease, unspecified; G43.909 Migraine, unspecified, not intractable, without status migrainosus; R32 Unspecified urinary incontinence; Z79.51 Long term (current) use of inhaled steroids; G47.33 Obstructive sleep apnea (adult) (pediatric); Z79.84 Long term (current) use of oral hypoglycemic drugs; Z79.899 Other long term (current) drug therapy
CPT/HCPCS: 52332; 74420; C1769; C2617; J0131; J0690; J2250; J2405; J3010; Q9967

== ENCOUNTER → 2022-09-09 | Outpatient (REF) | payer MEDICARE, MEDICAID ==
[~2022-09-09] MED LIST changes: -ceFAZolin SOD 2 GM in IV 1 EA IV ONE
== END ==
LOC: M PLALAB 11:30
PROVIDERS: ATTEND Nurse Practitioner Family
DX: Z12.4 Encounter for screening for malignant neoplasm of cervix (principal); N95.2 Postmenopausal atrophic vaginitis
CPT/HCPCS: 87624; G0123

== ENCOUNTER → 2022-09-18 | Outpatient (CLI) | payer MEDICARE, MEDICAID ==
[2022-09-18 16:22] LABS: HEMOGLOBIN A1c 6.2 %
[2022-09-18 16:34] LABS: ALBUMIN 3.9 GM/DL (3.2-5.2); BILIRUBIN,TOTAL 0.3 MG/DL (0.2-1.0); CALCIUM LEVEL 9.5 MG/DL (8.8-10.2); CHOLESTEROL RISK RATIO 2.776 (<5); CREATININE FOR GFR 1.31 MG/DL (0.55-1.30); GLOMERULAR FILTRATION RATE 43.4 (>45); MALB URINE SIEMENS 69.7 MG/L; POTASSIUM SERUM 4.8 MEQ/L (3.5-5.1); THYROID STIMULATING HORMONE 0.874 uIU/ML (0.358-3.740); TOTAL PROTEIN 7.6 GM/DL (6.4-8.2)
== END ==
LOC: M PLALAB 12:20
PROVIDERS: ATTEND Internal Medicine Endocrinology, Diabetes & Metabolism
DX: E11.65 Type 2 diabetes mellitus with hyperglycemia (principal); E23.6 Other disorders of pituitary gland; E04.1 Nontoxic single thyroid nodule

== ENCOUNTER 2022-09-19 07:56 | Emergency (ER) | payer MEDICARE, MEDICAID ==
[~2022-09-19] VITALS: Ht 154.9 cm; Wt 57.3 kg
[2022-09-19 09:36] VITALS: BP 140/80
== END 2022-09-19 09:39 | disposition home or self-care (01) ==
LOC: M ED 07:56 → EDBD 07:56 → M ED 09:39
DX: N17.9 Acute kidney failure, unspecified (principal); N13.30 Unspecified hydronephrosis; E11.9 Type 2 diabetes mellitus without complications; I10 Essential (primary) hypertension; E78.5 Hyperlipidemia, unspecified; Z88.8 Allergy status to other drugs, medicaments and biological substances; Z96.0 Presence of urogenital implants; Z79.51 Long term (current) use of inhaled steroids; Z79.899 Other long term (current) drug therapy

== ENCOUNTER → 2022-11-11 | Outpatient (CLI) | payer MEDICARE, MEDICAID ==
[2022-11-11 08:39] LABS: BLOOD UREA NITROGEN 53 MG/DL (9-23); CALCIUM LEVEL 9.6 MG/DL (8.3-10.6); CARBON DIOXIDE LEVEL 31 MMOL/L (20-31); CHLORIDE LEVEL 103 MMOL/L (98-107); CREATININE FOR GFR 0.97 MG/DL (0.55-1.30); GLOMERULAR FILTRATION RATE > 60.0 (>45); GLUCOSE, FASTING 111 MG/DL (74-106); POTASSIUM SERUM 4.8 MMOL/L (3.5-5.1); SODIUM LEVEL 140 MMOL/L (136-145)
[2022-11-11 08:41] LABS: CREATININE, URINE 43.7 MG/DL
== END ==
LOC: M LAB 07:31
PROVIDERS: ATTEND Family Medicine
DX: N18.32 Chronic kidney disease, stage 3b (principal); R63.5 Abnormal weight gain

== ENCOUNTER → 2022-12-02 | Outpatient (REF) | payer MEDICARE, MEDICAID | LOC: M LAB REF 17:12 | PROVIDERS: ATTEND Nurse Practitioner Family | DX: I50.9 Heart failure, unspecified (principal) ==

== ENCOUNTER → 2022-12-03 | Outpatient (CLI) | payer MEDICARE, MEDICAID | LOC: M WUC 10:34 | PROVIDERS: ATTEND Nurse Practitioner Family | DX: J84.89 Other specified interstitial pulmonary diseases (principal); I50.9 Heart failure, unspecified ==

== ENCOUNTER → 2022-12-07 | Outpatient (CLI) | payer MEDICARE, MEDICAID | LOC: M WHC 10:03 | PROVIDERS: ATTEND Urology | DX: N13.5 Crossing vessel and stricture of ureter without hydronephrosis (principal); Z96.0 Presence of urogenital implants ==

== ENCOUNTER → 2022-12-08 | Outpatient (CLI) | payer MEDICARE, MEDICAID ==
[~2022-12-08] MED LIST changes: +SIMV-254 PO
== END ==
LOC: M WHC 12:02
PROVIDERS: ATTEND Family Medicine
DX: Z12.31 Encounter for screening mammogram for malignant neoplasm of breast (principal); R92.8 Other abnormal and inconclusive findings on diagnostic imaging of breast

== ENCOUNTER → 2022-12-21 | Outpatient (CLI) | payer MEDICARE, MEDICAID ==
[~2022-12-21] MED LIST changes: -SIMV-254 PO
[2022-12-21 12:43] LABS: CALCIUM LEVEL 9.6 MG/DL (8.3-10.6); CREATININE FOR GFR 1.05 MG/DL (0.55-1.30); POTASSIUM SERUM 4.4 MMOL/L (3.5-5.1)
== END ==
LOC: M WUC 10:00
PROVIDERS: ATTEND Urology
DX: N17.9 Acute kidney failure, unspecified (principal)

== ENCOUNTER → 2023-01-12 | Outpatient (CLI) | payer MEDICARE, MEDICAID | LOC: M WHC 09:29 | PROVIDERS: ATTEND Family Medicine | DX: R92.8 Other abnormal and inconclusive findings on diagnostic imaging of breast (principal) | CPT/HCPCS: 76642; 77065; G0279 ==

== ENCOUNTER → 2023-02-04 | Outpatient (CLI) | payer MEDICARE, MEDICAID ==
[~2023-02-04] MED LIST changes: +SIMV-254 PO
== END ==
LOC: M RAD 15:26
PROVIDERS: ATTEND Urology
DX: N13.5 Crossing vessel and stricture of ureter without hydronephrosis (principal); N13.30 Unspecified hydronephrosis; Z96.0 Presence of urogenital implants

== ENCOUNTER → 2023-02-16 | Outpatient (CLI) | payer MEDICARE, MEDICAID ==
[2023-02-16 07:56] LABS: HEMATOCRIT 42.6 % (36.0-47.0); HEMOGLOBIN 12.9 g/dl (12.0-15.5); MEAN CORPUSCULAR HGB CONC 30.3 g/dl (32.0-36.5); MEAN CORPUSCULAR VOLUME 92.6 fl (80.0-96.0); PLATELET COUNT, AUTOMATED 282 10^3/uL (150-450); WHITE BLOOD COUNT 3.2 10^3/uL (4.0-10.0)
[2023-02-16 08:20] LABS: ALBUMIN 3.7 G/DL (3.2-5.2); BILIRUBIN,TOTAL 0.2 MG/DL (0.3-1.2); CALCIUM LEVEL 9.6 MG/DL (8.3-10.6); CREATININE FOR GFR 1.03 MG/DL (0.55-1.30); GLOMERULAR FILTRATION RATE 57.3 (>45); POTASSIUM SERUM 4.5 MMOL/L (3.5-5.1); TOTAL PROTEIN 6.8 G/DL (5.7-8.2)
== END ==
LOC: M LAB 06:40
PROVIDERS: ATTEND Registered Nurse
DX: R18.8 Other ascites (principal)

== ENCOUNTER → 2023-03-09 | Outpatient (CLI) | payer MEDICARE, MEDICAID ==
[~2023-03-09] MED LIST changes: +JARD1TAB3 PO; -SENN-111 PO; +SENN-188 PO
[2023-03-09 07:53] LABS: BILIRUBIN,TOTAL 0.2 MG/DL (0.3-1.2); CALCIUM LEVEL 9.8 MG/DL (8.3-10.6); CREATININE FOR GFR 1.06 MG/DL (0.55-1.30); GLOMERULAR FILTRATION RATE 55.4 (>45); HDL CHOLESTEROL 78.8 MG/DL (>40); LDL CHOLESTEROL 133.6 MG/DL (<100); NON-HDL-C 158.2 MG/DL; POTASSIUM SERUM 4.7 MMOL/L (3.5-5.1); TOTAL PROTEIN 7.2 G/DL (5.7-8.2)
[2023-03-09 07:55] LABS: FREE T4 1.01 NG/DL (0.89-1.76); THYROID STIMULATING HORMONE 1.452 uIU/ML (0.55-4.78)
== END ==
LOC: M LAB 06:46
PROVIDERS: ATTEND Internal Medicine Endocrinology, Diabetes & Metabolism
DX: E11.65 Type 2 diabetes mellitus with hyperglycemia (principal); E23.6 Other disorders of pituitary gland; R60.9 Edema, unspecified

== ENCOUNTER → 2023-03-09 | Outpatient (CLI) | payer MEDICARE, MEDICAID ==
[2023-03-09 07:19] LABS: HEMATOCRIT 43.1 % (36.0-47.0); HEMOGLOBIN 13.5 g/dl (12.0-15.5); MEAN CORPUSCULAR HEMOGLOBIN 28.5 pg (27.0-33.0); MEAN CORPUSCULAR HGB CONC 31.3 g/dl (32.0-36.5); MEAN CORPUSCULAR VOLUME 91.1 fl (80.0-96.0); PLATELET COUNT, AUTOMATED 274 10^3/uL (150-450); RED BLOOD COUNT 4.73 10^6/uL (4.00-5.40); WHITE BLOOD COUNT 3.4 10^3/uL (4.0-10.0)
[2023-03-09 07:51] LABS: BILIRUBIN,TOTAL 0.2 MG/DL (0.3-1.2); CALCIUM LEVEL 9.8 MG/DL (8.3-10.6); CREATININE FOR GFR 1.05 MG/DL (0.55-1.30); POTASSIUM SERUM 4.8 MMOL/L (3.5-5.1); TOTAL PROTEIN 7.2 G/DL (5.7-8.2)
== END ==
LOC: M LAB 06:43
PROVIDERS: ATTEND Registered Nurse
DX: R60.9 Edema, unspecified (principal)

== ENCOUNTER → 2023-03-10 | Outpatient (CLI) | payer MEDICARE, MEDICAID ==
[2023-03-10 13:03] LABS: APPEARANCE, URINE CLEAR (CLEAR); BACTERIA, URINE AUTO NEGATIVE (NEGATIVE); BILIRUBIN, URINE AUTO NEGATIVE (NEGATIVE); BLOOD, URINE BLOOD NEGATIVE (NEGATIVE); COLOR, URINE STRAW (YELLOW); GLUCOSE, URINE (UA) AUTO 2+ mg/dL (NEGATIVE); KETONE, URINE AUTO NEGATIVE (NEGATIVE); LEUKOCYTE ESTERASE, URINE AUTO NEGATIVE (NEGATIVE); NITRITE, URINE AUTO NEGATIVE (NEGATIVE); PROTEIN, URINE AUTO 1+ mg/dL (NEGATIVE); RBC, URINE AUTO 1 /HPF (0-3); SPECIFIC GRAVITY URINE AUTO 1.013 (1.002-1.035); SQUAMOUS EPITHELIAL CELL UR AU 0 /HPF (0-6); UROBILINOGEN, URINE AUTO 0.2 mg/dL (0.0-2.0); WBC, URINE AUTO 0 /HPF (0-3)
[2023-03-10 13:14] LABS: HEMATOCRIT 44.3 % (36.0-47.0); HEMOGLOBIN 13.5 g/dl (12.0-15.5); MEAN CORPUSCULAR HEMOGLOBIN 28.3 pg (27.0-33.0); MEAN CORPUSCULAR HGB CONC 30.5 g/dl (32.0-36.5); MEAN CORPUSCULAR VOLUME 92.9 fl (80.0-96.0); PLATELET COUNT, AUTOMATED 289 10^3/uL (150-450); RED BLOOD COUNT 4.77 10^6/uL (4.00-5.40); WHITE BLOOD COUNT 4.2 10^3/uL (4.0-10.0)
[2023-03-10 13:38] LABS: BLOOD UREA NITROGEN 49 MG/DL (9-23); CALCIUM LEVEL 10.1 MG/DL (8.3-10.6); CARBON DIOXIDE LEVEL 31 MMOL/L (20-31); CHLORIDE LEVEL 104 MMOL/L (98-107); CREATININE FOR GFR 0.94 MG/DL (0.55-1.30); GLOMERULAR FILTRATION RATE > 60.0 (>45); GLUCOSE, FASTING 71 MG/DL (74-106); POTASSIUM SERUM 4.9 MMOL/L (3.5-5.1); SODIUM LEVEL 141 MMOL/L (136-145)
== END ==
LOC: M WUC 10:36
PROVIDERS: ATTEND Physician Assistant
DX: Z01.818 Encounter for other preprocedural examination (principal)

== ENCOUNTER 2023-03-17 08:28 | Day surgery (SDC) | payer MEDICARE, MEDICAID ==
[~2023-03-17] VITALS: Ht 156.2 cm; Wt 69.9 kg
[~2023-03-17 08:28] MED LIST changes: +ceFAZolin SOD 2 GM in IV 1 EA IV ONE
[2023-03-17] MEDS ORDERED: ISOVUE-300 61% 100ML VIAL As Ordered ONE (09:00)
[2023-03-17] MEDS ORDERED: LR 1,000 ML IV SCH (09:00)
[2023-03-17] MEDS ORDERED: fentaNYL 100 MCG/2 ML INJECTION As Ordered ONE (09:47)
[2023-03-17] MEDS ORDERED: MIDAZOLAM INJ 2MG/2ML VIAL As Ordered ONE (09:47)
[2023-03-17] MEDS ORDERED: LIDOCAINE 2% 100MG/5ML SDV (FOR ANES.) As Ordered ONE (09:48)
[2023-03-17] MEDS ORDERED: propofoL 200 MG/20 ML VIAL As Ordered ONE (09:48)
[2023-03-17] MEDS ORDERED: ACETAMINOPHEN 1000MG 100ML IV BAG As Ordered ONE (09:48)
[2023-03-17] MEDS ORDERED: KETOROLAC 60MG 2ML VIAL As Ordered ONE (09:48)
[2023-03-17] MEDS ORDERED: ONDANSETRON 4MG 2ML VIAL As Ordered ONE (09:48)
[2023-03-17] MEDS ORDERED: LIDOCAINE 2% 5ML JELLY UROJET As Ordered ONE (11:18)
[2023-03-17 12:14] VITALS: BP 166/89; TEMP 98.7
[2023-03-17 14:50] VITALS: O2SAT 92
== END 2023-03-17 13:15 | disposition home or self-care (01) ==
LOC: M SDC 08:28
PROVIDERS: ATTEND Urology
DX: N13.1 Hydronephrosis with ureteral stricture, not elsewhere classified (principal); E11.9 Type 2 diabetes mellitus without complications; E78.5 Hyperlipidemia, unspecified; M85.89 Other specified disorders of bone density and structure, multiple sites; Z79.84 Long term (current) use of oral hypoglycemic drugs; Z79.899 Other long term (current) drug therapy; Z87.891 Personal history of nicotine dependence

== ENCOUNTER 2023-03-17 21:19 | Emergency (ER) | payer MEDICARE, MEDICAID ==
[~2023-03-17] VITALS: Ht 154.9 cm; Wt 70.0 kg
[~2023-03-17 21:19] MED LIST changes: -ceFAZolin SOD 2 GM in IV 1 EA IV ONE
[2023-03-17 22:18] LABS: ABG BASE EXCESS -1.9 (-2.0-2.0); ABG HCO3 23.8 MEQ/L (22.0-26.0); ABG O2 SATURATION 91.5 % (95.0-99.0); ABG STANDARD HCO3 22.8 MEQ/L (22.0-26.0); ABG TOTAL CO2 25.2 MEQ/L (23.0-31.0); ABG pH (ARTERIAL) 7.351 UNITS (7.350-7.450)
[2023-03-17 22:30] LABS: BASO % 0.3 % (0.0-1.0); EOS # 0.1 10^3/uL (0.0-0.5); EOS % 1.6 % (0.0-3.0); HEMATOCRIT 40.3 % (36.0-47.0); HEMOGLOBIN 12.3 g/dl (12.0-15.5); LYMPH # 0.8 10^3/uL (1.5-5.0); LYMPH % 21.6 % (24.0-44.0); MEAN CORPUSCULAR HEMOGLOBIN 28.1 pg (27.0-33.0); MEAN CORPUSCULAR HGB CONC 30.5 g/dl (32.0-36.5); MONO # 0.4 10^3/uL (0.0-0.8); MONO % 11.5 % (2.0-8.0); NEUTROPHILS # 2.4 10^3/uL (1.5-8.5); NEUTROPHILS % 64.5 % (36.0-66.0); PLATELET COUNT, AUTOMATED 278 10^3/uL (150-450); RED BLOOD COUNT 4.38 10^6/uL (4.00-5.40); WHITE BLOOD COUNT 3.7 10^3/uL (4.0-10.0)
[2023-03-17 22:55] LABS: ALBUMIN 3.7 G/DL (3.2-5.2); ALKALINE PHOSPHATASE 43 U/L (46-116); ALT/SGPT 24 U/L (7.0-40); AST/SGOT 27 U/L (<34); BILIRUBIN,DIRECT < 0.1 MG/DL (<0.4); BILIRUBIN,TOTAL < 0.2 MG/DL (0.3-1.2); BLOOD UREA NITROGEN 50 MG/DL (9-23); CALCIUM LEVEL 9.8 MG/DL (8.3-10.6); CARBON DIOXIDE LEVEL 26 MMOL/L (20-31); CHLORIDE LEVEL 104 MMOL/L (98-107); CREATININE FOR GFR 1.24 MG/DL (0.55-1.30); GLOMERULAR FILTRATION RATE 46.2 (>45); GLUCOSE, FASTING 112 MG/DL (74-106); POTASSIUM SERUM 5.5 MMOL/L (3.5-5.1); SODIUM LEVEL 139 MMOL/L (136-145); TOTAL PROTEIN 6.9 G/DL (5.7-8.2)
[2023-03-17 22:57] LABS: THYROXINE (T4) 7.3 UG/DL (4.5-10.9)
[2023-03-17 22:58] LABS: THYROID STIMULATING HORMONE 0.874 uIU/ML (0.55-4.78)
[2023-03-17] MEDS ORDERED: PATIROMER SORBITEX CALCIUM 8.4 GM POWDER PACKET (VELTASSA) PO ONE (23:05)
[2023-03-17] MEDS ORDERED: ALBUTEROL SULFATE 2.5MG/0.5ML INH NEB SOLN NEB ONE (23:05)
[2023-03-17 23:45] VITALS: BP 124/79
== END 2023-03-17 23:55 | disposition home or self-care (01) ==
LOC: M ED 21:19 → EDBD 21:19 → M ED 23:55
DX: E87.5 Hyperkalemia (principal); J44.9 Chronic obstructive pulmonary disease, unspecified; J98.11 Atelectasis; E11.9 Type 2 diabetes mellitus without complications; I10 Essential (primary) hypertension; F32.9 Major depressive disorder, single episode, unspecified; Z87.442 Personal history of urinary calculi; Z96.0 Presence of urogenital implants; Z87.891 Personal history of nicotine dependence; Z79.84 Long term (current) use of oral hypoglycemic drugs; Z79.899 Other long term (current) drug therapy; Z88.8 Allergy status to other drugs, medicaments and biological substances
CPT/HCPCS: 36600; 71045; 74420; 80048; 80076; 82803; 83880; 84436; 84443; 85025; 87040; 93005; 93041; 94010; 94640; 94760; 99285; J0131; J0690; J1100; J1885; J2250; J2405; J3010; Q9967

== ENCOUNTER → 2023-03-19 | Outpatient (CLI) | payer MEDICARE, MEDICAID ==
[2023-03-19 17:25] LABS: ALBUMIN 3.8 G/DL (3.2-5.2); BILIRUBIN,TOTAL 0.2 MG/DL (0.3-1.2); CALCIUM LEVEL 9.8 MG/DL (8.3-10.6); CREATININE FOR GFR 1.07 MG/DL (0.55-1.30); GLOMERULAR FILTRATION RATE 54.8 (>45); POTASSIUM SERUM 4.6 MMOL/L (3.5-5.1)
== END ==
LOC: M WUC 11:01
PROVIDERS: ATTEND Registered Nurse
DX: E87.5 Hyperkalemia (principal)

== ENCOUNTER → 2023-04-01 | Outpatient (CLI) | payer MEDICARE, MEDICAID ==
[2023-04-01 08:32] LABS: ALBUMIN 4.1 G/DL (3.2-5.2); BILIRUBIN,TOTAL 0.2 MG/DL (0.3-1.2); CALCIUM LEVEL 10.1 MG/DL (8.3-10.6); CREATININE FOR GFR 1.03 MG/DL (0.55-1.30); GLOMERULAR FILTRATION RATE 57.3 (>45); POTASSIUM SERUM 4.8 MMOL/L (3.5-5.1); TOTAL PROTEIN 7.1 G/DL (5.7-8.2)
== END ==
LOC: M LAB 07:25
PROVIDERS: ATTEND Registered Nurse
DX: E87.5 Hyperkalemia (principal)

== ENCOUNTER → 2023-06-07 | Outpatient (CLI) | payer MEDICARE, MEDICAID ==
[~2023-06-07] MED LIST changes: -HM S0.65 NARES; +SALI0.6531 NARES
[2023-06-07 19:00] LABS: ALBUMIN 3.7 G/DL (3.2-5.2); ALKALINE PHOSPHATASE 55 U/L (46-116); ALT/SGPT 18 U/L (7.0-40); AST/SGOT 12 U/L (<34); BILIRUBIN,TOTAL 0.2 MG/DL (0.3-1.2); BLOOD UREA NITROGEN 50 MG/DL (9-23); CALCIUM LEVEL 9.3 MG/DL (8.3-10.6); CARBON DIOXIDE LEVEL 22 MMOL/L (20-31); CHLORIDE LEVEL 106 MMOL/L (98-107); CHOLESTEROL LEVEL 164 MG/DL (<200); CHOLESTEROL RISK RATIO 2.22 (<5); CREATININE FOR GFR 0.96 MG/DL (0.55-1.30); FREE T4 1.17 NG/DL (0.89-1.76); GLOMERULAR FILTRATION RATE > 60.0 (>45); GLUCOSE, FASTING 120 MG/DL (74-106); HDL CHOLESTEROL 73.6 MG/DL (>40); LDL CHOLESTEROL 52.4 MG/DL (<100); NON-HDL-C 90.4 MG/DL; POTASSIUM SERUM 3.9 MMOL/L (3.5-5.1); SODIUM LEVEL 139 MMOL/L (136-145); THYROID STIMULATING HORMONE 0.736 uIU/ML (0.55-4.78); TOTAL PROTEIN 6.5 G/DL (5.7-8.2); TRIGLYCERIDES LEVEL 190 MG/DL (<150)
== END ==
LOC: M WUC 12:42
PROVIDERS: ATTEND Internal Medicine Endocrinology, Diabetes & Metabolism
DX: E11.65 Type 2 diabetes mellitus with hyperglycemia (principal); E23.6 Other disorders of pituitary gland

== ENCOUNTER → 2023-09-16 | Outpatient (CLI) | payer MEDICARE, MEDICAID ==
[~2023-09-16] MED LIST changes: -CEFD300C41 PO; +CEFD300C42 PO
== END ==
LOC: M RAD 11:55
PROVIDERS: ATTEND Urology
DX: N13.5 Crossing vessel and stricture of ureter without hydronephrosis (principal)

== ENCOUNTER 2023-09-19 09:57 | Emergency (ER) | payer MEDICARE, MEDICAID ==
[2023-09-19 10:08] VITALS: TEMP 97.6
[2023-09-19] MEDS ORDERED: BOOSTRIX VACCINE (TETANUS/DIPHTH/ACEL. PERTUSSIS) 0.5ML SYR IM.IMMUN ONE (10:10)
[2023-09-19] MEDS ORDERED: LIDOCAINE 2% W/EPINEPHRINE 20ML VIAL **PRES FREE INJ ONE (10:15)
[2023-09-19 12:08] VITALS: BP 136/74; O2SAT 95
== END 2023-09-19 12:10 | disposition home or self-care (01) ==
LOC: EDBD 09:57 → M ED 09:57
DX: S51.811A Laceration without foreign body of right forearm, initial encounter (principal); W01.0XXA Fall on same level from slipping, tripping and stumbling without subsequent striking against object, initial encounter; E11.9 Type 2 diabetes mellitus without complications; E78.5 Hyperlipidemia, unspecified; Z88.4 Allergy status to anesthetic agent; Z87.891 Personal history of nicotine dependence; Y92.009 Unspecified place in unspecified non-institutional (private) residence as the place of occurrence of the external cause; Z79.52 Long term (current) use of systemic steroids; Z79.891 Long term (current) use of opiate analgesic; Z79.4 Long term (current) use of insulin; Z79.83 Long term (current) use of bisphosphonates; Z79.811 Long term (current) use of aromatase inhibitors; Z79.899 Other long term (current) drug therapy; Z23 Encounter for immunization

== ENCOUNTER → 2023-12-17 | Outpatient (CLI) | payer MEDICARE, MEDICAID ==
[~2023-12-17] MED LIST changes: +CEFD1CAP9 PO; -CEFD300C42 PO; -HYDR-3911 PO; +HYDR50TA46 PO
[2023-12-17 06:49] LABS: HEMATOCRIT 44.2 % (36.0-47.0); MEAN CORPUSCULAR HEMOGLOBIN 29.4 pg (27.0-33.0); MEAN CORPUSCULAR HGB CONC 31.7 g/dl (32.0-36.5); MEAN CORPUSCULAR VOLUME 92.9 fl (80.0-96.0); PLATELET COUNT, AUTOMATED 235 10^3/uL (150-450); RED BLOOD COUNT 4.76 10^6/uL (4.00-5.40); WHITE BLOOD COUNT 3.9 10^3/uL (4.0-10.0)
[2023-12-17 06:51] LABS: APPEARANCE, URINE CLEAR (CLEAR); BACTERIA, URINE AUTO NEGATIVE (NEGATIVE); BILIRUBIN, URINE AUTO NEGATIVE (NEGATIVE); BLOOD, URINE BLOOD NEGATIVE (NEGATIVE); COLOR, URINE YELLOW (YELLOW); GLUCOSE, URINE (UA) AUTO 2+ mg/dL (NEGATIVE); KETONE, URINE AUTO NEGATIVE (NEGATIVE); LEUKOCYTE ESTERASE, URINE AUTO 2+ (NEGATIVE); NITRITE, URINE AUTO NEGATIVE (NEGATIVE); PROTEIN, URINE AUTO 1+ mg/dL (NEGATIVE); RBC, URINE AUTO 5 /HPF (0-3); SPECIFIC GRAVITY URINE AUTO 1.016 (1.002-1.035); SQUAMOUS EPITHELIAL CELL UR AU 1 /HPF (0-6); UROBILINOGEN, URINE AUTO 0.2 mg/dL (0.0-2.0); WBC, URINE AUTO 7 /HPF (0-3)
[2023-12-17 07:08] LABS: HEMOGLOBIN A1c 5.9 % (4.0-6.0)
[2023-12-17 07:19] LABS: CREATININE, URINE 65.8 MG/DL; MAU/CREAT RATIO 205.1 MCG/MG (0.0-30.0)
[2023-12-17 07:22] LABS: BILIRUBIN,TOTAL 0.2 MG/DL (0.3-1.2); CALCIUM LEVEL 8.8 MG/DL (8.3-10.6); CREATININE FOR GFR 1.09 MG/DL (0.55-1.30); GLOMERULAR FILTRATION RATE 53.5 (>45); POTASSIUM SERUM 4.4 MMOL/L (3.5-5.1); TOTAL PROTEIN 7.1 G/DL (5.7-8.2)
[2023-12-17 07:23] LABS: FREE T4 1.13 NG/DL (0.89-1.76); THYROID STIMULATING HORMONE 1.659 uIU/ML (0.55-4.78)
[2023-12-17 07:24] LABS: FREE T3 3.3 PG/ML (2.3-4.2)
== END ==
LOC: M LAB 06:14
PROVIDERS: ATTEND Registered Nurse
DX: E11.9 Type 2 diabetes mellitus without complications (principal); E66.9 Obesity, unspecified

== ENCOUNTER → 2024-01-24 | Outpatient (REF) | payer MEDICARE, MEDICAID | LOC: M SMT 16:56 | PROVIDERS: ATTEND Urology | DX: Z01.818 Encounter for other preprocedural examination (principal); N13.5 Crossing vessel and stricture of ureter without hydronephrosis; N39.0 Urinary tract infection, site not specified ==

== ENCOUNTER → 2024-02-02 | Outpatient (CLI) | payer MEDICARE, MEDICAID ==
[2024-02-02 07:37] LABS: HEMATOCRIT 46.1 % (36.0-47.0); HEMOGLOBIN 14.3 g/dl (12.0-15.5); MEAN CORPUSCULAR HEMOGLOBIN 28.9 pg (27.0-33.0); MEAN CORPUSCULAR VOLUME 93.3 fl (80.0-96.0); PLATELET COUNT, AUTOMATED 259 10^3/uL (150-450); RED BLOOD COUNT 4.94 10^6/uL (4.00-5.40); WHITE BLOOD COUNT 4.1 10^3/uL (4.0-10.0)
[2024-02-02 08:07] LABS: CALCIUM LEVEL 9.1 MG/DL (8.3-10.6); CREATININE FOR GFR 1.16 MG/DL (0.55-1.30); GLOMERULAR FILTRATION RATE 49.8 (>45); POTASSIUM SERUM 4.6 MMOL/L (3.5-5.1)
== END ==
LOC: M LAB 06:54
PROVIDERS: ATTEND Urology
DX: N13.5 Crossing vessel and stricture of ureter without hydronephrosis (principal); N39.0 Urinary tract infection, site not specified

== ENCOUNTER → 2024-02-02 | Outpatient (CLI) | payer MEDICARE, MEDICAID | LOC: M WUC 10:38 | PROVIDERS: ATTEND Urology | DX: Z01.818 Encounter for other preprocedural examination (principal); N13.5 Crossing vessel and stricture of ureter without hydronephrosis; N39.0 Urinary tract infection, site not specified ==

== ENCOUNTER 2024-02-14 07:15 | Day surgery (SDC) | payer MEDICARE, MEDICAID ==
[~2024-02-14] VITALS: Ht 156.2 cm; Wt 66.7 kg
[~2024-02-14 07:15] MED LIST changes: +ATOG60TA PO; +CHOL4PW PO; +SYST0.4D2 OP; +TOPA100T12 PO; +ceFAZolin SOD 2 GM in IV 1 EA IV ONE
[2024-02-14] MEDS: LR 1,000 ML IV SCH (08:03)
[2024-02-14] MEDS ORDERED: MIDAZOLAM INJ 2MG/2ML VIAL As Ordered ONE (09:08)
[2024-02-14] MEDS ORDERED: propofoL 200 MG/20 ML VIAL As Ordered ONE (09:08)
[2024-02-14] MEDS ORDERED: fentaNYL 100 MCG/2 ML INJECTION As Ordered ONE (09:08)
[2024-02-14] MEDS ORDERED: ISOVUE-300 61% 100ML VIAL As Ordered ONE (09:08)
[2024-02-14] MEDS ORDERED: LIDOCAINE 2% 5ML JELLY UROJET As Ordered ONE (09:13)
[2024-02-14 10:30] VITALS: BP 142/89; TEMP 97.4; O2SAT 98
== END 2024-02-14 10:34 | disposition home or self-care (01) ==
LOC: M SDC 07:15
PROVIDERS: ATTEND Urology
DX: N13.1 Hydronephrosis with ureteral stricture, not elsewhere classified (principal); R32 Unspecified urinary incontinence; E11.9 Type 2 diabetes mellitus without complications; I11.9 Hypertensive heart disease without heart failure; J44.9 Chronic obstructive pulmonary disease, unspecified; D64.9 Anemia, unspecified; Z79.84 Long term (current) use of oral hypoglycemic drugs; Z79.899 Other long term (current) drug therapy; G47.30 Sleep apnea, unspecified; K21.9 Gastro-esophageal reflux disease without esophagitis; K58.9 Irritable bowel syndrome, unspecified; M85.80 Other specified disorders of bone density and structure, unspecified site; Z88.4 Allergy status to anesthetic agent
CPT/HCPCS: 52332; 76000; C1769; C2617; J2250; J3010; Q9967

== ENCOUNTER 2024-02-29 08:21 | Emergency (ER) | payer MEDICARE, MEDICAID ==
[~2024-02-29] VITALS: Ht 154.9 cm; Wt 149.0 kg
[~2024-02-29 08:21] MED LIST changes: -ceFAZolin SOD 2 GM in IV 1 EA IV ONE
[2024-02-29] MEDS: ACETAMINOPHEN 500 MG TAB PO ONE (09:50)
[2024-02-29 12:42] VITALS: BP 136/91; TEMP 97.7; O2SAT 92
== END 2024-02-29 12:47 | disposition home or self-care (01) ==
LOC: M ED 08:21 → EDBD 08:21 → M ED 12:47
DX: M25.551 Pain in right hip (principal); M25.552 Pain in left hip; W19.XXXA Unspecified fall, initial encounter; M16.0 Bilateral primary osteoarthritis of hip; M51.34 Other intervertebral disc degeneration, thoracic region; M46.92 Unspecified inflammatory spondylopathy, cervical region; M48.02 Spinal stenosis, cervical region; M25.78 Osteophyte, vertebrae; M51.36 Other intervertebral disc degeneration, lumbar region; E04.9 Nontoxic goiter, unspecified; I10 Essential (primary) hypertension; J44.9 Chronic obstructive pulmonary disease, unspecified; G43.909 Migraine, unspecified, not intractable, without status migrainosus; G47.33 Obstructive sleep apnea (adult) (pediatric); Z88.4 Allergy status to anesthetic agent; Y92.009 Unspecified place in unspecified non-institutional (private) residence as the place of occurrence of the external cause; Y93.89 Activity, other specified; Y99.9 Unspecified external cause status

== ENCOUNTER → 2024-03-03 | Outpatient (CLI) | payer MEDICARE, MEDICAID ==
[2024-03-03 08:32] LABS: CHOLESTEROL RISK RATIO 2.34 (<5); LDL CHOLESTEROL 64.6 MG/DL (<100)
== END ==
LOC: M LAB 07:04
PROVIDERS: ATTEND Registered Nurse
DX: E78.2 Mixed hyperlipidemia (principal)

== ENCOUNTER → 2024-03-03 | Outpatient (CLI) | payer MEDICARE, MEDICAID | LOC: M EKG 07:02 | PROVIDERS: ATTEND Urology | DX: Z01.818 Encounter for other preprocedural examination (principal); N13.5 Crossing vessel and stricture of ureter without hydronephrosis ==

== ENCOUNTER → 2024-05-17 | Outpatient (CLI) | payer MEDICARE, MEDICAID ==
[~2024-05-17] MED LIST changes: +NITR100C3 PO; -NITR1CAP11 PO
== END ==
LOC: M WUC 11:42
PROVIDERS: ATTEND Registered Nurse
DX: M16.12 Unilateral primary osteoarthritis, left hip (principal); M85.88 Other specified disorders of bone density and structure, other site; M25.552 Pain in left hip

== ENCOUNTER → 2024-05-19 | Outpatient (CLI) | payer MEDICARE, MEDICAID ==
[2024-05-19 08:22] LABS: HEMOGLOBIN 14.1 g/dl (12.0-15.5); MEAN CORPUSCULAR HEMOGLOBIN 28.1 pg (27.0-33.0); MEAN CORPUSCULAR HGB CONC 30.7 g/dl (32.0-36.5); MEAN CORPUSCULAR VOLUME 91.6 fl (80.0-96.0); PLATELET COUNT, AUTOMATED 338 10^3/uL (150-450); RED BLOOD COUNT 5.02 10^6/uL (4.00-5.40); WHITE BLOOD COUNT 3.9 10^3/uL (4.0-10.0)
[2024-05-19 08:45] LABS: ALBUMIN 3.6 G/DL (3.2-5.2); ALKALINE PHOSPHATASE 73 U/L (46-116); ALT/SGPT 21 U/L (7.0-40); AST/SGOT 20 U/L (<34); BILIRUBIN,TOTAL 0.2 MG/DL (0.3-1.2); BLOOD UREA NITROGEN 24 MG/DL (9-23); CALCIUM LEVEL 9.7 MG/DL (8.3-10.6); CARBON DIOXIDE LEVEL 30 MMOL/L (20-31); CHLORIDE LEVEL 108 MMOL/L (98-107); CHOLESTEROL LEVEL 180 MG/DL (<200); CHOLESTEROL RISK RATIO 2.87 (<5); CREATININE FOR GFR 0.89 MG/DL (0.55-1.30); GLOMERULAR FILTRATION RATE > 60.0 (>45); GLUCOSE, FASTING 96 MG/DL (74-106); HDL CHOLESTEROL 62.7 MG/DL (>40); LDL CHOLESTEROL 89.9 MG/DL (<100); MAGNESIUM LEVEL 1.7 MG/DL (1.8-2.4); NON-HDL-C 117.3 MG/DL; POTASSIUM SERUM 4.1 MMOL/L (3.5-5.1); SODIUM LEVEL 145 MMOL/L (136-145); TOTAL PROTEIN 7.1 G/DL (5.7-8.2); TRIGLYCERIDES LEVEL 137 MG/DL (<150)
[2024-05-19 08:46] LABS: THYROID STIMULATING HORMONE 1.075 uIU/ML (0.55-4.78)
[2024-05-19 08:47] LABS: FREE T4 1.14 NG/DL (0.89-1.76); TOTAL 25(OH) VITAMIN D 15.8 NG/ML (20.0-100.0); VITAMIN B12 LEVEL 562 PG/ML (211-911)
[2024-05-19 08:50] LABS: FREE T3 2.7 PG/ML (2.3-4.2)
[2024-05-19 08:55] LABS: CREATININE, URINE 118.2 MG/DL
[2024-05-19 09:09] LABS: MAU/CREAT RATIO 576.9 MCG/MG (0.0-30.0)
[2024-05-19 09:24] LABS: HEMOGLOBIN A1c 5.8 % (4.0-6.0)
== END ==
LOC: M LAB 06:57
PROVIDERS: ATTEND Registered Nurse
DX: E11.9 Type 2 diabetes mellitus without complications (principal); F33.9 Major depressive disorder, recurrent, unspecified; E78.2 Mixed hyperlipidemia; K21.9 Gastro-esophageal reflux disease without esophagitis; Z79.899 Other long term (current) drug therapy

== ENCOUNTER → 2024-08-08 | Outpatient (CLI) | payer MEDICARE, MEDICAID | LOC: M RAD 10:10 | PROVIDERS: ATTEND Urology | DX: N13.5 Crossing vessel and stricture of ureter without hydronephrosis (principal); Z96.0 Presence of urogenital implants; N28.1 Cyst of kidney, acquired ==

== ENCOUNTER → 2024-08-10 | Outpatient (CLI) | payer MEDICARE, MEDICAID | LOC: M WUC 11:21 | PROVIDERS: ATTEND Internal Medicine Endocrinology, Diabetes & Metabolism | DX: E23.6 Other disorders of pituitary gland (principal) ==

== ENCOUNTER → 2024-10-11 | Outpatient (REF) | payer MEDICARE, MEDICAID ==
[~2024-10-11] MED LIST changes: +GABA-1172 PO; -GABA-282 PO
== END ==
LOC: M LAB REF 17:04
PROVIDERS: ATTEND Nurse Practitioner Family
DX: N39.0 Urinary tract infection, site not specified (principal)

== ENCOUNTER → 2024-11-08 | Outpatient (REF) | payer MEDICARE, MEDICAID ==
[2024-11-08 17:11] LABS: APPEARANCE, URINE HAZY (CLEAR); BACTERIA, URINE AUTO NEGATIVE (NEGATIVE); BILIRUBIN, URINE AUTO NEGATIVE (NEGATIVE); BLOOD, URINE BLOOD 3+ (NEGATIVE); COLOR, URINE YELLOW (YELLOW); GLUCOSE, URINE (UA) AUTO 3+ mg/dL (NEGATIVE); KETONE, URINE AUTO NEGATIVE (NEGATIVE); LEUKOCYTE ESTERASE, URINE AUTO 1+ (NEGATIVE); MUCUS, URINE SMALL (NEGATIVE); NITRITE, URINE AUTO NEGATIVE (NEGATIVE); PROTEIN, URINE AUTO 2+ mg/dL (NEGATIVE); RBC, URINE AUTO TNTC /HPF (0-3); SPECIFIC GRAVITY URINE AUTO 1.016 (1.002-1.035); SQUAMOUS EPITHELIAL CELL UR AU 1 /HPF (0-6); UROBILINOGEN, URINE AUTO 0.2 mg/dL (0.0-2.0); WBC, URINE AUTO 33 /HPF (0-3)
== END ==
LOC: M LAB REF 16:06
PROVIDERS: ATTEND Nurse Practitioner Family
DX: N39.0 Urinary tract infection, site not specified (principal)

== ENCOUNTER → 2024-11-10 | Outpatient (REF) | payer MEDICARE, MEDICAID ==
[2024-11-10 19:19] LABS: APPEARANCE, URINE CLOUDY (CLEAR); BACTERIA, URINE AUTO NEGATIVE (NEGATIVE); BILIRUBIN, URINE AUTO NEGATIVE (NEGATIVE); BLOOD, URINE BLOOD 2+ (NEGATIVE); COLOR, URINE YELLOW (YELLOW); GLUCOSE, URINE (UA) AUTO 3+ mg/dL (NEGATIVE); KETONE, URINE AUTO TRACE mg/dL (NEGATIVE); LEUKOCYTE ESTERASE, URINE AUTO 2+ (NEGATIVE); MUCUS, URINE SMALL (NEGATIVE); NITRITE, URINE AUTO NEGATIVE (NEGATIVE); PROTEIN, URINE AUTO 3+ mg/dL (NEGATIVE); RBC, URINE AUTO TNTC /HPF (0-3); SPECIFIC GRAVITY URINE AUTO 1.021 (1.002-1.035); SQUAMOUS EPITHELIAL CELL UR AU 2 /HPF (0-6); UROBILINOGEN, URINE AUTO 0.2 mg/dL (0.0-2.0); WBC, URINE AUTO TNTC /HPF (0-3)
== END ==
LOC: M LAB REF 19:01
PROVIDERS: ATTEND Nurse Practitioner Family
DX: N39.0 Urinary tract infection, site not specified (principal)

== ENCOUNTER → 2025-02-02 | Outpatient (CLI) | payer MEDICARE, MEDICAID ==
[2025-02-02 11:26] LABS: HEMATOCRIT 44.9 % (36.0-47.0); HEMOGLOBIN 14.1 g/dl (12.0-15.5); MEAN CORPUSCULAR HGB CONC 31.4 g/dl (32.0-36.5); MEAN CORPUSCULAR VOLUME 92.2 fl (80.0-96.0); PLATELET COUNT, AUTOMATED 287 10^3/uL (150-450); RED BLOOD COUNT 4.87 10^6/uL (4.00-5.40); WHITE BLOOD COUNT 3.3 10^3/uL (4.0-10.0)
[2025-02-02 11:48] LABS: CALCIUM LEVEL 9.7 MG/DL (8.3-10.6); CREATININE FOR GFR 1.09 MG/DL (0.55-1.30); GLOMERULAR FILTRATION RATE 53.3 (>45); POTASSIUM SERUM 4.5 MMOL/L (3.5-5.1)
== END ==
LOC: M RAD 10:04
PROVIDERS: ATTEND Urology
DX: Z01.818 Encounter for other preprocedural examination (principal); N13.5 Crossing vessel and stricture of ureter without hydronephrosis; J43.9 Emphysema, unspecified; R00.1 Bradycardia, unspecified; R94.31 Abnormal electrocardiogram [ECG] [EKG]

== ENCOUNTER → 2025-02-13 | Outpatient (REF) | payer MEDICARE, MEDICAID ==
[~2025-02-13] MED LIST changes: +ACET-910 PO; +ERGO500029 PO; +HYDR50TA70 PO; +MAALSUS19 PO; +METH-1164 PO; +SUMA50TA2 PO
[2025-02-13 18:29] LABS: APPEARANCE, URINE CLEAR (CLEAR); BACTERIA, URINE AUTO 1+ (NEGATIVE); BILIRUBIN, URINE AUTO NEGATIVE (NEGATIVE); BLOOD, URINE BLOOD NEGATIVE (NEGATIVE); COLOR, URINE YELLOW (YELLOW); GLUCOSE, URINE (UA) AUTO 3+ mg/dL (NEGATIVE); KETONE, URINE AUTO NEGATIVE (NEGATIVE); LEUKOCYTE ESTERASE, URINE AUTO 1+ (NEGATIVE); NITRITE, URINE AUTO POSITIVE (NEGATIVE); PROTEIN, URINE AUTO 1+ mg/dL (NEGATIVE); RBC, URINE AUTO 0 /HPF (0-3); SPECIFIC GRAVITY URINE AUTO 1.008 (1.002-1.035); SQUAMOUS EPITHELIAL CELL UR AU 0 /HPF (0-6); UROBILINOGEN, URINE AUTO 0.2 mg/dL (0.0-2.0); WBC, URINE AUTO 11 /HPF (0-3)
== END ==
LOC: M SMT 17:50
PROVIDERS: ATTEND Urology
DX: Z01.818 Encounter for other preprocedural examination (principal); N13.5 Crossing vessel and stricture of ureter without hydronephrosis; N39.0 Urinary tract infection, site not specified

== ENCOUNTER 2025-02-21 09:27 | Day surgery (SDC) | payer MEDICARE, MEDICAID ==
[~2025-02-21] VITALS: Ht 154.9 cm; Wt 57.4 kg
[~2025-02-21 09:27] MED LIST changes: +LIDOCAINE 2% 100MG/5ML SDV (FOR ANES.) As Ordered ONE; +MIDAZOLAM INJ 2MG/2ML VIAL As Ordered ONE; +fentaNYL 100 MCG/2 ML INJECTION As Ordered ONE; +propofoL 200 MG/20 ML VIAL As Ordered ONE
[2025-02-21] MEDS ORDERED: LR 1,000 ML IV SCH (10:00)
[2025-02-21] MEDS ORDERED: ONDANSETRON 4MG 2ML VIAL As Ordered ONE (10:57)
[2025-02-21] MEDS: ceFAZolin SOD 2 GM IV ONCE IV ONE (11:12)
[2025-02-21] MEDS: LIDOCAINE 2% 5ML JELLY UROJET As Ordered ONE (11:16)
[2025-02-21] MEDS: ISOVUE-300 61% 100ML VIAL As Ordered ONE (11:30)
[2025-02-21 12:33] VITALS: BP 115/61; TEMP 97.2; O2SAT 97
== END 2025-02-21 12:40 | disposition home or self-care (01) ==
LOC: M SDC 09:27
PROVIDERS: ATTEND Urology
DX: N13.2 Hydronephrosis with renal and ureteral calculous obstruction (principal); I10 Essential (primary) hypertension; E78.5 Hyperlipidemia, unspecified; I50.9 Heart failure, unspecified; E11.9 Type 2 diabetes mellitus without complications; K21.9 Gastro-esophageal reflux disease without esophagitis; K57.92 Diverticulitis of intestine, part unspecified, without perforation or abscess without bleeding; D64.9 Anemia, unspecified; F41.9 Anxiety disorder, unspecified; F32.A Depression, unspecified; G43.909 Migraine, unspecified, not intractable, without status migrainosus; J44.9 Chronic obstructive pulmonary disease, unspecified; G47.30 Sleep apnea, unspecified; F70 Mild intellectual disabilities; Z88.8 Allergy status to other drugs, medicaments and biological substances
CPT/HCPCS: 52332; 76000; C1769; C2617; J0690; J2250; J2405; J3010; Q9967

== ENCOUNTER → 2025-03-02 | Outpatient (CLI) | payer MEDICARE, MEDICAID ==
[~2025-03-02] MED LIST changes: -LIDOCAINE 2% 100MG/5ML SDV (FOR ANES.) As Ordered ONE; -MIDAZOLAM INJ 2MG/2ML VIAL As Ordered ONE; -fentaNYL 100 MCG/2 ML INJECTION As Ordered ONE; -propofoL 200 MG/20 ML VIAL As Ordered ONE
== END ==
LOC: M RAD 16:01
PROVIDERS: ATTEND Nurse Practitioner Family
DX: E04.1 Nontoxic single thyroid nodule (principal)

== ENCOUNTER → 2025-05-30 | Outpatient (REF) | payer MEDICARE, MEDICAID ==
[~2025-05-30] MED LIST changes: +AMMO12CR4 TOP; -AMMO12CR7 TOP; -BYDU2INJ7 SC; +EXEN2AUT SC
== END ==
LOC: M LAB REF 17:09
PROVIDERS: ATTEND Nurse Practitioner Family
DX: N39.0 Urinary tract infection, site not specified (principal)

== ENCOUNTER → 2025-08-07 | Outpatient (CLI) | payer MEDICARE, MEDICAID | LOC: M WHC 14:00 | PROVIDERS: ATTEND Obstetrics & Gynecology | DX: Z12.31 Encounter for screening mammogram for malignant neoplasm of breast (principal); R92.333 Mammographic heterogeneous density, bilateral breasts ==

== ENCOUNTER → 2025-08-30 | Outpatient (CLI) | payer MEDICARE, MEDICAID ==
[2025-08-30 16:42] LABS: CALCIUM LEVEL 9.7 MG/DL (8.3-10.6); CARBON DIOXIDE LEVEL 32.0 MMOL/L (20-31); CHLORIDE LEVEL 100.0 MMOL/L (98-107); CREATININE FOR GFR 0.86 MG/DL (0.55-1.30); GLOMERULAR FILTRATION RATE 73.5 (>45); POTASSIUM SERUM 4.6 MMOL/L (3.5-5.1); SODIUM LEVEL 139.0 MMOL/L (136-145)
[2025-08-30 16:45] LABS: FREE T4 1.14 NG/DL (0.89-1.76)
== END ==
LOC: M PLALAB 12:13
PROVIDERS: ATTEND Nurse Practitioner Family
DX: E23.6 Other disorders of pituitary gland (principal); E11.65 Type 2 diabetes mellitus with hyperglycemia; E04.1 Nontoxic single thyroid nodule

== ENCOUNTER → 2025-09-14 | Outpatient (CLI) | payer MEDICARE, MEDICAID | LOC: M RAD 14:58 | PROVIDERS: ATTEND Urology | DX: N13.5 Crossing vessel and stricture of ureter without hydronephrosis (principal) ==